=== PATIENT | female | born 2000 | race Caucasian/White ===

== ENCOUNTER 2023-01-19 08:00 | Emergency (ER) | payer BC, SELFPAY ==
[2023-01-19 08:07] VITALS: BP 120/81; PULSE 82; RESP 18; TEMP 36.6; O2SAT 100; BMI 20.4
--- NOTE | 2023-01-19 08:18 | XR_ITS ---
The [address] [address] Patient Name: LEYDI SHAH MRN: [id number] date: 2000 Sex: F Assigned Patient Location: ER Current Patient Location: Accession/Order Number: [id number] Exam Date: 01/19/2023 08:25 Report Date: 01/19/2023 08:52 At the request of: YAW VELÁSQUEZ Procedure: XR ankle LT min 3V PROCEDURE: XR ankle LT min 3V COMPARISON: None. HISTORY: fall FINDINGS: BONES:No fracture, acute abnormality, or significant arthropathy. SOFT TISSUES:Negative. No visible soft tissue swelling. EFFUSION:None visible. OTHER: Negative. XR/XR ankle LT min 3V IMPRESSION: No acute radiographic abnormality Electronically authenticated by: REENA RANDLE Date: 01/19/2023 08:52
--- NOTE | 2023-01-19 08:19 | ED.LOWEXI1 ---
HPI - Extremity Injury (Lower) General Chief Complaint: Extremity Injury, Lower Stated Complaint: LOWER EXTREMITY INJURY-L ANKLE Time Seen by Provider: 01/19/23 08:14 Source: patient Mode of arrival: walk-in History of Present Illness HPI Narrative: patient here with an injury to her left ankle. It is an isolated injury. She states that she was stepping out of her pickup truck and rolled her ankle while stepping down. She's had previous fractures to that area but thinks is probably a sprain today. Has no other collateral damage to the other orthopedic structures are joints. She was on her way to work. Most her pain is on the lateral aspect of her left ankle. Is not having pain in her knee or hip. Related Data Allergies Allergy/AdvReac Type Severity Reaction Status Date / Time penicillin G Allergy Mild Rash [facility] Social History Smoking status: Current every day smoker Exam Narrative Exam Narrative: awake alert pleasant good historian is not in severe distress. Problem focused examination shows no soft tissue swelling noted over the medial or lateral ankle. Achilles is in intact and normal with no discomfort. The gastrocnemius area is unremarkable. The knee is normal. She has mild tenderness over the anterior talofibular ligament. No tenderness over the medial deltoid. X-rays will be done by believe she has a grade 1-2 ankle sprain. Constitutional Vital Signs, click to edit/add: Last Vital Signs Temp 97.8 F 01/19/23 08:07 Pulse 82 01/19/23 08:07 Resp 18 01/19/23 08:07 BP 120/81 01/19/23 08:07 Pulse Ox 100 01/19/23 08:07 O2 Del Method Room Air 01/19/23 08:07 Course Vital Signs Vital signs: Vital Signs Temperature 97.8 F 01/19/23 08:07 Pulse Rate 82 01/19/23 08:07 Respiratory Rate 18 01/19/23 08:07 Blood Pressure 120/81 01/19/23 08:07 Pulse Oximetry 100 01/19/23 08:07 Oxygen Delivery Method Room Air 01/19/23 08:07 Temperature 97.8 F 01/19/23 08:07 Pulse Rate 82 01/19/23 08:07 Respiratory Rate 18 01/19/23 08:07 Blood Pressure 120/81 10/10/23 08:07 Pulse Oximetry 100 01/19/23 08:07 Oxygen Delivery Method Room Air 01/19/23 08:07 Discharge Plan Discharge Chief Complaint: Extremity Injury, Lower Clinical Impression: Ankle sprain and strain Patient Disposition: Home, Self-Care Time of Disposition Decision: 08:28 Additional Instructions: ice, elevate/splint for 7-10 days/follow-up with primary care doctor/Tylenol or [id number] NSAID Stand Alone Forms: Portal Instructions Referrals: EUNICE GALE [Primary Care Provider] - 1 week
== END 2023-01-19 08:40 | disposition home or self-care (01) ==
PROVIDERS: Emergency Provider Emergency Medicine Emergency Medical Services; PCP Student in an Organized Health Care Education/Training Program
DX: S93.402A Sprain of unspecified ligament of left ankle, initial encounter (principal); S96.912A Strain of unspecified muscle and tendon at ankle and foot level, left foot, initial encounter; X50.1XXA Overexertion from prolonged static or awkward postures, initial encounter; F17.210 Nicotine dependence, cigarettes, uncomplicated
CPT/HCPCS: 73610; 99283

== ENCOUNTER 2023-03-31 08:37 | Emergency (ER) | payer BC, SELFPAY ==
[2023-03-31 08:41] VITALS: BP 127/75; PULSE 74; RESP 16; TEMP 36.6; O2SAT 100; BMI 21.3
[2023-03-31 09:16] LABS: SARS-CoV-2 Ag NEGATIVE (NEGATIVE)
[2023-03-31 09:17] LABS: Influenza Virus A Antigen Negative; Influenza Virus B Antigen Negative; Internal Control Within Normal Limits; Strep A Antigen Screen Negative
--- NOTE | 2023-03-31 09:53 | ED.GENADUL1 ---
HPI - General Adult General Chief complaint: Upper Respiratory Infection Stated complaint: DIZZINESS/ COUGH Time Seen by Provider: 03/31/23 09:47 History of Present Illness HPI narrative: Patient is a 22-year-old female who is presenting to the Emergency Room today with chief complaint of flulike symptoms for the past 2 days. 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 Patient tested twice for COVID yesterday was negative, COVID a test was negative today as well. Patient says that she understands the test could be delayed if it is positive. Patient's taking nothing for her symptoms. Patient had no nausea, vomiting, diarrhea. Patient has no rash. Patient has been exposed to 2 COVID patient's yesterday. . All systems are negative except as noted/marked. All systems reviewed and otherwise negative. . Nurses note and vital signs reviewed and patient is not hypoxic. General: The patient appears well and in no apparent distress. Patient is resting comfortably on cart. Patient is not toxic, lethargic, or listless Skin: Warm, dry, no pallor noted. There is no rash noted. No petechiae, purpura. Head: Normocephalic, atraumatic Eye: Normal conjunctiva, no drainage, EOMI. PERRL Ears, Nose, Mouth, and Throat: oral mucosa is moist. Nares patent. Mouth without vesicles. Patient's left tympanic membrane shows air fluid levels 3-4 behind left tympanic membrane, no bulging, no erythema, no perforation. Right tympanic membrane shows no erythema, perforation or bulging. No air-fluid levels and right tympanic membrane. Patient has clear drainage noted to the posterior pharynx. Cobblestoning noted. No unilateral swelling. No acute findings. Cardiovascular: Regular Rate and Rhythm, no murmur, gallop, rub Respiratory: Patient is in no distress, no accessory muscle use, lungs are clear to auscultation, no wheezing, rales or rhonchi Musculoskeletal: Patient has full range of motion of all of the extremities, no motor, sensory, or focal neurological deficits Neurological: A&O x3, normal speech Psychiatric: Cooperative Related Data Allergies Allergy/AdvReac Type Severity Reaction Status Date / Time penicillin G Allergy Mild Rash Verified 03/31/23 08:45 cefdinir AdvReac Severe Anaphylaxis Verified 03/31/23 08:45 PFSH PFSH Social History Smoking status: Current every day smoker Exam Constitutional Vital Signs, click to edit/add: Last Vital Signs Temp 97.9 F 03/31/23 08:41 Pulse 74 03/31/23 08:41 Resp 16 03/31/23 08:41 BP 127/75 03/31/23 08:41 Pulse Ox 100 03/31/23 08:41 O2 Del Method Room Air 03/31/23 08:41 Course Vital Signs Vital signs: Vital Signs Temperature 97.9 F 03/31/23 08:41 Pulse Rate 74 03/31/23 08:41 Respiratory Rate 16 03/31/23 08:41 Blood Pressure 127/75 03/31/23 08:41 Pulse Oximetry 100 03/31/23 08:41 Oxygen Delivery Method Room Air 03/31/23 08:41 Temperature 97.9 F 03/31/23 08:41 Pulse Rate 74 03/31/23 08:41 Respiratory Rate 16 03/31/23 08:41 Blood Pressure 127/75 03/31/23 08:41 Pulse Oximetry 100 03/31/23 08:41 Oxygen Delivery Method Room Air 03/31/23 08:41 Medical Decision Making MDM Narrative Medical decision making narrative: Patient was educated on using multiple [id number] products to help treat her symptoms which she is doing nothing for right now. Patient rapid strep, influenza in color negative. Education done at bedside. Work note given. Patient is a follow-up with PCP for further evaluation. No questions at discharge Lab Data Labs: Lab Results 03/31/23 Range/Units 08:50 SARS-CoV-2 (PCR) Negative (NEGATIVE) Influenza Type A Ag Negative Influenza Type B Ag Negative Streptococcus Screen Negative Discharge Plan Discharge Chief Complaint: Upper Respiratory Infection Clinical Impression: Sinus congestion, URI (upper respiratory infection) Patient Disposition: Home, Self-Care Condition: Fair Instructions: Sinusitis (ED), Upper Respiratory Infection (ED), Acute Cough (ED) Additional Instructions: Use DayQuil, NyQuil, Flonase. Use Mucinex as needed. Use Tylenol Motrin as needed for aches and pains. Increase fluids. Stand Alone Forms: Work/School Release, Portal Instructions Referrals: EUNICE CAMARA [Primary Care Provider] - 1 week
[2023-04-01 16:03] LABS: SARS-CoV-2 NAA NOT DETECTED (NOT DETECTE)
== END 2023-03-31 09:58 | disposition home or self-care (01) ==
PROVIDERS: Emergency Provider Emergency Medicine; PCP Student in an Organized Health Care Education/Training Program
DX: J06.9 Acute upper respiratory infection, unspecified (principal); R09.81 Nasal congestion; F17.210 Nicotine dependence, cigarettes, uncomplicated; Z20.822 Contact with and (suspected) exposure to COVID-19
CPT/HCPCS: 87070; 87635; 87804; 87811; 87880; 99283

== ENCOUNTER 2023-10-07 19:48 | Emergency (ER) | payer BC, SELFPAY ==
[2023-10-07 19:53] VITALS: BP 118/75; PULSE 68; TEMP 36.8; O2SAT 98; BMI 21.5
--- OUTSIDE RECORDS SUMMARY | 2023-10-07 20:10 | XMS_ITS | CCD ---
Author Organization [facility] Care Team Providers Care Soft Water Mechanic Name Role Phone MISC, DOCTOR Primary Care Unavailable SABA SOLO Admitting Unavailable SABA SOLO Attending Unavailable SABA SOLO Consulting Unavailable DO Phillip Tripp Primary Care Provider DO Taran Rea Emergency Provider DO Phillip Shaw Emergency Provider UnaokBella Sky Primary Care Physician Taran Rea Attending Unavailable Phillip Tripp Primary Care Unavailable Taran Rea Admitting Unavailable Phillip Shaw Admitting Unavailable Phillip Shaw Attending Unavailable Phillip Tripp Primary Care Unavailable Grabiel Castellanos Admitting Unavailable Grabiel Castellanos Attending Unavailable Bella Camara MD Primary Care Provider Morenita Page Unavailable [phone] Michael Hannah Attending Unavailable Michael Hannah Attending Unavailable ELISABET GIRON Attending Unavailab BELLA Dong Attending Unavailable MIRACLE PADILLA Attending Unavailable MIRACLE PADILLA Attending Unavailable SHALA CONN Referring Unavailable HSALA CONN Referring Unavailable GRAZYNA GONZALEZ Attending Unavailable SHALA CONN Attending Unavailable SHALA CONN Referring Unavailable ELISABET GIRON Attending Unavailab SHELLY Zuniga Attending Unavailable SHALA CONN Referring Unavailable BELLA CAMARA Attending Unavailable SHALA CONN Attending Unavailable SHALA CONN Referring Unavailable ELISABET GIRON Attending Unavailab ELISABET Mata Attending Unavailab MIRACLE Richardson Attending Unavailable HILLS, SHALA D Referring Unavailable HILLS, SHALA D Attending Unavailable HILLS, SHALA D Referring Unavailable RODRIGUEZ, KHOA Jorgensen Attending Unavailable HOA, BELLA Shaw Attending Unavailable ALLSOPBACILIO Attending Unavailable RODRIGUEZ, KHOA Jorgensen Attending Unavailable HOA, BELLA Shaw Attending Unavailable GONZALEZ, GRAZYNA Shaw Attending Unavailable GONZALEZ, GRAZYNA Shaw Attending Unavailable GONZALEZ, GRAZYNA Shaw Attending Unavailable RODRIGUEZ, KHOA Jorgensen Attending Unavailable MEDVES, TREY Shaw Attending Unavailable RODRIGUEZ, KHOA T Referring Unavailable FREEMAN, ASHLIE Attending Unavailable RODRIGUEZ, KHOA Jorgensen Referring Unavailable FREEMAN, ASHLIE Attending Unavailable RODRIGUEZ, KHOA T Referring Unavailable HOA, BELLA Shaw Attending Unavailable HOA, BELLA Shaw Attending Unavailable RODRIGUEZ, KHOA Jrogensen Attending Unavailable FREEMAN, ASHLIE Attending Unavailable RODRIGUEZ, KHOA T Referring Unavailable MEDVES, TREY Shaw Attending Unavailable RODRIGUEZ, KHOA T Referring Unavailable HILLS, SHALA D Referring Unavailable HILLS, SHALA D Referring Unavailable HILLS, SHALA D Attending Unavailable HILLS, SHALA D Referring Unavailable GONZALEZ, GRAZYNA Shaw Attending Unavailable FREEMAN, ASHLIE Attending Unavailable RODRIGUEZ, KHOA T Referring Unavailable HOA, BELLA Shaw Attending Unavailable MEDVES, TREY Shaw Attending Unavailable RODRIGUEZ, KHOA T Referring Unavailable NEILABIGAIL Attending Unavailable HOA, BELLA Shaw Referring Unavailable Unavailable Unavailable Unavailable Allergies Allergy Classification Reported Allergen(s) Allergy Type Date of Onset Reaction(s) Facility (4 sources) Penicillins Drug allergy (disorder) 4 [facility] Repository (3 sources) Penicillin; Translations: [penicillin] Drug Allergy [facility] (1 source) Penicillins Drug allergy (disorder) 3 [facility] Repository (12 sources) cefdinir Drug Allergy 2 [facility] (12 sources) Penicillins Drug Allergy 1 Rash [facility] (1 source) No Known Medication Allergies; Translations: [No Known Medication Allergies] Propensity to adverse reactions (disorder) [facility] Repository Medications Current Medications Medication Drug Class(es) Dates Sig (Normalized) Sig (Original) acetaminophen 325 mg oral tablet (8 sources) acetaminophen (Tylenol) 325 MG tablet albuterol 0.83 mg/ml inhalation solution (20 sources) beta2-Adrenergic Agonist Start: 01-18-2023 End: 01-18-2024 albuterol (2.5 MG/3ML) 0.083% nebulizer solution Indications: Shortness of breath Take 3 mL (2.5 mg) by nebulization every 6 (six) hours if needed for wheezing. 75 mL 11 01/18/2023 01/18/2024 Active Start: 01-01-2023 take 2 puff(s) by in halation every four hours albuterol HFA 90 mcg/act inhaler Indications: Acute cough Inhale 2 puffs every 4 (four) hours if needed (cough). 18 g 3 01/01/2023 Active Start: 01-31-2020 End: 02-29-2020 take 1 puff(s) by inhalation four times daily Albuterol Sulfate Discontinued 2 PUFF INHALATION Four times daily January 31, 2020 5:10pm February 29, 2020 9:26am Start: 12-13-2018 Albuterol Sulf ate Active 2 INH Inhalation EVERY 4-6 HOURS December 13, 2018 4:27pm Start: 12-13-2018 End: 09-18-2019 Albuterol Sulfate Discontinu ed 2 INH INHALATION EVERY 4-6 HOURS December 12, 2018 11:00pm September 18, 2019 8:43pm benzonatate 200 mg oral capsule (4 sources) Non-narcotic Antitussive Start: 04-08-2022 take 200 mg by mouth three times daily Benzonatate Active 200 MG PO Three times daily April 08, 2022 12:00am Start: 05-10-2017 End: 07-19-2017 take 1 capsule by mouth three times daily Benzonatate (Tessalon Perles) 100 mg capsule Discontinued 100 MG PO Three times daily May 10, 2017 12:00am July 19, 2017 11:58am busPIRone hydrochloride 10 mg oral tablet (14 sources) Start: 05-26-2023 take 1 tablet by mouth in the morning, then take 1 tablet by mouth in the evening, then take 1 tablet by mouth at bedtime busPIRone (Buspar) 10 MG tablet Indications: Anxiety Take 1 tablet (10 mg) by mouth in the morning and 1 tablet (10 mg) in the evening and 1 tablet (10 mg) before bedtime. 90 tablet 1 05/26/2023 Active Start: 03-02-2023 End: 05-26-2023 take 1 tablet by mouth in the morning busPIRone (Buspar) 5 MG tablet Indications: Anxiety Take 1 tablet (5 mg) by mouth in the morning and 1 tablet (5 mg) before bedtime. 60 tablet 2 03/02/2023 05/26/2023 Discontinued (Reorder) DULoxetine 60 mg delayed release oral capsule (20 sources) Serotonin and Norepinephrine Reuptake Inhibitor Start: 09-08-2022 End: 05-25-2024 take 1 capsule by mouth in the morning DULoxetine (Cymbalta) [address] capsule Indications: Anxiety Take 1 capsule (60 mg) by mouth in the morning. Do not crush or chew. . 100 capsule 3 05/26/2023 05/25/2024 Active Start: 03-03-2019 End: 10-26-2021 take 1 capsule by mouth once daily Duloxetine (Cymbalta) 20 mg capsule,delayed release(DR/EC) Active 20 MG PO Daily October 26, 2021 11:02am Start: 06-09-2018 End: 08-09-2018 take 60 mg by mouth once daily Duloxetine Discontinued 60 MG PO Daily June 09, 2018 12:00am August 09, 2018 1:38pm Start: 07-19-2017 End: 07-25-2017 take 10 mg by mouth once daily Duloxetine Discontinued 10 MG PO Daily July 18, 2017 11:00pm July 25, 2017 8:23pm Etonogestrel (Nexplanon) 68 mg Implant (2 sources) Start: 02-29-2020 Etonogestrel (Nexplanon) 68 mg Implant Active 1 IMPLANT SUBDERMAL Once February 29, 2020 12:00am loratadine 10 mg oral tablet (12 sources) Start: 09-24-2022 take 1 tablet by mouth in the morning loratadine (Claritin) 10 MG tablet Indications: Ear itching , Seasonal allergies Take 1 tablet (10 mg) by mouth in the morning. 30 tablet 2 09/24/2022 Active 1 ml medroxyPROGESTERone acetate 150 mg/ml prefilled syringe (12 sources) Progestin Start: 08-26-2022 inject 1 mL by intramuscular injection every three months medroxyPROGESTERone (Depo-Provera) 150 MG/ML suspension prefilled syringe injection syringe 1 mL Intramuscular every 3 months for 30 days 0 08/26/2022 Active meloxicam 15 mg oral tablet (12 sources) Nonsteroidal Anti-inflammato ry Drug Start: 05-12-2023 End: 08-10-2023 take 1 tablet by mouth in the morning meloxicam (Mobic) 15 MG tablet Indications: Levoscoliosis , Trochanteric bursitis of right hip Take 1 tablet (15 mg) by mouth in the morning. 90 tablet 0 05/12/2023 08/10/2023 Active Nebulizer misc (12 sources) Start: 02-10-2023 End: 02-10-2024 Nebulizer misc Indications: Shortness of breath 1 each every 4 (four) hours. 1 each 0 02/10/2023 02/10/2024 Active ondansetron 4 mg oral tablet (3 sources) Serotonin-3 Receptor Antagonist Start: 04-12-2022 take 4 mg by mouth every eight hours Ondansetron Hcl Active 4 MG PO Q8H 15 April 12, 2022 12:00am Start: 04-08-2022 take 4 mg by mouth e very six hours Ondansetron Active 4 MG PO Q6H April 08, 2022 12:00am oseltamivir 75 mg oral capsule (3 sources) Neuraminidase Inhibitor Start: 04-12-2022 take 1 capsule by mouth every twelve hours Oseltamivir (Tamiflu) 75 mg capsule Active 75 MG PO Q12H 10 April 12, 2022 12:00am Start: 05-10-2017 End: 05-15-2017 take 1 capsule by mouth twice daily Oseltamivir (Tamiflu) 75 mg capsule Discontinued 75 MG PO Twice daily 10 May 10, 2017 12:00am May 15, 2017 12:04am Pnv Cmb#95-Ferrous Fumarate-Fa (1 source) Start: 09-03-2018 take 1 tablet by mouth once daily Pnv Cmb#95-Ferrous Fumarate-Fa Active 1 TAB Oral Daily September 03, 2018 1:03pm predniSONE 10 mg oral tablet (6 sources) Start: 05-20-2023 take 5 tablets by mouth once daily, then take 4 tablets by mouth once daily, then take 3 tablets by mouth once daily, then take 2 tablets by mouth once daily, then take 1 tablet by mouth once daily predniSONE (Deltasone) 10 MG tablet Indications: It band syndrome, right , Trochanteric bursitis of right hip Take 5 tabs p.o. daily x3 days Take 4 tabs p.o. daily x3 days Take 3 tabs p.o. daily x3 days Take 2 tabs p.o. daily x3 days Take 1 tab p.o. daily x3 days 45 tablet 0 05/20/2023 Active sucralfate 1000 mg oral tablet (2 sources) Aluminum Complex Start: 11-10-2022 End: 11-17-2022 take 1 tablet by mouth four times daily sucralfate 1 g Tab 1 gm = 1 tab(s), Oral, QID, X 7 day(s), # 28 tab(s), Refills(s) 0 Start Date: 11/10/22 Stop Date: 11/17/22 Status: Ordered Start: 04-12-2022 take 1 tablet by shirlene th twice daily Sucralfate (Carafate) 1 gram tablet Active 1 GM PO Twice daily 10 April 12, 2022 11:39pm traZODone hydrochloride 50 mg oral tablet (12 sources) Serotonin Reuptake Inhibitor Start: 01-25-2023 take 0.5 tablet by mouth at bedtime traZODone (Desyrel) 50 MG tablet Indications: Difficulty sleeping take 1/2 tablet by mouth at bedtime 15 tablet 1 01/25/2023 Active varenicline 1 mg oral tablet (12 sources) Partial Cholinergic Nicotinic Agonist Start: 04-20-2023 take 1 tablet by mouth in the morning Varenicline Tartrate, Starter, (Chantix Starting Month ) 0.5 MG X 11 & 1 MG X 42 tablet therapy pack Indications: Tobacco abuse Take 1 Dose by mouth in the morning and 1 Dose before bedtime. 42 each 0 04/20/2023 Active Completed/Discontinued Medications Medication Drug Class(es) Dates Sig (Normalized) Sig (Original) azithromycin 250 mg oral tablet (2 sources) Macrolide Antimicrobial Start: 03-17-2023 End: 05-12-2023 azithromycin (Zithromax) 250 MG tablet Indications: Strep throat Take 2 tabs PO x 1 day then 1 tab PO daily x 4 days 6 tablet 0 03/17/2023 05/12/2023 Discontinued cefdinir 300 mg oral capsule (2 sources) Cephalosporin Antibacterial Start: 09-17-2021 End: 10-26-2021 take 300 mg by mouth twice daily Cefdinir Discontinued 300 MG PO Twice daily 20 September 16, 2021 11:00pm October 26, 2021 11:03am cephalexin 500 mg oral capsule (4 sources) Cephalosporin Antibacterial Start: 09-03-2018 End: 09-09-2018 take 1 capsule by mouth twice daily Cephalexin (Keflex) 500 mg capsule Discontinued 500 MG PO Twice daily 10 September 02, 2018 11:00pm September 09, 2018 10:03pm Start: 04-14-2018 End: 06-04-2018 take 1 capsule by mouth twice daily Cephalexin (Keflex) 500 mg capsule Discontinued 500 MG PO Twice daily 14 April 14, 2018 12:00am June 04, 2018 8:24pm docusate sodium 100 mg oral capsule (3 sources) Start: 03-04-2019 End: 09-18-2019 take 100 mg by mouth once daily at bedtime Docusate Sodium Discontinued 100 MG PO Daily at bedtime March 04, 2019 12:00am September 18, 2019 8:43pm Norethindrone-Ethi n Estradiol (2 sources) Estrogen Start: 05-10-2017 End: 07-25-2017 take 1 tablet by mouth once daily Norethindrone-Ethi n Estradiol (Balziva (28)) 0.4-35 mg-mcg tablet Discontinued 1 TAB PO Daily May 10, 2017 12:00am July 25, 2017 8:23pm Etonogestrel-Ethin yl Estradiol (Nuvaring) 0.12-0.015 mg/24 hr Ring (2 sources) Start: 03-18-2021 End: 04-07-2022 Etonogestrel-Ethin yl Estradiol (Nuvaring) 0.12-0.015 mg/24 hr Ring Discontinued 1 VAG RING VAGINAL EVERY 4 WEEKS March 18, 2021 12:00am April 07, 2022 11:24pm ferrous sulfate 325 mg oral tablet (2 sources) Start: 10-18-2017 End: 04-12-2018 take 325 mg by mouth twice daily Ferrous Sulfate Discontinued 325 MG PO Twice daily October 17, 2017 11:00pm April 12, 2018 2:35am hydrOXYzine pamoate 50 mg oral capsule (2 sources) Antihistamine Start: 10-11-2018 End: 10-29-2018 take 1 capsule by mouth every eight hours Hydroxyzine Pamoate (Vistaril) 50 mg capsule Discontinued 50 MG PO Q8H October 10, 2018 11:00pm October 29, 2018 11:32am ibuprofen 600 mg oral tablet (20 sources) Nonsteroidal Anti-inflammatory Drug Start: 09-17-2021 End: 10-26-2021 take 600 mg by mouth every eight hours Ibuprofen Discontinued 600 MG PO Q8H September 16, 2021 11:00pm October 26, 2021 11:03am Start: 02-29-2020 End: 03-18-2021 take 600 mg by mouth three times daily Ibuprofen Discontinued 600 MG PO Three times daily February 29, 2020 12:00am March 18, 2021 9:50am Start: 09-18-2019 End: 02-29-2020 take 800 mg by mouth three times daily Ibuprofen Discontinued 800 MG PO Three times daily September 17, 2019 11:00pm February 29, 2020 9:26am Start: 03-03-2019 End: 09-18-2019 Ibuprofen Discontinued 800 M G PO every 6 to 8 hours March 03, 2019 12:00am September 18, 2019 8:43pm Start: 04-14-2018 End: 06-04-2018 take 800 mg by mouth three times daily Ibuprofen Discontinued 800 MG PO Three times daily April 14, 2018 12:00am June 04, 2018 8:24pm Start: 02-22-2018 End: 03-13-2018 take 600 mg by mouth three times daily Ibuprofen Discontinued 600 MG PO Three times daily February 22, 2018 11:44pm March 13, 2018 7:19pm Start: 07-25-2017 End: 10-18-2017 take 600 mg by mouth every eight hours Ibuprofen Discontinued 600 MG PO Q8H July 24, 2017 11:00pm October 18, 2017 12:25pm Start: 05-10-2017 End: 07-19-2017 Ibuprofen Discontinued 600 M G PO every 6 to 8 hours May 10, 2017 12:00am July 19, 2017 11:58am End: 05-19-2023 ibuprofen 200 MG tablet Take 600 mg by mouth if needed for mild pain OTC 0 05/19/2023 Discontinued methocarbamol 500 mg oral tablet (2 sources) Muscle Relaxant Start: 12-23-2019 End: 02-29-2020 take 500 mg by mouth three times daily Methocarbamol Discontinued 500 MG PO Three times daily December 23, 2019 9:28am February 29, 2020 9:26am metoclopramide 10 mg oral tablet (2 sources) Dopamine-2 Receptor Antagonist Start: 03-28-2018 End: 04-12-2018 take 10 mg by mouth every six hours Metoclopramide Hcl Discontinued 10 MG PO Q6H March 28, 2018 8:37pm April 12, 2018 2:35am minocycline 100 mg oral capsule (2 sources) Tetracycline-class Drug Start: 02-01-2023 End: 05-12-2023 take 1 capsule by mouth in the morning minocycline 100 MG capsule Indications: Acne vulgaris Take 1 capsule (100 mg) by mouth in the morning. 30 capsule 2 02/01/2023 05/12/2023 Discontinued naproxen 500 mg oral tablet (2 sources) Nonsteroidal Anti-inflammatory Drug Start: 07-19-2017 End: 07-25-2017 take 500 mg by mouth twice daily at mealtime Naproxen Discontinued 500 MG PO Twice daily July 18, 2017 11:00pm July 25, 2017 8:23pm administer with food or milk nicotine 2 mg chewing gum (2 sources) Cholinergic Nicotinic Agonist Start: 06-09-2018 End: 06-21-2018 Nicotine (Polacrilex) (Nicorelief) 2 mg Gum Discontinued 2 MG BUCCAL Every 2 hours June 09, 2018 12:00am June 21, 2018 7:44pm nitrofurantoin, macrocrystals 25 mg / nitrofurantoin, monohydrate 75 mg oral capsule (4 sources) Nitrofuran Antibacterial Start: 11-11-2018 End: 11-21-2018 take 1 capsule by mouth every twelve hours at mealtime Nitrofurantoin Monohyd/M-Cryst (Macrobid) 100 mg capsule Discontinued 100 MG PO Q12H 6 3 November 10, 2018 11:00pm November 21, 2018 3:12pm must administer with a meal/food Start: 07-20-2017 End: 07-25-2017 take 1 capsule by mouth every twelve hours at mealtime Nitrofurantoin Monohyd/M-Cryst (Macrobid) 100 mg capsule Discontinued 1 CAP PO Q12H 10 July 19, 2017 11:00pm July 25, 2017 8:23pm administer with a meal/food; swallow whole; do not open, crush, dissolve , or chew Pn Cmb#95-Ferrous Fumarate-Fa () 28 mg iron- 800 mcg Tablet (2 sources) Start: 09-03-2018 End: 09-18-2019 take 1 tablet by mouth once daily Pnv Cmb#95-Ferrous Fumarate-Fa () 28 mg iron- 800 mcg Tablet Discontinued 1 TAB PO Daily September 02, 2018 11:00pm September 18, 2019 8:43pm (2 sources) Start: 10-18-2017 End: 04-12-2018 take 2 tablets by mouth once daily Discontinued 2 TAB PO Daily October 17, 2017 11:00pm April 12, 2018 2:35am 1 ml promethazine hydrochloride 25 mg/ml injection (20 sources) Phenothiazine Start: 05-05-2023 End: 05-25-2023 promethazine (Phenergan) injection 25 mg Start: 11-10-2022 take 1 tablet by shirlene th every six hours as needed for nausea promethazine 25 mg Tab 25 mg = 1 tab(s), Oral, q6hr, PRN as needed for nausea/vomiting, # 12 tab(s), Refills(s) 0 Start Date: 11/10/22 Status: Ordered Start: 03-18-2021 End: 10-26-2021 take 25 mg by mouth four times daily Promethazine Discontinued 25 MG PO Four times daily March 18, 2021 10:51am October 26, 2021 11:03am Start: 08-16-2018 End: 09-03-2018 take 25 mg by mouth every six hours Promethazine Discontinued 25 MG PO Q6H August 15, 2018 11:00pm September 03, 2018 11:07am Start: 08-16-2018 End: 09-03-2018 Promethazine (Phenergan) 25 mg suppository Discontinued 25 MG [place] Q4H August 15, 2018 11:00pm September 03, 2018 11:07am Start: 08-09-2018 End: 09-03-2018 take 25 mg by mouth three times daily Promethazine Discontinued 25 MG PO Three times daily August 08, 2018 11:00pm September 03, 2018 11:07am Start: 03-13-2018 End: 04-12-2018 take 25 mg by mouth every six hours Promethazine Discontinued 25 MG PO Q6H March 13, 2018 12:00am April 12, 2018 2:35am traMADol hydrochloride 50 mg oral tablet (2 sources) Opioid Agonist Start: 11-11-2018 End: 11-21-2018 take 1 tablet by mouth every eight hours Tramadol (Ultram) 50 mg tablet Discontinued 50 MG PO Q8H 6 2 November 10, 2018 11:00pm November 21, 2018 3:11pm Vitamin D3 (2 sources) Start: 10-18-2017 End: 04-12-2018 take 48555 [IU] by mouth once daily Vitamin D3 Discontinued [id number] UNIT PO Daily October 17, 2017 11:00pm April 12, 2018 2:35am Problems Active Problems Problem Classification Problem Date Documented Da te Episodic/Chronic Abdominal pain (1 source) Abdominal pain; Translations: [Unspecified abdominal pain] Onset: 11-10-2022 Episodic Anxiety disorders (20 sources) Mixed anxiety and depressive disorder; Translations: [Anxiety] Onset: 12-17-2016 10-11-2018 Chronic Fever of unknown origin (1 source) Fever; Translations: [Fever, unspecified] 04-12-2022 Episodic Headache; including migraine (7 sources) Headache; Translations: [Headache] 07-19-2017 Episodic Influenza (6 sources) Influenza; Translations: [Influenza due to Influenza A virus] 04-08-2022 Episodic Miscellaneous mental health disorders (18 sources) Dissociative convulsions; Translations: [Conversion disorder with seizures or convulsions] Onset: 11-14-2018 07-20-2017 Chronic Mood disorders (15 sources) Severe major depression; Translations: [Major depressive disorder, single episode, severe without psychotic features] Onset: 11-25-2022 06-05-2018 Chronic Nonspecific chest pain (1 source) Chest pain; Translations: [Chest pain, unspecified] 04-12-2022 Episodic Other acquired deformities (2 sources) Levoscoliosis; Translations: [Other forms of scoliosis, site unspecified] 05-12-2023 Chronic Other bone disease and musculoskeletal deformities (12 sources) Scoliosis of lumbar spine; Translations: [Other idiopathic scoliosis, lumbar region] Onset: 09-09-2022 09-09-2022 Chronic Other complications of (4 sources) Vomiting of , unspecified; Translations: [VOMITING OF UNSPECIFIED] Onset: 09-10-2018 Episodic Other complications of (3 sources) Complication of , childbirth and/or the puerperium; Translations: [Other specified related conditions, unspecified trimester] 09-03-2018 Episodic Other complications of (3 sources) Asymptomatic bacteriuria in ; Translations: [Asymptomatic bacteriuria during ] 09-03-2018 Episodic Other complications of (3 sources) Vomiting of ; Translations: [Vomiting of , unspecified] 08-16-2018 Episodic Other connective tissue disease (3 sources) Pain in lower limb; Translations: [Pain in right leg] 10-11-2018 Episodic Other connective tissue disease (2 sources) Iliotibial band friction syndrome of right knee; Translations: [Iliotibial band syndrome, right leg] 05-19-2023 Episodic Other connective tissue disease (6 sources) Trochanteric bursitis of right hip; Translations: [Trochanteric bursitis, right hip] 05-19-2023 Episodic Other injuries and conditions due to external causes (2 sources) Injury of rotator cuff; Translations: [Unspecified injury of muscle(s) and tendon(s) of the rotator cuff of unspecified shoulder, initial encounter] 09-18-2019 Episodic Other injuries and conditions due to external causes (2 sources) Injury of nose; Translations: [Unspecified injury of nose, initial encounter] 05-25-2023 Episodic Other lower respiratory disease (1 source) Dyspnea; Translations: [Shortness of breath] Onset: 11-10-2022 Episodic Other non-traumatic joint disorders (2 sources) Pain in right hip joint; Translations: [Pain in right hip] 05-19-2023 Episodic Other upper respiratory infections (7 sources) Upper respiratory infection; Translations: [Acute upper respiratory infection, unspecified] 01-31-2020 Episodic Otitis media and related conditions (2 sources) Acute left otitis media; Translations: [Otitis media, unspecified, left ear] 09-17-2021 Episodic Poisoning by other medications and drugs (3 sources) Acetaminophen overdose; Translations: [Poisoning by 4-Aminophenol derivatives, accidental (unintentional), initial encounter] 06-05-2018 Episodic Residual codes; unclassified (1 source) Tobacco user; Translations: [Chews tobacco] Chronic Residual codes; unclassified (2 sources) Tobacco user; Translations: [Tobacco use] 06-05-2018 Episodic Residual codes; unclassified (2 sources) Body mass index 20-24 - normal; Translations: [Body mass index (BMI) 21.0-21.9, adult] 05-25-2023 Episodic Residual codes; unclassified (1 source) 12 weeks gestation of ; Translations: [12 WEEKS GESTATION OF ] Onset: 09-13-2018 Screening and history of mental health and substance abuse codes (1 source) Personal history of nicotine dependence; Translations: [PERSONAL HISTORY OF NICOTINE DEPEND] Onset: 09-13-2018 Episodic Sprains and strains (8 sources) Sprain of knee; Translations: [Sprain of unspecified site of unspecified knee, initial encounter] Onset: 05-27-2023 07-25-2017 Episodic Substance-related disorders (20 sources) Cannabis abuse; Translations: [Cannabis abuse, uncomplicated] Onset: 09-24-2022 01-17-2019 Chronic Comment on above: Added secondary to d ocumentation in Social History. Suicide and intentional self-inflicted injury (1 source) Suicidal intent; Translations: [Feeling like committing suicide] Chronic Suicide and intentional self-inflicted injury (2 sources) Suicidal intent; Translations: [Suicidal ideations] 06-05-2018 Episodic Superficial injury; contusion (2 sources) Contusion of hand; Translations: [Contusion of right hand, initial encounter] 10-26-2021 Episodic Unclassified (1 source) Fever, unspecified; Translations: [Fever, unspecified] Onset: 04-13-2022 Unclassified (1 source) Cough, unspecified; Translations: [Cough, unspecified] Onset: 04-08-2022 Urinary tract infections (3 sources) Urinary tract infectious disease; Translations: [Urinary tract infection, site not specified] 07-20-2017 Episodic Past or Other Problems Problem Classification Problem Date Documented Da te Episodic/Chronic Genitourinary symptoms and ill-defined conditions (12 sources) Dysuria; Translations: [Dysuria] Onset: 02-01-2023 Resolved: 05-26-2023 02-01-2023 Episodic Inflammatory diseases of female pelvic organs (12 sources) Acute vaginitis; Translations: [Acute vaginitis] Onset: 01-01-2023 Resolved: 05-26-2023 01-01-2023 Episodic Other connective tissue disease (12 sources) Bursitis of olecranon of left elbow; Translations: [Olecranon bursitis, left elbow] Onset: 09-09-2022 Resolved: 11-25-2022 11-25-2022 Episodic Other lower respiratory disease (12 sources) Cough; Translations: [Acute cough] Onset: 01-01-2023 Resolved: 05-26-2023 01-01-2023 Episodic Other skin disorders (12 sources) Acne vulgaris; Translations: [Acne vulgaris] Onset: 02-01-2023 02-01-2023 Episodic Spondylosis; intervertebral disc disorders; other back problems (20 sources) Sciatica; Translations: [Other specified dorsopathies, lumbosacral region] Onset: 09-09-2022 09-09-2022 Episodic Results Test Name Value Interpretation Reference Range Facility MR KNEE RIGHT WO IV CONTRAST on 06-17-2023 MR KNEE RIGHT WO IV CONTRAST Exam: MR KNEE RIGHT WO IV CONTRAST History: Medial meniscus tear Technique: Multiplanar multisequence MRI of the knee was performed without contrast. Comparison: Radiographs May 31, 2019 Findings: Quadriceps and patellar tendons are intact. No joint effusion. Anterior and posterior cruciate ligaments are intact. The medial collateral ligament, lateral collateral ligament, and popliteus are intact. Subtle horizontally oriented linear hyperintense signal of the body through posterior horn appears to reach the articular surface on one image. The lateral meniscus is intact. No well-defined or measurable cartilage defect identified. Popliteal fossa structures are intact. No Young cyst. IMPRESSION: Possible horizontal tear of the body through posterior horn of the medial meniscus. ELECTRONICALLY SIGNED BY: Sami Yanez, DO Normal Not Available Comment on above: Order Comment: Left ear surgery Consent for Treatmenton 05-13 Consent for Treatment [id number] .00TIFF [facility] Discharge Instructionson Discharge Instructions [id number]# 1.00TIFF [facility] ED Clinical Summaryon 2023 ED Clinical Summary [address] [address] ED Clinical Summary Person Information Name: PABLO MAURYNACHO Gonzalez/[facility] Age: 22 Years : 2000 Sex: Female Language: Israeli PCP: Hoa JASSO, Bella Shaw Marital Status: Single Visit Id: Visit Reason: Knee pain-swelling; TWISTED RIGHT KNEE- PAINFUL Speciality: Acuity: 4 Enc Type: Emergency Med Service: Emergency Arrival: 05/27/2023 11:15:44 Discharge: 05/27/2023 13:04:38 LOS: 000 01:49 Checkin: 05/27/2023 11:15:44 Checkout: 05/27/2023 13:04:38 Dispo Type: Home (Routine DC) EVENTS: Event Name Event Status Request Date/Time Start Date/Time Complete Date/Time Arrive Complete 05/27/2023 11:15:44 05/27/2023 11:15:44 05/27/2023 11:15:44 Document Home Meds Request 05/27/2023 11:15:44 Triage Complete 05/27/2023 11:15:44 05/27/2023 11:24:59 05/27/2023 11:24:59 Bed Assign Complete 05/27/2023 11:19:16 05/27/2023 11:19:16 05/27/2023 11:19:16 Dr Exam Complete 05/27/2023 11:19:16 05/27/2023 11:22:21 05/27/2023 11:22:21 RN Exam Complete 05/27/2023 11:19:16 05/27/2023 11:54:39 05/27/2023 11:54:39 Registration Complete 05/27/2023 11:22:21 05/27/2023 11:52:04 05/27/2023 11:52:04 X-Ray Complete 05/27/2023 11:22:39 05/27/2023 11:27:13 05/27/2023 11:41:53 Dr Exam Complete 05/27/2023 11:32:23 05/27/2023 11:32:23 05/27/2023 11:32:23 Wet Read Request 05/27/2023 11:41:53 Reg Complete Request 05/27/2023 11:52:04 Reg Bed Request Complete 05/27/2023 11:52:04 05/27/2023 11:52:04 05/27/2023 11:52:04 Discharge Complete 05/27/2023 12:39:12 05/27/2023 13:04:43 05/27/2023 13:04:43 Patient Care Request 05/27/2023 12:39:35 Transfer Complete 05/27/2023 13:04:43 05/27/2023 13:04:43 05/27/2023 13:04:43 ADDRESS: [address] [place] [id number] PHYS DOC NOTES: MEDICAL INFORMATION: Prescriptions Given: Medications to Continue with No Changes Other Medications promethazine (promethazine 25 mg Tab) 1 Tablets By Mouth every 6 hours as needed as needed for nausea/vomiting. Refills: 0. PATIENT EDUCATION INFORMATION: Instructions: Knee Sprain, Adult Follow up: With: Address: When: Russell Chavez [address] [place], [place] [id number] [employer] (1) In 3 days 05/30/2023 DIAGNOSIS: Knee sprain [facility] ED Noteon 05-27-2023 ED Note [id number]# 1.00TIFF [facility] ED Note-Physicianon 05-27-19 ED Note-Physician Basic Information Time Seen: Pola Purcell PA-C 05/27/2023 11:22 Chief Complaint pt reports R knee pain following twisting motion. pt reports hearing their knee pop . History of Present Illness 22-year-old female comes to the ED for evaluation of knee pain. The patient states she twisted today, feeling a pop in her knee. She points to the medial aspect as the area of tenderness. She has difficulty with weightbearing. No acute weakness. No other area of injury or concern. No prior treatments. No previous surgeries to this knee. Review of Systems A 10 point review of systems is negative except as noted above. Medical and Surgical History: Reviewed and noted Social history: Lives at home Tobacco: Denies Physical Exam Vitals & Measurements T: 36.4 ?C(Oral) HR: 61(Peripheral) RR: 20 BP: 124/84 SpO2: 99% HT: 175.26 cm WT: 66.2 kg BMI: 21.55 Nurses notes and vital signs reviewed and patient is not hypoxic. General: The patient appears well, resting comfortably. Skin: Warm, dry. Head: Atraumatic. Neck: No JVD. Eye: Normal conjunctiva. Ears, Nose, Mouth, and Throat: Moist mucous membranes. Cardiovascular: Strong distal pulses. Chest wall: Respiratory: Respirations are nonlabored. Back: Normal range of motion. Musculoskeletal: Tenderness on the medial aspect of the right knee made worse with medial stresses. There is no laxity Good range of motion of flexion and extension. No appreciable soft tissue swelling.. Gastrointestinal: Urological: Neurological: Awake and alert. No focal deficits. Follows commands. Psychiatric: Cooperative. Medical Decision Making Patient has medial tenderness on examination. There is no joint laxity and she has good range of motion. Imaging with no acute findings. She feels like the knee is unstable and difficulty weightbearing, therefore she is fitted with a knee immobilizer and is discharged to follow-up with orthopedics. Patient was encouraged to return to the ED if symptoms worsen or change. Assessment/Plan Knee sprain (S83.90XA: Sprain of unspecified site of unspecified knee, initial encounter) Orders: Knee Brace XR Knee Complete 4+ Views Right Disposition Plan Patient Discharge Condition Disposition: Discharged home Condition: Improved and stable Counseled: Patient and/or family were counseled to workup, results, treatment plan and follow-up recommendations Discharge Prescription List Prescriptions No active prescription medications Follow-up With When Contact Information Russell Scott In 3 days 05/30/[address] [place] [id number] [facility] (1) Additional Instructions: Patient Education Knee Sprain, Adult Attestation I performed a substantive part of the MDM during the patient?s E/M visit. I personally made or approved the documented management plan and acknowledge its risk of complications. (Independent Interpretation) My (EKG/X-Ray/US/CT) interpretation as above. (Discussion) Management/test interpretation discussed with APC. This report was transcribed using voice recognition software. Every effort was made to ensure accuracy, however, inadvertently computerized sports information director mistakes may be present. Appropriate healthcare PPE was used in evaluating this patient. Problem List/Past Medical History Ongoing Smoker Historical No qualifying data Medications Inpatient No active inpatient medications Home promethazine 25 mg Tab, 25 mg= 1 tab(s), Oral, q6hr, PRN Allergies penicillin (Hives) Social History Alcohol - Low Risk, 11/10/2022 Substance Abuse - Denies Substance Abuse, 11/10/2022 Tobacco - High Risk, 11/10/2022 10 or more cigarettes (1/2 pack or more)/day in last 30 days Tobacco Use:., 11/10/2022 Lab Results No qualifying data available. Diagnostic Results XR Knee Complete 4+ Views Right 05/27/23 11:55:34 IMPRESSION: NEGATIVE RIGHT KNEE. CLINICAL HISTORY: Pain, Traumatic COMPARISON: NONE. FINDINGS: 4 views of the right knee demonstrate no evidence of a fracture, dislocation, bone or joint abnormality. Ordering Provider: Pola Purcell Signed By: Kalin Goldberg MD 05/27/23 11:41:53 Radiation Dose: Ka,r in mGy = na DAP = na Signed By: Kalin Goldberg MD [facility] Comment on above: Result Comment: Elec tronically Signed By: Pola Purcell PA-C\.br\Date and Time Signed: 05/27/23 17:53 EST\.br\Electronically Co-Signed By: Michael Hannah M.D.\.br\Date and Time Co-Signed: 05/27/23 20:19 EST ED Patient Education Noteon 05-27-2023 ED Patient Education Note Orthopedics Knee Sprain, Adult A knee sprain is a stretch or tear in a knee ligament. Knee ligaments are tissues that connect bones in the knee to each other. What are the causes? This condition often results from: ? A fall. ? An injury to the knee. What are the signs or symptoms? Symptoms of this condition include: ? Trouble straightening or bending the leg. ? Swelling in the knee. ? Bruising around the knee. ? Tenderness or pain in the knee. ? Muscle spasms around the knee. How is this diagnosed? This condition may be diagnosed based on: ? A physical exam. ? A history of what happened just before you started to have symptoms. ? Tests, including: ? An X-ray. This may be done to make sure no bones are broken. ? An MRI. This may be done to check if the ligament is torn. ? Stress testing of the knee. This may be done to check ligament damage. How is this treated? Treatment for this condition may involve: ? Keeping the knee still (immobilized) with a cast, brace, or splint. ? Applying ice to the knee. This helps with pain and swelling. ? Raising (elevating) the knee above the level of your heart when you are resting. This helps with pain and swelling. ? Taking medicine for pain. ? Doing exercises to prevent or limit permanent weakness or stiffness in your knee. ? Having surgery to reconnect the ligament to the bone or to reconstruct it. This may be needed if the ligament is completely torn. Follow these instructions at home: If you have a splint or brace: ? Wear it as told by your health care provider. Remove it only as told by your health care provider. ? Check the skin around it every day. Tell your health care provider about any concerns. ? Loosen it if your toes tingle, become numb, or turn cold and blue. ? Keep it clean and dry. If you have a cast: ? Do not stick anything inside it to scratch your skin. Doing that increases your risk of infection. ? Check the skin around it every day. Tell your health care provider about any concerns. ? You may put lotion on dry skin around the edges of the cast. Do not put lotion on the skin underneath the cast. ? Keep it clean and dry. Bathing If you have a splint, brace, or cast that is not waterproof: ? Do not let it get wet. ? Cover it with a watertight covering when you take a bath or a shower. Managing pain, stiffness, and swelling ? If directed, put ice on the injured area. To do this: ? If you have a removable splint or brace, remove it as told by your health care provider. ? Put ice in a plastic bag. ? Place a towel between your skin and the bag or between your cast and the bag. ? Leave the ice on for 20 minutes, 2?3 times a day. ? Move your toes often to reduce stiffness and swelling. ? Elevate the injured area above the level of your heart while you are sitting or lying down. General instructions ? Take eglp-opv-kffmqrt and prescription medicines only as told by your health care provider. ? Do not use any products that contain nicotine or tobacco, such as cigarettes, e-cigarettes, and chewing tobacco. These can delay healing. If you need help quitting, ask your health care provider. ? Do exercises as told by your health care provider. ? Keep all follow-up visits as told by your health care provider. This is important. Contact a health care provider if: ? You have pain that gets worse. ? The cast, brace, or splint does not fit right. ? The cast, brace, or splint gets damaged. Get help right away if: ? You cannot use your injured knee to support any of your body weight (cannot bear weight). ? You cannot move the injured joint. ? You cannot walk more than a few steps without pain or without your knee buckling. ? You have significant pain, swelling, or numbness in the leg below the cast, brace, or splint. ? Your foot or toes are numb, cold, or blue after loosening your splint or brace. Summary ? A knee sprain is a stretch or tear in a knee ligament that usually occurs as the result of a fall or injury. ? Treatment may involve immobilizing the knee with a cast, splint, or brace and then doing exercises. ? If the ligament is completely torn, it may require surgery to repair or replace the injured ligament. This information is not intended to replace advice given to you by your health care provider. Make sure you discuss any questions you have with your health care provider. Document Revised: 07/06/2022 Document Reviewed: 02/16/2020 [employer] Patient Education ? 2022 [employer] [facility] ED Patient Summaryon 024 ED Patient Summary [place] [id number] Patient Discharge Instructions Person Information Name: MAURY COLLAZO Age: 22 Years Arrival Date: 05/27/2023 11:15:44 Discharge Diagnosis: Knee sprain Primary Care Physician: Bella Camara MD Provider Information Primary Provider: Brielle Varma, Michael Panchal [employer] Processor:Pola Purcell PA-C The exam and treatment you received in the Emergency Department were for an urgent problem and are not intended as complete care. It is important that you follow up with a doctor, nurse practitioner, or physician?s financial sales assistant for ongoing care. If your symptoms become worse or you do not improve as expected and you are unable to reach your usual health care provider, you should return to the Emergency Department. We are available 24 hours a day. MAURY COLLAZO has been given the following list of patient education materials, prescriptions and follow-up instructions: Follow-up Instructions: With: Address: When: [place] [address] [employer] (1) In 3 days 05/30/2023 In the event that this physician does not participate in your insurance network, please consult with your insurance company to find a nearby participating provider. Patient Education Materials: Knee Sprain, Adult A MESSAGE TO ALL PATIENTS REGARDING OPIOIDS PRESCRIPTION OPIOIDS: WHAT YOU NEED TO KNOW Prescription opioids can be used to help relieve nrbnulek-sp-rlrkyh pain and are often prescribed following a surgery or injury, or for certain health conditions. These medications can be an important part of the treatment but also come with serious risks. It is important to work with your healthcare provider to make sure you are getting the safest, most effective care. WHAT ARE THE RISKS AND SIDE EFFECTS OF OPIOID USE? Prescription opioids carry serious risks of addiction and overdose, especially with prolonged use. An opioid overdose, often marked by slowed breathing, can cause sudden . The use of prescription opioids can have a number of side effects as well, even when taken as directed: ? Tolerance?meaning you might need to take more of the medication for the same pain relief ? Physical dependence?meaning you have symptoms of withdrawal when a medication is stopped ? Increased sensitivity to pain ? Constipation ? Nausea, vomiting, and dry mouth ? Sleepiness and dizziness ? Confusion ? Depression ? Low levels of testosterone that can result in lower sex drive, energy, and strength ? Itching and sweating RISKS ARE GREATER WITH: ? History of drug misuse, substance use disorder, or overdose ? Mental health conditions (such as depression or anxiety) ? Sleep apnea ? Older age (65 years and older) ? Avoid alcohol while taking prescription opioids. Also, unless specifically advised by your health care provider, medications to avoid include: ? Benzodiazepines (such as Xanax or Valium) ? Muscle relaxants (such as Soma or Flexeril) ? Hypnotics (such as Ambien or Lunesta) ? Other prescription opioids KNOW YOUR OPTIONS Talk to your health care provider about ways to manage your pain that don?t involve prescription opioids. Some of these options may actually work better and have fewer risks and side effects. Options may include: ? Pain relievers such as acetaminophen, ibuprofen, and naproxen ? Some medication that are also used for depression or seizures ? Physical therapy and exercise ? Cognitive behavioral therapy, a psychological, goal-directed approach, in which patients learn how to modify physical, behavioral, and emotional triggers of pain and stress. IF YOU ARE PRESCRIBED OPIOIDS FOR PAIN: ? Never take opioids in greater amounts or more often than prescribed. ? Follow up with your primary health care provider. o Work together to create a plan on how to manage your pain. o Talk about ways to help manage your pain that don?t involve prescription opioids. o Talk about any and all concerns and side effects. ? Help prevent misuse and abuse o Never sell or share prescription opioids. o Never use another person?s prescription opioids. ? Store prescription opioids in a secure place and out of reach of others (this may include visitors, children, friends, and family). ? Safely dispose of unused prescription opioids: Find your community drug take-back program or your pharmacy mail-back program, or flush them down the toilet, following guidance from the Food and Drug Administration (www.fda.gov/Drugs/Re sourcesForYou). ? Visit www.cdc.gov/drugoverd ose to learn about the risks of opioids abuse and overdose. ? If you believe you may be struggling with addiction, tell your health student career development specialist and ask for guidance or call SAMHSA?S National Helpline at 9-790-904-HELP. v Source: US Department of Health (more content not included)... [facility] XR Knee Complete 4+ Views Alissa freedman 05-27-2023 XR Knee Complete 4+ Views Right Exam Date/Time: 05/27/2023 11:41 EST Reason for Exam: Pain, Traumatic Report IMPRESSION: NEGATIVE RIGHT KNEE. CLINICAL HISTORY: Pain, Traumatic COMPARISON: NONE. FINDINGS: 4 views of the right knee demonstrate no evidence of a fracture, dislocation, bone or joint abnormality. Ordering Provider: Pola Purcell FINAL REPORT Dictated: 05/27/2023 11:52 am SignKalin rivers MD Signed (Electronic Signature): 05/27/2023 11:52 am Signed by: SignKalin rivers MD Transcribed by: RYAN Technologist: [place] Technical Comments Radiation Dose: Ka,r in mGy = na DAP = na [facility] XR Hip - right 3 [facility] Result: AP pelvis bilateral hip and frog view of the right hip taken in the office today which do not demonstrate any congenital abnormalities with a femoral head or acetabulum no evidence of acute fracture or bony tumor seen. [facility] Study observation (narrative) [facility] XR Lumbar spine 4 [facility] Result: AP lateral and oblique of the lumbar spine taken in the office which he end demonstrates no change in her thoracolumbar scoliosis she does have noted Schmorl nodes multiple discs and developing some early facet hypertrophy in the lumbar spine [facility] Study observation (narrative) [facility] XR Chest Single Viewon 11-11 XR Chest Single View Exam Date/Time: 11/10/2022 17:10 EDT Reason for Exam: Shortness of breath (SOB) Report IMPRESSION: NO EVIDENCE OF ACTIVE CHEST DISEASE. CLINICAL HISTORY: Shortness of breath (SOB). COMMENT: AP portable. The heart is normal in size. The mediastinum is unremarkable. The lungs appear clear. No infiltration nor pleural effusion is evident. There is a nodular density projecting on each lung base, consistent with the patient's nipples. There is thoracic dextroscoliosis. Ordering Provider: Michael Hannah FINAL REPORT Dictated: 11/11/2022 7:45 am Cali Rabago M.D. Signed (Electronic Signature): 11/11/2022 7:45 am Signed by: Cali Rabago M.D. Transcribed by: RYAN Technologist: [place] Technical Comments Radiation Dose: Ka,r in mGy = na DAP = na [facility] Auto Diffon 11-10-2022 Basophils/100 WBC (Bld) 0.5 % Normal 0.0-2.0 [facility] Comment on above: Order Comment: Order Added by Discern Expert. Performed By: #### 2 [id number], [id number], [id number], 8803677, 8830021, 56504664, 0747853, 0312939 ####[place] [address] [place] [address] Basophils/Leukocytes Auto (Bld) [Pure # fraction] 0.0 E9/L Normal 0.0-0.2 [facility] Comment on above: Order Comment: Order Added by Discern Expert. Performed By: #### 2 694869, 7664247, 73253206, 8845094, 1600410, 74300772, 6824993, 1830196 ####[place] [address] [place] [address] Eosinophils/100 WBC (Bld) 1.0 % Normal 0.0-8.0 [facility] Comment on above: Order Comment: Order Added by Discern Expert. Performed By: #### 2 281177, 4965161, 85529313, 0048326, 0787410, 59798246, 3167073, 2991385 ####[place] [address] [place] [address] Eosinophils/Leukocytes Auto (Bld) [Pure # fraction] 0.1 E9/L Normal 0.0-0.5 [facility] Comment on above: Order Comment: Order Added by Discern Expert. Performed By: #### 2 234177, 1932997, 14353489, 4918744, 4109022, 02907520, 5312840, 2117076 ####[facility] [address] [place] [address] Lymphocytes/100 WBC (Bld) 26.5 % Normal 14.0-50.0 [facility] Comment on above: Order Comment: Order Added by Discern Expert. Performed By: #### 2 792860, 0900518, 25074169, 2398931, 9821978, 61576847, 7623840, 6845818 ####[facility] [address] [place] [address] Lymphocytes/Leukocytes Auto (Bld) [Pure # fraction] 2.3 E9/L Normal 1.0-4.0 [facility] Comment on above: Order Comment: Order Added by Discern Expert. Performed By: #### 2 129511, 0521670, 50990777, 5737559, 8049820, 24971200, 6003258, 8968220 ####[facility] [address] [place] [address] Monocytes/100 WBC (Bld) 5.2 % Normal 4.0-14.0 [facility] Comment on above: Order Comment: Order Added by Discern Expert. Performed By: #### 2 554930, 0913116, 57074804, 1251527, 4707270, 55276957, 5261487, 1458953 ####[facility] [address] [place] [address] Monocytes/Leukocytes Auto (Bld) [Pure # fraction] 0.4 E9/L Normal 0.2-1.0 [facility] Comment on above: Order Comment: Order Added by Bertin Expert. Performed By: #### 2 217112, 8306278, 12096283, 4449544, 2042594, 54597557, 4829318, 7743330 ####[place] [address] [place] [address] Neutrophils/100 WBC (Bld) 66.8 % Normal 36.0-75.0 [facility] Comment on above: Order Comment: Order Added by Bertin Expert. Performed By: #### 2 296539, 2943505, 94802065, 9202963, 0013726, 80941858, 5168340, 7516674 ####[facility] [address] [place] [address] Neutrophils/Leukocytes Auto (Bld) [Pure # fraction] 5.7 E9/L Normal 2.0-7.5 [facility] Comment on above: Order Comment: Order Added by Bertin Expert. Performed By: #### 2 608703, 5444599, 52469306, 9630493, 4416658, 51203138, 3878103, 5323796 ####[facility] [address] [place] [address] BMPon 11-10-2022 Creatinine [Mass/Vol] 0.8 mg/dL Normal 0.5-1.3 [facility] Comment on above: Performed By: #### 2 466471, 6332068, 27982825, 6523047, 4693697, 86352570, 3021740, 2566441 ####[facility] [address] [place] [address] Urea nitrogen [Mass/Vol] 13 mg/dL Normal 5-21 [facility] Comment on above: Performed By: #### 2 192462, 3784224, 77706190, 9344285, 6288377, 77682509, 4889026, 4455796 ####[facility] [address] [place] [address] Urea nitrogen/Creatinine [Mass ratio] 16 No Units Normal 10-20 [facility] Comment on above: Performed By: #### 2 138892, 9685160, 55960077, 1433288, 4820797, 80082409, 3745562, 4932718 ####[facility] [address] [place] [address] Anion gap [Moles/Vol] 13 mmol/L Normal 6-16 [facility] Comment on above: Performed By: #### 2 282122, 3448534, 07095929, 2559035, 8452062, 28251002, 2024591, 9898999 ####[facility] [address] [place] [address] Calcium [Mass/Vol] 9.7 mg/dL Normal 8.9-11.1 [facility] Comment on above: Performed By: #### 2 862971, 2469502, 25792490, 2301936, 0970380, 86196704, 3406796, 3237312 ####[facility] [address] [place] [address] Chloride [Moles/Vol] 105 mmol/L Normal 101-111 [facility] Comment on above: Performed By: #### 2 210209, 5362405, 50871462, 7412695, 6267955, 33398320, 2827040, 0166261 ####[facility] [address] [place] [address] CO2 [Moles/Vol] 24 mmol/L Normal 21-31 [facility] Comment on above: Performed By: #### 2 627507, 2631509, 72672718, 7043364, 8834458, 45306296, 3672804, 1313703 ####[facility] [address] [place] [address] Glucose [Mass/Vol] 96 mg/dL Normal 55-199 [facility] Comment on above: Result Comment: If t his glucose result represents a fasting glucose, interpretation should refer to the following reference range: 55-99 mg/dL Performed By: #### 2 787304, 5926670, 99605643, 1167721, 6471515, 07594700, 0539112, 0356376 ####[facility] [address] [place] [address] Potassium [Moles/Vol] 3.8 mmol/L Normal 3.5-5.3 [facility] Comment on above: Performed By: #### 2 174466, 0311802, 96429085, 0694459, 9541412, 05922954, 3504111, 2087096 ####[facility] [address] [place] [address] Sodium [Moles/Vol] 138 mmol/L Normal 135-145 [facility] Comment on above: Performed By: #### 2 548614, 7788754, 45977932, 3019158, 7312572, 43595282, 7616566, 7146262 ####[facility] [address] [place] [address] CBC w/ Auto Diffon 3 Erythrocyte distribution width (RBC) [Ratio] 13.5 % Normal 10.9-14.2 [facility] Comment on above: Performed By: #### 2 633536, 1378141, 95069147, 6674837, 6907566, 58215502, 4120351, 8918330 ####[address] [place] [address] Hematocrit (Bld) [Volume fraction] 40.4 % Normal 34.0-46.0 [facility] Comment on above: Performed By: #### 2 333626, 0476153, 27179886, 5049878, 9688286, 99692039, 4099799, 8124824 ####[address] [address] Hemoglobin (Bld) [Mass/Vol] 13.7 g/dL Normal 12.0-16.0 [facility] Comment on above: Performed By: #### 2 560379, 7707100, 86461095, 0873148, 5941993, 00622934, 9873471, 3104039 ####[address] [address] MCH (RBC) [Entitic mass] 30.0 pg Normal 27.0-34.0 [facility] Comment on above: Performed By: #### 2 021409, 2949346, 40220900, 6334763, 1303301, 76964482, 8553960, 1944505 ####[address] [address] MCHC (RBC) [Mass/Vol] 33.9 g/dL Normal 31.4-36.0 [facility] Comment on above: Performed By: #### 2 865303, 3131251, 15916581, 6938355, 9774846, 79248346, 2368197, 4680649 ####[address] [address] MCV (RBC) [Entitic vol] 88.6 fL Normal 80.0-100.0 [facility] Comment on above: Performed By: #### 2 278519, 2501951, 75960870, 0530120, 5404336, 71016397, 0013774, 0110340 ####[facility] [address] [place] [address] Platelet mean volume (Bld) [Entitic vol] 10.8 fL Normal 6.4-10.8 [facility] Comment on above: Performed By: #### 2 245616, 8692162, 30425131, 3020289, 5306566, 42111310, 8064479, 4789962 ####[facility] [address] [place] [address] Platelets (Bld) [#/Vol] 192.0 E9/L Normal 150.0-500.0 [facility] Comment on above: Performed By: #### 2 828232, 1731663, 27837888, 1760780, 1142569, 56120976, 6723244, 4679216 ####[address] [place] [address] RBC (Bld) [#/Vol] 4.6 E12/L Normal 4.3-5.9 [facility] Comment on above: Performed By: #### 2 598319, 6172012, 98771561, 2902617, 6066141, 29883930, 8805418, 8618315 ####[address] [place] [address] WBC corrected for nucl RBC Auto (Bld) [#/Vol] 8.5 E9/L Normal 4.0-11.0 [facility] Comment on above: Result Comment: Slid e reviewed by FREDRICK. Performed By: #### 2 854298, 2168067, 48496392, 7250118, 9080956, 22879151, 6152954, 1918081 ####[address] [address] CHEMISTRYOrdered By: SYSTEM SYSTEM on 11-10-2022 Albumin [Mass/Vol] 4.6 g/dL Normal 3.3 - 5.0 gm/dL [facility] Remisol Albumin/Globulin [Mass ratio] 1.5 {ratio} Normal 1.1 - 2.2 [facility] Remisol ALP [Catalytic activity/Vol] 41 [iU]/d Normal 21 - 98 Int._Unit/L [facility] Remisol ALT No additional P-5'-P [Catalytic activity/Vol] 17 [iU]/d Normal 6 - 46 Int._Unit/L [facility]isol Anion gap [Moles/Vol] 13 mmol/L Normal 6 - 16 mEq/L [facility] Remisol AST [Catalytic activity/Vol] 17 [iU]/d Normal 5 - 43 Int._Unit/L [facility] Bilirubin [Mass/Vol] 0.5 mg/dL Normal 0.0 - 1 .1 mg/dL [facility]isol Bilirubin.direct [Mass/Vol] mg/dL Normal 0.1 - 0.4 mg/dL [facility]isol Bilirubin.indirect [Mass or moles/Vol] Unable to Calculate mg/dL Invalid Interpretation Code 0.1 - 0.9 mg/dL [facility] Calcium [Mass/Vol] 9.7 mg/dL Normal 8.9 - 11. 1 mg/dL [facility] Chloride [Moles/Vol] 105 mmol/L Normal 101 - 1 11 mmol/L [facility] CO2 [Moles/Vol] 24 mmol/L Normal 21 - 31 mmol/L [facility] Creatinine [Mass/Vol] 0.8 mg/dL Normal 0.5 - 1.3 mg/dL [facility] GFR/1.73 sq M.predicted among non-blacks MDRD (S/P/Bld) [Vol rate/Area] 105 mL/min/1.73 m2 Normal >=59mL/min/1 .73 m2 [facility] Chem S Globulin (S) [Mass/Vol] 3.1 g/dL Normal 1.4 - 4.0 gm/dL [facility] Glucose [Mass/Vol] 96 mg/dL Normal 55 - 199 mg/dL [facility] Lipase [Catalytic activity/Vol] 28 U/L Normal 13 - 58 unit/L [facility] Potassium [Moles/Vol] 3.8 mmol/L Normal 3.5 - 5.3 mmol/L [facility] Protein [Mass/Vol] 7.7 g/dL Normal 6.0 - 7.8 gm/dL [facility] Sodium [Moles/Vol] 138 mmol/L Normal 135 - 145 mmol/L [facility] Remisol Troponin I.cardiac [Mass/Vol] pg/mL Low 10.10 - 27.10 pg/mL [facility] Remisol Urea nitrogen [Mass/Vol] 13 mg/dL Normal 5 - 21 mg/dL [facility] Remisol Urea nitrogen/Creatinine [Mass ratio] 16 mg/mg Normal 10 - 20 [facility] Remisol COAGULATIONOrdered By: Aaron Wren on 11-10-2022 Fibrin D-dimer FEU (PPP) [Mass/Vol] ng/mL FEU Low 215 - 500 ng/mL FEU [facility] Auto Coag Consent for Treatmenton Consent for Treatment [id number] .00CD:127 Normal [facility] D-Dimeron 11-10-2022 Fibrin D-dimer FEU (PPP) [Mass/Vol] <215 Low 215-500 [facility] Comment on above: Result Comment: This assay is intended for use as an aid in the diagnosis of DVT or PE. These conditions cannot be excluded with certainty solely on the basis of a D-dimer concentration being within the reference range This D-Dimer assay may be used in conjunction with a non-high clinical pretest probability assessment to exclude deep-vein thrombosis(DVT). For exclusion of venous thrombosis or pulmonary embolism the analyte D-Dimer should not be used as an aid in patients with: Therapeutic dose anticoagulant therapy for >24 hours Fibrinolytic therapy within previous 7 days Trauma or surgery within previous 4 weeks Disseminated malignacies Aortic aneurysm Sepsis, severe infections, pneumonia, severe skin infections Liver cirrhosis Performed By: #### 2 624451, 9572256, 29212073, 0869215, 3640642, 24284156, 7119700, 1430246 ####[facility] [address] [place] [address] Discharge Instructionson Discharge Instructions [id number] 1.00CD:127 Normal [facility] ED Clinical Summaryon 2022 ED Clinical Summary [address] [address] ED Clinical Summary Person Information Name: MAURY COLLAZO[place] Age: 22 Years : 2000 Sex: Female Language: Israeli PCP: Bella Camara MD Marital Status: Single Visit Id: Visit Reason: Abdominal pain; Shortness of breath; LOWER LEFT ABDOMINAL PAIN AND MILD SOB Speciality: Acuity: 3 Enc Type: Emergency Med Service: Emergency Arrival: 11/10/2022 15:56:06 Discharge: 11/10/2022 19:05:19 LOS: 000 03:09 Checkin: 11/10/2022 15:56:06 Checkout: 11/10/2022 19:05:19 Dispo Type: Home (Routine DC) EVENTS: Event Name Event Status Request Date/Time Start Date/Time Complete Date/Time Arrive Complete 11/10/2022 15:56:06 11/10/2022 15:56:06 11/10/2022 15:56:06 Document Home Meds Request 11/10/2022 15:56:06 Triage Complete 11/10/2022 15:56:06 11/10/2022 16:10:45 11/10/2022 16:10:45 Registration Complete 11/10/2022 16:07:56 11/10/2022 16:07:56 11/10/2022 16:07:56 Reg Complete Request 11/10/2022 16:07:56 Reg Bed Request Complete 11/10/2022 16:07:56 11/10/2022 16:07:56 11/10/2022 16:07:56 EKG Complete 11/10/2022 16:09:34 11/10/2022 16:13:37 Pending Labs Complete 11/10/2022 16:15:38 11/10/2022 18:08:22 Lab Complete 11/10/2022 16:15:39 11/10/2022 18:08:22 Urine Collect Complete 11/10/2022 16:15:39 11/10/2022 18:08:22 X-Ray Complete 11/10/2022 16:16:09 11/10/2022 16:46:23 11/10/2022 17:10:19 Bed Assign Complete 11/10/2022 16:39:58 11/10/2022 16:39:58 11/10/2022 16:39:58 Dr Exam Complete 11/10/2022 16:39:58 11/10/2022 17:36:11 11/10/2022 17:36:11 RN Exam Complete 11/10/2022 16:39:58 11/10/2022 17:10:14 11/10/2022 17:10:14 Pending Labs Complete 11/10/2022 16:53:42 11/10/2022 16:53:42 11/10/2022 17:18:49 Lab Complete 11/10/2022 16:53:42 11/10/2022 16:53:42 11/10/2022 17:18:49 Pending Labs Complete 11/10/2022 16:56:28 11/10/2022 16:56:28 11/10/2022 16:56:28 Wet Read Request 11/10/2022 17:10:19 Pending Labs Complete 11/10/2022 17:20:24 11/10/2022 17:20:24 11/10/2022 17:20:31 Lab Complete 11/10/2022 17:20:24 11/10/2022 17:20:24 11/10/2022 17:20:31 Registration Request 11/10/2022 17:36:11 Pending Labs Complete 11/10/2022 17:44:07 11/10/2022 17:58:54 Lab Complete 11/10/2022 17:44:07 11/10/2022 17:58:54 Meds Admin Complete 11/10/2022 17:44:07 11/10/2022 17:54:46 Urine Collect Complete 11/10/2022 17:44:07 11/10/2022 17:58:54 Meds Admin Complete 11/10/2022 17:47:58 11/10/2022 17:54:46 Pending Labs Complete 11/10/2022 17:52:16 11/10/2022 17:52:16 11/10/2022 17:58:01 Lab Complete 11/10/2022 17:52:16 11/10/2022 17:52:16 11/10/2022 17:58:01 Meds Admin Complete 11/10/2022 18:33:56 11/10/2022 18:39:42 Discharge Complete 11/10/2022 18:55:18 11/10/2022 19:05:26 11/10/2022 19:05:26 Transfer Complete 11/10/2022 19:05:26 11/10/2022 19:05:26 11/10/2022 19:05:26 ADDRESS: [address] [id number] [facility] DOC NOTES: MEDICAL INFORMATION: Prescriptions Given: New Medications Printed Prescriptions promethazine (promethazine 25 mg Tab) 1 Tablets By Mouth every 6 hours as needed as needed for nausea/vomiting. Refills: 0. sucralfate (sucralfate 1 g Tab) 1 Tablets By Mouth 4 times a day for 7 Days. Refills: 0. PATIENT EDUCATION INFORMATION: Instructions: Shortness of Breath, Adult; Abdominal Pain, Adult Follow up: With: Address: When: Bella Ho[place] [address] [facility] () In 3 days 11/13/2022 Comments: Retrurn to the emergency room if your shortness of breath recurs, abdominal pain recurs or any new symptoms. DIAGNOSIS: 1:Abdominal pain; 2:Shortness of breath Normal [facility] ED Note-Physicianon 11-11-19 ED Note-Physician Basic Information Time Seen: Michael Hannah M.D. 11/10/2022 17:36 Chief Complaint patient c/o SOB and LUQ abdominal pain with nausea that started this aM History of Present Illness The patient is a 22-year-old female who presented to the emergency room with abdominal pain and shortness of breath. The patient states after lunch she just took a bite and she felt like she could not catch her breath. She started having pain and points on the left upper quadrant. The patient describes the pain as sharp/stabbing. She rates a 7 out of 10. She reports nausea but no vomiting. The patient states she feels like she has to take deep breaths. She denies any chest pain. She denies diarrhea. Her last bowel movement was this morning. Denies any black or bloody stool. The patient any cough. She denies any sore throat. Denies any fever denies any chills. The patient denies any chest pain. The patient is on control pills. She denies any burning with urination. She denies blood in urine. The patient denies any other associated symptoms. Review of Systems Additional ROS info: Except as noted in the above Review of Systems and in the History of Present Illness all other systems have been reviewed and are negative or noncontributory. Physical Exam Vitals & Measurements T: 36.6 ?C(Oral) HR: 57(Monitored) RR: 16 BP: 119/80 SpO2: 100% HT: 175.26 cm WT: 64.5 kg BMI: 21 General: alert, no acute distress Skin: warm, dry Head: no trauma, normocephalic Neck: Trachea midline Eye: normal conjunctiva, sclera clear Cardiovascular: regular rate and rhythm Respiratory: Lungs CTA, respirations non labored, breath sounds equal Gastrointestinal: soft, non distended, mild tenderness end of the abdomen, no guarding Extremities: no deformity, no trauma Neurological: Alert and oriented, speech normal, no focal neuro deficits Psychiatric: cooperative, affect anxious, Medical Decision Making MEDICAL DECISION MAKING Number and Complexity of Problems Differential Diagnosis: [] [facility] Data External documents reviewed: [] My EKG interpretation: [] My CT interpretation: [] My X-ray interpretation: [] My Ultrasound interpretation: [] Decision rules/scores evaluated: [] Discussed with: [] Treatment and Disposition ED Course: Patient presented with abdominal pain nausea and shortness of breath. Unclear etiology of her abdominal pain. Possible gastritis/peptic ulcer disease. Her pain improved after the GI cocktail. Possible her shortness of breath is due to anxiety. EKG shows no acute ischemic changes. Blood work reviewed unremarkable. Troponin is negative. Less likely PE. D-dimer is negative. The patient was given IV fluid pain medication Pepcid and antiemetic and her pain and nausea improved. The patient feels comfortable going home. We will discharge patient home with prescription for Phenergan and sucralfate. She is instructed to return to the emergency room if her abdominal pain recurs, shortness of breath recurs or any new symptoms. Shared decision making: [] Code status: [] Assessment/Plan 1. Abdominal pain (R10.9: Unspecified abdominal pain) 2. Shortness of breath (R06.02: Shortness of breath) Orders: Al hydroxide/Mg hydroxide/simethicone , 30 mL, Susp-Oral, Oral, Once, Stop date 11/10/22 18:33:00 EDT, STAT, Start date 11/10/22 18:33:00 EDT atropine/hyoscyamine/ PB/scopolamine, 10 mL, Elixir, Oral, Once, Stop date 11/10/22 18:33:00 EDT, STAT, Start date 11/10/22 18:33:00 EDT famotidine, 20 mg = 2 mL, Soln-IV, IV Push, Once, Stop date 11/10/22 17:47:00 EDT, STAT, Start date 11/10/22 17:47:00 EDT, 11/10/22 17:47:00 EDT ketorolac, 30 mg = 1 mL, Injection, IV Push, Once, Stop date 11/10/22 17:42:00 EDT, STAT, Start date 11/10/22 17:42:00 EDT, 11/10/22 17:42:00 EDT promethazine, 25 mg = 1 tab(s), Oral, q6hr, PRN as needed for nausea/vomiting, # 12 tab(s), Refills(s) 0 promethazine, 12.5 mg = 0.5 mL, Injection, IV Push, Once, Stop date 11/10/22 17:42:00 EDT, STAT, Start date 11/10/22 17:42:00 EDT, 11/10/22 17:42:00 EDT sucralfate, 1 gm = 1 tab(s), Oral, QID, X 7 day(s), # 28 tab(s), Refills(s) 0 Automated Diff Basic Metabolic Panel CBC w/ Auto Diff D-Dimer eGFR Extra Blue Tube Extra SST Tube Hepatic Function Panel Lipase Level Troponin 0 Hr. U Beta Hcg Qual UA With Cult Reflex XR Chest Single View Medications Administered Given Al hydroxide/Mg hydroxide/simethicone 200 mg-200 mg-20 mg/5 mL oral suspension, 30 mL, Oral Elixir, 10 mL, Oral famotidine 10 mg/mL IV Yulisa, 20 mg, IV Push ketorolac 30 mg/mL Inj 1 mL, 30 mg, IV Push Phenergan 25 mg/mL Injection, 12.5 mg, IV Push Disposition Plan Patient Discharge Condition Stable, improved Discharge Disposition Discharged home Discharge Prescription List Prescriptions promethazine 25 mg Tab, 25 mg= 1 tab(s), Oral, q6hr, PRN sucralfate 1 g Tab, 1 gm= 1 tab(s), Oral, QID Follow-up With When Contact I (more content not included)... Normal [facility] Comment on above: Result Comment: Elec tronically Signed By: Brielle Varma, Michael Panchal\.br\Date and Time Signed: 11/10/22 18:57 EDT ED Patient Education Noteon 11-10-2022 ED Patient Education Note Gastroenterology Abdominal Pain, Adult Pain in the abdomen (abdominal pain) can be caused by many things. Often, abdominal pain is not serious and it gets better with no treatment or by being treated at home. However, sometimes abdominal pain is serious. Your health care provider will ask questions about your medical history and do a physical exam to try to determine the cause of your abdominal pain. Follow these instructions at home: Medicines ? Take mprk-dku-wifgghc and prescription medicines only as told by your health care provider. ? Do not take a laxative unless told by your health care provider. General instructions ? Watch your condition for any changes. ? Drink enough fluid to keep your urine pale yellow. ? Keep all follow-up visits as told by your health care provider. This is important. Contact a health care provider if: ? Your abdominal pain changes or gets worse. ? You are not hungry or you lose weight without trying. ? You are constipated or have diarrhea for more than 2?3 days. ? You have pain when you urinate or have a bowel movement. ? Your abdominal pain wakes you up at night. ? Your pain gets worse with meals, after eating, or with certain foods. ? You are vomiting and cannot keep anything down. ? You have a fever. ? You have blood in your urine. Get help right away if: ? Your pain does not go away as soon as your health care provider told you to expect. ? You cannot stop vomiting. ? Your pain is only in areas of the abdomen, such as the right side or the left lower portion of the abdomen. Pain on the right side could be caused by appendicitis. ? You have bloody or black stools, or stools that look like tar. ? You have severe pain, cramping, or bloating in your abdomen. ? You have signs of dehydration, such as: ? Dark urine, very little urine, or no urine. ? Cracked lips. ? Dry mouth. ? Sunken eyes. ? Sleepiness. ? Weakness. ? You have trouble breathing or chest pain. Summary ? Often, abdominal pain is not serious and it gets better with no treatment or by being treated at home. However, sometimes abdominal pain is serious. ? Watch your condition for any changes. ? Take brxj-uep-avhraay and prescription medicines only as told by your health care provider. ? Contact a health care provider if your abdominal pain changes or gets worse. ? Get help right away if you have severe pain, cramping, or bloating in your abdomen. This information is not intended to replace advice given to you by your health care provider. Make sure you discuss any questions you have with your health care provider. Document Revised: 05/17/2020 Document Reviewed: 08/07/2019 [employer] Patient Education ? 2022 [employer] Pulmonary Medicine Shortness of Breath, Adult Shortness of breath is when a person has trouble breathing or when a person feels like she or he is having trouble breathing in enough air. Shortness of breath could be a sign of a medical problem. Follow these instructions at home: Pollutants ? Do not use any products that contain nicotine or tobacco. These products include cigarettes, chewing tobacco, and vaping devices, such as e-cigarettes. This also includes cigars and pipes. If you need help quitting, ask your health care provider. ? Avoid things that can irritate your airways, including: ? Smoke. This includes campfire smoke, forest fire smoke, and secondhand smoke from tobacco products. Do not smoke or allow others to smoke in your home. ? Mold. ? Dust. ? Air pollution. ? Chemical fumes. ? Things that can give you an allergic reaction (allergens) if you have allergies. Common allergens include pollen from grasses or trees and animal dander. ? Keep your living space clean and free of mold and dust. General instructions ? Pay attention to any changes in your symptoms. ? Take sdpd-rhn-rqtpbqt and prescription medicines only as told by your health care provider. This includes oxygen therapy and inhaled medicines. ? Rest as needed. ? Return to your normal activities as told by your health care provider. Ask your health care provider what activities are safe for you. ? Keep all follow-up visits. This is important. Contact a health care provider if: ? Your condition does not improve as soon as expected. ? You have a hard time doing your normal activities, even after you rest. ? You have new symptoms. ? You cannot walk up stairs or exercise the way that you normally do. Get help right away if: ? Your shortness of breath gets worse. ? You have shortness of breath when you are resting. ? You feel light-headed or you faint. ? You have a cough that is not controlled with medicines. ? You cough up blood. ? You have pain with breathing. ? You have pain in your chest, arms, shoulders, or abdomen. ? You have a fever. These symptoms may be an emergency. Get help right away. Call 911. ? D (more content not included)... Normal [facility] ED Patient Summaryon 023 ED Patient Summary [place] [address] Patient Discharge Instructions Person Information Name: MAURY COLLAZO Age: 22 Years Arrival Date: 11/10/2022 15:56:06 Discharge Diagnosis: 1:Abdominal pain; 2:Shortness of breath Primary Care Physician: Hoa JASSO, Bella Shaw Provider Information Primary Provider: Michael Hannah M.D. [employer]:None The exam and treatment you received in the Emergency Department were for an urgent problem and are not intended as complete care. It is important that you follow up with a doctor, nurse practitioner, or physician?s financial sales assistant for ongoing care. If your symptoms become worse or you do not improve as expected and you are unable to reach your usual health care provider, you should return to the Emergency Department. We are available 24 hours a day. MAURY COLLAZO has been given the following list of patient education materials, prescriptions and follow-up instructions: Follow-up Instructions: With: Address: When: [place] [place] [address] [employer] (1) In 3 days 11/13/2022 Comments: Retrurn to the emergency room if your shortness of breath recurs, abdominal pain recurs or any new symptoms. In the event that this physician does not participate in your insurance network, please consult with your insurance company to find a nearby participating provider. Patient Education Materials: Shortness of Breath, Adult; Abdominal Pain, Adult A MESSAGE TO ALL PATIENTS REGARDING OPIOIDS PRESCRIPTION OPIOIDS: WHAT YOU NEED TO KNOW Prescription opioids can be used to help relieve vkinyrkc-wf-quruqt pain and are often prescribed following a surgery or injury, or for certain health conditions. These medications can be an important part of the treatment but also come with serious risks. It is important to work with your healthcare provider to make sure you are getting the safest, most effective care. WHAT ARE THE RISKS AND SIDE EFFECTS OF OPIOID USE? Prescription opioids carry serious risks of addiction and overdose, especially with prolonged use. An opioid overdose, often marked by slowed breathing, can cause sudden . The use of prescription opioids can have a number of side effects as well, even when taken as directed: ? Tolerance?meaning you might need to take more of the medication for the same pain relief ? Physical dependence?meaning you have symptoms of withdrawal when a medication is stopped ? Increased sensitivity to pain ? Constipation ? Nausea, vomiting, and dry mouth ? Sleepiness and dizziness ? Confusion ? Depression ? Low levels of testosterone that can result in lower sex drive, energy, and strength ? Itching and sweating RISKS ARE GREATER WITH: ? History of drug misuse, substance use disorder, or overdose ? Mental health conditions (such as depression or anxiety) ? Sleep apnea ? Older age (65 years and older) ? Avoid alcohol while taking prescription opioids. Also, unless specifically advised by your health care provider, medications to avoid include: ? Benzodiazepines (such as Xanax or Valium) ? Muscle relaxants (such as Soma or Flexeril) ? Hypnotics (such as Ambien or Lunesta) ? Other prescription opioids KNOW YOUR OPTIONS Talk to your health care provider about ways to manage your pain that don?t involve prescription opioids. Some of these options may actually work better and have fewer risks and side effects. Options may include: ? Pain relievers such as acetaminophen, ibuprofen, and naproxen ? Some medication that are also used for depression or seizures ? Physical therapy and exercise ? Cognitive behavioral therapy, a psychological, goal-directed approach, in which patients learn how to modify physical, behavioral, and emotional triggers of pain and stress. IF YOU ARE PRESCRIBED OPIOIDS FOR PAIN: ? Never take opioids in greater amounts or more often than prescribed. ? Follow up with your primary health care provider. o Work together to create a plan on how to manage your pain. o Talk about ways to help manage your pain that don?t involve prescription opioids. o Talk about any and all concerns and side effects. ? Help prevent misuse and abuse o Never sell or share prescription opioids. o Never use another person?s prescription opioids. ? Store prescription opioids in a secure place and out of reach of others (this may include visitors, children, friends, and family). ? Safely dispose of unused prescription opioids: Find your community drug take-back program or your pharmacy mail-back program, or flush them down the toilet, following guidance from the Food and Drug Administration (www.fda.gov/Drugs/Re sourcesForYou). ? Visit www.cdc.gov/drugoverd ose to learn about the risks of opioids abuse and overdose. ? If you believe you may be struggling wi (more content not included)... Normal [facility] HEMATOLOGYOrdered By: SYSTEM SYSTEM on 11-10-2022 Basophils/100 WBC (Bld) 0.5 % Normal 0.0 - 2.0 % [facility] HemeAutoSS Basophils/Leukocytes Auto (Bld) [Pure # fraction] 0.0 E9/L Normal 0.0 - 0.2 E9/L [facility] HemeAutoSS Eosinophils/100 WBC (Bld) 1.0 % Normal 0.0 - 8.0 % [facility] HemeAutoSS Eosinophils/Leukocytes Auto (Bld) [Pure # fraction] 0.1 E9/L Normal 0.0 - 0.5 E9/L [facility] HemeAutoSS Lymphocytes/100 WBC (Bld) 26.5 % Normal 14.0 - 50.0 % [facility] HemeAutoSS Lymphocytes/Leukocytes Auto (Bld) [Pure # fraction] 2.3 E9/L Normal 1.0 - 4.0 E9/L [facility] HemeAutoSS Monocytes/100 WBC (Bld) 5.2 % Normal 4.0 - 14.0 % [facility] HemeAutoSS Monocytes/Leukocytes Auto (Bld) [Pure # fraction] 0.4 E9/L Normal 0.2 - 1.0 E9/L [facility] HemeAutoSS Neutrophils/100 WBC (Bld) 66.8 % Normal 36.0 - 75.0 % [facility] HemeAutoSS Neutrophils/Leukocytes Auto (Bld) [Pure # fraction] 5.7 E9/L Normal 2.0 - 7.5 E9/L [facility] HemeAutoSS HEMATOLOGYOrdered By: John Omer on 11-10-2022 Erythrocyte distribution width (RBC) [Ratio] 13.5 % Normal 10.9 - 14.2 % [facility] HemeAutoSS Hematocrit (Bld) [Volume fraction] 40.4 % Normal 34.0 - 46.0 % [facility] HemeAutoSS Hemoglobin (Bld) [Mass/Vol] 13.7 g/dL Normal 12.0 - 16.0 gm/dL [facility] HemeAutoSS MCH (RBC) [Entitic mass] 30.0 pg Normal 27.0 - 34.0 pg [facility] HemeAutoSS MCHC (RBC) [Mass/Vol] 33.9 g/dL Normal 31.4 - 36.0 gm/dL [facility] HemeAutoSS MCV (RBC) [Entitic vol] 88.6 fL Normal 80.0 - 100.0 fL [facility] HemeAutoSS Platelet mean volume (Bld) [Entitic vol] 10.8 fL Normal 6.4 - 10.8 fL [facility] HemeAutoSS Platelets (Bld) [#/Vol] 192.0 E9/L Normal 150. 0 - 500.0 E9/L [facility] HemeAutoSS RBC (Bld) [#/Vol] 4.6 E12/L Normal 4.3 - 5.9 E12/L [facility] HemeAutoSS WBC corrected for nucl RBC Auto (Bld) [#/Vol] 8.5 E9/L Normal 4.0 - 11.0 E9/L [facility]eAuto[facility] Comment on above: Result Comment: Slid e reviewed by MA. [facility] Panelon 11-10-2022 Bilirubin.indirect [Mass or moles/Vol] UTC Abnormal 0.1-0.9 [facility] Comment on above: Result Comment: Resu lt verified by Discern Rule. Performed result [facility] (Unable to Calculate) was sent as an Alpha code due the inability to calculate a valid numeric value. Performed By: #### 2 715031, 4131899, 88192357, 9791756, 0490463, 31498342, 5141116, 9049116 ####[facility] [address] [place] [address] Albumin [Mass/Vol] 4.6 g/dL Normal 3.3-5.0 [facility] Comment on above: Performed By: #### 2 209932, 3354449, 49721368, 8899901, 0597151, 09819709, 3204317, 9701400 ####[place] [place] [address] Albumin/Globulin (S) [Mass conc ratio] 1.5 Normal 1.1-2.2 [facility] Comment on above: Performed By: #### 2 692846, 8443100, 43902443, 4844728, 4418780, 77310419, 5071831, 1779431 ####[address] [place] [address] ALP [Catalytic activity/Vol] 41 Int._Unit/L Normal 21-98 [facility] Comment on above: Performed By: #### 2 410221, 7905847, 07535890, 6069109, 5501954, 34484477, 0702979, 5843522 ####[facility] [address] [place] [address] ALT No additional P-5'-P [Catalytic activity/Vol] 17 Int._Unit/L Normal 6-46 [facility] Comment on above: Performed By: #### 2 672363, 6117597, 19530315, 9496903, 1452814, 04308541, 4723878, 9617599 ####[address] [place] [address] AST [Catalytic activity/Vol] 17 Int._Unit/L Normal 5-43 [facility] Comment on above: Performed By: #### 2 444180, 7381710, 51083289, 2180894, 6178360, 98881880, 2809497, 3861575 ####[facility] [address] [place] [address] Bilirubin [Mass/Vol] 0.5 mg/dL Normal 0.0-1.1 [facility] Comment on above: Performed By: #### 2 820657, 0201701, 47191790, 7964780, 6871353, 67415358, 8659661, 9513898 ####[facility] [address] [place] [address] Globulin (S) [Mass/Vol] 3.1 g/dL Normal 1.4-4.0 [facility] Comment on above: Performed By: #### 2 093778, 6025040, 84090034, 0737131, 2602572, 40431532, 1928363, 0877883 ####[facility] [address] [place] [address] Protein [Mass/Vol] 7.7 g/dL Normal 6.0-7.8 [facility] Comment on above: Performed By: #### 2 281203, 1201661, 66358999, 2641176, 0553710, 14932792, 7639935, 5855197 ####[facility] [address] [place] [address] Bilirubin.direct [Mass/Vol] mg/dL Normal 0.1-0.4 [facility] Comment on above: Performed By: #### 2 915793, 0567950, 47779153, 3844907, 1396939, 63853923, 0369793, 2315288 ####[facility] [address] [place] [address] Lipase Levelon 11-10-2022 Lipase [Catalytic activity/Vol] 28 U/L Normal 13-58 [facility] Comment on above: Performed By: #### 2 296459, 4943801, 43893738, 1399275, 5905863, 02550573, 1442460, 1173462 ####[facility] [address] [place] [address] Progress Note-Nurseon 2022 Progress Note-Nurse Patient brought back to ED 11 at this time from the waiting room Normal [facility] SEROLOGYOrdered By: Brittni choudhury on 11-10-2022 HCG.beta subunit (U) [Moles/Vol] Negative Normal [facility] Man Sero Troponin 0 Hr.on 11-10-2022 Troponin I.cardiac [Mass/Vol] ng/mL Low 10.10-27.10 [facility] Comment on above: Result Comment: The 95% CI (Confidence Interval) PPV (Positive Predictive Value) for myocardial infarction in females is 38 pg/mL, in males 51 pg/mL. The results should be used in conjunction with clinical conditions of myocardial infarction. (Access High Sensitivity Troponin I Instructions For Use, Richelle TaxJar, November 2017) Performed By: #### 2 076857, 2816317, 01828949, 4755309, 5843805, 75667936, 3458962, 9023272 ####[facility] [address] [place] [address] U BetaHcg Qualon 11-10-2022 HCG.beta subunit (U) [Moles/Vol] Negative Normal [facility] Comment on above: Performed By: #### 2 9652047 ####[facility] [address] [place] [address] UA With Cult Reflexon 2022 Bilirubin Ql (U) Negative Normal Negative [facility] Comment on above: Performed By: #### 1 2714719 ####[address] [place] [address] Clarity (U) CLEAR Normal Clear [facility] Comment on above: Performed By: #### 1 9983982 ####[address] [place] [address] Color (U) YELLOW Normal Yellow [facility] Comment on above: Performed By: #### 1 5668229 ####[facility] [address] [place] [address] Epithelial cells.squamous LM.HPF (Urine sed) [#/Area] 0-2 Normal 0-2 [facility] Comment on above: Performed By: #### 1 1923915 ####[facility] [address] [place] [address] Glucose Test strip (U) [Mass/Vol] Negative Normal Negative [facility] Comment on above: Performed By: #### 1 1862742 ####[facility] [address] [place] [address] Hemoglobin Ql (U) Negative Normal Negative [facility] Comment on above: Performed By: #### 1 8169482 ####[address] [address] Ketones (U) [Mass/Vol] Negative Normal Negative [facility] Comment on above: Performed By: #### 1 4407280 ####[facility] [address] [place] [address] [place].plasma/[place]. RBC (Bld) [Mass ratio] 0-3 Normal 0-3 [facility] Comment on above: Performed By: #### 1 8571576 ####[facility] [address] [place] [address] Nitrite Ql (U) Negative Normal Negative [facility] Comment on above: Performed By: #### 1 9682872 ####[facility] [address] [place] [address] pH (U) 6.0 [pH] Invalid Interpretation Code 5.0-9.0 [facility] Comment on above: Performed By: #### 1 7112972 ####[facility] [address] [place] [address] Protein (U) [Mass/Vol] Negative Normal Negative [facility] Comment on above: Performed By: #### 1 3074039 ####[place] [address] Specific gravity (U) [Rel density] 1.010 Invalid Interpretation Code 1.005-1.030 [facility] Comment on above: Performed By: #### 1 8624580 ####[place] [address] Type of Urine collection method Clean Catch Normal [facility] Comment on above: Performed By: #### 1 7781794 ####[place] [address] Urobilinogen Qn (U) 0.2 {Elizabeth'U}/dL Normal 0.0-1.0 [facility] Comment on above: Performed By: #### 1 5037818 ####[place] [address] WBC Auto Ql (U) Negative Normal Negative [facility] Comment on above: Performed By: #### 1 4609951 ####[place] [address] WBC LM.HPF (Urine sed) [#/Area] 0-5 Normal 0-5 [facility] Comment on above: Performed By: #### 1 3379074 ####[place] [address] URINALYSISOrdered By: Brittni Wren on 11-10-2022 Bilirubin Ql (U) Negative (11/10/22 5:44 PM) Normal Negative [facility] Auto SS Clarity (U) Clear (11/10/22 5:44 PM) Normal Clear [facility]A Auto SS Color (U) Yellow (11/10/22 5:44 PM) Normal Yellow [facility]A Auto SS Epithelial cells.squamous LM.HPF (Urine sed) [#/Area] 0-2 /HPF Normal 0-2/HPF [facility] UA Aut o SS Glucose Test strip (U) [Mass/Vol] Negative (11/10/22 5:44 PM) Normal Negative [facility] UA Auto SS Hemoglobin Ql (U) Negative (11/10/22 5:44 PM) Normal Negative [facility] UA Auto SS Ketones (U) [Mass/Vol] Negative (11/10/22 5:44 PM) Normal Negative [facility] UA Auto SS [place].plasma/[place]. RBC (Bld) [Mass ratio] 0-3 /HPF Normal 0-3/HPF [facility] A uto SS Nitrite Ql (U) Negative (11/10/22 5:44 PM) Normal Negative [facility] UA Auto SS pH (U) 6.0 *NA* (11/10/22 5:44 PM) Invalid Interpretation Code 5.0 - 9.0 [facility] UA Auto SS Protein (U) [Mass/Vol] Negative (11/10/22 5:44 PM) Normal Negative [facility] UA Auto SS Specific gravity (U) [Rel density] 1.010 *NA* (11/10/22 5:44 PM) Invalid Interpretation Code 1.005 - 1.030 [facility] UA Auto SS UA Spec Desc Clean Catch (11/10/22 5:44 PM) Normal [facility]A Auto SS Urobilinogen Qn (U) 0.4267854 {Elizabeth'U}/dL Normal 0.0 - 1.0 EU/dL [facility] UA Auto SS WBC Auto Ql (U) Negative (11/10/22 5:44 PM) Normal Negative [facility] UA Auto SS WBC LM.HPF (Urine sed) [#/Area] 0-5 /HPF Normal 0-5/HPF [facility] UA Auto SS eGFRon 11-10-2022 GFR/1.73 sq M.predicted among non-blacks MDRD (S/P/Bld) [Vol rate/Area] 105 mL/min/1.73 m2 Normal >=59 [facility] Comment on above: Order Comment: Order added by Discern Expert. Result Comment: Belt [employer]le [employer] crystal kidney disease could be indicated at eGFR's of less than 60 mL/min/1.73m2. Kidney failure is indicated at less than 15 mL/min/1.73m2. Performed By: #### 2 573419, 3658372, 12638076, 3419210, 6271566, 42257570, 9384210, 2544984 ####[facility] [place] [address] ECG 12 lead ECGon 04-13-2022 ECG 12 lead ECG [facility] Main [place] [id number] Electrocardiograph Report Signed Patient: Maury Collazo MR#: [id number] : 2000 Acct:[id number] Age/Sex: 21 / F ADM Date: 04/12/22 Loc: ER Room: Type: [facility] ER Attending Dr: Ordering Provider: Phillip Shaw DO Date of Service: 04/12/2205/04/2249 ECG/ECG 12 lead ECG: Chest Pain Copies to: Test Reason : Blood Pressure : / mmHG Vent. Rate : 093 BPM Atrial Rate : 093 BPM P-R Int : 176 ms QRS Dur : 072 ms QT Int : 334 ms P-R-T Axes : 079 082 033 degrees QTc Int : 415 ms Normal sinus rhythm Right atrial enlargement Nonspecific ST and T wave abnormality Inferior leads Abnormal ECG When compared with ECG of 16-JAN-2019 22:40, [place] interval has decreased Nonspecific ST and T wave abnormality now present Confirmed by SAMI SPRAGUE DO ([id number]) on 04/14/2022 6:37:26 PM Referred By: Electronically Signed By:SAMI SPRAGUE DO Transcribed By: MUS Signed By Sami Sprague DO 04/14 1837 [facility] XR chest 1V portableon 04-13 XR chest 1V portable [facility] Main [place] [address] [place], [place] [id number] XRay Report Signed Patient: Maury Collazo MR#: [id number] : 2000 Acct:[id number] Age/Sex: 21 / F ADM Date: 04/12/22 Loc: ER Room: Type: [facility] ER Attending Dr: Copies to: Phillip Shaw DO Ordering Provider: Phillip Shaw DO Date of Service: 04/12/22 XR/XR chest 1V portable: Chest Pain SINGLE VIEW CHEST CLINICAL HISTORY: Lower rib pain bilaterally when taking deep breath since this morning. History of influenza A. COMPARISON: Chest 05/10/2017 FINDINGS: Heart normal size. Lungs are clear. No free air. Scoliosis. XR/XR chest 1V portable IMPRESSION: NO ACUTE FINDINGS Impression dictated by: Javad Solomon Jr., DEricaOErica04/13/2022 10:35 AM Dictation Location: [place] [address] Transcribed By: [facility] 04/13/22 1035 Dictated By: Javad Solomon Jr, DO 04/13/22 1034 Signed By: 04/13/22 1035 Normal [facility] B-Type Natriuretic Peptideon 04-12-2022 Natriuretic peptide B (Bld) [Mass/Vol] 34.0 pg/mL Normal 5-100 [facility] Comment on above: Result Comment: PERF ORMED BY: [facility] [address] [place] [address] PATHOLOGIST SURFACE SHIP USW SUPERVISOR CATHERINE SEYMOUR M.D. Performed By: #### D DIMER, BNP, CBC, BMP, HS TROP #### [facility] [address] Basic Metabolic Panelon Anion gap [Moles/Vol] 13.1 mmol/L Normal 6.0-15.0 [facility] Comment on above: Performed By: #### D DIMER, BNP, CBC, BMP, HS TROP #### [facility] [address] [place] [address] [place] Calcium [Mass/Vol] 8.9 mg/dL Normal 8.2-10.2 [facility] Comment on above: Performed By: #### D DIMER, BNP, CBC, BMP, HS TROP #### [facility] [address] [place] [address] [place] Chloride [Moles/Vol] 101 mmol/L Normal 95-114 [facility] Comment on above: Performed By: #### D DIMER, BNP, CBC, BMP, HS TROP #### [facility] [address] [place] [address] [place] CO2 [Moles/Vol] 22.7 mmol/L Normal 22.0-30.0 [facility] Comment on above: Performed By: #### D DIMER, BNP, CBC, BMP, HS TROP #### [facility] [address] [place] [address] [place] Creatinine [Mass/Vol] 0.72 mg/dL Normal 0.44-1.[address] [facility] Comment on above: Performed By: #### D DIMER, BNP, CBC, BMP, HS TROP #### [address] Creatinine Clr Calc Pharmacy 117.02 [facility] Comment on above: Result Comment: PERF ORMED BY: [place] [address] PATHOLOGIST SURFACE SHIP USW SUPERVISOR CATHERINE SEYMOUR M.D. Performed By: #### D DIMER, BNP, CBC, BMP, HS TROP #### [address] Estimated GFR ( Lisa > 60 [facility] Comment on above: Result Comment: GFR estimated reference range: According to KDOQI guidelines, <60 ml/min/1.73m2 is sufficient to diagnose a patient with chronic kidney disease. Performed By: #### D DIMER, BNP, CBC, BMP, HS TROP #### [address] Estimated GFR (Non- Am > 60 [facility] Comment on above: Performed By: #### D DIMER, BNP, CBC, BMP, HS TROP #### [address] Glucose [Mass/Vol] 108 mg/dL High 70-100 [facility] Comment on above: Result Comment: [place] Glucose Reference Range is dependent on time and content of last meal. Glucose of more than 200 mg/dL in a nonstressed, ambulatory subject supports the diagnosis of Diabetes Mellitus. ADA recommended reference range Performed By: #### D DIMER, BNP, CBC, BMP, HS TROP #### [address] Potassium [Moles/Vol] 3.8 mmol/L Normal 3.5-5.[address] [facility] Comment on above: Performed By: #### D DIMER, BNP, CBC, BMP, HS TROP #### [address] Sodium [Moles/Vol] 133 mmol/L Low 136-146 [facility] Comment on above: Performed By: #### D DIMER, BNP, CBC, BMP, HS TROP #### [facility] [address] [place] [address] [place] Urea nitrogen [Mass/Vol] 7 mg/dL Low 9-23 [facility] Comment on above: Performed By: #### D DIMER, BNP, CBC, BMP, HS TROP #### [facility] [address] [place] [address] [place] Basophils Auto (Bld) [#/Vol] Ordered By: Phillip Shaw on 04-12-2022 Basophils (Bld) [#/Vol] 0.0 10*3/uL 0.0-0.2 [facility] Basophils/100 WBC Auto (Bld) Ordered By: Phillip Shaw on 04-12-2022 Basophils/100 WBC (Bld) 0.4 % . F [facility] Complete Blood Count Auto Di ffon 04-12-2022 Basophils (Bld) [#/Vol] 0.0 10*3/uL Normal 0.0-0.2 [facility] Comment on above: Result Comment: PERF ORMED BY: [place] [address] PATHOLOGIST SURFACE SHIP USW SUPERVISOR CATHERINE SEYMOUR M.D. Performed By: #### D DIMER, BNP, CBC, BMP, HS TROP #### [facility] [address] [place] [address] [place] Basophils/100 WBC (Bld) 0.4 % Normal . F [facility] Comment on above: Performed By: #### D DIMER, BNP, CBC, BMP, HS TROP #### [facility] [address] [place] [address] [place] Eosinophils (Bld) [#/Vol] 0.0 10*3/uL Normal 0.0-0.45 [facility] Comment on above: Performed By: #### D DIMER, BNP, CBC, BMP, HS TROP #### [facility] [address] [place] [address] [place] Eosinophils/100 WBC (Bld) 0.1 % Normal . [facility] Comment on above: Performed By: #### D DIMER, BNP, CBC, BMP, HS TROP #### [address] Erythrocyte distribution width (RBC) [Ratio] 15.1 % Normal 11.9-15.3 [facility] Comment on above: Performed By: #### D DIMER, BNP, CBC, BMP, HS TROP #### [address] Hematocrit (Bld) [Volume fraction] 37.6 % Normal 34.0-46.4 [facility] Comment on above: Performed By: #### D DIMER, BNP, CBC, BMP, HS TROP #### [address] Hemoglobin (Bld) [Mass/Vol] 12.4 g/dL Normal 11.8-15.4 [facility] Comment on above: Performed By: #### D DIMER, BNP, CBC, BMP, HS TROP #### [address] Lymphocytes (Bld) [#/Vol] 1.0 10*3/uL Normal 1.00-4.8 [facility] Comment on above: Performed By: #### D DIMER, BNP, CBC, BMP, HS TROP #### [address] Lymphocytes/100 WBC (Bld) 9.1 % Normal . [facility] Comment on above: Performed By: #### D DIMER, BNP, CBC, BMP, HS TROP #### [address] MCH (RBC) [Entitic mass] 28.8 pg Normal 24.7-34.3 [facility] Comment on above: Performed By: #### D DIMER, BNP, CBC, BMP, HS TROP #### [address] MCV (RBC) [Entitic vol] 87.5 fL Normal 80-[address] [facility] Comment on above: Performed By: #### D DIMER, BNP, CBC, BMP, HS TROP #### [facility] [address] Mean Corpuscular HGB Conc 32.9 g/dL Normal 32.0-35.0 [facility] Comment on above: Performed By: #### D DIMER, BNP, CBC, BMP, HS TROP #### [facility] [address] [place] [address] [place] Monocytes (Bld) [#/Vol] 1.1 10*3/uL High 0.0-0.8 [facility] Comment on above: Performed By: #### D DIMER, BNP, CBC, BMP, HS TROP #### [facility] [address] [place] [address] [place] Monocytes/100 WBC (Bld) 22.31 % High 0.00-20.00 [facility] Comment on above: Result Comment: For adults in ED, MDW > 20.0 may be associated with a higher risk of sepsis during the first 12 hrs of hospital admission Performed By: #### D DIMER, BNP, CBC, BMP, HS TROP #### [facility] [address] [place] [address] [place] Monocytes/100 WBC (Bld) 10.3 % Normal . [facility] Comment on above: Performed By: #### D DIMER, BNP, CBC, BMP, HS TROP #### [facility] [address] [place] [address] [place] Neutrophils (Bld) [#/Vol] 8.9 10*3/uL High 1.8-7.7 [facility] Comment on above: Performed By: #### D DIMER, BNP, CBC, BMP, HS TROP #### [facility] [address] [place] [address] [place] Neutrophils/100 WBC (Bld) 80.1 % Normal . [facility] Comment on above: Performed By: #### D DIMER, BNP, CBC, BMP, HS TROP #### [facility] [address] [place] [address] [place] NRBC% 0.1 /100{WBC} Normal 0-0.5 [facility] Comment on above: Performed By: #### D DIMER, BNP, CBC, BMP, HS TROP #### [facility] [address] Platelet mean volume (Bld) [Entitic vol] 11.4 fL High 6.3-10.7 [facility] Comment on above: Performed By: #### D DIMER, BNP, CBC, BMP, HS TROP #### [facility] [address] Platelets (Bld) [#/Vol] 181 10*3/uL Normal 150-450 [facility] Comment on above: Performed By: #### D DIMER, BNP, CBC, BMP, HS TROP #### [facility] [address] RBC (Bld) [#/Vol] 4.30 10*6/uL Normal 3.60-5.00 [facility] Comment on above: Performed By: #### D DIMER, BNP, CBC, BMP, HS TROP #### [facility] [address] WBC (Bld) [#/Vol] 11.1 10*3/uL Normal 3.8-11.6 [facility] Comment on above: Performed By: #### D DIMER, BNP, CBC, BMP, HS TROP #### [address] Creatinine and Glomerular fi ltration rate.predicted panel (S/P/Bld)Ordered By: Phillip Shaw on 04-12-2022 Creatinine [Mass/Vol] 0.72 mg/dL 0.44-1.[address] [facility] D-Dimer High Sensitivityon 0 04-12-2022 D-Dimer High Sensitivity < 200 Normal 0-243 [facility] Comment on above: Result Comment: The reference range for D-dimer is <243 ng/mL D-dimer units. D-dimer results must be used in conjunction with a clinical pretest probability (PTP) assessment model for deep vein thrombosis (DVT) and pulmonary embolism (PE). Results <230 ng/mL d-dimer units can be used as a negative predictor in patients with low or moderate probability for DVT/PE. Results above the exclusion threshold of 230 ng/ml D-dimer units for DVT/PE may indicate the need for further diagnostic testing. D-Dimer can be increased in hospitalized patients due to co-morbid conditions. PERFORMED BY: [place] [address] PATHOLOGIST SURFACE SHIP USW SUPERVISOR CATHERINE SEYMOUR M.D. Performed By: #### D DIMER, BNP, CBC, BMP, HS TROP #### [address] Eosinophils Auto (Bld) [#/Vo l]Ordered By: Phillip Shaw on 04-12-2022 Eosinophils (Bld) [#/Vol] 0.0 10*3/uL 0.0-0.45 [facility] Eosinophils/100 WBC Auto (Bl d)Ordered By: Phillip Shaw on 04-12-2022 Eosinophils/100 WBC (Bld) 0.1 % . [facility] Erythrocyte distribution wid th Auto (RBC) [Ratio]Ordered By: Phillip Shaw on 04-12-2022 Erythrocyte distribution width (RBC) [Ratio] 15.1 % 11.9-15.3 [facility] Estimated glomerular filtrat ion rate (GFR) non- AmericanOrdered By: Phillip Shaw on 04-12-2022 GFR/1.73 sq M.predicted among non-blacks MDRD (S/P/Bld) [Vol rate/Area] > 60 mL/Min [facility] Hematocrit Auto (Bld) [Volum e fraction]Ordered By: Phillip Shaw on 04-12-2022 Hematocrit (Bld) [Volume fraction] 37.6 % 34.0-46.4 [facility] Hemoglobin [Mass/volume] in BloodOrdered By: Phillip Shaw on 04-12-2022 Hemoglobin (Bld) [Mass/Vol] 12.4 g/dL 11.8-15.4 [facility] Laboratory - Chemistry and C hemistry - challengeOrdered By: Phillip Shaw on 04-12-2022 Natriuretic peptide B (Bld) [Mass/Vol] 34.0 pg/mL 5-100 [facility] Leukocytes [#/volume] correc charli for nucleated erythrocytes in Blood by Automated counOrdered By: Phillip Shaw on 04-12-2022 WBC corrected for nucl RBC Auto (Bld) [#/Vol] 11.1 10*3/uL 3.8-11.6 [facility] Lymphocytes Auto (Bld) [#/Vo l]Ordered By: Phillip Shaw on 04-12-2022 Lymphocytes (Bld) [#/Vol] 1.0 10*3/uL 1.00-4.8 [facility] Lymphocytes/100 WBC Auto (Bl d)Ordered By: Phillip Shaw on 04-12-2022 Lymphocytes/100 WBC (Bld) 9.1 % . [facility] MCH Auto (RBC) [Entitic mass ]Ordered By: Phillip Shaw on 04-12-2022 MCH (RBC) [Entitic mass] 28.8 pg 24.7-34.3 [facility] MCHC Auto (RBC) [Mass/Vol]Or dered By: Phillip Shaw on 04-12-2022 MCHC (RBC) [Mass/Vol] 32.9 g/dL 32.0-35.0 [facility] MCV Auto (RBC) [Entitic vol] Ordered By: Phillip Shaw on 04-12-2022 MCV (RBC) [Entitic vol] 87.5 fL 80-[address] [facility] Monocyte distribution width [Entitic volume] in Blood by AutomatedOrdered By: Phillip Shaw on 04-12-2022 Monocyte distribution width Auto (Bld) [Entitic vol] 22.31 % 0.00-20.00 [facility] Comment on above: For adults in ED, MD W > 20.0 may be associated with a higher risk of sepsis during the first 12 hrs of hospital admission Monocytes Auto (Bld) [#/Vol] Ordered By: Phillip Shaw on 04-12-2022 Monocytes (Bld) [#/Vol] 1.1 10*3/uL 0.0-0.8 [facility] Monocytes/100 WBC Auto (Bld) Ordered By: Phillip Shaw on 04-12-2022 Monocytes/100 WBC (Bld) 10.3 % . F [facility] Neutrophils Auto (Bld) [#/Vo l]Ordered By: Phillip Shaw on 04-12-2022 Neutrophils (Bld) [#/Vol] 8.9 10*3/uL 1.8-7.7 [facility] Neutrophils/100 WBC Auto (Bl d)Ordered By: Phillip Shaw on 04-12-2022 Neutrophils/100 WBC (Bld) 80.1 % . [facility] No Panel InformationOrdered By: Phillip Shaw on 04-12-2022 D-Dimer Quantitative (PE/DVT) < 200 ng/mL 0-243 [facility] Comment on above: The reference range for D-dimer is <243 ng/mL D-dimer units.D-dimer results must be used in conjunction with a clinicalpretest probability (PTP) assessment model for deep veinthrombosis (DVT) and pulmonary embolism (PE). Results <230ng/mL d-dimer units can be used as a negative predictor inpatients with low or moderate probability for DVT/PE.Results above the exclusion threshold of 230 ng/ml D-dimerunits for DVT/PE may indicate the need for furtherdiagnostic testing.D-Dimer can be increased in hospitalized patients due toco-morbid conditions. Estimated GFR () > 60 mL/Min [facility] Comment on above: GFR estimated refere nce range: According to KDOQI guidelines, <60 ml/min/1.73m2 is sufficient to diagnose a patient with chronic kidney disease. Pharmacy Creatinine Clearance (Chem 117.02 [facility] Nucleated erythrocytes [Pres ence] in Blood by Automated countOrdered By: Phillip Shaw on 04-12-2022 Nucleated RBC Auto Ql (Bld) 0.1 /100{WBC} 0-0.5 [facility] Platelet mean volume Auto (B ld) [Entitic vol]Ordered By: Phillip Shaw on 04-12-2022 Platelet mean volume (Bld) [Entitic vol] 11.4 fL 6.3-10.7 [facility] Platelets Auto (Bld) [#/Vol] Ordered By: Phillip Shaw on 04-12-2022 Platelets (Bld) [#/Vol] 181 10*3/uL 150-450 [facility] RBC Auto (Bld) [#/Vol]Ordere d By: Phillip Shaw on 04-12-2022 RBC (Bld) [#/Vol] 4.30 10*6/uL 3.60-5.00 [facility] Serum or plasma anion gap de terminationOrdered By: Phillip Shaw on 04-12-2022 Anion gap [Moles/Vol] 13.1 mmol/L 6.0-15.0 [facility] Serum or plasma calcium oliver urement (mass/volume)Ordered By: Phillip Shaw on 04-12-2022 Calcium [Mass/Vol] 8.9 mg/dL 8.2-10.2 [facility] Serum or plasma chloride jeanne surement (moles/volume)Ordered By: Phillip Shaw on 04-12-2022 Chloride [Moles/Vol] 101 mmol/L 95-114 [facility] Serum or plasma glucose oliver urement (mass/volume)Ordered By: Phillip Shaw on 04-12-2022 Glucose [Mass/Vol] 108 mg/dL 70-100 [facility] Comment on above: ADA recommended refe rence rangeRandom Glucose Reference Range is dependent on time and content of last meal. Glucose of more than 200 mg/dL in a nonstressed, ambulatory subject supports the diagnosis of Diabetes Mellitus. Serum or plasma potassium me asurement (moles/volume)Ordered By: Phillip Shaw on 04-12-2022 Potassium [Moles/Vol] 3.8 mmol/L 3.5-5.[address] [facility] Serum or plasma sodium measu rement (moles/volume)Ordered By: Phillip Shaw on 04-12-2022 Sodium [Moles/Vol] 133 mmol/L 136-146 [facility] Serum or plasma total carbon dioxide measurement (moles/volume)Ordered By: Phillip Shaw on 04-12-2022 CO2 [Moles/Vol] 22.7 mmol/L 22.0-30.0 [facility] Serum or plasma urea nitroge n measurement (mass/volume)Ordered By: Phillip Shaw on 01-01-2023 Urea nitrogen [Mass/Vol] 7 mg/dL 9- [facility] Troponin I High Sensitivityo n 04-12-2022 Troponin I High Sensitivity 5 pg/mL Normal 0-15 [facility] Comment on above: Result Comment: PERF ORMED BY: [facility] [address] [place] [place] [address] PATHOLOGIST SURFACE SHIP USW SUPERVISOR CATHERINE SEYMOUR M.D. Performed By: #### D DIMER, BNP, CBC, BMP, HS TROP #### [facility] [address] Troponin I.cardiac [Mass/vol ume] in Serum or Plasma by High sensitivity methodOrdered By: Phillip Shaw on 04-12-2022 Troponin I.cardiac High sensitivity method [Mass/Vol] 5 pg/mL 0-15 [facility] WBC Auto (Bld) [#/Vol]Ordere d By: Phillip Shaw on 04-12-2022 WBC (Bld) [#/Vol] 11.1 10*3/uL 3.8-11.6 [facility] COVID CepheidOrdered By: Twyla Rea on 04-07-2022 SARS-CoV-2 (COVID-19) Ab IA Ql Negative Negative [facility] Comment on above: This is a duplicate Cepheid Xpert Xpress CoV-2/Flu/RSV Plus RNA by RT-PCR result to be used for statistical tracking purpose only. SARS-CoV-2 (COVID-19) RNA BARBI+probe Ql (Unsp spec) [facility] COVID-19 / Flu A/B / RSV PCR on 04-07-2022 SARS-CoV-2 (COVID-19) RNA BARBI+probe Ql (Unsp spec) Results called at 0039 on 04/08/22 to [id number] COVID-19 Cepheid Result Negative for SARS-CoV-2 RNA by RT-PCR Flu A Cepheid Result Positive for Flu A RNA by RT-PCR Flu B Cepheid Result Negative for Flu B RNA by RT-PCR RSV Cepheid Result Negative for RSV RNA by RT-PCR COVID19 Blank Space Reference: Negative COVID19 Blank Space Cepheid Disclaimer The Cepheid Xpert Xpress CoV-2/Flu/RSV Plus has Cepheid Disclaimer not been FDA cleared or approved; this test has Cepheid Disclaimer been authorized by FDA under an EUA for use by Cepheid Disclaimer authorized laboratories; this test has been Cepheid Disclaimer authorized only for the simultaneous qualitative Cepheid Disclaimer detection and differentiation of nucleic acids from Cepheid Disclaimer SARS-CoV-2, influenza A, influenza B, and Cepheid Disclaimer respiratory syncytial virus (RSV), and not for any Cepheid Disclaimer other viruses or pathogens; and this test is only Cepheid Disclaimer authorized for the duration of the declaration that Cepheid Disclaimer circumstances exist justifying the authorization of Cepheid Disclaimer emergency use of in vitro diagnostic tests for Cepheid Disclaimer detection and/or diagnosis of COVID-19 under Cepheid Disclaimer Section 564(b)(1) of the Act, 21 U.S.C. 360bbb- Cepheid Disclaimer 3(b)(1), unless the authorization is terminated or Cepheid Disclaimer revoked sooner. PERFORMED BY: [place] [address] PATHOLOGIST SURFACE SHIP USW SUPERVISOR CATHERINE SEYMOUR M.D. Normal [facility] Comment on above: Performed By: #### C OVID19 FLU RSV, CEPHEID NEG #### [address] Cepheid COVID PCR Negativeon 04-07-2022 SARS-CoV-2 (COVID-19) RNA BARBI+probe Ql (Unsp spec) Negative Normal Negative [facility] Comment on above: Result Comment: This is a duplicate Cepheid Xpert Xpress CoV-2/Flu/RSV Plus RNA by RT-PCR result to be used for statistical tracking purpose only. PERFORMED BY: [place] [address] PATHOLOGIST SURFACE SHIP USW SUPERVISOR CATHERINE SEYMOUR M.D. Performed By: #### C OVID19 FLU RSV, CEPHEID NEG #### [address] XR Spine Lumbar 4+ Views*on 08-21-2021 XR Spine Lumbar 4+ Views* CLINICAL HISTORY: Pain and stiffness COMPARISON: NONE FINDINGS: There is no acute fracture or subluxation. There is no loss of vertebral body height. There is preservation of the lordotic curvature of the lumbar spine with levoscoliosis with a Fowler angle measurement of 18 degrees between L1 and L4.. There is mild intervertebral disc space narrowing at each level. The SI joints are symmetric. Soft tissues are unremarkable. IMPRESSION: There is spondylosis of the lumbar spine including levoscoliosis with a Fowler angle measurement of 18 degrees between L1 and L4. Report reported and signed by JOVITA MA on 08/21/2021 1223 Normal [facility] Historian Research Assistant ALLIED HEALTHon 10-04-2020 [facility]ALTH HNO ID: [id number] Author: RT Kristin(R) Service: Radiology Author Type: Publications Production Supervisor Type: Allied Health Filed: 10/04/2020 10:48 AM Note Text: Radiology Service Progress Note PATIENT NAME: Maury Collazo DATE OF SERVICE: October 04, 2020 TIME: 10:26 AM PATIENT IDENTITY VERIFICATION COMPLETED USING TWO (2) IDENTIFIERS: Name and Date of confirmed by patient verbally and Name and Date of confirmed by identification band. FALL SCREENING: Has the patient had 2 falls in the last year or 1 fall with injury or currently using an Ambulatory Assistive Device (Walker, Cane, Wheelchair, Crutches, etc.)? No PATIENT GENDER DATA: Female. status: : No status: N/A PATIENT RELEVANT IMPLANT DATA REVIEWED: Not Applicable RADIOLOGY DEPARTMENT: General X-ray: Exam(s) Completed: Spine X-Ray(s): Lumbar AP / LAT / L5-S1 Pelvis X-Ray: Pelvis General AP Lower Extremity X-Ray(s): Femur, Right PERIPHERAL IV DATA: Not applicable SIGNED BY: RT Kristin(R) October 04, 2020 10:26 AM [facility] ALLIED HEALTH HNO ID: [id number] Author: JAYCE Foster) Service: Radiology Author Type: Publications Production Supervisor Type: Allied Health Filed: 10/04/2020 9:27 AM Note Text: Waiting for HCG results to come back before performing exam Bing Fernandez) [facility] ED NOTEon 10-04-2020 ED NOTE HNO ID: [id number] Author: Samara Orozco RN Service: ? Author Type: Registered Nurse Type: ED Notes Filed: 10/04/2020 11:55 AM Note Text: Pt received written and verbal discharge instructions. Pt verbalizes understanding. All questions answered. Pt educated on medications and dosages.Instructed pt to follow up with PCP or follow-up DR. No acute distress noted. Instructed to come back to Emergency Room if symptoms worsen. All belongings with patient. Pt ambulated with steady gait out of ED. [facility] ED NOTE HNO ID: [id number] Author: Samara Orozco RN Service: ? Author Type: Registered Nurse Type: ED Notes Filed: 10/04/2020 11:38 AM Note Text: Pt resting comfortably in bed. Comfort measures offered. Call light within reach. No distress noted at this time. Safety maintained and will continue to monitor patient. [facility] ED NOTE HNO ID: [id number] Author: Samara Orozco RN Service: ? Author Type: Registered Nurse Type: ED Notes Filed: 10/04/2020 11:38 AM Note Text: Pt resting comfortably in bed. Comfort measures offered. Call light within reach. No distress noted at this time. Safety maintained and will continue to monitor patient. [facility] ED NOTE HNO ID: [id number] Author: Akin Mcclain RN Service: ? Author Type: Registered Nurse Type: ED Notes Filed: 10/04/2020 9:21 AM Note Text: PO fluids provided [facility] ED NOTE HNO ID: [id number] Author: Akin Mcclain RN Service: ? Author Type: Registered Nurse Type: ED Notes Filed: 10/04/2020 8:25 AM Note Text: Pt presented to the ED c/o bilat hip pain persisting for approx 2 weeks. Indicated that she tumbles; yesterday pt stated that led gave out and she fell. Pain has been increasing in intensity since then. Pt denies hitting her head or LOC. +MSP; gate is steady. [facility] ED PROV NOTEon 10-04-2020 ED PROV NOTE HNO ID: [id number] Author: Al Castellanos MD Service: Emergency Medicine Author Type: Physician Type: ED Provider Notes Filed: 10/04/2020 11:35 AM Note Text: ED Provider Note Patient Name: Maury Collazo SERVICE DATE: 10/04/20 History Patient presents with: Hip Pain 20-year-old female presents to the emergency room complaining of bilateral hip pain. She states that it began several weeks ago. She states that she recently began tumbling and doing flips. She has a history of low back pain. She states that she has felt generally weak and had a fall where she landed on her right hip. She describes the pain in her right hip is 8 out of 10 in intensity. The pain in her left hip is 7 out of 10 in intensity. She states that the pain is worse when she walks. She has not taken any medication for this. She denies any alleviating factors. She denies any incontinence of urine or stool. She denies any fevers or chills. She denies any IV drug use. History provided by: Patient tag stringer used: No History reviewed. No pertinent past medical history. History reviewed. No pertinent surgical history. No family history on file. Social History Tobacco Use - Smoking status: Heavy Tobacco Smoker - Smokeless tobacco: Never Used Substance and Sexual Activity - Alcohol use: Not on file - Drug use: Not on file - Sexual activity: Not on file ALLERGIES Allergen Reactions - Penicillins Rash Review of Systems Constitutional: Negative. HENT: Negative. Eyes: Negative. Respiratory: Negative. Cardiovascular: Negative. Gastrointestinal: Negative. Genitourinary: Negative. Musculoskeletal: Positive for back pain and gait problem. Negative for neck pain and neck stiffness. Skin: Negative. Psychiatric/Behaviora l: Negative. All other systems reviewed and are negative. Physical Exam BP 117/79 Pulse 77 Temp (Src) 98.1 (Oral) Resp 18 Wt 133 lb (60.3kg) SpO2 100% LMP 09/23/2020 O2 Therapy: Room Air Physical Exam Vitals and nursing note reviewed. Constitutional: General: She is awake. She is not in acute distress. Appearance: Normal appearance. She is well-developed and normal weight. She is not ill-appearing, toxic-appearing or diaphoretic. HENT: Head: Normocephalic and atraumatic. Jaw: There is normal jaw occlusion. Nose: Nose normal. Eyes: General: Lids are normal. Vision grossly intact. Gaze aligned appropriately. Extraocular Movements: Extraocular movements intact. Conjunctiva/sclera: Conjunctivae normal. Pupils: Pupils are equal, round, and reactive to light. Neck: Trachea: Trachea and phonation normal. Cardiovascular: Rate and Rhythm: Normal rate and regular rhythm. Pulses: Normal pulses. Heart sounds: Normal heart sounds. Pulmonary: Effort: Pulmonary effort is normal. Breath sounds: Normal breath sounds. Abdominal: General: Bowel sounds are normal. Palpations: Abdomen is soft. Musculoskeletal: General: Normal range of motion. Cervical back: Full passive range of motion without pain, normal range of motion and neck supple. Lumbar back: Tenderness and bony tenderness present. No swelling. Normal range of motion. Negative right straight leg raise test and negative left straight leg raise test. Back: Right hip: No deformity or tenderness. Normal range of motion. Left hip: No deformity or tenderness. Normal range of motion. Legs: Skin: General: Skin is warm and dry. Neurological: General: No focal deficit present. Mental Status: She is alert and oriented to person, place, and time. GCS: GCS eye subscore is 4. GCS verbal subscore is 5. GCS motor subscore is 6. Sensory: Sensation is intact. Motor: Motor function is intact. Psychiatric: Attention and Perception: Attention and perception normal. Mood and Affect: Mood and affect normal. Speech: Speech normal. Behavior: Behavior normal. Behavior is cooperative. Thought Content: Thought content normal. Cognition and Memory: Cognition and memory normal. Judgment: Judgment normal. Spine Care Path Location of Pain: Low Back (AL CASTELLANOS at 10/04/2020 8:41 AM) Phase: Chronic (> 12 Weeks) (AL CASTELLANOS at 10/04/2020 8:41 AM) History of Malignancy: No (AL CASTELLANOS at 10/04/2020 8:41 AM) Prolonged Steroid Use: No (AL CASTELLANOS at 10/04/2020 8:41 AM) Recent Use of IV Drugs: No (AL CASTELLANOS at 10/04/2020 8:41 AM) Unexplained Fever: No (AL CASTELLANOS at 10/04/2020 8:41 AM) Significant Injury to Spine: No (AL CASTELLANOS at 10/04/2020 8:41 AM) Recent Urinary Retention; Fecal Incontinence or Saddle Numbness: No (AL CASTELLANOS at 10/04/2020 8:41 AM) Gait or Balance Disturbance: Yes (AL CASTELLANOS at 10/04/2020 8:41 AM) Progressive Weakness in Arms/Legs: No (AL CASTELLANOS at 10/04/2020 8:41 AM) History of Osteoporosis: No (AL CASTELLANOS at 10/04/2020 8:41 AM) Imaging Needed? Imaging Needed (AL CASTELLANOS at 10/05/19 (more content not included)... Normal [facility] HCG Qual, Urineon 10-04-2020 Beta HCG ( test) Ql (U) Negative Normal Negative [facility] Comment on above: Performed By: #### U HCG #### [facility] [address] [address] XR FEMUR 2V AP/LAT RTon 09-11 XR FEMUR 2V AP/LAT RT * * *Final Report* * * DATE OF EXAM: Oct 04 2020 10:47AM LUX 5333 - XR FEMUR 2V AP/LAT RT / PROCEDURE REASON: Hip pain, acute, fx suspected, initial exam * * * * Physician Interpretation * * * * EXAM: XR FEMUR 2V AP/LAT RT, XR PELVIS 1V AP HISTORY: Hip pain, acute, fx suspected, initial exam. Bilateral hip pain x2 weeks. VIEWS: AP and lateral right femur. AP pelvis. COMPARISON: No relevant comparison. FINDINGS: No malalignment, acute pelvic or right femur fracture. Hip joint spaces are maintained bilaterally. Incidental left iliac bone island. Pelvic phlebolith. IMPRESSION: No acute bone or joint space abnormality. Automatic Buffing Wheel Former: ROSA Transcribe Date/Time: Oct 04 2020 10:50A Dictated by : Anca MACKENZIE MD This examination was interpreted and the report reviewed and electronically signed by: Anca MACKENZIE MD on Oct 04 2020 10:55AM EST [id number] [facility] XR LUMBAR 3V AP/LAT/L5-S1on 10-04-2020 XR LUMBAR 3V AP/LAT/L5-S1 * * *Final Report* * * DATE OF EXAM: Oct 04 2020 10:47AM LUX 5228 - XR LUMBAR 3V AP/LAT/L5-S1 / PROCEDURE REASON: Back pain, < 6wks, no red flags, no prior management * * * * Physician Interpretation * * * * EXAM: XR LUMBAR 3V AP/LAT/L5-S1 HISTORY: Back pain, < 6wks, no red flags, no prior management. VIEWS: Standing AP, lateral, coned lateral L5-S1. COMPARISON: 12/01/2012. FINDINGS: L5 is considered a transitional sacralized vertebral body. Chronic left convex curvature apex at L2. Satisfactory anteroposterior alignment. No acute fracture. Maintained interspaces with small endplate Schmorl's nodes at L1-2 and L2-3. Posterior elements are unremarkable. IMPRESSION: Spinal curvature. Small endplate Schmorl's nodes at L1-2 and L2-3. Counting reference: Lumbosacral junction. For the purposes of this report, L4-5 is considered the level of the iliac crest and there are 5 lumbar-type vertebrae. Anatomic Variant: Transitional L5 vertebral body. Automatic Buffing Wheel Former: [facility] Transcribe Date/Time: Oct 04 2020 10:56A Dictated by : Anca MACKENZIE MD This examination was interpreted and the report reviewed and electronically signed by: Anca MACKENZIE MD on Oct 04 2020 10:58AM EST [id number] [facility] XR PELVIS 1V APon 10-04-2020 XR PELVIS 1V AP * * *Final Report* * * DATE OF EXAM: Oct 04 2020 10:47AM LUX 5239 - XR PELVIS 1V AP / PROCEDURE REASON: Hip pain, acute, fx suspected, initial exam * * * * Physician Interpretation * * * * EXAM: XR FEMUR 2V AP/LAT RT, XR PELVIS 1V AP HISTORY: Hip pain, acute, fx suspected, initial exam. Bilateral hip pain x2 weeks. VIEWS: AP and lateral right femur. AP pelvis. COMPARISON: No relevant comparison. FINDINGS: No malalignment, acute pelvic or right femur fracture. Hip joint spaces are maintained bilaterally. Incidental left iliac bone island. Pelvic phlebolith. IMPRESSION: No acute bone or joint space abnormality. Automatic Buffing Wheel Former: ROSA Transcribe Date/Time: Oct 04 2020 10:50A Dictated by : Anca MACKENZIE MD This examination was interpreted and the report reviewed and electronically signed by: Anca MACKENZIE MD on Oct 04 2020 10:55AM EST [id number] Normal [facility] CHEST 1 VIEWon 10-01-2020 CHEST 1 VIEW Patient Name: MAURY COLLAZO STUDY: CHEST 1 VIEW; 10/01/2020 7:54 am INDICATION: cough. COMPARISON: None. ACCESSION NUMBER(S): [id number] ORDERING CLINICIAN: ERON JONES TECHNIQUE: A portable radiograph of the chest is performed. FINDINGS: There is dextroscoliosis of the mid to lower thoracic spine and levoscoliosis of the upper lumbar spine. The heart is of normal size and contour. The pulmonary vessels are within normal limits. The lungs and the pleural spaces are clear. There is no pneumothorax. The osseous structures are intact. IMPRESSION: No sign of acute cardiopulmonary disease. Electronically signed by: LARS DAMICO MD Normal [facility] CORONAVIRUS 2019 BY PCRon SARS-CoV-2 (COVID-19) RNA BARBI+probe Ql (Unsp spec) Not detected Normal Not Detected [facility] Comment on above: Result Comment: . This assay is designed to detect the RdRp gene of SARS-CoV-2 via nucleic acid amplification. A Not Detected result does not preclude COVID-19 infection since the adequacy of sample collection and/or low viral burden may result in presence of viral nucleic acids below the clinical sensitivity of this test method. Fact sheet for providers: www.fda.gov/media/631065/download Fact sheet for patients: www.fda.gov/media/862881/download This test has received FDA Emergency Use Authorization (EUA) and has been verified by [facility] ([facility]). This test is only authorized for the duration of time that circumstances exist to justify the authorization of the emergency use of in vitro diagnostic tests for the detection of SARS-CoV-2 virus and/or diagnosis of COVID-19 infection under section 564(b)(1) of the Act, 21 U.S.C. 360bbb-3(b)(1), unless the authorization is terminated or revoked sooner. [facility] is certified under CLIA-88 as qualified to perform high complexity testing. Testing is performed in the [facility] laboratory located at [address] [place] [address]. Performed By: #### C OV19 #### [address] [id number] DATE OF SYMPTOM ONSET [YYYYMMDD]? [id number] Normal [facility] Comment on above: Performed By: #### C OV19 #### [address] [id number] Lab Specimen Source Nasal, Nasopharyngeal Normal [facility] Comment on above: Performed By: #### C OV19 #### [address] [id number] Covid 19 Resultson 1 SARS-CoV-2 (COVID-19) RNA BARBI+probe Ql (Unsp spec) NEGATIVE COVID-19 Test Coronaviruses are common world-wide and are the cause of many common colds. SARS-COV2 is a new coronavirus that began circulating worldwide in 2019 so we are calling it COVID-19. It has been estimated that four out of five patients with COVID-19 will recover at home without the need for medical attention. Symptoms of COVID-19 may include cough, fever, shortness of breath, loss of taste or smell and other flu-like symptoms including chills, sore muscles, sore throat, and headache. Severe illness is more common in older people and people with other health problems such as high blood pressure, obesity, and immune system problems. If the test is positive, you have COVID-19. You will be contacted by the ordering physicians office and instructed to remain on home isolation, in accordance with CDC guidelines. You may also be contacted by the [place] Department [facility] to see if any of your close contacts may have been exposed to the virus and need to quarantine. If the test is negative, you likely do not have COVID-19 at this time, but you still may have a different illness that can spread to other people (like Influenza, or the Flu) and could still be at risk for getting COVID-19. We recommend that you stay away from other people to limit the spread of illness until your symptoms are improving and you are fever-free for 24 hours without the use of fever lowering medications such as acetaminophen or ibuprofen. No test is 100% accurate so if you are still concerned you may have COVID-19, talk to your doctor about the need to continue to stay away from others. Medicines Unless your provider told you not to use the following: Acetaminophen (Tylenol and others) is generally safe. Anti-inflammatory medications, such as Ibuprofen (Advil or Motrin) or Naproxen (Aleve) can also be used. Xxcs-gtt-iiiaupi cough and cold medicines can be used according to the instructions on the package. Some lfuk-mqw-kwgilmf medicines also contain acetaminophen. Make sure you are not taking more than your recommended dose. For those not hospitalized, there is no specific treatment available for this illness. Antibiotics do not treat Coronaviruses. Follow-Up Follow up with your doctor by scheduling a virtual visit or consider follow-up at one of our urgent care fever clinics. If you are having difficulty breathing, or are very weak and having difficulty standing, this is a medical emergency. Call 911 or have someone take you to the nearest emergency room immediately. If possible, wear a facemask. Additional guidance from the CDC for patients who tested POSITIVE for COVID-19 How to isolate: Isolate yourself in a specific room at home and limit your contact with others. Use a separate bathroom from other members of the household, when possible. Leave home only to get essential medical care. Do not go to work, school or public areas. Avoid using public transportation, ride-sharing, or taxis. Restrict contact with pets and other animals. If you must care for your pet or be around animals while you are sick, wash your hands before and after your interaction and wear a facemask. Make sure that shared spaces in the home have good airflow, such as by an air conditioner or an opened window, weather permitting. Personal Hygiene Procedures: Wear a face mask when in the same room as other people or pets. If a face mask interferes with your breathing, others should wear a mask when sharing space with you. Frequent hand-washing: wash your hands with soap and water for at least 20 seconds. If soap and water are not available, use alcohol-based hand sand slinger. Avoid touching your eyes, nose, and mouth with unwashed hands. Household Hygiene Procedures: Avoid sharing personal household items such as dishes, glassware, cups, eating utensils, towels or bedding with other people or pets in your home. After use, these items should be washed with soap and hot water. Disinfect all high-touch surfaces every day with antibacterial cleaning solutions such as Lysol wipes, bleach, cleansers, etc. High-touch surfaces include tabletops, doorknobs, bathroom fixtures, toilets, phones, keyboards, tablets and bedside tables. Immediately clean any surfaces that may have blood, poop or body fluids on them, using antibacterial cleaning solutions such as Lysol wipes, bleach, cleansers, etc. If clothing or bedding come into contact with blood, poop or body fluids, they should be washed immediately. Follow the directions on the laundry detergent and clothing labels but hot water is recommended when possible. Stopping home isolation precautions: If possible, consult your doctor before stopping home isolation precautions. According to the CDC, you can discontinue home isolation precautions when you have met both of these criteria: Your fever and respiratory symptoms have been gone for 24 reginald (more content not included)... Normal [facility] Provider Note - ED v2on 09-11 Provider Note - ED v2 Provider Note - ED v2: Chart Review: ED NOTES ED NOTES: 20-year-old female presenting to the ED today with sinus congestion, runny nose and a productive cough x4 days. Patient has no known sick contacts or recent travel, no exposures to Covid that she is aware of and she has not been vaccinated for Covid. Her symptoms started 4 days ago and seem to be progressing. She states initially was a dry cough, now productive of phlegm. She reports sinus congestion, runny nose but denies any associated fever, headache, neck pain or sore throat. She states that her chest feels tight when she coughs but denies chest pain or pressure at rest or with exertion and denies any associated shortness of breath or wheezing or hemoptysis. She denies nausea, vomiting, diarrhea, rashes or any other complaints at this time. No concern for . No personal or family history of DVT/PE and no calf tenderness or swelling, recent travel or surgery immobilization. She is a current everyday smoker. HISTORY OF PRESENTING ILLNESS MAURY is a 20 year old Female and was seen by me at 01-Oct-2020 07:26 for a chief complaint of cough . The historian is the patient. Triage Information: Most recent Vital Sign Value Date Temp (F): 96.8 10-01-2020 07:27 Temp (C): 36 10-01-2020 07:27 Heart Rate (beats/min): 72 10-01-2020 07:27 Respirations (breaths/min): 16 10-01-2020 07:27 SpO2 (%): 98 10-01-2020 07:27 BP Systolic (mm Hg): 115 10-01-2020 07:27 BP Diastolic (mm Hg): 70 10-01-2020 07:27 PAST MEDICAL HISTORY ATTESTATION: I have reviewed and confirmed nurse's/medic's notes for patient's medications, allergies, and medical, surgical, family and social history ALLERGIES/INTOLERANCE S: Allergy Allergen: penicillin Type: Drug Reaction: Rash HEALTH HISTORY: No documented data. OUTPATIENT MEDICATIONS: Home Medications Review Status for Reconciliation: Complete Med Status: Patient Currently Takes Medications Drug Name: Kyalimelecio Instructions: null Drug Name: benzonatate 100 mg oral capsule Instructions: 1 cap(s) orally every 8 hours, As Needed SIGNIFICANT EVENTS: No documented data. COOK ICE CREAM: Is : no(1) Is : no(1) REVIEW OF SYSTEMS CONSTITUTIONAL: Negative for: chills and fever EYES: Negative for: pain ENMT Ears: Negative for: pain Nose: POSITIVE for: congestion, discharge and sneezing Negative for: nose bleeds and obstruction Throat/Neck: Negative for: throat pain, neck pain and neck stiffness CARDIOVASCULAR: Negative for: chest pain, edema and palpitations RESPIRATORY: POSITIVE for: cough and pleuritic chest pain Negative for: dyspnea, hemoptysis and wheezing GASTROINTESTINAL: Negative for: diarrhea, nausea and vomiting; NEUROLOGICAL: Negative for: dizziness and headache; All other systems reviewed and are negative RESULTS/VITAL SIGNS RESULTS: Recent Lab Results: I have reviewed these laboratory results: Coronavirus 2019 by PCR 01-Oct-2020 07:35:00 ResultValue Fluid Source Nasal, Nasopharyngeal Coronavirus 2019,PCR NOT DETECTED Reference Range: Not Detected . This assay is designed to detect the RdRp gene of SARS-CoV-2 via nucleic acid amplification. A Not Detected result does not preclude COVID-19 infection since the adequacy of sample collection and/or Date of Symptom Onset [id number] Radiology Results: Impression: No sign of acute cardiopulmonary disease. Xray Chest 1 View [Oct 01 2020 8:04AM] VITAL SIGNS: T PRBP SpO2O2(LPM) %FiO2 Method 01-Oct-2020 07:27:[id number] 98 room air, no respiratory support PHYSICAL EXAM CONSTITUTIONAL: Well appearing, well nourished, awake, alert, oriented to person, place, time/situation and in no apparent distress. HENMT: Airway patent, ears with clear tympanic membranes bilaterally. Nasal mucosa clear. Mouth with normal mucosa. Throat has no vesicles, no oropharyngeal exudates and uvula is midline. FROM neck, nontender without lymphadenopathy. EYES: Clear bilaterally, pupils equal, round and reactive to light. EOMI CARDIOVASCULAR: Normal rate, regular rhythm. Heart sounds S1, S2. No murmurs, rubs or gallops. No peripheral edema RESPIRATORY: Breath sounds clear and equal bilaterally. MUSCULOSKELETAL: Normal gait and strength tone, no calf tenderness or swelling bilaterally NEUROLOGICAL: Alert and oriented, speech normal SKIN: Skin normal color for race, warm, dry and intact. No evidence of trauma. 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 No recent travel or sick contacts known with Covid however she is not vaccinated for Covid. No associated fever, headache or sore throat, vomiting or diarrhea. She does report chest tightness only with cough, not at (more content not included)... Normal [facility] Risk Screen - Adult Emergenc yon 10-01-2020 Risk Screen - Adult Emergency Preferred Language: Preferred Language: Preferred Language for Discussing Health Care (patient/designee)Filemon calle Advanced Directives: Advance Directive/DNRno Family Violence Adult: Abuse Screen: Are you or have you been threatened or abused physically, emotionally, or sexually by anyoneno Learning Assessment (Patient): Learning Assessment (Patient): Patient is Able to be Assessed for Learningyes Factors Influencing Readiness to Learninterest in learning Factors that Impact Ability to Learnnone Devices/Methods Used to Communicatenone Learning Preferencesskill demonstration; verbal instruction Cultural Considerationsnone Developmental Considerationsnone Gnosticist Considerationsnone Learning Assessment (Other Learner): Learning Assessment (Other Learner): Other learner availableno Pressure Injury/TB/Substance: Pressure Injury: Pressure Injury Present on Admissionno Do you have a coughyes... Has your cough lasted longer than 2 weeksno Substance Use Current or Former Historynever: e-Cigarette/Vaping, Alcohol, Street Drugs YES: Cigarette/Tobacco Smoking Statuscurrent every day smoker Admission Risk Screen: Significant IndicatorsComplete CAGE: CAGE: Is this an injured patient at a Trauma Center ([facility]/[place]): no Electronic Signatures: Hailey Shepard (STAFF N) (Signed 01-Oct-2020 07:27) Authored: Preferred Language, Advanced Directives, Family Violence Adult, Learning Assessment (Patient), Learning Assessment (Other Learner), Pressure Injury/TB/Substance, Pressure Injury, CAGE Last Updated: 01-Oct-2020 07:27 by Hailey Shepard (STAFF N) Normal [facility] Triage - EDon 10-01-2020 Triage - ED Quick Triage: Are You no Have You Given In The Last 6 Weeksno Are You Currently Breastfeedingno The patient and/or guardian verbally acknowledges placement for services into the following (when Urgent Care Service hours are operating):emergency department Chart Review: PRIMARY ASSESSMENT ABCD Normal Findings: airway open and patent, circulation normal and alert and oriented ARRIVAL INFORMATION Means of Arrival: Ambulatory Mode of Arrival: private vehicle Arrival From: home Accompanied By: self Language: Spoken Language Preferred: Israeli Reading Language Preferred: Israeli Electro Mechanical Designer Requested: no branch lending manager was requested MDRO: History of MDRO: no Present on Arrival: Device Present on Arrival to ED: no Pressure Ulcer Present on Arrival to ED: no CHIEF COMPLAINT MAURY COLLAZO is a Female patient with a chief complaint of cough. Triage Date/Time: 01-Oct-2020 07:28 IONA: 4 Pain Rating (0-10): 5 = Moderate Pain location: when cough Vital Signs: Temperature: 96.8F ( 36.0C) taken temporal Blood Pressure: 115/70 Mean: Heart Rate: 72 Respiratory Rate: 16 Pulse Oximetry: 98% on room air, no respiratory support. Height: 5 feet 9 inches. 175.2 CM Weight: 130.0 pounds. Calculated 59.0 kg. (stated) Calculated BMI (kg/m2): 19.221 Calculated BSA (m2) 1.69 Cough lasting greater than 3 weeks: no Patient immunocompromised related to: N/A Allergies: yes Patient has homicidal thoughts: no Symptoms Are POSITIVE For: congestion and cough. Symptoms Are Negative For: body aches, chest pain, chills, diaphoresis, dyspnea, fever, headache and malaise. Risk Screens Suicide Risk Screen In the Past Month: Have you wished you were or wished you could go to sleep and not wake up no In the Past Month: Have you had any actual thoughts of killing yourself no In Your Lifetime: Have you ever done anything, started to do anything, or prepared to do anything to end your life no Melton Fall Scale Screening Has the patient fallen before (or is the patient in the ED as a result of a fall) has not had a fall Does the patient have an impaired gait does not have impaired gait Is the patient cognitively impaired not cognitively impaired Interventions: Melton Fall Interventions: LOW INTERVENTIONS: *patient oriented to surroundings and call system, * patient/family falls education completed and documented, *patients fall status communicated during bedside handoff, *whiteboard updated, *mode of toileting discussed with patient, *bed in low position with brakes locked, *call light in reach, * non-skid footwear PAST MEDICAL HISTORY Immunization History: Last Known Tetanus Immunization: Greater than 5 years but less than 10 years TRAVEL HISTORY Travel History Coronavirus Screening: positive for symptoms Travel Exposure History: NO travel to International locations in the past 30 days PAIN Pain Scale Used: LUCIA Pain Rating (0-10): 5 = Moderate Pain Management Interventions: relaxation, quiet environment facilitated and positioning Past Medical History: Past Medical History Reviewedyes Electronic Signatures: Hailey Shepard (STAFF N) (Signed 01-Oct-2020 07:32) Entered: Risk Screens, Pain, Arrival, ABCD, Immunizations, Travel History, Chart Review, Scores, Past Medical History Authored: Quick Triage, Risk Screens, Pain, Arrival, ABCD, Immunizations, Travel History, Chart Review, Scores, Past Medical History Last Updated: 01-Oct-2020 07:32 by Hailey Shepard (STAFF N) Normal [facility] CBC AUTO DIFFon 09-10-2018 Basophils #/vol (Bld) 0.0 103/ul Normal 0.0-0.1 [facility] Comment on above: Performed By: #### C BC #### [facility] [address] [place] [address] Dianne Mame Basophils/100 WBC (Bld) 0.4 % Normal 0.2-2.0 [facility] Comment on above: Performed By: #### C BC #### [facility] [address] [place] [address] Dianne Mame Eosinophils #/vol (Bld) 0.0 103/ul Normal 0.0-0.7 [facility] Comment on above: Performed By: #### C BC #### [facility] [address] [place] [address] Dianne Mame Eosinophils/100 WBC (Bld) 0.4 % Critically low 0.9-7.0 [facility] Comment on above: Performed By: #### C BC #### [facility] [address] [place] [address] Dianne Vilchis Erythrocyte distribution width Ratio (RBC) 12.9 % Normal 11.0-15.0 [facility] Comment on above: Performed By: #### C BC #### [facility] [address] [place] [address] Dianne Vilchis Hematocrit Volume Fraction (Bld) 38.9 % Normal 36.0-48.0 [facility] Comment on above: Performed By: #### C BC #### [facility] [address] [place] [address] Dianne Vilchis Hemoglobin mass conc (Bld) 13.4 g/dL Normal 12.0-16.0 [facility] Comment on above: Performed By: #### C BC #### [facility] [address] [place] [address] Dianne Vilchis IG # 0.03 10e3/ul Normal 0.00-0.03 [facility] Comment on above: Performed By: #### C BC #### [facility] [address] [place] [address] Dianne Vilchis IG % 0.3 % Normal 0.0-0.5 [facility] Comment on above: Performed By: #### C BC #### [facility] [address] [place] [address] Dianne Vilchis Lymphocytes #/vol (Bld) 2.1 103/ul Normal 1.2-3.8 [facility] Comment on above: Performed By: #### C BC #### [facility] [address] [place] [address] Dianne Vilchis Lymphocytes/100 WBC (Bld) 20.3 % Critically low 20.5-60.0 [facility] Comment on above: Performed By: #### C BC #### [facility] [address] [place] [address] Dianne Vilchis MANUAL DIFF REQ NO Normal [facility] Comment on above: Performed By: #### C BC #### [facility] [address] [place] [address] Dianne Vilchis MCH Entitic mass (RBC) 30.4 pg Normal 26.7-34.0 [facility] Comment on above: Performed By: #### C BC #### [facility] [address] [place] [address] Dianne Vilchis MCHC mass conc (RBC) 34.4 g/dL Normal 29.9-35.2 [facility] Comment on above: Performed By: #### C BC #### [facility] [address] [place] [address] Dianne Vilchis MCV Entitic volume (RBC) 88.2 fL Normal 81.0-99.0 [facility] Comment on above: Performed By: #### C BC #### [facility] [address] [place], [place] [address] Dianne Mame Monocytes #/vol (Bld) 0.6 103/ul Normal 0.3-0.8 [facility] Comment on above: Performed By: #### C BC #### [facility] [address] [place], [place] [address] Dianne Mame Monocytes/100 WBC (Bld) 5.7 % Normal 1.7-12.0 [facility] Comment on above: Performed By: #### C BC #### [facility] [address] [place] [id number] Dianne Mame Neutrophils #/vol (Bld) 7.4 103/ul Critically high 1.4-6.5 [facility] Comment on above: Performed By: #### C BC #### [facility] [address] [place], [place] [id number] Dianne Mame Neutrophils/100 WBC (Bld) 72.9 % Normal 43.0-75.0 [facility] Comment on above: Performed By: #### C BC #### [facility] [address] [place] [address] Dianne Mame Platelet mean volume Entitic volume (Bld) 12.5 fL Normal 9.5-13.5 [facility] Comment on above: Performed By: #### C BC #### [facility] [address] [place], [place] [id number] Dianne Mame Platelets #/vol (Bld) 192 103/ul Normal 150-450 [facility] Comment on above: Performed By: #### C BC #### [facility] [address] [place], [place] [address] Dianne Mame RBC #/vol (Bld) 4.41 106/ul Normal 4.20-5.40 [facility] Comment on above: Performed By: #### C BC #### [facility] [address] [place] [id number] Dianne Mame WBC #/vol (Bld) 10.1 103/ul Normal 4.0-11.0 [facility] Comment on above: Performed By: #### C BC #### [facility] [address] [place] [id number] Dianne Mame ER URINE PROFILEon 9 Bilirubin mass conc SMALL Normal NEGATIVE [facility] Comment on above: Performed By: #### E RUR #### [facility] [address] [place], [place] [id number] Dianne Mame BLOOD Negative Normal NEGATIVE [facility] Comment on above: Performed By: #### E RUR #### [facility] [address] [place] [address] Dianne Mame Clarity Nom (U) CLEAR Normal [facility] Comment on above: Performed By: #### E RUR #### [facility] [address] [place] [address] Dianne Mame Color Nom (U) YELLOW Normal YELLOW [facility] Comment on above: Performed By: #### E RUR #### [facility] [address] [place] [address] Dianne Mame ERUAHD A micrscopic examination will be performed if indicated. Normal [facility] Comment on above: Performed By: #### E RUR #### [facility] [address] [place] [address] Dianne Mame Glucose mass conc Negative Normal NEGATIVE [facility] Comment on above: Performed By: #### E RUR #### [facility] [address] [place] [address] Dianne Mame Ketones Ql (U) >=80 Normal NEGATIVE [facility] Comment on above: Performed By: #### E RUR #### [facility] [address] [place], [place] [id number] Dianne Mame Nitrite Ql (U) Negative Normal NEGATIVE [facility] Comment on above: Performed By: #### E RUR #### [facility] [address] [place] [address] Dianne Mame pH (Bld) 6.0 Normal 5-9 [facility] Comment on above: Performed By: #### E RUR #### [facility] [address] [place], [place] [id number] Dianne Vilchis Protein mass conc (U) TRACE Normal [facility] Comment on above: Performed By: #### E RUR #### [facility] [address] [place], [place] [id number] Dianne Vilchis SPEC GRAVITY 1.025 Normal 1.005-<=1.02 5 [facility] Comment on above: Performed By: #### E RUR #### [facility] [address] [place], [place] [id number] Dianne Vilchis UR MICRO IND NOT INDICATED Normal [facility] Comment on above: Performed By: #### E RUR #### [facility] [address] [place], [place] [id number] Dianne Vilchis Urobilinogen Qn (U) 0.2 EU/dl Normal [facility] Comment on above: Performed By: #### E RUR #### [facility] [address] [place], [place] [id number] Dianne Mame WBC #/vol (Bld) Negative Normal NEGATIVE [facility] Comment on above: Performed By: #### E RUR #### [facility] [address] [place], [place] [id number] Dianne Vilchis PROF 14(COMP METB)on 019 Albumin mass conc 3.8 g/dL Normal 3.5-5.0 [facility] Comment on above: Performed By: #### C MP #### [facility] [address] [place], [place] [id number] Dianne Mame Albumin/Globulin mass ratio 1.0 {ratio} Normal [facility] Comment on above: Performed By: #### C MP #### [facility] [address] [place], [place] [id number] Dianne Vilchis ALP enzyme act/vol 53 U/L Normal 38-[address] [facility] Comment on above: Performed By: #### C MP #### [facility] [address] [place] [address] Dianneisidro Vilchis ALT enzyme act/vol 25 U/L Normal 9-[address] [facility] Comment on above: Performed By: #### C MP #### [facility] [address] [place] [address] Dianne Mame Anion gap molar conc 13.4 mmol/L Normal [facility] Comment on above: Performed By: #### C MP #### [facility] [address] [place] [address] Dianne Mame AST enzyme act/vol 17 U/L Normal 14-[address] [facility] Comment on above: Performed By: #### C MP #### [facility] [address] [place] [address] Dianne Mame Bilirubin Ql (U) 0.5 mg/dL Normal 0.2-1.3 [facility] Comment on above: Performed By: #### C MP #### [facility] [address] [place] [address] Dianne Mame Calcium mass conc 9.6 mg/dL Normal 8.4-10.2 [facility] Comment on above: Performed By: #### C MP #### [facility] [address] [place] [id number] Dianne Mame Chloride molar conc 101 mmol/L Normal 98-107 [facility] Comment on above: Performed By: #### C MP #### [facility] [address] [place] [address] Dianne Mame CO2 molar conc 24.1 mmol/L Normal 22.0-30.0 [facility] Comment on above: Performed By: #### C MP #### [facility] [address] [place] [address] Dianne Mame Creatinine mass conc 0.64 mg/dL Normal 0.52-1.04 [facility] Comment on above: Performed By: #### C MP #### [facility] [address] [place] [id number] Dianne Mame EGFR-AF SWAZI >60 Normal >=60 [facility] Comment on above: Performed By: #### C MP #### [facility] [address] [id number] Dianne Mame EGFR-NON AF SWAZI >60 Normal >=60 [facility] Comment on above: Performed By: #### C MP #### [facility] [address] [id number] Dianne Mame Globulin mass conc (S) 3.9 g/dL Normal [facility] Comment on above: Performed By: #### C MP #### [facility] [address] [id number] Dianne Mame Glucose mass conc 76 mg/dL Normal 74-106 [facility] Comment on above: Performed By: #### C MP #### [facility] [address] [address] Dianne Mame Potassium molar conc 3.5 mmol/L Normal 3.4-5.0 [facility] Comment on above: Performed By: #### C MP #### [facility] [address] [place] [address] Dianne Mame Protein mass conc 7.7 g/dL Normal 6.1-8.2 [facility] Comment on above: Performed By: #### C MP #### [facility] [address] [address] Dianne Mame Sodium molar conc 135 mmol/L Critically low 137-145 [facility] Comment on above: Performed By: #### C MP #### [facility] [address] [id number] Dainne Mame Urea nitrogen mass conc 9.0 mg/dL Normal 6.4-19.3 [facility] Comment on above: Performed By: #### C MP #### [facility] [address] [place], [place] [id number] Dianne Mame Urea nitrogen/Creatinine mass ratio 14.1 mg/mg Normal [facility] Comment on above: Performed By: #### C MP #### [facility] [address] [place], [place] [id number] Dianne Mame Vital Signs Date Time Vital Sign Value Performing Clinician Carmen salazar 05-27-2023 11:20-0500 Body temperature 97.52 [degF] Michael Hannah [facility] 05-27-2023 11:20-0500 Diastolic blood pressure 84 mm[Hg] [facility] 05-27-2023 11:20-0500 Heart rate 61 /min [facility] 05-27-2023 11:20-0500 Respiratory rate 20 /min [facility] 05-27-2023 11:20-0500 SaO2% (BldA) [Mass fraction] 99 % [facility] 05-27-2023 11:20-0500 Systolic blood pressure 124 mm[Hg] [facility] 05-26-2023 16:14-0500 Body mass index (BMI) [Ratio] 21.86 kg/m2 Bella Camara MD Work Phone: [facility] 05-26-2023 16:14-0500 Body temperature 98.6 [degF] Bella Camara MD Work Phone: [facility] 05-26-2023 16:14-0500 Body weight 67.13 kg Bella Camara MD Work Phone: [facility] 05-26-2023 16:14-0500 Diastolic blood pressure 78 mm[Hg] Bella Camara MD Work Phone: [facility] 05-26-2023 16:14-0500 Heart rate 71 /min Bella Camara MD Work Phone: [facility] 05-26-2023 16:14-0500 SaO2% (BldA) [Mass fraction] 100 % Bella Camara MD Work Phone: [facility] 05-26-2023 16:14-0500 Systolic blood pressure 118 mm[Hg] Bella Camara MD Work Phone: [facility] 05-24-2023 15:36-0500 Body height 175.3 cm Elisabet Giron NP [facility] 05-24-2023 15:36-0500 Body mass index (BMI) [Ratio] 21.86 kg/m2 Elisabet Giron NP [facility] 05-24-2023 15:36-0500 Body temperature 98.4 [degF] Elisabet Giron [employer] T[employer] MA[employer] [facility] 05-24-2023 15:36-0500 Body weight 67.13 kg Elisabet Giron [employer]ATIONAL TAX MANAGER [facility] 05-24-2023 15:36-0500 Diastolic blood pressure 72 mm[Hg] Elisabet Giron [employer]ATIONAL TAX MANAGER [facility] 05-24-2023 15:36-0500 Heart rate 109 /min Elisabet Giron [employer]ATIONAL TAX MANAGER [facility] 05-24-2023 15:36-0500 SaO2% (BldA) [Mass fraction] 99 % Elisabet Giron [employer]ATIONAL TAX MANAGER [facility] 05-24-2023 15:36-0500 Systolic blood pressure 112 mm[Hg] Elisabet Giron INTERNATIONAL TAX MANAGER [facility] 05-19-2023 14:22-0500 Body height 175.3 cm [facility] Work Phone: [facility] 05-19-2023 14:22-0500 Body mass index (BMI) [Ratio] 21.71 kg/m2 [facility] Work Phone: [facility] 05-19-2023 14:22-0500 Body temperature 97.59 [degF] [facility] Work Phone: [facility] 05-19-2023 14:22-0500 Body weight 66.68 kg [facility] Work Phone: [facility] 05-17-2023 15:37-0500 Body height 175.3 cm Miracle Padilla MD Work Phone: [facility] 05-17-2023 15:37-0500 Body mass index (BMI) [Ratio] 21.56 kg/m2 Miracle Padilla MD Work Phone: [facility] 05-17-2023 15:37-0500 Body weight 66.22 kg Miracle Padilla MD Work Phone: [facility] 05-17-2023 15:37-0500 Diastolic blood pressure 70 mm[Hg] Miracle Padilla MD Work Phone: [facility] 05-17-2023 15:37-0500 Heart rate 71 /min Miracle Padilla MD Work Phone: [facility] 05-17-2023 15:37-0500 SaO2% (BldA) [Mass fraction] 98 % Miracle Padilla MD Work Phone: [facility] 05-17-2023 15:37-0500 Systolic blood pressure 112 mm[Hg] Miracle Padilla MD Work Phone: [facility] 05-12-2023 11:26-0500 Body height 175.3 cm Miracle Padilla MD Work Phone: [facility] 05-12-2023 11:26-0500 Body mass index (BMI) [Ratio] 21.71 kg/m2 Miracle Padilla MD Work Phone: [facility] 05-12-2023 11:26-0500 Body temperature 98.01 [degF] Miracle Padilla MD Work Phone: [facility] 05-12-2023 11:26-0500 Body weight 66.68 kg Miracle Padilla MD Work Phone: [facility] 05-12-2023 11:26-0500 Diastolic blood pressure 68 mm[Hg] Miracle Padilla MD Work Phone: [facility] 05-12-2023 11:26-0500 Heart rate 65 /min Miracle Padilla MD Work Phone: [facility] 05-12-2023 11:26-0500 SaO2% (BldA) [Mass fraction] 99 % Miracle Padilla MD Work Phone: [facility] 05-12-2023 11:26-0500 Systolic blood pressure 106 mm[Hg] Miracle Padilla MD Work Phone: [facility] 11-10-2022 19:03-0400 Diastolic blood pressure 89 mm[Hg] [facility] 11-10-2022 19:03-0400 Heart rate 53 /min [facility] 11-10-2022 19:03-0400 Mean blood pressure 99 mm[Hg] [facility] 11-10-2022 19:03-0400 Respiratory rate 16 /min [facility] 11-10-2022 19:03-0400 SaO2% (BldA) [Mass fraction] 99 % [facility] 11-10-2022 19:03-0400 Systolic blood pressure 120 mm[Hg] [facility] 11-10-2022 18:15-0400 Diastolic blood pressure 83 mm[Hg] [facility] 11-10-2022 18:15-0400 Heart rate 52 /min [facility] 11-10-2022 18:15-0400 Mean blood pressure 96 mm[Hg] [facility] 11-10-2022 18:15-0400 Respiratory rate 16 /min [facility] 11-10-2022 18:15-0400 SaO2% (BldA) [Mass fraction] 100 % [facility] 11-10-2022 18:15-0400 Systolic blood pressure 122 mm[Hg] [facility] 11-10-2022 17:16-0400 Diastolic blood pressure 80 mm[Hg] [facility] 11-10-2022 17:16-0400 Heart rate 57 /min [facility] 11-10-2022 17:16-0400 Mean blood pressure 93 mm[Hg] [facility] 11-10-2022 17:16-0400 Respiratory rate 16 /min [facility] 11-10-2022 17:16-0400 SaO2% (BldA) [Mass fraction] 100 % [facility] 11-10-2022 17:16-0400 Systolic blood pressure 119 mm[Hg] [facility] 11-10-2022 17:10-0400 Hourly Rounding [facility] 11-10-2022 [id number] Promise to Return [facility] 11-10-2022 16:06-0400 Body temperature 97.88 [degF] [facility] 11-10-2022 16:06-0400 Heart rate 66 /min [facility] 11-10-2022 16:06-0400 Respiratory rate 16 /min [facility] 04-13-2022 00:12-0500 Diastolic blood pressure 61 mm[Hg] DO Phillip Petznick Work Phone: [phone] [place] [address] 04-13-2022 00:12-0500 Heart rate 75 /min DO Phillip Petznick Work Phone: 2(693)[phone] [place] [address] 04-13-2022 00:12-0500 Respiratory rate 18 /min DO Phillip Petznick Work Phone: [facility] 04-13-2022 00:12-0500 SaO2% (BldA) [Mass fraction] 98 % DO Phillip Petznick Work Phone: [facility] 04-13-2022 00:12-0500 Systolic blood pressure 120 mm[Hg] DO Phillip Petznick Work Phone: [facility] 04-12-2022 22:49-0500 Body height 175.26 cm DO Phillip Petznick Work Phone: [facility] 04-12-2022 22:49-0500 Body temperature 101.4 [degF] DO Phillip Petznick Work Phone: [facility] 04-12-2022 22:49-0500 Body weight 61 kg DO Phillip Petznick Work Phone: [facility] 04-07-2022 23:14-0500 Body height 175.26 cm DO Phillip Petznick Work Phone: [facility] 04-07-2022 23:14-0500 Body temperature 98.7 [degF] DO Phillip Petznick Work Phone: [facility] 04-07-2022 23:14-0500 Body weight 69 kg DO Phillip Petznick Work Phone: [facility] 04-07-2022 23:14-0500 Diastolic blood pressure 67 mm[Hg] DO Phillip Petznick Work Phone: [facility] 04-07-2022 23:14-0500 Heart rate 110 /min DO Phillip Petznick Work Phone: [facility] 04-07-2022 23:14-0500 Respiratory rate 16 /min DO Phillip Petznick Work Phone: [facility] 04-07-2022 23:14-0500 SaO2% (BldA) [Mass fraction] 99 % DO Phillip Petznick Work Phone: [facility] 04-07-2022 23:14-0500 Systolic blood pressure 112 mm[Hg] DO Phillip Petznick Work Phone: [facility] Encounters Encounter Date Encounter Type Care Provider Facility Start: 09-30-2023 End: 09-30-2023 ambulatory ABIGAIL TREJO Not Available Start: 09-23-2023 End: 09-24-2023 ambulatory TREY ALVARADO Not Available Start: 09-22-2023 End: 09-22-2023 ambulatory BELLA CAMARA Not Available Start: 09-17-2023 End: 09-17-2023 ambulatory ASHLIE FREEMAN Not Available Start: 09-15-2023 End: 09-15-2023 ambulatory GRAZYNA GONZALEZ Not Available Start: 09-13-2023 End: 09-13-2023 ambulatory SHALA CONN Not Available Start: 09-07-2023 End: 09-07-2023 ambulatory TREY ALVARADO Not Available Start: 09-03-2023 End: 09-03-2023 ambulatory ASHLIE FREEMAN Not Available Start: 08-27-2023 End: 08-27-2023 ambulatory KHOA RODRIGUEZ Not Available Start: 08-25-2023 End: 08-25-2023 ambulatory ASHLIE FREEMAN Not Available Start: 08-24-2023 End: 08-24-2023 ambulatory ASHLIE FREEMAN Not Available Start: 08-20-2023 End: 08-20-2023 ambulatory TREY ALVARADO Not Available Start: 08-19-2023 End: 08-19-2023 ambulatory KHOA RODRIGUEZ Not Available Start: 08-10-2023 End: 08-10-2023 ambulatory GRAZYNA Shaw GONZALEZ Not Available Start: 08-05-2023 End: 08-05-2023 ambulatory GRAZYNA Shaw GONZALEZ Not Available Start: 08-03-2023 End: 08-03-2023 ambulatory GRAZYNA Shaw GONZALEZ Not Available Start: 08-02-2023 End: 08-02-2023 ambulatory BELLA CAMARA Not Available Start: 07-27-2023 End: 07-27-2023 ambulatory KHOA RODRIGUEZ Not Available Start: 07-08-2023 End: 07-08-2023 ambulatory BACILIO Al ALLSOP Not Available Start: 07-05-2023 End: 07-05-2023 ambulatory BELLA CAMARA Not Available Start: 06-24-2023 End: 06-24-2023 ambulatory KHOA RODRIGUEZ Not Available Start: 06-21-2023 End: 06-21-2023 ambulatory SHALA D HILLS Not Available Start: 06-17-2023 End: 06-17-2023 ambulatory SHALA D HILLS Not Available Start: 06-10-2023 End: 06-10-2023 ambulatory MIRACLE PADILLA Not Available Start: 05-31-2023 End: 05-31-2023 ambulatory ELISABET GIRON Not Available Start: 05-27-2023 End: 05-27-2023 Emergency department patient visit Michael Hannah Facility:[facility] Start: 05-27-2023 End: 05-27-2023 [facility] Start: 05-26-2023 End: 05-26-2023 Patient encounter procedure Bella Camara MD Work Phone: [facility] Comment on above: Anxiety Start: 05-26-2023 End: 05-26-2023 ambulatory BELLA CAMARA Not Available Start: 05-25-2023 End: 05-26-2023 ambulatory SHELLY SCOTT Not Available Start: 05-25-2023 Bamboo flowsheet Shelly Wisdoman s PT Work Phone: [facility] Start: 05-25-2023 Bamboo flowsheet Shelly March Chase s PT Work Phone: [facility] Start: 05-24-2023 End: 05-24-2023 Patient encounter procedure Elisabet Peterr [employer] MA[employer]GER [facility] Comment on above: Nasal injury, initia l encounter (Primary Dx); Generalized headache; BMI 21.0-21.9, adult Start: 05-24-2023 End: 05-24-2023 ambulatory ELISABET SOUSAILLEBatsheva Not Available Start: 05-24-2023 Bamboo flowsheet Elisabetmirza grajedar INTERNATIONAL TAX MANAGER [facility] Start: 05-24-2023 Bamboo flowsheet Elisabet A Don namiller INTER[employer]ATIONAL TAX MANAGER [facility] Start: 05-19-2023 End: 05-19-2023 Patient encounter procedure Shala Conn PA Work Phone: [facility] Comment on above: It band syndrome, ri ght (Primary Dx); Right hip pain; Trochanteric bursitis of right hip Start: 05-19-2023 End: 05-19-2023 ambulatory SHALA CONN Not Available Start: 05-17-2023 End: 05-17-2023 Office outpatient visit 15 minutes Miracle Padilla MD Work Phone: [facility] Comment on above: Trochanteric bursiti s of right hip (Primary Dx) Start: 05-17-2023 End: 05-17-2023 ambulatory MIRACLE PADILLA Not Available Start: 05-12-2023 End: 05-12-2023 Office outpatient visit 15 minutes Miracle Padilla MD Work Phone: [facility] Comment on above: Trochanteric bursiti s of right hip (Primary Dx); Levoscoliosis Start: 05-12-2023 End: 05-12-2023 ambulatory MIRACLE PADILLA Not Available Start: 05-05-2023 End: 05-05-2023 ambulatory BELLA M HOA Not Available Start: 04-15-2023 End: 04-15-2023 ambulatory ELISABET A DONNAMILLER Not Available Start: 04-01-2023 End: 04-01-2023 ambulatory BELLA Colin HOA Not Available Start: 03-26-2023 End: 03-26-2023 ambulatory Grabiel Castellanos Facility:[facility] Start: 03-17-2023 End: 03-17-2023 ambulatory BELLA Colin HOA Not Available Start: 03-02-2023 End: 03-02-2023 ambulatory ELISABET A DONNAMILLER Not Available Start: 02-26-2023 End: 02-26-2023 ambulatory GRAZYNA GONZALEZ Not Available Start: 11-10-2022 End: 11-10-2022 Emergency department patient visit Michael Hannah Facility:[facility] Start: 11-10-2022 End: 11-10-2022 [facility] Start: 04-13-2022 End: 04-13-2022 Emergency department patient visit Phillip Shaw Facility:[facility] Start: 04-12-2022 End: 04-13-2022 Emergency department patient visit DO Phillip Englandhafsarodrigo Work Phone: [facility] Work Phone: Start: 04-08-2022 End: 04-08-2022 Emergency department patient visit Taran Rea Facility:[facility] Start: 04-07-2022 End: 04-08-2022 Emergency department patient visit DO Phillip Petdutch Work Phone: [facility] Work Phone: Start: 09-10-2018 End: 09-10-2018 Patient encounter procedure DOCTOR MISC Facility: Procedures Date Procedure Procedure Detail Performing Clinician Start: 05-19-2023 End: 05-19-2023 Radex spine lumbosacral minimum 4 views Shala TOPETE Work Phone: Start: 04-07-2022 SARS-CoV-2, Influenz a & RSV (PCR) DO Phillip Tripp Work Phone: Plan of Treatment Date Care Activity Detail Author Start: 06-11-2023 End: 06-11-2023 ambulatory 06/11/2023 3:30 PM EST Treatment [facility] [address] [facility] [place] [id number] Shelly Scott, PT [address] [facility] [place], [place] [id number] [facility] Start: 06-04-2023 End: 06-04-2023 ambulatory 06/04/2023 4:15 PM EST Treatment [facility] [address] [place] [address] Shelly Scott, PT [address] [facility] [place], [place] [id number] [facility] Start: 05-25-2023 End: 05-25-2023 ambulatory [facility] Comment on above: It band syndrome, ri ght; Trochanteric bursitis of right hip Start: 05-24-2023 End: 05-24-2023 Patient encounter procedure 05/24/2023 3:30 PM EST Office Visit [facility] [address] [place] [id number] Elisabet Giron, INTERNATIONAL TAX MANAGER Arrived [facility] Comment on above: Arrived Start: 04-12-2022 Plain chest X-ray XR chest 1V portab [facility] Start: 04-12-2022 XR Chest Single view [facility] Patient Education [facility] Work Phone: Patient referral [facility] Work Phone: Immunizations Immunization Date Immunization Notes Care Provider Fa [facility] 02-19-2023 influenza, injectabl e, quadrivalent, contains preservative Shala TOPETE Work Phone: [facility] 01-15-2020 influenza, injectabl e, quadrivalent, preservative free [facility] Work Phone: [facility] 01-26-2019 influenza, injectabl e, quadrivalent, preservative free [facility] Work Phone: [facility] 01-26-2019 tetanus toxoid, redu baltazar diphtheria toxoid, and acellular pertussis vaccine, adsorbed [facility] Work Phone: [facility] 06-21-2018 tetanus toxoid, redu baltazar diphtheria toxoid, and acellular pertussis vaccine, adsorbed [facility] 06-06-2018 influenza, injectabl e, quadrivalent, preservative free [facility] 01-22-2011 influenza, seasonal, injectable, preservative free [facility] Work Phone: [facility] 01-22-2011 meningococcal polysaccharide (groups A, C, Y and W-135) diphtheria toxoid conjugate vaccine (MCV4P) [facility] Work Phone: [facility] 01-22-2011 tetanus toxoid, redu baltazar diphtheria toxoid, and acellular pertussis vaccine, adsorbed [facility] Work Phone: [facility] 02-16-2009 novel [id number], preservative-free, injectable [facility] Work Phone: [facility] 01-30-2009 influenza virus vaccine, live, attenuated, for intranasal use [facility] Work Phone: [facility] 02-03-2008 influenza, seasonal, injectable [facility] Work Phone: [facility] 03-01-2007 influenza virus vaccine, whole virus [facility] Work Phone: [facility] 07-24-2003 diphtheria, tetanus toxoids and acellular pertussis vaccine [facility] Work Phone: [facility] 07-24-2003 measles, mumps and rubella virus vaccine [facility] Work Phone: [facility] 07-24-2003 poliovirus vaccine, inactivated [facility] Work Phone: [facility] 03-22-2003 influenza, seasonal, injectable Shala Dilworth PA Work Phone: [facility] 09-30-2000 pneumococcal conjuga te vaccine, [address] [facility] Work Phone: [facility] 04-08-2000 influenza, seasonal, injectable [facility] Work Phone: [facility] 02-12-2000 influenza virus vaccine, whole virus [facility] Work Phone: [facility] 10-17-1999 diphtheria, tetanus toxoids and acellular pertussis vaccine, unspecified formulation [facility] Work Phone: [facility] 10-17-1999 haemophilus influenz ae type b vaccine, conjugate unspecified formulation [facility] Work Phone: [facility] 10-17-1999 measles, mumps and rubella virus vaccine [facility] Work Phone: [facility] 05-14-1999 poliovirus vaccine, inactivated [facility] Work Phone: [facility] 04-10-1999 diphtheria, tetanus toxoids and acellular pertussis vaccine, unspecified formulation [facility] Work Phone: [facility] 04-10-1999 haemophilus influenz ae type b vaccine, conjugate unspecified formulation [facility] Work Phone: [facility] 04-10-1999 hepatitis B vaccine, pediatric or pediatric/adolescent dosage [facility] Work Phone: [facility] 04-10-1999 trivalent poliovirus vaccine, live, oral [facility] Work Phone: [facility] 01-29-1999 diphtheria, tetanus toxoids and acellular pertussis vaccine, unspecified formulation [facility] Work Phone: [facility] 01-29-1999 haemophilus influenz ae type b vaccine, conjugate unspecified formulation [facility] Work Phone: [facility] 01-29-1999 poliovirus vaccine, inactivated [facility] Work Phone: [facility] 1998 diphtheria, tetanus toxoids and acellular pertussis vaccine, unspecified formulation [facility] Work Phone: [facility] 1998 haemophilus influenz ae type b vaccine, conjugate unspecified formulation [facility] Work Phone: [facility] 1998 hepatitis B vaccine, pediatric or pediatric/adolescent dosage [facility] Work Phone: [facility] 1998 poliovirus vaccine, inactivated [facility] Work Phone: [facility] 1998 hepatitis B vaccine, pediatric or pediatric/adolescent dosage [facility] Work Phone: [facility] NEGATED: Highlighted row has not occurred!03-03-2019 tetanus toxoid, reduced diphtheria toxoid, and acellular pertussis vaccine, adsorbed DO Phillip Manirodrigo Work Phone: [facility] Payers Date Payer Category Payer Unknown [employer] [address] [employer] [id number] 2022-Present [address] [place] [address] [id number] 2022 Unknown [id number] 2022 Private Health Insurance [id number] 2022 Self-pay [id number] 1998 Unknown [id number] 2.16.840.1.644957.3.579.2 .593 1998 Unknown [id number] 2.16.840.1.623821.3.579.2 .727 1998 Unknown [id number] 2.16.840.1.309258.3.579.2 .727 1998 Unknown [id number] 2.16.840.1.728712.3.579.2 .1259 1998 Unknown [id number] 2.16.840.1.405797.3.579.2 .1258 1998 Unknown [id number] 2.16.840.1.991793.3.579.2 .1258 1998 Unknown [id number] 2.16.840.1.465439.3.579.2 .1258 1998 Unknown [id number] 2.16.840.1.971602.3.579.2 .1258 1998 Unknown [id number] 2.16.840.1.357851.3.579.2 .1258 1998 Unknown [id number] 2.16.840.1.272866.3.579.2 .1258 1998 Unknown [id number] 2.16.840.1.330628.3.579.2 .1258 1998 Unknown [id number] 2.16.840.1.453952.3.579.2 .1258 1998 Unknown [id number] 2.16.840.1.531944.3.579.2 .1258 1998 Unknown [id number] 2.16.840.1.896075.3.579.2 .1258 1998 Unknown [id number] 2.16.840.1.801644.3.579.2 .1258 1998 Unknown [id number] 2.16.840.1.109221.3.579.2 .1258 1998 Unknown [id number] 2.16.840.1.675418.3.579.2 .1258 1998 Unknown [id number] 2.16.840.1.982243.3.579.2 .1258 1998 Unknown [id number] 2.16.840.1.531436.3.579.2 .1258 1998 Unknown [id number] 2.16.840.1.522261.3.579.2 .1258 1998 Unknown [id number] 2.16.840.1.829412.3.579.2 .1258 1998 Unknown [id number] 2.16.840.1.179637.3.579.2 .1258 1998 Unknown [id number] 2.16.840.1.933485.3.579.2 .1258 1998 Unknown [id number] 2.16.840.1.960999.3.579.2 .1258 1998 Unknown [id number] 2.16.840.1.981548.3.579.2 .1258 1998 Unknown [id number] 2.16.840.1.952603.3.579.2 .1258 1998 Unknown [id number] 2.16.840.1.750118.3.579.2 .1258 1998 Unknown [id number] 2.16.840.1.891859.3.579.2 .1258 1998 Unknown [id number] 2.16.840.1.299740.3.579.2 .1258 1998 Unknown [id number] 2.16.840.1.083949.3.579.2 .1258 1998 Unknown [id number] 2.16.840.1.915520.3.579.2 .1258 1998 Unknown [id number] 2.16.840.1.066635.3.579.2 .1258 1998 Unknown [id number] 2.16.840.1.677151.3.579.2 .1258 1998 Unknown [id number] 2.16.840.1.638667.3.579.2 .1258 1998 Unknown [id number] 2.16.840.1.414904.3.579.2 .1258 1998 Unknown [id number] 2.16.840.1.397897.3.579.2 .1258 1998 Unknown [id number] 2.16.840.1.553010.3.579.2 .1258 1998 Unknown [id number] 2.16.840.1.457145.3.579.2 .9 1998 Unknown [id number] 2.16.840.1.384120.3.579.2 .9 1998 Unknown [id number] 2.16.840.1.064252.3.579.2 .9 1998 Unknown [id number] 2.16.840.1.933087.3.579.2 .9 1998 Unknown [id number] 2.16.840.1.624860.3.579.2 .9 1998 Unknown [id number] 2.16.840.1.278053.3.579.2 .9 1998 Unknown [id number] 2.16.840.1.971561.3.579.2 .9 1998 Unknown [id number] 2.16.840.1.592862.3.579.2 .9 1998 Unknown [id number] 2.16.840.1.344162.3.579.2 .1259 1959 Unknown [id number] Unknown [id number] Unknown [id number] Unknown [id number] Worker's Compensation [employer] Misc [id number] Social History Date Type Detail Facility Tobacco smoking stat [facility] Unknown if ever smoked [facility] Start: 2000 Sex Assigned At Female F [facility] Start: 04-08-2022 End: 04-12-2022 Tobacco smoking status NHIS Smoker (finding) [facility] Start: 11-10-2022 Tobacco smoking status Heavy t obacco smoker (finding) [facility] Start: 10-14-2022 End: 03-02-2023 Sex Assigned At Female Dustin Wisdom [facility] Start: 04-12-2014 End: 05-19-2023 Tobacco smoking status NHIS Smokes tobacco daily [facility] Start: 04-12-2014 History of tobacco use Cigarette Smo ker [facility] Start: 10-14-2022 End: 05-19-2023 Cigarettes smoked current (pack per day) - Reported 0.3 [facility] Start: 12-19-2022 End: 05-19-2023 Tobacco use and exposure Smokeless tobacco non-user [facility] Start: 05-19-2023 End: 05-26-2023 Alcohol intake Ex-drinker (finding) [facility] Within the last year , have you been afraid of your partner or ex-partner? No [facility] How often do you att end latter day or scientology services? Patient refused [facility] Are you now , , , , never or living with a partner? Living with partner [facility] How often to you hav e a drink containing alcohol? 2-4 times a month [facility] How many standard drinks containing alcohol do you have on a typical day? 5 or 6 [facility] How often do you hav e 6 or more drinks on 1 occasion? Monthly [facility] Do you feel stress - tense, restless, nervous, or anxious, or unable to sleep at night because your mind is troubled all the time - these days [OSQ] To some extent [facility] (I/We) worried wheth er (my/our) food would run out before (I/we) got money to buy more. Never true [facility] Start: 11-30-2022 Alcohol Comment 1-2 drinks les s than monthly in the past year, Caffeine intake: 3-4 cups per day occasional, soda/pop [facility] Start: 2000 Sex Assigned At Not on file [facility] Goals Date Patient Goal Desired Activity /State Functional Status Date Assessment Result Facility 05-27-2023 Functional Status N/A [facility] 11-10-2022 Functional Status N/A [facility] Clinical Notes 09-05-2021 to 05-27-2023 Note Date & Type Note Facility 05-27-2023 Hospital Discharg e instructions Patient Education 05/27/2023 13:04:44 Knee Sprain, Adult Knee Sprain, Adult A knee sprain is a stretch or tear in a knee ligament. Knee ligaments are tissues that connect bones in the knee to each other. What are the causes? This condition often results from: A fall. An injury to the knee. What are the signs or symptoms? Symptoms of this condition include: Trouble straightening or bending the leg. Swelling in the knee. Bruising around the knee. Tenderness or pain in the knee. Muscle spasms around the knee. How is this diagnosed? This condition may be diagnosed based on: A physical exam. A history of what happened just before you started to have symptoms. Tests, including: ?An X-ray. This may be done to make sure no bones are broken. ?An MRI. This may be done to check if the ligament is torn. ?Stress testing of the knee. This may be done to check ligament damage. How is this treated? Treatment for this condition may involve: Keeping the knee still (immobilized) with a cast, brace, or splint. Applying ice to the knee. This helps with pain and swelling. Raising (elevating) the knee above the level of your heart when you are resting. This helps with pain and swelling. Taking medicine for pain. Doing exercises to prevent or limit permanent weakness or stiffness in your knee. Having surgery to reconnect the ligament to the bone or to reconstruct it. This may be needed if the ligament is completely torn. Follow these instructions at home: If you have a splint or brace: Wear it as told by your health care provider. Remove it only as told by your health care provider. Check the skin around it every day. Tell your health care provider about any concerns. Loosen it if your toes tingle, become numb, or turn cold and blue. Keep it clean and dry. If you have a cast: Do not stick anything inside it to scratch your skin. Doing that increases your risk of infection. Check the skin around it every day. Tell your health care provider about any concerns. You may put lotion on dry skin around the edges of the cast. Do not put lotion on the skin underneath the cast. Keep it clean and dry. Bathing If you have a splint, brace, or cast that is not waterproof: Do not let it get wet. Cover it with a watertight covering when you take a bath or a shower. Managing pain, stiffness, and swelling If directed, put ice on the injured area. To do this: ?If you have a removable splint or brace, remove it as told by your health care provider. ?Put ice in a plastic bag. ?Place a towel between your skin and the bag or between your cast and the bag. ?Leave the ice on for 20 minutes, 2 3 times a day. Move your toes often to reduce stiffness and swelling. Elevate the injured area above the level of your heart while you are sitting or lying down. General instructions Take [id number] and prescription medicines only as told by your health care provider. Do not use any products that contain nicotine or tobacco, such as cigarettes, e-cigarettes, and chewing tobacco. These can delay healing. If you need help quitting, ask your health care provider. Do exercises as told by your health care provider. Keep all follow-up visits as told by your health care provider. This is important. Contact a health care provider if: You have pain that gets worse. The cast, brace, or splint does not fit right. The cast, brace, or splint gets damaged. Get help right away if: You cannot use your injured knee to support any of your body weight (cannot bear weight). You cannot move the injured joint. You cannot walk more than a few steps without pain or without your knee buckling. You have significant pain, swelling, or numbness in the leg below the cast, brace, or splint. Your foot or toes are numb, cold, or blue after loosening your splint or brace. Summary A knee sprain is a stretch or tear in a knee ligament that usually occurs as the result of a fall or injury. Treatment may involve immobilizing the knee with a cast, splint, or brace and then doing exercises. If the ligament is completely torn, it may require surgery to repair or replace the injured ligament. This information is not intended to replace advice given to you by your health care provider. Make sure you discuss any questions you have with your health care provider. Document Revised: 07/06/2022 Document Reviewed: 02/16/2020 [employer] Patient Education 2022 [employer]. Follow Up Care 05/27/2023 11:17:41 With:Russell Chavez Address: [address] [place] [address] [place] [address]- Business (1) When:05/30/2023 12:39:45 [facility] 05-27-2023 Evaluation + Plan note Extrac chalri from: Title:ED Note Author:Pola Purcell PA-C te:05/27/23 Knee sprain (S83.90XA: Sprai n of unspecified site of unspecified knee, initial encounter) Orders: Knee Brace XR Knee Complete 4+ Views Right [facility]02-14-2024 History of Present illness Narrative* Bella Camara MD - 05/26/2023 4:00 PM EST Subjective Patient ID: Maury Collazo is a 22 y.o. female who presents for No chief complaint on file.. HPI Pt here for medication refills. Does have a h/o anx/dep. Is currently on cymbalta and buspar. Is tolerating w/o side effects. Does continue to have residual sx due to increased stress. Review of Systems General: Denies fever, chills fatigue, [place] or weight loss/gain CV: Denies CP, palpitations or swelling in legs Resp: denies cough, SOB or wheezing GI: Denies abd pain/n/v/c/d Skin: Denies rash Neuro: Denies LH or dizziness Objective Blood pressure 118/78, pulse 71, temperature 98.6 F, weight 148 lb, SpO2 100%. Body mass index is 21.86 kg/m . Physical Exam General: alert & oriented, NAD Head: NC/AT Oral Cavity: MMM Skin: warm, dry Heart: RRR, No m/r/g, S1S2 nml Lungs: CTA b/l Abdomen: soft, ND/NT, BS wnl Musculoskeletal: normal gait Extremities: no clubbing, cyanosis or edema Neurological: nonfocal Psych: mood/affect full range Assessment/Plan Diagnoses and all orders for this visit: Anxiety - DULoxetine (Cymbalta) [address] capsule; Take 1 capsule (60 mg) by mouth in the morning. Do not crush or chew. . - busPIRone (Buspar) 10 MG tablet; Take 1 tablet (10 mg) by mouth in the morning and 1 tablet (10 mg) in the evening and 1 tablet (10 mg) before bedtime. - will do a trial of increased dose. Discussed possible side effects and possible further adjustments if necessary. documented in this encounterBoone Hospital [id number] History of Present illness Narrative* Elisabet Giron NP - 05/24/2023 3:30 PM EST Maury Collazo is a 22 y.o. female presents with chief complaint of Facial Injury HPI: Here today for complaints of nasal injury which occurred early this morning. Patient notes 4-year-old son was lying in bed with her, when he sat up and accidentally struck her nose with his head. Notes bloody nose at time of incident, easily controlled with pressure. Does experience blurry vision with staring at computer screen, concerned she may have a concussion. Notes pain when she presses on nose. Does have a generalized headache. Denies loss of consciousness. Denies nausea or vomiting. 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 SUBJECTIVE: ALLERGIES: Allergies Allergen Reactions Cefdinir Other Reaction(s): lip swelling Penicillins Rash MEDICATIONS: Current Outpatient Medications Medication Instructions acetaminophen (Tylenol) 325 MG tablet albuterol HFA 90 mcg/act inhaler 2 puffs, Inhalation, Every 4 hours PRN albuterol 2.5 mg, Nebulization, Every 6 hours PRN busPIRone (BUSPAR) 5 mg, Oral, 2 times daily DULoxetine (CYMBALTA) 60 mg, Oral, Daily, Do not crush or chew. loratadine (CLARITIN) 10 mg, Oral, Daily medroxyPROGESTERone (Depo-Provera) 150 MG/ML suspension prefilled syringe injection syringe 1 mL Intramuscular every 3 months for 30 days meloxicam (MOBIC) 15 mg, Oral, Daily Nebulizer misc 1 each, Does not apply, Every 4 hours predniSONE (Deltasone) 10 MG tablet Take 5 tabs p.o. daily x3 days Take 4 tabs p.o. daily x3 days Take 3 tabs p.o. daily x3 days Take 2 tabs p.o. daily x3 days Take 1 tab p.o. daily x3 days traZODone (DESYREL) 25 mg, Oral, Nightly Varenicline Tartrate, Starter, (Chantix Starting Month ) 0.5 MG X 11 & 1 MG X 42 tablet therapy pack 1 Dose, Oral, 2 times daily REVIEW OF SYMPTOMS: Constitutional: Denies fever or chills, anorexia. EENT: See HPI. Respiratory: Denies cough, wheezing or difficulty breathing. Cardiovascular: Denies chest pain or pressure, shortness of breath. Neurologic: Denies weakness, numbness or tingling. See HPI. OBJECTIVE: Pulse 109, temperature 98.4 F, height 5' 9 , weight 148 lb, SpO2 99%. General: Well developed, well nourished, adult female in no acute distress sitting upright in chair. Head: Normocephalic/atraumatic. Mild discomfort with palpation of bilateral upper orbits, no laxityor deformity noted. Eyes: No conjunctival irritation, pupils symmetric, EOMI without nystagmus. Ears: Grossly normal hearing. Bilateral Tms clear and intact. Surgery to left TM in the past. Nose: No discharge or active bleeding. No obvious deformity along nasal bridge, no laxity felt. Mouth: MMM, talkative. No broken or loose teeth. Neck: Supple. Full range of motion noted, no step-offs. Chest: No distress. Musculoskeletal: Steady gait. Neurologic: Grossly normal. Skin: Skin is warm and dry. Mental Status: Alert and cooperative. ASSESSMENT AND PLAN: Assessment/Plan Diagnoses and all orders for this visit: Nasal injury, initial encounter Discussed the use of acetaminophen / ice therapy for relief of discomfort / inflammation. No activenosebleeds at this time. Did offer x-rays of nasal bones, yet patient declines at this time. If no improvement in discomfort over the next several days, please follow-up provider, would then considerimaging. Generalized headache May utilize acetaminophen for relief of discomfort. Discussed signs/ symptoms of concern and when to seek re-evaluation. BMI 21.0-21.9, adult Maintain a healthy weight. Please Note: Portions of this chart may have been created using voice recognition software. Occasional wrong-word or sound-like substitutions may have occurred due to inherent limitations of the voice recognition software. Please read the chart carefully and recognize, using context, where the sub stitutions have occurred. documented in this encounterBoone Hospital [id number] History of Present illness Narrative* EFREM Mccabe - 05/19/2023 2:30 PM EST GENERAL HISTORY AND PHYSICAL: NAME: Maury Collazo : 2000 HISTORY OF PRESENT ILLNESS: Maury Collazo is an 22 y.o. female is here for orthopedic evaluation right trochanteric hip pain which started abruptly with no specific trauma she has very difficult time tolerating laying on that side or even touching the area. She had been taking anti-inflammatories and was given an injection of cortisone by Dr. Padilla with absolutely no improvement come here for ortho checkup. She is taking meloxicam for the last week with really no improvement. She denies being diabetic. She denies any radicular symptoms or low back pain associated with this, PAST MEDICAL HISTORY: Past Medical History: Diagnosis Date Allergic rhinitis Ankle sprain Anxiety Arthritis Depression (CMS/HCC) Dislocation of finger Fracture of ankle Fracture of hand Fracture of wrist Fracture, foot Headache History of pineal cyst 2014 Knee sprain Migraine (CMS/HCC) Ovarian cyst Personal history of medical treatment Type A positive Psychogenic nonepileptic seizure (CMS/HCC) Ruptured eardrum 2006 Scoliosis Stress fracture Tear of meniscus of knee Wrist sprain PAST SURGICAL HISTORY: Past Surgical History: Procedure Laterality Date ADENOIDECTOMY EAR RECONSTRUCTION Left IUD INSERTION 04/20/2019 Nexplanon insertion OTHER SURGICAL HISTORY Excision of vaginal wall cyst TONSILLECTOMY 2009 TYMPANOSTOMY 2007 VAGINAL DELIVERY 2019 SOCIAL HISTORY: Social History Occupational History Not on file Tobacco Use Smoking status: Every Day Packs/day: 0.25 Years: 10.00 Additional pack years: 0.00 Total pack years: 2.50 Types: Cigarettes Start date: 04/12/2014 Smokeless tobacco: Never Vaping Use Vaping Use: Never used Substance and Sexual Activity Alcohol use: Not Currently Comment: 1-2 drinks less than monthly in the past year, Caffeine intake: 3-4 cups per day occasional, soda/pop Drug use: Never Sexual activity: Yes Partners: Male control/protection: Injection ALLERGIES: Allergies Allergen Reactions Cefdinir Other Reaction(s): lip swelling Penicillins Rash MEDICATIONS: Current Outpatient Medications Medication Instructions acetaminophen (Tylenol) 325 MG tablet albuterol HFA 90 mcg/act inhaler 2 puffs, Inhalation, Every 4 hours PRN albuterol 2.5 mg, Nebulization, Every 6 hours PRN busPIRone (BUSPAR) 5 mg, Oral, 2 times daily DULoxetine (CYMBALTA) 60 mg, Oral, Daily, Do not crush or chew. loratadine (CLARITIN) 10 mg, Oral, Daily medroxyPROGESTERone (Depo-Provera) 150 MG/ML suspension prefilled syringe injection syringe 1 mL Intramuscular every 3 months for 30 days meloxicam (MOBIC) 15 mg, Oral, Daily Nebulizer misc 1 each, Does not apply, Every 4 hours traZODone (DESYREL) 25 mg, Oral, Nightly Varenicline Tartrate, Starter, (Chantix Starting Month ) 0.5 MG X 11 & 1 MG X 42 tablet therapy pack 1 Dose, Oral, 2 times daily REVIEW OF SYSTEMS: Review of Systems General: Denies appetite or significant weight change. Denies fever, chills or night sweats. Denies lightheadedness. ENT: Denies dry mouth, sore throat or swollen glands. Denies difficulty swallowing. Denies ear pain. Respiratory: Denies chest pain, SOB, cough or wheezing. Denies asthma or pneumonia symptoms. Cardiovascular: Denies CP or palpitations. No syncope or dyspnea on exertion. Gastrointestinal: Denies nausea or vomiting. Denies heartburn or abdominal pain. Denies diarrhea. Genitourinary: Denies frequent or painful urination. Musculoskeletal: See HPI for comments. Integumentary: Denies rash, lesion or skin infection. Neurologic: Denies dizziness, headache or seizure history. Vitals: Body mass index is 21.71 kg/m . PHYSICAL EXAM: Physical Exam Patient has point tender over the greater trochanter extends slightly down the IT band but no radicular pain negative straight leg raise no pain associated with internal external rotation the right hip. No evidence of rash or erythema. XR hip right 2 or 3 views Imaging Result: AP pelvis bilateral hip and frog view of the right hip taken in the office today which do not demonstrate any congenital abnormalities with a femoral head or acetabulum no evidence of acute fracture or bony tumor seen. XR lumbar spine complete 4+ views Imaging Result: AP lateral and oblique of the lumbar spine taken in the office which he end demonstrates no change in her thoracolumbar scoliosis she does have noted Schmorl nodes multiple discs and developing some early facet hypertrophy in the lumbar spine Orders Placed This Encounter Procedures XR hip right 2 or 3 views Order Specific Question: Is the patient ? Answer: No Order Specific Question: Reason for exam: Answer: pain XR lumbar spine complete 4+ views Order Specific Question: Is the patient ? Answer: No Order Specific Question: Reason for exam: Answer: pain Ambulatory referral to Physical Therapy Standing Status: Future Standing Expiration Date: 11/17/2023 Referral Priority: Routine Referral Type: Rehabilitation - Outpatient Referral Reason: Specialty Services Required Referred to Provider: Daja Carter PT Requested Specialty: Physical Therapy Number of Visits Requested: 1 XR lumbar spine complete 4+ views Imaging Result: AP lateral and oblique of the lumbar spine taken in the office which he end demonstrates no change in her thoracolumbar scoliosis she does have noted Schmorl nodes multiple discs and developing some early facet hypertrophy in the lumbar spine XR hip right 2 or 3 views Imaging Result: AP pelvis bilateral hip and frog view of the right hip taken in the office today which do not demonstrate any congenital abnormalities with a femoral head or acetabulum no evidence of acute fracture or bony tumor seen. ASSESSMENT: It band syndrome, right Right hip pain Trochanteric bursitis of right hip PLAN: We will try prednisone over the next 15 days starting with 50 mg every 3 days dropping 10 mg until your finished with the taper. Ice to the right trochanteric hip region 20 minutes several times a day and we will start up organized therapy where they can work on ITB band and trochanteric bursal symptoms with ultrasound and stretching. Follow up in 4 weeks if not improved and will consider reinjection of cortisone under ultrasound guidance. EFREM Mccabe documented in this encounterBoone Hospital [id number] Instructions* Patient Instructions* EFREM Mccabe - 05/19/2023 2:30 PM EST We will try prednisone over the next 15 days starting with 50 mg every 3 days dropping 10 mg until your finished with the taper. Ice to the right trochanteric hip region 20 minutes several times a day and we will start up organized therapy where they can work on ITB band and trochanteric bursal symptoms with ultrasound and stretching. Follow up in 4 weeks if not improved and will consider reinjection of cortisone under ultrasound guidance. documented in this encounterBoone Hospital [id number] History of Present illness Narrative* Maame Whitten - 05/17/2023 6:30 PM EST Maury Collazo is a 22 y.o. female presents with chief complaint of hip pain HPI: Pt presents today for right hip pain. She was previously seen for it, has been using ice and meloxicam with some relief. She feels like her left hip is starting to hurt now since she has been favoring the right side. She is requesting a cortisone injection. She states she is going to call [facility], She saw Shala Conn previously. SUBJECTIVE: MEDICATIONS: Current Outpatient Medications Medication Instructions albuterol HFA 90 mcg/act inhaler 2 puffs, Inhalation, Every 4 hours PRN albuterol 2.5 mg, Nebulization, Every 6 hours PRN busPIRone (BUSPAR) 5 mg, Oral, 2 times daily DULoxetine (CYMBALTA) 60 mg, Oral, Daily, Do not crush or chew. ibuprofen 600 mg, Oral, As needed, OTC loratadine (CLARITIN) 10 mg, Oral, Daily medroxyPROGESTERone (Depo-Provera) 150 MG/ML suspension prefilled syringe injection syringe 1 mL Intramuscular every 3 months for 30 days meloxicam (MOBIC) 15 mg, Oral, Daily Nebulizer misc 1 each, Does not apply, Every 4 hours traZODone (DESYREL) 25 mg, Oral, Nightly Varenicline Tartrate, Starter, (Chantix Starting Month ) 0.5 MG X 11 & 1 MG X 42 tablet therapy pack 1 Dose, Oral, 2 times daily ALLERGIES: Allergies Allergen Reactions Cefdinir Other Reaction(s): lip swelling Penicillins Rash REVIEW OF SYMPTOMS: Review of Systems Constitutional: Negative for chills, fatigue and fever. HENT: Negative for congestion, ear pain, sinus pressure, sinus pain, sore throat and trouble swallowing. Eyes: Negative for pain and visual disturbance. Respiratory: Negative for cough, choking, chest tightness, shortness of breath and wheezing. Cardiovascular: Negative. Gastrointestinal: Negative. Genitourinary: Negative. Musculoskeletal: Negative for arthralgias, joint swelling and myalgias. Right hip pain Skin: Negative. Neurological: Negative. Psychiatric/Behavioral: Negative. Endocrine: Negative. OBJECTIVE: Visit Vitals BP 112/70 Pulse 71 Ht 5' 9 Wt 146 lb SpO2 98% BMI 21.56 kg/m OB Status Unknown Smoking Status Every Day BSA 1.8 m Physical Exam Constitutional: Appearance: Normal appearance. HENT: Head: Normocephalic and atraumatic. Eyes: Extraocular Movements: Extraocular movements intact. Cardiovascular: Rate and Rhythm: Normal rate and regular rhythm. Pulmonary: Effort: Pulmonary effort is normal. Breath sounds: Normal breath sounds. Musculoskeletal: General: Normal range of motion. Cervical back: Normal range of motion. Comments: Normal ROM, point tenderness over right greater trochanter. Skin: General: Skin is warm and dry. Neurological: General: No focal deficit present. Mental Status: She is alert. Psychiatric: Mood and Affect: Mood normal. Behavior: Behavior normal. ASSESSMENT AND PLAN: Assessment/Plan Diagnoses and all orders for this visit: Trochanteric bursitis of right hip Will continue current tx plan. Discussed cortisone injection and possible risks including infectionand increased BS. Pt is agreeable. Area cleaned using aseptic technique. Injection of Depo Medrol 40mg and Bupivacaine 1cc given. Pt tolerated this well. Pt will call ortho for an appointment since she is established there. Entered by _Marcela_, acting as scribe for Dr. Oleary_. Signature _Marielos JASSO_ Date _05/17/2023_. The documentation recorded by the scribe accurately reflects the service(s) I personally performed and the decisions I made. documented in this encounterBoone Hospital [id number] History of Present illness Narrative* Maame Fish - 05/12/2023 11:30 AM EST Maury Collazo is a 22 y.o. female presents with chief complaint of right hip pain. HPI: Patient here today for right hip pain that has been ongoing since yesterday morning. She is using Tylenol and Ibuprofen 600 mg without relief. She has been stretching. Pt denies injury. She has also had issues with left hip and back. She saw Dr Rodriguez, he referred her to pain management. She has not seen pain management yet due to costs. Reviewed previous XR/MRI results. Discussed treatment options. SUBJECTIVE: MEDICATIONS: Current Outpatient Medications Medication Instructions albuterol HFA 90 mcg/act inhaler 2 puffs, Inhalation, Every 4 hours PRN albuterol 2.5 mg, Nebulization, Every 6 hours PRN azithromycin (Zithromax) 250 MG tablet Take 2 tabs PO x 1 day then 1 tab PO daily x 4 days busPIRone (BUSPAR) 5 mg, Oral, 2 times daily DULoxetine (CYMBALTA) 60 mg, Oral, Daily, Do not crush or chew. ibuprofen 600 mg, Oral, As needed, OTC loratadine (CLARITIN) 10 mg, Oral, Daily medroxyPROGESTERone (Depo-Provera) 150 MG/ML suspension prefilled syringe injection syringe 1 mL Intramuscular every 3 months for 30 days minocycline 100 mg, Oral, Daily Nebulizer misc 1 each, Does not apply, Every 4 hours traZODone (DESYREL) 25 mg, Oral, Nightly Varenicline Tartrate, Starter, (Chantix Starting Month Alvino) 0.5 MG X 11 & 1 MG X 42 tablet therapy pack 1 Dose, Oral, 2 times daily ALLERGIES: Allergies Allergen Reactions Cefdinir Other Reaction(s): lip swelling Penicillins Rash REVIEW OF SYMPTOMS: Review of Systems Constitutional: Negative for chills, fatigue and fever. HENT: Negative for congestion, ear pain, sinus pressure, sinus pain, sore throat and trouble swallowing. Eyes: Negative for pain and visual disturbance. Respiratory: Negative. Cardiovascular: Negative for chest pain and palpitations. Gastrointestinal: Negative. Genitourinary: Negative. Musculoskeletal: Positive for arthralgias. Negative for joint swelling and myalgias. Skin: Negative. Neurological: Negative for dizziness, weakness, light-headedness and headaches. Psychiatric/Behavioral: Negative. Endocrine: Negative. OBJECTIVE: Visit Vitals BP 106/68 Pulse 65 Temp 98 F Ht 5' 9 Wt 147 lb SpO2 99% BMI 21.71 kg/m OB Status Unknown Smoking Status Every Day BSA 1.8 m Physical Exam Constitutional: Appearance: Normal appearance. HENT: Head: Normocephalic and atraumatic. Eyes: Extraocular Movements: Extraocular movements intact. Cardiovascular: Rate and Rhythm: Normal rate and regular rhythm. Pulmonary: Effort: Pulmonary effort is normal. Breath sounds: Normal breath sounds. Musculoskeletal: General: Normal range of motion. Cervical back: Normal range of motion. Comments: Normal ROM, point tenderness over right greater trochanter. Skin: General: Skin is warm and dry. Neurological: General: No focal deficit present. Mental Status: She is alert. Psychiatric: Mood and Affect: Mood normal. Behavior: Behavior normal. ASSESSMENT AND PLAN: Assessment/Plan Diagnoses and all orders for this visit: Trochanteric bursitis of right hip Assessed. Will avoid cortisone injection for now since pain just started. Meloxicam prescribed, continue to use Tylenol. Advised pt to also use ice. - meloxicam (Mobic) 15 MG tablet; Take 1 tablet (15 mg) by mouth in the morning. Levoscoliosis Reviewed testing. - meloxicam (Mobic) 15 MG tablet; Take 1 tablet (15 mg) by mouth in the morning. Entered by _Marcela_, acting as scribe for Dr. Oleary_. Signature _Marielos JASSO_ Date _05/12/2023_. The documentation recorded by the scribe accurately reflects the service(s) I personally performed and the decisions I made. documented in this encounterBoone [facility] [id number] Hospital Discharge instructions Patient Education 11/10/2022 19:05:26 Shortness of Breath, Adult Shortness of Breath, Adult Shortness of breath is when a person has trouble breathing or when a person feels like she or he ishaving trouble breathing in enough air. Shortness of breath could be a sign of a medical problem. Follow these instructions at home: Pollutants Do not use any products that contain nicotine or tobacco. These products include cigarettes, chewing tobacco, and vaping devices, such as e-cigarettes. This also includes cigars and pipes. If you need help quitting, ask your health care provider. Avoid things that can irritate your airways, including: ?Smoke. This includes campfire smoke, forest fire smoke, and secondhand smoke from tobacco products. Do not smoke or allow others to smoke in your home. ?Mold. ?Dust. ?Air pollution. ?Chemical fumes. ?Things that can give you an allergic reaction (allergens) if you have allergies. Common allergens include pollen from grasses or trees and animal dander. Keep your living space clean and free of mold and dust. General instructions Pay attention to any changes in your symptoms. Take adhl-xnc-eiuqtbv and prescription medicines only as told by your health care provider. This includes oxygen therapy and inhaled medicines. Rest as needed. Return to your normal activities as told by your health care provider. Ask your health care provider what activities are safe for you. Keep all follow-up visits. This is important. Contact a health care provider if: Your condition does not improve as soon as expected. You have a hard time doing your normal activities, even after you rest. You have new symptoms. You cannot walk up stairs or exercise the way that you normally do. Get help right away if: Your shortness of breath gets worse. You have shortness of breath when you are resting. You feel light-headed or you faint. You have a cough that is not controlled with medicines. You cough up blood. You have pain with breathing. You have pain in your chest, arms, shoulders, or abdomen. You have a fever. These symptoms may be an emergency. Get help right away. Call 911. Do not wait to see if the symptoms will go away. Do not drive yourself to the hospital. Summary Shortness of breath is when a person has trouble breathing enough air. It can be a sign of a medical problem. Avoid things that irritate your lungs, such as smoking, pollution, mold, and dust. Pay attention to changes in your symptoms and contact your health care provider if you have a hard time completing daily activities because of shortness of breath. This information is not intended to replace advice given to you by your health care provider. Make sure you discuss any questions you have with your health care provider. Document Revised: 11/15/2021 Document Reviewed: 11/15/2021 Smart Patients Patient Education 2022 [employer]. 11/10/2022 19:05:26 Abdominal Pain, Adult Abdominal Pain, Adult Pain in the abdomen (abdominal pain) can be caused by many things. Often, abdominal pain is not serious and it gets better with no treatment or by being treated at home. However, sometimes abdominal pain is serious. Your health care provider will ask questions about your medical history and do a physical exam to try to determine the cause of your abdominal pain. Follow these instructions at home: Medicines Take yyaa-ihh-leifcvz and prescription medicines only as told by your health care provider. Do not take a laxative unless told by your health care provider. General instructions Watch your condition for any changes. Drink enough fluid to keep your urine pale yellow. Keep all follow-up visits as told by your health care provider. This is important. Contact a health care provider if: Your abdominal pain changes or gets worse. You are not hungry or you lose weight without trying. You are constipated or have diarrhea for more than 2 3 days. You have pain when you urinate or have a bowel movement. Your abdominal pain wakes you up at night. Your pain gets worse with meals, after eating, or with certain foods. You are vomiting and cannot keep anything down. You have a fever. You have blood in your urine. Get help right away if: Your pain does not go away as soon as your health care provider told you to expect. You cannot stop vomiting. Your pain is only in areas of the abdomen, such as the right side or the left lower portion of the abdomen. Pain on the right side could be caused by appendicitis. You have bloody or black stools, or stools that look like tar. You have severe pain, cramping, or bloating in your abdomen. You have signs of dehydration, such as: ?Dark urine, very little urine, or no urine. ?Cracked lips. ?Dry mouth. ?Sunken eyes. ?Sleepiness. ?Weakness. You have trouble breathing or chest pain. Summary Often, abdominal pain is not serious and it gets better with no treatment or by being treated at home. However, sometimes abdominal pain is serious. Watch your condition for any changes. Take rvbj-eqw-tdupgoh and prescription medicines only as told by your health care provider. Contact a health care provider if your abdominal pain changes or gets worse. Get help right away if you have severe pain, cramping, or bloating in your abdomen. This information is not intended to replace advice given to you by your health care provider. Make sure you discuss any questions you have with your health care provider. Document Revised: 05/17/2020 Document Reviewed: 08/07/2019 Smart Patients Patient Education 2022 [employer]. Follow Up Care 11/10/2022 15:59:56 With:Bella Camara Address: [address] [place] [address]- Business (1) When:11/13/2022 18:55:01 Comments:Retrurn to the emergency room if your shortness of breath recurs, abdominal pain recurs or any new symptoms. [facility]08-01-2023 Evaluation + Plan noteExtracted from: Title:ED Note Author:Brielle Varma, Michael Emerson te:11/10/22 1. Abdominal pain (R10.9: Un specified abdominal pain) 2. Shortness of breath (R06.02: Shortness of breath) Orders: Al hydroxide/Mg hydroxide/simethicone, 30 mL, Susp-Oral, Oral, Once, Stop date 11/10/22 18:33:00 EDT, STAT, Start date 11/10/22 18:33:00 EDT atropine/hyoscyamine/PB/scopolamine, 10 mL, Elixir, Oral, Once, Stop date 11/10/22 18:33:00 EDT, STAT, Start date 11/10/22 18:33:00 EDT famotidine, 20 mg = 2 mL, Soln-IV, IV Push, Once, Stop date 11/10/22 17:47:00 EDT, STAT, Start date 11/10/22 17:47:00 EDT, 11/10/22 17:47:00 EDT ketorolac, 30 mg = 1 mL, Injection, IV Push, Once, Stop date 11/10/22 17:42:00 EDT, STAT, Start date 11/10/22 17:42:00 EDT, 11/10/22 17:42:00 EDT promethazine, 25 mg = 1 tab(s), Oral, q6hr, PRN as needed for nausea/vomiting, # 12 tab(s), Refills(s) 0 promethazine, 12.5 mg = 0.5 mL, Injection, IV Push, Once, Stop date 11/10/22 17:42:00 EDT, STAT, Start date 11/10/22 17:42:00 EDT, 11/10/22 17:42:00 EDT sucralfate, 1 gm = 1 tab(s), Oral, QID, X 7 day(s), # 28 tab(s), Refills(s) 0 Automated Diff Basic Metabolic Panel CBC w/ Auto Diff D-Dimer eGFR Extra Blue Tube Extra SST Tube Hepatic Function Panel Lipase Level Troponin 0 Hr. U Beta Hcg Qual UA With Cult Reflex XR Chest Single View [facility]05-27-2022 NoteHISTORY: Mid to lower back pain intermittently. Progressively worsening. And radiating to the right leg. TECHNIQUE: Routine lumbosacral spine MR protocol WITHOUT gadolinium. COMPARISON: Lumbar radiographs 08/21/2021. RESULT: Counting reference: Lumbosacral junction. For the purposes of this report L5-S1 is concerned the level of the iliac crest with partial lumbarization of the S1 vertebral body and small disc space at the S1-S2 level. (see shine image). Alignment: Levoscoliosis, similar to the radiographs. Bone marrow signal/fracture: No evidence of pathologic marrow infiltration. No evidence of prior fracture. Transitional lumbosacral anatomy as above. Multiple small Schmorl's nodes. Conus: The conus is within normal limits of signal intensity and morphology. Paraspinal soft tissues: Paraspinal soft tissues are within normal limits. T12-L1: No significant canal or foraminal narrowing. L1-L2: No significant canal or foraminal narrowing. L2-L3: No significant canal or foraminal narrowing. L3-L4: No significant canal or foraminal narrowing. L4-L5: Broad-based disc bulge. Facet degenerative changes. No significant canal or foraminal narrowing. L5-S1: Disc desiccation. Tiny disc bulge. Facet degenerative changes. No significant canal or foraminal narrowing. Sacrum and iliac wings: The visualized sacrum and iliac wings are within normal limits. The presacral soft tissues are normal in appearance. IMPRESSION: Levoscoliosis. Transitional lumbosacral anatomy as discussed with partial lumbarization of S1. No high-grade canal or foraminal narrowing. No disc herniation. Mild degenerative changes. Report reported and signed by Jonnie Jacob on 09/09/2021 1057[facility]istEvaluation noteNo assessment information availableFirEast Liverpool City Hospital Ctr Work Phone: Evaluation note* Diagnosis It band syndrome, right- Primary Right hip pain Pain in joint, pelvic region and thigh Trochanteric bursitis of right hip documented in this encounter [facility] HealthcareEvaluation note* Diagnosis Trochanteric bursitis of right hip- Primary documented in this encounter [facility] HealthcareEvaluation note* Diagnosis Nasal injury, initial encounter- Primary Generalized headache BMI 21.0-21.9, adult documented in this encounter [facility] HealthcareEvaluation note* Diagnosis Trochanteric bursitis of right hip- Primary Levoscoliosis documented in this encounter [facility] HealthcareEvaluation note* Diagnosis Anxiety Anxiety state, unspecified documented in this encounter [facility] HealthcareHospital course Narrative No data available for this section [facility] Additional Instructions If your symptoms return/worsen or you develop any further concerns or symptoms please see your doctor or return to the emergency department immediately.[facility] Work Phone: Hospital Discharge instructions Additional Instructions Increase your intake of fluids. Take Zofran as prescribed for any nausea. Take Tamiflu to help decrease the duration of symptoms. Take Motrin Tylenol as needed for fever and chest pain. Follow-up with PCP for any persistent symptoms in 5 to 7 days.[facility] Work Phone: Progress note No data available for this section [facility] Summary Purpose Family History No Family History Records FoundNo Family History Records FoundNo Family History Records FoundNo Family History Records FoundNo Family History Records Found No data available for this section No Family History Records FoundNo Family History Records Found Advance Directives No Advanced Directives Records Found Advance Directive Response Recorded Date/ Time Advance Directives No February 08, 2017 12:49pm Assessments No Assessments Information Available Chief Complaint and Reason for Visit Chief Complaint cough, body aches, d ifficulty breathing Chief Complaint cough, body aches, d ifficulty breathing chest pain Reason for Referral Specialty Diagnoses / Procedures Referred By Contac t Referred To Contact Physical Therapy Diagnoses It band syndrome, right Trochanteric bursitis of right hip Procedures [place] OFFICE/OUTPATIENT [facility] 60 MINUTES Shala Conn PA [address] [place] [address] Daja Carter, PT [address] [place] [address] Referral ID Status Reason Start Date Expiration Date Visits Requested Visits Authorized [id number] Pending Review Specialty Services Required 05/19/2023 11/15/2023 1 1 Additional Source Comments INFORMATION SOURCE (unrecogn ized section and content) DATE CREATED AUTHOR 09/14/2018 [facility] DATE CREATED AUTHOR AUTHOR'S ORGANIZ ATION 10/01/2020 [facility] DATE CREATED AUTHOR AUTHOR'S ORGANIZ ATION 10/05/2020 [facility] DATE CREATED AUTHOR AUTHOR'S ORGANIZ ATION 09/09/2021 [facility] dical Specialist DATE CREATED AUTHOR AUTHOR'S ORGANIZ ATION 03/28/2023 [facility] DATE CREATED AUTHOR AUTHOR'S ORGANIZ ATION 05/29/2023 [facility] DATE CREATED AUTHOR AUTHOR'S ORGANIZ ATION 10/02/2023 [facility] dical Specialists EPIC Care Teams (unrecognized sec tion and content) Team Status: Inactive Member Role Status Dates Phillip Tripp , DO Primary Care Provider Active Taran Rea , DO Emergency Provider Active Team Status: Active Member Role Status Dates Phillip Tripp , DO Primary Care Provider Active Team Status: Inactive Member Role Status Dates Phillip Tripp , DO Primary Care Provider Active Phillip Shaw , DO Emergency Provider Active [employer]ic Relationship Specialty Start Date End Date Bella Camara MD [address] [place] [address] PCP - General Family Medicine 09/04/22 Morenita Corona PA [address] [facility] [address] [place] [address] PCP - Medical [employer] 09/10/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 Start Date End Date Bella Camara MD [address] [place] [address] PCP - General Family Medicine 09/04/22 Morenita Corona PA [address] [place] [address] PCP - Medical [employer] 09/10/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 Start Date End Date Bella Camara MD [address] [place] [address] PCP - General Family Medicine 09/04/22 Morenita Corona, PA [address] [place] [address] PCP - Medical [employer] 09/10/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 Start Date End Date Bella Camara MD [address] [place] [address] PCP - General Family Medicine 09/04/22 Morenita Corona PA [address] [place] [address] PCP - Medical [employer] 09/10/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 Start Date End Date Bella Camara MD [address] [place] [address] PCP - General Family Medicine 09/04/22 Morenita Corona PA [address] [place] [address] PCP - Medical [employer] 09/10/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 Start Date End Date Bella Camara MD [address] [place] [address] PCP - General Family Medicine 09/04/22 Morenita Corona PA [address] [place] [address] PCP - [facility] [employer] 09/10/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 Start Date End Date Bella Camara MD [address] [place] [address] PCP - General Family Medicine 09/04/22 Morenita Corona PA [address] [place] [address] PCP - [facility] [employer] 09/10/22 Goals (unrecognized section and content) Goals may be documented in a n alternate sectionGoals may be documented in an alternate section No data available for this section No data available for this section Reason for Visit (unrecogniz ed section and content) Reason Comments Pain Reason Comments Facial Injury Reason Comments Hip Pain FOR RECORDS PERTAINING TO PATIENTS WHO ARE OR HAVE BEEN ENROLLED IN A CHEMICAL DEPENDENCY/SUBSTANCEABUSE PROGRAM, SOME INFORMATION MAY BE OMITTED. This clinical summary was aggregated from multiple sources. Caution should be exercised in using it in the provision of clinical care. This summary normalizes information from multiple sources, and as a consequence, information in this document may materially change the coding, format and clinical context of patient data. In addition, data may be omitted in some cases. CLINICAL DECISIONS SHOULD BE BASED ON THE PRIMARY CLINICAL RECORDS. [facility]. provides no warranty or guarantee of the accuracy or completeness of information in this document.
--- NOTE | 2023-10-07 20:18 | XR_ITS ---
[address] [address] Patient Name: LEYDI SHAH MRN: [id number] date: 2000 Sex: F Assigned Patient Location: ER Current Patient Location: ER Accession/Order Number: [id number] Exam Date: 10/07/2023 20:27 Report Date: 10/07/2023 20:57 At the request of: NICOL WILLS Procedure: XR chest 1V EXAMINATION: XR chest 1V, , 10/07/2023 8:27 PM EDT INDICATION: SOB, cough HISTORY: Ordering Provider Reason for Exam: SOB, cough Technologist Note: Additional: COMPARISON: None. TECHNIQUE: Chest x-ray: One view. FINDINGS: No pneumothorax, pleural effusion or focal airspace consolidation. Heart is normal in size. Bony thorax is unremarkable. XR/XR chest 1V IMPRESSION: No acute cardiopulmonary process. Electronically authenticated by: SIERRA SMALL Date: 10/07/2023 20:57
--- NOTE | 2023-10-07 20:19 | ED.URI1 ---
HPI - URI/Sore Throat General Chief Complaint: Upper Respiratory Infection Stated Complaint: sob, painful inspiration, fatigue, cough Time Seen by Provider: 10/07/23 20:05 Source: patient Limitations: no limitations History of Present Illness HPI Narrative: 23-year-old female presents for 2 to 3-day history of a cough. She is coughing up some phlegm but has not looked at it. She has not had a fever. Her anterior lower ribs are hurting bilaterally. She quit smoking about 2 months ago. Related Data Previous Rx's ?Medication ?Instructions ?Recorded benzonatate 100 mg capsule 100 mg PO TID PRN cough #20 caps 10/07/23 ibuprofen 800 mg tablet 800 mg PO Q8H PRN pain #20 tabs 10/07/23 ondansetron 4 mg disintegrating 4 mg PO Q6H PRN nausea and 10/07/23 tablet vomiting #20 tabs Allergies Allergy/AdvReac Type Severity Reaction Status Date / Time penicillin G Allergy Mild Rash Verified 10/07/23 19:52 cefdinir AdvReac Severe Anaphylaxis Verified 10/07/23 19:52 Review of Systems ROS Narrative A ten point review of systems is negative except as noted above. PFSH PFSH Social History Smoking status: Current every day smoker Exam Narrative Exam Narrative: Nurses note and vital signs reviewed and patient is not hypoxic. General: The patient appears well and in no apparent distress. Patient is resting comfortably on cart. Skin: Warm, dry, no pallor noted. There is no rash noted. Head: Normocephalic, atraumatic Eye: Normal conjunctiva, no drainage Ears, Nose, Mouth, and Throat: oral mucosa is moist. Nares patent. Cardiovascular: Regular Rate and Rhythm Respiratory: Patient is in no distress, no accessory muscle use, lungs are clear to auscultation, no wheezing, rales or rhonchi Back: non-tender GI: Soft and nontender Musculoskeletal: No joint swelling Neurological: Awake and alert Psychiatric: Cooperative Constitutional Vital Signs, click to edit/add: Last Vital Signs Temp 98.2 F 10/07/23 19:53 Pulse 68 10/07/23 19:53 Resp 20 10/07/23 19:53 BP 118/75 10/07/23 19:53 Pulse Ox 98 10/07/23 19:53 O2 Del Method Room Air 10/07/23 19:53 Course Vital Signs Vital signs: Vital Signs Temperature 98.2 F 10/07/23 19:53 Pulse Rate 68 10/07/23 19:53 Respiratory Rate 20 10/07/23 19:53 Blood Pressure 118/75 10/07/23 19:53 Pulse Oximetry 98 10/07/23 19:53 Oxygen Delivery Method Room Air 10/07/23 19:53 Temperature 98.2 F 10/07/23 19:53 Pulse Rate 68 10/07/23 19:53 Respiratory Rate 20 10/07/23 19:53 Blood Pressure 118/75 10/07/23 19:53 Pulse Oximetry 98 10/07/23 19:53 Oxygen Delivery Method Room Air 10/07/23 19:53 MDM - URI/Sore Throat MDM Narrative Medical decision making narrative: Chest x-ray is negative. My clinical impression is that the patient has viral URI. Antibiotic not indicated. Treatment diagnosis and follow-up were discussed with the patient. Differential Diagnosis Differential diagnosis: Likely upper respiratory infection and other (Pneumonia) Imaging Data Chest x-ray: Radiologist's impression: ITS Impressions Chest X-Ray 10/07/23 20:18 IMPRESSION: No acute cardiopulmonary process. Electronically authenticated by: SIERRA SMALL Date: 10/07/2023 20:57 Discharge Plan Discharge Stand Alone Forms: Portal Instructions Chief Complaint: Upper Respiratory Infection Clinical Impression: URI (upper respiratory infection) Patient Disposition: Home, Self-Care Time of Disposition Decision: 21:05 Condition: Good Mode of Transportation: Private Vehicle Prescriptions / Home Meds: New ibuprofen 800 mg tablet 800 mg PO Q8H PRN (Reason: pain) Qty: 20 0RF benzonatate 100 mg capsule 100 mg PO TID PRN (Reason: cough) Qty: 20 0RF ondansetron 4 mg tablet,disintegrating 4 mg PO Q6H PRN (Reason: nausea and vomiting) Qty: 20 0RF Print Language: Icelandic Instructions: Upper Respiratory Infection (ED), Viral Syndrome (ED) Referrals: EUNICE GALE [Primary Care Provider] - 1 week
[2023-10-07] MEDS: ONDANSETRON 4 MG RAPDIS TABLET SL (21:00)
[2023-10-07] MEDS: KETOROLAC TROMETHAMINE 60 MG/2 ML VIAL IM (21:00)
[2023-10-07 21:15] VITALS: BP 119/79; PULSE 80; O2SAT 99
== END 2023-10-07 21:15 | disposition home or self-care (01) ==
PROVIDERS: Emergency Provider Emergency Medicine; PCP Student in an Organized Health Care Education/Training Program
DX: J06.9 Acute upper respiratory infection, unspecified (principal); Z87.891 Personal history of nicotine dependence
CPT/HCPCS: 71045; 99285; J1885; Q0162

== ENCOUNTER 2023-11-27 09:06 | Emergency (ER) | payer SELFPAY ==
[2023-11-27 09:10] VITALS: BP 108/68; PULSE 616; TEMP 36.9; O2SAT 99; BMI 21.5
[2023-11-27 09:20] VITALS: PULSE 61
--- NOTE | 2023-11-27 09:27 | XR_ITS ---
The [address] [address] Patient Name: LEYDI SHAH MRN: [id number] date: 2000 Sex: F Assigned Patient Location: ER Current Patient Location: ED.MAIN Accession/Order Number: [id number] Exam Date: 11/27/2023 10:15 Report Date: 11/27/2023 10:53 At the request of: JAYNE SZYMANSKI Procedure: XR ankle LT min 3V PROCEDURE: XR ankle LT min 3V DATE: 11/27/2023 9:15 AM CDT COMPARISONS: 01/19/2023 CLINICAL INDICATION: ankle injury FINDINGS: There is no evidence of fractures or other osseous abnormalities. The ankle mortise is intact. XR/XR ankle LT min 3V IMPRESSION: Left ankle radiographs show no evidence of abnormalities. Electronically authenticated by: TRI MAGUIRE Date: 11/27/2023 10:53
--- NOTE | 2023-11-27 09:28 | ED_ITS ---
HPI HPI - Extremity Injury (Lower) General Chief Complaint: Extremity Injury, Lower Stated Complaint: LOWER EXTREMITY INJURY Time Seen by Provider: 11/27/23 09:11 Source: patient Mode of arrival: walk-in Limitations: no limitations History of Present Illness HPI Narrative: Pt was tumbling 2 days ago and landed wrong an her left ankle. She developed pain to the medial and lateral left ankle that has persisted since the injury. No meds taken at home. No prior surgery or fracture to the left ankle. She woke with some left knee soreness this morning, attributed to altering her gait since the left ankle injury. No other injuries. Related Data Previous Rx's ?Medication ?Instructions ?Recorded benzonatate 100 mg capsule 100 mg PO TID PRN cough #20 caps 10/07/23 ibuprofen 800 mg tablet 800 mg PO Q8H PRN pain #20 tabs 10/07/23 ondansetron 4 mg disintegrating 4 mg PO Q6H PRN nausea and 10/07/23 tablet vomiting #20 tabs Allergies Allergy/AdvReac Type Severity Reaction Status Date / Time penicillin G Allergy Mild Rash Verified 11/27/23 09:17 cefdinir AdvReac Severe Anaphylaxis Verified 11/27/23 09:17 Opioid HPI Opioid Management Most Recent Pain and Opioid Data: Last Pain Scale 6 11/27/23 09:33 Last MAR Pain Assessment 11/27/23 09:33 [facility] Social History Smoking status: Current every day smoker Exam Narrative Exam Narrative: Nurses notes and vital signs reviewed and patient is not hypoxic. afebrile General: Well-appearing and in no apparent distress. Skin: Warm, dry, no pallor noted. Cardiovascular: Normal peripheral perfusion. Respiratory: No accessory muscle use or respiratory distress. Musculoskeletal: Left foot and ankle with normal ROM, no calf or popliteal tenderness, no lower extremity edema/swelling. Left Achilles is intact. No deformity or swelling of the left foot or ankle noted. No left foot tenderness. She has tenderness to the medial and lateral aspect of the left ankle joint. Neurological: A&O x4. No cranial nerve dysfunction observed. No truncal ataxia. Moves all extremities. Sensation intact. Psychiatric: Cooperative and interactive. Normal mood and affect. Constitutional Vital Signs, click to edit/add: Last Vital Signs Temp 98.4 F 11/27/23 09:10 Pulse 61 11/27/23 09:20 Resp 17 11/27/23 09:10 BP 108/68 11/27/23 09:10 Pulse Ox 99 11/27/23 09:10 O2 Del Method Room Air 11/27/23 09:10 Course Vital Signs Vital signs: Vital Signs Temperature 98.4 F 11/27/23 09:10 Pulse Rate 616 H 11/27/23 09:10 Respiratory Rate 17 11/27/23 09:10 Blood Pressure 108/68 11/27/23 09:10 Pulse Oximetry 99 11/27/23 09:10 Oxygen Delivery Method Room Air 11/27/23 09:10 Temperature 98.4 F 11/27/23 09:10 Pulse Rate 61 11/27/23 09:20 Respiratory Rate 17 11/27/23 09:10 Blood Pressure 108/68 11/27/23 09:10 Pulse Oximetry 99 11/27/23 09:10 Oxygen Delivery Method Room Air 11/27/23 09:10 MDM - Extremity Injury (Lower) MDM Narrative Medical decision making narrative: The patient was given ibuprofen and sent for x-rays of the left ankle. No acute fractures identified. Pt informed of my xray interpretation. ED nurse applied deejay wrap and air stirrup to left ankle. Patient neurovascularly intacct distally afterward. Pt discharged home. Recommend OTC meds for pain, rest, ice, elevation, compression and stirrup support. ED return if not improved after one week. Imaging Data left ankle xrays: Attestation: I personally reviewed and interpreted this imaging study as follows: My impression: NAD Discharge Plan Discharge Stand Alone Forms: Portal Instructions Chief Complaint: Extremity Injury, Lower Clinical Impression: Left ankle sprain Patient Disposition: Home, Self-Care Time of Disposition Decision: 10:55 Prescriptions / Home Meds: No Action ibuprofen 800 mg tablet 800 mg PO Q8H PRN (Reason: pain) Qty: 20 0RF benzonatate 100 mg capsule 100 mg PO TID PRN (Reason: cough) Qty: 20 0RF ondansetron 4 mg tablet,disintegrating 4 mg PO Q6H PRN (Reason: nausea and vomiting) Qty: 20 0RF Print Language: Citizen Of [place] Instructions: Ankle Sprain (ED), Ankle Stirrup Splint (ED) Referrals: EUNICE GALE [Primary Care Provider] - 1 week
[2023-11-27] MEDS: IBUPROFEN 600 MG TABLET PO (09:33)
--- OUTSIDE RECORDS SUMMARY | 2023-11-27 09:36 | XMS_ITS | CCD ---
Author Organization [facility] Care Team Providers Care Turntable Worker Name Role Phone MISC, DOCTOR Primary Care Unavailable SABA SOLO Admitting Unavailable SABA SOLO Attending Unavailable SABA SOLO Consulting Unavailable DO Phillip Tripp Primary Care Provider DO Taran Rea Emergency Provider DO Phillip Shaw Emergency Provider UnaidBella Sky Primary Care Physician [phone] Taran Rea Attending Unavailable Phillip Tripp Primary Care Unavailable Taran Rea Admitting Unavailable Phillip Shaw Admitting Unavailable Phillip Shaw Attending Unavailable Phillip Tripp Primary Care Unavailable Grabiel Castellanos Admitting Unavailable Grabiel Castellanos Attending Unavailable Bella Camara MD Primary Care Provider Morenita Page Unavailable ASHLIE CRANE Attending Unavailable ASHLIE CRANE Admitting Unavailable Michael Hannah Attending Unavailable Michael Hannah Attending Unavailable ELISABET GIRON Attending Unavailab BELLA Dong Attending Unavailable MIRACLE PADILLA Attending Unavailable MIRACLE PADILLA Attending Unavailable SHALA CONN Referring Unavailable SHALA CONN Referring Unavailable SHALA CONN Attending Unavailable SHALA CONN Referring Unavailable GRAZYNA GONZALEZ Attending Unavailable ELISABET GIRON Attending Unavailab SHELLY Zuniga Attending Unavailable SHALA CONN Referring Unavailable BELLA CAMARA Attending Unavailable SHALA CONN Attending Unavailable SHALA CONN Referring Unavailable ELISABET GIORN Attending Unavailab MIRACLE Richardson Attending Unavailable HILLS, SHALA D Referring Unavailable HILLS, SHALA D Attending Unavailable HILLS, SHALA D Referring Unavailable RODRIGUEZ, KHOA T Attending Unavailable DONNAMILLERELISABET Attending Unavailab le HOA, BELLA Shaw Attending Unavailable ALLSOPBACILIO Attending Unavailable RODRIGUEZ, KHOA Gupta Attending Unavailable HOA, BELLA Shaw Attending Unavailable GONZALEZ, GRAZYNA Shaw Attending Unavailable GONZALEZ, GRAZYNA Shaw Attending Unavailable GONZALEZ, GRAZYNA Shaw Attending Unavailable RODRIGUEZ, KHOA Gupta Attending Unavailable MEDVES, TREY Shaw Attending Unavailable RODRIGUEZ, KHOA Gupta Referring Unavailable FREEMAN, ASHLIE Attending Unavailable RODRIGUEZ, KHOA T Referring Unavailable FREEMAN, ASHLIE Attending Unavailable RODRIGUEZ, KHOA Gupta Referring Unavailable RODRIGUEZ, KHOA Gupta Attending Unavailable FREEMAN, ASHLIE Attending Unavailable RODRIGUEZ, [...] MEDVES, TREY Shaw Attending Unavailable RODRIGUEZ, KHOA Gupta Referring Unavailable NEIL, ABIGAIL Prescott Attending Unavailable HOA, BELLA Shaw Referring Unavailable CRANE, ASHLIE March Attending Unavailable PADILLA, MIRACLE Al Attending Unavailable MEDVES, TREY Shaw Attending Unavailable RODRIGUEZ, KHOA Gupta Referring Unavailable PADILLA, MIRACLE Al Attending Unavailable HOA, BELLA Shaw Attending Unavailable PADILLA, MIRACLE Al Attending Unavailable PADILLA, MIRACLE Al Attending Unavailable RODRIGUEZ, KHOA Gupta Attending Unavailable HOA, BELLA Shaw Attending Unavailable Unavailable Unavailable Unavailable Allergies Allergy Classification Reported Allergen(s) Allergy Type Date of Onset Reaction(s) Facility (4 sources) Penicillins Drug allergy (disorder) 4 [facility] Repository (4 sources) Penicillin; Translations: [penicillin] Drug Allergy [facility] (1 source) Penicillins Drug allergy (disorder) 3 [facility] Repository (12 sources) cefdinir Drug Allergy 2 [facility] (12 sources) Penicillins Drug Allergy 1 Rash [facility] (1 source) No Known Medication Allergies; Translations: [No Known Medication Allergies] Propensity to adverse reactions (disorder) [facility] Repository Medications Current Medications Medication Drug [...] hours Ondansetron Active 4 MG PO Q6H 14 April 08, 2022 12:00am oseltamivir 75 mg [...] Active 1 GM PO Twice daily 10 5 April 12, 2022 11:39pm traZODone hydrochloride 50 [...] Discontinued 2 MG BUCCAL Every 2 hours 60 June 09, 2018 12:00am June 21, 2018 [...] mg capsule Discontinued 1 CAP PO Q12H July 19, 2017 11:00pm July 25, 2017 8:23pm administer with a meal/food; swallow whole; do not open, crush, dissolve , or chew Pnv Cmb#[id number]-Ferrous Fumarate-Fa () 28 mg iron- [...] (Phenergan) 25 mg suppository Discontinued 25 MG VA Q4H August 15, 2018 11:00pm September 03, [...] (2 sources) Start: 10-18-2017 End: 04-12-2018 take 46558 [IU] by mouth once daily Vitamin D3 Discontinued 15402 UNIT PO Daily October 17, 2017 11:00pm [...] Dysuria; Translations: [Dysuria] Onset: 02-01-2023 Resolved: 05-26-2023 3 Episodic Inflammatory diseases of female pelvic organs [...] Test Name Value Interpretation Reference Range Facility XR Chest 2 Viewson XR Chest 2 Views Exam Date/Time: 10/07/2023 12:11 EDT Reason for Exam: R05.1, Z87.09, R07.1 Report IMPRESSION: NO ACUTE ACTIVE CARDIOPULMONARY PROCESS CLINICAL INFORMATION: R05.1, Z87.09, R07.1 chest pain with inspiration COMPARISON: None available. FINDINGS: Two views of the chest were obtained. The cardiac silhouette is of normal size configuration. Pulmonary vasculature unremarkable Right-sided trachea. No focal infiltrate No effusion No pneumothoraces. There is a dextroscoliosis of the thoracic spine Ordering Provider: , FINAL REPORT Dictated: 10/07/2023 7:43 pm Pj Medina Signed (Electronic Signature): 10/07/2023 7:43 pm Signed by: Pj Medina Transcribed by: RYAN Technologist: CALEB Technical Comments Radiation Dose: Ka,r in mGy = . DAP = . Normal [facility] MR KNEE RIGHT WO IV CONTRAST on [...] the medial meniscus. ELECTRONICALLY SIGNED BY: Sami Yanez DO Normal Not Available Comment on above: Order Comment: Left ear surgery Consent for Treatmenton 05-13 Consent for Treatment [id number] .00TIFF Normal [facility] Discharge Instructionson Discharge Instructions [id number]# 1.00TIFF Normal [facility] ED Clinical Summaryon 2023 ED Clinical Summary [place] [id number] ED Clinical Summary Person Information Name: MAURY COLLAZO Lisa/[facility] Age: 22 Years : 2000 Sex: Female Language: American PCP: Bella Camara MD Marital Status: Single [...] 05/27/2023 13:04:43 05/27/2023 13:04:43 05/27/2023 13:04:43 ADDRESS: [address] [place] [id number] PHYS DOC NOTES: MEDICAL INFORMATION: Prescriptions Given: Medications to Continue with No Changes Other Medications promethazine (promethazine 25 mg Tab) 1 Tablets By Mouth every 6 hours as needed as needed for nausea/vomiting. Refills: 0. PATIENT EDUCATION INFORMATION: Instructions: Knee Sprain, Adult Follow up: With: Address: When: Russell Mcc[place] [id number] Business (1) In 3 days 05/30/2023 DIAGNOSIS: Knee sprain Normal [facility] ED Noteon 05-27-2023 ED Note [id number]# 1.00TIFF Normal [facility] ED Note-Physicianon 05-27-19 ED Note-Physician Basic [...] medications Follow-up With When Contact Information Russell Chavez In 3 days 05/30/2023 EST [address] [place], [place] [address] (1) Additional Instructions: Patient Education Knee Sprain, [...] made to ensure accuracy, however, inadvertently computerized spice room worker mistakes may be present. Appropriate healthcare PPE [...] = na Signed By: Kalin Goldberg MD [facility] Comment on above: Result Comment: Elec [...] or lying down. General instructions ? Take apzu-hym-dcdpoyy and prescription medicines only as told by [...] provider. Document Revised: 07/06/2022 Document Reviewed: 02/16/2020 Elsevier Patient Education ? 2022 [email or web address]. Normal [facility] ED Patient Summaryon 024 ED Patient Summary [address] [address] Patient Discharge Instructions Person Information Name: MAURY COLLAZO Age: 22 Years Arrival Date: 05/27/2023 11:15:44 Discharge Diagnosis: Knee sprain Primary Care Physician: Hoa JASSO, Bella Shaw Provider Information Primary Provider: Brielle Varma, Michael Panchal Advanced Solid Waste Manager:Pola Purcell PA-C The exam and treatment you received in the Emergency Department were for an urgent problem and are not intended as complete care. It is important that you follow up with a doctor, nurse practitioner, or physician?s assistant signal maintainer for ongoing care. If your symptoms become worse or you do not improve as expected and you are unable to reach your usual health care provider, you should return to the Emergency Department. We are available 24 hours a day. MAURY COLLAZO has been given the following list of patient education materials, prescriptions and follow-up instructions: Follow-up Instructions: With: Address: When: Russell Chavez [address] [place], [place] [address] [employer] (1) In 3 days 05/30/2023 In the event that this physician does not participate in your insurance network, please consult with your insurance company to find a nearby participating provider. Patient Education Materials: Knee Sprain, Adult A MESSAGE TO ALL PATIENTS REGARDING OPIOIDS PRESCRIPTION OPIOIDS: WHAT YOU NEED TO KNOW Prescription opioids can be used to help relieve lgllmxwe-mx-tjuzxs pain and are often prescribed following a [...] be struggling with addiction, tell your health family day care worker and ask for guidance or call [facility] Helpline at [phone]. t Source: [place] Department of Health (more content not included)... Normal [facility] XR Knee Complete 4+ Views Dc tano 05-27-2023 XR Knee Complete 4+ Views Right Exam Date/Time: 05/27/2023 11:41 EST Reason for Exam: Pain, Traumatic Report IMPRESSION: NEGATIVE RIGHT KNEE. CLINICAL HISTORY: Pain, Traumatic COMPARISON: NONE. FINDINGS: 4 views of the right knee demonstrate no evidence of a fracture, dislocation, bone or joint abnormality. Ordering Provider: Pola Purcell FINAL REPORT Dictated: 05/27/2023 11:52 am Kalin Goldberg MD Signed (Electronic Signature): 05/27/2023 11:52 am Signed by: Kalin Goldberg MD Transcribed by: DP Technologist: [place] Technical Comments Radiation Dose: Ka,r in mGy = na DAP = na Normal [facility] XR Hip - right 3 [facility] Result: AP pelvis bilateral hip and frog view of the right hip taken in the office today which do not demonstrate any congenital abnormalities with a femoral head or acetabulum no evidence of acute fracture or bony tumor seen. [facility] Study observation (narrative) [facility] XR Lumbar spine 4 [facility] Result: AP lateral and oblique of the lumbar spine taken in the office which he end demonstrates no change in her thoracolumbar scoliosis she does have noted Schmorl nodes multiple discs and developing some early facet hypertrophy in the lumbar spine [facility] Study observation (narrative) [facility] XR Chest Single Viewon 11-11 XR Chest [...] mGy = na DAP = na Normal [facility] Auto Diffon 11-10-2022 Basophils/100 WBC (Bld) 0.5 % Normal 0.0-2.0 [facility] Comment on above: Order Comment: Order Added by Discern Expert. Performed By: #### 2 467233, 4299713, 94672071, 8188650, 1132671, 95244643, 2775659, 5501228 ####[facility] [address] [place] [address] Basophils/Leukocytes Auto (Bld) [Pure # fraction] 0.0 E9/L Normal 0.0-0.2 [facility] Comment on above: Order Comment: Order Added by Discern Expert. Performed By: #### 2 041902, 8019991, 62527548, 6959735, 9483136, 62420480, 7153707, 0642852 ####[facility] [address] [place] [address] Eosinophils/100 WBC (Bld) 1.0 % Normal 0.0-8.0 [facility] Comment on above: Order Comment: Order Added by Discern Expert. Performed By: #### 2 365289, 7848402, 15365730, 8225001, 7147618, 05596974, 3748514, 0076771 ####[place] [address] [place] [address] Eosinophils/Leukocytes Auto (Bld) [Pure # fraction] 0.1 E9/L Normal 0.0-0.5 [facility] Comment on above: Order Comment: Order Added by Discern Expert. Performed By: #### 2 141682, 1107582, 16033821, 4720765, 8266918, 55194071, 9159949, 3625079 ####[place] [address] [place] [address] Lymphocytes/100 WBC (Bld) 26.5 % Normal 14.0-50.0 [facility] Comment on above: Order Comment: Order Added by Discern Expert. Performed By: #### 2 307574, 0151095, 59934994, 8165454, 7537249, 29066744, 8434927, 3794752 ####[address] [address] Lymphocytes/Leukocytes Auto (Bld) [Pure # fraction] 2.3 E9/L Normal 1.0-4.0 [facility] Comment on above: Order Comment: Order Added by Discern Expert. Performed By: #### 2 876446, 9761572, 14797672, 4318748, 0030872, 54524876, 6273580, 3872825 ####[place] [address] [place] [address] Monocytes/100 WBC (Bld) 5.2 % Normal 4.0-14.0 [facility] Comment on above: Order Comment: Order Added by Discern Expert. Performed By: #### 2 103852, 4481370, 16940505, 5609085, 6392363, 31344817, 8725438, 8849232 ####[place] [place] [address] Monocytes/Leukocytes Auto (Bld) [Pure # fraction] 0.4 E9/L Normal 0.2-1.0 [facility] Comment on above: Order Comment: Order Added by Discern Expert. Performed By: #### 2 095036, 5579285, 70959200, 4680468, 4211137, 05110225, 5576856, 4070263 ####[facility] [address] [place] [address] Neutrophils/100 WBC (Bld) 66.8 % Normal 36.0-75.0 [facility] Comment on above: Order Comment: Order Added by Discern Expert. Performed By: #### 2 138178, 1827037, 49442809, 4706580, 1502383, 64434028, 6426692, 5571703 ####[facility] [address] [place] [address] Neutrophils/Leukocytes Auto (Bld) [Pure # fraction] 5.7 E9/L Normal 2.0-7.5 [facility] Comment on above: Order Comment: Order Added by Discern Expert. Performed By: #### 2 626875, 8091839, 00792538, 0901684, 3823544, 85834686, 7901768, 2530230 ####[facility] [address] [place] [address] BMPon 11-10-2022 Creatinine [Mass/Vol] 0.8 mg/dL Normal 0.5-1.3 [facility] Comment on above: Performed By: #### 2 214890, 7514521, 17334463, 5199827, 3188503, 20575675, 5980433, 5865566 ####[facility] [address] [place] [address] Urea nitrogen [Mass/Vol] 13 mg/dL Normal 5-21 [facility] Comment on above: Performed By: #### 2 891135, 8554188, 94632785, 5662801, 3942259, 87765351, 0284335, 4266305 ####[facility] [address] [place] [address] Urea nitrogen/Creatinine [Mass ratio] 16 No Units Normal 10-20 [facility] Comment on above: Performed By: #### 2 738184, 6364945, 11402149, 4224552, 8788048, 72019983, 0565907, 8400281 ####[facility] [address] [place] [address] Anion gap [Moles/Vol] 13 mmol/L Normal 6-16 [facility] Comment on above: Performed By: #### 2 912968, 5483531, 98058618, 1181079, 4909235, 63423850, 2018081, 4245380 ####[facility] [address] [place] [address] Calcium [Mass/Vol] 9.7 mg/dL Normal 8.9-11.1 [facility] Comment on above: Performed By: #### 2 801833, 0817830, 61507789, 1631145, 7752664, 00118604, 0099718, 3727538 ####[facility] [address] [place] [address] Chloride [Moles/Vol] 105 mmol/L Normal 101-111 [facility] Comment on above: Performed By: #### 2 843841, 0278364, 40772407, 4391034, 8972658, 47248966, 3233801, 6801157 ####[facility] [address] [place] [address] CO2 [Moles/Vol] 24 mmol/L Normal 21-31 [facility] Comment on above: Performed By: #### 2 153164, 7241162, 13174818, 5452083, 8713251, 72608124, 5258161, 7622903 ####[facility] [address] [place] [address] Glucose [Mass/Vol] 96 mg/dL Normal 55-199 [facility] Comment on above: Result Comment: If t his glucose result represents a fasting glucose, interpretation should refer to the following reference range: 55-99 mg/dL Performed By: #### 2 915030, 1864210, 71780042, 0130299, 9220504, 60097491, 2836128, 1260142 ####[facility] [address] [place] [address] Potassium [Moles/Vol] 3.8 mmol/L Normal 3.5-5.3 [facility] Comment on above: Performed By: #### 2 820302, 9435939, 90439584, 2456744, 4562295, 60614080, 3750859, 0834335 ####[facility] [address] [place] [address] Sodium [Moles/Vol] 138 mmol/L Normal 135-145 [facility] Comment on above: Performed By: #### 2 701151, 7917056, 99815221, 5746898, 5558553, 80240296, 0421794, 5492602 ####[address] [place] [address] CBC w/ Auto Diffon 3 Erythrocyte distribution width (RBC) [Ratio] 13.5 % Normal 10.9-14.2 [facility] Comment on above: Performed By: #### 2 105599, 3403158, 79341628, 9776235, 2862534, 41790363, 5261406, 9070275 ####[address] [place] [address] Hematocrit (Bld) [Volume fraction] 40.4 % Normal 34.0-46.0 [facility] Comment on above: Performed By: #### 2 310950, 5594002, 47203786, 3698025, 6241096, 16217986, 8718613, 1298077 ####[facility] [address] [place] [address] Hemoglobin (Bld) [Mass/Vol] 13.7 g/dL Normal 12.0-16.0 [facility] Comment on above: Performed By: #### 2 809281, 3180186, 42343665, 3581717, 7443584, 64862804, 2023744, 9791580 ####[place] [address] [place] [address] MCH (RBC) [Entitic mass] 30.0 pg Normal 27.0-34.0 [facility] Comment on above: Performed By: #### 2 536500, 1110466, 45889915, 8735251, 4805926, 85968495, 7956662, 3710965 ####[address] [address] MCHC (RBC) [Mass/Vol] 33.9 g/dL Normal 31.4-36.0 [facility] Comment on above: Performed By: #### 2 715273, 9790445, 79647107, 5085937, 0682730, 00229314, 9420455, 4974278 ####[address] [address] MCV (RBC) [Entitic vol] 88.6 fL Normal 80.0-100.0 [facility] Comment on above: Performed By: #### 2 111035, 3506068, 52115417, 8403663, 8617983, 17959412, 4930486, 2218324 ####[address] [address] Platelet mean volume (Bld) [Entitic vol] 10.8 fL Normal 6.4-10.8 [facility] Comment on above: Performed By: #### 2 361471, 3539040, 97682009, 9507155, 7528419, 89708814, 5659777, 2860476 ####[address] [address] Platelets (Bld) [#/Vol] 192.0 E9/L Normal 150.0-500.0 [facility] Comment on above: Performed By: #### 2 621671, 4297515, 54144579, 1758378, 9055934, 99627132, 1303866, 1505715 ####[facility] [address] [place] [address] RBC (Bld) [#/Vol] 4.6 E12/L Normal 4.3-5.9 [facility] Comment on above: Performed By: #### 2 797807, 1314227, 21925292, 1787887, 8490491, 68423777, 0507125, 2212358 ####[facility] [address] [place] [address] WBC corrected for nucl RBC Auto (Bld) [#/Vol] 8.5 E9/L Normal 4.0-11.0 [facility] Comment on above: Result Comment: Slid e reviewed by FREDRICK. Performed By: #### 2 200322, 5113772, 50219704, 0931151, 3573990, 94486195, 8458903, 8826000 ####[facility] [address] [place] [address] CHEMISTRYOrdered By: SYSTEM SYSTEM on 11-10-2022 Albumin [Mass/Vol] 4.6 g/dL Normal 3.3 - 5.0 gm/dL [facility]isol Albumin/Globulin [Mass ratio] 1.5 {ratio} Normal [...] 105 mL/min/1.73 m2 Normal >=59mL/min/1 .73 m2 FT Chem S Globulin (S) [Mass/Vol] 3.1 g/dL [...] 138 mmol/L Normal 135 - 145 mmol/L [facility] Remisol Troponin I.cardiac [Mass/Vol] pg/mL Low 10.10 - 27.10 pg/mL [facility] Urea nitrogen [Mass/Vol] 13 mg/dL Normal 5 - 21 mg/dL [facility] Urea nitrogen/Creatinine [Mass ratio] 16 mg/mg Normal 10 - 20 [facility] COAGULATIONOrdered By: Aaron Wren on 11-10-2022 Fibrin D-dimer FEU (PPP) [Mass/Vol] ng/mL FEU Low 215 - 500 ng/mL FEU [facility] Auto Coag Consent for Treatmenton Consent for Treatment [id number]#1 .00CD:127 Normal [facility] D-Dimeron 11-10-2022 Fibrin D-dimer FEU (PPP) [Mass/Vol] <215 Low 215-500 [facility] Comment on above: Result Comment: This [...] infections Liver cirrhosis Performed By: #### 2 540603, 3408292, 21313426, 8197364, 4772919, 47894011, 3327139, 6517554 ####[facility] [address] [place] [address] Discharge Instructionson Discharge Instructions [id number]# 1.00CD:127 Normal [facility] ED Clinical Summaryon 2022 ED Clinical Summary [address] [address] ED Clinical Summary Person Information Name: MAURY COLLAZO Lisa/[facility] Age: 22 Years : 2000 Sex: Female Language: American PCP: Bella Camara MD Marital Status: Single [...] 19:05:26 11/10/2022 19:05:26 ADDRESS: [address] [place] [address] A [id number] PHYS DOC NOTES: MEDICAL INFORMATION: Prescriptions Given: New [...] Adult Follow up: With: Address: When: Bella Camara [address] [place] [address] [employer] ([email or web address] In 3 days 11/13/2022 Comments: Retrurn to the emergency room if your shortness of breath recurs, abdominal pain recurs or any new symptoms. DIAGNOSIS: 1:Abdominal pain; 2:Shortness of breath Normal [facility] ED Note-Physicianon 11-11-19 ED Note-Physician Basic [...] and Complexity of Problems Differential Diagnosis: [] [facility] Data External documents reviewed: [] My [...] Contact I (more content not included)... Normal [facility] Comment on above: Result Comment: Elec [...] these instructions at home: Medicines ? Take cued-jqs-uqsrdak and prescription medicines only as told by [...] your condition for any changes. ? Take wzts-rzo-qyaanyg and prescription medicines only as told by [...] provider. Document Revised: 05/17/2020 Document Reviewed: 08/07/2019 ElseColingo Patient Education ? 2022 [email or web address]. Pulmonary Medicine Shortness of Breath, Adult Shortness [...] any changes in your symptoms. ? Take gsva-lgn-pclpzaf and prescription medicines only as told by [...] ? D (more content not included)... Normal [facility] ED Patient Summaryon 023 ED Patient Summary [address] [address] Patient Discharge Instructions Person Information Name: MAURY COLLAZO Age: 22 Years Arrival Date: 11/10/2022 15:56:06 Discharge Diagnosis: 1:Abdominal pain; 2:Shortness of breath Primary Care Physician: Bella Camara MD Provider Information Primary Provider: Michael Hannah M.D. Advanced Solid Waste Manager:None The exam and treatment you received in the Emergency Department were for an urgent problem and are not intended as complete care. It is important that you follow up with a doctor, nurse practitioner, or physician?s assistant signal maintainer for ongoing care. If your symptoms become [...] Instructions: With: Address: When: Bella [place] [address] [facility] (1) In 3 days 11/13/2022 Comments: Retrurn [...] opioids can be used to help relieve dqmwmggu-px-hwnqyd pain and are often prescribed following a [...] struggling wi (more content not included)... Normal [facility] HEMATOLOGYOrdered By: SYSTEM SYSTEM on 11-10-2022 [...] above: Result Comment: Slid e reviewed by [facility] Panelon 11-10-2022 Bilirubin.indirect [Mass or moles/Vol] UTC Abnormal 0.1-0.9 [facility] Comment on above: Result Comment: Resu lt verified by Discern Rule. Performed result UTC (Unable to Calculate) was sent as an Alpha code due the inability to calculate a valid numeric value. Performed By: #### 2 193773, 9015102, 96633645, 4140869, 5363874, 34166843, 4425382, 3685225 ####[facility] [address] [place] [address] Albumin [Mass/Vol] 4.6 g/dL Normal 3.3-5.0 [facility] Comment on above: Performed By: #### 2 614922, 0410685, 67150108, 0200428, 3631535, 77667697, 7214683, 3461824 ####[facility] [address] [place] [address] Albumin/Globulin (S) [Mass conc ratio] 1.5 Normal 1.1-2.2 [facility] Comment on above: Performed By: #### 2 181312, 7918039, 45397569, 8453373, 1730971, 10319900, 5251724, 8262652 ####[facility] [address] [place] [address] ALP [Catalytic activity/Vol] 41 Int._Unit/L Normal 21-98 [facility] Comment on above: Performed By: #### 2 657946, 3821614, 04339531, 4416291, 8613604, 79216122, 2000137, 4961296 ####[address] [address] ALT No additional P-5'-P [Catalytic activity/Vol] 17 Int._Unit/L Normal 6-46 [facility] Comment on above: Performed By: #### 2 576390, 6863823, 75610848, 1119084, 6004257, 69497754, 4255664, 0850761 ####[facility] [address] [place] [address] AST [Catalytic activity/Vol] 17 Int._Unit/L Normal 5-43 [facility] Comment on above: Performed By: #### 2 199586, 4412655, 08258520, 5792887, 0116022, 51766510, 2831644, 8595770 ####[facility] [address] [place] [address] Bilirubin [Mass/Vol] 0.5 mg/dL Normal 0.0-1.1 [facility] Comment on above: Performed By: #### 2 852487, 5792035, 01610867, 8591049, 9774784, 58321712, 4013199, 9215674 ####[facility] [address] [place] [address] Globulin (S) [Mass/Vol] 3.1 g/dL Normal 1.4-4.0 [facility] Comment on above: Performed By: #### 2 506758, 6409541, 84287737, 2117615, 4489618, 75148314, 9770027, 3840769 ####[facility] [address] [place] [address] Protein [Mass/Vol] 7.7 g/dL Normal 6.0-7.8 [facility] Comment on above: Performed By: #### 2 618091, 6028470, 04352621, 6877693, 7763189, 33369774, 7629498, 3812738 ####[facility] [address] [place] [address] Bilirubin.direct [Mass/Vol] mg/dL Normal 0.1-0.4 [facility] Comment on above: Performed By: #### 2 928507, 2726215, 42859149, 3689149, 8517604, 74877590, 4680721, 7170680 ####[facility] [address] [place] [address] Lipase Levelon 11-10-2022 Lipase [Catalytic activity/Vol] 28 U/L Normal 13-58 [facility] Comment on above: Performed By: #### 2 473649, 4032446, 21173158, 1422020, 5419266, 80846710, 8695671, 3492048 ####[facility] [address] [place] [address] Progress Note-Nurseon 2022 Progress Note-Nurse Patient brought back to ED 11 at this time from the waiting room Normal [facility] SEROLOGYOrdered By: Brittni choudhury on 11-10-2022 HCG.beta subunit (U) [Moles/Vol] Negative Normal [facility] Man Sero Troponin 0 Hr.on 11-10-2022 Troponin I.cardiac [Mass/Vol] ng/mL Low 10.10-27.10 [facility] Comment on above: Result Comment: The 95% CI (Confidence Interval) PPV (Positive Predictive Value) for myocardial infarction in females is 38 pg/mL, in males 51 pg/mL. The results should be used in conjunction with clinical conditions of myocardial infarction. (Access High Sensitivity Troponin I Instructions For Use, Richelle Yvan, November 2017) Performed By: #### 2 529470, 8417679, 07303211, 5974141, 2473107, 40223051, 8781296, 5257629 ####[facility] [address] [place] [address] U BetaHcg Qualon 11-10-2022 HCG.beta subunit (U) [Moles/Vol] Negative Normal [facility] Comment on above: Performed By: #### 2 7014149 ####[place] [place] [address] UA With Cult Reflexon 2022 Bilirubin Ql (U) Negative Normal Negative [facility] Comment on above: Performed By: #### 1 5887329 ####[address] [address] Clarity (U) CLEAR Normal Clear [facility] Comment on above: Performed By: #### 1 8654854 ####[address] [address] Color (U) YELLOW Normal Yellow [facility] Comment on above: Performed By: #### 1 5688214 ####[address] [address] Epithelial cells.squamous LM.HPF (Urine sed) [#/Area] 0-2 Normal 0-2 [facility] Comment on above: Performed By: #### 1 3277107 ####[facility] [address] [place] [address] Glucose Test strip (U) [Mass/Vol] Negative Normal Negative [facility] Comment on above: Performed By: #### 1 4076408 ####[facility] [address] [place] [address] Hemoglobin Ql (U) Negative Normal Negative [facility] Comment on above: Performed By: #### 1 1971987 ####Chan [address] [address] Ketones (U) [Mass/Vol] Negative Normal Negative [facility] Comment on above: Performed By: #### 1 0877073 ####[address] [address] [place].plasma/[place]. RBC (Bld) [Mass ratio] 0-3 Normal 0-3 [facility] Comment on above: Performed By: #### 1 2571107 ####[address] [address] Nitrite Ql (U) Negative Normal Negative [facility] Comment on above: Performed By: #### 1 3273674 ####[address] [address] pH (U) 6.0 [pH] Invalid Interpretation Code 5.0-9.0 [facility] Comment on above: Performed By: #### 1 1612445 ####[address] [address] Protein (U) [Mass/Vol] Negative Normal Negative [facility] Comment on above: Performed By: #### 1 6081481 ####[address] [address] Specific gravity (U) [Rel density] 1.010 Invalid Interpretation Code 1.005-1.030 [facility] Comment on above: Performed By: #### 1 9058372 ####[address] [address] Type of Urine collection method Clean Catch Normal [facility] Comment on above: Performed By: #### 1 5507996 ####[address] [address] Urobilinogen Qn (U) 0.2 {Elizabeth'U}/dL Normal 0.0-1.0 [facility] Comment on above: Performed By: #### 1 8737162 ####[address] [address] WBC Auto Ql (U) Negative Normal Negative [facility] Comment on above: Performed By: #### 1 2097382 ####[facility] [address] [place] [address] WBC LM.HPF (Urine sed) [#/Area] 0-5 Normal 0-5 [facility] Comment on above: Performed By: #### 1 3313000 ####[facility] [address] [place] [address] URINALYSISOrdered By: Brittni Wren on 11-10-2022 Bilirubin Ql (U) Negative (11/10/22 5:44 PM) Normal Negative [facility] UA Auto SS Clarity (U) Clear (11/10/22 5:44 PM) Normal Clear [facility] UA Auto SS Color (U) Yellow (11/10/22 5:44 PM) Normal Yellow [facility] UA Auto SS Epithelial cells.squamous LM.HPF (Urine sed) [#/Area] 0-2 /HPF Normal 0-2/HPF [facility] UA Aut o SS Glucose Test strip (U) [Mass/Vol] Negative (11/10/22 5:44 PM) Normal Negative [facility] UA Auto SS Hemoglobin Ql (U) Negative (11/10/22 5:44 PM) Normal Negative [facility] UA Auto SS Ketones (U) [Mass/Vol] Negative (11/10/22 5:44 PM) Normal Negative [facility] UA Auto SS [place].plasma/[place]. RBC (Bld) [Mass ratio] 0-3 /HPF Normal 0-3/HPF [facility] UA A uto SS Nitrite Ql (U) Negative (11/10/22 5:44 PM) Normal Negative [facility] UA Auto SS pH (U) 6.0 *NA* (11/10/22 5:44 PM) Invalid Interpretation Code 5.0 - 9.0 [facility] UA Auto SS Protein (U) [Mass/Vol] Negative (11/10/22 5:44 PM) Normal Negative [facility] UA Auto SS Specific gravity (U) [Rel density] 1.010 *NA* (11/10/22 5:44 PM) Invalid Interpretation Code 1.005 - 1.030 [facility] UA Auto SS UA Spec Desc Clean Catch (11/10/22 5:44 PM) Normal [facility] UA Auto SS Urobilinogen Qn (U) 0.0378666 {Elizabeth'U}/dL Normal 0.0 - 1.0 EU/dL [facility] UA Auto SS WBC Auto Ql (U) Negative (11/10/22 5:44 PM) Normal Negative [facility] UA Auto SS WBC LM.HPF (Urine sed) [#/Area] 0-5 /HPF Normal 0-5/HPF [facility] UA Auto SS eGFRon 11-10-2022 GFR/1.73 sq M.predicted among non-blacks MDRD (S/P/Bld) [Vol rate/Area] 105 mL/min/1.73 m2 Normal >=59 [facility] Comment on above: Order Comment: Order added by Discern Expert. Result Comment: Cover Making Machine Operator crystal kidney disease could be indicated at eGFR's of less than 60 mL/min/1.73m2. Kidney failure is indicated at less than 15 mL/min/1.73m2. Performed By: #### 2 905352, 2172699, 42440634, 7688681, 4691942, 78958222, 3311258, 8270211 ####[facility] [address] [place] [id number] ECG 12 lead ECGon 04-13-2022 ECG 12 lead ECG [facility] [place] [address] Electrocardiograph Report Signed Patient: Maury Collazo MR#: [id number] : 2000 Acct:[id number] Age/Sex: 21 / F ADM Date: 04/12/22 Loc: ER Room: Type: [facility] ER Attending Dr: Ordering Provider: Phillip [...] When compared with ECG of 16-JAN-2019 22:40, VA interval has decreased Nonspecific ST and T wave abnormality now present Confirmed by SAMI SPRAGUE DO ([id number]) on 04/14/2022 6:37:26 PM Referred By: Electronically Signed By:SAMI SPRAGUE DO Transcribed By: MUS Signed By Sami Sprague DO 04/14 1837 [facility] XR chest 1V portableon 04-13 XR chest 1V portable [facility] [place] [address] [place] [address] XRay Report Signed Patient: Maury Collazo MR#: [id number] : 2000 Acct:[id number] Age/Sex: 21 / F ADM Date: 04/12/22 Loc: ER Room: Type: [facility] ER Attending Dr: Copies to: Phillip [...] FINDINGS Impression dictated by: Javad Solomon Jr., D.O.04/13/2022 10:35 AM Dictation Location: [place] [address] Transcribed By: [facility] 04/13/22 1035 Dictated By: Javad Solomon Jr, DO 04/13/22 1034 Signed By: 04/13/22 1035 [facility] B-Type Natriuretic Peptideon 04-12-2022 Natriuretic peptide B (Bld) [Mass/Vol] 34.0 pg/mL Normal 5-100 [facility] Comment on above: Result Comment: PERF ORMED BY: [place] [address] PATHOLOGIST BLOOD DONOR RECRUITER SUPERVISOR CATHERINE SEYMOUR M.D. Performed By: #### D DIMER, BNP, CBC, BMP, HS TROP #### [address] Basic Metabolic Panelon Anion gap [Moles/Vol] 13.1 mmol/L Normal 6.0-15.0 [facility] Comment on above: Performed By: #### D DIMER, BNP, CBC, BMP, HS TROP #### [facility] [address] Calcium [Mass/Vol] 8.9 mg/dL Normal 8.2-10.2 [facility] Comment on above: Performed By: #### D DIMER, BNP, CBC, BMP, HS TROP #### [facility] [address] Chloride [Moles/Vol] 101 mmol/L Normal 95-114 [facility] Comment on above: Performed By: #### D DIMER, BNP, CBC, BMP, HS TROP #### [facility] [address] CO2 [Moles/Vol] 22.7 mmol/L Normal 22.0-30.0 [facility] Comment on above: Performed By: #### D DIMER, BNP, CBC, BMP, HS TROP #### [facility] [address] Creatinine [Mass/Vol] 0.72 mg/dL Normal 0.44-1.03 [facility] Comment on above: Performed By: #### D DIMER, BNP, CBC, BMP, HS TROP #### [facility] [address] [place] [address] [place] Creatinine Clr Calc Pharmacy 117.02 [facility] Comment on above: Result Comment: PERF ORMED BY: [facility] [address] [place] [address] PATHOLOGIST BLOOD DONOR RECRUITER SUPERVISOR CATHERINE SEYMOUR M.D. Performed By: #### D DIMER, BNP, CBC, BMP, HS TROP #### [facility] [address] Estimated GFR ( Lisa > 60 [facility] Comment on above: Result Comment: GFR estimated reference range: According to KDOQI guidelines, <60 ml/min/1.73m2 is sufficient to diagnose a patient with chronic kidney disease. Performed By: #### D DIMER, BNP, CBC, BMP, HS TROP #### [facility] [address] [place] [address] [place] Estimated GFR (Non- Am > 60 Normal [facility] Comment on above: Performed By: #### D DIMER, BNP, CBC, BMP, HS TROP #### [facility] [address] [place] [address] [place] Glucose [Mass/Vol] 108 mg/dL High 70-100 [facility] Comment on above: Result Comment: [facility] Glucose Reference Range is dependent on time and content of last meal. Glucose of more than 200 mg/dL in a nonstressed, ambulatory subject supports the diagnosis of Diabetes Mellitus. ADA recommended reference range Performed By: #### D DIMER, BNP, CBC, BMP, HS TROP #### [facility] [address] Potassium [Moles/Vol] 3.8 mmol/L Normal 3.5-5.1 [facility] Comment on above: Performed By: #### D DIMER, BNP, CBC, BMP, HS TROP #### [facility] [address] [place] [address] [place] Sodium [Moles/Vol] 133 mmol/L Low 136-146 [facility] Comment on above: Performed By: #### D DIMER, BNP, CBC, BMP, HS TROP #### [facility] [address] [place] [address] [place] Urea nitrogen [Mass/Vol] 7 mg/dL Low 9-23 [facility] Comment on above: Performed By: #### D DIMER, BNP, CBC, BMP, HS TROP #### [facility] [address] [place] [address] [place] Basophils Auto (Bld) [#/Vol] Ordered By: Phillip Shaw on 04-12-2022 Basophils (Bld) [#/Vol] 0.0 10*3/uL 0.0-0.2 [facility] Basophils/100 WBC Auto (Bld) Ordered By: Phillip Shaw on 04-12-2022 Basophils/100 WBC (Bld) 0.4 % . [facility] Complete Blood Count Auto Di ffon 04-12-2022 Basophils (Bld) [#/Vol] 0.0 10*3/uL Normal 0.0-0.2 [facility] Comment on above: Result Comment: PERF ORMED BY: [place] [address] PATHOLOGIST BLOOD DONOR RECRUITER SUPERVISOR CATHERINE SEYMOUR M.D. Performed By: #### D DIMER, BNP, CBC, BMP, HS TROP #### [address] Basophils/100 WBC (Bld) 0.4 % Normal . [facility] Comment on above: Performed By: #### D DIMER, BNP, CBC, BMP, HS TROP #### [address] Eosinophils (Bld) [#/Vol] 0.0 10*3/uL Normal 0.0-0.45 [facility] Comment on above: Performed By: #### D DIMER, BNP, CBC, BMP, HS TROP #### [address] Eosinophils/100 WBC (Bld) 0.1 % Normal . [facility] Comment on above: Performed By: #### D DIMER, BNP, CBC, BMP, HS TROP #### [address] Erythrocyte distribution width (RBC) [Ratio] 15.1 % Normal 11.9-15.3 [facility] Comment on above: Performed By: #### D DIMER, BNP, CBC, BMP, HS TROP #### [address] Hematocrit (Bld) [Volume fraction] 37.6 % Normal 34.0-46.4 [facility] Comment on above: Performed By: #### D DIMER, BNP, CBC, BMP, HS TROP #### [address] Hemoglobin (Bld) [Mass/Vol] 12.4 g/dL Normal 11.8-15.4 [facility] Comment on above: Performed By: #### D DIMER, BNP, CBC, BMP, HS TROP #### [address] Lymphocytes (Bld) [#/Vol] 1.0 10*3/uL Normal 1.00-4.8 [facility] Comment on above: Performed By: #### D DIMER, BNP, CBC, BMP, HS TROP #### [address] Lymphocytes/100 WBC (Bld) 9.1 % Normal . [facility] Comment on above: Performed By: #### D DIMER, BNP, CBC, BMP, HS TROP #### [address] MCH (RBC) [Entitic mass] 28.8 pg Normal 24.7-34.3 [facility] Comment on above: Performed By: #### D DIMER, BNP, CBC, BMP, HS TROP #### [address] MCV (RBC) [Entitic vol] 87.5 fL Normal 80-100 [facility] Comment on above: Performed By: #### D DIMER, BNP, CBC, BMP, HS TROP #### [address] Mean Corpuscular HGB Conc 32.9 g/dL Normal 32.0-35.0 [facility] Comment on above: Performed By: #### D DIMER, BNP, CBC, BMP, HS TROP #### [address] Monocytes (Bld) [#/Vol] 1.1 10*3/uL High 0.0-0.8 [facility] Comment on above: Performed By: #### D DIMER, BNP, CBC, BMP, HS TROP #### [address] Monocytes/100 WBC (Bld) 22.31 % High 0.00-20.00 [facility] Comment on above: Result Comment: For adults in ED, MDW > 20.0 may be associated with a higher risk of sepsis during the first 12 hrs of hospital admission Performed By: #### D DIMER, BNP, CBC, BMP, HS TROP #### [facility] [address] [place] [address] Monocytes/100 WBC (Bld) 10.3 % Normal . [facility] Comment on above: Performed By: #### D DIMER, BNP, CBC, BMP, HS TROP #### [address] Neutrophils (Bld) [#/Vol] 8.9 10*3/uL High 1.8-7.7 [facility] Comment on above: Performed By: #### D DIMER, BNP, CBC, BMP, HS TROP #### [address] Neutrophils/100 WBC (Bld) 80.1 % Normal . [facility] Comment on above: Performed By: #### D DIMER, BNP, CBC, BMP, HS TROP #### [address] NRBC% 0.1 /100{WBC} Normal 0-0.5 [facility] Comment on above: Performed By: #### D DIMER, BNP, CBC, BMP, HS TROP #### [address] Platelet mean volume (Bld) [Entitic vol] 11.4 fL High 6.3-10.7 [facility] Comment on above: Performed By: #### D DIMER, BNP, CBC, BMP, HS TROP #### [address] Platelets (Bld) [#/Vol] 181 10*3/uL Normal 150-450 [facility] Comment on above: Performed By: #### D DIMER, BNP, CBC, BMP, HS TROP #### [address] RBC (Bld) [#/Vol] 4.30 10*6/uL Normal 3.60-5.00 [facility] Comment on above: Performed By: #### D DIMER, BNP, CBC, BMP, HS TROP #### [facility] [address] [place] [address] [place] WBC (Bld) [#/Vol] 11.1 10*3/uL Normal 3.8-11.6 [facility] Comment on above: Performed By: #### D DIMER, BNP, CBC, BMP, HS TROP #### [facility] [address] Creatinine and Glomerular fi ltration rate.predicted panel (S/P/Bld)Ordered By: Phillip Shaw on 04-12-2022 Creatinine [Mass/Vol] 0.72 mg/dL 0.44-1.03 [facility] D-Dimer High Sensitivityon 0 04-12-2022 D-Dimer High Sensitivity < 200 Normal 0-243 [facility] Comment on above: Result Comment: The reference [...] patients due to co-morbid conditions. PERFORMED BY: [place] [address] PATHOLOGIST BLOOD DONOR RECRUITER SUPERVISOR CATHERINE SEYMOUR M.D. Performed By: #### D DIMER, BNP, CBC, BMP, HS TROP #### [facility] [address] [place] [address] [place] Eosinophils Auto (Bld) [#/Vo l]Ordered By: Phillip Shaw on 04-12-2022 Eosinophils (Bld) [#/Vol] 0.0 10*3/uL 0.0-0.45 [facility] Eosinophils/100 WBC Auto (Bl d)Ordered By: Phillip Shaw on 04-12-2022 Eosinophils/100 WBC (Bld) 0.1 % . [facility] Erythrocyte distribution wid th Auto (RBC) [Ratio]Ordered By: Phillip Shaw on 04-12-2022 Erythrocyte distribution width (RBC) [Ratio] 15.1 % 11.9-15.3 [facility] Estimated glomerular filtrat ion rate (GFR) non- AmericanOrdered By: Phillip Shaw on 04-12-2022 GFR/1.73 sq M.predicted among non-blacks MDRD (S/P/Bld) [Vol rate/Area] > 60 mL/Min [facility] Hematocrit Auto (Bld) [Volum e fraction]Ordered By: Phillip Shaw on 04-12-2022 Hematocrit (Bld) [Volume fraction] 37.6 % 34.0-46.4 [facility] Hemoglobin [Mass/volume] in BloodOrdered By: Phillip Shaw on 04-12-2022 Hemoglobin (Bld) [Mass/Vol] 12.4 g/dL 11.8-15.4 [facility] Laboratory - Chemistry and C hemistry - challengeOrdered By: Phillip Shaw on 04-12-2022 Natriuretic peptide B (Bld) [Mass/Vol] 34.0 pg/mL 5-100 [facility] Leukocytes [#/volume] correc charli for nucleated erythrocytes in Blood by Automated counOrdered By: Phillip Shaw on 04-12-2022 WBC corrected for nucl RBC Auto (Bld) [#/Vol] 11.1 10*3/uL 3.8-11.6 [facility] Lymphocytes Auto (Bld) [#/Vo l]Ordered By: Phillip Shaw on 04-12-2022 Lymphocytes (Bld) [#/Vol] 1.0 10*3/uL 1.00-4.8 [facility] Lymphocytes/100 WBC Auto (Bl d)Ordered By: Phillip Shaw on 04-12-2022 Lymphocytes/100 WBC (Bld) 9.1 % . [facility] MCH Auto (RBC) [Entitic mass ]Ordered By: Phillip Shaw on 04-12-2022 MCH (RBC) [Entitic mass] 28.8 pg 24.7-34.3 [facility] MCHC Auto (RBC) [Mass/Vol]Or dered By: Phillip Shaw on 04-12-2022 MCHC (RBC) [Mass/Vol] 32.9 g/dL 32.0-35.0 [facility] MCV Auto (RBC) [Entitic vol] Ordered By: Phillip Shaw on 04-12-2022 MCV (RBC) [Entitic vol] 87.5 fL 80-100 [facility] Monocyte distribution width [Entitic volume] in Blood by AutomatedOrdered By: Phillip Shaw on 04-12-2022 Monocyte distribution width Auto (Bld) [Entitic vol] 22.31 % 0.00-20.00 [facility] Comment on above: For adults in ED, MD W > 20.0 may be associated with a higher risk of sepsis during the first 12 hrs of hospital admission Monocytes Auto (Bld) [#/Vol] Ordered By: Phillip Shaw on 04-12-2022 Monocytes (Bld) [#/Vol] 1.1 10*3/uL 0.0-0.8 [facility] Monocytes/100 WBC Auto (Bld) Ordered By: Phillip hSaw on 04-12-2022 Monocytes/100 WBC (Bld) 10.3 % . [facility] Neutrophils Auto (Bld) [#/Vo l]Ordered By: Phillip Shaw on 04-12-2022 Neutrophils (Bld) [#/Vol] 8.9 10*3/uL 1.8-7.7 [facility] Neutrophils/100 WBC Auto (Bl d)Ordered By: Phillip Shaw on 04-12-2022 Neutrophils/100 WBC (Bld) 80.1 % . [facility] No Panel InformationOrdered By: Phillip Shaw on 04-12-2022 D-Dimer Quantitative (PE/DVT) < 200 ng/mL 0-243 [facility] Comment on above: The reference range for [...] conditions. Estimated GFR () > 60 mL/Min [facility] Comment on above: GFR estimated refere nce range: According to KDOQI guidelines, <60 ml/min/1.73m2 is sufficient to diagnose a patient with chronic kidney disease. Pharmacy Creatinine Clearance (Chem 117.02 [facility] Nucleated erythrocytes [Pres ence] in Blood by Automated countOrdered By: Phillip Shaw on 04-12-2022 Nucleated RBC Auto Ql (Bld) 0.1 /100{WBC} 0-0.5 [facility] Platelet mean volume Auto (B ld) [Entitic vol]Ordered By: Phillip Shaw on 04-12-2022 Platelet mean volume (Bld) [Entitic vol] 11.4 fL 6.3-10.7 [facility] Platelets Auto (Bld) [#/Vol] Ordered By: Phillip Shaw on 04-12-2022 Platelets (Bld) [#/Vol] 181 10*3/uL 150-450 [facility] RBC Auto (Bld) [#/Vol]Ordere d By: Phillip Shaw on 04-12-2022 RBC (Bld) [#/Vol] 4.30 10*6/uL 3.60-5.00 [facility] Serum or plasma anion gap de terminationOrdered By: Phillip Shaw on 04-12-2022 Anion gap [Moles/Vol] 13.1 mmol/L 6.0-15.0 [facility] Serum or plasma calcium oliver urement (mass/volume)Ordered By: Phillip Shaw on 04-12-2022 Calcium [Mass/Vol] 8.9 mg/dL 8.2-10.2 [facility] Serum or plasma chloride jeanne surement (moles/volume)Ordered By: Phillip Shaw on 04-12-2022 Chloride [Moles/Vol] 101 mmol/L 95-114 [facility] Serum or plasma glucose oliver urement (mass/volume)Ordered By: Phillip Shaw on 04-12-2022 Glucose [Mass/Vol] 108 mg/dL 70-100 [facility] Comment on above: ADA recommended refe rence rangeRandom Glucose Reference Range is dependent on time and content of last meal. Glucose of more than 200 mg/dL in a nonstressed, ambulatory subject supports the diagnosis of Diabetes Mellitus. Serum or plasma potassium me asurement (moles/volume)Ordered By: Phillip Shaw on 04-12-2022 Potassium [Moles/Vol] 3.8 mmol/L 3.5-5.1 [facility] Serum or plasma sodium measu rement (moles/volume)Ordered By: Phillip Shaw on 04-12-2022 Sodium [Moles/Vol] 133 mmol/L 136-146 [facility] Serum or plasma total carbon dioxide measurement (moles/volume)Ordered By: Phillip Shaw on 04-12-2022 CO2 [Moles/Vol] 22.7 mmol/L 22.0-30.0 [facility] Serum or plasma urea nitroge n measurement (mass/volume)Ordered By: Phillip Shaw on 04-12-2022 Urea nitrogen [Mass/Vol] 7 mg/dL 9-23 [facility] Troponin I High Sensitivityo n 04-12-2022 Troponin I High Sensitivity 5 pg/mL Normal 0-15 [facility] Comment on above: Result Comment: PERF ORMED BY: [place] [address] PATHOLOGIST BLOOD DONOR RECRUITER SUPERVISOR CATHERINE SEYMOUR M.D. Performed By: #### D DIMER, BNP, CBC, BMP, HS TROP #### [address] Troponin I.cardiac [Mass/vol ume] in Serum or Plasma by High sensitivity methodOrdered By: Phillip Shaw on 04-12-2022 Troponin I.cardiac High sensitivity method [Mass/Vol] 5 pg/mL 0-15 [facility] WBC Auto (Bld) [#/Vol]Ordere d By: Phillip Shaw on 04-12-2022 WBC (Bld) [#/Vol] 11.1 10*3/uL 3.8-11.6 [facility] COVID CepheidOrdered By: Twyla Rea on 04-07-2022 SARS-CoV-2 (COVID-19) Ab IA Ql Negative Negative [facility] Comment on above: This is a duplicate Cepheid Xpert Xpress CoV-2/Flu/RSV Plus RNA by RT-PCR result to be used for statistical tracking purpose only. SARS-CoV-2 (COVID-19) RNA BARBI+probe Ql (Unsp spec) [facility] COVID-19 / Flu A/B / RSV PCR on 04-07-2022 SARS-CoV-2 (COVID-19) RNA BARBI+probe Ql (Unsp spec) Results called at 0039 on 04/08/22 to [id number] COVID-19 Cepheid Result Negative for SARS-CoV-2 RNA [...] or Cepheid Disclaimer revoked sooner. PERFORMED BY: [place] [address] PATHOLOGIST BLOOD DONOR RECRUITER SUPERVISOR CATHERINE SEYMOUR M.D. Normal [facility] Comment on above: Performed By: #### C OVID19 FLU RSV, CEPHEID NEG #### [address] Cepheid COVID PCR Negativeon 04-07-2022 SARS-CoV-2 (COVID-19) RNA BARBI+probe Ql (Unsp spec) Negative Normal Negative [facility] Comment on above: Result Comment: This is a duplicate Cepheid Xpert Xpress CoV-2/Flu/RSV Plus RNA by RT-PCR result to be used for statistical tracking purpose only. PERFORMED BY: [place] [address] PATHOLOGIST BLOOD DONOR RECRUITER SUPERVISOR CATHERINE SEYMOUR M.D. Performed By: #### C OVID19 FLU RSV, CEPHEID NEG #### [address] XR Spine Lumbar 4+ Views*on 08-21-2021 [...] signed by JOVITA MA on 08/21/2021 1223 [facility] HEALTHon 10-04-2020 [facility] HNO ID: [id number] Author: RT Kristin(R) Service: Radiology Author Type: Computer Graphics Illustrator Type: Allied Health Filed: 10/04/2020 10:48 AM [...] RT Kristin(R) October 04, 2020 10:26 AM [facility] HNO ID: [id number] Author: RT Kristin(R) Service: Radiology Author Type: Computer Graphics Illustrator Type: Allied Health Filed: 10/04/2020 9:27 AM Note Text: Waiting for HCG results to come back before performing exam Bing Killian(Batsheva) [facility] ED NOTEon 10-04-2020 ED NOTE HNO ID: [id number] Author: Samara Orozco RN Service: ? Author [...] ambulated with steady gait out of ED. [facility] ED NOTE HNO ID: [id number] Author: Samara Orozco RN Service: ? Author Type: Registered Nurse Type: ED Notes Filed: 10/04/2020 11:38 AM Note Text: Pt resting comfortably in bed. Comfort measures offered. Call light within reach. No distress noted at this time. Safety maintained and will continue to monitor patient. [facility] ED NOTE HNO ID: [id number] Author: Samara Orozco RN Service: ? Author Type: Registered Nurse Type: ED Notes Filed: 10/04/2020 11:38 AM Note Text: Pt resting comfortably in bed. Comfort measures offered. Call light within reach. No distress noted at this time. Safety maintained and will continue to monitor patient. [facility] ED NOTE HNO ID: [id number] Author: Akin Mcclain RN Service: ? Author Type: Registered Nurse Type: ED Notes Filed: 10/04/2020 9:21 AM Note Text: PO fluids provided [facility] ED NOTE HNO ID: [id number] Author: Akin Mcclain RN Service: ? Author [...] head or LOC. +MSP; gate is steady. [facility] ED PROV NOTEon 10-04-2020 ED PROV NOTE HNO ID: [id number] Author: Al Castellanos MD Service: Emergency Medicine [...] IV drug use. History provided by: Patient box builder used: No History reviewed. No pertinent past [...] 8:41 AM) History of Malignancy: No (AL CASTLELANOS at 10/04/2020 8:41 AM) Prolonged Steroid Use: [...] 10/04/2020 8:41 AM) History of Osteoporosis: No (CRESCENCIOELIUDOZAL at 10/04/2020 8:41 AM) Imaging Needed? Imaging Needed (AL CASTELLANOS at 10/05/19 (more content not included)... [facility] HCG Qual, Urineon 10-04-2020 Beta HCG ( test) Ql (U) Negative Normal Negative [facility] Comment on above: Performed By: #### U HCG #### [facility] [address] [id number] XR FEMUR 2V AP/LAT RTon 09-11 XR [...] No acute bone or joint space abnormality. Regulatory Submissions Specialist: ROSA Transcribe Date/Time: Oct 04 2020 10:50A Dictated by : Anca MACKENZIE MD This examination was interpreted and the report reviewed and electronically signed by: Anca MACKENZIE MD on Oct 04 2020 10:55AM EST [id number] N [facility] XR LUMBAR 3V AP/LAT/L5-S1on 10-04-2020 XR LUMBAR [...] vertebrae. Anatomic Variant: Transitional L5 vertebral body. Regulatory Submissions Specialist: ROSA Transcribe Date/Time: Oct 04 2020 10:56A Dictated by : Anca MACKENZIE MD This examination was interpreted and the report reviewed and electronically signed by: Anca MACKENZIE MD on Oct 04 2020 10:58AM EST [id number] N [facility] XR PELVIS 1V APon 10-04-2020 XR PELVIS [...] No acute bone or joint space abnormality. Regulatory Submissions Specialist: [facility] Transcribe Date/Time: Oct 04 2020 10:50A Dictated by : Anca MACKENZIE MD This examination was interpreted and the report reviewed and electronically signed by: Anca MACKENZIE MD on Oct 04 2020 10:55AM EST [id number] N [facility] CHEST 1 VIEWon 10-01-2020 CHEST 1 VIEW Patient Name: MAURY COLLAZO STUDY: CHEST 1 VIEW; 10/01/2020 7:54 am INDICATION: cough. COMPARISON: None. ACCESSION NUMBER(S): [id number] ORDERING CLINICIAN: ERON JONES TECHNIQUE: A portable [...] by: LARS DAMICO MD Normal [facility] CORONAVIRUS 2019 BY PCRon SARS-CoV-2 (COVID-19) RNA BARBI+probe Ql (Unsp spec) Not detected Normal Not Detected [facility] Comment on above: Result Comment: . This assay is designed to detect the RdRp gene of SARS-CoV-2 via nucleic acid amplification. A Not Detected result does not preclude COVID-19 infection since the adequacy of sample collection and/or low viral burden may result in presence of viral nucleic acids below the clinical sensitivity of this test method. Fact sheet for providers: www.fda.gov/media/492776/download Fact sheet for patients: www.fda.gov/media/768899/download This test has received FDA Emergency Use Authorization (EUA) and has been verified by [facility] ([facility]). This test is only authorized for the duration of time that circumstances exist to justify the authorization of the emergency use of in vitro diagnostic tests for the detection of SARS-CoV-2 virus and/or diagnosis of COVID-19 infection under section 564(b)(1) of the Act, 21 U.S.C. 360bbb-3(b)(1), unless the authorization is terminated or revoked sooner. [facility] is certified under CLIA-88 as qualified to perform high complexity testing. Testing is performed in the [facility] laboratory located at [address] [place] [address]. Performed By: #### C OV19 #### [address] [id number] DATE OF SYMPTOM ONSET [YYYYMMDD]? [id number] Normal [facility] Comment on above: Performed By: #### C OV19 #### [address] [id number] Lab Specimen Source Nasal, Nasopharyngeal Normal [facility] Comment on above: Performed By: #### C OV19 #### [address] [id number] Covid 19 Resultson 1 SARS-CoV-2 (COVID-19) RNA [...] You may also be contacted by the [facility] to see if any of your close [...] or Naproxen (Aleve) can also be used. Nwmx-sla-dlxbngc cough and cold medicines can be used according to the instructions on the package. Some iayi-zrp-ocsejwr medicines also contain acetaminophen. Make sure you [...] water are not available, use alcohol-based hand clinical appeals auditor. Avoid touching your eyes, nose, and mouth [...] (more content not included)... Normal [facility] Provider Note - ED v2on 09-11 Provider [...] As Needed SIGNIFICANT EVENTS: No documented data. 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 Normal [facility] Risk Screen - Adult Emergenc yon 10-01-2020 [...] demonstration; verbal instruction Cultural Considerationsnone Developmental Considerationsnone Anabaptist Considerationsnone Learning Assessment (Other Learner): Learning Assessment [...] an injured patient at a Trauma Center ([facility]/[place]/[facility]/[place]): no Electronic Signatures: Hailey Shepard (STAFF N) (Signed 01-Oct-2020 07:27) Authored: Preferred Language, Advanced Directives, Family Violence Adult, Learning Assessment (Patient), Learning Assessment (Other Learner), Pressure Injury/TB/Substance, Pressure Injury, CAGE Last Updated: 01-Oct-2020 07:27 by Hailey Shepard (STAFF N) Normal 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 CBC AUTO DIFFon 09-10-2018 Basophils #/vol (Bld) 0.0 103/ul Normal 0.0-0.1 [facility] [place] [facility] Comment on above: Performed By: #### C BC #### [facility] [address] [place], [place] [address] Dianne Vilchis Basophils/100 WBC (Bld) 0.4 % Normal 0.2-2.0 [facility] Comment on above: Performed By: #### C BC #### [facility] [address] [address] Dianne Vilchis Eosinophils #/vol (Bld) 0.0 103/ul Normal 0.0-0.7 [facility] Comment on above: Performed By: #### C BC #### [facility] [address] [place], [place] [id number] Dianne Vilchis Eosinophils/100 WBC (Bld) 0.4 % Critically low 0.9-7.0 [facility] [place] [facility] Comment on above: Performed By: #### C BC #### [facility] [address] [place] [address] Dianne Vilchis Erythrocyte distribution width Ratio (RBC) 12.9 % Normal 11.0-15.0 [facility] [place] [facility] Comment on above: Performed By: #### C BC #### [facility] [address] [place] [address] Dianne Vilchis Hematocrit Volume Fraction (Bld) 38.9 % Normal 36.0-48.0 [facility] [place] [facility] Comment on above: Performed By: #### C BC #### [facility] [address] [place] [address] Dianne Vilchis Hemoglobin mass conc (Bld) 13.4 g/dL Normal 12.0-16.0 [facility] [place] [facility] Comment on above: Performed By: #### C BC #### [facility] [address] [place] [address] Dianne Vilchis IG # 0.03 10e3/ul Normal 0.00-0.03 [facility] [place] [facility] Comment on above: Performed By: #### C BC #### [facility] [address] [place] [address] Dianne Vilchis IG % 0.3 % Normal 0.0-0.5 [facility] [place] [facility] Comment on above: Performed By: #### C BC #### [facility] [address] [place] [address] Dianne Vilchis Lymphocytes #/vol (Bld) 2.1 103/ul Normal 1.2-3.8 [facility] Comment on above: Performed By: #### C BC #### [facility] [address] [id number] Dianne Mame Lymphocytes/100 WBC (Bld) 20.3 % Critically low 20.5-60.0 [facility] [place] [facility] Comment on above: Performed By: #### C BC #### [facility] [address] [place], [place] [id number] Dianne Mame MANUAL DIFF REQ NO Normal [facility] Comment on above: Performed By: #### C BC #### [facility] [address] [place], [place] [id number] Dianne Mame MCH Entitic mass (RBC) 30.4 pg Normal 26.7-34.0 [facility] Comment on above: Performed By: #### C BC #### [facility] [address] [place] [address] Dianneisidro Vilchis MCHC mass conc (RBC) 34.4 g/dL Normal 29.9-35.2 [facility] [place] [facility] Comment on above: Performed By: #### C BC #### [facility] [address] [place], [place] [address] Dianne Mame MCV Entitic volume (RBC) 88.2 fL Normal 81.0-99.0 [facility] [place] [facility] Comment on above: Performed By: #### C BC #### [facility] [address] [place], [place] [id number] Dianne Mame Monocytes #/vol (Bld) 0.6 103/ul Normal 0.3-0.8 [facility] [place] [facility] Comment on above: Performed By: #### C BC #### [facility] [address] [place], [place] [address] Dianne Mame Monocytes/100 WBC (Bld) 5.7 % Normal 1.7-12.0 [facility] Comment on above: Performed By: #### C BC #### [facility] [address] [place], [place] [address] Dianne Mame Neutrophils #/vol (Bld) 7.4 103/ul Critically high 1.4-6.5 [facility] [place] [facility] Comment on above: Performed By: #### C BC #### [facility] [address] [place], [place] [address] Dianneisidro Vilchis Neutrophils/100 WBC (Bld) 72.9 % Normal 43.0-75.0 [facility] [place] [facility] Comment on above: Performed By: #### C BC #### [facility] [address] [place], [place] [address] Dianne Mame Platelet mean volume Entitic volume (Bld) 12.5 fL Normal 9.5-13.[address] [facility] Comment on above: Performed By: #### C BC #### [facility] [address] [place], [place] [address] Dianne Mame Platelets #/vol (Bld) 192 103/ul Normal 150-450 [facility] [place] [facility] Comment on above: Performed By: #### C BC #### [facility] [address] [place] [address] Dianne Mame RBC #/vol (Bld) 4.41 106/ul Normal 4.20-5.40 [facility] [place] Comment on above: Performed By: #### C BC #### [facility] [address] [place], [place] [address] Dianne Mame WBC #/vol (Bld) 10.1 103/ul Normal 4.0-11.0 [facility] [place] Comment on above: Performed By: #### C BC #### [facility] [address] [place], [place] [address] Dianne Mame ER URINE PROFILEon 9 Bilirubin mass conc SMALL Normal NEGATIVE [facility] Comment on above: Performed By: #### E RUR #### [facility] [address] [place], [place] [address] Dianne Mame BLOOD Negative Normal NEGATIVE [facility] Comment on above: Performed By: #### E RUR #### [facility] [address] [place], [place] [address] Dianne Mame Clarity Nom (U) CLEAR Normal [facility] Comment on above: Performed By: #### E RUR #### [facility] [address] [place], [place] [address] Dianne Mame Color Nom (U) YELLOW Normal YELLOW [facility] Comment on above: Performed By: #### E RUR #### [facility] [address] [place], [place] [address] Dianne Vilchis ERUAHD A micrscopic examination will be performed if indicated. Normal [facility] [place] [facility] Comment on above: Performed By: #### E RUR #### [facility] [address] [place], [place] [address] Dianneisidro Vilchis Glucose mass conc Negative Normal NEGATIVE [facility] Comment on above: Performed By: #### E RUR #### [facility] [address] [place] [address] Dianne Vilchis Ketones Ql (U) >=80 Normal NEGATIVE [facility] Comment on above: Performed By: #### E RUR #### [facility] [address] [place] [address] Dianneisidro Vilchis Nitrite Ql (U) Negative Normal NEGATIVE [facility] Comment on above: Performed By: #### E RUR #### [facility] [address] [place] [address] Dianne Vilchis pH (Bld) 6.0 Normal 5-9 [facility] [place] [facility] Comment on above: Performed By: #### E RUR #### [facility] [address] [place] [address] Dianne Vilchis Protein mass conc (U) TRACE Normal [facility] [place] [facility] Comment on above: Performed By: #### E RUR #### [facility] [address] [place] [address] Dianne Vilchis SPEC GRAVITY 1.025 Normal 1.005-<=1.02 5 [facility] [place] [facility] Comment on above: Performed By: #### E RUR #### [facility] [address] [place] [address] Dianne Vilchis UR MICRO IND NOT INDICATED Normal [facility] Comment on above: Performed By: #### E RUR #### [facility] [address] [place] [address] Dianne Vilchis Urobilinogen Qn (U) 0.2 EU/dl Normal [facility] Comment on above: Performed By: #### E RUR #### [facility] [address] [id number] Dianne Mame WBC #/vol (Bld) Negative Normal NEGATIVE [facility] Comment on above: Performed By: #### E RUR #### [facility] [address] [id number] Dianne Vilchis PROF 14(COMP METB)on 019 Albumin mass conc 3.8 g/dL Normal 3.5-5.0 [facility] Comment on above: Performed By: #### C MP #### [facility] [address] [id number] Dianne Mame Albumin/Globulin mass ratio 1.0 {ratio} Normal [facility] [place] [facility] Comment on above: Performed By: #### C MP #### [facility] [address] [address] Dianne Mame ALP enzyme act/vol 53 U/L Normal 38-126 [facility] Comment on above: Performed By: #### C MP #### [facility] [address] [id number] Dianne Mame ALT enzyme act/vol 25 U/L Normal 9-52 [facility] Comment on above: Performed By: #### C MP #### [facility] [address] [id number] Dianne Mame Anion gap molar conc 13.4 mmol/L Normal [facility] [place] [facility] Comment on above: Performed By: #### C MP #### [facility] [address] [id number] Dianne Mame AST enzyme act/vol 17 U/L Normal 14-36 [facility] Comment on above: Performed By: #### C MP #### [facility] [address] [id number] Dianne Mame Bilirubin Ql (U) 0.5 mg/dL Normal 0.2-1.3 [facility] Comment on above: Performed By: #### C MP #### [facility] [address] [id number] Dianne Mame Calcium mass conc 9.6 mg/dL Normal 8.4-10.2 [facility] Comment on above: Performed By: #### C MP #### [facility] [address] [address] Dianne Mame Chloride molar conc 101 mmol/L Normal 98-107 [facility] Comment on above: Performed By: #### C MP #### [facility] [address] [address] Dianne Mame CO2 molar conc 24.1 mmol/L Normal 22.0-30.[address] [facility] Comment on above: Performed By: #### C MP #### [facility] [address] [address] Dianne Mame Creatinine mass conc 0.64 mg/dL Normal 0.52-1.04 [facility] [place] [facility] Comment on above: Performed By: #### C MP #### [facility] [address] [address] Dianne Mame EGFR-AF LAO >60 Normal >=60 [facility] Comment on above: Performed By: #### C MP #### [facility] [address] [address] Dianne Mame EGFR-NON AF LAO >60 Normal >=60 [facility] [place] [facility] Comment on above: Performed By: #### C MP #### [facility] [address] [place] [address] Dianne Mame Globulin mass conc (S) 3.9 g/dL Normal [facility] Comment on above: Performed By: #### C MP #### [facility] [address] [address] Dianne Mame Glucose mass conc 76 mg/dL Normal 74-106 [facility] Comment on above: Performed By: #### C MP #### [facility] [address] [place] [address] Dianne Mame Potassium molar conc 3.5 mmol/L Normal 3.4-5.0 [facility] [place] [facility] Comment on above: Performed By: #### C MP #### [facility] [address] [place] [address] Dianne Vilchis Protein mass conc 7.7 g/dL Normal 6.1-8.2 [facility] Comment on above: Performed By: #### C MP #### [facility] [address] [id number] Dianne Vilchis Sodium molar conc 135 mmol/L Critically low 137-145 [facility] [place] [facility] Comment on above: Performed By: #### C MP #### [facility] [address] [id number] Dianne Vilchis Urea nitrogen mass conc 9.0 mg/dL Normal 6.4-19.3 [facility] Comment on above: Performed By: #### C MP #### [facility] [address] [id number] Dianne Vilchis Urea nitrogen/Creatinine mass ratio 14.1 mg/mg Normal [facility] [place] [facility] Comment on above: Performed By: #### C MP #### [facility] [address] [id number] Dianne Vilchis Vital Signs Date Time Vital Sign Value Performing Clinician Faci lity 05-27-2023 11:20-0500 Body temperature 97.52 [degF] [facility] [place] 05-27-2023 11:20-0500 Diastolic blood pressure 84 mm[Hg] [facility] [place] 05-27-2023 11:20-0500 Heart rate 61 /min [facility] [place] 05-27-2023 11:20-0500 Respiratory rate 20 /min [facility] [place] 05-27-2023 11:20-0500 SaO2% (BldA) [Mass fraction] 99 % [facility] [place] 05-27-2023 11:20-0500 Systolic blood pressure 124 mm[Hg] [facility] [place] 05-26-2023 16:14-0500 Body mass index (BMI) [Ratio] 21.86 kg/m2 Bella Camara MD Work Phone: [facility] 05-26-2023 16:14-0500 Body temperature 98.6 [degF] Bella Camara MD Work Phone: [facility] 05-26-2023 16:14-0500 Body weight 67.13 kg Bella Camara MD Work Phone: [facility] 05-26-2023 16:14-0500 Diastolic blood pressure 78 mm[Hg] Bella Camara MD Work Phone: [facility] 05-26-2023 16:14-0500 Heart rate 71 /min Bella Camara MD Work Phone: [facility] 05-26-2023 16:14-0500 SaO2% (BldA) [Mass fraction] 100 % Bella Camara MD Work Phone: [facility] 05-26-2023 16:14-0500 Systolic blood pressure 118 mm[Hg] Bella Camara MD Work Phone: [facility] 05-24-2023 15:36-0500 Body height 175.3 cm Elisabet Giron FACTORY MANAGER [facility] 05-24-2023 15:36-0500 Body mass index (BMI) [Ratio] 21.86 kg/m2 Elisabet Giron FACTORY MANAGER [facility] 05-24-2023 15:36-0500 Body temperature 98.4 [degF] Elisabetal Peterr FACTORY MANAGER [facility] 05-24-2023 15:36-0500 Body weight 67.13 kg Elisabetal Peterr FACTORY MANAGER [facility] 05-24-2023 15:36-0500 Diastolic blood pressure 72 mm[Hg] Elisabet Hernandeziller FACTORY MANAGER [facility] 05-24-2023 15:36-0500 Heart rate 109 /min Elisabet Peterr FACTORY MANAGER [facility] 05-24-2023 15:36-0500 SaO2% (BldA) [Mass fraction] 99 % Elisabet Peterr FACTORY MANAGER [facility] 05-24-2023 15:36-0500 Systolic blood pressure 112 mm[Hg] Elisabet Peterr FACTORY MANAGER [facility] 05-19-2023 14:22-0500 Body height 175.3 cm [facility] Work Phone: [facility] 05-19-2023 14:22-0500 Body mass index (BMI) [Ratio] 21.71 kg/m2 [facility] Work Phone: [facility] 05-19-2023 14:22-0500 Body temperature 97.59 [degF] [facility] Work Phone: [facility] 05-19-2023 14:22-0500 Body weight 66.68 kg [facility] Work Phone: [facility] 05-17-2023 15:37-0500 Body height 175.3 cm Miracle Padilla MD Work Phone: [facility] 05-17-2023 15:37-0500 Body mass index (BMI) [Ratio] 21.56 kg/m2 Miracle Padilla MD Work Phone: [facility] 05-17-2023 15:37-0500 Body weight 66.22 kg Miracle Padilla MD Work Phone: [facility] 05-17-2023 15:37-0500 Diastolic blood pressure 70 mm[Hg] Miracle Padilla MD Work Phone: [facility] 05-17-2023 15:37-0500 Heart rate 71 /min Miracle Padilla MD Work Phone: [facility] 05-17-2023 15:37-0500 SaO2% (BldA) [Mass fraction] 98 % Miracle Padilla MD Work Phone: [facility] 05-17-2023 15:37-0500 Systolic blood pressure 112 mm[Hg] Miracle Padilla MD Work Phone: [facility] 05-12-2023 11:26-0500 Body height 175.3 cm Miracle Padilla MD Work Phone: [facility] 05-12-2023 11:26-0500 Body mass index (BMI) [Ratio] 21.71 kg/m2 Miracle Padilla MD Work Phone: [facility] 05-12-2023 11:26-0500 Body temperature 98.01 [degF] Miracle Padilla MD Work Phone: [facility] 05-12-2023 11:26-0500 Body weight 66.68 kg Miracle Padilla MD Work Phone: [facility] 05-12-2023 11:26-0500 Diastolic blood pressure 68 mm[Hg] Miracle Padilla MD Work Phone: [facility] 05-12-2023 11:26-0500 Heart rate 65 /min Miracle Padilla MD Work Phone: [facility] 05-12-2023 11:26-0500 SaO2% (BldA) [Mass fraction] 99 % Miracle Padilla MD Work Phone: [facility] 05-12-2023 11:26-0500 Systolic blood pressure 106 mm[Hg] Miracle Padilla MD Work Phone: [facility] 11-10-2022 19:03-0400 Diastolic blood pressure 89 mm[Hg] [facility] 11-10-2022 19:03-0400 Heart rate 53 /min [facility] 11-10-2022 19:03-0400 Mean blood pressure 99 mm[Hg] [facility] 11-10-2022 19:03-0400 Respiratory rate 16 /min [facility] 11-10-2022 19:03-0400 SaO2% (BldA) [Mass fraction] 99 % [facility] 11-10-2022 19:03-0400 Systolic blood pressure 120 mm[Hg] [facility] 11-10-2022 18:15-0400 Diastolic blood pressure 83 mm[Hg] [facility] 11-10-2022 18:15-0400 Heart rate 52 /min [facility] 11-10-2022 18:15-0400 Mean blood pressure 96 mm[Hg] [facility] 11-10-2022 18:15-0400 Respiratory rate 16 /min [facility] 11-10-2022 18:15-0400 SaO2% (BldA) [Mass fraction] 100 % [facility] 11-10-2022 18:15-0400 Systolic blood pressure 122 mm[Hg] [facility] 11-10-2022 17:16-0400 Diastolic blood pressure 80 mm[Hg] [facility] 11-10-2022 17:16-0400 Heart rate 57 /min [facility] 11-10-2022 17:16-0400 Mean blood pressure 93 mm[Hg] [facility] 11-10-2022 17:16-0400 Respiratory rate 16 /min [facility] 11-10-2022 17:16-0400 SaO2% (BldA) [Mass fraction] 100 % [facility] 11-10-2022 17:16-0400 Systolic blood pressure 119 mm[Hg] [facility] 11-10-2022 17:10-0400 Hourly Rounding [facility] 11-10-2022 17:10-0400 Promise to Return [facility] 11-10-2022 16:06-0400 Body temperature 97.88 [degF] [facility] 11-10-2022 16:06-0400 Heart rate 66 /min [facility] 11-10-2022 16:06-0400 Respiratory rate 16 /min [facility] 04-13-2022 00:12-0500 Diastolic blood pressure 61 mm[Hg] DO Phillip Tripp Work Phone: [facility] 04-13-2022 00:12-0500 Heart rate 75 /min DO Phillip Tripp Work Phone: 3(612)105-195576 [place] [address] 04-13-2022 00:12-0500 Respiratory rate 18 /min DO Phillip Petznick Work Phone: 9(732)742-091152 [place] [address] 04-13-2022 00:12-0500 SaO2% (BldA) [Mass fraction] 98 % DO Phillip Petznick Work Phone: 1(035)325-004877 [address] 04-13-2022 00:12-0500 Systolic blood pressure 120 mm[Hg] DO Phillip Petznick Work Phone: 7(889)532-106377 [address] 04-12-2022 22:49-0500 Body height 175.26 cm DO Phillip Petznick Work Phone: 3(562)008-661952 [place] [address] 04-12-2022 22:49-0500 Body temperature 101.4 [degF] DO Phillip Petznick Work Phone: 0(548)144-667852 [place] [address] 04-12-2022 22:49-0500 Body weight 61 kg DO Phillip Petznick Work Phone: 5(996)496-763552 [place] [address] 04-07-2022 23:14-0500 Body height 175.26 cm DO Phillip Petznick Work Phone: 8(276)046-503152 [place] [address] 04-07-2022 23:14-0500 Body temperature 98.7 [degF] DO Phillip Petznick Work Phone: 3(863)186-170752 [place] [address] 04-07-2022 23:14-0500 Body weight 69 kg DO Phillip Petznick Work Phone: 6(070)403-239477 [address] 04-07-2022 23:14-0500 Diastolic blood pressure 67 mm[Hg] DO Phillip Petznick Work Phone: 2(400)087-243952 [place] [address] 04-07-2022 23:14-0500 Heart rate 110 /min DO Phillip Petznick Work Phone: 0(623)761-949976 [place] [address] 04-07-2022 23:14-0500 Respiratory rate 16 /min DO Phillip Petznick Work Phone: 0(826)230-874276 [place] [address] 04-07-2022 23:14-0500 SaO2% (BldA) [Mass fraction] 99 % DO Phillip Tripp Work Phone: [facility] 04-07-2022 23:14-0500 Systolic blood pressure 112 mm[Hg] DO Phillip Tripp Work Phone: [facility] Encounters Encounter Date Encounter Type Care Provider Facility Start: 11-16-2023 End: 11-16-2023 ambulatory KHOA RODRIGUEZ Not Available Start: 11-10-2023 End: 11-10-2023 ambulatory MIRACLE PADILLA Not Available Start: 11-03-2023 End: 11-03-2023 ambulatory ELISABET GIRON Not Available Start: 11-01-2023 End: 11-01-2023 ambulatory MIRACLE PADILLA Not Available Start: 10-27-2023 End: 10-27-2023 ambulatory MIRACLE PADILLA Not Available Start: 10-21-2023 End: 10-21-2023 ambulatory TREY ALVARADO Not Available Start: 10-20-2023 End: 10-20-2023 ambulatory MIRACLE PADILLA Not Available Start: 10-07-2023 End: 10-07-2023 ambulatory ASHLIE CRANE Not Available Start: 10-07-2023 End: 10-07-2023 ambulatory ASHLIE CRANE Facility:[facility] Start: 10-07-2023 End: 10-07-2023 Patient encounter procedure ASHLIE CRANE [facility] Start: 09-30-2023 End: 09-30-2023 ambulatory ABIGAIL TREJO [...] Available Start: 08-27-2023 End: 08-27-2023 ambulatory KHOA Jameel RODRIGUEZ Not Available Start: 08-25-2023 End: 08-25-2023 ambulatory ASHLIE FREEMAN Not Available Start: 08-24-2023 End: 08-24-2023 ambulatory ASHLIE FREEMAN Not Available Start: 08-20-2023 End: 08-20-2023 ambulatory TREY ALVARADO Not Available Start: 08-19-2023 End: 08-19-2023 ambulatory KHOA Jameel RODRIGUEZ Not Available Start: 08-10-2023 End: 08-10-2023 ambulatory GRAZYNA M LISA Not Available Start: 08-05-2023 End: 08-05-2023 ambulatory GRAZYNA GONZALEZ Not Available Start: 08-03-2023 End: 08-03-2023 ambulatory GRAZYNA GONZALEZ Not Available Start: 08-02-2023 End: 08-02-2023 [...] 05-27-2023 Emergency department patient visit Michael Hannah [facility] Start: 05-26-2023 End: 05-26-2023 Patient encounter procedure Bella Camara MD Work Phone: [facility] Comment on above: Anxiety Start: 05-26-2023 End: 05-26-2023 ambulatory BELLA Colin CAMARA Not Available Start: 05-25-2023 End: 05-26-2023 ambulatory SHELLY SCOTT Not Available Start: 05-25-2023 Bamboo flowsheet Shelly J Chase s PT Work Phone: [facility] Start: 05-25-2023 Bamboo flowsheet Shelly March Chase s PT Work Phone: [facility] Start: 05-24-2023 End: 05-24-2023 Patient encounter procedure Elisabet Giron NP [facility] Comment on above: Nasal injury, initia l encounter (Primary Dx); Generalized headache; BMI 21.0-21.9, adult Start: 05-24-2023 End: 05-24-2023 ambulatory ELISABET GIRON Not Available Start: 05-24-2023 Bamboo flowsheet Elisabet coburn FACTORY MANAGER [facility] Start: 05-24-2023 Bamboo flowsheet Elisabet coburn FACTORY MANAGER [facility] Start: 05-19-2023 End: 05-19-2023 Patient encounter procedure Shala TOPETE Work Phone: [facility] Comment on [...] Start: 03-26-2023 End: 03-26-2023 ambulatory Grabiel Castellanos Facility:[facility] Start: 03-17-2023 End: 03-17-2023 ambulatory BELLA Colin HOA Not Available Start: 03-02-2023 End: 03-02-2023 ambulatory ELISABET A DONNAMILLER Not Available Start: 02-26-2023 End: 02-26-2023 ambulatory GRAZYNA GONZALEZ Not Available Start: 11-10-2022 End: 11-10-2022 Emergency department patient visit Michael Hannah [facility] Start: 04-13-2022 End: 04-13-2022 Emergency department patient visit Phillip Shaw Facility:[facility] Start: 04-12-2022 End: 04-13-2022 Emergency department patient visit DO Phillip Englanddutch Work Phone: [facility] Work Phone: Start: 04-08-2022 End: 04-08-2022 Emergency department patient visit Taran Rea Facility:[facility] Start: 04-07-2022 End: 04-08-2022 Emergency department patient visit DO Phillip Petdutch Work Phone: [facility] Work Phone: Start: 09-10-2018 [...] PM EST Treatment [facility] [address] [facility] [place] [address] Shelly Scott, PT [address] [place], [place] [id number] [facility] Start: 06-04-2023 End: 06-04-2023 ambulatory 06/04/2023 4:15 PM EST Treatment [facility] [address] [facility] [place] [address] Shelly Scott, PT [address] [facility] [place] [place] [id number] [facility] Start: 05-25-2023 End: 05-25-2023 ambulatory [facility] Comment on above: It band syndrome, ri ght; Trochanteric bursitis of right hip Start: 05-24-2023 End: 05-24-2023 Patient encounter procedure 05/24/2023 3:30 PM EST Office Visit [facility] [address] [place] [id number] Elisabet Giron, FACTORY MANAGER Arrived [facility] Comment on above: Arrived Start: 04-12-2022 Plain chest X-ray XR chest 1V portab le [facility] Start: 04-12-2022 XR Chest Single view [facility] Patient Education [facility] Work Phone: Patient referral [facility] Work Phone: Immunizations Immunization Date Immunization Notes Care Provider Fa [facility] 02-19-2023 influenza, injectabl e, quadrivalent, contains preservative Shala [place] Work Phone: [facility] 01-15-2020 influenza, injectabl e, quadrivalent, preservative free Shala [place] Work Phone: [facility] 01-26-2019 influenza, injectabl e, quadrivalent, preservative free [facility] Work Phone: [facility] 01-26-2019 tetanus toxoid, redu baltazar diphtheria toxoid, and acellular pertussis vaccine, adsorbed [facility] Work Phone: [facility] 06-21-2018 tetanus toxoid, redu baltazar diphtheria toxoid, and acellular pertussis vaccine, adsorbed [facility] 06-06-2018 influenza, injectabl e, quadrivalent, preservative free [facility] 01-22-2011 influenza, seasonal, injectable, preservative free [facility] Work Phone: [facility] 01-22-2011 meningococcal polysaccharide (groups A, C, Y and W-135) diphtheria toxoid conjugate vaccine (MCV4P) [facility] Work Phone: [facility] 01-22-2011 tetanus toxoid, redu baltazar diphtheria toxoid, and acellular pertussis vaccine, adsorbed [facility] Work Phone: [facility] 02-16-2009 novel [id number], preservative-free, injectable [facility] Work Phone: [facility] 01-30-2009 influenza virus vaccine, live, attenuated, for intranasal use [facility] Work Phone: [facility] 02-03-2008 influenza, seasonal, injectable [facility] Work Phone: [facility] 03-01-2007 influenza virus vaccine, whole virus [facility] Work Phone: [facility] 07-24-2003 diphtheria, tetanus toxoids and acellular pertussis vaccine [facility] Work Phone: [facility] 07-24-2003 measles, mumps and rubella virus vaccine [facility] Work Phone: [facility] 07-24-2003 poliovirus vaccine, inactivated [facility] Work Phone: [facility] 03-22-2003 influenza, seasonal, injectable Shala [place] Work Phone: [facility] 09-30-2000 pneumococcal conjuga te vaccine, 7 valent [facility] Work Phone: [facility] 04-08-2000 influenza, seasonal, injectable [facility] Work Phone: [facility] 02-12-2000 influenza virus vaccine, whole virus [facility] Work Phone: [facility] 10-17-1999 diphtheria, tetanus toxoids and acellular pertussis vaccine, unspecified formulation [facility] Work Phone: [facility] 10-17-1999 haemophilus influenz ae type b vaccine, conjugate unspecified formulation [facility] Work Phone: [facility] 10-17-1999 measles, mumps and rubella virus vaccine [facility] Work Phone: [facility] 05-14-1999 poliovirus vaccine, inactivated [facility] Work Phone: [facility] 04-10-1999 diphtheria, tetanus toxoids and acellular pertussis vaccine, unspecified formulation [facility] Work Phone: [facility] 04-10-1999 haemophilus influenz ae type b vaccine, conjugate unspecified formulation [facility] Work Phone: [facility] 04-10-1999 hepatitis B vaccine, pediatric or pediatric/adolescent dosage [facility] Work Phone: [facility] 04-10-1999 trivalent poliovirus vaccine, live, oral [facility] Work Phone: [facility] 01-29-1999 diphtheria, tetanus toxoids and acellular pertussis vaccine, unspecified formulation [facility] Work Phone: [facility] 01-29-1999 haemophilus influenz ae type b vaccine, conjugate unspecified formulation [facility] Work Phone: [facility] 01-29-1999 poliovirus vaccine, inactivated [facility] Work Phone: [facility] 1998 diphtheria, tetanus toxoids and acellular pertussis vaccine, unspecified formulation [facility] Work Phone: [facility] 1998 haemophilus influenz ae type b vaccine, conjugate unspecified formulation [facility] Work Phone: [facility] 1998 hepatitis B vaccine, pediatric or pediatric/adolescent dosage [facility] Work Phone: [facility] 1998 poliovirus vaccine, inactivated [facility] Work Phone: [facility] 1998 hepatitis B vaccine, pediatric or pediatric/adolescent dosage [facility] Work Phone: [facility] NEGATED: Highlighted row has not occurred!03-03-2019 tetanus toxoid, reduced diphtheria toxoid, and acellular pertussis vaccine, adsorbed DO Phillip Manirodrigo Work Phone: [facility] Payers Date Payer Category Payer Unknown [employer] [address] [employer] [id number] 2022-Present [address] [place] [address] [id number] 2022 Unknown [id number] 2022 Private Health Insurance [id number] 2022 Self-pay [id number] 1998 Unknown [id number] 2.16.840.1.140265.3.579.2 .593 1998 Unknown [id number] 2.16.840.1.181719.3.579.2 .727 1998 Unknown [id number] 2.16.840.1.188349.3.579.2 .727 1998 Unknown [id number] 2.16.840.1.835174.3.579.2 .727 1998 Unknown [id number] 2.16.840.1.660879.3.579.2 .1258 1998 Unknown [id number] 2.16.840.1.459906.3.579.2 .1258 1998 Unknown [id number] 2.16.840.1.089791.3.579.2 .1258 1998 Unknown [id number] 2.16.840.1.648744.3.579.2 .1258 1998 Unknown [id number] 2.16.840.1.856077.3.579.2 .1258 1998 Unknown [id number] 2.16.840.1.660897.3.579.2 .1258 1998 Unknown [id number] 2.16.840.1.336726.3.579.2 .1258 1998 Unknown [id number] 2.16.840.1.158944.3.579.2 .1258 1998 Unknown [id number] 2.16.840.1.185359.3.579.2 .1258 1998 Unknown [id number] 2.16.840.1.050774.3.579.2 .1258 1998 Unknown [id number] 2.16.840.1.722185.3.579.2 .1258 1998 Unknown [id number] 2.16.840.1.423866.3.579.2 .1258 1998 Unknown [id number] 2.16.840.1.046169.3.579.2 .1258 1998 Unknown [id number] 2.16.840.1.941229.3.579.2 .1258 1998 Unknown [id number] 2.16.840.1.600025.3.579.2 .1258 1998 Unknown [id number] 2.16.840.1.977757.3.579.2 .1258 1998 Unknown [id number] 2.16.840.1.182501.3.579.2 .1258 1998 Unknown [id number] 2.16.840.1.354447.3.579.2 .1258 1998 Unknown [id number] 2.16.840.1.770288.3.579.2 .1258 1998 Unknown [id number] 2.16.840.1.954131.3.579.2 .1258 1998 Unknown [id number] 2.16.840.1.195651.3.579.2 .1258 1998 Unknown [id number] 2.16.840.1.802312.3.579.2 .1258 1998 Unknown [id number] 2.16.840.1.366553.3.579.2 .1258 1998 Unknown [id number] 2.16.840.1.253561.3.579.2 .1258 1998 Unknown [id number] 2.16.840.1.761778.3.579.2 .1258 1998 Unknown [id number] 2.16.840.1.698102.3.579.2 .1258 1998 Unknown [id number] 2.16.840.1.407499.3.579.2 .1258 1998 Unknown [id number] 2.16.840.1.316210.3.579.2 .1258 1998 Unknown [id number] 2.16.840.1.732342.3.579.2 .1258 1998 Unknown [id number] 2.16.840.1.874188.3.579.2 .1258 1998 Unknown [id number] 2.16.840.1.009510.3.579.2 .1258 1998 Unknown [id number] 2.16.840.1.628259.3.579.2 .1258 1998 Unknown [id number] 2.16.840.1.647626.3.579.2 .1258 1998 Unknown [id number] 2.16.840.1.465327.3.579.2 .1258 1998 Unknown [id number] 2.16.840.1.786886.3.579.2 .1258 1998 Unknown [id number] 2.16.840.1.706643.3.579.2 .1258 1998 Unknown [id number] 2.16.840.1.668560.3.579.2 .1258 1998 Unknown [id number] 2.16.840.1.231634.3.579.2 .1258 1998 Unknown [id number] 2.16.840.1.350611.3.579.2 .1258 1998 Unknown [id number] 2.16.840.1.919524.3.579.2 .1258 1998 Unknown [id number] 2.16.840.1.849924.3.579.2 .1258 1998 Unknown [id number] 2.16.840.1.561944.3.579.2 .1258 1998 Unknown [id number] 2.16.840.1.315197.3.579.2 .1258 1998 Unknown [id number] 2.16.840.1.682355.3.579.2 .1258 1998 Unknown [id number] 2.16.840.1.551030.3.579.2 .1258 1998 Unknown [id number] 2.16.840.1.528675.3.579.2 .1258 1998 Unknown [id number] 2.16.840.1.713553.3.579.2 .1258 1998 Unknown [id number] 2.16.840.1.441408.3.579.2 .1258 1998 Unknown [id number] 2.16.840.1.221937.3.579.2 .1258 1998 Unknown [id number] 2.16.840.1.478476.3.579.2 .1259 1998 Unknown [id number] 2.16.840.1.944059.3.579.2 .1259 1959 Unknown [id number] Unknown [id number] 2.16.840.1.967592.3.579.2 .531 Unknown [id number] 2.16.840.1.871555.3.579.2 .531 Unknown [id number] 2.16.840.1.759734.3.579.2 .531 Worker's Compensation [employer] Misc [id number] Social History Date Type Detail Facility Tobacco smoking stat [facility] Unknown if ever smoked [facility] Start: 1998 Sex Assigned At Female F [facility] Start: 04-08-2022 End: 04-12-2022 Tobacco smoking status NHIS Smoker (finding) [facility] Start: 11-10-2022 Tobacco smoking status Heavy t obacco smoker (finding) [facility] Start: 10-14-2022 End: 03-02-2023 Sex Assigned At Female [facility] Start: 04-12-2014 End: 05-19-2023 Tobacco smoking status ILIS Smokes tobacco daily [facility] Start: 04-12-2014 [...] Healthcare How often do you att end luther[facility] or oriental orthodox services? Patient refused [facility] Are you [...] Sex Assigned At Not on file [facility] Goals Date Patient Goal Desired Activity /State Functional Status Date Assessment Result Facility 05-27-2023 Functional Status N/A [facility] 11-10-2022 Functional Status N/A [facility] Clinical Notes 09-05-2021 to 05-27-2023 Note [...] sitting or lying down. General instructions Take tirz-xtz-ixwmnxm and prescription medicines only as told by [...] provider. Document Revised: 07/06/2022 Document Reviewed: 02/16/2020 [employer] Patient Education 2022 [email or web address]. Follow Up Care 05/27/2023 11:17:41 With:Russell Chavez Address: [address] [place] [address] [employer] (1) When:05/30/2023 12:39:45 [facility] 05-27-2023 Evaluation + Plan note Extrac charli from: Title:ED Note Author:Pola Purcell PA-C te:05/27/23 Knee sprain (S83.90XA: Sprai n of unspecified site of unspecified knee, initial encounter) Orders: Knee Brace XR Knee Complete 4+ Views Right [facility]02-14-2024 History of Present illness Narrative* Bella [...] further adjustments if necessary. documented in this encounterSSM [id number] History of Present illness Narrative* Elisabet Giron NP - 05/24/2023 3:30 PM EST Maury Collaoz is a 22 y.o. female presents with [...] sub stitutions have occurred. documented in this encounterSSM [id number] History of Present illness Narrative* EFREM Mccabe [...] Allergic rhinitis Ankle sprain Anxiety Arthritis Depression ([facility]) Dislocation of finger Fracture of ankle Fracture of hand Fracture of wrist Fracture, foot Headache History of pineal cyst 2013 Knee sprain Migraine (CMS/HCC) Ovarian cyst Personal history of medical treatment Type A positive Psychogenic nonepileptic seizure (CMS/[facility]) Ruptured eardrum 2006 Scoliosis Stress fracture Tear [...] ultrasound guidance. EFREM Mccabe documented in this [facility]02-07-2024 Instructions* Patient Instructions* EFREM Mccabe - 05/19/2023 [...] cortisone under ultrasound guidance. documented in this [facility]02-05-2024 History of Present illness Narrative* Maame Whitten [...] She states she is going to call [facility] appointment, She saw Shala Conn previously. [...] Entered by _Marcela_, acting as scribe for _Randy_. Signature _Marielos JASSO_ Date _05/17/2023_. The documentation recorded by the scribe accurately reflects the service(s) I personally performed and the decisions I made. documented in this encounterSSM [id number] History of Present illness Narrative* Maame Fish [...] the decisions I made. documented in this encounterSSM [id number] Hospital Discharge instructions Patient Education 11/10/2022 19:05:26 [...] to any changes in your symptoms. Take czmm-pkv-qyhvlmo and prescription medicines only as told by [...] provider. Document Revised: 11/15/2021 Document Reviewed: 11/15/2021 [employer] Patient Education 2022 [email or web address]. 11/10/2022 19:05:26 Abdominal Pain, Adult Abdominal Pain, [...] Follow these instructions at home: Medicines Take pxau-wmt-aiclcbh and prescription medicines only as told by [...] Watch your condition for any changes. Take oukl-sft-swywqxk and prescription medicines only as told by [...] provider. Document Revised: 05/17/2020 Document Reviewed: 08/07/2019 [employer] Patient Education 2022 [email or web address]. Follow Up Care 11/10/2022 15:59:56 With:Bella Camara Address: [place] [place] [address]- Business (1) When:11/13/2022 18:55:01 Comments:Retrurn to the emergency room if your shortness of breath recurs, abdominal pain recurs or any new symptoms. [facility]08-01-2023 Evaluation + Plan noteExtracted from: Title:ED [...] With Cult Reflex XR Chest Single View [facility]05-27-2022 NoteHISTORY: Mid to lower back pain [...] and signed by Jonnie Jacob on 09/09/2021 1057[facility] SpecialistEvaluation noteNo assessment information availableZanesville City Hospital Work Phone: Evaluation note* Diagnosis It band syndrome, right- Primary Right hip pain Pain in joint, pelvic region and thigh Trochanteric bursitis of right hip [facility]* Diagnosis Trochanteric bursitis of right hip- Primary documented in this encounter [facility]* Diagnosis Nasal injury, initial encounter- Primary Generalized headache BMI 21.0-21.9, adult documented in this encounter [facility]* Diagnosis Trochanteric bursitis of right hip- Primary Levoscoliosis documented in this encounter [facility]* Diagnosis Anxiety Anxiety state, unspecified [facility] N[facility]ative No data available for this section [facility] Additional Instructions If your symptoms return/worsen or you develop any further concerns or symptoms please see your doctor or return to the emergency department immediately.[facility] Work Phone: Hospital Discharge instructions Additional Instructions Increase your intake of fluids. Take Zofran as prescribed for any nausea. Take Tamiflu to help decrease the duration of symptoms. Take Motrin Tylenol as needed for fever and chest pain. Follow-up with PCP for any persistent symptoms in 5 to 7 days.[facility] Work Phone: Hospital Discharge instructions No data available for this section [facility] No data available for this section [facility] Summary Purpose Family History No Family [...] Referral Specialty Diagnoses / Procedures Referred By Angel gupta Referred To Contact Physical Therapy Diagnoses It band syndrome, right Trochanteric bursitis of right hip Procedures [facility] OFFICE[facility]OUTPATIENT [facility] 60 MINUTES Shala Conn, PA [address] [place] [address] Daja Carter, PT [address] [place] [address] Referral ID Status Reason Start Date Expiration Date Visits Requested Visits Authorized [id number] Pending Review Specialty Services Required 05/19/2023 11/15/2023 1 1 Additional Source Comments INFORMATION SOURCE (unrecogn ized section and content) DATE CREATED AUTHOR 09/14/2018 [facility] DATE CREATED AUTHOR AUTHOR'S ORGANIZ ATION 10/01/2020 [facility] DATE CREATED AUTHOR AUTHOR'S ORGANIZ ATION 10/05/2020 [facility] DATE CREATED AUTHOR AUTHOR'S ORGANIZ ATION 09/09/2021 [facility] dical Specialist DATE CREATED AUTHOR AUTHOR'S ORGANIZ ATION 03/28/2023 [facility] DATE CREATED AUTHOR AUTHOR'S ORGANIZ ATION 10/16/2023 [facility] DATE CREATED AUTHOR AUTHOR'S ORGANIZ ATION 11/18/2023 [facility] dical Specialists EPIC Care Teams (unrecognized sec [...] Phillip Shaw , DO Emergency Provider Active Turntable Worker Relationship Specialty Start Date End Date Bella Camara MD [address] [place] [address] PCP - General Family Medicine 09/04/22 Morenita Corona, PA [address] [place] [address] PCP - Medical [employer] 09/10/22 Turntable Worker Relationship Specialty Start Date End Date Bella Camara MD [address] [place] [address] PCP - General Family Medicine 09/04/22 Morenita Corona, PA [address] [place] [address] PCP - Medical [employer] 09/10/22 Turntable Worker Relationship Specialty Start Date End Date Bella Camara MD [address] [place] [address] PCP - General Family Medicine 09/04/22 Morenita Corona, PA [address] [place] [address] PCP - Medical [employer] 09/10/22 Turntable Worker Relationship Specialty Start Date End Date Bella Camara MD [address] [place] [address] PCP - General Family Medicine 09/04/22 Morenita Corona, PA [address] [place] [address] PCP - Medical [employer] 09/10/22 Turntable Worker Relationship Specialty Start Date End Date Bella Camara MD [address] [place] [address] PCP - General Family Medicine 09/04/22 Morenita Corona, PA [address] [place] [address] PCP - Medical [employer] 09/10/22 Turntable Worker Relationship Specialty Start Date End Date Bella Camara MD [address] [place] [address] PCP - General Family Medicine 09/04/22 Morenita Corona, PA [address] [place] [address] PCP - Medical [employer] 09/10/22 Turntable Worker Relationship Specialty Start Date End Date Bella Camara MD [address] [place] [address] PCP - General Family Medicine 09/04/22 Morenita Corona PA [address] [place] [address] PCP - Medical [employer] 09/10/22 Goals (unrecognized section and content) Goals [...] BE BASED ON THE PRIMARY CLINICAL RECORDS. [employer] [facility]. provides no warranty or guarantee of the accuracy or completeness of information in this document.
--- NOTE | 2023-11-27 11:20 | PC.NURSE ---
deejay wrap and air cast applied to left foot pt tolerates well
[2023-11-27 11:21] VITALS: BP 115/62; PULSE 62; O2SAT 100
== END 2023-11-27 11:24 | disposition home or self-care (01) ==
PROVIDERS: Emergency Provider Emergency Medicine; PCP Student in an Organized Health Care Education/Training Program
DX: S93.402A Sprain of unspecified ligament of left ankle, initial encounter (principal); X50.1XXA Overexertion from prolonged static or awkward postures, initial encounter; Y93.43 Activity, gymnastics; F17.200 Nicotine dependence, unspecified, uncomplicated
CPT/HCPCS: 73610; 99283

== ENCOUNTER 2024-06-02 20:35 | Emergency (ER) | payer SELFPAY ==
[2024-06-02 20:38] VITALS: BP 121/70; PULSE 63; TEMP 36.8; O2SAT 100; BMI 21.6
--- OUTSIDE RECORDS SUMMARY | 2024-06-02 20:53 | XMS_ITS | CCD ---
Author Organization [facility] Care Team Providers Care Exhibit Carpenter Name Role Phone MISC, DOCTOR Primary Care Unavailable SABA SOLO Admitting Unavailable SABA SOLO Attending Unavailable SABA SOLO Consulting Unavailable DO Phillip Tripp Primary Care Provider DO Taran Rea Emergency Provider DO Phillip Shaw Emergency Provider UnaBella Logan Primary Care Physician [phone] Bella Camara MD Primary Care Provider Morenita Page Unavailable [phone] ASHLIE CRANE Attending Unavailable ASHLIE CRANE Admitting Unavailable Michael Hannah Attending Unavailable Michael Hannah H Attending Unavailable ELISABET GIRON Attending Unavailab BELLA Dong Attending Unavailable MIRACLE PADILLA Attending Unavailable MIRACLE PADILLA Attending Unavailable HILLS, SHALA D Referring Unavailable HILLS, SHALA D Referring Unavailable HILLS, SHALA D Attending Unavailable HILLS, SHALA D Referring Unavailable GRAZYNA GONZALEZ Attending Unavailable ELISABET GIRON Attending Unavailab SHELLY Zuniga Attending Unavailable HILLS, SHALA D Referring Unavailable HOABELLA WEBB Attending Unavailable HILLS, SHALA D Attending Unavailable HILLS, SHALA D Referring Unavailable DONELISABET COBURN Attending Unavailab MIRACLE Richardson Attending Unavailable HILLS, SHALA D Referring Unavailable HILLS, SHALA D Attending Unavailable HILLS, SHALA D Referring Unavailable KHOA RODRIGUEZ Attending Unavailable ELISABET GIRON Attending Unavailab BELLA Dong Attending Unavailable BACILIO DENIS Attending Unavailable KHOA RODRIGUEZ Attending Unavailable BELLA CAMARA Attending Unavailable GRAZYNA GONZALEZ Attending Unavailable GRAZYNA GONZALEZ Attending Unavailable GONZALEZ, GRAZYNA Shaw Attending Unavailable RODRIGUEZ, KHOA Gupta Attending Unavailable MEDVES, TREY Shaw Attending Unavailable RODRIGUEZ, KHOA T Referring Unavailable FREEMAN, ASHLIE Attending Unavailable RODRIGUEZ, KHOA T Referring Unavailable FREEMAN, ASHLIE Attending Unavailable RODRIGUEZ, KHOA T Referring Unavailable RODRIGUEZ, KHOA T Attending Unavailable FREEMAN, ASHLIE Attending Unavailable RODRIGUEZ, [...] Attending Unavailable RODRIGUEZ, KHOA Gupta Attending Unavailable PADILLA, MIRACLE Al Attending Unavailable HOA, BELLA Shaw Attending Unavailable MD Miracle Padilla Primary Care Provider TREVON Hall Emergency Provider Bella Camara MD Primary Care Provider Cuco Hall Admitting Unavailable Cuco Hall Attending Unavailable Miracle Padilla Primary Care Unavailable Grabiel Luna Admitting Unavailable Grabiel Luna Attending Unavailable Miracle Padilla MD Primary Care Provider [phone] Unavailable Unavailable Unavailable Allergies Allergy Classification Reported Allergen(s) Allergy Type Date of Onset Reaction(s) Facility (4 sources) Penicillins Drug allergy (disorder) 4 [facility] Repository (4 sources) Penicillin; Translations: [penicillin] Drug Allergy [facility] (18 sources) cefdinir Drug Allergy 2 [facility] (18 sources) Penicillins Drug Allergy 1 Rash [facility] (1 source) No Known Medication Allergies; Translations: [No Known Medication Allergies] Propensity to adverse reactions (disorder) [facility] Repository (1 source) Penicillins Drug allergy (disorder) 4 [facility] Repository Medications Current Medications Medication Drug Class(es) Dates Sig (Normalized) Sig (Original) acetaminophen 325 mg oral tablet (14 sources) acetaminophen (Tylenol) 325 MG tablet Active albuterol 0.83 mg/ml inhalation solution (20 sources) [...] INHALATION Four times daily January 31, 2020 6:10pm February 29, 2020 10:26am Start: 12-13-2018 Albuterol Sulf ate Active 2 INH Inhalation EVERY 4-6 HOURS December 13, 2018 4:27pm Start: 12-13-2018 End: 09-18-2019 Albuterol Sulfate Discontinu ed 2 INH INHALATION EVERY 4-6 HOURS December 13, 2018 12:00am September 18, 2019 9:43pm benzonatate 200 mg oral capsule (6 sources) Non-narcotic Antitussive Start: 04-08-2022 take 200 mg by mouth three times daily Benzonatate Active 200 MG PO Three times daily April 08, 2022 1:00am Start: 05-10-2017 End: 07-19-2017 take 1 capsule by mouth three times daily Benzonatate (Tessalon Perles) 100 mg capsule Discontinued 100 MG PO Three times daily May 10, 2017 1:00am July 19, 2017 12:58pm 24 hr buPROPion hydrochloride 150 mg extended release oral tablet (8 sources) Aminoketone Start: 11-10-2023 End: 12-31-2023 buPROPion XL (Wellbutrin XL) 150 MG 24 hr tablet Indications: Anxiety 2 tabs in am, 1 tab in pm 270 tablet 1 12/31/2023 Active busPIRone hydrochloride 10 mg oral tablet (20 sources) Start: 11-10-2023 take 1 tablet by mouth in the morning, then take 1 tablet by mouth in the evening, then take 1 tablet by mouth at bedtime busPIRone (Buspar) 10 MG tablet Indications: Anxiety Take 1 tablet (10 mg) by mouth in the morning and 1 tablet (10 mg) in the evening and 1 tablet (10 mg) before bedtime. 90 tablet 3 11/10/2023 Active Start: 05-26-2023 take 1 tablet by shirlene th in the morning, then take 1 tablet [...] 20 MG PO Daily October 26, 2021 12:02pm Start: 06-09-2018 End: 08-09-2018 take 60 mg by mouth once daily Duloxetine Discontinued 60 MG PO Daily June 09, 2018 1:00am August 09, 2018 2:38pm Start: 07-19-2017 End: 07-25-2017 take 10 mg by mouth once daily Duloxetine Discontinued 10 MG PO Daily July 19, 2017 12:00am July 25, 2017 9:23pm 24 hr etodolac 500 mg extended release oral tablet (6 sources) Nonsteroidal Anti-inflammatory Drug Start: 09-15-2023 End: 09-14-2024 take 1 tablet by mouth once daily etodolac XL (Lodine XL) 500 MG 24 hr tablet Indications: Trochanteric bursitis of right hip , S/P lateral meniscus repair of right knee Take 1 tablet (500 mg) by mouth Daily 30 tablet 11 09/15/2023 09/14/2024 Active Etonogestrel (Nexplanon) 68 mg Implant (3 sources) Start: 02-29-2020 Etonogestrel (Nexplanon) 68 mg Implant Active 1 IMPLANT SUBDERMAL Once February 29, 2020 1:00am Start: 02-29-2020 Etonogestrel ( Nexplanon) 68 mg Implant Active 1 IMPLANT SUBDERMAL Once February 29, 2020 12:00am loratadine 10 mg oral tablet (17 sources) Start: 09-24-2022 take 1 tablet by mouth in the morning loratadine (Claritin) 10 MG tablet Indications: Ear itching , Seasonal allergies Take 1 tablet (10 mg) by mouth in the morning. 30 tablet 2 09/24/2022 Active 1 ml medroxyPROGESTERone acetate 150 mg/ml prefilled syringe (17 sources) Progestin Start: 11-10-2023 medroxyPROGESTERone (Depo-Provera) 150 MG/ML suspension prefilled syringe injection syringe Indications: Encounter for surveillance of injectable contraceptive Inject 1 mL (150 mg) into the shoulder, thigh, or buttocks 1 (one) time for 1 dose 1 mL 3 11/10/2023 Active Start: 08-26-2022 inject 1 mL by intra muscular injection every three months medroxyPROGESTERone (Depo-Provera) 150 MG/ML suspension prefilled syringe injection syringe 1 mL Intramuscular every 3 months for 30 days 0 08/26/2022 Active meloxicam 15 mg oral tablet (12 sources) Nonsteroidal Anti-inflammatory Drug Start: 05-12-2023 End: 08-10-2023 take 1 tablet by mouth in the morning meloxicam (Mobic) 15 MG tablet Indications: Levoscoliosis , Trochanteric bursitis of right hip Take 1 tablet (15 mg) by mouth in the morning. 90 tablet 0 05/12/2023 08/10/2023 Active Nebulizer misc (17 sources) Start: 02-10-2023 End: 02-10-2024 Nebulizer misc Indications: Shortness of breath 1 each every 4 (four) hours. 1 each 02/10/2023 02/10/2024 Active Start: 02-10-2023 End: 02-10-2024 Nebulizer misc Indications: Shortness of breath 1 each every 4 (four) hours. 1 each 0 02/10/2023 02/10/2024 Active ondansetron 4 mg oral tablet (10 sources) Serotonin-3 Receptor Antagonist Start: 04-12-2022 End: 02-01-2024 take 1 tablet by mouth every eight hours as needed for vomiting and nausea and nausea and nausea ondansetron (Zofran) 4 MG tablet Indications: Nausea Take 1 tablet (4 mg) by mouth every 8 (eight) hours if needed for vomiting or nausea 40 tablet 1 11/03/2023 02/01/2024 Active Start: 04-08-2022 take 4 mg by mouth e very six hours Ondansetron Active 4 MG PO Q6H April 08, 2022 1:00am oseltamivir 75 mg oral capsule (5 sources) Neuraminidase Inhibitor Start: 04-12-2022 take 1 capsule by mouth every twelve hours Oseltamivir (Tamiflu) 75 mg capsule Active 75 MG PO Q12H 10 April 12, 2022 1:00am Start: 05-10-2017 End: 05-15-2017 take 1 capsule by mouth twice daily Oseltamivir (Tamiflu) 75 mg capsule Discontinued 75 MG PO Twice daily 01 14May 10, 2017 1:00am May 15, 2017 1:04am Pnv Cmb#95-Ferrous Fumarate-Fa (1 source) Start: 09-03-2018 take 1 tablet by mouth once daily Pnv Cmb#95-Ferrous Fumarate-Fa Active 1 TAB Oral Daily September 03, 2018 1:03pm predniSONE 20 mg oral tablet (7 sources) Start: 01-06-2024 take 40 mg by mouth once daily at mealtime Prednisone Active 40 MG PO Daily January 06, 2024 12:00am administer with food or milk Start: 05-20-2023 take 5 tablets by mo [facility] once daily, then take 4 tablets by [...] x3 days 45 tablet 0 05/20/2023 Active rimegepant 75 mg disintegrating oral tablet (6 sources) Start: 10-04-2023 take 1 tablet by mouth every other day Rimegepant Sulfate (Nurtec) 75 MG tablet dispersible Indications: Acute migraine (CMS/HCC) Take 1 tablet by mouth every other day 30 tablet 11 10/04/2023 Active sucralfate 1000 mg oral tablet (3 sources) Aluminum Complex Start: 11-10-2022 End: 11-17-2022 take 1 tablet by mouth four times daily sucralfate 1 g Tab 1 gm = 1 tab(s), Oral, QID, X 7 day(s), # 28 tab(s), Refills(s) 0 Start Date: 11/10/22 Stop Date: 11/17/22 Status: Ordered Start: 04-12-2022 take 1 tablet by [facility] twice daily Sucralfate (Carafate) 1 gram tablet Active 1 GM PO Twice daily 10 April 13, 2022 12:39am tiZANidine 4 mg oral tablet (5 sources) Central alpha-2 Adrenergic Agonist Start: 09-14-2023 take 1 tablet by mouth every eight hours as needed for muscle spasms and muscle spasms tiZANidine (Zanaflex) 4 MG tablet Indications: Muscle spasm Take 1 tablet (4 mg) by mouth every 8 (eight) hours if needed for muscle spasms for up to 10 days 30 tablet 09/14/2023 Active topiramate 25 mg oral tablet (6 sources) Start: 10-04-2023 End: 10-03-2024 take 1 tablet by mouth at bedtime topiramate (Topamax) 25 MG tablet Indications: Atypical migraine (CMS/HCC) Take 1 tablet (25 mg) by mouth at bedtime 30 tablet 11 10/04/2023 10/03/2024 Active traZODone hydrochloride 50 mg oral tablet (20 sources) Serotonin Reuptake Inhibitor Start: 08-06-2023 End: 12-30-2024 take 1 tablet by mouth at bedtime traZODone (Desyrel) 50 MG tablet Indications: Difficulty sleeping Take 1 tablet (50 mg) by mouth at bedtime 90 tablet 3 12/31/2023 12/30/2024 Active Start: 01-25-2023 take 0.5 tablet by m outh at bedtime traZODone (Desyrel) 50 MG tablet [...] 05/12/2023 Discontinued cefdinir 300 mg oral capsule (3 sources) Cephalosporin Antibacterial Start: 09-17-2021 End: 10-26-2021 take 300 mg by mouth twice daily Cefdinir Discontinued 300 MG PO Twice daily 20 September 17, 2021 12:00am October 26, 2021 12:03pm cephalexin 500 mg oral capsule (6 sources) Cephalosporin Antibacterial Start: 09-03-2018 End: 09-09-2018 take 1 capsule by mouth twice daily Cephalexin (Keflex) 500 mg capsule Discontinued 500 MG PO Twice daily 10 September 03, 2018 12:00am September 09, 2018 11:03pm Start: 04-14-2018 End: 06-04-2018 take 1 capsule by mouth twice daily Cephalexin (Keflex) 500 mg capsule Discontinued 500 MG PO Twice daily 14 April 14, 2018 1:00am June 04, 2018 9:24pm docusate sodium 100 mg oral capsule (4 sources) Start: 03-04-2019 End: 09-18-2019 take 100 mg by mouth once daily at bedtime Docusate Sodium Discontinued 100 MG PO Daily at bedtime March 04, 2019 1:00am September 18, 2019 9:43pm Norethindrone-Ethin Estradiol (3 sources) Estrogen Start: 05-10-2017 End: 07-25-2017 take 1 tablet by mouth once daily Norethindrone-Ethin Estradiol (Balziva (28)) 0.4-35 mg-mcg tablet Discontinued 1 TAB PO Daily May 10, 2017 1:00am July 25, 2017 9:23pm Start: 05-10-2017 End: 07-25-2017 take 1 tablet by mouth once daily Norethindrone-Ethin Estradiol (Balziva (28)) 0.4-35 mg-mcg tablet Discontinued 1 TAB PO Daily May 10, 2017 12:00am July 25, 2017 8:23pm Etonogestrel-Ethinyl Estradi ol (Nuvaring) 0.12-0.015 mg/24 hr Ring (3 sources) Start: 03-18-2021 End: 04-07-2022 Etonogestrel-Ethinyl Estradi ol (Nuvaring) 0.12-0.015 mg/24 hr Ring Discontinued 1 VAG RING VAGINAL EVERY 4 WEEKS March 18, 2021 1:00am April 08, 2022 12:24am Start: 03-18-2021 End: 04-07-2022 Etonogestrel-Ethinyl Estradi ol (Nuvaring) 0.12-0.015 mg/24 hr Ring Discontinued 1 VAG RING VAGINAL EVERY 4 WEEKS March 18, 2021 12:00am April 07, 2022 11:24pm ferrous sulfate 325 mg oral tablet (3 sources) Start: 10-18-2017 End: 04-12-2018 take 325 mg by mouth twice daily Ferrous Sulfate Discontinued 325 MG PO Twice daily October 18, 2017 12:00am April 12, 2018 3:35am hydrOXYzine pamoate 50 mg oral capsule (3 sources) Antihistamine Start: 10-11-2018 End: 10-29-2018 take 1 capsule by mouth every eight hours Hydroxyzine Pamoate (Vistaril) 50 mg capsule Discontinued 50 MG PO Q8H October 11, 2018 12:00am October 29, 2018 12:32pm ibuprofen 600 mg oral tablet (20 sources) Nonsteroidal Anti-inflammatory Drug Start: 09-17-2021 End: 10-26-2021 take 600 mg by mouth every eight hours Ibuprofen Discontinued 600 MG PO Q8H September 17, 2021 12:00am October 26, 2021 12:03pm Start: 02-29-2020 End: 03-18-2021 take 600 mg by mouth three times daily Ibuprofen Discontinued 600 MG PO Three times daily February 29, 2020 1:00am March 18, 2021 10:50am Start: 09-18-2019 End: 02-29-2020 take 800 mg by mouth three times daily Ibuprofen Discontinued 800 MG PO Three times daily September 18, 2019 12:00am February 29, 2020 10:26am Start: 03-03-2019 End: 09-18-2019 Ibuprofen Discontinued 800 M G PO every 6 to 8 hours March 03, 2019 1:00am September 18, 2019 9:43pm Start: 04-14-2018 End: 06-04-2018 take 800 mg by mouth three times daily Ibuprofen Discontinued 800 MG PO Three times daily April 14, 2018 1:00am June 04, 2018 9:24pm Start: 02-22-2018 End: 03-13-2018 take 600 mg by mouth three times daily Ibuprofen Discontinued 600 MG PO Three times daily February 23, 2018 12:44am March 13, 2018 8:19pm Start: 07-25-2017 End: 10-18-2017 take 600 mg by mouth every eight hours Ibuprofen Discontinued 600 MG PO Q8H July 25, 2017 12:00am October 18, 2017 1:25pm Start: 05-10-2017 End: 07-19-2017 Ibuprofen Discontinued 600 M G PO every 6 to 8 hours May 10, 2017 1:00am July 19, 2017 12:58pm End: 05-19-2023 ibuprofen 200 MG tablet Take 600 mg by mouth if needed for mild pain OTC 0 05/19/2023 Discontinued methocarbamol 500 mg oral tablet (3 sources) Muscle Relaxant Start: 12-23-2019 End: 02-29-2020 take 500 mg by mouth three times daily Methocarbamol Discontinued 500 MG PO Three times daily December 23, 2019 10:28am February 29, 2020 10:26am metoclopramide 10 mg oral tablet (3 sources) Dopamine-2 Receptor Antagonist Start: 03-28-2018 End: 04-12-2018 take 10 mg by mouth every six hours Metoclopramide Hcl Discontinued 10 MG PO Q6H March 28, 2018 9:37pm April 12, 2018 3:35am minocycline 100 mg oral capsule (2 sources) Tetracycline-class Drug Start: 02-01-2023 End: 05-12-2023 take 1 capsule by mouth in the morning minocycline 100 MG capsule Indications: Acne vulgaris Take 1 capsule (100 mg) by mouth in the morning. 30 capsule 2 02/01/2023 05/12/2023 Discontinued naproxen 500 mg oral tablet (3 sources) Nonsteroidal Anti-inflammatory Drug Start: 07-19-2017 End: 07-25-2017 take 500 mg by mouth twice daily at mealtime Naproxen Discontinued 500 MG PO Twice daily 14 July 19, 2017 12:00am July 25, 2017 9:23pm administer with food or milk nicotine 2 mg chewing gum (3 sources) Cholinergic Nicotinic Agonist Start: 06-09-2018 End: 06-21-2018 Nicotine (Polacrilex) (Nicorelief) 2 mg Gum Discontinued 2 MG BUCCAL Every 2 hours 60 June 09, 2018 1:00am June 21, 2018 8:44pm nitrofurantoin, macrocrystals 25 mg / nitrofurantoin, monohydrate 75 mg oral capsule (6 sources) Nitrofuran Antibacterial Start: 11-11-2018 End: 11-21-2018 take 1 capsule by mouth every twelve hours at mealtime Nitrofurantoin Monohyd/M-Cryst (Macrobid) 100 mg capsule Discontinued 100 MG PO Q12H 6 3 November 11, 2018 12:00am November 21, 2018 4:12pm must administer with a meal/food Start: 07-20-2017 End: 07-25-2017 take 1 capsule by mouth every twelve hours at mealtime Nitrofurantoin Monohyd/M-Cryst (Macrobid) 100 mg capsule Discontinued 1 CAP PO Q12H July 20, 2017 12:00am July 25, 2017 9:23pm administer with a meal/food; swallow whole; do not open, crush, dissolve , or chew Pnv Cmb#95-Ferrous Fumarate-Fa () 28 mg iron- 800 mcg Tablet (3 sources) Start: 09-03-2018 End: 09-18-2019 take 1 tablet by mouth once daily Pnv Cmb#95-Ferrous Fumarate-Fa () 28 mg iron- 800 mcg Tablet Discontinued 1 TAB PO Daily September 03, 2018 12:00am September 18, 2019 9:43pm Start: 09-03-2018 End: 09-18-2019 take 1 tablet by mouth once daily Pnv Cmb#95-Ferrous Fumarate-Fa () 28 mg iron- 800 mcg Tablet Discontinued 1 TAB PO Daily September 02, 2018 11:00pm September 18, 2019 8:43pm (3 sources) Start: 10-18-2017 End: 04-12-2018 take 2 tablets by mouth once daily Discontinued 2 TAB PO Daily October 18, 2017 12:00am April 12, 2018 3:35am Start: 10-18-2017 End: 04-12-2018 take 2 tablets [...] PO Four times daily March 18, 2021 11:51am Sarah 17th, 2022 12:03pm Start: 08-16-2018 End: 09-03-2018 take 25 mg by mouth every six hours Promethazine Discontinued 25 MG PO Q6H August 16, 2018 12:00am September 03, 2018 12:07pm Start: 08-16-2018 End: 09-03-2018 Promethazine (Phenergan) 25 mg suppository Discontinued 25 MG MN Q4H 6 August 16, 2018 12:00am September 03, 2018 12:07pm Start: 08-09-2018 End: 09-03-2018 take 25 mg by mouth three times daily Promethazine Discontinued 25 MG PO Three times daily August 09, 2018 12:00am September 03, 2018 12:07pm Start: 03-13-2018 End: 04-12-2018 take 25 mg by mouth every six hours Promethazine Discontinued 25 MG PO Q6H March 13, 2018 1:00am April 12, 2018 3:35am traMADol hydrochloride 50 mg oral tablet (3 sources) Opioid Agonist Start: 11-11-2018 End: 11-21-2018 take 1 tablet by mouth every eight hours Tramadol (Ultram) 50 mg tablet Discontinued 50 MG PO Q8H 6 2 November 11, 2018 12:00am November 21, 2018 4:11pm Vitamin D3 (3 sources) Start: 10-18-2017 End: 04-12-2018 take 68748 [IU] by mouth once daily Vitamin D3 Discontinued [id number] UNIT PO Daily October 18, 2017 12:00am April 12, 2018 3:35am Start: 10-18-2017 End: 04-12-2018 take 38478 [IU] by mouth once daily Vitamin D3 Discontinued [id number] UNIT PO Daily October 17, 2017 11:00pm April 12, 2018 2:35am Problems Active Problems Problem Classification Problem Date Documented Da te Episodic/Chronic Abdominal pain (1 source) Abdominal pain; Translations: [Unspecified abdominal pain] Onset: 11-10-2022 Episodic Anxiety disorders (20 sources) Mixed anxiety and depressive disorder; Translations: [Anxiety] Onset: 12-17-2016 10-11-2018 Chronic Fever of unknown origin (2 sources) Fever; Translations: [Fever, unspecified] 04-12-2022 Episodic Headache; including migraine (9 sources) Headache; Translations: [Headache] 07-19-2017 Episodic Influenza (9 sources) Influenza; Translations: [Influenza due to Influenza A virus] 04-08-2022 Episodic Miscellaneous mental health disorders (20 sources) Dissociative convulsions; Translations: [Conversion disorder with seizures or convulsions] Onset: 11-14-2018 07-20-2017 Chronic Mood disorders (20 sources) Severe major depression; Translations: [Major depressive disorder, single episode, severe without psychotic features] Onset: 11-25-2022 06-05-2018 Chronic Nonspecific chest pain (2 sources) Chest pain; Translations: [Chest pain, unspecified] 04-12-2022 Episodic Other acquired deformities (2 sources) Levoscoliosis; Translations: [Other forms of scoliosis, site unspecified] 05-12-2023 Chronic Other bone disease and musculoskeletal deformities (18 sources) Scoliosis of lumbar spine; Translations: [Other idiopathic scoliosis, lumbar region] Onset: 09-09-2022 09-09-2022 Chronic Other complications of (4 sources) Vomiting of , unspecified; Translations: [VOMITING OF UNSPECIFIED] Onset: 09-10-2018 Episodic Other complications of (4 sources) Complication of , childbirth and/or the puerperium; Translations: [Other specified related conditions, unspecified trimester] 09-03-2018 Episodic Other complications of (4 sources) Asymptomatic bacteriuria in ; Translations: [Asymptomatic bacteriuria during ] 09-03-2018 Episodic Other complications of (4 sources) Vomiting of ; Translations: [Vomiting of , unspecified] 08-16-2018 Episodic Other connective tissue disease (4 sources) Pain in lower limb; Translations: [Pain in right leg] 10-11-2018 Episodic Other connective tissue disease (2 sources) Iliotibial band friction syndrome of right knee; Translations: [Iliotibial band syndrome, right leg] 05-19-2023 Episodic Other injuries and conditions due to external causes (3 sources) Injury of rotator cuff; Translations: [Unspecified [...] hip] 05-19-2023 Episodic Other upper respiratory infections (10 sources) Upper respiratory infection; Translations: [Acute upper respiratory infection, unspecified] 01-31-2020 Episodic Otitis media and related conditions (3 sources) Acute left otitis media; Translations: [Otitis media, unspecified, left ear] 09-17-2021 Episodic Poisoning by other medications and drugs (4 sources) Acetaminophen overdose; Translations: [Poisoning by 4-Aminophenol derivatives, accidental (unintentional), initial encounter] 06-05-2018 Episodic Residual codes; unclassified (1 source) Tobacco user; Translations: [Chews tobacco] Chronic Residual codes; unclassified (3 sources) Tobacco user; Translations: [Tobacco use] 06-05-2018 Episodic Residual codes; unclassified (2 sources) Body mass index 20-24 - normal; Translations: [Body mass index (BMI) 21.0-21.9, adult] 05-25-2023 Episodic Residual codes; unclassified (2 sources) Difficulty sleeping ; Translations: [Sleep disorder, unspecified] 12-31-2023 Episodic Residual codes; unclassified (1 source) 12 weeks gestation of ; Translations: [12 WEEKS GESTATION OF ] Onset: 09-13-2018 Screening and history of mental health and substance abuse codes (1 source) Personal history of nicotine dependence; Translations: [PERSONAL HISTORY OF NICOTINE DEPEND] Onset: 09-13-2018 Episodic Sprains and strains (11 sources) Sprain of knee; Translations: [Sprain of unspecified site of unspecified knee, initial encounter] Onset: 05-27-2023 07-25-2017 Episodic Substance-related disorders (20 sources) Cannabis abuse; Translations: [Cannabis abuse, uncomplicated] Onset: 09-24-2022 01-17-2019 Chronic Comment on above: Added secondary to d ocumentation in Social History. Suicide and intentional self-inflicted injury (1 source) Suicidal intent; Translations: [Feeling like committing suicide] Chronic Suicide and intentional self-inflicted injury (3 sources) Suicidal intent; Translations: [Suicidal ideations] 06-05-2018 Episodic Superficial injury; contusion (3 sources) Contusion of hand; Translations: [Contusion of right hand, initial encounter] 10-26-2021 Episodic Unclassified (1 source) Other low back pain; Translations: [Other low back pain] Onset: 01-06-2024 Urinary tract infections (4 sources) Urinary tract infectious disease; Translations: [Urinary tract infection, site not specified] 07-20-2017 Episodic Past or Other Problems Problem Classification Problem Date Documented Date Episodic/Chronic Genitourinary symptoms and ill-defined conditions (18 sources) Dysuria; Translations: [Dysuria] Onset: 02-01-2023 Resolved: 05-26-2023 02-01-2023 Episodic Inflammatory diseases of female pelvic organs (18 sources) Acute vaginitis; Translations: [Acute vaginitis] Onset: 01-01-2023 Resolved: 05-26-2023 01-01-2023 Episodic Other connective tissue disease (12 sources) Trochanteric bursitis of right hip; Translations: [Trochanteric bursitis, right hip] Onset: 05-31-2023 05-19-2023 Episodic Other connective tissue disease (18 sources) Bursitis of olecranon of left elbow; Translations: [Olecranon bursitis, left elbow] Onset: 09-09-2022 Resolved: 11-25-2022 11-25-2022 Episodic Other female genital disorders (1 source) Other specified noninflammatory disorders of vagina; Translations: [Other specified noninflammatory disorders of vagina] Onset: 03-26-2023 Episodic Other lower respiratory disease (12 sources) Cough; Translations: [Acute cough] Onset: 01-01-2023 Resolved: 05-26-2023 01-01-2023 Episodic Other lower respiratory disease (6 sources) Cough; Translations: [Acute cough] Onset: 01-01-2023 Resolved: 05-26-2023 05-26-2023 Episodic Other non-traumatic joint disorders (6 sources) Pain in right knee; Translations: [Pain in joint, lower leg] Onset: 05-31-2023 08-20-2023 Episodic Other skin disorders (18 sources) Acne vulgaris; Translations: [Acne vulgaris] Onset: 02-01-2023 02-01-2023 Episodic Residual codes; unclassified (6 sources) History of arthroscopy of knee joint; Translations: [Other specified postprocedural states] Onset: 08-20-2023 08-20-2023 Episodic Spondylosis; intervertebral disc disorders; other back problems (20 sources) Sciatica; Translations: [Other specified dorsopathies, lumbosacral region] Onset: 09-09-2022 09-09-2022 Episodic Results Test Name Value Interpretation Reference Range Facility HEPATITIS B SURF AB QUANTon 05-25-2024 HEPATITIS B SURF AB QUANT 9.1 Abnormal Immunity>10 mIU/mL [facility] Comment on above: Status of Immunity A nti-HBs Level Inconsistent with Immunity 0.0 - 10.0 Consistent with Immunity >10.0 Interpretation and review of laboratory results Abnormal [facility] MEASLES/MUMPS/RUBELLA IMMUNI TYon 05-25-2024 MEASLES ANTIBODIES, IGG >300.0 Immu ne >16.4 AU/mL [facility] Comment on above: Negative <13.5 Equivocal 13.5 - 16.4 Positive >16.4 Presence of antibodies to Rubeola is presumptive evidence of immunity except when acute infection is suspected. MUMPS ABS, IGG 69.4 AU/mL Immune >10.9 [facility] Comment on above: Negative <9.0 Equivocal 9.0 - 10.9 Positive >10.9 A positive result generally indicates past exposure to Mumps virus or previous vaccination. Performed at: [address] [id number] Sole Blacker: Nikita Humphries PhD, Phone: [phone] RUBELLA ANTIBODIES, IGG 2.80 Immu ne >0.99 index [facility] Comment on above: Non-immune <0.90 Equivocal 0.90 - 0.99 Immune >0.99 No Panel Informationon 05-25 [facility] VARICELLA-ZOSTER V AB, IGGon 05-25-2024 VARICELLA-ZOSTER V AB, IGG Non-Reactive Non Reactive [facility] Comment on above: Please note refere nce interval change A Reactive result is considered evidence of immunity to VZV. Reactive indicates that VZV IgG was detected consistent with previous infection and/or vaccination. A Non Reactive result indicates that VZV IgG was not detected suggesting that immunity has not been acquired. Performed at: - [address] [id number] Sole Blacker: Nikita Humphries PhD, Phone: [phone] XR Chest 2 Viewson XR Chest 2 [...] mGy = . DAP = . Normal [facility] MR KNEE RIGHT WO IV CONTRAST on [...] of the medial meniscus. ELECTRONICALLY SIGNED BY: DO J Carlos Chou Not Available Comment on above: Order Comment: Left ear surgery Consent for Treatmenton 05-13 Consent for Treatment [id number] [facility] [id number]#1 .00TIFF Normal [facility] Discharge Instructionson Discharge Instructions [id number]# 1.00TIFF Normal [facility] ED Clinical Summaryon 2023 ED Clinical Summary [place] [id number] ED Clinical Summary Person Information Name: MAURY COLLAZO Lisa/[place] Age: 22 Years : 2000 Sex: Female Language: Lebanese PCP: Hoa JASSO, Bella Shaw Marital Status: [...] 05/27/2023 13:04:43 05/27/2023 13:04:43 05/27/2023 13:04:43 ADDRESS: [facility] [address] [facility] [id number] [facility] DOC NOTES: MEDICAL INFORMATION: Prescriptions Given: Medications to Continue with No Changes Other Medications promethazine (promethazine 25 mg Tab) 1 Tablets By Mouth every 6 hours as needed as needed for nausea/vomiting. Refills: 0. PATIENT EDUCATION INFORMATION: Instructions: Knee Sprain, Adult Follow up: With: Address: When: Russell Chavez [address] [place], [place] [id number] Business (7) In 3 days 05/30/2023 DIAGNOSIS: Knee sprain Normal [facility] ED Noteon 05-27-2023 ED Note [id number]# 1.00TIFF Normal [facility] ED Note-Physicianon 05-27-19 ED Note-Physician Basic Information [...] Russell Scott In 3 days 05/30/2023 EST [address] [place] [address]- Business (1) Additional Instructions: Patient Education Knee [...] made to ensure accuracy, however, inadvertently computerized bulb packer mistakes may be present. Appropriate healthcare PPE [...] = na Signed By: Kalin Goldberg MD [facility] Comment on above: Result Comment: Elec [...] or lying down. General instructions ? Take cnia-xvs-ksxnctl and prescription medicines only as told by [...] Reviewed: 02/16/2020 Elsevier Patient Education ? 2022 [employer] Normal [facility] ED Patient Summaryon 024 ED Patient Summary [address] [place] [address] Patient Discharge Instructions Person Information Name: MAURY COLLAZO Age: 22 Years Arrival Date: 05/27/2023 11:15:44 Discharge Diagnosis: Knee sprain Primary Care Physician: Bella Camara MD Provider Information Primary Provider: Michael Hannah M.D. Advanced Fingernail Former:Pola Purcell PA-C The exam and treatment you received in the Emergency Department were for an urgent problem and are not intended as complete care. It is important that you follow up with a doctor, nurse practitioner, or physician?s billing and accounting staff assistant for ongoing care. If your symptoms [...] Follow-up Instructions: With: Address: When: Russell Chavez [address] [place], [place] [id number] Business (1) In 3 days 05/30/2023 In the event that this physician does not participate in your insurance network, please consult with your insurance company to find a nearby participating provider. Patient Education Materials: Knee Sprain, Adult A MESSAGE TO ALL PATIENTS REGARDING OPIOIDS PRESCRIPTION OPIOIDS: WHAT YOU NEED TO KNOW Prescription opioids can be used to help relieve naxoecna-vm-fpispo pain and are often prescribed following a [...] be struggling with addiction, tell your health pet care technician and ask for guidance or call [facility] National Helpline at 3-934-508-EBUE. v Source: US Department of Health (more content not included)... Normal [facility] XR Knee Complete 4+ Views Alissa freedman [...] Signed by: Kalin Goldberg MD Transcribed by: RYAN Technologist: [place] Technical Comments Radiation Dose: Ka,r in mGy = na DAP = na Normal [facility] XR Hip - right 3 [facility] Result: AP pelvis bilateral hip and frog view of the right hip taken in the office today which do not demonstrate any congenital abnormalities with a femoral head or acetabulum no evidence of acute fracture or bony tumor seen. [facility] Rad[facility] Study observation (narrative) [facility] XR Lumbar spine 4 [facility] Result: AP lateral and oblique of the lumbar spine taken in the office which he end demonstrates no change in her thoracolumbar scoliosis she does have noted Schmorl nodes multiple discs and developing some early facet hypertrophy in the lumbar spine [facility] Radiology Study observation (narrative) [facility] 03-26-2023 L - -------- Specimen: [id number] Received: 03/29/23 Status: MARYA Trish Num: [id number] Spec Type: Surgical Subm Dr: GRABIEL LUNA MD Tissues: A Skin Cyst (VAGINAL CYST WALL) Procedures: HE, Gross/Micro L3 -------- Age/ Patient Sex Location Account Attending Physician -------- Maury Collazo 22/F [place] [id number] GRABIEL LUNA MD -------- SPEC NUM: [id number] RECD: 03/29/23 STATUS: MARYA CERNA NUM: [id number] BASIL: 03/26/23- [facility] DR: GRABIEL LUNA MD ENTERED: 03/29/23-4 [facility] DR: Jamie [facility] SPEC TYPE: Surgical DEPT: S ORDERED: HE, Gross/Micro L3 ORDERED: HE, Gross/Micro L3 Pathological Diagnosis Cyst, vagina, excision: Benign vaginal wall cyst. Clinical Information Vaginal cyst Gross Description Received in formalin labeled with the patient's name, date of and vaginal cyst wall is a 2.7 x 1.5 x 0.7 cm aggregate of ralph brown membranous tissue. Entirely submitted in one cassette labeled A1. Microscopic Description One H E slide reviewed. The microscopic examination confirms the diagnosis. CPT Codes 71932 -------- -------- Specimen: [id number] Received: 03/29/23 Status: MARYA Walshblake Num: [id number] Spec Type: Surgical Subm Dr: GRABIEL LUNA MD Tissues: A Skin Cyst (VAGINAL CYST WALL) Procedures: Basil PRATHER/Harmony L3 -------- Patient: Maury Collazo [id number] (Continued) -------- Signed (signature on file) Jessica Osorio MD 03/30/235 Normal [facility] XR Chest Single Viewon 11-11 XR Chest [...] mGy = na DAP = na Normal [facility] Auto Diffon 11-10-2022 Basophils/100 WBC (Bld) 0.5 % Normal 0.0-2.0 [facility] Comment on above: Order Comment: Order Added by Discern Expert. Performed By: #### 2 674004, 7618948, 91618776, 6701014, 8851634, 52927868, 9141893, 1373978 ####[facility] [address] [place] [address] Basophils/Leukocytes Auto (Bld) [Pure # fraction] 0.0 E9/L Normal 0.0-0.2 [facility] Comment on above: Order Comment: Order Added by Discern Expert. Performed By: #### 2 368402, 4568526, 19606568, 1439244, 1962299, 28745364, 5169203, 7598145 ####[facility] [address] [place] [address] Eosinophils/100 WBC (Bld) 1.0 % Normal 0.0-8.0 [facility] Comment on above: Order Comment: Order Added by Discern Expert. Performed By: #### 2 400397, 7722790, 14758678, 0078135, 7813572, 31083223, 1974091, 5545617 ####[facility] [address] [place] [address] Eosinophils/Leukocytes Auto (Bld) [Pure # fraction] 0.1 E9/L Normal 0.0-0.5 [facility] Comment on above: Order Comment: Order Added by Discern Expert. Performed By: #### 2 120671, 2914753, 64938139, 9062381, 2867045, 39763338, 3937632, 5769887 ####[place] [address] [place] [address] Lymphocytes/100 WBC (Bld) 26.5 % Normal 14.0-50.0 [facility] Comment on above: Order Comment: Order Added by Discern Expert. Performed By: #### 2 266982, 0783814, 07103772, 4672499, 7264858, 91614076, 8911776, 0275760 ####[place] [place] [address] Lymphocytes/Leukocytes Auto (Bld) [Pure # fraction] 2.3 E9/L Normal 1.0-4.0 [facility] Comment on above: Order Comment: Order Added by Discern Expert. Performed By: #### 2 421885, 3556724, 40282035, 1667684, 9291158, 67423686, 7888725, 6189329 ####[place] [address] [place] [address] Monocytes/100 WBC (Bld) 5.2 % Normal 4.0-14.0 [facility] Comment on above: Order Comment: Order Added by Discern Expert. Performed By: #### 2 959647, 2776855, 84479759, 6119858, 0690433, 89022603, 5304754, 0357740 ####[place] [address] [place] [address] Monocytes/Leukocytes Auto (Bld) [Pure # fraction] 0.4 E9/L Normal 0.2-1.0 [facility] Comment on above: Order Comment: Order Added by Discern Expert. Performed By: #### 2 943599, 8006610, 65840224, 9643229, 0473445, 88590474, 8007962, 4927478 ####[facility] [address] [place] [address] Neutrophils/100 WBC (Bld) 66.8 % Normal 36.0-75.0 [facility] Comment on above: Order Comment: Order Added by Discern Expert. Performed By: #### 2 660844, 5047275, 39931035, 2745757, 1892649, 64812212, 8493694, 1145296 ####[facility] [address] [place] [address] Neutrophils/Leukocytes Auto (Bld) [Pure # fraction] 5.7 E9/L Normal 2.0-7.5 [facility] Comment on above: Order Comment: Order Added by Discern Expert. Performed By: #### 2 912107, 2096314, 53061140, 7930513, 1432792, 17363854, 8316411, 6670288 ####[facility] [address] [place] [address] BMPon 11-10-2022 Creatinine [Mass/Vol] 0.8 mg/dL Normal 0.5-1.3 [facility] Comment on above: Performed By: #### 2 050963, 3842102, 85509527, 7330192, 1875393, 64666938, 9467086, 7648608 ####[facility] [address] [place] [address] Urea nitrogen [Mass/Vol] 13 mg/dL Normal 5-21 [facility] Comment on above: Performed By: #### 2 789265, 8585126, 31942573, 8198341, 0979995, 50408388, 0168566, 1914631 ####[facility] [address] [place] [address] Urea nitrogen/Creatinine [Mass ratio] 16 No Units Normal 10-20 [facility] Comment on above: Performed By: #### 2 740847, 0626315, 14714349, 0006855, 6112358, 59214121, 4437811, 2470803 ####[facility] [address] [place] [address] Anion gap [Moles/Vol] 13 mmol/L Normal 6-16 [facility] Comment on above: Performed By: #### 2 563373, 6309781, 87740588, 1144473, 7793883, 85080268, 5885874, 4101127 ####[facility] [address] [place] [address] Calcium [Mass/Vol] 9.7 mg/dL Normal 8.9-11.1 [facility] Comment on above: Performed By: #### 2 612588, 2778291, 86476052, 5169670, 8971100, 78750475, 2331809, 3451052 ####[facility] [address] [place] [address] Chloride [Moles/Vol] 105 mmol/L Normal 101-111 [facility] Comment on above: Performed By: #### 2 161916, 0785017, 80933154, 2310390, 0187791, 60991220, 0014584, 7783219 ####[facility] [address] [place] [address] CO2 [Moles/Vol] 24 mmol/L Normal 21-31 [facility] Comment on above: Performed By: #### 2 994840, 2557420, 43690823, 4197050, 3109500, 61549369, 9636509, 5594508 ####[facility] [address] [place] [address] Glucose [Mass/Vol] 96 mg/dL Normal 55-199 [facility] Comment on above: Result Comment: If t his glucose result represents a fasting glucose, interpretation should refer to the following reference range: 55-99 mg/dL Performed By: #### 2 925781, 9299754, 48872500, 0042659, 6379128, 11224850, 1512803, 3141782 ####[facility] [address] [place] [address] Potassium [Moles/Vol] 3.8 mmol/L Normal 3.5-5.3 [facility] Comment on above: Performed By: #### 2 981581, 5616671, 36624015, 6951217, 1286176, 28898088, 8309489, 0945023 ####[facility] [address] [place] [address] Sodium [Moles/Vol] 138 mmol/L Normal 135-145 [facility] Comment on above: Performed By: #### 2 801329, 1552289, 91339095, 9124789, 8784249, 27643030, 0103512, 6684942 ####[place] [address] [place] [address] CBC w/ Auto Diffon 3 Erythrocyte distribution width (RBC) [Ratio] 13.5 % Normal 10.9-14.2 [facility] Comment on above: Performed By: #### 2 320922, 2037329, 61164378, 4903403, 4760905, 43095958, 6391681, 5912224 ####[place] [address] [place] [address] Hematocrit (Bld) [Volume fraction] 40.4 % Normal 34.0-46.0 [facility] Comment on above: Performed By: #### 2 675941, 2754042, 23499441, 3068648, 7669855, 92774970, 6698144, 6206976 ####[facility] [address] [place] [address] Hemoglobin (Bld) [Mass/Vol] 13.7 g/dL Normal 12.0-16.0 [facility] Comment on above: Performed By: #### 2 087864, 4656888, 14308472, 5323864, 5516976, 96422838, 2824179, 5199493 ####[facility] [address] [place] [address] MCH (RBC) [Entitic mass] 30.0 pg Normal 27.0-34.0 [facility] Comment on above: Performed By: #### 2 219089, 4889930, 26346654, 6948630, 1441378, 15178203, 6173703, 5036340 ####[facility] [address] [place] [address] MCHC (RBC) [Mass/Vol] 33.9 g/dL Normal 31.4-36.0 [facility] Comment on above: Performed By: #### 2 206738, 3562257, 43670223, 3134289, 2590248, 89413717, 6495926, 6274131 ####[address] [address] MCV (RBC) [Entitic vol] 88.6 fL Normal 80.0-100.0 [facility] Comment on above: Performed By: #### 2 463052, 1374970, 87560712, 9914498, 6186265, 79652096, 6150965, 2979686 ####[address] [address] Platelet mean volume (Bld) [Entitic vol] 10.8 fL Normal 6.4-10.8 [facility] Comment on above: Performed By: #### 2 759114, 5720963, 25482541, 6412920, 4317808, 75926209, 7477351, 5728898 ####[facility] [address] [place] [address] Platelets (Bld) [#/Vol] 192.0 E9/L Normal 150.0-500.0 [facility] Comment on above: Performed By: #### 2 880556, 2216764, 70986560, 5629605, 5707282, 23700691, 8398894, 7495158 ####[address] [address] RBC (Bld) [#/Vol] 4.6 E12/L Normal 4.3-5.9 [facility] Comment on above: Performed By: #### 2 266829, 4275172, 32016067, 8626939, 2761671, 29291682, 8957279, 5190122 ####[facility] [address] [place] [address] WBC corrected for nucl RBC Auto (Bld) [#/Vol] 8.5 E9/L Normal 4.0-11.0 [facility] Comment on above: Result Comment: Slid e reviewed by MA. Performed By: #### 2 698747, 8399181, 01302087, 1012208, 8862795, 53892401, 1282283, 6885334 ####[facility] [address] [place] [address] CHEMISTRYOrdered By: SYSTEM SYSTEM on 11-10-2022 Albumin [...] 0.8 mg/dL Normal 0.5 - 1.3 mg/dL [facility] GFR/1.73 sq M.predicted among non-blacks MDRD (S/P/Bld) [Vol rate/Area] 105 mL/min/1.73 m2 Normal >=59mL/min/1 .73 m2 [facility] Chem S Globulin (S) [Mass/Vol] 3.1 g/dL Normal 1.4 - 4.0 gm/dL [facility] Glucose [Mass/Vol] 96 mg/dL Normal 55 - 199 mg/dL [facility] Lipase [Catalytic activity/Vol] 28 U/L Normal 13 - 58 unit/L [facility] Potassium [Moles/Vol] 3.8 mmol/L Normal 3.5 - 5.3 mmol/L [facility] Protein [Mass/Vol] 7.7 g/dL Normal 6.0 - 7.8 gm/dL [facility] Remisol Sodium [Moles/Vol] 138 mmol/L Normal 135 - 145 mmol/L [facility] Remisol Troponin I.cardiac [Mass/Vol] pg/mL Low 10.10 - 27.10 pg/mL [facility] Urea nitrogen [Mass/Vol] 13 mg/dL Normal 5 - 21 mg/dL [facility] Urea nitrogen/Creatinine [Mass ratio] 16 mg/mg Normal 10 - 20 [facility] COAGULATIONOrdered By: Aaron Wren on 11-10-2022 Fibrin D-dimer FEU (PPP) [Mass/Vol] ng/mL FEU Low 215 - 500 ng/mL FEU [facility] Auto Coag Consent for Treatmenton Consent for Treatment [id number]#1 .00CD:127 Normal [facility] D-Dimeron 11-10-2022 Fibrin D-dimer FEU (PPP) [Mass/Vol] <215 Low 215-500 [facility] Comment on above: Result Comment: This assay [...] infections Liver cirrhosis Performed By: #### 2 734327, 5576399, 53553118, 4010244, 7247825, 31384643, 1514347, 2816490 ####[facility] [address] [place] [address] Discharge Instructionson Discharge Instructions [id number]# 1.00CD:127 Normal [facility] ED Clinical Summaryon 2022 ED Clinical Summary [address] [address] ED Clinical Summary Person Information Name: MAURY COLLAZO Lisa/[facility] Age: 22 Years : 2000 Sex: Female Language: Lebanese PCP: Bella Camara MD Marital Status: Single [...] 19:05:26 11/10/2022 19:05:26 ADDRESS: [id number] [facility] [address] [id number] [facility] NOTES: MEDICAL INFORMATION: Prescriptions Given: New Medications [...] Follow up: With: Address: When: [place] [address] [place] [address] Business (1) In 3 days 11/13/2022 Comments: Retrurn to the emergency room if your shortness of breath recurs, abdominal pain recurs or any new symptoms. DIAGNOSIS: 1:Abdominal pain; 2:Shortness of breath Normal [facility] ED Note-Physicianon 11-11-19 ED Note-Physician Basic Information [...] and Complexity of Problems Differential Diagnosis: [] [facility] Data External documents reviewed: [] My [...] Contact I (more content not included)... Normal [facility] Comment on above: Result Comment: Elec tronically Signed By: Michael Hannah M.D.\.aldo\Date and Time Signed: 11/10/22 18:57 EDT ED [...] these instructions at home: Medicines ? Take mqui-ptq-lpljngy and prescription medicines only as told by [...] your condition for any changes. ? Take uswy-rgv-colbulq and prescription medicines only as told by [...] provider. Document Revised: 05/17/2020 Document Reviewed: 08/07/2019 [employer] Patient Education ? 2022 [employer]. Pulmonary Medicine Shortness of Breath, Adult Shortness [...] any changes in your symptoms. ? Take ybjg-ymo-cemodtj and prescription medicines only as told by [...] ? D (more content not included)... Normal [facility] ED Patient Summaryon 023 ED Patient Summary [address] [address] Patient Discharge Instructions Person Information Name: MAURY COLLAZO Age: 22 Years Arrival Date: 11/10/2022 15:56:06 Discharge Diagnosis: 1:Abdominal pain; 2:Shortness of breath Primary Care Physician: Bella Camara MD Provider Information Primary Provider: Michael Hannah M.D. Advanced Fingernail Former:None The exam and treatment you received in the Emergency Department were for an urgent problem and are not intended as complete care. It is important that you follow up with a doctor, nurse practitioner, or physician?s billing and accounting staff assistant for ongoing care. If your symptoms [...] Instructions: With: Address: When: Bella Camara [address] [facility] [place] [address] Business (1) In 3 days 11/13/2022 Comments: Retrurn [...] opioids can be used to help relieve zyvbbwrv-ry-nhwqwb pain and are often prescribed following a [...] struggling wi (more content not included)... Normal [facility] HEMATOLOGYOrdered By: SYSTEM SYSTEM on 11-10-2022 Basophils/100 [...] above: Result Comment: Slid e reviewed by [facility] Panelon 11-10-2022 Bilirubin.indirect [Mass or moles/Vol] UTC Abnormal 0.1-0.9 [facility] Comment on above: Result Comment: Resu lt verified by Discern Rule. Performed result UTC (Unable to Calculate) was sent as an Alpha code due the inability to calculate a valid numeric value. Performed By: #### 2 215948, 1783019, 32926464, 8670004, 8611705, 00581134, 5998516, 9856457 ####[facility] [address] [place] [address] Albumin [Mass/Vol] 4.6 g/dL Normal 3.3-5.0 [facility] Comment on above: Performed By: #### 2 884066, 2561809, 13270793, 9872090, 2717413, 51421306, 4848792, 4257911 ####[facility] [address] [place] [address] Albumin/Globulin (S) [Mass conc ratio] 1.5 Normal 1.1-2.2 [facility] Comment on above: Performed By: #### 2 324085, 3334613, 15698023, 9014765, 8339625, 32019958, 9613332, 1234579 ####[facility] [address] [place] [address] ALP [Catalytic activity/Vol] 41 Int._Unit/L Normal 21-98 [facility] Comment on above: Performed By: #### 2 957158, 6401267, 50778135, 8326055, 8200222, 66903538, 2413425, 1114432 ####[facility] [address] [place] [address] ALT No additional P-5'-P [Catalytic activity/Vol] 17 Int._Unit/L Normal 6-46 [facility] Comment on above: Performed By: #### 2 [id number], 4130630, 94920988, 3477844, 5686794, 61752174, 0170496, 0407781 ####[address] [place] [address] AST [Catalytic activity/Vol] 17 Int._Unit/L Normal 5-43 [facility] Comment on above: Performed By: #### 2 905872, 0249204, 05919084, 5723707, 2940244, 27609620, 7816319, 3864818 ####[address] [place] [address] Bilirubin [Mass/Vol] 0.5 mg/dL Normal 0.0-1.1 [facility] Comment on above: Performed By: #### 2 944655, 5003398, 71199971, 2133505, 7489713, 64883427, 6514946, 2272958 ####[address] [place] [address] Globulin (S) [Mass/Vol] 3.1 g/dL Normal 1.4-4.0 [facility] Comment on above: Performed By: #### 2 254078, 7541205, 21043348, 0972742, 4705936, 44569210, 1380512, 5892095 ####[facility] [address] [place] [address] Protein [Mass/Vol] 7.7 g/dL Normal 6.0-7.8 [facility] Comment on above: Performed By: #### 2 041907, 1387909, 62260112, 0340958, 7671177, 88249017, 0750953, 1719039 ####[facility] [address] [place] [address] Bilirubin.direct [Mass/Vol] mg/dL Normal 0.1-0.4 [facility] Comment on above: Performed By: #### 2 796082, 5247541, 69632748, 5649333, 1215794, 70595691, 9465773, 6346251 ####[facility] [address] [place] [address] Lipase Levelon 11-10-2022 Lipase [Catalytic activity/Vol] 28 U/L Normal 13-58 [facility] Comment on above: Performed By: #### 2 284689, 5173144, 88471166, 9691941, 7285609, 06212400, 0332733, 1013317 ####[facility] [address] [place] [address] Progress Note-Nurseon 2022 Progress Note-Nurse Patient brought back to ED 11 at this time from the waiting room Normal [facility] SEROLOGYOrdered By: Brittni choudhury on 11-10-2022 HCG.beta subunit (U) [Moles/Vol] Negative Normal [facility] Man Sero Troponin 0 Hr.on 11-10-2022 Troponin I.cardiac [Mass/Vol] ng/mL Low 10.10-27.10 [facility] Comment on above: Result Comment: The 95% CI (Confidence Interval) PPV (Positive Predictive Value) for myocardial infarction in females is 38 pg/mL, in males 51 pg/mL. The results should be used in conjunction with clinical conditions of myocardial infarction. (Access High Sensitivity Troponin I Instructions For Use, Richelle [place], November 2017) Performed By: #### 2 770381, 8332076, 10784578, 8460812, 1997311, 22782282, 0351051, 7124183 ####[facility] [address] [place] [address] U BetaHcg Qualon 11-10-2022 HCG.beta subunit (U) [Moles/Vol] Negative Normal [facility] Comment on above: Performed By: #### 2 8832850 ####[address] [address] UA With Cult Reflexon 2022 Bilirubin Ql (U) Negative Normal Negative [facility] Comment on above: Performed By: #### 1 9822588 ####[address] [address] Clarity (U) CLEAR Normal Clear [facility] Comment on above: Performed By: #### 1 4095317 ####[address] [address] Color (U) YELLOW Normal Yellow [facility] Comment on above: Performed By: #### 1 [id number] ####[address] [address] Epithelial cells.squamous LM.HPF (Urine sed) [#/Area] 0-2 Normal 0-2 [facility] Comment on above: Performed By: #### 1 5046499 ####[address] [address] Glucose Test strip (U) [Mass/Vol] Negative Normal Negative [facility] Comment on above: Performed By: #### 1 [id number] ####[address] [address] Hemoglobin Ql (U) Negative Normal Negative [facility] Comment on above: Performed By: #### 1 0442534 ####[address] [address] Ketones (U) [Mass/Vol] Negative Normal Negative [facility] Comment on above: Performed By: #### 1 0702480 ####[address] [place] [address] Lorton.plasma/Lorton. RBC (Bld) [Mass ratio] 0-3 Normal 0-3 [facility] Comment on above: Performed By: #### 1 1819166 ####[address] [address] Nitrite Ql (U) Negative Normal Negative [facility] Comment on above: Performed By: #### 1 6507040 ####[address] [address] pH (U) 6.0 [pH] Invalid Interpretation Code 5.0-9.0 [facility] Comment on above: Performed By: #### 1 4205317 ####[address] [address] Protein (U) [Mass/Vol] Negative Normal Negative [facility] Comment on above: Performed By: #### 1 8399976 ####[address] [address] Specific gravity (U) [Rel density] 1.010 Invalid Interpretation Code 1.005-1.030 [facility] Comment on above: Performed By: #### 1 0042348 ####[address] [address] Type of Urine collection method Clean Catch Normal [facility] Comment on above: Performed By: #### 1 5516672 ####[address] [address] Urobilinogen Qn (U) 0.2 {Elizabeth'U}/dL Normal 0.0-1.0 [facility] Comment on above: Performed By: #### 1 6210412 ####[address] [address] WBC Auto Ql (U) Negative Normal Negative [facility] Comment on above: Performed By: #### 1 4678075 ####[address] [place] [address] WBC LM.HPF (Urine sed) [#/Area] 0-5 Normal 0-5 [facility] Comment on above: Performed By: #### 1 8692871 ####[facility] [address] [place] [address] URINALYSISOrdered By: Brittni Wren on 11-10-2022 Bilirubin [...] PM) Normal Negative [facility] UA Auto SS Lorton.plasma/Lorton. RBC (Bld) [Mass ratio] 0-3 /HPF Normal [...] [facility] UA Auto SS Urobilinogen Qn (U) 0.1857660 {Elizabeth'U}/dL Normal 0.0 - 1.0 EU/dL [facility] UA Auto SS WBC Auto Ql (U) Negative (11/10/22 5:44 PM) Normal Negative [facility] UA Auto SS WBC LM.HPF (Urine sed) [#/Area] 0-5 /HPF Normal 0-5/HPF [facility] UA Auto SS eGFRon 11-10-2022 GFR/1.73 sq M.predicted among non-blacks MDRD (S/P/Bld) [Vol rate/Area] 105 mL/min/1.73 m2 Normal >=59 [facility] Comment on above: Order Comment: Order added by Discern Expert. Result Comment: Family Service Counselor crystal kidney disease could be indicated at eGFR's of less than 60 mL/min/1.73m2. Kidney failure is indicated at less than 15 mL/min/1.73m2. Performed By: #### 2 797545, 0158505, 17846324, 2769466, 9631645, 91032677, 0201839, 6719108 ####[facility] [address] [place] [address] Basophils Auto (Bld) [#/Vol] Ordered By: Phillip Shaw on 04-12-2022 Basophils (Bld) [#/Vol] 0.0 10*3/uL 0.0-0.2 [facility] Basophils/100 WBC Auto (Bld) Ordered By: Phillip Shaw on 04-12-2022 Basophils/100 WBC (Bld) 0.4 % . [facility] Creatinine and Glomerular fi ltration rate.predicted panel (S/P/Bld)Ordered By: Phillip Shaw on 04-12-2022 Creatinine [Mass/Vol] 0.72 mg/dL 0.44-1.03 [facility] Eosinophils Auto (Bld) [#/Vo l]Ordered By: Phillip Shaw on 04-12-2022 Eosinophils (Bld) [#/Vol] 0.0 10*3/uL 0.0-0.45 [facility] Eosinophils/100 WBC Auto (Bl d)Ordered By: Phillip Shaw on 04-12-2022 Eosinophils/100 WBC (Bld) 0.1 % . [facility] Erythrocyte distribution wid th Auto (RBC) [Ratio]Ordered By: Phillip Shaw on 04-12-2022 Erythrocyte distribution width (RBC) [Ratio] 15.1 % 11.9-15.3 [facility] Estimated glomerular filtrat ion rate (GFR) non- AmericanOrdered By: Phillip Shaw on 04-12-2022 GFR/1.73 sq M.predicted among non-blacks MDRD (S/P/Bld) [Vol rate/Area] > 60 mL/Min [facility] Hematocrit Auto (Bld) [Volum e fraction]Ordered By: Phillip Shaw on 04-12-2022 Hematocrit (Bld) [Volume fraction] 37.6 % 34.0-46.4 [facility] Hemoglobin [Mass/volume] in BloodOrdered By: Phillip Shaw on 04-12-2022 Hemoglobin (Bld) [Mass/Vol] 12.4 g/dL 11.8-15.4 [facility] Laboratory - Chemistry and C hemistry - challengeOrdered By: Phillip Shaw on 04-12-2022 Natriuretic peptide B (Bld) [Mass/Vol] 34.0 pg/mL 5-100 [facility] Leukocytes [#/volume] correc charli for nucleated erythrocytes in Blood by Automated counOrdered By: Phillip Shaw on 04-12-2022 WBC corrected for nucl RBC Auto (Bld) [#/Vol] 11.1 10*3/uL 3.8-11.6 [facility] Lymphocytes Auto (Bld) [#/Vo l]Ordered By: Phillip Shaw on 04-12-2022 Lymphocytes (Bld) [#/Vol] 1.0 10*3/uL 1.00-4.8 [facility] Lymphocytes/100 WBC Auto (Bl d)Ordered By: Phillip Shaw on 04-12-2022 Lymphocytes/100 WBC (Bld) 9.1 % . [facility] MCH Auto (RBC) [Entitic mass ]Ordered By: Phillip Shaw on 04-12-2022 MCH (RBC) [Entitic mass] 28.8 pg 24.7-34.3 [facility] MCHC Auto (RBC) [Mass/Vol]Or dered By: Phillip Shaw on 04-12-2022 MCHC (RBC) [Mass/Vol] 32.9 g/dL 32.0-35.0 [facility] MCV Auto (RBC) [Entitic vol] Ordered By: Phillip Shaw on 04-12-2022 MCV (RBC) [Entitic vol] 87.5 fL 80-100 [facility] Monocyte distribution width [Entitic volume] in Blood by AutomatedOrdered By: Phillip Shaw on 04-12-2022 Monocyte distribution width Auto (Bld) [Entitic vol] 22.31 % 0.00-20.00 [facility] Comment on above: For adults in ED, MD W > 20.0 may be associated with a higher risk of sepsis during the first 12 hrs of hospital admission Monocytes Auto (Bld) [#/Vol] Ordered By: Phillip Shaw on 04-12-2022 Monocytes (Bld) [#/Vol] 1.1 10*3/uL 0.0-0.8 [facility] Monocytes/100 WBC Auto (Bld) Ordered By: Phillip Shaw on 04-12-2022 Monocytes/100 WBC (Bld) 10.3 % . [facility] Neutrophils Auto (Bld) [#/Vo l]Ordered By: Phillip Shaw on 04-12-2022 Neutrophils (Bld) [#/Vol] 8.9 10*3/uL 1.8-7.7 [facility] Neutrophils/100 WBC Auto (Bl d)Ordered By: Phillip Shaw on 04-12-2022 Neutrophils/100 WBC (Bld) 80.1 % . [facility] No Panel InformationOrdered By: Phillip Shaw on 04-12-2022 D-Dimer Quantitative (PE/DVT) < 200 ng/mL 0-243 [facility] Comment on above: The reference range for [...] conditions. Estimated GFR () > 60 mL/Min [facility] Comment on above: GFR estimated refere nce range: According to KDOQI guidelines, <60 ml/min/1.73m2 is sufficient to diagnose a patient with chronic kidney disease. Pharmacy Creatinine Clearance (Chem 117.02 [facility] Nucleated erythrocytes [Pres ence] in Blood by Automated countOrdered By: Phillip Shaw on 04-12-2022 Nucleated RBC Auto Ql (Bld) 0.1 /100{WBC} 0-0.5 [facility] Platelet mean volume Auto (B ld) [Entitic vol]Ordered By: Phillip Shaw on 04-12-2022 Platelet mean volume (Bld) [Entitic vol] 11.4 fL 6.3-10.7 [facility] Platelets Auto (Bld) [#/Vol] Ordered By: Phillip Shaw on 04-12-2022 Platelets (Bld) [#/Vol] 181 10*3/uL 150-450 [facility] RBC Auto (Bld) [#/Vol]Ordere d By: Phillip Shaw on 04-12-2022 RBC (Bld) [#/Vol] 4.30 10*6/uL 3.60-5.00 [facility] Serum or plasma anion gap de terminationOrdered By: Phillip Shaw on 04-12-2022 Anion gap [Moles/Vol] 13.1 mmol/L 6.0-15.0 [facility] Serum or plasma calcium oliver urement (mass/volume)Ordered By: Phillip Shaw on 04-12-2022 Calcium [Mass/Vol] 8.9 mg/dL 8.2-10.2 [facility] Serum or plasma chloride jeanne surement (moles/volume)Ordered By: Phillip Shaw on 04-12-2022 Chloride [Moles/Vol] 101 mmol/L 95-114 [facility] Serum or plasma glucose oliver urement (mass/volume)Ordered By: Phillip Shaw on 04-12-2022 Glucose [Mass/Vol] 108 mg/dL 70-100 [facility] Comment on above: ADA recommended refe rence rangeRandom Glucose Reference Range is dependent on time and content of last meal. Glucose of more than 200 mg/dL in a nonstressed, ambulatory subject supports the diagnosis of Diabetes Mellitus. Serum or plasma potassium me asurement (moles/volume)Ordered By: Phillip Shaw on 04-12-2022 Potassium [Moles/Vol] 3.8 mmol/L 3.5-5.1 [facility] Serum or plasma sodium measu rement (moles/volume)Ordered By: Phillip Shaw on 04-12-2022 Sodium [Moles/Vol] 133 mmol/L 136-146 [facility] Serum or plasma total carbon dioxide measurement (moles/volume)Ordered By: Phillip Shaw on 04-12-2022 CO2 [Moles/Vol] 22.7 mmol/L 22.0-30.0 [facility] Serum or plasma urea nitroge n measurement (mass/volume)Ordered By: Phillip Shaw on 04-12-2022 Urea nitrogen [Mass/Vol] 7 mg/dL 9-23 [facility] Troponin I.cardiac [Mass/vol ume] in Serum or Plasma by High sensitivity methodOrdered By: Phillip Shaw on 04-12-2022 Troponin I.cardiac High sensitivity method [Mass/Vol] 5 pg/mL 0-15 [facility] WBC Auto (Bld) [#/Vol]Ordere d By: Phillip Shaw on 04-12-2022 WBC (Bld) [#/Vol] 11.1 10*3/uL 3.8-11.6 [facility] COVID CepheidOrdered By: Twyla Rea on 04-07-2022 SARS-CoV-2 (COVID-19) Ab IA Ql Negative Negative [facility] Comment on above: This is a duplicate Cepheid Xpert Xpress CoV-2/Flu/RSV Plus RNA by RT-PCR result to be used for statistical tracking purpose only. SARS-CoV-2 (COVID-19) RNA BARBI+probe Ql (Unsp spec) [facility] XR Spine Lumbar 4+ Views*on 08-21-2021 XR [...] signed by JOVITA MA on 08/21/2021 1223 [facility] HNO ID: [id number] Author: RT Kristin(R) Service: Radiology Author Type: Sheet Metal Mechanic Type: Allied Health Filed: 10/04/2020 10:48 AM [...] RT Kristin(R) October 04, 2020 10:26 AM [facility] HNO ID: [id number] Author: RT Kristin(R) Service: Radiology Author Type: Sheet Metal Mechanic Type: Allied Health Filed: 10/04/2020 9:27 AM Note Text: Waiting for HCG results to come back before performing exam Bing Killian(R) [facility] ED NOTEon 10-04-2020 ED NOTE HNO ID: [id number] Author: Samara Orozco RN Service: ? Author [...] ambulated with steady gait out of ED. [facility] ED NOTE HNO ID: [id number] Author: Samara Orozco RN Service: ? Author Type: Registered Nurse Type: ED Notes Filed: 10/04/2020 11:38 AM Note Text: Pt resting comfortably in bed. Comfort measures offered. Call light within reach. No distress noted at this time. Safety maintained and will continue to monitor patient. [facility] ED NOTE HNO ID: [id number] Author: Samara Orozco RN Service: ? Author Type: Registered Nurse Type: ED Notes Filed: 10/04/2020 11:38 AM Note Text: Pt resting comfortably in bed. Comfort measures offered. Call light within reach. No distress noted at this time. Safety maintained and will continue to monitor patient. [facility] ED NOTE HNO ID: [id number] Author: Akin Mcclain RN Service: ? Author Type: Registered Nurse Type: ED Notes Filed: 10/04/2020 9:21 AM Note Text: PO fluids provided [facility] ED NOTE HNO ID: [id number] Author: Akin Mcclain RN Service: ? Author [...] head or LOC. +MSP; gate is steady. [facility] ED PROV NOTEon 10-04-2020 ED PROV NOTE HNO ID: [id number] Author: Al Castellanos MD Service: Emergency Medicine [...] IV drug use. 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 No pertinent past [...] 8:41 AM) Phase: Chronic (> 12 Weeks) (LA CASTELLANOS at 10/04/2020 8:41 AM) History of Malignancy: No (AL CASTELLANOS at 10/04/2020 8:41 AM) Prolonged Steroid Use: No (AL CASTELLANOS at 10/04/2020 8:41 AM) Recent Use of IV Drugs: No (AL CASTELLANOS at 10/04/2020 8:41 AM) Unexplained Fever: No (AL CASTELLANOS at 10/04/2020 8:41 AM) Significant Injury to Spine: No (CRESCENCIOAL HICKS at 10/04/2020 8:41 AM) Recent Urinary Retention; [...] at 10/05/19 (more content not included)... Normal [facility] HCG Qual, Urineon 10-04-2020 Beta HCG ( test) Ql (U) Negative Normal Negative [facility] Comment on above: Performed By: #### U HCG #### [facility] [address] [place] [address] XR FEMUR 2V AP/LAT RTon 09-11 XR [...] No acute bone or joint space abnormality. Manager Trade: PSCB Transcribe Date/Time: Oct 04 2020 10:50A Dictated by : Anca MACKENZIE MD This examination was interpreted and the report reviewed and electronically signed by: Anca MACKENZIE MD on Oct 04 2020 10:55AM EST [id number] N [facility] XR LUMBAR 3V AP/LAT/L5-S1on 10-04-2020 XR [...] vertebrae. Anatomic Variant: Transitional L5 vertebral body. Manager Trade: PSCB Transcribe Date/Time: Oct 04 2020 10:56A Dictated by : Anca MACKENZIE MD This examination was interpreted and the report reviewed and electronically signed by: Anca MACKENZIE MD on Oct 04 2020 10:58AM EST [id number] [facility] XR PELVIS 1V APon 10-04-2020 XR [...] No acute bone or joint space abnormality. Manager Trade: ROSA Transcribe Date/Time: Oct 04 2020 10:50A Dictated by : Anca MACKENZIE MD This examination was interpreted and the report reviewed and electronically signed by: Anca MACKENZIE MD on Oct 04 2020 10:55AM EST [id number] Normal [facility] CHEST 1 VIEWon 10-01-2020 CHEST 1 VIEW Patient Name: MAURY COLLAZO STUDY: CHEST 1 VIEW; 10/01/2020 7:54 am INDICATION: cough. COMPARISON: None. ACCESSION NUMBER(S): [id number] ORDERING CLINICIAN: ERON JONES TECHNIQUE: A portable [...] Electronically signed by: LARS DAMICO MD Normal [facility] CORONAVIRUS 2019 BY PCRon SARS-CoV-2 (COVID-19) RNA BARBI+probe Ql (Unsp spec) Not detected Normal Not Detected [facility] Comment on above: Result Comment: . This assay is designed to detect the RdRp gene of SARS-CoV-2 via nucleic acid amplification. A Not Detected result does not preclude COVID-19 infection since the adequacy of sample collection and/or low viral burden may result in presence of viral nucleic acids below the clinical sensitivity of this test method. Fact sheet for providers: www.fda.gov/media/224226/download Fact sheet for patients: www.fda.gov/media/269847/download This test has received FDA Emergency Use Authorization (EUA) and has been verified by [facility] ([facility]). This test is only authorized for the duration of time that circumstances exist to justify the authorization of the emergency use of in vitro diagnostic tests for the detection of SARS-CoV-2 virus and/or diagnosis of COVID-19 infection under section 564(b)(1) of the Act, 21 U.S.C. 360bbb-3(b)(1), unless the authorization is terminated or revoked sooner. [facility] is certified under CLIA-88 as qualified to perform high complexity testing. Testing is performed in the [facility] laboratory located at [address] [place] [id number]. Performed By: #### C OV19 #### [address] [id number] DATE OF SYMPTOM ONSET [YYYYMMDD]? [id number] Normal [facility] Comment on above: Performed By: #### C OV19 #### [address] [id number] Lab Specimen Source Nasal, Nasopharyngeal Normal [facility] Comment on above: Performed By: #### C OV19 #### [address] [id number] Covid 19 Resultson 1 SARS-CoV-2 (COVID-19) RNA [...] You may also be contacted by the [facility] to see if any of [...] or Naproxen (Aleve) can also be used. Pomw-sss-kgwxekr cough and cold medicines can be used according to the instructions on the package. Some pcne-aef-lxxyfwa medicines also contain acetaminophen. Make sure you [...] water are not available, use alcohol-based hand special projects manager. Avoid touching your eyes, nose, and mouth [...] 24 reginald (more content not included)... Normal [facility] Provider Note - ED v2on 09-11 Provider [...] Status: Patient Currently Takes Medications Drug Name: Carolyn Instructions: null Drug Name: benzonatate 100 mg oral capsule Instructions: 1 cap(s) orally every 8 hours, As Needed SIGNIFICANT EVENTS: No documented data. STATOR CONNECTOR: Is : no(1) Is : no(1) REVIEW [...] SIGNS: T PRBP SpO2O2(LPM) %FiO2 Method 01-Oct-2020 07:27:[id number] 98 room air, no respiratory support PHYSICAL [...] not at (more content not included)... Normal [facility] Risk Screen - Adult Emergenc yon 10-01-2020 [...] demonstration; verbal instruction Cultural Considerationsnone Developmental Considerationsnone Oriental Orthodox Considerationsnone Learning Assessment (Other Learner): Learning Assessment [...] an injured patient at a Trauma Center ([facility]/[place]/[facility]/[place]/[facility]): no Electronic Signatures: Hailey Shepard (STAFF N) (Signed 01-Oct-2020 07:27) Authored: Preferred Language, Advanced Directives, Family Violence Adult, Learning Assessment (Patient), Learning Assessment (Other Learner), Pressure Injury/TB/Substance, Pressure Injury, CAGE Last Updated: 01-Oct-2020 07:27 by Hailey Shepard (STAFF N) Normal [facility] Triage - EDon 10-01-2020 Triage - ED [...] Accompanied By: self Language: Spoken Language Preferred: Lebanese Reading Language Preferred: Lebanese Clinical Resource Director Requested: no drop forger helper was requested MDRO: History of MDRO: no [...] 07:32 by Hailey Shepard (STAFF N) Normal [facility] CBC AUTO DIFFon 09-10-2018 Basophils #/vol (Bld) 0.0 103/ul Normal 0.0-0.1 [facility] Comment on above: Performed By: #### C BC #### [facility] [address] [address] Dianne Mame Basophils/100 WBC (Bld) 0.4 % Normal 0.2-2.0 [facility] Comment on above: Performed By: #### C BC #### [facility] [address] [place] [address] Dianne Mame Eosinophils #/vol (Bld) 0.0 103/ul Normal 0.0-0.7 [facility] Comment on above: Performed By: #### C BC #### [facility] [address] [place] [address] Dianne Timmonsen Eosinophils/100 WBC (Bld) 0.4 % Critically low 0.9-7.0 [facility] Comment on above: Performed By: #### C BC #### [facility] [address] [place] [address] Dianne Vilchis Erythrocyte distribution width Ratio (RBC) 12.9 % Normal 11.0-15.0 [facility] Comment on above: Performed By: #### C BC #### [facility] [address] [place] [address] Dianne Vilchis Hematocrit Volume Fraction (Bld) 38.9 % Normal 36.0-48.0 [facility] Comment on above: Performed By: #### C BC #### [facility] [address] [place] [address] Dianne Vilchis Hemoglobin mass conc (Bld) 13.4 g/dL Normal 12.0-16.0 [facility] Comment on above: Performed By: #### C BC #### [facility] [address] [place] [address] Dianne Vilchis IG # 0.03 10e3/ul Normal 0.00-0.03 [facility] Comment on above: Performed By: #### C BC #### [facility] [address] [id number] Dianne Mame IG % 0.3 % Normal 0.0-0.5 [facility] Comment on above: Performed By: #### C BC #### [facility] [address] [place] [address] Dianne Mame Lymphocytes #/vol (Bld) 2.1 103/ul Normal 1.2-3.8 [facility] Comment on above: Performed By: #### C BC #### [facility] [address] [place] [address] Dianne Mame Lymphocytes/100 WBC (Bld) 20.3 % Critically low 20.5-60.0 [facility] Comment on above: Performed By: #### C BC #### [facility] [facility] [address] [place] [address] Dianne Vilchis MANUAL DIFF REQ NO Normal [facility] Comment on above: Performed By: #### C BC #### [facility] [address] [place], [place] [id number] Dianneisidro Vilchis MCH Entitic mass (RBC) 30.4 pg Normal 26.7-34.0 [facility] Comment on above: Performed By: #### C BC #### [facility] [address] [place] [address] Dianne Vilchis MCHC mass conc (RBC) 34.4 g/dL Normal 29.9-35.2 [facility] Comment on above: Performed By: #### C BC #### [facility] [address] [place], [place] [id number] Dianneisidro Vilchis MCV Entitic volume (RBC) 88.2 fL Normal 81.0-99.0 [facility] Comment on above: Performed By: #### C BC #### [facility] [address] [place] [address] Dianne Mame Monocytes #/vol (Bld) 0.6 103/ul Normal 0.3-0.8 [facility] Comment on above: Performed By: #### C BC #### [facility] [address] [place], [place] [address] Dianne Mame Monocytes/100 WBC (Bld) 5.7 % Normal 1.7-12.0 [facility] Comment on above: Performed By: #### C BC #### [facility] [address] [place], [place] [address] Dianne Mame Neutrophils #/vol (Bld) 7.4 103/ul Critically high 1.4-6.5 [facility] Comment on above: Performed By: #### C BC #### [facility] [address] [place], [place] [address] Dianne Mame Neutrophils/100 WBC (Bld) 72.9 % Normal 43.0-75.0 [facility] Comment on above: Performed By: #### C BC #### [facility] [address] [place], [place] [address] Dianne Mame Platelet mean volume Entitic volume (Bld) 12.5 fL Normal 9.5-13.5 [facility] Comment on above: Performed By: #### C BC #### [facility] [address] [place], [place] [address] Dianne Mame Platelets #/vol (Bld) 192 103/ul Normal 150-450 [facility] Comment on above: Performed By: #### C BC #### [facility] [address] [place], [place] [address] Dianne Mame RBC #/vol (Bld) 4.41 106/ul Normal 4.20-5.40 [facility] Comment on above: Performed By: #### C BC #### [facility] [address] [place], [place] [address] Dianne Mame WBC #/vol (Bld) 10.1 103/ul Normal 4.0-11.0 [facility] Comment on above: Performed By: #### C BC #### [facility] [address] [place], [place] [address] Dianne Mame ER URINE PROFILEon 9 Bilirubin mass conc SMALL Normal NEGATIVE [facility] Comment on above: Performed By: #### E RUR #### [facility] [address] [place] [address] Dianne Mame BLOOD Negative Normal NEGATIVE [facility] Comment on above: Performed By: #### E RUR #### [facility] [address] [place], [place] [id number] Dianneisidro Vilchis Clarity Nom (U) CLEAR Normal The [facility] Comment on above: Performed By: #### E RUR #### [facility] [address] [place] [address] Dianne Mame Color Nom (U) YELLOW Normal YELLOW The [facility] Comment on above: Performed By: #### E RUR #### [facility] [address] [place], [place] [id number] Dianneisidro Vilchis ERUAHD A micrscopic examination will be performed if indicated. Normal The [facility] Comment on above: Performed By: #### E RUR #### [facility] [address] [place] [address] Dianne Mame Glucose mass conc Negative Normal NEGATIVE [facility] Comment on above: Performed By: #### E RUR #### [facility] [address] [place] [address] Dianne Mame Ketones Ql (U) >=80 Normal NEGATIVE [facility] Comment on above: Performed By: #### E RUR #### [facility] [address] [place] [address] Dianne Mmae Nitrite Ql (U) Negative Normal NEGATIVE [facility] Comment on above: Performed By: #### E RUR #### [facility] [address] [place] [address] Dianne Mame pH (Bld) 6.0 Normal 5-9 [facility] Comment on above: Performed By: #### E RUR #### [facility] [address] [place] [address] Dianne Mame Protein mass conc (U) TRACE Normal [facility] Comment on above: Performed By: #### E RUR #### [facility] [address] [place] [address] Dianne Mame SPEC GRAVITY 1.025 Normal 1.005-<=1.02 5 [facility] Comment on above: Performed By: #### E RUR #### [facility] [address] [place], [place] [id number] Dianne Vilchis UR MICRO IND NOT INDICATED Normal [facility] Comment on above: Performed By: #### E RUR #### [facility] [address] [place], [place] [phone] Dianne Vilchis Urobilinogen Qn (U) 0.2 EU/dl Normal [facility] Comment on above: Performed By: #### E RUR #### [facility] [address] [place] [address] Dianne Vilchis WBC #/vol (Bld) Negative Normal NEGATIVE [facility] Comment on above: Performed By: #### E RUR #### [facility] [address] [place] [address] iDanne Vilchis PROF 14(COMP METB)on 019 Albumin mass conc 3.8 g/dL Normal 3.5-5.0 [facility] Comment on above: Performed By: #### C MP #### [facility] [address] [place], [place] [id number] Dianne Vilchis Albumin/Globulin mass ratio 1.0 {ratio} Normal [facility] Comment on above: Performed By: #### C MP #### [facility] [address] [place] [address] Dianneisidro Vilchis ALP enzyme act/vol 53 U/L Normal 38-126 [facility] Comment on above: Performed By: #### C MP #### [facility] [address] [place], [place] [id number] Dianne Vilchis ALT enzyme act/vol 25 U/L Normal 9-52 [facility] Comment on above: Performed By: #### C MP #### [facility] [address] [place] [address] Dianne Vilchis Anion gap molar conc 13.4 mmol/L Normal [facility] Comment on above: Performed By: #### C MP #### [facility] [address] [place], [place] [phone] Dianne Vilchis AST enzyme act/vol 17 U/L Normal 14-36 [facility] Comment on above: Performed By: #### C MP #### [facility] [address] [place] [address] Dianne Vilchis Bilirubin Ql (U) 0.5 mg/dL Normal 0.2-1.3 [facility] Comment on above: Performed By: #### C MP #### [facility] [address] [place] [address] Dianne Mame Calcium mass conc 9.6 mg/dL Normal 8.4-10.2 [facility] Comment on above: Performed By: #### C MP #### [facility] [address] [place] [address] Dianne Timmonsen Chloride molar conc 101 mmol/L Normal 98-107 [facility] Comment on above: Performed By: #### C MP #### [facility] [address] [place] [address] Dianneisidro Vilchis CO2 molar conc 24.1 mmol/L Normal 22.0-30.0 [facility] Comment on above: Performed By: #### C MP #### [facility] [address] [place] [address] Dianne Mame Creatinine mass conc 0.64 mg/dL Normal 0.52-1.04 [facility] Comment on above: Performed By: #### C MP #### [facility] [address] [place] [address] Dianne Mame EGFR-AF KAZAKH >60 Normal >=60 [facility] Comment on above: Performed By: #### C MP #### [facility] [address] [place] [address] Dianne Mame EGFR-NON AF KAZAKH >60 Normal >=60 [facility] Comment on above: Performed By: #### C MP #### [facility] [address] [place] [address] Dianne Mame Globulin mass conc (S) 3.9 g/dL Normal [facility] Comment on above: Performed By: #### C MP #### [facility] [address] [place], [place] [address] Dianne Timmonsen Glucose mass conc 76 mg/dL Normal 74-106 [facility] Comment on above: Performed By: #### C MP #### [facility] [address] [place], [place] [address] Dianne Vilchis Potassium molar conc 3.5 mmol/L Normal 3.4-5.0 [facility] Comment on above: Performed By: #### C MP #### [facility] [address] [place] [id number] Dianne Mame Protein mass conc 7.7 g/dL Normal 6.1-8.2 [facility] Comment on above: Performed By: #### C MP #### [facility] [address] [place] [id number] Dianne Timmonsen Sodium molar conc 135 mmol/L Critically low 137-145 [facility] Comment on above: Performed By: #### C MP #### [facility] [address] [id number] Dianneisidro Timmonsen Urea nitrogen mass conc 9.0 mg/dL Normal 6.4-19.3 [facility] Comment on above: Performed By: #### C MP #### [facility] [address] [id number] Dianne Mame Urea nitrogen/Creatinine mass ratio 14.1 mg/mg Normal [facility] Comment on above: Performed By: #### C MP #### [facility] [address] [place], [place] [address] Dianne Timmonsen Vital Signs Date Time Vital Sign Value Performing Clinician Jasoni lity 01-06-2024 19:53-0400 Body height 157.48 cm MD Miracle Padilla Work Phone: [facility] 01-06-2024 19:53-0400 Body temperature 98 [degF] MD Miracle Padilla Work Phone: [facility] 01-06-2024 19:53-0400 Body weight 69.1 kg MD Miracle Padilla Work Phone: [facility] 01-06-2024 19:53-0400 Diastolic blood pressure 71 mm[Hg] MD Miracle Padilla Work Phone: [facility] 01-06-2024 19:53-0400 Heart rate 90 /min MD Miracle Padilla Work Phone: [facility] 01-06-2024 19:53-0400 Respiratory rate 16 /min MD Miracle Padilla Work Phone: [facility] 01-06-2024 19:53-0400 SaO2% (BldA) [Mass fraction] 98 % MD Miracle Padilla Work Phone: [facility] 01-06-2024 19:53-0400 Systolic blood pressure 125 mm[Hg] MD Miracle Padilla Work Phone: [facility] 05-27-2023 11:20-0500 Body temperature 97.52 [degF] [facility] 05-27-2023 11:20-0500 Diastolic blood pressure 84 mm[Hg] [facility] 05-27-2023 11:20-0500 Heart rate 61 /min [facility] 05-27-2023 11:20-0500 Respiratory rate 20 /min [facility] 05-27-2023 11:20-0500 SaO2% (BldA) [Mass fraction] 99 % [facility] 05-27-2023 11:20-0500 Systolic blood pressure 124 mm[Hg] [facility] 05-26-2023 16:14-0500 Body mass index (BMI) [Ratio] 21.86 kg/m2 Bella Camara MD Work Phone: [facility] 05-26-2023 16:14-0500 Body temperature 98.6 [degF] Bella Camara MD Work Phone: [facility] 05-26-2023 16:14-0500 Body weight 67.13 kg Bella Camara MD Work Phone: [facility] 05-26-2023 16:14-0500 Diastolic blood pressure 78 mm[Hg] Bella Camara MD Work Phone: [facility] 05-26-2023 16:14-0500 Heart rate 71 /min Bella Camara MD Work Phone: [facility] 05-26-2023 16:14-0500 SaO2% (BldA) [Mass fraction] 100 % Bella Camara MD Work Phone: [facility] 05-26-2023 16:14-0500 Systolic blood pressure 118 mm[Hg] Bella Camara MD Work Phone: [facility] 05-24-2023 15:36-0500 Body height 175.3 cm Elisabet Giron [employer] [employer] [facility] 05-24-2023 15:36-0500 Body mass index (BMI) [Ratio] 21.86 kg/m2 Elisabet Peterr [employer] [employer] [facility] 05-24-2023 15:36-0500 Body temperature 98.4 [degF] Elisabetal Peterr [employer] [employer] [facility] 05-24-2023 15:36-0500 Body weight 67.13 kg Elisabet Peterr [employer] [employer] [facility] 05-24-2023 15:36-0500 Diastolic blood pressure 72 mm[Hg] Elisabet Hernandeziller [employer] [employer] [facility] 05-24-2023 15:36-0500 Heart rate 109 /min Elisabet Peterr [employer] [employer] [facility] 05-24-2023 15:36-0500 SaO2% (BldA) [Mass fraction] 99 % Elisabet Peterr [employer] [employer] [facility] 05-24-2023 15:36-0500 Systolic blood pressure 112 mm[Hg] Elisabet Hernandeziller [employer] [employer] [facility] 05-19-2023 14:22-0500 Body height 175.3 cm [facility] Work Phone: [facility] 05-19-2023 14:22-0500 Body mass index (BMI) [Ratio] 21.71 kg/m2 [facility] Work Phone: [facility] 05-19-2023 14:22-0500 Body temperature 97.59 [degF] Shala Conn PA Work Phone: [facility] 05-19-2023 14:22-0500 Body weight 66.68 kg Shala Gail PA Work Phone: [facility] 05-17-2023 15:37-0500 Body height 175.3 cm Miracle Padilla MD Work Phone: [facility] 05-17-2023 15:37-0500 Body mass index (BMI) [Ratio] 21.56 kg/m2 Miracle Padilla MD Work Phone: [facility] 05-17-2023 15:37-0500 Body weight 66.22 kg Miracle Padilla MD Work Phone: [facility] 05-17-2023 15:37-0500 Diastolic blood pressure 70 mm[Hg] Miracle Padilla MD Work Phone: [facility] 05-17-2023 15:37-0500 Heart rate 71 /min Miracle Padilla MD Work Phone: [facility] 05-17-2023 15:37-0500 SaO2% (BldA) [Mass fraction] 98 % Miracle Padilla MD Work Phone: [facility] 05-17-2023 15:37-0500 Systolic blood pressure 112 mm[Hg] Miracle Padilla MD Work Phone: [facility] 05-12-2023 11:26-0500 Body height 175.3 cm Miracle Padilla MD Work Phone: [facility] 05-12-2023 11:26-0500 Body mass index (BMI) [Ratio] 21.71 kg/m2 Miracle Padilla MD Work Phone: [facility] 05-12-2023 11:26-0500 Body temperature 98.01 [degF] Miracle Padilla MD Work Phone: [facility] 05-12-2023 11:26-0500 Body weight 66.68 kg Miracle Padilla MD Work Phone: [facility] 05-12-2023 11:26-0500 Diastolic blood pressure 68 mm[Hg] Miracle Padilla MD Work Phone: [facility] 05-12-2023 11:26-0500 Heart rate 65 /min Miracle Padilla MD Work Phone: [facility] 05-12-2023 11:26-0500 SaO2% (BldA) [Mass fraction] 99 % Miracle Padilla MD Work Phone: [facility] 05-12-2023 11:26-0500 Systolic blood pressure 106 mm[Hg] Miracle Padilla MD Work Phone: [facility] 11-10-2022 19:03-0400 Diastolic blood pressure 89 mm[Hg] [facility] 11-10-2022 19:03-0400 Heart rate 53 /min [facility] 11-10-2022 19:03-0400 Mean blood pressure 99 mm[Hg] [facility] 11-10-2022 19:03-0400 Respiratory rate 16 /min [facility] 11-10-2022 19:03-0400 SaO2% (BldA) [Mass fraction] 99 % [facility] 11-10-2022 19:03-0400 Systolic blood pressure 120 mm[Hg] [facility] 11-10-2022 18:15-0400 Diastolic blood pressure 83 mm[Hg] [facility] 11-10-2022 18:15-0400 Heart rate 52 /min [facility] 11-10-2022 18:15-0400 Mean blood pressure 96 mm[Hg] [facility] 11-10-2022 18:15-0400 Respiratory rate 16 /min [facility] 11-10-2022 18:15-0400 SaO2% (BldA) [Mass fraction] 100 % [facility] 11-10-2022 18:15-0400 Systolic blood pressure 122 mm[Hg] [facility] 11-10-2022 17:16-0400 Diastolic blood pressure 80 mm[Hg] [facility] 11-10-2022 17:16-0400 Heart rate 57 /min [facility] 11-10-2022 17:16-0400 Mean blood pressure 93 mm[Hg] [facility] 11-10-2022 17:16-0400 Respiratory rate 16 /min [facility] 11-10-2022 17:16-0400 SaO2% (BldA) [Mass fraction] 100 % [facility] 11-10-2022 17:16-0400 Systolic blood pressure 119 mm[Hg] [facility] 11-10-2022 17:10-0400 Hourly Rounding [facility] 11-10-2022 17:10-0400 Promise to Return [facility] 11-10-2022 16:06-0400 Body temperature 97.88 [degF] [facility] 11-10-2022 16:06-0400 Heart rate 66 /min [facility] 11-10-2022 16:06-0400 Respiratory rate 16 /min [facility] 04-13-2022 00:12-0500 Diastolic blood pressure 61 mm[Hg] DO Phillip Petznick Work Phone: [facility] 04-13-2022 00:12-0500 Heart rate 75 /min DO Phillip Petznick Work Phone: [facility] 04-13-2022 00:12-0500 Respiratory rate 18 /min DO Phillip Petznick Work Phone: [facility] 04-13-2022 00:12-0500 SaO2% (BldA) [Mass fraction] 98 % DO Phillip Petznick Work Phone: 1(611)232-343076 [place] [address] 04-13-2022 00:12-0500 Systolic blood pressure 120 mm[Hg] DO Phillip Petznick Work Phone: 5(157)969-353470 [address] 04-12-2022 22:49-0500 Body height 175.26 cm DO Phillip Petznick Work Phone: 0(936)331-647470 [address] 04-12-2022 22:49-0500 Body temperature 101.4 [degF] DO Phillip Petznick Work Phone: 9(137)144-108270 [address] 04-12-2022 22:49-0500 Body weight 61 kg DO Phillip Petznick Work Phone: 9(698)325-796155 [place] [address] 04-07-2022 23:14-0500 Body height 175.26 cm DO Phillip Petznick Work Phone: 4(278)489-640155 [place] [address] 04-07-2022 23:14-0500 Body temperature 98.7 [degF] DO Phillip Petznick Work Phone: 8(489)173-653970 [address] 04-07-2022 23:14-0500 Body weight 69 kg DO Phillip Petznick Work Phone: 8(964)962-870255 [place] [address] 04-07-2022 23:14-0500 Diastolic blood pressure 67 mm[Hg] DO Phillip Petznick Work Phone: 6(900)864-125176 [place] [address] 04-07-2022 23:14-0500 Heart rate 110 /min DO Phillip Petznick Work Phone: 9(004)791-606376 [place] [address] 04-07-2022 23:14-0500 Respiratory rate 16 /min DO Phillip Petznick Work Phone: 4(789)348-174255 [place] [address] 04-07-2022 23:14-0500 SaO2% (BldA) [Mass fraction] 99 % DO Phillip Petznick Work Phone: 6(010)425-774170 [address] 04-07-2022 23:14-0500 Systolic blood pressure 112 mm[Hg] DO Phillip Petznick Work Phone: [facility] Encounters Encounter Date Encounter Type Care Provider Facility Start: 05-24-2024 End: 05-25-2024 Clinisync Result Encounter Marilyn Foleyerly [facility] [employer] Work Phone: [facility] Unsolicited Start: 05-24-2024 End: 05-25-2024 Clinisync Result Encounter Marilyn Smith [facility] [employer] Work Phone: [facility] Unsolicited Start: 01-07-2024 End: 01-07-2024 Telephone encounter Bella Camara MD Work Phone: [facility] Comment on above: ER Follow-up Start: 01-06-2024 End: 01-06-2024 Emergency department patient visit MD Miracle Padilla Work Phone: [facility] Work Phone: Start: 01-05-2024 End: 01-05-2024 Telephone encounter Miracle Padilla MD Work Phone: [facility] Comment on above: Referral Start: 12-31-2023 End: 12-31-2023 Bamboo flowsheet Miracle Padilla MD Work Phone: [facility] Start: 12-31-2023 End: 12-31-2023 Bamboo flowsheet Miracle Padilla MD Work Phone: [facility] Start: 12-31-2023 End: 12-31-2023 ambulatory MIRACLE PADILLA Not Available Start: 12-31-2023 End: 12-31-2023 Phys/qhp telephone evaluation 11-20 min Miracle Padilla MD Work Phone: [facility] Comment on above: Difficulty sleeping; Anxiety Start: 11-16-2023 End: 11-16-2023 ambulatory KHOA RODRIGUEZ Not Available Start: 11-10-2023 End: 11-10-2023 ambulatory MIRACLE PADILLA Not Available Start: 11-03-2023 End: 11-03-2023 ambulatory ELISABET GIRON Not Available Start: 11-01-2023 End: 11-01-2023 ambulatory MIRACLE PADILLA Not Available Start: 10-27-2023 End: 10-27-2023 ambulatory MIRACLE PADILLA Not Available Start: 10-21-2023 End: 10-21-2023 ambulatory TREY Shaw MEDJAMIE Not Available Start: 10-20-2023 End: 10-20-2023 ambulatory MIRACLE PADILLA Not Available Start: 10-07-2023 End: 10-07-2023 ambulatory ASHLIE CRANE Not Available Start: 10-07-2023 End: 10-07-2023 ambulatory ASHLIE CRANE Facility:[facility] Start: 10-07-2023 End: 10-07-2023 Patient encounter procedure ASHLIE CRANE [facility] Start: 09-30-2023 End: 09-30-2023 ambulatory ABIGAIL TREJO Not Available Start: 09-23-2023 End: 09-24-2023 ambulatory TREY ALVARADO Not Available Start: 09-22-2023 End: 09-22-2023 ambulatory BELLA CAMARA Not Available Start: 09-17-2023 End: 09-17-2023 ambulatory ASHLIE FREEMAN Not Available Start: 09-15-2023 End: 09-15-2023 ambulatory GRAZYNA GONZALEZ Not Available Start: 09-13-2023 End: 09-13-2023 ambulatory SHALA CONN Not Available Start: 09-07-2023 End: 09-07-2023 ambulatory TREY M MEDJAMIE Not Available Start: 09-03-2023 End: 09-03-2023 ambulatory ASHLIE FREEMAN Not Available Start: 08-27-2023 End: 08-27-2023 ambulatory KHOA RODRIGUEZ Not Available Start: 08-25-2023 End: 08-25-2023 ambulatory ASHLIE FREEMAN Not Available Start: 08-24-2023 End: 08-24-2023 ambulatory ASHLIE FREEMAN Not Available Start: 08-20-2023 End: 08-20-2023 ambulatory TREY Shaw MEDJAMIE Not Available Start: 08-19-2023 End: 08-19-2023 ambulatory KHOA RODRIGUEZ Not Available Start: 08-10-2023 End: 08-10-2023 ambulatory GRAZYNA GONZALEZ Not Available Start: 08-05-2023 End: 08-05-2023 ambulatory GRAZYNA GONZALEZ Not Available Start: 08-03-2023 End: 08-03-2023 ambulatory GRAZYNA GONZALEZ Not Available Start: 08-02-2023 End: 08-02-2023 ambulatory BELLA FLOYDGLES Not Available Start: 07-27-2023 End: 07-27-2023 ambulatory KHOA RODRIGUEZ Not Available Start: 07-08-2023 End: 07-08-2023 ambulatory BACILIO Al ALLSOP Not Available Start: 07-05-2023 End: 07-05-2023 ambulatory BELLA Shaw HOA Not Available Start: 06-24-2023 End: 06-24-2023 ambulatory KHOA RODRIGUEZ Not Available Start: 06-21-2023 End: 06-21-2023 ambulatory SHALA Al HILLS Not Available Start: 06-17-2023 End: 06-17-2023 ambulatory SHALA D HILLS Not Available Start: 06-10-2023 End: 06-10-2023 ambulatory MIRACLE WHITTAKERBY Not Available Start: 05-31-2023 End: 05-31-2023 ambulatory ELISABET GIRON Not Available Start: 05-27-2023 End: 05-27-2023 Emergency department patient visit [facility] Start: 05-26-2023 End: 05-26-2023 Patient encounter procedure Bella Camara MD Work Phone: [facility] Comment on above: Anxiety Start: 05-26-2023 End: 05-26-2023 ambulatory BELLA Shaw HOA Not Available Start: 05-25-2023 End: 05-26-2023 ambulatory SHELLY SCOTT Not Available Start: 05-25-2023 Bamboo flowsheet Shelly Stone s PT Work Phone: [facility] Start: 05-25-2023 Bamboo flowsheet Shelly Stone s PT Work Phone: [facility] Start: 05-24-2023 End: 05-24-2023 Patient encounter procedure Elisabet A Donnamiller [facility] Comment on above: Nasal injury, initia l encounter (Primary Dx); Generalized headache; BMI 21.0-21.9, adult Start: 05-24-2023 End: 05-24-2023 ambulatory ELISABET A DONNAMILLER Not Available Start: 05-24-2023 Bamboo flowsheet Elisabet grajedar [facility] Start: 05-24-2023 Bamboo flowsheet Elisabet coburn [facility] Start: 05-19-2023 End: 05-19-2023 [...] Available Start: 04-01-2023 End: 04-01-2023 ambulatory BELLA M HOA Not Available Start: 03-26-2023 End: 03-26-2023 ambulatory Grabiel Luna Facility:[facility] Start: 03-17-2023 End: 03-17-2023 ambulatory BELLA M HOA Not Available Start: 03-02-2023 End: 03-02-2023 ambulatory ELISABET GIRON Not Available Start: 02-26-2023 End: 02-26-2023 ambulatory GRAZYNA GONZALEZ Not Available Start: 11-10-2022 End: 11-10-2022 Emergency department patient visit Michael Hannah [facility] Start: 04-12-2022 End: 04-13-2022 Emergency department patient visit DO Phillip Tripp Work Phone: [facility] Work Phone: Start: 04-07-2022 End: 04-08-2022 Emergency department patient visit DO Phillip Tripp Work Phone: [facility]Emergency [facility] Work Phone: Start: 09-10-2018 End: 09-10-2018 Patient encounter procedure DOCTOR [facility] Facility: Procedures Date Procedure Procedure Detail Performing Clinician Start: 05-24-2024 HEPATITIS B SURF AB QUANT Marilyn Simth [employer] Work Phone: Start: 05-24-2024 MEASLES/MUMPS/RUBELL A IMMUNITY Marilyn Smith [employer] Work Phone: Start: 05-24-2024 VARICELLA-ZOSTER V AB, IGG Marilyn Smith [employer] Work Phone: Start: 05-19-2023 End: 05-19-2023 Radex spine lumbosacral minimum 4 views Shala TOPETE Work Phone: Start: 04-07-2022 SARS-CoV-2, Influenz a & RSV (PCR) DO Phillip Englanddutch Work Phone: Plan of Treatment Date Care Activity Detail Author Start: 02-15-2024 End: 02-15-2024 Patient encounter procedure 02/15/2024 8:00 AM EST Office Visit [facility] [address] [place] [address] Miracle Padilla MD [address] [place] [address] [facility] Start: 01-18-2024 End: 01-18-2024 Patient encounter procedure 01/18/2024 1:30 PM EDT Office Visit [facility] [address] [place] [phone] Miracle Padilla MD [address] [place] [address] [facility] Start: 12-12-2023 Influenza vaccination Influenz a Vaccine (#1) [facility] Start: 06-11-2023 End: 06-11-2023 ambulatory 06/11/2023 3:30 PM EST Treatment [facility] [address] [place] [phone] Shelly Scott, PT [address] [facility] [place] [address] [facility] Start: 06-04-2023 End: 06-04-2023 ambulatory 06/04/2023 4:15 PM EST Treatment [facility] [address] [place] [phone] Shelly Scott, PT [address] [place] [address] [facility] Start: 05-25-2023 End: 05-25-2023 ambulatory [facility] Comment on above: It band syndrome, ri ght; Trochanteric bursitis of right hip Start: 05-24-2023 End: 05-24-2023 Patient encounter procedure 05/24/2023 3:30 PM EST Office Visit [facility] [address] [place] [address] Elisabet Giron NP Arrived [facility] Comment on above: Arrived Start: 04-12-2022 Plain chest X-ray XR chest 1V portab le [facility] Start: 04-12-2022 XR Chest Single view [facility] Patient Education [facility] Work Phone: Patient referral [facility] Work Phone: Immunizations Immunization Date Immunization Notes Care Provider Paz castanon 02-19-2023 influenza, injectabl e, quadrivalent, contains preservative [facility] Work Phone: [facility] 02-19-2023 influenza virus vaccine, unspecified formulation Miracle Padilla MD Work Phone: [facility] 01-15-2020 influenza, injectabl e, quadrivalent, preservative free [facility] Work Phone: [facility] 01-26-2019 influenza, injectabl e, quadrivalent, preservative free [facility] Work Phone: [facility] 01-26-2019 tetanus toxoid, redu baltazar diphtheria toxoid, and acellular pertussis vaccine, adsorbed [facility] Work Phone: [facility] 06-21-2018 tetanus toxoid, redu baltazar diphtheria toxoid, and acellular pertussis vaccine, adsorbed [facility] 06-06-2018 influenza, injectabl e, quadrivalent, preservative free [facility] 01-22-2011 influenza, seasonal, injectable, preservative free [facility] Work Phone: [facility] 01-22-2011 meningococcal polysaccharide (groups A, C, Y and W-135) diphtheria toxoid conjugate vaccine (MCV4P) [facility] Work Phone: [facility] 01-22-2011 tetanus toxoid, redu baltazar diphtheria toxoid, and acellular pertussis vaccine, adsorbed [facility] Work Phone: [facility] 02-16-2009 novel [id number], preservative-free, injectable [facility] Work Phone: [facility] 01-30-2009 influenza virus vaccine, live, attenuated, for intranasal use [facility] Work Phone: [facility] 02-03-2008 influenza, seasonal, injectable [facility] Work Phone: [facility] 03-01-2007 influenza virus vaccine, whole virus [facility] Work Phone: [facility] 07-24-2003 diphtheria, tetanus toxoids and acellular pertussis vaccine [facility] Work Phone: [facility] 07-24-2003 measles, mumps and rubella virus vaccine [facility] Work Phone: [facility] 07-24-2003 poliovirus vaccine, inactivated [facility] Work Phone: [facility] 03-22-2003 influenza, seasonal, injectable [facility] Work Phone: [facility] 09-30-2000 pneumococcal conjuga te vaccine, 7 valent [facility] Work Phone: [facility] 04-08-2000 influenza, seasonal, injectable [facility] Work Phone: [facility] 02-12-2000 influenza virus vaccine, whole virus [facility] Work Phone: [facility] 10-17-1999 diphtheria, tetanus toxoids and acellular pertussis vaccine, unspecified formulation [facility] Work Phone: [facility] 10-17-1999 haemophilus influenz ae type b vaccine, conjugate unspecified formulation [facility] Work Phone: [facility] 10-17-1999 measles, mumps and rubella virus vaccine [facility] Work Phone: [facility] 05-14-1999 poliovirus vaccine, inactivated [facility] Work Phone: [facility] 04-10-1999 diphtheria, tetanus toxoids and acellular pertussis vaccine, unspecified formulation [facility] Work Phone: [facility] 04-10-1999 haemophilus influenz ae type b vaccine, conjugate unspecified formulation [facility] Work Phone: [facility] 04-10-1999 hepatitis B vaccine, pediatric or pediatric/adolescent dosage [facility] Work Phone: [facility] 04-10-1999 trivalent poliovirus vaccine, live, oral [facility] Work Phone: [facility] 01-29-1999 diphtheria, tetanus toxoids and acellular pertussis vaccine, unspecified formulation [facility] Work Phone: [facility] 01-29-1999 haemophilus influenz ae type b vaccine, conjugate unspecified formulation [facility] Work Phone: [facility] 01-29-1999 poliovirus vaccine, inactivated [facility] Work Phone: [facility] 1998 diphtheria, tetanus toxoids and acellular pertussis vaccine, unspecified formulation [facility] Work Phone: [facility] 1998 haemophilus influenz ae type b vaccine, conjugate unspecified formulation [facility] Work Phone: [facility] 1998 hepatitis B vaccine, pediatric or pediatric/adolescent dosage [facility] Work Phone: [facility] 1998 poliovirus vaccine, inactivated [facility] Work Phone: [facility] 1998 hepatitis B vaccine, pediatric or pediatric/adolescent dosage [facility] Work Phone: [facility] NEGATED: Highlighted row has not occurred!03-03-2019 tetanus toxoid, reduced diphtheria toxoid, and acellular pertussis vaccine, adsorbed DO Phillip Tripp Work Phone: [facility] Payers Date Payer Category Payer Self-pay [id number] [address] [employer] [id number] 2022-Present [address] [place] [address] [id number] 1998 Unknown [id number] 2.16.840.1.724011.3.579.2 .593 1998 Unknown [id number] 2.16.840.1.408668.3.579.2 .727 1998 Unknown [id number] 2.16.840.1.973553.3.579.2 .727 1998 Unknown [id number] 2.16.840.1.156368.3.579.2 .727 1998 Unknown [id number] 2.16.840.1.251921.3.579.2 .1258 1998 Unknown [id number] 2.16.840.1.463191.3.579.2 .1258 1998 Unknown [id number] 2.16.840.1.540216.3.579.2 .1258 1998 Unknown [id number] 2.16.840.1.436613.3.579.2 .1258 1998 Unknown [id number] 2.16.840.1.999106.3.579.2 .1258 1998 Unknown [id number] 2.16.840.1.713441.3.579.2 .1258 1998 Unknown [id number] 2.16.840.1.463338.3.579.2 .1258 1998 Unknown [id number] 2.16.840.1.078784.3.579.2 .1258 1998 Unknown [id number] 2.16.840.1.362280.3.579.2 .1258 1998 Unknown [id number] 2.16.840.1.142473.3.579.2 .1258 1998 Unknown [id number] 2.16.840.1.749848.3.579.2 .1258 1998 Unknown [id number] 2.16.840.1.054926.3.579.2 .1258 1998 Unknown [id number] 2.16.840.1.392583.3.579.2 .1258 1998 Unknown [id number] 2.16.840.1.039693.3.579.2 .1258 1998 Unknown [id number] 2.16.840.1.979440.3.579.2 .9 1998 Unknown [id number] 2.16.840.1.189040.3.579.2 .1258 1998 Unknown [id number] 2.16.840.1.089070.3.579.2 .1258 1998 Unknown [id number] 2.16.840.1.386708.3.579.2 .1258 1998 Unknown [id number] 2.16.840.1.153568.3.579.2 .1258 1998 Unknown [id number] 2.16.840.1.562354.3.579.2 .1258 1998 Unknown [id number] 2.16.840.1.895859.3.579.2 .1258 1998 Unknown [id number] 2.16.840.1.424574.3.579.2 .1258 1998 Unknown [id number] 2.16.840.1.563228.3.579.2 .1258 1998 Unknown [id number] 2.16.840.1.024699.3.579.2 .1258 1998 Unknown [id number] 2.16.840.1.974054.3.579.2 .1258 1998 Unknown [id number] 2.16.840.1.342357.3.579.2 .1258 1998 Unknown [id number] 2.16.840.1.900602.3.579.2 .1258 1998 Unknown [id number] 2.16.840.1.694498.3.579.2 .1258 1998 Unknown [id number] 2.16.840.1.200737.3.579.2 .1258 1998 Unknown [id number] 2.16.840.1.322547.3.579.2 .1258 1998 Unknown [id number] 2.16.840.1.580976.3.579.2 .1258 1998 Unknown [id number] 2.16.840.1.860754.3.579.2 .1258 1998 Unknown [id number] 2.16.840.1.732281.3.579.2 .1258 1998 Unknown [id number] 2.16.840.1.190331.3.579.2 .1258 1998 Unknown [id number] 2.16.840.1.671943.3.579.2 .1258 1998 Unknown [id number] 2.16.840.1.371423.3.579.2 .1258 1998 Unknown [id number] 2.16.840.1.632298.3.579.2 .1258 1998 Unknown [id number] 2.16.840.1.977912.3.579.2 .1258 1998 Unknown [id number] 2.16.840.1.691045.3.579.2 .1258 1998 Unknown [id number] 2.16.840.1.953867.3.579.2 .1258 1998 Unknown [id number] 2.16.840.1.399308.3.579.2 .1258 1998 Unknown [id number] 2.16.840.1.335275.3.579.2 .1258 1998 Unknown [id number] 2.16.840.1.675948.3.579.2 .1258 1998 Unknown [id number] 2.16.840.1.435265.3.579.2 .1258 1998 Unknown [id number] 2.16.840.1.519786.3.579.2 .1258 1998 Unknown [id number] 2.16.840.1.186361.3.579.2 .1258 1998 Unknown [id number] 2.16.840.1.643617.3.579.2 .1259 1998 Unknown [id number] 2.16.840.1.920366.3.579.2 .1259 1998 Unknown [id number] 2.16.840.1.582039.3.579.2 .9 1998 Unknown [id number] 2.16.840.1.466199.3.579.2 .9 1998 Unknown [id number] 2.16.840.1.386215.3.579.2 .9 1998 Unknown [id number] 2.16.840.1.589901.3.579.2 .1259 1959 Unknown [id number] Unknown [id number] Private Health Insurance [id number] Unknown [id number] 2.16.840.1.655323.3.579.2 .531 Unknown [id number] 2.16.840.1.801172.3.579.2 .531 Worker's Compensation [employer] Ins Misc [id number] Social History Date Type Detail Facility Tobacco smoking stat [facility] Unknown if ever smoked [facility] Start: 1998 Sex Assigned At Female [facility] Start: 04-12-2014 End: 04-12-2022 Tobacco smoking status NHIS Smoker (finding) [facility] Start: 11-10-2022 Tobacco smoking status Heavy t obacco smoker (finding) [facility] Start: 10-14-2022 End: 03-02-2023 Sex Assigned At Female [facility] Start: 04-12-2014 End: 05-19-2023 Tobacco smoking status NHIS Smokes tobacco daily [facility] Start: 04-12-2014 History of tobacco use Cigarette Smo ker [facility] Start: 10-14-2022 End: 05-19-2023 Cigarettes smoked current (pack per day) - Reported 0.3 [facility] Start: 05-19-2023 End: 11-16-2023 Tobacco use and exposure Smokeless tobacco non-user [facility] Start: 05-19-2023 End: 11-16-2023 Alcohol intake Ex-drinker (finding) [facility] Within the last year , have you been afraid of your partner or ex-partner? No [facility] How often do you att end bahai or latter day services? Patient refused [facility] Are you [...] To some extent [facility] (I/We) worried [facility] (my[facility]our) food would run out before (I/we) got money to buy more. Never true [facility] Start: 11-30-2022 Alcohol Comment 1-2 drinks les s than monthly in the past year, Caffeine intake: 3-4 cups per day occasional, soda/pop [facility] Start: 1998 Sex Assigned At Not on file [facility] Start: 11-16-2023 End: 01-06-2024 Tobacco smoking status NHIS Ex-smoker (finding) [facility] Goals Date Patient Goal Desired Activity /State Functional Status Date Assessment Result Facility 05-27-2023 Functional Status N/A [facility] 11-10-2022 Functional Status N/A [facility] Clinical Notes 09-05-2021 to 01-07-2024 Telephone Encounter - Gege Eden - 01/07/2024 11:37 AM EDTTelephone Encounter - Gege Eden - 01/07/2024 11:37 AM EDTTelephone Encounter - Gianna Holman - 01/07/2024 10:19 AM EDT Note Date & Type Note Facility 01-07-2024 Telephone encount er Note Lvmtcb please complete ayah [facility] 01-07-2024 Miscellaneous Notes Formattin g of this note might be different from the original. Lvmtcb please complete ayah Per fax inbox pt was seen [facility] [place] 01/05 low back pain documented in this encounter [facility] 01-07-2024 Telephone encount er Note Per fax inbox pt was seen [facility] [place] 01/05 low back pain [facility] 01-05-2024 Telephone encount er Note [place] [facility] [place] [facility] 01-05-2024 Miscellaneous Notes Formattin g of this note might be different from the original. [place] [facility] [place] For what symptoms or pain? Pt calls and asks for a referral to pain management, please advise thank you documented in this encounter [facility] 01-05-2024 Telephone encount er Note For what symptoms or pain? [facility] 01-05-2024 Telephone encount er Note Pt calls and asks for a referral to pain management, please advise thank you [facility] 12-31-2023 History of Presen t illness Narrative Images from the original note were not included. Maury Collazo is a 23 y.o. female presents with chief complaint of No chief complaint on file. HPI: History of Present Illness Telephone encounter > Patient consents 11:00 MIN The patient is here for a telephone follow-up regarding her anxiety and depression. She reports an improvement in her mood since her Wellbutrin dosage was increased to 300 mg daily six weeks ago. However, she still experiences emotional sensitivity and is prone to crying. She has recently started a new part-time job and continues her education. Her anxiety has also improved, with no recent panic attacks, but she continues to experience significant anxiety when leaving the house. To manage this, she takes buspirone at least three times daily. She reports no thoughts of self-harm or harm to others. She has misplaced her trazodone medication and requires a new prescription. MEDICATIONS: Current Outpatient Medications Medication Instructions acetaminophen (Tylenol) 325 MG tablet albuterol HFA 90 mcg/act inhaler 2 puffs, Inhalation, Every 4 hours PRN albuterol 2.5 mg, Nebulization, Every 6 hours PRN buPROPion XL (WELLBUTRIN XL) 150 mg, Oral, 2 times daily, Do not crush, chew, or split. busPIRone (BUSPAR) 10 mg, Oral, 3 times daily etodolac XL (LODINE XL) 500 mg, Oral, Daily loratadine (CLARITIN) 10 mg, Oral, Daily medroxyPROGESTERone (DEPO-PROVERA) 150 mg, Intramuscular, Once Nebulizer misc 1 each, Does not apply, Every 4 hours ondansetron (ZOFRAN) 4 mg, Oral, Every 8 hours PRN Rimegepant Sulfate (Nurtec) 75 MG tablet dispersible 1 tablet, Oral, Every other day tiZANidine (ZANAFLEX) 4 mg, Oral, Every 8 hours PRN topiramate (TOPAMAX) 25 mg, Oral, Nightly traZODone (DESYREL) 50 mg, Oral, Nightly ALLERGIES: Allergies Allergen Reactions Cefdinir Other Reaction(s): lip swelling Penicillins Rash Review of Systems Medical, Surgical, Family, and Social History reviewed. OBJECTIVE: Visit Vitals OB Status Unknown Smoking Status Former BP Readings from Last 3 Encounters: 11/10/23 104/66 11/01/23 115/80 10/20/23 116/70 Wt Readings from Last 3 Encounters: 11/16/23 150 lb 11/10/23 150 lb 9.6 oz 11/01/23 148 lb Physical Exam Physical Exam Patient appears oriented and alert, is pleasant and cooperative. Patient is asking and answering questions appropriately. Results ASSESSMENT AND PLAN: Assessment & Plan 1. Major depressive disorder, anxiety, and panic attacks. Her conditions have shown improvement. Given the ongoing symptoms of anxiety and depression, the dosage of bupropion XL (Wellbutrin) will be increased to 450 mg daily. A follow-up conversation is planned in approximately 6 weeks. Assessment/Plan Health Maintenance Due Topic Date Due Influenza Vaccine (1) 12/12/2023 documented in this encounter [facility] 05-27-2023 Hospital Discharg e instructions Patient Education [...] sitting or lying down. General instructions Take jyws-hbg-jkmvgto and prescription medicines only as told by [...] provider. Document Revised: 07/06/2022 Document Reviewed: 02/16/2020 [employer] Patient Education 2022 [employer]. Follow Up Care 05/27/2023 11:17:41 With:Russell Chavez Address: [address] [place], [place] [id number] [facility] (1) When:05/30/2023 12:39:45 [facility] 05-27-2023 Evaluation + Plan note Extrac charli from: Title:ED Note Author:Pola Purcell PA-C te:05/27/23 Knee sprain (S83.90XA: Sprai n of unspecified site of unspecified knee, initial encounter) Orders: Knee Brace XR Knee Complete 4+ Views Right [facility]02-14-2024 History of Present illness Narrative* Bella [...] further adjustments if necessary. documented in this encounterUniversity [facility] [id number] History of Present illness Narrative* Elisabet Giron [...] sub stitutions have occurred. documented in this encounterUniversity of [facility] Children's [id number] History of Present illness Narrative* EFREM Mccabe [...] ultrasound guidance. EFREM Mccabe documented in this [facility]02-07-2024 Instructions* Patient Instructions* EFREM Mccabe - [...] cortisone under ultrasound guidance. documented in this [facility]02-05-2024 History of Present illness Narrative* Maame [...] She states she is going to call [facility], She saw Shala Conn previously. [...] the decisions I made. documented in this encounterUniversity of Missouri Children's [id number] History of Present illness Narrative* Maame Fish [...] the decisions I made. documented in this encounterUniversity of Missouri Children's [id number] Hospital Discharge instructions Patient Education 11/10/2022 19:05:26 [...] to any changes in your symptoms. Take tsxc-vyy-wcoowjg and prescription medicines only as told by [...] provider. Document Revised: 11/15/2021 Document Reviewed: 11/15/2021 [employer] Patient Education 2022 [employer]. 11/10/2022 19:05:26 Abdominal Pain, Adult Abdominal Pain, [...] Follow these instructions at home: Medicines Take rvsy-jmt-bbatzdb and prescription medicines only as told by [...] Watch your condition for any changes. Take dshi-vsk-pobbzpv and prescription medicines only as told by [...] provider. Document Revised: 05/17/2020 Document Reviewed: 08/07/2019 [employer] Patient Education 2022 [employer]. Follow Up Care 11/10/2022 15:59:56 With:Bella Camara Address: [place] [address] Business (1) When:11/13/2022 18:55:01 Comments:Retrurn to the emergency room if your shortness of breath recurs, abdominal pain recurs or any new symptoms. [facility]08-01-2023 Evaluation + Plan noteExtracted from: Title:ED Note Author:Michael Hannah M.D. te:11/10/22 1. Abdominal pain (R10.9: Un specified [...] With Cult Reflex XR Chest Single View [facility]05-27-2022 NoteHISTORY: Mid to lower back pain [...] signed by Jonnie Jacob on 09/09/2021 [id number]istEvaluation noteNo assessment information availableRegency Hospital Company Work Phone: Evaluation note* Diagnosis It band syndrome, right- Primary Right hip pain Pain in joint, pelvic region and thigh Trochanteric bursitis of right hip documented in this encounter [facility] HealthcareEvaluation note* Diagnosis Trochanteric bursitis of right hip- Primary documented in this encounter [facility] HealthcareEvaluation note* Diagnosis Nasal injury, initial encounter- Primary Generalized headache BMI 21.0-21.9, adult documented in this encounter [facility] HealthcareEvaluation note* Diagnosis Trochanteric bursitis of right hip- Primary Levoscoliosis documented in this encounter [facility] HealthcareEvaluation note* Diagnosis Anxiety Anxiety state, unspecified documented in this encounter [facility] HealthcareEvaluation note* Diagnosis Difficulty sleeping Unspecified sleep disturbance Anxiety Anxiety state, unspecified documented [facility] this encounter [facility] Narrative No data available for this section [facility] Additional Instructions If your symptoms return/worsen or you develop any further concerns or symptoms please see your doctor or return to the emergency department immediately.[facility] Work Phone: Hospital Discharge instructions Additional Instructions Increase your intake of fluids. Take Zofran as prescribed for any nausea. Take Tamiflu to help decrease the duration of symptoms. Take Motrin Tylenol as needed for fever and chest pain. Follow-up with PCP for any persistent symptoms in 5 to 7 days.[facility] Work Phone: Hospital Discharge instructions No data available for this section [facility] No data available for this section [facility] Summary Purpose Family History Relationship Condition Age at Onset Recorded Date/T fadi grandparent Unknown grandparent Diabetes mellitus Unknown Advance Directives Advance Directive Response Recorded Date/ Time Advance Directives No February 08, 2017 12:49pm Advance Directive Response Recorded Date/ Time Advance Directives No February 08, 2017 1:49pm Assessments No Assessments Information Available Chief Complaint and Reason for Visit Chief Complaint cough, body aches, d ifficulty breathing Chief Complaint cough, body aches, d ifficulty breathing chest pain Chief Complaint left hip and back pa in, left leg tingling Reason for Referral Specialty Diagnoses / Procedures Referred By Angel gupta Referred To Contact Physical Therapy Diagnoses It band syndrome, right Trochanteric bursitis of right hip Procedures [place] OFFICE/OUTPATIENT [facility] 60 MINUTES Shala Conn, PA [address] [place] [address] Daja Carter, PT [address] [place] [address] Referral ID Status Reason Start Date Expiration Date Visits Requested Visits Authorized [id number] Pending Review Specialty Services Required 05/19/2023 11/15/2023 1 1 Additional Source Comments INFORMATION SOURCE (unrecogn ized section and content) DATE CREATED AUTHOR 09/14/2018 [facility] DATE CREATED AUTHOR AUTHOR'S ORGANIZ ATION [facility] DATE CREATED AUTHOR AUTHOR'S ORGANIZ ATION 10/05/2020 [facility] DATE CREATED AUTHOR AUTHOR'S ORGANIZ ATION 09/09/2021 [facility] dical Specialist DATE CREATED AUTHOR AUTHOR'S ORGANIZ ATION 10/16/2023 Chan Carter [facility] DATE CREATED AUTHOR AUTHOR'S ORGANIZ ATION 01/03/2024 [facility] dical Specialists EPIC DATE CREATED AUTHOR AUTHOR'S ORGANIZ ATION 01/21/2024 [facility] Care Teams (unrecognized sec tion and content) Team Status: Inactive Member Role Status Dates Phillip Tripp , DO Primary Care Provider Active Taran Rea , DO Emergency Provider Active Team Status: Active Member Role Status Dates Phillip Trpip , DO Primary Care Provider Active Team Status: Inactive Member Role Status Dates Phillip Tripp , DO Primary Care Provider Active Phillip Shaw , DO Emergency Provider Active Exhibit Carpenter Relationship Specialty Start Date End Date Bella Camara MD [address] [place] [address] PCP - General Family Medicine 09/04/22 Morenita Corona, PA [address] [place] [address] PCP - Medical [place] [employer] 09/10/22 Exhibit Carpenter Relationship Specialty Start Date End Date Bella Camara MD [address] [place] [address] PCP - General Family Medicine 09/04/22 Morenita Corona, PA [address] [place] [address] PCP - Medical [place] [employer] 09/10/22 Exhibit Carpenter Relationship Specialty Start Date End Date Bella Camara MD [address] [place] [address] PCP - General Family Medicine 09/04/22 Morenita Corona PA [address] [place] [address] PCP - Medical [place] [employer] 09/10/22 Exhibit Carpenter Relationship Specialty Start Date End Date Bella Camara MD [address] [place] [address] PCP - General Family Medicine 09/04/22 Morenita Corona, PA [address] [facility] [address] [place] [address] PCP - Medical [place] [employer] 09/10/22 Exhibit Carpenter Relationship Specialty Start Date End Date Bella Camara MD [address] [place] [address] PCP - General Family Medicine 09/04/22 Morenita Corona, PA [address] [place] [address] PCP - Medical [place] [employer] 09/10/22 Exhibit Carpenter Relationship Specialty Start Date End Date Bella Camaar MD [address] [place] [address] PCP - General Family Medicine 09/04/22 Morenita Corona, PA [address] [facility] [address] [place] [address] PCP - Medical [place] [employer] 09/10/22 Exhibit Carpenter Relationship Specialty Start Date End Date Bella Camara MD [address] [place] [address] PCP - General Family Medicine 09/04/22 Morenita Corona, PA [address] [place] [address] [place] [address] PCP - Medical [place] [employer] 09/10/22 Team Status: Active Member Role Status Dates Miracle Padilla MD Primary Care Provider Active Team Status: Inactive Member Role Status Dates Miracle Padilla MD Primary Care Provider Active S tart: January 06, 2024 End: January 06, 2024 [facility] Emergency Provider Active Start: January 06, 2024 End: January 06, 2024 Exhibit Carpenter Relationship Specialty Start Date End Date Bella Camara MD [address] [place] [address] PCP - General Family Medicine 09/04/22 01/06/24 Exhibit Carpenter Relationship Specialty Start Date End Date Bella Camara MD [address] [place] [address] PCP - General Family Medicine 09/04/22 Exhibit Carpenter Relationship Specialty Start Date End Date Bella Camara MD [address] [place] [address] PCP - General Family Medicine 09/04/22 Exhibit Carpenter Relationship Specialty Start Date End Date Miracle Padilla MD [address] [place] [address] PCP - General Family Medicine 01/07/24 Exhibit Carpenter Relationship Specialty Start Date End Date Miracle Padilla MD [address] [place] [address] PCP - General Family Medicine 01/07/24 Goals (unrecognized section and content) Goals may be documented in a n alternate sectionGoals may be documented in an alternate section No data available for this section No data available for this section No data available for this sectionGoals may be documented in an alternate section Reason for Visit (unrecogniz ed section and content) Reason Comments Pain Reason Comments Facial Injury Reason Comments Hip Pain Reason Onset Date Comments Referral 01/05/2024 Reason Onset Date Comments ER Follow-up 01/07/2024 FOR RECORDS PERTAINING TO PATIENTS WHO ARE [...] BE BASED ON THE PRIMARY CLINICAL RECORDS. [facility] [employer] [facility]. provides no warranty or guarantee of the accuracy or completeness of information in this document.
[2024-06-02] MEDS: IBUPROFEN 600 MG TABLET PO (21:14)
--- NOTE | 2024-06-02 21:30 | ED.GENADUL1 ---
HPI HPI - General Adult General Chief complaint: Extremity Injury, Upper Stated complaint: r thumb injury Time Seen by Provider: 06/02/24 20:41 Source: patient Mode of arrival: walk-in Limitations: no limitations History of Present Illness HPI narrative: 23-year-old female to the emergency department chief complaint of injury to her right thumb. 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 She has pain at the base of the right thumb. No other injuries. Otherwise at her baseline health. Denies . Related Data Home Medications ?Medication ?Instructions ?Recorded ?Confirmed bupropion HCl 150 mg 24 hr tablet, 150 mg PO QDAY 06/02/24 06/02/24 extended release duloxetine 60 mg capsule,delayed 60 mg PO QDAY 06/02/24 06/02/24 release Allergies Allergy/AdvReac Type Severity Reaction Status Date / Time penicillin G Allergy Mild Rash Verified 11/27/23 09:17 cefdinir AdvReac Severe Anaphylaxis Verified 11/27/23 09:17 Opioid HPI Opioid Management Most Recent Opioid Data: Last Pain Scale 6 11/27/23 09:33 11/27/23 Review of Systems ROS Status of ROS 10 or more systems reviewed and unremarkable except as noted in history and below PFSH PFSH Social History Smoking status: Current every day smoker Little interest or pleasure in doing things: not at all Feeling down, depressed, or hopeless: not at all Exam Narrative Exam Narrative: VITALS: I have reviewed the triage vital signs. GENERAL: Well developed, well appearing adult in no acute distress. Right hand: No deformity. Radial pulse intact. Cap refill intact all digits. Sensation intact over the hand. Tenderness at the base of the thumb. No laceration. SKIN: Warm and dry. Normal turgor. No rash or lesions appreciated. PSYCH: Mood, affect, and interaction is appropriate to the setting. Constitutional Vital Signs, click to edit/add: Last Vital Signs Temp 98.2 F 06/02/24 20:38 Pulse 63 06/02/24 20:38 Resp 18 06/02/24 20:38 BP 121/70 06/02/24 20:38 Pulse Ox 100 06/02/24 20:38 O2 Del Method Room Air 06/02/24 20:38 Course Vital Signs Vital signs: Vital Signs Temperature 98.2 F 06/02/24 20:38 Pulse Rate 63 06/02/24 20:38 Respiratory Rate 18 06/02/24 20:38 Blood Pressure 121/70 06/02/24 20:38 Pulse Oximetry 100 06/02/24 20:38 Oxygen Delivery Method Room Air 06/02/24 20:38 Temperature 98.2 F 06/02/24 20:38 Pulse Rate 63 06/02/24 20:38 Respiratory Rate 18 06/02/24 20:38 Blood Pressure 121/70 06/02/24 20:38 Pulse Oximetry 100 06/02/24 20:38 Oxygen Delivery Method Room Air 06/02/24 20:38 Medical Decision Making MDM Narrative Medical decision making narrative: 23-year-old female to the emergency department chief complaint of traumatic injury to her right thumb. Vital stable, the patient is afebrile. X-ray is ordered. Ibuprofen for discomfort. X-ray without acute fracture or dislocation. She has significant pain and apprehension with movement of the thumb. Will place in a thumb spica and refer to orthopedics. Ibuprofen, RICE therapy. Return precautions were discussed. All questions were answered. Patient was discharged home. Imaging Data Hand x-ray: Attestation: I have reviewed the pertinent imaging results. Radiologist's impression: See PACS document Discharge Plan Discharge Chief Complaint: Extremity Injury, Upper Clinical Impression: Sprain of right thumb Patient Disposition: Home, Self-Care Time of Disposition Decision: 22:26 Condition: Good Mode of Transportation: Private Vehicle Prescriptions / Home Meds: No Action duloxetine 60 mg capsule,delayed release(DR/EC) 60 mg PO QDAY bupropion HCl 150 mg tablet extended release 24 hr 150 mg PO QDAY Print Language: [place] Instructions: Finger Sprain (ED), P.R.I.C.E. Treatment (ED) Referrals: Sang Porter MD [Physician] - 1 week
[2024-06-02 22:37] VITALS: BP 145/77; PULSE 61; O2SAT 99
== END 2024-06-02 22:37 | disposition home or self-care (01) ==
PROVIDERS: Emergency Provider Student in an Organized Health Care Education/Training Program; PCP Student in an Organized Health Care Education/Training Program
DX: S63.601A Unspecified sprain of right thumb, initial encounter (principal); X50.1XXA Overexertion from prolonged static or awkward postures, initial encounter; F17.200 Nicotine dependence, unspecified, uncomplicated
CPT/HCPCS: 73140; 99283

== ENCOUNTER 2024-06-08 17:37 | Emergency (ER) | payer SELFPAY ==
--- OUTSIDE RECORDS SUMMARY | 2024-06-08 17:45 | XMS_ITS | CCD ---
Author Organization [facility] CliniSyin Care Team Providers Care 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 Name Role Phone MISC, DOCTOR Primary Care Unavailable SABA SOLO Admitting Unavailable SABA SOLO Attending Unavailable SABA SOLO Consulting Unavailable DO Phillip Tripp Primary Care Provider DO Taran Rea Emergency Provider DO Phillip Shaw Emergency Provider UnaBella Logan Primary Care Physician [phone] Bella Camara MD Primary Care Provider Morenita [...] Unavailable Miracle Padilla MD Primary Care Provider Unavailable Unavailable Unavailable Allergies Allergy Classification Reported Allergen(s) Allergy Type Date of Onset Reaction(s) Facility (4 sources) Penicillins Drug allergy (disorder) 4 [facility] Repository (4 sources) Penicillin; Translations: [penicillin] Drug Allergy [facility] (18 sources) cefdinir Drug Allergy 2 [facility] (18 sources) Penicillins Drug Allergy 1 Rash [facility] (1 source) No Known Medication Allergies; Translations: [No Known Medication Allergies] Propensity to adverse reactions (disorder) [facility] Repository (1 source) Penicillins Drug allergy (disorder) 4 [facility] Repository Medications Current Medications Medication Drug [...] Start: 05-20-2023 take 5 tablets by [facility] once daily, then take 4 tablets by [...] Ordered Start: 04-12-2022 take 1 tablet by [facility] twice daily Sucralfate (Carafate) 1 gram tablet [...] (Phenergan) 25 mg suppository Discontinued [address] Q4H 6 August 16, 2018 12:00am September [...] (3 sources) Start: 10-18-2017 End: 04-12-2018 take 64914 [IU] by mouth once daily Vitamin D3 Discontinued 59072 UNIT PO Daily October 18, 2017 12:00am April 12, 2018 3:35am Start: 10-18-2017 End: 04-12-2018 take 86710 [IU] by mouth once daily Vitamin D3 Discontinued 04838 UNIT PO Daily October 17, 2017 11:00pm [...] SURF AB QUANT 9.1 Abnormal Immunity>10 mIU/mL [facility] Comment on above: Status of Immunity A nti-HBs Level Inconsistent with Immunity 0.0 - 10.0 Consistent with Immunity >10.0 Interpretation and review of laboratory results Abnormal [facility] MEASLES/MUMPS/RUBELLA IMMUNI TYon 05-25-2024 MEASLES ANTIBODIES, IGG >300.0 Immu ne >16.4 AU/mL [facility] Comment on above: Negative <13.5 Equivocal 13.5 - 16.4 Positive >16.4 Presence of antibodies to Rubeola is presumptive evidence of immunity except when acute infection is suspected. MUMPS ABS, IGG 69.4 AU/mL Immune >10.9 [facility] Comment on above: Negative <9.0 Equivocal 9.0 - 10.9 Positive >10.9 A positive result generally indicates past exposure to Mumps virus or previous vaccination. Performed at: [address] [id number] Linux Server Administrator: Nikita Humphries PhD, Phone: [phone] RUBELLA ANTIBODIES, IGG 2.80 Immu ne >0.99 index [facility] Comment on above: Non-immune <0.90 Equivocal 0.90 - 0.99 Immune >0.99 No Panel Informationon 05-25 [facility] VARICELLA-ZOSTER V AB, IGGon 05-25-2024 VARICELLA-ZOSTER V AB, IGG Non-Reactive Non Reactive [facility] Comment on above: Please note refere nce interval change A Reactive result is considered evidence of immunity to VZV. Reactive indicates that VZV IgG was detected consistent with previous infection and/or vaccination. A Non Reactive result indicates that VZV IgG was not detected suggesting that immunity has not been acquired. Performed at: - [address] [id number] Linux Server Administrator: Nikita Humphries PhD, Phone: [phone] XR Chest 2 [facility]son XR Chest 2 [...] mGy = . DAP = . Normal [facility] MR KNEE RIGHT WO IV CONTRAST on [...] for Treatmenton 05-13 Consent for Treatment [id number] [facility] [id number]#1 .00TIFF Normal [facility] Discharge Instructionson Discharge Instructions [id number]# 1.00TIFF Normal [facility] ED Clinical Summaryon 2023 ED Clinical Summary [place] [id number] ED Clinical Summary Person Information Name: MAURY COLLAZO [place] Age: 22 Years : 2000 Sex: Female Language: Bangladeshi PCP: oHa JASSO, Bella Shaw Marital Status: Single Visit [...] 05/27/2023 13:04:43 05/27/2023 13:04:43 05/27/2023 13:04:43 ADDRESS: [facility] [address] [facility] [id number] [facility] DOC NOTES: MEDICAL INFORMATION: Prescriptions Given: Medications to Continue with No Changes Other Medications promethazine (promethazine 25 mg Tab) 1 Tablets By Mouth every 6 hours as needed as needed for nausea/vomiting. Refills: 0. PATIENT EDUCATION INFORMATION: Instructions: Knee Sprain, Adult Follow up: With: Address: When: Russell Chavez [address] [place], [place] [id number] Business (5) In 3 days 05/30/2023 DIAGNOSIS: Knee sprain Normal [facility] ED Noteon 05-27-2023 ED Note [id number] 0 [id number]# 1.00TIFF Normal [facility] ED Note-Physicianon 05-27-19 ED Note-Physician Basic [...] Scott In 3 days 05/30/2023 EST [address] [place] [address]- Business (1) Additional Instructions: Patient Education Knee [...] made to ensure accuracy, however, inadvertently computerized mica paster mistakes may be present. Appropriate healthcare PPE [...] = na Signed By: Kalin Goldberg MD [facility] Comment on above: Result Comment: Elec [...] or lying down. General instructions ? Take yrra-nym-llxkvto and prescription medicines only as told by [...] Reviewed: 02/16/2020 Elsevier Patient Education ? 2022 [employer] Normal [facility] ED Patient Summaryon 024 ED Patient Summary [address] [place] [address] Patient Discharge Instructions Person Information Name: MAURY COLLAZO Age: 22 Years Arrival Date: 05/27/2023 11:15:44 Discharge Diagnosis: Knee sprain Primary Care Physician: Bella Camara MD Provider Information Primary Provider: Michael Hannah M.D. Advanced Iuss Master Analyst:Pola Purcell PA-C The exam and treatment you received in the Emergency Department were for an urgent problem and are not intended as complete care. It is important that you follow up with a doctor, nurse practitioner, or physician?s rehabilitation assistant for ongoing care. If your symptoms [...] Follow-up Instructions: With: Address: When: Russell Chavez [address] [place], [place] [address] Business (1) In 3 days 05/30/2023 In the event that this physician does not participate in your insurance network, please consult with your insurance company to find a nearby participating provider. Patient Education Materials: Knee Sprain, Adult A MESSAGE TO ALL PATIENTS REGARDING OPIOIDS PRESCRIPTION OPIOIDS: WHAT YOU NEED TO KNOW Prescription opioids can be used to help relieve cyalytci-em-ztmzxn pain and are often prescribed following a [...] be struggling with addiction, tell your health rn transitional care and ask for guidance or call [facility] National Helpline at 5-116-232-EQMF. v Source: [place] Department of Health (more [...] mGy = na DAP = na Normal [facility] XR Hip - right 3 [facility] Result: AP pelvis bilateral hip and frog view of the right hip taken in the office today which do not demonstrate any congenital abnormalities with a femoral head or acetabulum no evidence of acute fracture or bony tumor seen. [facility] Study observation (narrative) [facility] XR Lumbar spine 4 [facility] Result: AP lateral and oblique of the lumbar spine taken in the office which he end demonstrates no change in her thoracolumbar scoliosis she does have noted Schmorl nodes multiple discs and developing some early facet hypertrophy in the lumbar spine [facility] Radiology Study observation (narrative) [facility] 03-26-2023 L - -------- Specimen: [id number] Received: 03/29/23 Status: MARYA Trish Num: [id number] Spec Type: Surgical Subm Dr: GRABIEL LUNA MD Tissues: A Skin Cyst (VAGINAL CYST WALL) Procedures: HE, Gross/Micro L3 -------- Age/ Patient Sex Location Account Attending Physician -------- Maury Collazo 22/F [place] [id number] GRABIEL LUNA MD -------- SPEC NUM: [id number] RECD: 03/29/23 STATUS: MARYA CERNA NUM: [id number] BASIL: 03/26/23- [facility] DR: GRABIEL LUNA MD ENTERED: 03/29/23-4 [facility] DR: Jamie [facility] SPEC TYPE: Surgical DEPT: S ORDERED: HE, [...] microscopic examination confirms the diagnosis. CPT Codes 36216 -------- -------- Specimen: [id number] Received: 03/29/23 Status: MARYA Walshblake Num: [id number] Spec Type: Surgical Subm Dr: GRABIEL LUNA MD Tissues: A Skin Cyst (VAGINAL CYST WALL) Procedures: Basil PRATHER/Harmony L3 -------- Patient: Maury Collazo [id number] (Continued) -------- Signed (signature on file) Jessica Osorio MD 03/30/234 Normal [facility] XR Chest Single Viewon [...] mGy = na DAP = na Normal [facility] Auto Diffon 11-10-2022 Basophils/100 WBC (Bld) 0.5 % Normal 0.0-2.0 [facility] Comment on above: Order Comment: Order Added by Discern Expert. Performed By: #### 2 681661, 6270443, 96260201, 7780412, 8709485, 64481750, 4044110, 8630014 ####[facility] [address] [place] [address] Basophils/Leukocytes Auto (Bld) [Pure # fraction] 0.0 E9/L Normal 0.0-0.2 [facility] Comment on above: Order Comment: Order Added by Discern Expert. Performed By: #### 2 924457, 6601692, 38850202, 6243598, 0038308, 17071558, 0465239, 6238383 ####[facility] [address] [place] [address] Eosinophils/100 WBC (Bld) 1.0 % Normal 0.0-8.0 [facility] Comment on above: Order Comment: Order Added by Discern Expert. Performed By: #### 2 775716, 7231695, 25567141, 3170373, 2545072, 59350967, 4819398, 4288800 ####[facility] [address] [place] [address] Eosinophils/Leukocytes Auto (Bld) [Pure # fraction] 0.1 E9/L Normal 0.0-0.5 [facility] Comment on above: Order Comment: Order Added by Discern Expert. Performed By: #### 2 504868, 3434971, 74188909, 6515245, 8264241, 61685541, 8106611, 8103310 ####[place] [address] [place] [address] Lymphocytes/100 WBC (Bld) 26.5 % Normal 14.0-50.0 [facility] Comment on above: Order Comment: Order Added by Discern Expert. Performed By: #### 2 775626, 8122173, 72351527, 6241620, 0157040, 95681083, 1275070, 4911498 ####[place] [address] [place] [address] Lymphocytes/Leukocytes Auto (Bld) [Pure # fraction] 2.3 E9/L Normal 1.0-4.0 [facility] Comment on above: Order Comment: Order Added by Discern Expert. Performed By: #### 2 838917, 6680699, 01689937, 1953923, 8846449, 27752717, 6601417, 4337165 ####[place] [address] [place] [address] Monocytes/100 WBC (Bld) 5.2 % Normal 4.0-14.0 [facility] Comment on above: Order Comment: Order Added by Discern Expert. Performed By: #### 2 057982, 0213779, 11073040, 8260932, 0287459, 78152594, 5712067, 9193331 ####[place] [address] [place] [address] Monocytes/Leukocytes Auto (Bld) [Pure # fraction] 0.4 E9/L Normal 0.2-1.0 [facility] Comment on above: Order Comment: Order Added by Discern Expert. Performed By: #### 2 635704, 8717980, 38906270, 4951239, 1744504, 29275078, 8710106, 6385347 ####[facility] [address] [place] [address] Neutrophils/100 WBC (Bld) 66.8 % Normal 36.0-75.0 [facility] Comment on above: Order Comment: Order Added by Discern Expert. Performed By: #### 2 711228, 7309027, 98037655, 1226760, 7059159, 62006232, 0091630, 5124008 ####[facility] [address] [place] [address] Neutrophils/Leukocytes Auto (Bld) [Pure # fraction] 5.7 E9/L Normal 2.0-7.5 [facility] Comment on above: Order Comment: Order Added by Discern Expert. Performed By: #### 2 107675, 3691545, 33562112, 3819934, 7347277, 34612979, 8076086, 2205221 ####[facility] [address] [place] [address] BMPon 11-10-2022 Creatinine [Mass/Vol] 0.8 mg/dL Normal 0.5-1.3 [facility] Comment on above: Performed By: #### 2 796420, 5230897, 62463168, 4689081, 7423202, 06431365, 1024474, 4767297 ####[facility] [address] [place] [address] Urea nitrogen [Mass/Vol] 13 mg/dL Normal 5-21 [facility] Comment on above: Performed By: #### 2 726931, 1472947, 83284178, 0284302, 0645790, 05571329, 0198833, 8555641 ####[facility] [address] [place] [address] Urea nitrogen/Creatinine [Mass ratio] 16 No Units Normal 10-20 [facility] Comment on above: Performed By: #### 2 269031, 4121483, 33863598, 1762639, 5483545, 07039110, 2780610, 6271561 ####[facility] [address] [place] [address] Anion gap [Moles/Vol] 13 mmol/L Normal 6-16 [facility] Comment on above: Performed By: #### 2 266063, 9277003, 42783853, 7680510, 2374882, 78153557, 7897377, 1765771 ####[facility] [address] [place] [address] Calcium [Mass/Vol] 9.7 mg/dL Normal 8.9-11.1 [facility] Comment on above: Performed By: #### 2 691537, 0347272, 33037822, 5459926, 2058207, 11452423, 2838932, 5560009 ####[facility] [address] [place] [address] Chloride [Moles/Vol] 105 mmol/L Normal 101-111 [facility] Comment on above: Performed By: #### 2 689587, 8073908, 23277034, 8988302, 1740213, 23462406, 5137229, 8784640 ####[facility] [address] [place] [address] CO2 [Moles/Vol] 24 mmol/L Normal 21-31 [facility] Comment on above: Performed By: #### 2 575597, 1591149, 80168080, 5931955, 9432676, 75684988, 1608023, 8602873 ####[facility] [address] [place] [address] Glucose [Mass/Vol] 96 mg/dL Normal 55-199 [facility] Comment on above: Result Comment: If t his glucose result represents a fasting glucose, interpretation should refer to the following reference range: 55-99 mg/dL Performed By: #### 2 300929, 5351252, 04773964, 2074781, 3882729, 95648755, 2299188, 8583828 ####[facility] [address] [place] [address] Potassium [Moles/Vol] 3.8 mmol/L Normal 3.5-5.3 [facility] Comment on above: Performed By: #### 2 471610, 1495346, 47133900, 2435823, 4838516, 86546966, 8126042, 4006447 ####[facility] [address] [place] [address] Sodium [Moles/Vol] 138 mmol/L Normal 135-145 [facility] Comment on above: Performed By: #### 2 543710, 6626739, 21209334, 8389166, 1572814, 22915009, 2369357, 5807567 ####[place] [place] [address] CBC w/ Auto Diffon 3 Erythrocyte distribution width (RBC) [Ratio] 13.5 % Normal 10.9-14.2 [facility] Comment on above: Performed By: #### 2 123229, 7965316, 08893358, 4685377, 1291837, 35798657, 9034813, 9161023 ####[place] [address] [address] [place] [address] Hematocrit (Bld) [Volume fraction] 40.4 % Normal 34.0-46.0 [facility] Comment on above: Performed By: #### 2 370591, 2813454, 88228794, 2445446, 8818192, 49539835, 9825955, 8394714 ####[facility] [address] [place] [address] Hemoglobin (Bld) [Mass/Vol] 13.7 g/dL Normal 12.0-16.0 [facility] Comment on above: Performed By: #### 2 755308, 8635938, 59378692, 2457068, 1674918, 67540531, 5270440, 3475067 ####[facility] [address] [place] [address] MCH (RBC) [Entitic mass] 30.0 pg Normal 27.0-34.0 [facility] Comment on above: Performed By: #### 2 102623, 0300261, 26049566, 9355240, 1641346, 18867657, 6626021, 5294102 ####[facility] [address] [place] [address] MCHC (RBC) [Mass/Vol] 33.9 g/dL Normal 31.4-36.0 [facility] Comment on above: Performed By: #### 2 579111, 3751724, 78777928, 7939013, 4100305, 81342491, 2329657, 4068163 ####[address] [address] MCV (RBC) [Entitic vol] 88.6 fL Normal 80.0-100.[address] [facility] Comment on above: Performed By: #### 2 381471, 9650332, 63605485, 8307297, 5965168, 98074542, 1374753, 3552733 ####[address] [address] Platelet mean volume (Bld) [Entitic vol] 10.8 fL Normal 6.4-10.8 [facility] Comment on above: Performed By: #### 2 833876, 4904682, 97570967, 2319477, 1828985, 36232541, 3107686, 1254191 ####[facility] [address] [place] [address] Platelets (Bld) [#/Vol] 192.0 E9/L Normal 150.0-500.0 [facility] Comment on above: Performed By: #### 2 623875, 3541425, 25748192, 2310456, 3555575, 25722268, 8102000, 9634175 ####[address] [address] RBC (Bld) [#/Vol] 4.6 E12/L Normal 4.3-5.9 [facility] Comment on above: Performed By: #### 2 926622, 2870656, 17271627, 4124680, 9513113, 03208598, 5712798, 2491245 ####[facility] [address] [place] [address] WBC corrected for nucl RBC Auto (Bld) [#/Vol] 8.5 E9/L Normal 4.0-11.0 [facility] Comment on above: Result Comment: Slid e reviewed by MA. Performed By: #### 2 336546, 3042548, 50825336, 8847405, 4595260, 46412898, 9761925, 8261183 ####[facility] [address] [place] [address] CHEMISTRYOrdered By: SYSTEM SYSTEM on 11-10-2022 Albumin [...] 105 mL/min/1.73 m2 Normal >=59mL/min/1 .73 m2 [facility] [place] S Globulin (S) [Mass/Vol] 3.1 g/dL [...] FEU Low 215 - 500 ng/mL FEU [facility] [place] Auto Coag Consent for Treatmenton Consent for Treatment [id number]#1 .00CD:127 Normal [facility] D-Dimeron 11-10-2022 Fibrin D-dimer FEU (PPP) [Mass/Vol] <215 Low 215-500 [facility] Comment on above: Result Comment: This [...] infections Liver cirrhosis Performed By: #### 2 508731, 5088608, 34512045, 1872527, 1657829, 43629446, 7709790, 0094570 ####[facility] [address] [place] [address] Discharge Instructionson Discharge Instructions [id number]# 1.00CD:127 Normal [facility] ED Clinical Summaryon 2022 ED Clinical Summary [address] [address] ED Clinical Summary Person Information Name: MAURY COLLAZO Lisa/[facility] Age: 22 Years : 2000 Sex: Female Language: Bangladeshi PCP: Bella Camara MD Marital Status: Single [...] 19:05:26 11/10/2022 19:05:26 ADDRESS: [address] [facility] [address] [id number] [facility] NOTES: MEDICAL INFORMATION: Prescriptions Given: New Medications [...] Address: When: [place] [address] [place] [address] Business (1) In 3 days 11/13/2022 Comments: Retrurn to the emergency room if your shortness of breath recurs, abdominal pain recurs or any new symptoms. DIAGNOSIS: 1:Abdominal pain; 2:Shortness of breath Normal [facility] ED Note-Physicianon 11-11-19 ED Note-Physician Basic [...] and Complexity of Problems Differential Diagnosis: [] [facility] Data External documents reviewed: [] My EKG [...] Contact I (more content not included)... Normal [facility] Comment on above: Result Comment: Elec [...] these instructions at home: Medicines ? Take zlnb-bsu-adxwtde and prescription medicines only as told by [...] your condition for any changes. ? Take ngso-gvb-ojxkqpn and prescription medicines only as told by [...] provider. Document Revised: 05/17/2020 Document Reviewed: 08/07/2019 [employer] Patient Education ? 2022 [employer]. Pulmonary Medicine Shortness of Breath, Adult Shortness [...] any changes in your symptoms. ? Take mima-fgd-fedaetg and prescription medicines only as told by [...] ? D (more content not included)... Normal [facility] ED Patient Summaryon 023 ED Patient Summary [address] [address] Patient Discharge Instructions Person Information Name: MAURY COLLAZO Age: 22 Years Arrival Date: 11/10/2022 15:56:06 Discharge Diagnosis: 1:Abdominal pain; 2:Shortness of breath Primary Care Physician: Bella Camara MD Provider Information Primary Provider: Michael Hannah M.D. Advanced Iuss Master Analyst:None The exam and treatment you received in the Emergency Department were for an urgent problem and are not intended as complete care. It is important that you follow up with a doctor, nurse practitioner, or physician?s rehabilitation assistant for ongoing care. If your symptoms [...] Instructions: With: Address: When: Bella Camara [address] [facility] [place] [address] Business (1) In 3 days 11/13/2022 Comments: [...] opioids can be used to help relieve gcovhqzh-ec-rfvkmq pain and are often prescribed following a [...] struggling wi (more content not included)... Normal [facility] HEMATOLOGYOrdered By: SYSTEM SYSTEM on 11-10-2022 [...] above: Result Comment: Slid e reviewed by [facility] Panelon 11-10-2022 Bilirubin.indirect [Mass or moles/Vol] UTC Abnormal 0.1-0.9 [facility] Comment on above: Result Comment: Resu lt verified by Discern Rule. Performed result UTC (Unable to Calculate) was sent as an Alpha code due the inability to calculate a valid numeric value. Performed By: #### 2 717572, 5997445, 72157558, 1906834, 1693221, 64226318, 9279793, 8081811 ####[facility] [address] [place] [address] Albumin [Mass/Vol] 4.6 g/dL Normal 3.3-5.0 [facility] Comment on above: Performed By: #### 2 037249, 0653630, 73389649, 9531542, 1414711, 34130192, 0953464, 4793058 ####[facility] [address] [place] [address] Albumin/Globulin (S) [Mass conc ratio] 1.5 Normal 1.1-2.2 [facility] Comment on above: Performed By: #### 2 886163, 8414735, 04137973, 8257214, 5485427, 61779868, 7657625, 3446707 ####[facility] [address] [place] [address] ALP [Catalytic activity/Vol] 41 Int._Unit/L Normal 21-98 [facility] Comment on above: Performed By: #### 2 691559, 8268883, 64109187, 8025125, 5885471, 40431684, 5252056, 6048269 ####[facility] [address] [place] [address] ALT No additional P-5'-P [Catalytic activity/Vol] 17 Int._Unit/L Normal 6-46 [facility] Comment on above: Performed By: #### 2 005596, 4801189, 36883170, 9712826, 5316140, 44239715, 6328740, 7104466 ####[address] [place] [address] AST [Catalytic activity/Vol] 17 Int._Unit/L Normal 5-43 [facility] Comment on above: Performed By: #### 2 805009, 1616292, 79672636, 5525347, 3874485, 45260082, 0976137, 8816071 ####[address] [place] [address] Bilirubin [Mass/Vol] 0.5 mg/dL Normal 0.0-1.1 [facility] Comment on above: Performed By: #### 2 478146, 5125443, 59919093, 0435727, 0978144, 13561958, 2489488, 9423014 ####[address] [place] [address] Globulin (S) [Mass/Vol] 3.1 g/dL Normal 1.4-4.[address] [facility] Comment on above: Performed By: #### 2 684856, 0633751, 66005896, 0146619, 8332458, 08400472, 3725157, 9651939 ####[facility] [address] [place] [address] Protein [Mass/Vol] 7.7 g/dL Normal 6.0-7.8 [facility] Comment on above: Performed By: #### 2 891707, 7466036, 10024120, 6714291, 8628391, 69748503, 2948563, 6187966 ####[facility] [address] [place] [address] Bilirubin.direct [Mass/Vol] mg/dL Normal 0.1-0.4 [facility] Comment on above: Performed By: #### 2 057263, [id number], [id number], [id number], [id number], [id number], 5638104, [id number] ####[facility] [address] [place] [address] Lipase Levelon 11-10-2022 Lipase [Catalytic activity/Vol] 28 U/L Normal 13-58 [facility] Comment on above: Performed By: #### 2 [id number], [id number], [id number], [id number], 5169045, [id number], [id number], [id number] ####[facility] [address] [place] [address] Progress Note-Nurseon 2022 Progress Note-Nurse Patient brought back to ED 11 at this time from the waiting room Normal [facility] SEROLOGYOrdered By: Brittni choudhury on 11-10-2022 HCG.beta subunit (U) [Moles/Vol] Negative Normal [facility] [place] Sero Troponin 0 Hr.on 11-10-2022 Troponin I.cardiac [Mass/Vol] ng/mL Low 10.10-27.10 [facility] Comment on above: Result Comment: The 95% CI (Confidence Interval) PPV (Positive Predictive Value) for myocardial infarction in females is 38 pg/mL, in males 51 pg/mL. The results should be used in conjunction with clinical conditions of myocardial infarction. (Access High Sensitivity Troponin I Instructions For Use, Richelle Omak, November 2017) Performed By: #### 2 [id number], [id number], [id number], 2738437, 8581936, [id number], 7821885, 5436242 ####[facility] [address] [place] [address] U BetaHcg Qualon 11-10-2022 HCG.beta subunit (U) [Moles/Vol] Negative Normal [facility] Comment on above: Performed By: #### 2 [id number] ####[address] [address] UA With Cult Reflexon 2022 Bilirubin Ql (U) Negative Normal Negative [facility] Comment on above: Performed By: #### 1 [id number] ####[address] [address] Clarity (U) CLEAR Normal Clear [facility] Comment on above: Performed By: #### 1 [id number] ####[address] [address] Color (U) YELLOW Normal Yellow [facility] Comment on above: Performed By: #### 1 [id number] ####[address] [address] Epithelial cells.squamous LM.HPF (Urine sed) [#/Area] 0-2 Normal 0-2 [facility] Comment on above: Performed By: #### 1 [id number] ####[address] [address] Glucose Test strip (U) [Mass/Vol] Negative Normal Negative [facility] Comment on above: Performed By: #### 1 [id number] ####[address] [address] Hemoglobin Ql (U) Negative Normal Negative [facility] Comment on above: Performed By: #### 1 [id number] ####[address] [address] Ketones (U) [Mass/Vol] Negative Normal Negative [facility] Comment on above: Performed By: #### 1 [id number] ####[address] [place] [address] [place].plasma/[place]. RBC (Bld) [Mass ratio] 0-3 Normal 0-3 [facility] Comment on above: Performed By: #### 1 [id number] ####[address] [address] Nitrite Ql (U) Negative Normal Negative [facility] Comment on above: Performed By: #### 1 [id number] ####[address] [address] pH (U) 6.0 [pH] Invalid Interpretation Code 5.0-9.0 [facility] Comment on above: Performed By: #### 1 0553858 ####[address] [address] Protein (U) [Mass/Vol] Negative Normal Negative [facility] Comment on above: Performed By: #### 1 [id number] ####[address] [address] Specific gravity (U) [Rel density] 1.010 Invalid Interpretation Code 1.005-1.030 [facility] Comment on above: Performed By: #### 1 [id number] ####[address] [address] Type of Urine collection method Clean Catch Normal [facility] Comment on above: Performed By: #### 1 [id number] ####[address] [address] Urobilinogen Qn (U) 0.2 {Elizabeth'U}/dL Normal 0.0-1.0 [facility] Comment on above: Performed By: #### 1 [id number] ####[address] [address] WBC Auto Ql (U) Negative Normal Negative [facility] Comment on above: Performed By: #### 1 [id number] ####[address] [place] [address] WBC LM.HPF (Urine sed) [#/Area] 0-5 Normal 0-5 [facility] Comment on above: Performed By: #### 1 [id number] ####[facility] [address] [place] [address] URINALYSISOrdered By: Brittni Wren on 11-10-2022 Bilirubin [...] PM) Normal Negative [facility] UA Auto SS [place].plasma/[place]. RBC (Bld) [Mass ratio] 0-3 /HPF Normal [...] [facility] UA Auto SS Urobilinogen Qn (U) 0.6567598 {Elizabeth'U}/dL Normal 0.0 - 1.0 EU/dL [facility] UA Auto SS WBC Auto Ql (U) Negative (11/10/22 5:44 PM) Normal Negative [facility] [place] UA Auto SS WBC LM.HPF (Urine sed) [#/Area] 0-5 /HPF Normal 0-5/HPF [facility] [place] UA Auto SS eGFRon 11-10-2022 GFR/1.73 sq M.predicted among non-blacks MDRD (S/P/Bld) [Vol rate/Area] 105 mL/min/1.73 m2 Normal >=59 [facility] Comment on above: Order Comment: Order added by Discern Expert. Result Comment: Roster Clerk crystal kidney disease could be indicated at eGFR's of less than 60 mL/min/1.73m2. Kidney failure is indicated at less than 15 mL/min/1.73m2. Performed By: #### 2 [id number], [id number], 60309057, 9840633, 4023561, 04238338, 7990650, 2750373 ####[facility] [address] [place] [address] Basophils Auto (Bld) [#/Vol] Ordered By: Phillip Shaw on 04-12-2022 Basophils (Bld) [#/Vol] 0.0 10*3/uL 0.0-0.2 [facility] Basophils/100 WBC Auto (Bld) Ordered By: Phillip Shaw on 04-12-2022 Basophils/100 WBC (Bld) 0.4 % . [facility] Creatinine and Glomerular fi ltration rate.predicted panel (S/P/Bld)Ordered By: Phillip Shaw on 04-12-2022 Creatinine [Mass/Vol] 0.72 mg/dL 0.44-1.03 [facility] Eosinophils Auto (Bld) [#/Vo l]Ordered By: Phillip Shaw on 04-12-2022 Eosinophils (Bld) [#/Vol] 0.0 10*3/uL 0.0-0.45 [facility] Eosinophils/100 WBC Auto (Bl d)Ordered By: Phillip Shaw on 04-12-2022 Eosinophils/100 WBC (Bld) 0.1 % . [facility] Erythrocyte distribution wid th Auto (RBC) [Ratio]Ordered By: Phillip Shaw on 04-12-2022 Erythrocyte distribution width (RBC) [Ratio] 15.1 % 11.9-15.3 [facility] Estimated glomerular filtrat ion rate (GFR) non- AmericanOrdered By: Phillip Shaw on 04-12-2022 GFR/1.73 sq M.predicted among non-blacks MDRD (S/P/Bld) [Vol rate/Area] > 60 mL/Min [facility] Hematocrit Auto (Bld) [Volum e fraction]Ordered By: Phillip Shaw on 04-12-2022 Hematocrit (Bld) [Volume fraction] 37.6 % 34.0-46.4 [facility] Hemoglobin [Mass/volume] in BloodOrdered By: Phillip Shaw on 04-12-2022 Hemoglobin (Bld) [Mass/Vol] 12.4 g/dL 11.8-15.4 [facility] Laboratory - Chemistry and C hemistry - challengeOrdered By: Phillip Shaw on 04-12-2022 Natriuretic peptide B (Bld) [Mass/Vol] 34.0 pg/mL 5-100 [facility] Leukocytes [#/volume] correc charli for nucleated erythrocytes in Blood by Automated counOrdered By: Phillip Shaw on 04-12-2022 WBC corrected for nucl RBC Auto (Bld) [#/Vol] 11.1 10*3/uL 3.8-11.6 [facility] Lymphocytes Auto (Bld) [#/Vo l]Ordered By: Phillip Shaw on 04-12-2022 Lymphocytes (Bld) [#/Vol] 1.0 10*3/uL 1.00-4.8 [facility] Lymphocytes/100 WBC Auto (Bl d)Ordered By: Phillip Shaw on 04-12-2022 Lymphocytes/100 WBC (Bld) 9.1 % . [facility] MCH Auto (RBC) [Entitic mass ]Ordered By: Phillip Shaw on 04-12-2022 MCH (RBC) [Entitic mass] 28.8 pg 24.7-34.3 [facility] MCHC Auto (RBC) [Mass/Vol]Or dered By: Phillip Shaw on 04-12-2022 MCHC (RBC) [Mass/Vol] 32.9 g/dL 32.0-35.[address] [facility] MCV Auto (RBC) [Entitic vol] Ordered By: Phillip Shaw on 04-12-2022 MCV (RBC) [Entitic vol] 87.5 fL 80-100 [facility] Monocyte distribution width [Entitic volume] in Blood by AutomatedOrdered By: Phillip Shaw on 04-12-2022 Monocyte distribution width Auto (Bld) [Entitic vol] 22.31 % 0.00-20.00 [facility] Comment on above: For adults in ED, MD W > 20.0 may be associated with a higher risk of sepsis during the first 12 hrs of hospital admission Monocytes Auto (Bld) [#/Vol] Ordered By: Phillip hSaw on 04-12-2022 Monocytes (Bld) [#/Vol] 1.1 10*3/uL 0.0-0.8 [facility] Monocytes/100 WBC Auto (Bld) Ordered By: Phillip Shaw on 04-12-2022 Monocytes/100 WBC (Bld) 10.3 % . [facility] Neutrophils Auto (Bld) [#/Vo l]Ordered By: Phillip Shaw on 04-12-2022 Neutrophils (Bld) [#/Vol] 8.9 10*3/uL 1.8-7.7 [facility] Neutrophils/100 WBC Auto (Bl d)Ordered By: Phillip Shaw on 04-12-2022 Neutrophils/100 WBC (Bld) 80.1 % . [facility] No Panel InformationOrdered By: Phillip Shaw on 04-12-2022 D-Dimer Quantitative (PE/DVT) < 200 ng/mL 0-243 [facility] Comment on above: The reference range [...] conditions. Estimated GFR () > 60 mL/Min [facility] Comment on above: GFR estimated refere nce range: According to KDOQI guidelines, <60 ml/min/1.73m2 is sufficient to diagnose a patient with chronic kidney disease. Pharmacy Creatinine Clearance (Chem 117.02 [facility] Nucleated erythrocytes [Pres ence] in Blood by Automated countOrdered By: Phillip Shaw on 04-12-2022 Nucleated RBC Auto Ql (Bld) 0.1 /100{WBC} 0-0.5 [facility] Platelet mean volume Auto (B ld) [Entitic vol]Ordered By: Phillip Shaw on 04-12-2022 Platelet mean volume (Bld) [Entitic vol] 11.4 fL 6.3-10.7 [facility] Platelets Auto (Bld) [#/Vol] Ordered By: Phillip Shaw on 04-12-2022 Platelets (Bld) [#/Vol] 181 10*3/uL 150-450 [facility] RBC Auto (Bld) [#/Vol]Ordere d By: Phillip Shaw on 04-12-2022 RBC (Bld) [#/Vol] 4.30 10*6/uL 3.60-5.00 [facility] Serum or plasma anion gap de terminationOrdered By: Phillip Shaw on 04-12-2022 Anion gap [Moles/Vol] 13.1 mmol/L 6.0-15.0 [facility] Serum or plasma calcium oliver urement (mass/volume)Ordered By: Phillip Shaw on 04-12-2022 Calcium [Mass/Vol] 8.9 mg/dL 8.2-10.2 [facility] Serum or plasma chloride jeanne surement (moles/volume)Ordered By: Phillip Shaw on 04-12-2022 Chloride [Moles/Vol] 101 mmol/L 95-114 [facility] Serum or plasma glucose oliver urement (mass/volume)Ordered By: Phillip Shaw on 04-12-2022 Glucose [Mass/Vol] 108 mg/dL 70-100 [facility] Comment on above: ADA recommended refe rence rangeRandom Glucose Reference Range is dependent on time and content of last meal. Glucose of more than 200 mg/dL in a nonstressed, ambulatory subject supports the diagnosis of Diabetes Mellitus. Serum or plasma potassium me asurement (moles/volume)Ordered By: Phillip Shaw on 04-12-2022 Potassium [Moles/Vol] 3.8 mmol/L 3.5-5.1 [facility] Serum or plasma sodium measu rement (moles/volume)Ordered By: Pihllip Shaw on 04-12-2022 Sodium [Moles/Vol] 133 mmol/L 136-146 [facility] Serum or plasma total carbon dioxide measurement (moles/volume)Ordered By: Phillip Shaw on 04-12-2022 CO2 [Moles/Vol] 22.7 mmol/L 22.0-30.[address] [facility] Serum or plasma urea nitroge n measurement (mass/volume)Ordered By: Phillip Shaw on 04-12-2022 Urea nitrogen [Mass/Vol] 7 mg/dL 9-23 [facility] Troponin I.cardiac [Mass/vol ume] in Serum or Plasma by High sensitivity methodOrdered By: Phillip Shaw on 04-12-2022 Troponin I.cardiac High sensitivity method [Mass/Vol] 5 pg/mL 0-15 [facility] WBC Auto (Bld) [#/Vol]Ordere d By: Phillip Shaw on 04-12-2022 WBC (Bld) [#/Vol] 11.1 10*3/uL 3.8-11.6 [facility] COVID CepheidOrdered By: Twyla Rea on 04-07-2022 SARS-CoV-2 (COVID-19) Ab IA Ql Negative Negative [facility] Comment on above: This is a duplicate Cepheid Xpert Xpress CoV-2/Flu/RSV Plus RNA by RT-PCR result to be used for statistical tracking purpose only. SARS-CoV-2 (COVID-19) RNA BARBI+probe Ql (Unsp spec) [facility] XR Spine Lumbar 4+ Views*on 08-21-2021 XR [...] signed by JOVITA MA on 08/21/2021 1223 [facility] HNO ID: [id number] Author: RT Kristin(R) Service: Radiology Author Type: Facilities Coordinator Type: Allied Health Filed: 10/04/2020 10:48 AM [...] RT Kristin(R) October 04, 2020 10:26 AM [facility] ALLIED HEALTH HNO ID: [id number] Author: RT Kristin(R) Service: Radiology Author Type: Facilities Coordinator Type: Allied Health Filed: 10/04/2020 9:27 AM Note Text: Waiting for HCG results to come back before performing exam Bing Killian(R) [facility] ED NOTEon 10-04-2020 ED NOTE HNO ID: [id number] Author: Samara Orozco RN Service: ? Author [...] ambulated with steady gait out of ED. [facility] ED NOTE HNO ID: [id number] Author: Samara Orozco RN Service: ? Author Type: Registered Nurse Type: ED Notes Filed: 10/04/2020 11:38 AM Note Text: Pt resting comfortably in bed. Comfort measures offered. Call light within reach. No distress noted at this time. Safety maintained and will continue to monitor patient. [facility] ED NOTE HNO ID: [id number] Author: Samara Orozco RN Service: ? Author Type: Registered Nurse Type: ED Notes Filed: 10/04/2020 11:38 AM Note Text: Pt resting comfortably in bed. Comfort measures offered. Call light within reach. No distress noted at this time. Safety maintained and will continue to monitor patient. [facility] ED NOTE HNO ID: [id number] Author: Akin Mcclain RN Service: ? Author Type: Registered Nurse Type: ED Notes Filed: 10/04/2020 9:21 AM Note Text: PO fluids provided [facility] ED NOTE HNO ID: [id number] Author: Akin Mcclain RN Service: ? Author [...] head or LOC. +MSP; gate is steady. [facility] ED PROV NOTEon 10-04-2020 ED PROV NOTE HNO ID: [id number] Author: Al Castellanos MD Service: Emergency Medicine [...] IV drug use. History provided by: Patient drafter directional survey used: No History reviewed. No pertinent past [...] at 10/05/19 (more content not included)... Normal [facility] HCG Qual, Urineon 10-04-2020 Beta HCG ( test) Ql (U) Negative Normal Negative [facility] Comment on above: Performed By: #### U HCG #### [facility] [address] [place] [address] XR FEMUR 2V AP/LAT RTon 09-11 XR [...] No acute bone or joint space abnormality. Spanish Instructor: PSCB Transcribe Date/Time: Oct 04 2020 10:50A Dictated by : Anca MACKENZIE MD This examination was interpreted and the report reviewed and electronically signed by: Anca MACKENZIE MD on Oct 04 2020 10:55AM EST [id number] [facility] XR LUMBAR 3V AP/LAT/L5-S1on 10-04-2020 XR LUMBAR [...] vertebrae. Anatomic Variant: Transitional L5 vertebral body. Spanish Instructor: PSCB Transcribe Date/Time: Oct 04 2020 10:56A Dictated by : Anca MACKENZIE MD This examination was interpreted and the report reviewed and electronically signed by: Anca MACKENZIE MD on Oct 04 2020 10:58AM EST [id number] [facility] XR PELVIS 1V APon 10-04-2020 XR PELVIS [...] No acute bone or joint space abnormality. Spanish Instructor: ROSA Transcribe Date/Time: Oct 04 2020 10:50A Dictated by : Anca MACKENZIE MD This examination was interpreted and the report reviewed and electronically signed by: Anca MACKENZIE MD on Oct 04 2020 10:55AM EST [id number] N Normal [facility] CHEST 1 VIEWon 10-01-2020 CHEST 1 VIEW Patient Name: MAURY COLLAZO STUDY: CHEST 1 VIEW; 10/01/2020 7:54 am INDICATION: cough. COMPARISON: None. ACCESSION NUMBER(S): [id number] ORDERING CLINICIAN: ERON JONES TECHNIQUE: A portable [...] Electronically signed by: LARS DAMICO MD Normal [facility] CORONAVIRUS 2019 BY PCRon SARS-CoV-2 (COVID-19) RNA BARBI+probe Ql (Unsp spec) Not detected Normal Not Detected [facility] Comment on above: Result Comment: . This assay is designed to detect the RdRp gene of SARS-CoV-2 via nucleic acid amplification. A Not Detected result does not preclude COVID-19 infection since the adequacy of sample collection and/or low viral burden may result in presence of viral nucleic acids below the clinical sensitivity of this test method. Fact sheet for providers: www.fda.gov/media/628032/download Fact sheet for patients: www.fda.gov/media/830696/download This test has received FDA Emergency Use Authorization (EUA) and has been verified by [facility] ([facility]). This test is only authorized for the duration of time that circumstances exist to justify the authorization of the emergency use of in vitro diagnostic tests for the detection of SARS-CoV-2 virus and/or diagnosis of COVID-19 infection under section 564(b)(1) of the Act, 21 U.S.C. 360bbb-3(b)(1), unless the authorization is terminated or revoked sooner. [facility] is certified under CLIA-88 as qualified to perform high complexity testing. Testing is performed in the [facility] laboratory located at [address] [place] [id number]. Performed By: #### C OV19 #### [address] [id number] DATE OF SYMPTOM ONSET [YYYYMMDD]? [id number] Normal [facility] Comment on above: Performed By: #### C OV19 #### [address] [id number] Lab Specimen Source Nasal, Nasopharyngeal Normal [facility] Comment on above: Performed By: #### C OV19 #### [address] [id number] Covid 19 Resultson 1 SARS-CoV-2 (COVID-19) RNA [...] You may also be contacted by the [facility] to see if any of [...] or Naproxen (Aleve) can also be used. Putn-gwm-chrgqex cough and cold medicines can be used according to the instructions on the package. Some egah-gxe-gwqayiu medicines also contain acetaminophen. Make sure you [...] water are not available, use alcohol-based hand group home paraprofessional. Avoid touching your eyes, nose, and mouth [...] 24 reginald (more content not included)... Normal [facility] Provider Note - ED v2on 09-11 [...] As Needed SIGNIFICANT EVENTS: No documented data. SERVER SOFTWARE ENGINEER: Is : no(1) Is : no(1) REVIEW [...] SIGNS: T PRBP SpO2O2(LPM) %FiO2 Method 01-Oct-2020 07:27:[id number] 98 room air, no respiratory support PHYSICAL [...] not at (more content not included)... Normal [facility] Risk Screen - Adult Emergenc yon [...] demonstration; verbal instruction Cultural Considerationsnone Developmental Considerationsnone Moravian Considerationsnone Learning Assessment (Other Learner): Learning Assessment [...] an injured patient at a Trauma Center ([facility]/[place]/[facility]/[place]): no Electronic Signatures: Hailey Shepard (STAFF N) (Signed 01-Oct-2020 07:27) Authored: Preferred Language, Advanced Directives, Family Violence Adult, Learning Assessment (Patient), Learning Assessment (Other Learner), Pressure Injury/TB/Substance, Pressure Injury, CAGE Last Updated: 01-Oct-2020 07:27 by Hailey Shepard (STAFF N) Normal [facility] Triage - EDon 10-01-2020 Triage - [...] Accompanied By: self Language: Spoken Language Preferred: Bangladeshi Reading Language Preferred: Bangladeshi Casino Gaming Inspector Requested: no hazardous material specialist was requested MDRO: History of MDRO: no [...] 07:32 by Hailey Shepard (STAFF N) Normal [facility] CBC AUTO DIFFon 09-10-2018 Basophils #/vol (Bld) 0.0 103/ul Normal 0.0-0.1 [facility] Comment on above: Performed By: #### C BC #### [facility] [address] [address] Dianne Mame Basophils/100 WBC (Bld) 0.4 % Normal 0.2-2.0 [facility] Comment on above: Performed By: #### C BC #### [facility] [address] [place] [address] Dianne Mame Eosinophils #/vol (Bld) 0.0 103/ul Normal 0.0-0.7 [facility] Comment on above: Performed By: #### C BC #### [facility] [address] [place] [address] Dianne Timmonsen Eosinophils/100 WBC (Bld) 0.4 % Critically low 0.9-7.0 [facility] Comment on above: Performed By: #### C BC #### [facility] [address] [place] [address] Dianne Vilchis Erythrocyte distribution width Ratio (RBC) 12.9 % Normal 11.0-15.0 [facility] Comment on above: Performed By: #### C BC #### [facility] [address] [place] [address] Dianne Vilchis Hematocrit Volume Fraction (Bld) 38.9 % Normal 36.0-48.0 [facility] Comment on above: Performed By: #### C BC #### [facility] [address] [place] [address] Dianne Vilchis Hemoglobin mass conc (Bld) 13.4 g/dL Normal 12.0-16.0 [facility] Comment on above: Performed By: #### C BC #### [facility] [address] [place] [address] Dianne Vilchis IG # 0.03 10e3/ul Normal 0.00-0.03 [facility] Comment on above: Performed By: #### C BC #### [facility] [address] [id number] Dianne Mame IG % 0.3 % Normal 0.0-0.5 [facility] Comment on above: Performed By: #### C BC #### [facility] [address] [place] [address] Dianne Mame Lymphocytes #/vol (Bld) 2.1 103/ul Normal 1.2-3.8 [facility] Comment on above: Performed By: #### C BC #### [facility] [address] [place] [address] Dianne Mame Lymphocytes/100 WBC (Bld) 20.3 % Critically low 20.5-60.0 [facility] Comment on above: Performed By: #### C BC #### [facility] [address] [place] [address] Dianne Vilchis MANUAL DIFF REQ NO Normal [facility] Comment on above: Performed By: #### C BC #### [facility] [address] [place], [place] [id number] Dianneisidro Vilchis MCH Entitic mass (RBC) 30.4 pg Normal 26.7-34.0 [facility] Comment on above: Performed By: #### C BC #### [facility] [address] [place] [address] Dianne Vilchis MCHC mass conc (RBC) 34.4 g/dL Normal 29.9-35.2 [facility] Comment on above: Performed By: #### C BC #### [facility] [address] [place], [place] [id number] Dianneisidro Vilchis MCV Entitic volume (RBC) 88.2 fL Normal 81.0-99.0 [facility] Comment on above: Performed By: #### C BC #### [facility] [address] [place] [address] Dianne Mame Monocytes #/vol (Bld) 0.6 103/ul Normal 0.3-0.8 [facility] Comment on above: Performed By: #### C BC #### [facility] [address] [place], [place] [address] Dianne Mame Monocytes/100 WBC (Bld) 5.7 % Normal 1.7-12.0 [facility] Comment on above: Performed By: #### C BC #### [facility] [address] [place], [place] [address] Dianne Mame Neutrophils #/vol (Bld) 7.4 103/ul Critically high 1.4-6.5 [facility] Comment on above: Performed By: #### C BC #### [facility] [address] [place], [place] [address] Dianne Mame Neutrophils/100 WBC (Bld) 72.9 % Normal 43.0-75.0 [facility] Comment on above: Performed By: #### C BC #### [facility] [address] [place], [place] [address] Dianne Mame Platelet mean volume Entitic volume (Bld) 12.5 fL Normal 9.5-13.5 [facility] Comment on above: Performed By: #### C BC #### [facility] [address] [place], [place] [address] Dianne Mame Platelets #/vol (Bld) 192 103/ul Normal 150-450 [facility] Comment on above: Performed By: #### C BC #### [facility] [address] [place], [place] [address] Dianne Mame RBC #/vol (Bld) 4.41 106/ul Normal 4.20-5.40 [facility] [facility] Comment on above: Performed By: #### C BC #### [facility] [address] [place], [place] [address] Dianne Mame WBC #/vol (Bld) 10.1 103/ul Normal 4.0-11.0 [facility] Comment on above: Performed By: #### C BC #### [facility] [address], [place] [address] Dianne Mame ER URINE PROFILEon 9 Bilirubin mass conc SMALL Normal NEGATIVE [facility] Comment on above: Performed By: #### E RUR #### [facility] [address] [place] [address] Dianne Mame BLOOD Negative Normal NEGATIVE [facility] Comment on above: Performed By: #### E RUR #### [facility] [address] [place], [place] [id number] Dianneisidro Vilchis Clarity Nom (U) CLEAR Normal [facility] [place] Comment on above: Performed By: #### E RUR #### [facility] [address] [place] [address] Dianne Mame Color Nom (U) YELLOW Normal YELLOW The [facility] Comment on above: Performed By: #### E RUR #### [facility] [address] [place], [place] [id number] Dianneisidro Vilchis ERUAHD A micrscopic examination will be performed if indicated. Normal [facility] Comment on above: Performed By: #### E RUR #### [facility] [address] [place] [address] Dianne Mame Glucose mass conc Negative Normal NEGATIVE [facility] Comment on above: Performed By: #### E RUR #### [facility] [address] [place] [address] Dianne Mame Ketones Ql (U) >=80 Normal NEGATIVE The [facility] Comment on above: Performed By: #### E RUR #### [facility] [address] [place] [address] Dianne Mame Nitrite Ql (U) Negative Normal NEGATIVE The [facility] Comment on above: Performed By: #### E RUR #### [facility] [address] [place] [address] Dianne Mame pH (Bld) 6.0 Normal 5-9 [facility] Comment on above: Performed By: #### E RUR #### [facility] [address] [place] [address] Dianne Mame Protein mass conc (U) TRACE Normal [facility] Comment on above: Performed By: #### E RUR #### [facility] [address] [place] [address] Dianne Mame SPEC GRAVITY 1.025 Normal 1.005-<=1.02 5 [facility] Comment on above: Performed By: #### E RUR #### [facility] [address] [place], [place] [id number] Dianne Vilchis UR MICRO IND NOT INDICATED Normal [facility] Comment on above: Performed By: #### E RUR #### [facility] [address] [place], [place] [id number] Dianne Vilchis Urobilinogen Qn (U) 0.2 EU/dl Normal [facility] Comment on above: Performed By: #### E RUR #### [facility] [address] [place] [address] Dianne Vilchis WBC #/vol (Bld) Negative Normal NEGATIVE [facility] Comment on above: Performed By: #### E RUR #### [facility] [address] [place] [address] Dianne Vilchis PROF 14(COMP METB)on 019 Albumin mass conc 3.8 g/dL Normal 3.5-5.0 [facility] Comment on above: Performed By: #### C MP #### [facility] [address] [place], [place] [id number] Dianne Vilchis Albumin/Globulin mass ratio 1.0 {ratio} Normal [facility] Comment on above: Performed By: #### C MP #### [facility] [address] [place] [address] Dianneisidro Vilchis ALP enzyme act/vol 53 U/L Normal 38-126 [facility] Comment on above: Performed By: #### C MP #### [facility] [address] [place], [place] [id number] Dianne Vilchis ALT enzyme act/vol 25 U/L Normal 9-52 [facility] Comment on above: Performed By: #### C MP #### [facility] [address] [place] [address] Dianne Vilchis Anion gap molar conc 13.4 mmol/L Normal [facility] Comment on above: Performed By: #### C MP #### [facility] [address] [place], [place] [id number] Dianne Vilchis AST enzyme act/vol 17 U/L Normal 14-36 [facility] Comment on above: Performed By: #### C MP #### [facility] [address] [place] [address] Dianne Vilchis Bilirubin Ql (U) 0.5 mg/dL Normal 0.2-1.3 [facility] Comment on above: Performed By: #### C MP #### [facility] [address] [address] Dianne Mame Calcium mass conc 9.6 mg/dL Normal 8.4-10.2 [facility] Comment on above: Performed By: #### C MP #### [facility] [address] [place] [address] Dianne Timmonsen Chloride molar conc 101 mmol/L Normal 98-107 [facility] Comment on above: Performed By: #### C MP #### [facility] [address] [place] [address] Dianneisidro Vilchis CO2 molar conc 24.1 mmol/L Normal 22.0-30.0 [facility] Comment on above: Performed By: #### C MP #### [facility] [address] [place] [address] Dianne Mame Creatinine mass conc 0.64 mg/dL Normal 0.52-1.04 [facility] Comment on above: Performed By: #### C MP #### [facility] [address] [place] [address] Dianne Mame EGFR-AF PORTUGUESE >60 Normal >=60 [facility] Comment on above: Performed By: #### C MP #### [facility] [address] [place] [address] Dianne Mame EGFR-NON AF PORTUGUESE >60 Normal >=60 [facility] Comment on above: Performed By: #### C MP #### [facility] [address] [place] [address] Dianne Mame Globulin mass conc (S) 3.9 g/dL Normal [facility] Comment on above: Performed By: #### C MP #### [facility] [address] [place], [place] [address] Dianne Timmonsen Glucose mass conc 76 mg/dL Normal 74-106 [facility] Comment on above: Performed By: #### C MP #### [facility] [address] [place], [place] [address] Dianne Vilchis Potassium molar conc 3.5 mmol/L Normal 3.4-5.0 [facility] Comment on above: Performed By: #### C MP #### [facility] [address] [place] [id number] Dianne Mame Protein mass conc 7.7 g/dL Normal 6.1-8.2 [facility] Comment on above: Performed By: #### C MP #### [facility] [address] [place] [id number] Dianne Timmonsen Sodium molar conc 135 mmol/L Critically low 137-145 [facility] Comment on above: Performed By: #### C MP #### [facility] [address] [id number] Dianneisidro Timmonsen Urea nitrogen mass conc 9.0 mg/dL Normal 6.4-19.3 [facility] Comment on above: Performed By: #### C MP #### [facility] [address] [id number] Dianne Mame Urea nitrogen/Creatinine mass ratio 14.1 mg/mg Normal [facility] Comment on above: Performed By: #### C MP #### [facility] [address] [place], [place] [address] Dianne Timmonsen Vital Signs Date Time Vital Sign Value Performing Clinician Jasoni lity 01-06-2024 19:53-0400 Body height 157.48 cm MD Miracle Padilla Work Phone: [facility] 01-06-2024 19:53-0400 Body temperature 98 [degF] MD Miracle Padilla Work Phone: [facility] 01-06-2024 19:53-0400 Body weight 69.1 kg MD Miracle Padilal Work Phone: [facility] 01-06-2024 19:53-0400 Diastolic blood pressure 71 mm[Hg] MD Miracle Padilla Work Phone: [facility] 01-06-2024 19:53-0400 Heart rate 90 /min MD Miracle Padilla Work Phone: [facility] 01-06-2024 19:53-0400 Respiratory rate 16 /min MD Miracle Padilla Work Phone: [facility] 01-06-2024 19:53-0400 SaO2% (BldA) [Mass fraction] 98 % MD Miracle Padilla Work Phone: [facility] 01-06-2024 19:53-0400 Systolic blood pressure 125 mm[Hg] MD Miracle Padilla Work Phone: [facility] 05-27-2023 11:20-0500 Body temperature 97.52 [degF] [facility] 05-27-2023 11:20-0500 Diastolic blood pressure 84 mm[Hg] [facility] 05-27-2023 11:20-0500 Heart rate 61 /min [facility] 05-27-2023 11:20-0500 Respiratory rate 20 /min [facility] 05-27-2023 11:20-0500 SaO2% (BldA) [Mass fraction] 99 % [facility] 05-27-2023 11:20-0500 Systolic blood pressure 124 mm[Hg] [facility] 05-26-2023 16:14-0500 Body mass index (BMI) [Ratio] 21.86 kg/m2 Bella Camara MD Work Phone: [facility] 05-26-2023 16:14-0500 Body temperature 98.6 [degF] Bella Camara MD Work Phone: [facility] 05-26-2023 16:14-0500 Body weight 67.13 kg Bella Camara MD Work Phone: [facility] 05-26-2023 16:14-0500 Diastolic blood pressure 78 mm[Hg] Bella Camara MD Work Phone: [facility] 05-26-2023 16:14-0500 Heart rate 71 /min Bella Camara MD Work Phone: [facility] 05-26-2023 16:14-0500 SaO2% (BldA) [Mass fraction] 100 % Bella Camara MD Work Phone: [facility] 05-26-2023 16:14-0500 Systolic blood pressure 118 mm[Hg] Bella Camara MD Work Phone: [facility] 05-24-2023 15:36-0500 Body height 175.3 cm Elisabet Giron BED OPERATOR [facility] 05-24-2023 15:36-0500 Body mass index (BMI) [Ratio] 21.86 kg/m2 Elisabet Peterr BED OPERATOR [facility] 05-24-2023 15:36-0500 Body temperature 98.4 [degF] Elisabetal Peterr BED OPERATOR [facility] 05-24-2023 15:36-0500 Body weight 67.13 kg Elisabet Peterr BED OPERATOR [facility] 05-24-2023 15:36-0500 Diastolic blood pressure 72 mm[Hg] Elisabet Hernandeziller BED OPERATOR [facility] 05-24-2023 15:36-0500 Heart rate 109 /min Elisabet Peterr BED OPERATOR [facility] 05-24-2023 15:36-0500 SaO2% (BldA) [Mass fraction] 99 % Elisabet Peterr BED OPERATOR [facility] 05-24-2023 15:36-0500 Systolic blood pressure 112 mm[Hg] Elisabet Hernandeziller BED OPERATOR [facility] 05-19-2023 14:22-0500 Body height 175.3 cm [facility] Work Phone: [facility] 05-19-2023 14:22-0500 Body mass index (BMI) [Ratio] 21.71 kg/m2 [facility] Work Phone: [facility] 05-19-2023 14:22-0500 Body temperature 97.59 [degF] Shala Conn PA Work Phone: [facility] 05-19-2023 14:22-0500 Body weight 66.68 kg Shala Crab [place]chard PA Work Phone: [facility] 05-17-2023 15:37-0500 Body height 175.3 cm Miracle Padilla MD Work Phone: [facility] 05-17-2023 15:37-0500 Body mass index (BMI) [Ratio] 21.56 kg/m2 Miracle Padilla MD Work Phone: [facility] 05-17-2023 15:37-0500 Body weight 66.22 kg Miracle Padilla MD Work Phone: [facility] 05-17-2023 15:37-0500 Diastolic blood pressure 70 mm[Hg] Miracle Padilla MD Work Phone: [facility] 05-17-2023 15:37-0500 Heart rate 71 /min Miracle Padilla MD Work Phone: [facility] 05-17-2023 15:37-0500 SaO2% (BldA) [Mass fraction] 98 % Miracle Padilla MD Work Phone: [facility] 05-17-2023 15:37-0500 Systolic blood pressure 112 mm[Hg] Miracle Padilla MD Work Phone: [facility] 05-12-2023 11:26-0500 Body height 175.3 cm Miracle Padilla MD Work Phone: [facility] 05-12-2023 11:26-0500 Body mass index (BMI) [Ratio] 21.71 kg/m2 Miracle Padilla MD Work Phone: [facility] 05-12-2023 11:26-0500 Body temperature 98.01 [degF] Miracle Padilla MD Work Phone: [facility] 05-12-2023 11:26-0500 Body weight 66.68 kg Miracle Padilla MD Work Phone: [facility] 05-12-2023 11:26-0500 Diastolic blood pressure 68 mm[Hg] Miracle Padilla MD Work Phone: [facility] 05-12-2023 11:26-0500 Heart rate 65 /min Miracle Padilla MD Work Phone: [facility] 05-12-2023 11:26-0500 SaO2% (BldA) [Mass fraction] 99 % Miracle Padilla MD Work Phone: [facility] 05-12-2023 11:26-0500 Systolic blood pressure 106 mm[Hg] Miracle Padilla MD Work Phone: [facility] 11-10-2022 19:03-0400 Diastolic blood pressure 89 mm[Hg] [facility] 11-10-2022 19:03-0400 Heart rate 53 /min [facility] 11-10-2022 19:03-0400 Mean blood pressure 99 mm[Hg] [facility] 11-10-2022 19:03-0400 Respiratory rate 16 /min [facility] 11-10-2022 19:03-0400 SaO2% (BldA) [Mass fraction] 99 % [facility] 11-10-2022 19:03-0400 Systolic blood pressure 120 mm[Hg] [facility] 11-10-2022 18:15-0400 Diastolic blood pressure 83 mm[Hg] [facility] 11-10-2022 18:15-0400 Heart rate 52 /min [facility] 11-10-2022 18:15-0400 Mean blood pressure 96 mm[Hg] [facility] 11-10-2022 18:15-0400 Respiratory rate 16 /min [facility] 11-10-2022 18:15-0400 SaO2% (BldA) [Mass fraction] 100 % [facility] 11-10-2022 18:15-0400 Systolic blood pressure 122 mm[Hg] [facility] 11-10-2022 17:16-0400 Diastolic blood pressure 80 mm[Hg] [facility] 11-10-2022 17:16-0400 Heart rate 57 /min [facility] 11-10-2022 17:16-0400 Mean blood pressure 93 mm[Hg] [facility] 11-10-2022 17:16-0400 Respiratory rate 16 /min [facility] 11-10-2022 17:16-0400 SaO2% (BldA) [Mass fraction] 100 % [facility] 11-10-2022 17:16-0400 Systolic blood pressure 119 mm[Hg] [facility] 11-10-2022 17:10-0400 Hourly Rounding [facility] 11-10-2022 17:10-0400 Promise to Return [facility] 11-10-2022 16:06-0400 Body temperature 97.88 [degF] [facility] 11-10-2022 16:06-0400 Heart rate 66 /min [facility] 11-10-2022 16:06-0400 Respiratory rate 16 /min [facility] 04-13-2022 00:12-0500 Diastolic blood pressure 61 mm[Hg] DO Phillip Petznick Work Phone: [facility] 04-13-2022 00:12-0500 Heart rate 75 /min DO Phillip Petznick Work Phone: [facility] 04-13-2022 00:12-0500 Respiratory rate 18 /min DO Phillip Petznick Work Phone: [facility] 04-13-2022 00:12-0500 SaO2% (BldA) [Mass fraction] 98 % DO Phillip Petznick Work Phone: 7(953)791-652944 [place] [address] 04-13-2022 00:12-0500 Systolic blood pressure 120 mm[Hg] DO Phillip Petznick Work Phone: 1(606)215-040572 [address] 04-12-2022 22:49-0500 Body height 175.26 cm DO Phillip Petznick Work Phone: 9(088)279-962972 [address] 04-12-2022 22:49-0500 Body temperature 101.4 [degF] DO Phillip Petznick Work Phone: 6(249)414-491972 [address] 04-12-2022 22:49-0500 Body weight 61 kg DO Phillip Petznick Work Phone: 2(965)989-513576 [place] [address] 04-07-2022 23:14-0500 Body height 175.26 cm DO Phillip Petznick Work Phone: 2(605)156-414776 [place] [address] 04-07-2022 23:14-0500 Body temperature 98.7 [degF] DO Phillip Petznick Work Phone: 8(608)553-794172 [address] 04-07-2022 23:14-0500 Body weight 69 kg DO Phillip Petznick Work Phone: 1(233)187-209476 [place] [address] 04-07-2022 23:14-0500 Diastolic blood pressure 67 mm[Hg] DO Phillip Petznick Work Phone: 9(577)938-805944 [place] [address] 04-07-2022 23:14-0500 Heart rate 110 /min DO Phillip Petznick Work Phone: 8(915)581-326544 [place] [address] 04-07-2022 23:14-0500 Respiratory rate 16 /min DO Phillip Petznick Work Phone: 5(450)922-339976 [place] [address] 04-07-2022 23:14-0500 SaO2% (BldA) [Mass fraction] 99 % DO Phillip Petznick Work Phone: 4(697)960-030472 [address] 04-07-2022 23:14-0500 Systolic blood pressure 112 mm[Hg] DO Phillip Petznick Work Phone: [facility] Encounters Encounter Date Encounter Type Care Provider Facility Start: 05-24-2024 End: 05-25-2024 Clinisync Result Encounter Marilyn Foleyerly BED OPERATOR Work Phone: [facility] Unsolicited Start: 05-24-2024 End: 05-25-2024 Clinisync Result Encounter Marilyn Smith BED OPERATOR Work Phone: [facility] Unsolicited Start: 01-07-2024 End: 01-07-2024 Telephone encounter Bella Camara MD Work Phone: [facility] Comment on above: ER Follow-up Start: 01-06-2024 End: 01-06-2024 Emergency department patient visit MD Miracle Padilla Work Phone: [facility] Work Phone: Start: 01-05-2024 End: 01-05-2024 [...] Start: 10-07-2023 End: 10-07-2023 ambulatory ASHLIE CRANE [place] [place] Start: 10-07-2023 End: 10-07-2023 Patient encounter procedure ASHLIE CRANE [facility] Start: 09-30-2023 End: 09-30-2023 ambulatory ABIGAIL TREJO [...] 05-27-2023 End: 05-27-2023 Emergency department patient visit [facility] Start: 05-26-2023 End: 05-26-2023 Patient encounter procedure [...] 05-24-2023 Patient encounter procedure Elisabet A Donnamiller BED OPERATOR [facility] Comment on above: Nasal injury, initia l encounter (Primary Dx); Generalized headache; BMI 21.0-21.9, adult Start: 05-24-2023 End: 05-24-2023 ambulatory ELIASBET A DONNAMILLER Not Available Start: 05-24-2023 Bamboo flowsheet Elisabet grajedar BED OPERATOR [facility] Start: 05-24-2023 Bamboo flowsheet Elisabet coburn BED OPERATOR [facility] Start: 05-19-2023 End: 05-19-2023 [...] Start: 03-26-2023 End: 03-26-2023 ambulatory Grabiel Luna Facility:[facility] Start: 03-17-2023 End: 03-17-2023 ambulatory BELLA M HOA Not Available Start: 03-02-2023 End: 03-02-2023 ambulatory ELISABET GIRON Not Available Start: 02-26-2023 End: 02-26-2023 ambulatory GRAZYNA GONZALEZ Not Available Start: 11-10-2022 End: 11-10-2022 Emergency department patient visit Michael Hannah [facility] Start: 04-12-2022 End: 04-13-2022 Emergency department patient visit DO Phillip Tripp Work Phone: [facility] Work Phone: Start: 04-07-2022 End: 04-08-2022 Emergency department patient visit DO Phillip Tripp Work Phone: [facility] Work Phone: Start: 09-10-2018 End: 09-10-2018 Patient encounter procedure [facility] Facility: Procedures Date Procedure Procedure Detail Performing Clinician Start: 05-24-2024 HEPATITIS B SURF AB QUANT Marilyn Smith BED OPERATOR Work Phone: Start: 05-24-2024 MEASLES/MUMPS/RUBELL A IMMUNITY Marilyn Smith BED OPERATOR Work Phone: Start: 05-24-2024 VARICELLA-ZOSTER V AB, IGG Marilyn Smith BED OPERATOR Work Phone: Start: 05-19-2023 End: 05-19-2023 Radex spine lumbosacral minimum 4 views Shala TOPETE Work Phone: Start: 04-07-2022 SARS-CoV-2, Influenz a & RSV (PCR) DO Phillip Englanddutch Work Phone: Plan of Treatment Date Care Activity Detail Author Start: 02-15-2024 End: 02-15-2024 Patient encounter procedure 02/15/2024 8:00 AM EST Office Visit [facility] [address] [place] [phone] Miracle Padilla MD [address] [place] [address] [facility] Start: 01-18-2024 End: 01-18-2024 Patient encounter procedure 01/18/2024 1:30 PM EDT Office Visit [facility] [address] [place] [phone] Miracle Padilla MD [address] [place] [address] [facility] Start: 12-12-2023 Influenza vaccination Influenz a Vaccine (#1) [facility] Start: 06-11-2023 End: 06-11-2023 ambulatory 06/11/2023 3:30 PM EST Treatment [facility] [address] [place] [phone] Shelly Scott, PT [address] [facility] [address] [facility] Start: 06-04-2023 End: 06-04-2023 ambulatory 06/04/2023 4:15 PM EST Treatment [facility] [address] [place] [phone] Shelly Scott, PT [address] [address] [facility] Start: 05-25-2023 End: 05-25-2023 ambulatory [facility] Comment on above: It band syndrome, ri ght; Trochanteric bursitis of right hip Start: 05-24-2023 End: 05-24-2023 Patient encounter procedure 05/24/2023 3:30 PM EST Office Visit [facility] [place] [address] [place] [address] Elisabet Giron NP Arrived [facility] Comment on above: Arrived Start: 04-12-2022 Plain chest X-ray XR chest 1V portab le [facility] Start: 04-12-2022 XR Chest Single view [facility] Patient Education [facility] Work Phone: Patient referral [facility] Work Phone: Immunizations Immunization Date Immunization Notes Care Provider Paz castanon 02-19-2023 influenza, injectabl e, quadrivalent, contains preservative [facility] Work Phone: [facility] 02-19-2023 influenza virus vaccine, unspecified formulation Miracle Padilla MD Work Phone: [facility] 01-15-2020 influenza, injectabl e, quadrivalent, preservative free [facility] Work Phone: [facility] 01-26-2019 influenza, injectabl e, quadrivalent, preservative free [facility] Work Phone: [facility] 01-26-2019 tetanus toxoid, redu baltazar diphtheria toxoid, and acellular pertussis vaccine, adsorbed [facility] Work Phone: [facility] 06-21-2018 tetanus toxoid, redu baltazar diphtheria toxoid, and acellular pertussis vaccine, adsorbed [facility] 06-06-2018 influenza, injectabl e, quadrivalent, preservative free [facility] 01-22-2011 influenza, seasonal, injectable, preservative free [facility] Work Phone: [facility] 01-22-2011 meningococcal polysaccharide (groups A, C, Y and W-135) diphtheria toxoid conjugate vaccine (MCV4P) [facility] Work Phone: [facility] 01-22-2011 tetanus toxoid, redu baltazar diphtheria toxoid, and acellular pertussis vaccine, adsorbed [facility] Work Phone: [facility] 02-16-2009 novel [id number], preservative-free, injectable [facility] Work Phone: [facility] 01-30-2009 influenza virus vaccine, live, attenuated, for intranasal use [facility] Work Phone: [facility] 02-03-2008 influenza, seasonal, injectable [facility] Work Phone: [facility] 03-01-2007 influenza virus vaccine, whole virus [facility] Work Phone: [facility] 07-24-2003 diphtheria, tetanus toxoids and acellular pertussis vaccine [facility] Work Phone: [facility] 07-24-2003 measles, mumps and rubella virus vaccine [facility] Work Phone: [facility] 07-24-2003 poliovirus vaccine, inactivated [facility] Work Phone: [facility] 03-22-2003 influenza, seasonal, injectable [facility] Work Phone: [facility] 09-30-2000 pneumococcal conjuga te vaccine, 7 valent [facility] Work Phone: [facility] 04-08-2000 influenza, seasonal, injectable [facility] Work Phone: [facility] 02-12-2000 influenza virus vaccine, whole virus [facility] Work Phone: [facility] 10-17-1999 diphtheria, tetanus toxoids and acellular pertussis vaccine, unspecified formulation [facility] Work Phone: [facility] 10-17-1999 haemophilus influenz ae type b vaccine, conjugate unspecified formulation [facility] Work Phone: [facility] 10-17-1999 measles, mumps and rubella virus vaccine [facility] Work Phone: [facility] 05-14-1999 poliovirus vaccine, inactivated [facility] Work Phone: [facility] 04-10-1999 diphtheria, tetanus toxoids and acellular pertussis vaccine, unspecified formulation [facility] Work Phone: [facility] 04-10-1999 haemophilus influenz ae type b vaccine, conjugate unspecified formulation [facility] Work Phone: [facility] 04-10-1999 hepatitis B vaccine, pediatric or pediatric/adolescent dosage [facility] Work Phone: [facility] 04-10-1999 trivalent poliovirus vaccine, live, oral [facility] Work Phone: [facility] 01-29-1999 diphtheria, tetanus toxoids and acellular pertussis vaccine, unspecified formulation [facility] Work Phone: [facility] 01-29-1999 haemophilus influenz ae type b vaccine, conjugate unspecified formulation [facility] Work Phone: [facility] 01-29-1999 poliovirus vaccine, inactivated [facility] Work Phone: [facility] 1998 diphtheria, tetanus toxoids and acellular pertussis vaccine, unspecified formulation [facility] Work Phone: [facility] 1998 haemophilus influenz ae type b vaccine, conjugate unspecified formulation [facility] Work Phone: [facility] 1998 hepatitis B vaccine, pediatric or pediatric/adolescent dosage [facility] Work Phone: [facility] 1998 poliovirus vaccine, inactivated [facility] Work Phone: [facility] 1998 hepatitis B vaccine, pediatric or pediatric/adolescent dosage [facility] Work Phone: [facility] NEGATED: Highlighted row has not occurred!03-03-2019 tetanus toxoid, reduced diphtheria toxoid, and acellular pertussis vaccine, adsorbed DO Phillip Tripp Work Phone: [facility] Payers Date Payer Category Payer Self-pay [id number] [address] [employer] [id number] 2022-Present [address] [place] [address] [id number] .[id number] 1998 Unknown [id number] 2.16.840.1.236987.3.579.2 .593 1998 Unknown [id number] 2.16.840.1.568415.3.579.2 .727 1998 Unknown [id number] 2.16.840.1.354426.3.579.2 .727 1998 Unknown [id number] 2.16.840.1.028758.3.579.2 .727 1998 Unknown [id number] 2.16.840.1.826083.3.579.2 .1258 1998 Unknown [id number] 2.16.840.1.054649.3.579.2 .1258 1998 Unknown [id number] 2.16.840.1.352589.3.579.2 .1258 1998 Unknown [id number] 2.16.840.1.586544.3.579.2 .1258 1998 Unknown [id number] 2.16.840.1.846813.3.579.2 .1258 1998 Unknown [id number] 2.16.840.1.232616.3.579.2 .1258 1998 Unknown [id number] 2.16.840.1.606651.3.579.2 .1258 1998 Unknown [id number] 2.16.840.1.729327.3.579.2 .1258 1998 Unknown [id number] 2.16.840.1.514171.3.579.2 .1258 1998 Unknown [id number] 2.16.840.1.951702.3.579.2 .1258 1998 Unknown [id number] 2.16.840.1.223741.3.579.2 .1258 1998 Unknown [id number] 2.16.840.1.026309.3.579.2 .1258 1998 Unknown [id number] 2.16.840.1.976974.3.579.2 .1258 1998 Unknown [id number] 2.16.840.1.877291.3.579.2 .1258 1998 Unknown [id number] 2.16.840.1.801620.3.579.2 .9 1998 Unknown [id number] 2.16.840.1.014672.3.579.2 .1258 1998 Unknown [id number] 2.16.840.1.987821.3.579.2 .1258 1998 Unknown [id number] 2.16.840.1.722820.3.579.2 .1258 1998 Unknown [id number] 2.16.840.1.800316.3.579.2 .1258 1998 Unknown [id number] 2.16.840.1.415992.3.579.2 .1258 1998 Unknown [id number] 2.16.840.1.648531.3.579.2 .1258 1998 Unknown [id number] 2.16.840.1.204322.3.579.2 .1258 1998 Unknown [id number] 2.16.840.1.304307.3.579.2 .1258 1998 Unknown [id number] 2.16.840.1.989130.3.579.2 .1258 1998 Unknown [id number] 2.16.840.1.957824.3.579.2 .1258 1998 Unknown [id number] 2.16.840.1.115218.3.579.2 .1258 1998 Unknown [id number] 2.16.840.1.577533.3.579.2 .1258 1998 Unknown [id number] 2.16.840.1.091759.3.579.2 .1258 1998 Unknown [id number] 2.16.840.1.699819.3.579.2 .1258 1998 Unknown [id number] 2.16.840.1.371162.3.579.2 .1258 1998 Unknown [id number] 2.16.840.1.968449.3.579.2 .1258 1998 Unknown [id number] 2.16.840.1.447072.3.579.2 .1258 1998 Unknown [id number] 2.16.840.1.990988.3.579.2 .1258 1998 Unknown [id number] 2.16.840.1.213189.3.579.2 .1258 1998 Unknown [id number] 2.16.840.1.298838.3.579.2 .1258 1998 Unknown [id number] 2.16.840.1.171763.3.579.2 .1258 1998 Unknown [id number] 2.16.840.1.778571.3.579.2 .1258 1998 Unknown [id number] 2.16.840.1.014370.3.579.2 .1258 1998 Unknown [id number] 2.16.840.1.280457.3.579.2 .1258 1998 Unknown [id number] 2.16.840.1.666967.3.579.2 .1258 1998 Unknown [id number] 2.16.840.1.662364.3.579.2 .1258 1998 Unknown [id number] 2.16.840.1.216307.3.579.2 .1258 1998 Unknown [id number] 2.16.840.1.863091.3.579.2 .1258 1998 Unknown [id number] 2.16.840.1.949228.3.579.2 .1258 1998 Unknown [id number] 2.16.840.1.476515.3.579.2 .1258 1998 Unknown [id number] 2.16.840.1.985027.3.579.2 .1258 1998 Unknown [id number] 2.16.840.1.677289.3.579.2 .1259 1998 Unknown [id number] 2.16.840.1.379396.3.579.2 .1259 1998 Unknown [id number] 2.16.840.1.264847.3.579.2 .9 1998 Unknown [id number] 2.16.840.1.048177.3.579.2 .9 1998 Unknown [id number] 2.16.840.1.478566.3.579.2 .9 1998 Unknown [id number] 2.16.840.1.854094.3.579.2 .1259 1959 Unknown [id number] Unknown [id number] Private Health Insurance [id number] Unknown [id number] 2.16.840.1.786875.3.579.2 .531 Unknown [id number] 2.16.840.1.509928.3.579.2 .531 Worker's Compensation [employer] Misc [id number] Social History Date Type Detail Facility Tobacco smoking stat [facility] Unknown if ever smoked [facility] Start: 1998 Sex Assigned At Female F [facility] Start: 04-12-2014 End: 04-12-2022 Tobacco smoking status NHIS Smoker (finding) [facility] Start: 11-10-2022 Tobacco smoking status Heavy t obacco smoker (finding) [facility] Start: 10-14-2022 End: 03-02-2023 Sex Assigned At Female [facility] Start: 04-12-2014 End: 05-19-2023 Tobacco smoking status [...] Healthcare How often do you att end zoroastrianism or orthodox services? Patient refused [facility] Are [...] To some extent [facility] (I/We) worried [facility] (my/our) food would run out before (I/we) got money to buy more. Never true [facility] Start: 11-30-2022 Alcohol Comment 1-2 drinks les s than monthly in the past year, Caffeine intake: 3-4 cups per day occasional, soda/pop [facility] Start: 1998 Sex Assigned At Not on file [facility] Start: 11-16-2023 End: 01-06-2024 Tobacco smoking status NHIS Ex-smoker (finding) [facility] Goals Date Patient Goal Desired Activity /State Functional Status Date Assessment Result Facility 05-27-2023 Functional Status N/A [facility] 11-10-2022 Functional Status N/A [facility] Clinical Notes 09-05-2021 to 01-07-2024 Telephone Encounter - Gege Eden - 01/07/2024 11:37 AM EDTTelephone Encounter - Gege Eden - 01/07/2024 11:37 AM EDTTelephone Encounter - Gianna Holman - 01/07/2024 10:19 AM EDT Note Date & Type Note Facility 01-07-2024 Telephone encount er Note Lvmtcb please complete ayah [facility] 01-07-2024 Miscellaneous Notes Formattin g of this note might be different from the original. Lvmtcb please complete ayah Per fax inbox pt was seen [facility] 01/05 low back pain documented in this encounter [facility] 01-07-2024 Telephone encount er Note Per fax inbox pt was seen [facility] 01/05 low back pain [facility] 01-05-2024 Telephone encount er Note [facility] 01-05-2024 Miscellaneous Notes Formattin g of this note might be different from the original. [facility] For what symptoms or pain? Pt calls and asks for a referral to pain management, please advise thank you documented in this encounter [facility] 01-05-2024 Telephone encount er Note For what symptoms or pain? [facility] 01-05-2024 Telephone encount er Note Pt calls and asks for a referral to pain management, please advise thank you [facility] 12-31-2023 History of Presen t illness Narrative [...] Vaccine (1) 12/12/2023 documented in this encounter [facility] 05-27-2023 Hospital Discharg e instructions Patient Education [...] sitting or lying down. General instructions Take fxiy-rbc-ccbqpeh and prescription medicines only as told by [...] provider. Document Revised: 07/06/2022 Document Reviewed: 02/16/2020 [employer] Patient Education 2022 [employer]. Follow Up Care 05/27/2023 11:17:41 With:Russell Chavez Address: [address] [place], [place] [id number] [facility] (1) When:05/30/2023 12:39:45 [facility] 05-27-2023 Evaluation + Plan note Extrac charli from: Title:ED Note Author:Pola Purcell PA-C te:05/27/23 Knee sprain (S83.90XA: Sprai n of unspecified site of unspecified knee, initial encounter) Orders: Knee Brace XR Knee Complete 4+ Views Right [facility]02-14-2024 History of Present illness Narrative* Bella Camara [...] further adjustments if necessary. documented in this encounterCitizens Memorial [id number] History of Present illness Narrative* Elisabet Giron [...] sub stitutions have occurred. documented in this encounterCitizens Memorial [id number] History of Present illness Narrative* EFREM Mccabe [...] ultrasound guidance. EFREM Mccabe documented in this [facility]02-07-2024 Instructions* Patient Instructions* EFREM Mccabe - 05/19/2023 [...] cortisone under ultrasound guidance. documented in this [facility]02-05-2024 History of Present illness Narrative* Maame Whitten [...] She states she is going to call [facility] geovanny [facility], She saw Shala Conn previously. [...] the decisions I made. documented in this encounterCitizens Memorial [id number] History of Present illness Narrative* Maame Fish [...] by _Marcela_, acting as scribe for Dr. lOeary_. Signature _Marielos JASSO_ Date _05/12/2023_. The documentation recorded by the scribe accurately reflects the service(s) I personally performed and the decisions I made. documented in this encounterCitizens Memorial [id number] Hospital Discharge instructions Patient Education 11/10/2022 19:05:26 [...] to any changes in your symptoms. Take rygb-flv-ctljwuh and prescription medicines only as told by [...] provider. Document Revised: 11/15/2021 Document Reviewed: 11/15/2021 [employer] Patient Education 2022 [employer]. 11/10/2022 19:05:26 Abdominal Pain, Adult Abdominal Pain, [...] Follow these instructions at home: Medicines Take iwvs-khx-sdjwwku and prescription medicines only as told by [...] Watch your condition for any changes. Take fbgg-dkv-kiefpgf and prescription medicines only as told by [...] provider. Document Revised: 05/17/2020 Document Reviewed: 08/07/2019 [employer] Patient Education 2022 [employer]. Follow Up Care 11/10/2022 15:59:56 With:Bella Camara Address: [place] [address] Business (1) When:11/13/2022 18:55:01 Comments:Retrurn to the emergency room if your shortness of breath recurs, abdominal pain recurs or any new symptoms. [facility]08-01-2023 Evaluation + Plan noteExtracted from: Title:ED Note [...] With Cult Reflex XR Chest Single View [facility]05-27-2022 NoteHISTORY: Mid to lower back pain intermittently. [...] signed by Jonnie Jacob on 09/09/2021 [id number]istEvaluation noteNo assessment information available[facility] Work Phone: Evaluation note* Diagnosis It band syndrome, right- Primary Right hip pain Pain in joint, pelvic region and thigh Trochanteric bursitis of right hip documented in this encounter [facility] HealthcareEvaluation note* Diagnosis Trochanteric bursitis of right hip- Primary documented in this encounter [facility] HealthcareEvaluation note* Diagnosis Nasal injury, initial encounter- Primary Generalized headache BMI 21.0-21.9, adult documented in this encounter [facility] HealthcareEvaluation note* Diagnosis Trochanteric bursitis of right hip- Primary Levoscoliosis documented in this encounter [facility] HealthcareEvaluation note* Diagnosis Anxiety Anxiety state, unspecified documented in this encounter [facility] HealthcareEvaluation note* Diagnosis Difficulty sleeping Unspecified sleep disturbance Anxiety Anxiety state, unspecified documented in this encounter [facility] Narrative No data available for this section [facility] Additional Instructions If your symptoms return/worsen or you develop any further concerns or symptoms please see your doctor or return to the emergency department immediately.[facility] Work Phone: Hospital Discharge instructions Additional Instructions Increase your intake of fluids. Take Zofran as prescribed for any nausea. Take Tamiflu to help decrease the duration of symptoms. Take Motrin Tylenol as needed for fever and chest pain. Follow-up with PCP for any persistent symptoms in 5 to 7 days.[facility] Work Phone: Hospital Discharge instructions No data available for this section [facility] No data available for this section [facility] Summary Purpose Family History Relationship Condition Age [...] right Trochanteric bursitis of right hip Procedures CT OFFICE/OUTPATIENT [facility] 60 MINUTES Shala Conn, PA [address] [place] [address] Daja Carter, PT [address] [place] [address] Referral ID Status Reason Start Date Expiration Date Visits Requested Visits Authorized [id number] Pending Review Specialty Services Required 05/19/2023 11/15/2023 1 1 Additional Source Comments INFORMATION SOURCE (unrecogn ized section and content) DATE CREATED AUTHOR 09/14/2018 [facility] DATE CREATED AUTHOR AUTHOR'S ORGANIZ ATION 10/01/2020 [facility] DATE CREATED AUTHOR AUTHOR'S ORGANIZ ATION 10/05/2020 [facility] DATE CREATED AUTHOR AUTHOR'S ORGANIZ ATION 09/09/2021 [facility] dical Specialist DATE CREATED AUTHOR AUTHOR'S ORGANIZ ATION 10/16/2023 [facility] DATE CREATED AUTHOR AUTHOR'S ORGANIZ ATION 01/03/2024 [facility] dical Specialists EPIC DATE CREATED AUTHOR AUTHOR'S ORGANIZ ATION 01/21/2024 [facility] Care Teams (unrecognized sec [...] Phillip Shaw , DO Emergency Provider Active 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 Relationship 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 Start Date End Date Bella Camara MD [address] [place] [address] PCP - General Family Medicine 09/04/22 Morenita Corona, PA [address] [place] [address] PCP - Medical [employer] 09/10/22 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 Relationship Specialty Start Date End Date Bella Camara MD [address] [place] [address] PCP - General Family Medicine 09/04/22 Morenita Corona, PA [address] [place] [address] PCP - Medical [employer] 09/10/22 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 Relationship Specialty Start Date End Date Bella Camara MD [address] [place] [address] PCP - General Family Medicine 09/04/22 Morenita Corona PA [address] [place] [address] PCP - Medical [employer] 09/10/22 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 Relationship Specialty Start Date End Date Bella Camara MD [address] [place] [address] PCP - General Family Medicine 09/04/22 Morenita Corona, PA [address] [facility] [address] [place] [address] PCP - Medical [employer] 09/10/22 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 Relationship Specialty Start Date End Date Bella Camara MD [address] [place] [address] PCP - General Family Medicine 09/04/22 Morenita Corona, PA [address] [place] [address] PCP - Medical [employer] 09/10/22 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 Relationship Specialty Start Date End Date Bella Camara MD [address] [place] [address] PCP - General Family Medicine 09/04/22 Morenita Corona, PA [address] [facility] [address] [place] [address] PCP - Medical [employer] 09/10/22 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 Relationship Specialty Start Date End Date Bella Camara MD [address] [place] [address] PCP - General Family Medicine 09/04/22 Morenita Corona, PA [address] [place] [address] [place] [address] PCP - Medical [employer] 09/10/22 Team Status: Active Member Role Status Dates Miracle Padilla MD Primary Care Provider Active Team Status: Inactive Member Role Status Dates Miracle Padilla MD Primary Care Provider Active S tart: January 06, 2024 End: January 06, 2024 Cuco TREVON Hall Emergency Provider Active Start: January 06, 2024 End: January 06, 2024 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 Relationship Specialty Start Date End Date Bella Camara MD [address] [place] [address] PCP - General Family Medicine 09/04/22 01/06/24 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 Relationship Specialty Start Date End Date Bella Camara MD [address] [place] [address] PCP - General Family Medicine 09/04/22 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 Relationship Specialty Start Date End Date Bella Camara MD [address] [place] [address] PCP - General Family Medicine 09/04/22 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 Relationship Specialty Start Date End Date Miracle Padilla MD [address] [place] [address] PCP - General Family Medicine 01/07/24 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 Relationship Specialty Start Date End Date Miracle Padilla MD [address] [place] [address] PCP - General Family Medicine 01/07/24 Goals [...] BE BASED ON THE PRIMARY CLINICAL RECORDS. [facility] [employer] [facility]. provides no warranty or guarantee of the accuracy or completeness of information in this document.
[2024-06-08 17:48] VITALS: BP 118/77; PULSE 66; TEMP 36.6; O2SAT 100; BMI 21.4
[2024-06-08] MEDS: ONDANSETRON 4 MG RAPDIS TABLET SL (18:12)
--- NOTE | 2024-06-08 18:24 | ED_ITS ---
HPI HPI - General Adult General Chief complaint: Headache Stated complaint: VOMITTING, MIGRAINE Time Seen by Provider: 06/08/24 17:59 Source: patient Mode of arrival: walk-in Limitations: no limitations History of Present Illness HPI narrative: The patient have a history of migraine and she came to the ER because she was initially having some headache with nausea and vomiting, but she mentioned that apparently she took her medication for her headache and by the time she got to the ER she does not have any headache, she still have some nausea Patient have a history of migraine she takes Nyrtek Related Data Home Medications ?Medication ?Instructions ?Recorded ?Confirmed bupropion HCl 150 mg 24 hr tablet, 150 mg PO QDAY 06/02/24 06/02/24 extended release duloxetine 60 mg capsule,delayed 60 mg PO QDAY 06/02/24 06/02/24 release Previous Rx's ?Medication ?Instructions ?Recorded ondansetron 4 mg disintegrating 4 mg PO Q8H PRN nausea and 06/08/24 tablet vomiting 48 hours #10 tabs Allergies Allergy/AdvReac Type Severity Reaction Status Date / Time penicillin G Allergy Mild Rash Verified 06/08/24 17:47 cefdinir AdvReac Severe Anaphylaxis Verified 06/08/24 17:47 Opioid HPI Opioid Management Most Recent Opioid Data: Last Pain Scale 6 11/27/23 09:33 11/27/23 Review of Systems ROS Status of ROS 10 or more systems reviewed and unremark able except as noted in history and below PFSH PFSH Social History Smoking status: Current every day smoker Little interest or pleasure in doing things: not at all Feeling down, depressed, or hopeless: not at all Exam Narrative Exam Narrative: Nurses notes and vital signs reviewed and patient is not hypoxic. General: Well-appearing and in no apparent distress. Skin: Warm, dry, no pallor noted. No rash. Head: Normocephalic, atraumatic. Neck: Supple, non-tender. Eye: Pupils are equal, round and EOMI. No scleral icterus. Ears, Nose, Mouth, and Throat: TM are clear, no nasal mucosal hypertrophy. Oral mucosa is moist, no posterior oropharynx erythema, uvula is mid-line Cardiovascular: Regular Rate and Rhythm without murmur, gallop or rub. Respiratory: No accessory muscle use or respiratory distress. Lungs are clear to auscultation, no wheezing, rales or rhonchi Chest Wall: no tenderness Back: No midline thoracic or lumbar vertebral tenderness. No CVA tenderness Musculoskeletal: normal ROM, no calf or popliteal tenderness, no lower extremity edema/swelling GI: Abdomen is soft, non-distended. Normal bowel sounds. No masses appreciated. No tenderness to palpation. No rebound, guarding, or rigidity noted. Neurological: A&O x4. No cranial nerve dysfunction observed. No truncal ataxia. Moves all extremities. Sensation intact. Psychiatric: Cooperative and interactive. Normal mood and affect. Constitutional Vital Signs, click to edit/add: Last Vital Signs Temp 97.8 F 06/08/24 17:48 Pulse 66 06/08/24 17:48 Resp 20 06/08/24 17:48 BP 118/77 06/08/24 17:48 Pulse Ox 100 06/08/24 17:48 O2 Del Method Room Air 06/08/24 17:48 Course Vital Signs Vital signs: Vital Signs Temperature 97.8 F 06/08/24 17:48 Pulse Rate 66 06/08/24 17:48 Respiratory Rate 20 06/08/24 17:48 Blood Pressure 118/77 06/08/24 17:48 Pulse Oximetry 100 06/08/24 17:48 Oxygen Delivery Method Room Air 06/08/24 17:48 Temperature 97.8 F 06/08/24 17:48 Pulse Rate 66 06/08/24 17:48 Respiratory Rate 20 06/08/24 17:48 Blood Pressure 118/77 06/08/24 17:48 Pulse Oximetry 100 06/08/24 17:48 Oxygen Delivery Method Room Air 06/08/24 17:48 Medical Decision Making [facility] Narrative Medical decision making narrative: The patient test is negative Her headache resolved by the time she arrived to the ER she still had some nausea that resolved after the Zofran Right now the patient was discharged home with supportive care with Zofran for possible viral infection or nausea secondary to migraine The patient is to follow up with primary care physician in next 2-3 days or to return to the emergency department should any of the signs or symptoms worsen or new symptoms develop. The patient agrees with the following Diagnosis and Treatment plan and the patient will be discharged home. Lab Data Labs: Lab Results 06/08/24 Range/Units 18:27 Urine HCG, Qual Negative (NEGATIVE) Discharge Plan Discharge Chief Complaint: Headache Clinical Impression: Migraine, Nausea & vomiting Patient Disposition: Home, Self-Care Time of Disposition Decision: 18:40 Condition: Good Prescriptions / Home Meds: New ondansetron 4 mg tablet,disintegrating 4 mg PO Q8H PRN (Reason: nausea and vomiting) 2 Days Qty: 10 0RF No Action duloxetine 60 mg capsule,delayed release(DR/EC) 60 mg PO QDAY bupropion HCl 150 mg tablet extended release 24 hr 150 mg PO QDAY Print Language: Danish Instructions: Acute Nausea and Vomiting (DC) Referrals: EUNICE GALE [Primary Care Provider] - 1 week
[2024-06-08 18:38] LABS: HCG Qualitative Urine* NEGATIVE (NEGATIVE); Internal Control Within Normal Limits
== END 2024-06-08 18:47 | disposition home or self-care (01) ==
PROVIDERS: Emergency Provider Emergency Medicine; PCP Student in an Organized Health Care Education/Training Program
DX: R11.2 Nausea with vomiting, unspecified (principal); G43.909 Migraine, unspecified, not intractable, without status migrainosus
CPT/HCPCS: 84703; 99283; Q0162

== ENCOUNTER 2024-07-03 03:43 | Emergency (ER) | payer SELFPAY ==
[2024-07-03 03:51] VITALS: BP 107/79; PULSE 55; TEMP 36.7; O2SAT 100; BMI 21.5
--- OUTSIDE RECORDS SUMMARY | 2024-07-03 03:52 | XMS_ITS | CCD ---
Author Organization [facility] CliniSysc Care Team Providers Care Farm Operations Manager Name Role Phone MISC, DOCTOR Primary Care Unavailable SABA SOLO Admitting Unavailable SABA SOLO Attending Unavailable SABA SOLO Consulting Unavailable DO Phillip Tripp Primary Care Provider [phone] DO Taran Rea Emergency Provider [phone] DO Phillip Shaw Emergency Provider UnaBella Logan Primary Care Physician [phone] Bella Camara MD Primary Care Provider Morenita [...] Primary Care Provider TREVON Hall Emergency Provider [phone] Bella Camara MD Primary Care Provider Cuco Hall Admitting Unavailable Cuco Hall Attending Unavailable Miracle Padilla Primary Care Unavailable Grabiel Luna Admitting Unavailable Grabiel Luna Attending Unavailable Miracle Padilla MD Primary Care Provider Unavailable Unavailable Unavailable Allergies Allergy Classification Reported Allergen(s) Allergy Type Date of Onset Reaction(s) Facility (4 sources) Penicillins Drug allergy (disorder) 4 [facility] Repository (4 sources) Penicillin; Translations: [penicillin] Drug Allergy [facility] (18 sources) cefdinir Drug Allergy 2 [facility] (18 sources) Penicillins Drug Allergy 1 Rash [facility] (1 source) No Known Medication Allergies; Translations: [No Known Medication Allergies] Propensity to adverse reactions (disorder) [facility] Repository (1 source) Penicillins Drug allergy (disorder) 4 [facility] Repository Medications Current Medications Medication Drug Class(es) [...] Start: 05-20-2023 take 5 tablets by mo [facility] once daily, then take 4 tablets [...] Ordered Start: 04-12-2022 take 1 tablet by [facility] twice daily Sucralfate (Carafate) 1 gram [...] (Phenergan) 25 mg suppository Discontinued 25 MG SC Q4H 6 August 16, 2018 12:00am September [...] (3 sources) Start: 10-18-2017 End: 04-12-2018 take 16510 [IU] by mouth once daily Vitamin D3 Discontinued 11830 UNIT PO Daily October 18, 2017 12:00am April 12, 2018 3:35am Start: 10-18-2017 End: 04-12-2018 take 20147 [IU] by mouth once daily Vitamin D3 Discontinued 09588 UNIT PO Daily October 17, 2017 11:00pm [...] SURF AB QUANT 9.1 Abnormal Immunity>10 mIU/mL [facility] Comment on above: Status of Immunity A nti-HBs Level Inconsistent with Immunity 0.0 - 10.0 Consistent with Immunity >10.0 Interpretation and review of laboratory results Abnormal [facility] MEASLES/MUMPS/RUBELLA IMMUNI TYon 05-25-2024 MEASLES ANTIBODIES, IGG >300.0 Immu ne >16.4 AU/mL [facility] Comment on above: Negative <13.5 Equivocal 13.5 - 16.4 Positive >16.4 Presence of antibodies to Rubeola is presumptive evidence of immunity except when acute infection is suspected. MUMPS ABS, IGG 69.4 AU/mL Immune >10.9 [facility] Comment on above: Negative <9.0 Equivocal 9.0 - 10.9 Positive >10.9 A positive result generally indicates past exposure to Mumps virus or previous vaccination. Performed at: [address] [id number] Transplanter: Nikita Humphries PhD, Phone: [phone] RUBELLA ANTIBODIES, IGG 2.80 Immu ne >0.99 index [facility] Comment on above: Non-immune <0.90 Equivocal 0.90 - 0.99 Immune >0.99 No Panel Informationon 05-25 CLINISYNC [facility] VARICELLA-ZOSTER V AB, IGGon 05-25-2024 VARICELLA-ZOSTER V AB, IGG Non-Reactive Non Reactive [facility] Comment on above: Please note refere nce interval change A Reactive result is considered evidence of immunity to VZV. Reactive indicates that VZV IgG was detected consistent with previous infection and/or vaccination. A Non Reactive result indicates that VZV IgG was not detected suggesting that immunity has not been acquired. Performed at: - [address] [id number] Transplanter: Nikita Humphries PhD, Phone: [phone] XR Chest 2 [facility]son XR Chest 2 [...] (Electronic Signature): 10/07/2023 7:43 pm Signed by: jP Medina Transcribed by: RYAN Technologist: CALEB Technical Comments Radiation Dose: Ka,r in mGy = . DAP = . Normal [facility] MR KNEE RIGHT WO IV CONTRAST [...] for Treatmenton 05-13 Consent for Treatment [id number] [facility] [id number]#1 .00TIFF Normal [facility] Discharge Instructionson Discharge Instructions [id number]# 1.00TIFF Normal [facility] ED Clinical Summaryon 2023 ED Clinical Summary [place] [id number] ED Clinical Summary Person Information Name: MAURY COLLAZO [place] Age: 22 Years : 2000 Sex: Female Language: Telugu PCP: Hoa JASSO, Bella Shaw Marital Status: [...] 05/27/2023 13:04:43 05/27/2023 13:04:43 ADDRESS: [facility] [address] [facility] [id number] [facility] DOC NOTES: MEDICAL INFORMATION: Prescriptions Given: Medications to Continue with No Changes Other Medications promethazine (promethazine 25 mg Tab) 1 Tablets By Mouth every 6 hours as needed as needed for nausea/vomiting. Refills: 0. PATIENT EDUCATION INFORMATION: Instructions: Knee Sprain, Adult Follow up: With: Address: When: Russell Chavez [address] [place], [place] [id number] Business (0) In 3 days 05/30/2023 DIAGNOSIS: Knee sprain Normal [facility] ED Noteon 05-27-2023 ED Note [id number]# 1.00TIFF Normal [facility] ED Note-Physicianon 05-27-19 ED Note-Physician Basic [...] Scott In 3 days 05/30/2023 EST [address] [place] [address]- Business (1) Additional Instructions: Patient Education Knee [...] made to ensure accuracy, however, inadvertently computerized grade setter mistakes may be present. Appropriate healthcare PPE [...] = na Signed By: Kalin Goldberg MD [facility] Comment on above: Result Comment: Elec tronically [...] or lying down. General instructions ? Take ayno-lxd-vezgogv and prescription medicines only as told by [...] Reviewed: 02/16/2020 Elsevier Patient Education ? 2022 [employer] Normal [facility] ED Patient Summaryon 024 ED Patient Summary [address] [place] [address] Patient Discharge Instructions Person Information Name: MAURY COLLAZO Age: 22 Years Arrival Date: 05/27/2023 11:15:44 Discharge Diagnosis: Knee sprain Primary Care Physician: Bella Camara MD Provider Information Primary Provider: Michael Hannah M.D. Advanced Supervisor [employer]:Pola Purcell PA-C The exam and treatment you received in the Emergency Department were for an urgent problem and are not intended as complete care. It is important that you follow up with a doctor, nurse practitioner, or physician?s orthodontic technician assistant for ongoing care. If your symptoms [...] Follow-up Instructions: With: Address: When: Russell Chavez [address] [place], [place] [id number] Business (1) In 3 days 05/30/2023 In the event that this physician does not participate in your insurance network, please consult with your insurance company to find a nearby participating provider. Patient Education Materials: Knee Sprain, Adult A MESSAGE TO ALL PATIENTS REGARDING OPIOIDS PRESCRIPTION OPIOIDS: WHAT YOU NEED TO KNOW Prescription opioids can be used to help relieve dynsgqit-ny-dkivaw pain and are often prescribed following a [...] be struggling with addiction, tell your health landcare facilitator and ask for guidance or call [facility] National Helpline at 5-566-165-OBJW. v Source: US Department of Health (more [...] mGy = na DAP = na Normal [facility] XR Hip - right 3 [facility] Result: AP pelvis bilateral hip and frog view of the right hip taken in the office today which do not demonstrate any congenital abnormalities with a femoral head or acetabulum no evidence of acute fracture or bony tumor seen. [facility] Radiology Study observation (narrative) [facility] XR Lumbar spine 4 [facility] Result: AP lateral and oblique of the lumbar spine taken in the office which he end demonstrates no change in her thoracolumbar scoliosis she does have noted Schmorl nodes multiple discs and developing some early facet hypertrophy in the lumbar spine [facility] Radiology Study observation (narrative) [facility] 03-26-2023 L - -------- Specimen: [id number] Received: 03/29/23 Status: MARYA Trish Num: [id number] Spec Type: Surgical Subm Dr: GRABIEL LUNA MD Tissues: A Skin Cyst (VAGINAL CYST WALL) Procedures: HE, Gross/Micro L3 -------- Age/ Patient Sex Location Account Attending Physician -------- Maury Collazo 22/F [place] [id number] GRABIEL LUNA MD -------- SPEC NUM: [id number] RECD: 03/29/23 STATUS: MARYA CERNA NUM: [id number] BASIL: 03/26/23- [facility] DR: GRABIEL LUNA MD ENTERED: 03/29/23-4 [facility] DR: Jamie [facility] SPEC TYPE: Surgical DEPT: S [...] microscopic examination confirms the diagnosis. CPT Codes 86310 -------- -------- Specimen: [id number] Received: 03/29/23 Status: MARYA Walshblake Num: [id number] Spec Type: Surgical Subm Dr: GRABIEL LUNA MD Tissues: A Skin Cyst (VAGINAL CYST WALL) Procedures: Basil PRATHER/Harmony L3 -------- Patient: Maury Collazo [id number] (Continued) -------- Signed (signature on file) Jessica Osorio MD 03/30/235 Normal [facility] XR Chest Single Viewon 11-11 [...] mGy = na DAP = na Normal [facility] Auto Diffon 11-10-2022 Basophils/100 WBC (Bld) 0.5 % Normal 0.0-2.0 [facility] Comment on above: Order Comment: Order Added by Discern Expert. Performed By: #### 2 134449, 7289680, 39004859, 1717803, 9951161, 75323589, 6824583, 5138527 ####[facility] [address] [place] [address] Basophils/Leukocytes Auto (Bld) [Pure # fraction] 0.0 E9/L Normal 0.0-0.2 [facility] Comment on above: Order Comment: Order Added by Discern Expert. Performed By: #### 2 648655, 1457890, 45262494, 9079089, 0297752, 15995173, 0734375, 2043771 ####[facility] [address] [place] [address] Eosinophils/100 WBC (Bld) 1.0 % Normal 0.0-8.0 [facility] Comment on above: Order Comment: Order Added by Discern Expert. Performed By: #### 2 097812, 6217193, 68246914, 8985755, 0268266, 52806196, 5342821, 9964594 ####[facility] [address] [place] [address] Eosinophils/Leukocytes Auto (Bld) [Pure # fraction] 0.1 E9/L Normal 0.0-0.5 [facility] Comment on above: Order Comment: Order Added by Discern Expert. Performed By: #### 2 650311, 3617836, 05633583, 3429071, 7003327, 90011818, 4246050, 9982732 ####[place] [address] [place] [address] Lymphocytes/100 WBC (Bld) 26.5 % Normal 14.0-50.0 [facility] Comment on above: Order Comment: Order Added by Discern Expert. Performed By: #### 2 508634, 7426255, 89500714, 3003111, 1839469, 82219581, 2066106, 7623404 ####[place] [address] [place] [address] Lymphocytes/Leukocytes Auto (Bld) [Pure # fraction] 2.3 E9/L Normal 1.0-4.0 [facility] Comment on above: Order Comment: Order Added by Discern Expert. Performed By: #### 2 777967, 3096258, 92677416, 4944749, 2845001, 58545060, 2316301, 3140221 ####[place] [address] [place] [address] Monocytes/100 WBC (Bld) 5.2 % Normal 4.0-14.0 [facility] Comment on above: Order Comment: Order Added by Discern Expert. Performed By: #### 2 298240, 8463821, 83384116, 2356909, 4426516, 30542602, 8579941, 2451647 ####[place] [address] [place] [address] Monocytes/Leukocytes Auto (Bld) [Pure # fraction] 0.4 E9/L Normal 0.2-1.0 [facility] Comment on above: Order Comment: Order Added by Discern Expert. Performed By: #### 2 983973, 1795804, 44953168, 1256467, 6767906, 85231111, 8386486, 6128735 ####[facility] [address] [place] [address] Neutrophils/100 WBC (Bld) 66.8 % Normal 36.0-75.0 [facility] Comment on above: Order Comment: Order Added by Discern Expert. Performed By: #### 2 695650, 5421648, 65346199, 2915670, 3037012, 91708639, 7185756, 8898606 ####[facility] [address] [place] [address] Neutrophils/Leukocytes Auto (Bld) [Pure # fraction] 5.7 E9/L Normal 2.0-7.5 [facility] Comment on above: Order Comment: Order Added by Discern Expert. Performed By: #### 2 913056, 8282769, 39368470, 8042367, 9590758, 19589481, 3402949, 7780576 ####[facility] [address] [place] [address] BMPon 11-10-2022 Creatinine [Mass/Vol] 0.8 mg/dL Normal 0.5-1.3 [facility] Comment on above: Performed By: #### 2 942775, 2939440, 72312548, 4427498, 1602803, 05277359, 3425836, 5424953 ####[facility] [address] [place] [address] Urea nitrogen [Mass/Vol] 13 mg/dL Normal 5-21 [facility] Comment on above: Performed By: #### 2 648872, 4327917, 86818850, 2743874, 1089567, 64250758, 4530867, 0818052 ####[facility] [address] [place] [address] Urea nitrogen/Creatinine [Mass ratio] 16 No Units Normal 10-20 [facility] Comment on above: Performed By: #### 2 104905, 6021771, 50261314, 9604305, 6747720, 76655519, 4173738, 5084221 ####[facility] [address] [place] [address] Anion gap [Moles/Vol] 13 mmol/L Normal 6-16 [facility] Comment on above: Performed By: #### 2 547671, 3801220, 51489810, 5950429, 4968220, 65977063, 3737772, 3493147 ####[facility] [address] [place] [address] Calcium [Mass/Vol] 9.7 mg/dL Normal 8.9-11.1 [facility] Comment on above: Performed By: #### 2 915237, 3890974, 94649341, 3496281, 3392504, 67322771, 5039999, 4131394 ####[facility] [address] [place] [address] Chloride [Moles/Vol] 105 mmol/L Normal 101-111 [facility] Comment on above: Performed By: #### 2 053861, 5666949, 99187397, 3514622, 0257139, 88438318, 7855117, 7734593 ####[facility] [address] [place] [address] CO2 [Moles/Vol] 24 mmol/L Normal 21-31 [facility] Comment on above: Performed By: #### 2 401061, 7919827, 48390220, 6018338, 5746499, 36635318, 2353532, 8878252 ####[facility] [address] [place] [address] Glucose [Mass/Vol] 96 mg/dL Normal 55-199 [facility] Comment on above: Result Comment: If t his glucose result represents a fasting glucose, interpretation should refer to the following reference range: 55-99 mg/dL Performed By: #### 2 395554, 4498152, 52312851, 3847797, 4134096, 69030986, 2688373, 2470810 ####[facility] [address] [place] [address] Potassium [Moles/Vol] 3.8 mmol/L Normal 3.5-5.3 [facility] Comment on above: Performed By: #### 2 466611, 1677697, 04690415, 0849806, 3277261, 26846428, 3668654, 8129529 ####[facility] [address] [place] [address] Sodium [Moles/Vol] 138 mmol/L Normal 135-145 [facility] Comment on above: Performed By: #### 2 779331, 6302767, 57762819, 3023428, 7554846, 27196725, 3983946, 3910773 ####[place] [address] [place] [address] CBC w/ Auto Diffon 3 Erythrocyte distribution width (RBC) [Ratio] 13.5 % Normal 10.9-14.2 [facility] Comment on above: Performed By: #### 2 339598, 1397695, 52279025, 7878747, 7552883, 34407884, 0138214, 1887039 ####[place] [address] [place] [address] Hematocrit (Bld) [Volume fraction] 40.4 % Normal 34.0-46.0 [facility] Comment on above: Performed By: #### 2 723161, 5298011, 74003883, 4577994, 0031521, 81631888, 0684553, 4293076 ####[facility] [address] [place] [address] Hemoglobin (Bld) [Mass/Vol] 13.7 g/dL Normal 12.0-16.0 [facility] Comment on above: Performed By: #### 2 771816, 0760490, 02159071, 6695585, 8062035, 85016943, 5654018, 0566118 ####[facility] [address] [place] [address] MCH (RBC) [Entitic mass] 30.0 pg Normal 27.0-34.0 [facility] Comment on above: Performed By: #### 2 982449, 0355325, 23020178, 5389260, 5081914, 52241725, 9642102, 6403398 ####[facility] [address] [place] [address] MCHC (RBC) [Mass/Vol] 33.9 g/dL Normal 31.4-36.0 [facility] Comment on above: Performed By: #### 2 698038, 2368664, 00209907, 7767515, 0542268, 74876903, 6630056, 1697510 ####[address] [address] MCV (RBC) [Entitic vol] 88.6 fL Normal 80.0-100.0 [facility] Comment on above: Performed By: #### 2 130976, 4027087, 80780666, 4186845, 8118845, 75131298, 7469802, 8517125 ####[address] [address] Platelet mean volume (Bld) [Entitic vol] 10.8 fL Normal 6.4-10.8 [facility] Comment on above: Performed By: #### 2 230763, 9477723, 48452654, 8764059, 1502277, 87411767, 9044673, 5056143 ####[facility] [address] [place] [address] Platelets (Bld) [#/Vol] 192.0 E9/L Normal 150.0-500.0 [facility] Comment on above: Performed By: #### 2 563266, 2862733, 54133277, 5699574, 0192370, 24649043, 3155110, 8588716 ####[address] [address] RBC (Bld) [#/Vol] 4.6 E12/L Normal 4.3-5.9 [facility] Comment on above: Performed By: #### 2 626299, 1079550, 57540976, 3807323, 7562971, 10619067, 5995394, 3809671 ####[facility] [address] [place] [address] WBC corrected for nucl RBC Auto (Bld) [#/Vol] 8.5 E9/L Normal 4.0-11.0 [facility] Comment on above: Result Comment: Slid e reviewed by MA. Performed By: #### 2 053569, 5169043, 80593385, 7485834, 8179563, 77514924, 8176473, 7540165 ####[facility] [address] [place] [address] CHEMISTRYOrdered By: SYSTEM SYSTEM on 11-10-2022 Albumin [...] 105 mL/min/1.73 m2 Normal >=59mL/min/1 .73 m2 [facility] Chem S Globulin (S) [Mass/Vol] 3.1 g/dL [...] FEU Low 215 - 500 ng/mL FEU [facility] Auto Coag Consent for Treatmenton Consent for Treatment [id number]#1 .00CD:127 Normal [facility] D-Dimeron 11-10-2022 Fibrin D-dimer FEU (PPP) [Mass/Vol] <215 Low 215-500 [facility] Comment on above: Result Comment: This [...] infections Liver cirrhosis Performed By: #### 2 098209, 8910613, 50495452, 8249834, 3148608, 30945454, 2376046, 9873444 ####[facility] [address] [place] [address] Discharge Instructionson Discharge Instructions [id number]# 1.00CD:127 Normal [facility] ED Clinical Summaryon 2022 ED Clinical Summary [address] [address] ED Clinical Summary Person Information Name: MAURY COLLAZO Lisa/[facility] Age: 22 Years : 2000 Sex: Female Language: Telugu PCP: Bella Camara MD Marital Status: Single [...] 19:05:26 11/10/2022 19:05:26 ADDRESS: [address] [facility] [address] [id number] [facility] NOTES: MEDICAL INFORMATION: Prescriptions Given: New Medications [...] Address: When: [place] [address] [place] [address] Business (1) In 3 days 11/13/2022 Comments: Retrurn to the emergency room if your shortness of breath recurs, abdominal pain recurs or any new symptoms. DIAGNOSIS: 1:Abdominal pain; 2:Shortness of breath Normal [facility] ED Note-Physicianon 11-11-19 ED Note-Physician Basic [...] and Complexity of Problems Differential Diagnosis: [] [facility] Data External documents reviewed: [] My EKG [...] Contact I (more content not included)... Normal [facility] Comment on above: Result Comment: Elec [...] these instructions at home: Medicines ? Take navl-vor-gitkshn and prescription medicines only as told by [...] your condition for any changes. ? Take qmfk-vgq-peqibyn and prescription medicines only as told by [...] provider. Document Revised: 05/17/2020 Document Reviewed: 08/07/2019 [employer] Patient Education ? 2022 [employer]. Pulmonary Medicine Shortness of Breath, Adult Shortness [...] any changes in your symptoms. ? Take ajes-tge-cidaibg and prescription medicines only as told by [...] ? D (more content not included)... Normal [facility] ED Patient Summaryon 023 ED Patient Summary [address] [address] Patient Discharge Instructions Person Information Name: MAURY COLLAZO Age: 22 Years Arrival Date: 11/10/2022 15:56:06 Discharge Diagnosis: 1:Abdominal pain; 2:Shortness of breath Primary Care Physician: Bella Camara MD Provider Information Primary Provider: Michael Hannah M.D. Advanced Supervisor [employer]:None The exam and treatment you received in the Emergency Department were for an urgent problem and are not intended as complete care. It is important that you follow up with a doctor, nurse practitioner, or physician?s orthodontic technician assistant for ongoing care. If your symptoms [...] Instructions: With: Address: When: Bella Camara [facility] [place] [address] Business (1) In 3 days 11/13/2022 Comments: [...] opioids can be used to help relieve psagygme-ty-aapsad pain and are often prescribed following a [...] struggling wi (more content not included)... Normal [facility] HEMATOLOGYOrdered By: SYSTEM SYSTEM on 11-10-2022 [...] above: Result Comment: Slid e reviewed by [facility] Panelon 11-10-2022 Bilirubin.indirect [Mass or moles/Vol] UTC Abnormal 0.1-0.9 [facility] Comment on above: Result Comment: Resu lt verified by Discern Rule. Performed result UTC (Unable to Calculate) was sent as an Alpha code due the inability to calculate a valid numeric value. Performed By: #### 2 240911, 7255725, 37636771, 2408129, 1216872, 62110314, 4573852, 1408629 ####[facility] [address] [place] [address] Albumin [Mass/Vol] 4.6 g/dL Normal 3.3-5.0 [facility] Comment on above: Performed By: #### 2 776351, 1707903, 69373558, 7987064, 7645388, 91640977, 8809023, 8097240 ####[facility] [address] [place] [address] Albumin/Globulin (S) [Mass conc ratio] 1.5 Normal 1.1-2.2 [facility] Comment on above: Performed By: #### 2 765537, 9049203, 36714595, 2622988, 3785089, 31543612, 0795380, 1642388 ####[facility] [address] [place] [address] ALP [Catalytic activity/Vol] 41 Int._Unit/L Normal 21-98 [facility] Comment on above: Performed By: #### 2 849683, 6741812, 12534663, 5720197, 8577403, 95848311, 4768479, 6490867 ####[facility] [address] [place] [address] ALT No additional P-5'-P [Catalytic activity/Vol] 17 Int._Unit/L Normal 6-46 [facility] Comment on above: Performed By: #### 2 090082, 7268375, 89977905, 9913938, 5474767, 29309578, 8314677, 3311803 ####[place] [address] [place] [address] AST [Catalytic activity/Vol] 17 Int._Unit/L Normal 5-43 [facility] Comment on above: Performed By: #### 2 589540, 4787567, 86547315, 0772654, 9344364, 49036229, 7325254, 2749692 ####[place] [address] [place] [address] Bilirubin [Mass/Vol] 0.5 mg/dL Normal 0.0-1.1 [facility] Comment on above: Performed By: #### 2 093723, 0378568, 31496447, 6219609, 7394273, 27492811, 6364225, 5601929 ####[place] [address] [place] [address] Globulin (S) [Mass/Vol] 3.1 g/dL Normal 1.4-4.0 [facility] Comment on above: Performed By: #### 2 493718, 4392670, 68445538, 1876643, 8438414, 90902813, 1215300, 5311546 ####[facility] [address] [place] [address] Protein [Mass/Vol] 7.7 g/dL Normal 6.0-7.8 [facility] Comment on above: Performed By: #### 2 661935, 7750259, 95443186, 5346625, 1535120, 10047231, 2586337, 3232073 ####[facility] [address] [place] [address] Bilirubin.direct [Mass/Vol] mg/dL Normal 0.1-0.4 [facility] Comment on above: Performed By: #### 2 091066, 0830504, 03551164, 3991722, 1741326, 56481894, 0608792, 7715108 ####[facility] [address] [place] [address] Lipase Levelon 11-10-2022 Lipase [Catalytic activity/Vol] 28 U/L Normal 13-58 [facility] Comment on above: Performed By: #### 2 [id number], [id number], [id number], [id number], [id number], [id number], [id number], [id number] ####[facility] [address] [place] [address] Progress Note-Nurseon 2022 Progress Note-Nurse Patient brought back to ED 11 at this time from the waiting room Normal [facility] SEROLOGYOrdered By: Brittni choudhury on 11-10-2022 HCG.beta subunit (U) [Moles/Vol] Negative Normal [facility] Man Sero Troponin 0 Hr.on 11-10-2022 Troponin I.cardiac [Mass/Vol] ng/mL Low 10.10-27.10 [facility] Comment on above: Result Comment: The 95% CI (Confidence Interval) PPV (Positive Predictive Value) for myocardial infarction in females is 38 pg/mL, in males 51 pg/mL. The results should be used in conjunction with clinical conditions of myocardial infarction. (Access High Sensitivity Troponin I Instructions For Use, Richelle Penuelas, November 2017) Performed By: #### 2 [id number], [id number], [id number], [id number], 4207517, [id number], 1548241, [id number] ####[facility] [address] [place] [address] U BetaHcg Qualon 11-10-2022 HCG.beta subunit (U) [Moles/Vol] Negative Normal [facility] Comment on above: Performed By: #### 2 [id number] ####[address] [address] UA With Cult Reflexon 2022 Bilirubin Ql (U) Negative Normal Negative [facility] Comment on above: Performed By: #### 1 [id number] ####[address] [address] Clarity (U) CLEAR Normal Clear [facility] Comment on above: Performed By: #### 1 [id number] ####[address] [address] Color (U) YELLOW Normal Yellow [facility] Comment on above: Performed By: #### 1 [id number] ####[address] [address] Epithelial cells.squamous LM.HPF (Urine sed) [#/Area] 0-2 Normal 0-2 [facility] Comment on above: Performed By: #### 1 [id number] ####[address] [address] Glucose Test strip (U) [Mass/Vol] Negative Normal Negative [facility] Comment on above: Performed By: #### 1 [id number] ####[address] [address] Hemoglobin Ql (U) Negative Normal Negative [facility] Comment on above: Performed By: #### 1 [id number] ####[address] [address] Ketones (U) [Mass/Vol] Negative Normal Negative [facility] [place] Comment on above: Performed By: #### 1 [id number] ####[address] [place] [address] [place].plasma/[place]. RBC (Bld) [Mass ratio] 0-3 Normal 0-3 [facility] Comment on above: Performed By: #### 1 [id number] ####[address] [address] Nitrite Ql (U) Negative Normal Negative [facility] [place] [facility] Comment on above: Performed By: #### 1 [id number] ####[address] [address] pH (U) 6.0 [pH] Invalid Interpretation Code 5.0-9.0 [facility] Comment on above: Performed By: #### 1 [id number] ####[address] [address] Protein (U) [Mass/Vol] Negative Normal Negative [facility] [place] Comment on above: Performed By: #### 1 [id number] ####[address] [address] Specific gravity (U) [Rel density] 1.010 Invalid Interpretation Code 1.005-1.030 [facility] Comment on above: Performed By: #### 1 [id number] ####[address] [address] Type of Urine collection method Clean Catch Normal [facility] Comment on above: Performed By: #### 1 [id number] ####[address] [address] Urobilinogen Qn (U) 0.2 {Elizabeth'U}/dL Normal 0.0-1.0 [facility] Comment on above: Performed By: #### 1 [id number] ####[address] [address] WBC Auto Ql (U) Negative Normal Negative [facility] Comment on above: Performed By: #### 1 [id number] ####[address] [place] [address] WBC LM.HPF (Urine sed) [#/Area] 0-5 Normal 0-5 [facility] Comment on above: Performed By: #### 1 [id number] ####[facility] [address] [place] [address] URINALYSISOrdered By: Brittni Wren on 11-10-2022 Bilirubin [...] PM) Normal Negative [facility] UA Auto SS [place].plasma/[place]. RBC (Bld) [Mass ratio] 0-3 /HPF Normal [...] [facility] UA Auto SS Urobilinogen Qn (U) 0.9932400 {Elizabeth'U}/dL Normal 0.0 - 1.0 EU/dL [facility] UA Auto SS WBC Auto Ql (U) Negative (11/10/22 5:44 PM) Normal Negative [facility] UA Auto SS WBC LM.HPF (Urine sed) [#/Area] 0-5 /HPF Normal 0-5/HPF [facility] UA Auto SS eGFRon 11-10-2022 GFR/1.73 sq M.predicted among non-blacks MDRD (S/P/Bld) [Vol rate/Area] 105 mL/min/1.73 m2 Normal >=59 [facility] Comment on above: Order Comment: Order added by Discern Expert. Result Comment: Multifocal Button Inspector crystal kidney disease could be indicated at eGFR's of less than 60 mL/min/1.73m2. Kidney failure is indicated at less than 15 mL/min/1.73m2. Performed By: #### 2 [id number], [id number], [id number], 6464152, 9981745, [id number], [id number], 7505546 ####[facility] [address] [place] [address] Basophils Auto (Bld) [#/Vol] Ordered By: Phillip Shaw on 04-12-2022 Basophils (Bld) [#/Vol] 0.0 10*3/uL 0.0-0.2 [facility] Basophils/100 WBC Auto (Bld) Ordered By: Phillip Shaw on 04-12-2022 Basophils/100 WBC (Bld) 0.4 % . F [facility] Creatinine and Glomerular fi ltration rate.predicted panel (S/P/Bld)Ordered By: Phillip Shaw on 04-12-2022 Creatinine [Mass/Vol] 0.72 mg/dL 0.44-1.03 [facility] Eosinophils Auto (Bld) [#/Vo l]Ordered By: Phillip Shaw on 04-12-2022 Eosinophils (Bld) [#/Vol] 0.0 10*3/uL 0.0-0.45 [facility] Eosinophils/100 WBC Auto (Bl d)Ordered By: Phillip Shaw on 04-12-2022 Eosinophils/100 WBC (Bld) 0.1 % . [facility] Erythrocyte distribution wid th Auto (RBC) [Ratio]Ordered By: Phillip Shaw on 04-12-2022 Erythrocyte distribution width (RBC) [Ratio] 15.1 % 11.9-15.3 [facility] Estimated glomerular filtrat ion rate (GFR) non- AmericanOrdered By: Phillip Shaw on 04-12-2022 GFR/1.73 sq M.predicted among non-blacks MDRD (S/P/Bld) [Vol rate/Area] > 60 mL/Min [facility] Hematocrit Auto (Bld) [Volum e fraction]Ordered By: Phillip Shaw on 04-12-2022 Hematocrit (Bld) [Volume fraction] 37.6 % 34.0-46.4 [facility] Hemoglobin [Mass/volume] in BloodOrdered By: Phillip Shaw on 04-12-2022 Hemoglobin (Bld) [Mass/Vol] 12.4 g/dL 11.8-15.4 [facility] Laboratory - Chemistry and C hemistry - challengeOrdered By: Phillip Shaw on 04-12-2022 Natriuretic peptide B (Bld) [Mass/Vol] 34.0 pg/mL 5-100 [facility] Leukocytes [#/volume] correc charli for nucleated erythrocytes in Blood by Automated counOrdered By: Phillip Shaw on 04-12-2022 WBC corrected for nucl RBC Auto (Bld) [#/Vol] 11.1 10*3/uL 3.8-11.6 [facility] Lymphocytes Auto (Bld) [#/Vo l]Ordered By: Phillip Shaw on 04-12-2022 Lymphocytes (Bld) [#/Vol] 1.0 10*3/uL 1.00-4.8 [facility] Lymphocytes/100 WBC Auto (Bl d)Ordered By: Phillip Shaw on 04-12-2022 Lymphocytes/100 WBC (Bld) 9.1 % . [facility] MCH Auto (RBC) [Entitic mass ]Ordered By: Phillip Shaw on 04-12-2022 MCH (RBC) [Entitic mass] 28.8 pg 24.7-34.3 [facility] MCHC Auto (RBC) [Mass/Vol]Or dered By: Phillip Shaw on 04-12-2022 MCHC (RBC) [Mass/Vol] 32.9 g/dL 32.0-35.0 [facility] MCV Auto (RBC) [Entitic vol] Ordered By: Phillip Shaw on 04-12-2022 MCV (RBC) [Entitic vol] 87.5 fL 80-100 [facility] Monocyte distribution width [Entitic volume] in Blood by AutomatedOrdered By: Phillip Shaw on 04-12-2022 Monocyte distribution width Auto (Bld) [Entitic vol] 22.31 % 0.00-20.00 [facility] Comment on above: For adults in ED, MD W > 20.0 may be associated with a higher risk of sepsis during the first 12 hrs of hospital admission Monocytes Auto (Bld) [#/Vol] Ordered By: Phillip Shaw on 04-12-2022 Monocytes (Bld) [#/Vol] 1.1 10*3/uL 0.0-0.8 [facility] Monocytes/100 WBC Auto (Bld) Ordered By: Phillip Shaw on 04-12-2022 Monocytes/100 WBC (Bld) 10.3 % . [facility] Neutrophils Auto (Bld) [#/Vo l]Ordered By: Phillip Shaw on 04-12-2022 Neutrophils (Bld) [#/Vol] 8.9 10*3/uL 1.8-7.7 [facility] Neutrophils/100 WBC Auto (Bl d)Ordered By: Phillip Shaw on 04-12-2022 Neutrophils/100 WBC (Bld) 80.1 % . [facility] No Panel InformationOrdered By: Phillip Shaw on 04-12-2022 D-Dimer Quantitative (PE/DVT) < 200 ng/mL 0-243 [facility] Comment on above: The reference range for [...] conditions. Estimated GFR () > 60 mL/Min [facility] Comment on above: GFR estimated refere nce range: According to KDOQI guidelines, <60 ml/min/1.73m2 is sufficient to diagnose a patient with chronic kidney disease. Pharmacy Creatinine Clearance (Chem 117.02 [facility] Nucleated erythrocytes [Pres ence] in Blood by Automated countOrdered By: Phillip Shaw on 04-12-2022 Nucleated RBC Auto Ql (Bld) 0.1 /100{WBC} 0-0.5 [facility] Platelet mean volume Auto (B ld) [Entitic vol]Ordered By: Phillip Shaw on 04-12-2022 Platelet mean volume (Bld) [Entitic vol] 11.4 fL 6.3-10.7 [facility] Platelets Auto (Bld) [#/Vol] Ordered By: Phillip Shaw on 04-12-2022 Platelets (Bld) [#/Vol] 181 10*3/uL 150-450 [facility] RBC Auto (Bld) [#/Vol]Ordere d By: Phillip Shaw on 04-12-2022 RBC (Bld) [#/Vol] 4.30 10*6/uL 3.60-5.00 [facility] Serum or plasma anion gap de terminationOrdered By: Phillip Shaw on 04-12-2022 Anion gap [Moles/Vol] 13.1 mmol/L 6.0-15.0 [facility] Serum or plasma calcium oliver urement (mass/volume)Ordered By: Phillip Shaw on 04-12-2022 Calcium [Mass/Vol] 8.9 mg/dL 8.2-10.2 [facility] Serum or plasma chloride jeanne surement (moles/volume)Ordered By: Phillip Shaw on 04-12-2022 Chloride [Moles/Vol] 101 mmol/L 95-114 [facility] Serum or plasma glucose oliver urement (mass/volume)Ordered By: Phillip Shaw on 04-12-2022 Glucose [Mass/Vol] 108 mg/dL 70-100 [facility] Comment on above: ADA recommended refe rence rangeRandom Glucose Reference Range is dependent on time and content of last meal. Glucose of more than 200 mg/dL in a nonstressed, ambulatory subject supports the diagnosis of Diabetes Mellitus. Serum or plasma potassium me asurement (moles/volume)Ordered By: Phillip Shaw on 04-12-2022 Potassium [Moles/Vol] 3.8 mmol/L 3.5-5.1 [facility] Serum or plasma sodium measu rement (moles/volume)Ordered By: Phillip Shaw on 04-12-2022 Sodium [Moles/Vol] 133 mmol/L 136-146 [facility] Serum or plasma total carbon dioxide measurement (moles/volume)Ordered By: Phillip Shaw on 04-12-2022 CO2 [Moles/Vol] 22.7 mmol/L 22.0-30.0 [facility] Serum or plasma urea nitroge n measurement (mass/volume)Ordered By: Phillip Shaw on 04-12-2022 Urea nitrogen [Mass/Vol] 7 mg/dL 9-23 [facility] Troponin I.cardiac [Mass/vol ume] in Serum or Plasma by High sensitivity methodOrdered By: Phillip Shaw on 04-12-2022 Troponin I.cardiac High sensitivity method [Mass/Vol] 5 pg/mL 0-15 [facility] WBC Auto (Bld) [#/Vol]Ordere d By: Phillip Shaw on 04-12-2022 WBC (Bld) [#/Vol] 11.1 10*3/uL 3.8-11.6 [facility] COVID CepheidOrdered By: Twyla Rea on 04-07-2022 SARS-CoV-2 (COVID-19) Ab IA Ql Negative Negative [facility] Comment on above: This is a duplicate Cepheid Xpert Xpress CoV-2/Flu/RSV Plus RNA by RT-PCR result to be used for statistical tracking purpose only. SARS-CoV-2 (COVID-19) RNA BARBI+probe Ql (Unsp spec) [facility] XR Spine Lumbar 4+ Views*on 08-21-2021 XR [...] signed by JOVITA MA on 08/21/2021 1223 [facility] HNO ID: [id number] Author: RT Kristin(R) Service: Radiology Author Type: Financial Consultant Type: Allied Health Filed: 10/04/2020 10:48 AM [...] RT Kristin(R) October 04, 2020 10:26 AM [facility] HNO ID: [id number] Author: RT Kristin(R) Service: Radiology Author Type: Financial Consultant Type: Allied Health Filed: 10/04/2020 9:27 AM Note Text: Waiting for HCG results to come back before performing exam Bing Killian(R) [facility] ED NOTEon 10-04-2020 ED NOTE HNO ID: [id number] Author: Samara Orozco RN Service: ? Author [...] ambulated with steady gait out of ED. [facility] ED NOTE HNO ID: [id number] Author: Samara Orozco RN Service: ? Author Type: Registered Nurse Type: ED Notes Filed: 10/04/2020 11:38 AM Note Text: Pt resting comfortably in bed. Comfort measures offered. Call light within reach. No distress noted at this time. Safety maintained and will continue to monitor patient. [facility] ED NOTE HNO ID: [id number] Author: Samara Orozco RN Service: ? Author Type: Registered Nurse Type: ED Notes Filed: 10/04/2020 11:38 AM Note Text: Pt resting comfortably in bed. Comfort measures offered. Call light within reach. No distress noted at this time. Safety maintained and will continue to monitor patient. [facility] ED NOTE HNO ID: [id number] Author: Akin Mcclain RN Service: ? Author Type: Registered Nurse Type: ED Notes Filed: 10/04/2020 9:21 AM Note Text: PO fluids provided [facility] ED NOTE HNO ID: [id number] Author: Akin Mcclain RN Service: ? Author [...] head or LOC. +MSP; gate is steady. [facility] ED PROV NOTEon 10-04-2020 ED PROV NOTE HNO ID: [id number] Author: Al Castellanos MD Service: Emergency Medicine [...] IV drug use. History provided by: Patient avp used: No History reviewed. No pertinent past [...] at 10/05/19 (more content not included)... Normal [facility] HCG Qual, Urineon 10-04-2020 Beta HCG ( test) Ql (U) Negative Normal Negative [facility] Comment on above: Performed By: #### U HCG #### [facility] [address] [place] [address] XR FEMUR 2V AP/LAT RTon 09-11 XR [...] No acute bone or joint space abnormality. Line Servicer: PSCB Transcribe Date/Time: Oct 04 2020 10:50A Dictated by : Anca MACKENZIE MD This examination was interpreted and the report reviewed and electronically signed by: Anca MACKENZIE MD on Oct 04 2020 10:55AM EST [id number] N [facility] XR LUMBAR 3V AP/LAT/L5-S1on 10-04-2020 XR [...] vertebrae. Anatomic Variant: Transitional L5 vertebral body. Line Servicer: PSCB Transcribe Date/Time: Oct 04 2020 10:56A Dictated by : Anca MACKENZIE MD This examination was interpreted and the report reviewed and electronically signed by: Anca MACKEZNIE MD on Oct 04 2020 10:58AM EST [id number] N [facility] XR PELVIS 1V APon 10-04-2020 XR [...] No acute bone or joint space abnormality. Line Servicer: ROSA Transcribe Date/Time: Oct 04 2020 10:50A Dictated by : Anca MACKENZIE MD This examination was interpreted and the report reviewed and electronically signed by: Anca MACKENZIE MD on Oct 04 2020 10:55AM EST [id number] Normal [facility] CHEST 1 VIEWon 10-01-2020 CHEST 1 VIEW Patient Name: MAURY COLLAZO STUDY: CHEST 1 VIEW; 10/01/2020 7:54 am INDICATION: cough. COMPARISON: None. ACCESSION NUMBER(S): [id number] ORDERING CLINICIAN: ERON JONES TECHNIQUE: A portable [...] Electronically signed by: LARS DAMICO MD Normal [facility] CORONAVIRUS 2019 BY PCRon SARS-CoV-2 (COVID-19) RNA BARBI+probe Ql (Unsp spec) Not detected Normal Not Detected [facility] Comment on above: Result Comment: . This assay is designed to detect the RdRp gene of SARS-CoV-2 via nucleic acid amplification. A Not Detected result does not preclude COVID-19 infection since the adequacy of sample collection and/or low viral burden may result in presence of viral nucleic acids below the clinical sensitivity of this test method. Fact sheet for providers: www.fda.gov/media/894570/download Fact sheet for patients: www.fda.gov/media/297548/download This test has received FDA Emergency Use Authorization (EUA) and has been verified by [facility] ([facility] This test is only authorized for the duration of time that circumstances exist to justify the authorization of the emergency use of in vitro diagnostic tests for the detection of SARS-CoV-2 virus and/or diagnosis of COVID-19 infection under section 564(b)(1) of the Act, 21 U.S.C. 360bbb-3(b)(1), unless the authorization is terminated or revoked sooner. [facility] is certified under CLIA-88 as qualified to perform high complexity testing. Testing is performed in the [facility] laboratory located at [address] [place] [address]. Performed By: #### C OV19 #### [address] [id number] DATE OF SYMPTOM ONSET [YYYYMMDD]? [id number] Normal [facility] Comment on above: Performed By: #### C OV19 #### [address] [id number] Lab Specimen Source Nasal, Nasopharyngeal Normal [facility] Comment on above: Performed By: #### C OV19 #### [address] [id number] Covid 19 Resultson 1 SARS-CoV-2 (COVID-19) RNA [...] You may also be contacted by the [facility] to see if any of [...] or Naproxen (Aleve) can also be used. Fwxa-upg-cgwhkdn cough and cold medicines can be used according to the instructions on the package. Some oorp-tqt-vfsqchz medicines also contain acetaminophen. 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 Avoid touching your eyes, nose, and mouth [...] 24 reginald (more content not included)... Normal [facility] Provider Note - ED v2on [...] As Needed SIGNIFICANT EVENTS: No documented data. ACCOUNTS PAYABLE LEAD: Is : no(1) Is : no(1) REVIEW [...] SIGNS: T PRBP SpO2O2(LPM) %FiO2 Method 01-Oct-2020 07:27:[id number] 98 room air, no respiratory support PHYSICAL [...] not at (more content not included)... Normal [facility] Risk Screen - Adult Emergenc [...] demonstration; verbal instruction Cultural Considerationsnone Developmental Considerationsnone Yazidism Considerationsnone Learning Assessment (Other Learner): Learning Assessment [...] injured patient at a Trauma Center ([facility]/[place]/[facility]/[place]): no Electronic Signatures: Hailey Shepard (STAFF N) (Signed 01-Oct-2020 07:27) Authored: Preferred Language, Advanced Directives, Family Violence Adult, Learning Assessment (Patient), Learning Assessment (Other Learner), Pressure Injury/TB/Substance, Pressure Injury, CAGE Last Updated: 01-Oct-2020 07:27 by Hailey Shepard (STAFF N) Normal [facility] Triage - EDon 10-01-2020 Triage [...] Accompanied By: self Language: Spoken Language Preferred: Telugu Reading Language Preferred: Telugu Stiff Leg Operator Requested: no control manager was requested MDRO: History of MDRO: [...] 07:32 by Hailey Shepard (STAFF N) Normal [facility] CBC AUTO DIFFon 09-10-2018 Basophils #/vol (Bld) 0.0 103/ul Normal 0.0-0.1 [facility] Comment on above: Performed By: #### C BC #### [facility] [address] [address] Dianne Mame Basophils/100 WBC (Bld) 0.4 % Normal 0.2-2.0 [facility] Comment on above: Performed By: #### C BC #### [facility] [address] [place] [address] Dianne Mame Eosinophils #/vol (Bld) 0.0 103/ul Normal 0.0-0.7 [facility] Comment on above: Performed By: #### C BC #### [facility] [address] [place] [address] Dianne Timmonsen Eosinophils/100 WBC (Bld) 0.4 % Critically low 0.9-7.0 [facility] Comment on above: Performed By: #### C BC #### [facility] [address] [place] [address] Dianne Vilchis Erythrocyte distribution width Ratio (RBC) 12.9 % Normal 11.0-15.0 [facility] Comment on above: Performed By: #### C BC #### [facility] [address] [place] [address] Dianne Vilchis Hematocrit Volume Fraction (Bld) 38.9 % Normal 36.0-48.0 [facility] Comment on above: Performed By: #### C BC #### [facility] [address] [place] [address] Dianne Vilchis Hemoglobin mass conc (Bld) 13.4 g/dL Normal 12.0-16.0 [facility] Comment on above: Performed By: #### C BC #### [facility] [address] [place] [address] Dianne Vilchis IG # 0.03 10e3/ul Normal 0.00-0.03 [facility] Comment on above: Performed By: #### C BC #### [facility] [address] [id number] Dianne Mame IG % 0.3 % Normal 0.0-0.5 [facility] Comment on above: Performed By: #### C BC #### [facility] [address] [place] [address] Dianne Mame Lymphocytes #/vol (Bld) 2.1 103/ul Normal 1.2-3.8 [facility] Comment on above: Performed By: #### C BC #### [facility] [address] [place] [address] Dianne Mame Lymphocytes/100 WBC (Bld) 20.3 % Critically low 20.5-60.0 [facility] Comment on above: Performed By: #### C BC #### [facility] [address] [place] [address] Dianne Vilchis MANUAL DIFF REQ NO Normal [facility] Comment on above: Performed By: #### C BC #### [facility] [address] [place], [place] [id number] Dianneisidro Vilchis MCH Entitic mass (RBC) 30.4 pg Normal 26.7-34.0 [facility] Comment on above: Performed By: #### C BC #### [facility] [address] [place] [address] Dianne Vilchis MCHC mass conc (RBC) 34.4 g/dL Normal 29.9-35.2 [facility] Comment on above: Performed By: #### C BC #### [facility] [address] [place], [place] [id number] Dianneisidro Vilchis MCV Entitic volume (RBC) 88.2 fL Normal 81.0-99.0 [facility] Comment on above: Performed By: #### C BC #### [facility] [address] [place] [address] Dianne Mame Monocytes #/vol (Bld) 0.6 103/ul Normal 0.3-0.8 [facility] Comment on above: Performed By: #### C BC #### [facility] [address] [place], [place] [address] Dianne Mame Monocytes/100 WBC (Bld) 5.7 % Normal 1.7-12.0 [facility] Comment on above: Performed By: #### C BC #### [facility] [address] [place], [place] [address] Dianne Mame Neutrophils #/vol (Bld) 7.4 103/ul Critically high 1.4-6.5 [facility] Comment on above: Performed By: #### C BC #### [facility] [address] [place], [place] [address] Dianne Mame Neutrophils/100 WBC (Bld) 72.9 % Normal 43.0-75.0 [facility] Comment on above: Performed By: #### C BC #### [facility] [address] [place], [place] [address] Dianne Mame Platelet mean volume Entitic volume (Bld) 12.5 fL Normal 9.5-13.5 [facility] Comment on above: Performed By: #### C BC #### [facility] [address] [place], [place] [address] Dianne Mame Platelets #/vol (Bld) 192 103/ul Normal 150-450 [facility] Comment on above: Performed By: #### C BC #### [facility] [address] [place], [place] [address] Dianne Mame RBC #/vol (Bld) 4.41 106/ul Normal 4.20-5.40 [facility] Comment on above: Performed By: #### C BC #### [facility] [address] [place], [place] [address] Dianne Mame WBC #/vol (Bld) 10.1 103/ul Normal 4.0-11.0 [facility] Comment on above: Performed By: #### C BC #### [facility] [address] [place], [place] [address] Dianne Mame ER URINE PROFILEon 9 Bilirubin mass conc SMALL Normal NEGATIVE [facility] Comment on above: Performed By: #### E RUR #### [facility] [address] [place] [address] Dianne Mame BLOOD Negative Normal NEGATIVE [facility] Comment on above: Performed By: #### E RUR #### [facility] [address] [place], [place] [id number] Dianneisidro Vilchis Clarity Nom (U) CLEAR Normal [facility] Comment on above: Performed By: #### E RUR #### [facility] [address] [place] [address] Dianne Mame Color Nom (U) YELLOW Normal YELLOW [facility] Comment on above: Performed By: #### E RUR #### [facility] [address] [place], [place] [id number] Dianneisidro Vilchis ERUAHD A micrscopic examination will be performed if indicated. Normal [facility] Comment on above: Performed By: #### E RUR #### [facility] [address] [place] [address] Dianne Mame Glucose mass conc Negative Normal NEGATIVE [facility] Comment on above: Performed By: #### E RUR #### [facility] [address] [place] [address] Dianne Mame Ketones Ql (U) >=80 Normal NEGATIVE [facility] Comment on above: Performed By: #### E RUR #### [facility] [address] [place] [address] Dianne Mame Nitrite Ql (U) Negative Normal NEGATIVE [facility] Comment on above: Performed By: #### E RUR #### [facility] [address] [place] [address] Dianne Mame pH (Bld) 6.0 Normal 5-9 [facility] Comment on above: Performed By: #### E RUR #### [facility] [address] [place] [address] Dianne Mame Protein mass conc (U) TRACE Normal [facility] Comment on above: Performed By: #### E RUR #### [facility] [address] [place] [address] Dianne Mame SPEC GRAVITY 1.025 Normal 1.005-<=1.02 5 [facility] Comment on above: Performed By: #### E RUR #### [facility] [address] [place], [place] [id number] Dianne Vilchis UR MICRO IND NOT INDICATED Normal [facility] Comment on above: Performed By: #### E RUR #### [facility] [address] [place], [place] [id number] Dianne Vilchis Urobilinogen Qn (U) 0.2 EU/dl Normal [facility] Comment on above: Performed By: #### E RUR #### [facility] [address] [place] [address] Dianne Vilchis WBC #/vol (Bld) Negative Normal NEGATIVE [facility] Comment on above: Performed By: #### E RUR #### [facility] [address] [place] [address] Dianne Vilchis PROF 14(COMP METB)on 019 Albumin mass conc 3.8 g/dL Normal 3.5-5.0 [facility] Comment on above: Performed By: #### C MP #### [facility] [address] [place], [place] [id number] Dianne Vilchis Albumin/Globulin mass ratio 1.0 {ratio} Normal [facility] Comment on above: Performed By: #### C MP #### [facility] [address] [place] [address] Dianneisidro Vilchis ALP enzyme act/vol 53 U/L Normal 38-126 [facility] Comment on above: Performed By: #### C MP #### [facility] [address] [place], [place] [id number] Dianne Vilchis ALT enzyme act/vol 25 U/L Normal 9-52 [facility] Comment on above: Performed By: #### C MP #### [facility] [address] [place] [address] Dianne Vilchis Anion gap molar conc 13.4 mmol/L Normal [facility] Comment on above: Performed By: #### C MP #### [facility] [address] [place], [place] [id number] Dianne Vilchis AST enzyme act/vol 17 U/L Normal 14-36 [facility] Comment on above: Performed By: #### C MP #### [facility] [address] [address] Dianne Vilchis Bilirubin Ql (U) 0.5 mg/dL Normal 0.2-1.3 [facility] Comment on above: Performed By: #### C MP #### [facility] [address] [address] Dianne Mame Calcium mass conc 9.6 mg/dL Normal 8.4-10.2 [facility] Comment on above: Performed By: #### C MP #### [facility] [address] [place] [address] Dianne Timmonsen Chloride molar conc 101 mmol/L Normal 98-107 [facility] Comment on above: Performed By: #### C MP #### [facility] [address] [place] [address] Dianneisidro Vilchis CO2 molar conc 24.1 mmol/L Normal 22.0-30.0 [facility] Comment on above: Performed By: #### C MP #### [facility] [address] [place] [address] Dianne Mame Creatinine mass conc 0.64 mg/dL Normal 0.52-1.04 [facility] Comment on above: Performed By: #### C MP #### [facility] [address] [place] [address] Dianne Mame EGFR-AF GIBRALTARIAN >60 Normal >=60 [facility] Comment on above: Performed By: #### C MP #### [facility] [address] [place] [address] Dianne Mame EGFR-NON AF GIBRALTARIAN >60 Normal >=60 [facility] Comment on above: Performed By: #### C MP #### [facility] [address] [place] [address] Dianne Mame Globulin mass conc (S) 3.9 g/dL Normal [facility] Comment on above: Performed By: #### C MP #### [facility] [address] [place], [place] [address] Dianne Timmonsen Glucose mass conc 76 mg/dL Normal 74-106 [facility] Comment on above: Performed By: #### C MP #### [facility] [address] [place], [place] [address] Dianne Vilchis Potassium molar conc 3.5 mmol/L Normal 3.4-5.0 [facility] Comment on above: Performed By: #### C MP #### [facility] [address] [id number] Dianne Mame Protein mass conc 7.7 g/dL Normal 6.1-8.2 [facility] Comment on above: Performed By: #### C MP #### [facility] [address] [id number] Dianne Timmonsen Sodium molar conc 135 mmol/L Critically low 137-145 [facility] Comment on above: Performed By: #### C MP #### [facility] [address] [id number] Dianneisidro Timmonsen Urea nitrogen mass conc 9.0 mg/dL Normal 6.4-19.3 [facility] Comment on above: Performed By: #### C MP #### [facility] [address] [id number] Dianne Mame Urea nitrogen/Creatinine mass ratio 14.1 mg/mg Normal [facility] Comment on above: Performed By: #### C MP #### [facility] [address] [place], [place] [address] Dianne Timmonsen Vital Signs Date Time Vital Sign Value Performing Clinician Jasoni lity 01-06-2024 19:53-0400 Body height 157.48 cm MD Miracle Padilla Work Phone: [facility] 01-06-2024 19:53-0400 Body temperature 98 [degF] MD Miracle Padilla Work Phone: [facility] 01-06-2024 19:53-0400 Body weight 69.1 kg MD Miracle Padilla Work Phone: [facility] 01-06-2024 19:53-0400 Diastolic blood pressure 71 mm[Hg] MD Miracle Padilla Work Phone: [facility] 01-06-2024 19:53-0400 Heart rate 90 /min MD Miracle Padilla Work Phone: [facility] 01-06-2024 19:53-0400 Respiratory rate 16 /min MD Miracle Padilla Work Phone: [facility] 01-06-2024 19:53-0400 SaO2% (BldA) [Mass fraction] 98 % MD Miracle Padilla Work Phone: [facility] 01-06-2024 19:53-0400 Systolic blood pressure 125 mm[Hg] MD Miracle Padilla Work Phone: [facility] 05-27-2023 11:20-0500 Body temperature 97.52 [degF] [facility] 05-27-2023 11:20-0500 Diastolic blood pressure 84 mm[Hg] [facility] 05-27-2023 11:20-0500 Heart rate 61 /min [facility] 05-27-2023 11:20-0500 Respiratory rate 20 /min [facility] 05-27-2023 11:20-0500 SaO2% (BldA) [Mass fraction] 99 % [facility] 05-27-2023 11:20-0500 Systolic blood pressure 124 mm[Hg] [facility] 05-26-2023 16:14-0500 Body mass index (BMI) [Ratio] 21.86 kg/m2 Bella Camara MD Work Phone: [facility] 05-26-2023 16:14-0500 Body temperature 98.6 [degF] Bella Camara MD Work Phone: [facility] 05-26-2023 16:14-0500 Body weight 67.13 kg Bella Camara MD Work Phone: [facility] 05-26-2023 16:14-0500 Diastolic blood pressure 78 mm[Hg] Bella Camara MD Work Phone: [facility] 05-26-2023 16:14-0500 Heart rate 71 /min Bella Camara MD Work Phone: [facility] 05-26-2023 16:14-0500 SaO2% (BldA) [Mass fraction] 100 % Bella Camara MD Work Phone: [facility] 05-26-2023 16:14-0500 Systolic blood pressure 118 mm[Hg] Bella Camara MD Work Phone: [facility] 05-24-2023 15:36-0500 Body height 175.3 cm Elisabet Giron SPOOLER [facility] 05-24-2023 15:36-0500 Body mass index (BMI) [Ratio] 21.86 kg/m2 Elisabet Peterr SPOOLER [facility] 05-24-2023 15:36-0500 Body temperature 98.4 [degF] Elisabetal Peterr SPOOLER [facility] 05-24-2023 15:36-0500 Body weight 67.13 kg Elisabet Peterr SPOOLER [facility] 05-24-2023 15:36-0500 Diastolic blood pressure 72 mm[Hg] Elisabet Hernandeziller SPOOLER [facility] 05-24-2023 15:36-0500 Heart rate 109 /min Elisabet Peterr SPOOLER [facility] 05-24-2023 15:36-0500 SaO2% (BldA) [Mass fraction] 99 % Elisabet Peterr SPOOLER [facility] 05-24-2023 15:36-0500 Systolic blood pressure 112 mm[Hg] Elisabet Hernandeziller SPOOLER [facility] 05-19-2023 14:22-0500 Body height 175.3 cm [facility] Work Phone: [facility] 05-19-2023 14:22-0500 Body mass index (BMI) [Ratio] 21.71 kg/m2 [facility] Work Phone: [facility] 05-19-2023 14:22-0500 Body temperature 97.59 [degF] Shala Conn PA Work Phone: [facility] 05-19-2023 14:22-0500 Body weight 66.68 kg Shala Chesterfield PA Work Phone: [facility] 05-17-2023 15:37-0500 Body height 175.3 cm Miracle Padilla MD Work Phone: [facility] 05-17-2023 15:37-0500 Body mass index (BMI) [Ratio] 21.56 kg/m2 Miracle Padilla MD Work Phone: [facility] 05-17-2023 15:37-0500 Body weight 66.22 kg Miracle Padilla MD Work Phone: [facility] 05-17-2023 15:37-0500 Diastolic blood pressure 70 mm[Hg] Miracle Padilla MD Work Phone: [facility] 05-17-2023 15:37-0500 Heart rate 71 /min Miracle Padilla MD Work Phone: [facility] 05-17-2023 15:37-0500 SaO2% (BldA) [Mass fraction] 98 % Miracle Padilla MD Work Phone: [facility] 05-17-2023 15:37-0500 Systolic blood pressure 112 mm[Hg] Miracle Padilla MD Work Phone: [facility] 05-12-2023 11:26-0500 Body height 175.3 cm Miracle Padilla MD Work Phone: [facility] 05-12-2023 11:26-0500 Body mass index (BMI) [Ratio] 21.71 kg/m2 Miracle Padilla MD Work Phone: [facility] 05-12-2023 11:26-0500 Body temperature 98.01 [degF] Miracle Padilla MD Work Phone: [facility] 05-12-2023 11:26-0500 Body weight 66.68 kg Miracle Padilla MD Work Phone: [facility] 05-12-2023 11:26-0500 Diastolic blood pressure 68 mm[Hg] Miracle Padilla MD Work Phone: [facility] 05-12-2023 11:26-0500 Heart rate 65 /min Miracle Padilla MD Work Phone: [facility] 05-12-2023 11:26-0500 SaO2% (BldA) [Mass fraction] 99 % Miracle Padilla MD Work Phone: [facility] 05-12-2023 11:26-0500 Systolic blood pressure 106 mm[Hg] Miracle Padilla MD Work Phone: [facility] 11-10-2022 19:03-0400 Diastolic blood pressure 89 mm[Hg] [facility] 11-10-2022 19:03-0400 Heart rate 53 /min [facility] 11-10-2022 19:03-0400 Mean blood pressure 99 mm[Hg] [facility] 11-10-2022 19:03-0400 Respiratory rate 16 /min [facility] 11-10-2022 19:03-0400 SaO2% (BldA) [Mass fraction] 99 % [facility] 11-10-2022 19:03-0400 Systolic blood pressure 120 mm[Hg] [facility] 11-10-2022 18:15-0400 Diastolic blood pressure 83 mm[Hg] [facility] 11-10-2022 18:15-0400 Heart rate 52 /min [facility] 11-10-2022 18:15-0400 Mean blood pressure 96 mm[Hg] [facility] 11-10-2022 18:15-0400 Respiratory rate 16 /min [facility] 11-10-2022 18:15-0400 SaO2% (BldA) [Mass fraction] 100 % [facility] 11-10-2022 18:15-0400 Systolic blood pressure 122 mm[Hg] [facility] 11-10-2022 17:16-0400 Diastolic blood pressure 80 mm[Hg] [facility] 11-10-2022 17:16-0400 Heart rate 57 /min [facility] 11-10-2022 17:16-0400 Mean blood pressure 93 mm[Hg] [facility] 11-10-2022 17:16-0400 Respiratory rate 16 /min [facility] 11-10-2022 17:16-0400 SaO2% (BldA) [Mass fraction] 100 % [facility] 11-10-2022 17:16-0400 Systolic blood pressure 119 mm[Hg] [facility] 11-10-2022 17:10-0400 Hourly Rounding [facility] 11-10-2022 17:10-0400 Promise to Return [facility] 11-10-2022 16:06-0400 Body temperature 97.88 [degF] [facility] 11-10-2022 16:06-0400 Heart rate 66 /min [facility] 11-10-2022 16:06-0400 Respiratory rate 16 /min [facility] 04-13-2022 00:12-0500 Diastolic blood pressure 61 mm[Hg] DO Phillip Petznick Work Phone: [facility] 04-13-2022 00:12-0500 Heart rate 75 /min DO Phillip Petznick Work Phone: [facility] 04-13-2022 00:12-0500 Respiratory rate 18 /min DO Phillip Petznick Work Phone: [facility] 04-13-2022 00:12-0500 SaO2% (BldA) [Mass fraction] 98 % DO Phillip Petznick Work Phone: 9(507)259-704217 [place] [address] 04-13-2022 00:12-0500 Systolic blood pressure 120 mm[Hg] DO Phillip Petznick Work Phone: 1(048)075-161227 [address] 04-12-2022 22:49-0500 Body height 175.26 cm DO Phillip Petznick Work Phone: 1(563)700-238527 [address] 04-12-2022 22:49-0500 Body temperature 101.4 [degF] DO Phillip Petznick Work Phone: 3(799)644-658227 [address] 04-12-2022 22:49-0500 Body weight 61 kg DO Phillip Petznick Work Phone: 9(543)818-204673 [place] [address] 04-07-2022 23:14-0500 Body height 175.26 cm DO Phillip Petznick Work Phone: 0(050)908-130773 [place] [address] 04-07-2022 23:14-0500 Body temperature 98.7 [degF] DO Phillip Petznick Work Phone: 5(537)776-924027 [address] 04-07-2022 23:14-0500 Body weight 69 kg DO Phillip Petznick Work Phone: 5(052)758-930173 [place] [address] 04-07-2022 23:14-0500 Diastolic blood pressure 67 mm[Hg] DO Phillip Petznick Work Phone: 5(274)785-673717 [place] [address] 04-07-2022 23:14-0500 Heart rate 110 /min DO Phillip Petznick Work Phone: 7(862)160-145617 [place] [address] 04-07-2022 23:14-0500 Respiratory rate 16 /min DO Phillip Petznick Work Phone: 7(420)510-313973 [place] [address] 04-07-2022 23:14-0500 SaO2% (BldA) [Mass fraction] 99 % DO Phillip Petznick Work Phone: 1(345)007-302927 [address] 04-07-2022 23:14-0500 Systolic blood pressure 112 mm[Hg] DO Phillip Petznick Work Phone: [facility] Encounters Encounter Date Encounter Type Care Provider Facility Start: 05-24-2024 End: 05-25-2024 Clinisync Result Encounter Marilyn Foleyerly SPOOLER Work Phone: [facility] Unsolicited Start: 05-24-2024 End: 05-25-2024 Clinisync Result Encounter Marilyn Smith SPOOLER Work Phone: [facility] Unsolicited Start: 01-07-2024 End: 01-07-2024 Telephone encounter Bella Camara MD Work Phone: [facility] Comment on above: ER Follow-up Start: 01-06-2024 End: 01-06-2024 Emergency department patient visit MD Miracle Padilla Work Phone: [facility] Work Phone: Start: 01-05-2024 End: [...] Start: 10-07-2023 End: 10-07-2023 ambulatory ASHLIE CRANE Facility:[facility] Start: 10-07-2023 End: 10-07-2023 Patient encounter procedure ASHLIE CRANE [facility] Start: 09-30-2023 End: 09-30-2023 ambulatory ABIGAIL [...] 05-27-2023 End: 05-27-2023 [facility] Start: 05-26-2023 End: 05-26-2023 Patient encounter procedure [...] 05-24-2023 Patient encounter procedure Elisabet A Donnamiller SPOOLER [facility] Comment on above: Nasal injury, initia l encounter (Primary Dx); Generalized headache; BMI 21.0-21.9, adult Start: 05-24-2023 End: 05-24-2023 ambulatory ELISABET A DONNAMILLER Not Available Start: 05-24-2023 Bamboo flowsheet Elisabet grajedar [facility]POOLER [facility] Start: 05-24-2023 Bamboo flowsheet Elisabet coburn [facility]POOLER [facility] Start: 05-19-2023 End: 05-19-2023 [...] Start: 03-26-2023 End: 03-26-2023 ambulatory Grabiel Luna Facility:[facility] Start: 03-17-2023 End: 03-17-2023 ambulatory BELLA M HOA Not Available Start: 03-02-2023 End: 03-02-2023 ambulatory ELISABET GIRON Not Available Start: 02-26-2023 End: 02-26-2023 ambulatory GRAZYNA GONZALEZ Not Available Start: 11-10-2022 End: 11-10-2022 Emergency department patient visit Michael Hannah [facility] Start: 04-12-2022 End: 04-13-2022 Emergency department patient visit DO Phillip Tripp Work Phone: [facility] Work Phone: Start: 04-07-2022 End: 04-08-2022 Emergency department patient visit DO Phillip Tripp Work Phone: [facility] Work Phone: Start: 09-10-2018 End: 09-10-2018 Patient encounter procedure [facility] Facility: Procedures Date Procedure Procedure Detail Performing Clinician Start: 05-24-2024 HEPATITIS B SURF AB QUANT Marilyn Smith SPOOLER Work Phone: Start: 05-24-2024 MEASLES/MUMPS/RUBELL A IMMUNITY Marilyn Smith SPOOLER Work Phone: Start: 05-24-2024 VARICELLA-ZOSTER V AB, IGG Marilyn Smith SPOOLER Work Phone: Start: 05-19-2023 End: 05-19-2023 Radex spine lumbosacral minimum 4 views Shala TOPETE Work Phone: Start: 04-07-2022 SARS-CoV-2, Influenz a & RSV (PCR) DO Phillip Englanddutch Work Phone: Plan of Treatment Date Care Activity Detail Author Start: 02-15-2024 End: 02-15-2024 Patient encounter procedure 02/15/2024 8:00 AM EST Office Visit [facility] [address] [place] [id number] Miracle Padilla MD [address] [place] [id number] [facility] Start: 01-18-2024 End: 01-18-2024 Patient encounter procedure 01/18/2024 1:30 PM EDT Office Visit [facility] [address] [place] [phone] Miracle Padilla MD [address] [place] [id number] [facility] Start: 12-12-2023 Influenza vaccination Influenz a Vaccine (#1) [facility] Start: 06-11-2023 End: 06-11-2023 ambulatory 06/11/2023 3:30 PM EST Treatment [facility] [address] [place] [phone] Shelly Scott, PT [address] [place] [address] [facility] Start: 06-04-2023 End: 06-04-2023 ambulatory 06/04/2023 4:15 PM EST Treatment [facility] [address] [place] [phone] Shelly Scott, PT [address] [place] [address] [facility] Start: 05-25-2023 End: 05-25-2023 ambulatory [facility] Comment on above: It band syndrome, ri ght; Trochanteric bursitis of right hip Start: 05-24-2023 End: 05-24-2023 Patient encounter procedure 05/24/2023 3:30 PM EST Office Visit [facility] [place] [address] [place] [phone] Elisabet Giron NP Arrived [facility] Comment on above: Arrived Start: 04-12-2022 Plain chest X-ray XR chest 1V portab le [facility] Start: 04-12-2022 XR Chest Single view [facility] Patient Education [facility] Work Phone: Patient referral [facility] Work Phone: Immunizations Immunization Date Immunization Notes Care Provider Paz castanon 02-19-2023 influenza, injectabl e, quadrivalent, contains preservative [facility] Work Phone: [facility] 02-19-2023 influenza virus vaccine, unspecified formulation Miracle Padilla MD Work Phone: [facility] 01-15-2020 influenza, injectabl e, quadrivalent, preservative free [facility] Work Phone: [facility] 01-26-2019 influenza, injectabl e, quadrivalent, preservative free [facility] Work Phone: [facility] 01-26-2019 tetanus toxoid, redu baltazar diphtheria toxoid, and acellular pertussis vaccine, adsorbed [facility] Work Phone: [facility] 06-21-2018 tetanus toxoid, redu baltazar diphtheria toxoid, and acellular pertussis vaccine, adsorbed [facility] 06-06-2018 influenza, injectabl e, quadrivalent, preservative free [facility] 01-22-2011 influenza, seasonal, injectable, preservative free [facility] Work Phone: [facility] 01-22-2011 meningococcal polysaccharide (groups A, C, Y and W-135) diphtheria toxoid conjugate vaccine (MCV4P) [facility] Work Phone: [facility] 01-22-2011 tetanus toxoid, redu baltazar diphtheria toxoid, and acellular pertussis vaccine, adsorbed [facility] Work Phone: [facility] 02-16-2009 novel [id number], preservative-free, injectable [facility] Work Phone: [facility] 01-30-2009 influenza virus vaccine, live, attenuated, for intranasal use [facility] Work Phone: [facility] 02-03-2008 influenza, seasonal, injectable [facility] Work Phone: [facility] 03-01-2007 influenza virus vaccine, whole virus [facility] Work Phone: [facility] 07-24-2003 diphtheria, tetanus toxoids and acellular pertussis vaccine [facility] Work Phone: [facility] 07-24-2003 measles, mumps and rubella virus vaccine [facility] Work Phone: [facility] 07-24-2003 poliovirus vaccine, inactivated [facility] Work Phone: [facility] 03-22-2003 influenza, seasonal, injectable [facility] Work Phone: [facility] 09-30-2000 pneumococcal conjuga te vaccine, 7 valent [facility] Work Phone: [facility] 04-08-2000 influenza, seasonal, injectable [facility] Work Phone: [facility] 02-12-2000 influenza virus vaccine, whole virus [facility] Work Phone: [facility] [facility] 10[facility]1999 diphtheria, tetanus toxoids and acellular pertussis vaccine, unspecified formulation [facility] Work Phone: [facility] 10-17-1999 haemophilus influenz ae type b vaccine, conjugate unspecified formulation [facility] Work Phone: [facility] 10-17-1999 measles, mumps and rubella virus vaccine [facility] Work Phone: [facility] 05-14-1999 poliovirus vaccine, inactivated [facility] Work Phone: [facility] 04-10-1999 diphtheria, tetanus toxoids and acellular pertussis vaccine, unspecified formulation [facility] Work Phone: [facility] 04-10-1999 haemophilus influenz ae type b vaccine, conjugate unspecified formulation [facility] Work Phone: [facility] 04-10-1999 hepatitis B vaccine, pediatric or pediatric/adolescent dosage [facility] Work Phone: [facility] 04-10-1999 trivalent poliovirus vaccine, live, oral [facility] Work Phone: [facility] 01-29-1999 diphtheria, tetanus toxoids and acellular pertussis vaccine, unspecified formulation [facility] Work Phone: [facility] 01-29-1999 haemophilus influenz ae type b vaccine, conjugate unspecified formulation [facility] Work Phone: [facility] 01-29-1999 poliovirus vaccine, inactivated [facility] Work Phone: [facility] 1998 diphtheria, tetanus toxoids and acellular pertussis vaccine, unspecified formulation [facility] Work Phone: [facility] 1998 haemophilus influenz ae type b vaccine, conjugate unspecified formulation [facility] Work Phone: [facility] 1998 hepatitis B vaccine, pediatric or pediatric/adolescent dosage [facility] Work Phone: [facility] 1998 poliovirus vaccine, inactivated [facility] Work Phone: [facility] 1998 hepatitis B vaccine, pediatric or pediatric/adolescent dosage [facility] Work Phone: [facility] NEGATED: Highlighted row has not occurred!03-03-2019 tetanus toxoid, reduced diphtheria toxoid, and acellular pertussis vaccine, adsorbed DO Phillip Tripp Work Phone: [facility] Payers Date Payer Category Payer Self-pay [id number] [address] [employer] [id number] 2022-Present [address] [place] [address] [id number] 1998 Unknown [id number] 2.16.840.1.999488.3.579.2 .593 1998 Unknown [id number] 2.16.840.1.335537.3.579.2 .727 1998 Unknown [id number] 2.16.840.1.017753.3.579.2 .727 1998 Unknown [id number] 2.16.840.1.296932.3.579.2 .727 1998 Unknown [id number] 2.16.840.1.962970.3.579.2 .1258 1998 Unknown [id number] 2.16.840.1.935262.3.579.2 .1258 1998 Unknown [id number] 2.16.840.1.962404.3.579.2 .1258 1998 Unknown [id number] 2.16.840.1.281952.3.579.2 .1258 1998 Unknown [id number] 2.16.840.1.746009.3.579.2 .1258 1998 Unknown [id number] 2.16.840.1.772087.3.579.2 .1258 1998 Unknown [id number] 2.16.840.1.523560.3.579.2 .1258 1998 Unknown [id number] 2.16.840.1.499099.3.579.2 .1258 1998 Unknown [id number] 2.16.840.1.499431.3.579.2 .1258 1998 Unknown [id number] 2.16.840.1.333553.3.579.2 .1258 1998 Unknown [id number] 2.16.840.1.502810.3.579.2 .1258 1998 Unknown [id number] 2.16.840.1.058899.3.579.2 .1258 1998 Unknown [id number] 2.16.840.1.631701.3.579.2 .1258 1998 Unknown [id number] 2.16.840.1.370948.3.579.2 .1258 1998 Unknown [id number] 2.16.840.1.256091.3.579.2 .9 1998 Unknown [id number] 2.16.840.1.123068.3.579.2 .1258 1998 Unknown [id number] 2.16.840.1.330886.3.579.2 .1258 1998 Unknown [id number] 2.16.840.1.052487.3.579.2 .1258 1998 Unknown [id number] 2.16.840.1.326492.3.579.2 .1258 1998 Unknown [id number] 2.16.840.1.831261.3.579.2 .1258 1998 Unknown [id number] 2.16.840.1.844845.3.579.2 .1258 1998 Unknown [id number] 2.16.840.1.486280.3.579.2 .1258 1998 Unknown [id number] 2.16.840.1.772511.3.579.2 .1258 1998 Unknown [id number] 2.16.840.1.334063.3.579.2 .1258 1998 Unknown [id number] 2.16.840.1.585170.3.579.2 .1258 1998 Unknown [id number] 2.16.840.1.591389.3.579.2 .1258 1998 Unknown [id number] 2.16.840.1.998958.3.579.2 .1258 1998 Unknown [id number] 2.16.840.1.217271.3.579.2 .1258 1998 Unknown [id number] 2.16.840.1.274538.3.579.2 .1258 1998 Unknown [id number] 2.16.840.1.902191.3.579.2 .1258 1998 Unknown [id number] 2.16.840.1.647627.3.579.2 .1258 1998 Unknown [id number] 2.16.840.1.248358.3.579.2 .1258 1998 Unknown [id number] 2.16.840.1.061639.3.579.2 .1258 1998 Unknown [id number] 2.16.840.1.993015.3.579.2 .1258 1998 Unknown [id number] 2.16.840.1.312980.3.579.2 .1258 1998 Unknown [id number] 2.16.840.1.206509.3.579.2 .1258 1998 Unknown [id number] 2.16.840.1.302285.3.579.2 .1258 1998 Unknown [id number] 2.16.840.1.515606.3.579.2 .1258 1998 Unknown [id number] 2.16.840.1.067218.3.579.2 .1258 1998 Unknown [id number] 2.16.840.1.835832.3.579.2 .1258 1998 Unknown [id number] 2.16.840.1.211891.3.579.2 .1258 1998 Unknown [id number] 2.16.840.1.259661.3.579.2 .1258 1998 Unknown [id number] 2.16.840.1.482937.3.579.2 .1258 1998 Unknown [id number] 2.16.840.1.059005.3.579.2 .1258 1998 Unknown [id number] 2.16.840.1.392856.3.579.2 .1258 1998 Unknown [id number] 2.16.840.1.849336.3.579.2 .1258 1998 Unknown [id number] 2.16.840.1.061366.3.579.2 .1259 1998 Unknown [id number] 2.16.840.1.949622.3.579.2 .1259 1998 Unknown [id number] 2.16.840.1.554254.3.579.2 .9 1998 Unknown [id number] 2.16.840.1.829814.3.579.2 .9 1998 Unknown [id number] 2.16.840.1.497012.3.579.2 .9 1998 Unknown [id number] 2.16.840.1.482315.3.579.2 .1259 1959 Unknown [id number] Unknown [id number] Private Health Insurance [id number] Unknown [id number] 2.16.840.1.824904.3.579.2 .531 Unknown [id number] 2.16.840.1.098783.3.579.2 .531 Worker's Compensation Industrial [employer] Ins Misc [id number] Social History Date Type Detail Facility Tobacco smoking stat [facility] Unknown if ever smoked [facility] Start: 2000 Sex Assigned At Female F [facility] Start: 04-12-2014 End: 04-12-2022 Tobacco smoking status NHIS Smoker (finding) [facility] Start: 11-10-2022 Tobacco smoking status Heavy t obacco smoker (finding) [facility] Start: 10-14-2022 End: 03-02-2023 Sex Assigned At Female [facility] Start: 04-12-2014 End: 05-19-2023 Tobacco smoking [...] Healthcare How often do you att end ep[facility] or druze services? Patient refused [facility] Are you [...] To some extent [facility] (I/We) worried [facility] (my/our) food would run out before (I/we) got money to buy more. Never true [facility] Start: 11-30-2022 Alcohol Comment 1-2 drinks les s than monthly in the past year, Caffeine intake: 3-4 cups per day occasional, soda/pop [facility] Start: 1998 Sex Assigned At Not on file [facility] Start: 11-16-2023 End: 01-06-2024 Tobacco smoking status NHIS Ex-smoker (finding) [facility] Goals Date Patient Goal Desired Activity /State Functional Status Date Assessment Result Facility 05-27-2023 Functional Status N/A [facility] 11-10-2022 Functional Status N/A [facility] Clinical Notes 09-05-2021 to 01-07-2024 Telephone Encounter - Gege Eden - 01/07/2024 11:37 AM EDTTelephone Encounter - Gege Eden - 01/07/2024 11:37 AM EDTTelephone Encounter - Gianna Holman - 01/07/2024 10:19 AM EDT Note Date & Type Note Facility 01-07-2024 Telephone encount er Note Lvmtcb please complete ayah [facility] 01-07-2024 Miscellaneous Notes Formattin g of this note might be different from the original. Lvmtcb please complete ayah Per fax inbox pt was seen [facility] 01/05 low back pain documented in this encounter [facility] 01-07-2024 Telephone encount er Note Per fax inbox pt was seen [facility] 01/05 low back pain [facility] 01-05-2024 Telephone encount er Note [facility] 01-05-2024 Miscellaneous Notes Formattin g of this note might be different from the original. [place] [facility] For what symptoms or pain? Pt calls and asks for a referral to pain management, please advise thank you documented in this encounter [facility] 01-05-2024 Telephone encount er Note For what symptoms or pain? [facility] 01-05-2024 Telephone encount er Note Pt calls and asks for a referral to pain management, please advise thank you [facility] 12-31-2023 History of Presen t illness Narrative [...] Vaccine (1) 12/12/2023 documented in this encounter [facility] 05-27-2023 Hospital Discharg e instructions Patient Education [...] sitting or lying down. General instructions Take wxnu-you-bnkdjva and prescription medicines only as told by [...] provider. Document Revised: 07/06/2022 Document Reviewed: 02/16/2020 [employer] Patient Education 2022 [employer]. Follow Up Care 05/27/2023 11:17:41 With:Russell Chavez Address: [address] [place], [place] [id number] [facility] (1) When:05/30/2023 12:39:[address] [facility] 05-27-2023 Evaluation + Plan note Extrac charli from: Title:ED Note Author:Pola Purcell PA-C te:05/27/23 Knee sprain (S83.90XA: Sprai n of unspecified site of unspecified knee, initial encounter) Orders: Knee Brace XR Knee Complete 4+ Views Right [facility]02-14-2024 History of Present illness Narrative* Bella [...] further adjustments if necessary. documented in this encounterBothwell Regional Health [id number] History of Present illness Narrative* Elisabet Giron [...] sub stitutions have occurred. documented in this encounterBothwell Regional Health [id number] History of Present illness Narrative* EFREM Mccabe [...] ultrasound guidance. EFREM Mccabe documented in this [facility]02-07-2024 Instructions* Patient Instructions* EFREM Mccabe - [...] cortisone under ultrasound guidance. documented in this [facility]02-05-2024 History of Present illness Narrative* Maame [...] She states she is going to call [facility] appointment, She saw Shala Conn previously. [...] acting as scribe for Dr. Oleary_. Signature _Marileos JASSO_ Date _05/17/2023_. The documentation recorded by the scribe accurately reflects the service(s) I personally performed and the decisions I made. documented in this encounterBothwell Regional Health [id number] History of Present illness Narrative* Maame Fish [...] the decisions I made. documented in this encounterBothwell Regional Health [id number] Hospital Discharge instructions Patient Education 11/10/2022 19:05:26 [...] to any changes in your symptoms. Take pcqy-lse-ohxlpcu and prescription medicines only as told by [...] provider. Document Revised: 11/15/2021 Document Reviewed: 11/15/2021 [employer] Patient Education 2022 [employer]. 11/10/2022 19:05:26 Abdominal Pain, Adult Abdominal Pain, [...] Follow these instructions at home: Medicines Take fitr-kdy-adwcjqd and prescription medicines only as told by [...] Watch your condition for any changes. Take lxvc-qhr-auyrvox and prescription medicines only as told by [...] provider. Document Revised: 05/17/2020 Document Reviewed: 08/07/2019 [employer] Patient Education 2022 [employer]. Follow Up Care 11/10/2022 15:59:56 With:Bella Camara Address: [place] [address] Business (1) When:11/13/2022 18:55:01 Comments:Retrurn to the emergency room if your shortness of breath recurs, abdominal pain recurs or any new symptoms. [facility]08-01-2023 Evaluation + Plan noteExtracted from: Title:ED [...] With Cult Reflex XR Chest Single View [facility]05-27-2022 NoteHISTORY: Mid to lower back pain [...] signed by Jonnie Jacob on 09/09/2021 1057[facility]istEvaluation noteNo assessment information availableGrant [facility] Work Phone: Evaluation note* Diagnosis It [...] Anxiety state, unspecified documented in this encounter [facility] Narrative No data available for this section [facility] Additional Instructions If your symptoms return/worsen or you develop any further concerns or symptoms please see your doctor or return to the emergency department immediately.[facility] Work Phone: Hospital Discharge instructions Additional Instructions Increase your intake of fluids. Take Zofran as prescribed for any nausea. Take Tamiflu to help decrease the duration of symptoms. Take Motrin Tylenol as needed for fever and chest pain. Follow-up with PCP for any persistent symptoms in 5 to 7 days.[facility] Work Phone: Hospital Discharge instructions No data available for this section [facility] Hospital[facility] note No data available for this section [facility] Summary Purpose Family History Relationship Condition [...] right Trochanteric bursitis of right hip Procedures [facility] 60 MINUTES Shala Conn, PA [address] [place] [address] Daja Carter, PT [address] [place] [address] Referral ID Status Reason Start Date Expiration Date Visits Requested Visits Authorized [id number] Pending Review Specialty Services Required 05/19/2023 11/15/2023 1 1 Additional Source Comments INFORMATION SOURCE (unrecogn ized section and content) DATE CREATED AUTHOR 09/14/2018 [facility] DATE CREATED AUTHOR AUTHOR'S ORGANIZ ATION 10/01/2020 [facility] DATE CREATED AUTHOR AUTHOR'S ORGANIZ ATION 10/05/2020 [facility] DATE CREATED AUTHOR AUTHOR'S ORGANIZ ATION 09/09/2021 [facility] dical Specialist DATE CREATED AUTHOR AUTHOR'S ORGANIZ ATION 10/16/2023 [facility] DATE CREATED AUTHOR AUTHOR'S ORGANIZ ATION 01/03/2024 [facility] dical Specialists EPIC DATE CREATED AUTHOR AUTHOR'S ORGANIZ ATION 01/21/2024 [facility] Care Teams (unrecognized sec [...] Phillip Shaw , DO Emergency Provider Active Farm Operations Manager Relationship Specialty Start Date End Date Bella Camara MD [address] [place] [id number] PCP - General Family Medicine 09/04/22 Morenita Corona, PA [address] [place] [address] PCP - Medical [employer] 09/10/22 Farm Operations Manager Relationship Specialty Start Date End Date Bella Camara MD [address] [place] [id number] PCP - General Family Medicine 09/04/22 Morenita Corona, PA [address] [place] [address] PCP - Medical [employer] 09/10/22 Farm Operations Manager Relationship Specialty Start Date End Date Bella Camara MD [address] [place] [address] PCP - General Family Medicine 09/04/22 Morenita Corona PA [address] [place] [address] PCP - Medical [employer] 09/10/22 Farm Operations Manager Relationship Specialty Start Date End Date Bella Camara MD [address] [place] [address] PCP - General Family Medicine 09/04/22 Morenita Corona, PA [address] [facility] [address] [place] [address] PCP - Medical [employer] 09/10/22 Farm Operations Manager Relationship Specialty Start Date End Date Bella Camara MD [address] [place] [address] PCP - General Family Medicine 09/04/22 Morenita Corona, PA [address] [place] [address] PCP - Medical [employer] 09/10/22 Farm Operations Manager Relationship Specialty Start Date End Date Bella Camara MD [address] [place] [address] PCP - General Family Medicine 09/04/22 Morenita Corona, PA [address] [facility] [address] [place] [address] PCP - Medical [employer] 09/10/22 Farm Operations Manager Relationship Specialty Start Date End Date Bella Camara MD [address] [place] [address] PCP - General Family Medicine 09/04/22 Morenita Corona, PA [address] [place] [address] [place] [address] PCP - Medical [employer] 09/10/22 Team Status: Active Member Role Status Dates Miracle Padilla MD Primary Care Provider Active Team Status: Inactive Member Role Status Dates Miracle Padilla MD Primary Care Provider Active S tart: January 06, 2024 End: January 06, 2024 Cuco TREVON Hall Emergency Provider Active Start: January 06, 2024 End: January 06, 2024 Farm Operations Manager Relationship Specialty Start Date End Date Bella Camara MD [address] [place] [id number] PCP - General Family Medicine 09/04/22 01/06/24 Farm Operations Manager Relationship Specialty Start Date End Date Bella Camara MD [address] [place] [id number] PCP - General Family Medicine 09/04/22 Farm Operations Manager Relationship Specialty Start Date End Date Bella Camara MD [address] [place] [id number] PCP - General Family Medicine 09/04/22 Farm Operations Manager Relationship Specialty Start Date End Date Miracle Padilla MD [address] [place] [id number] PCP - General Family Medicine 01/07/24 Farm Operations Manager Relationship Specialty Start Date End Date Miracle Padilla MD [address] [place] [id number] PCP - General Family Medicine 01/07/24 Goals [...] BE BASED ON THE PRIMARY CLINICAL RECORDS. [facility] [facility]. provides no warranty or guarantee of the accuracy or completeness of information in this document.
[2024-07-03 04:02] LABS: Bilirubin Urine NEGATIVE (NEGATIVE); Blood Urine TRACE-I (NEGATIVE); Clarity Urine CLEAR (CLEAR); Color Urine YELLOW (YELLOW); Glucose Urine UA NEGATIVE (NEGATIVE); Ketones Urine NEGATIVE (NEGATIVE); Leukocyte Esterase Urine NEGATIVE (NEGATIVE); Nitrite Urine NEGATIVE (NEGATIVE); Protein Urine NEGATIVE (NEG/TRACE); Specific Gravity Urine >=1.030 (1.005-1.025); Urobilinogen Urine 0.2 EU/dL (0.2-1.0)
[2024-07-03 04:05] LABS: Urine Microscopic Indicated YES
--- NOTE | 2024-07-03 04:05 | ED.ABDPAIN1 ---
HPI - Abdominal Pain General Chief Complaint: Abdominal Pain Stated Complaint: NAUSEA, ABDOMINAL PAIN Time Seen by Provider: 07/03/24 04:03 Source: patient Mode of arrival: walk-in Limitations: no limitations History of Present Illness HPI narrative: abdominal cramping and nausea started about one hour ago. Believes it is related to something she ate Related Data Home Medications ?Medication ?Instructions ?Recorded ?Confirmed bupropion HCl 150 mg 24 hr tablet, 150 mg PO BID 06/02/24 07/03/24 extended release duloxetine 60 mg capsule,delayed 60 mg PO QDAY 06/02/24 07/03/24 release buspirone 10 mg tablet 10 mg PO PRN anxiety 07/03/24 Previous Rx's ?Medication ?Instructions ?Recorded ondansetron 4 mg disintegrating 4 mg PO Q8H PRN nausea and 06/08/24 tablet vomiting 48 hours #10 tabs Allergies Allergy/AdvReac Type Severity Reaction Status Date / Time penicillin G Allergy Mild Rash Verified 07/03/24 03:56 cefdinir AdvReac Severe Anaphylaxis Verified 07/03/24 03:56 PFSH PFSH Social History Smoking status: Current every day smoker Little interest or pleasure in doing things: not at all Feeling down, depressed, or hopeless: not at all Exam Constitutional Vital Signs, click to edit/add: Last Vital Signs Temp 98.1 F 07/03/24 03:51 Pulse 55 L 07/03/24 03:51 Resp 16 07/03/24 04:06 BP 107/79 07/03/24 03:51 Pulse Ox 100 07/03/24 03:51 O2 Del Method Room Air 07/03/24 03:51 Course Vital Signs Vital signs: Vital Signs Temperature 98.1 F 07/03/24 03:51 Pulse Rate 55 L 07/03/24 03:51 Respiratory Rate 18 07/03/24 03:51 Blood Pressure 107/79 07/03/24 03:51 Pulse Oximetry 100 07/03/24 03:51 Oxygen Delivery Method Room Air 07/03/24 03:51 Temperature 98.1 F 07/03/24 03:51 Pulse Rate 55 L 07/03/24 03:51 Respiratory Rate 16 07/03/24 04:06 Blood Pressure 107/79 07/03/24 03:51 Pulse Oximetry 100 07/03/24 03:51 Oxygen Delivery Method Room Air 07/03/24 03:51 MDM - Abdominal Pain MDM Narrative Medical decision making narrative: patient presents with nausea and abdominal cramping. abdomen nontender. labs demonstrate dehydration. Patient hydrated and treated with anti emetic. feeling better and discharged home Lab Data Labs: Lab Results 07/03/24 07/03/24 Range/Units 03:49 04:25 WBC 7.3 (4.0-11.0) 10^3/uL RBC 4.13 L (4.20-5.40) 10^6/uL Hgb 12.7 (12.0-16.0) g/dL Hct 37.7 (36.0-48.0) % MCV 91.3 (81.0-99.0) fL MCH 30.8 (26.7-34.0) pg MCHC 33.7 (29.9-35.2) g/dL RDW 13.0 (11.0-15.0) % Plt Count 170 (150-450) 10^3/uL MPV 12.7 (9.5-13.5) fL Neut % (Auto) 52.7 (43.0-75.0) % Lymph % (Auto) 32.1 (20.5-60.0) % [place] % (Auto) 7.5 (1.7-12.0) % Eos % (Auto) 6.6 (0.9-7.0) % Baso % (Auto) 0.8 (0.2-2.0) % Neut # (Auto) 3.9 (1.4-6.5) 10^3/uL Lymph # (Auto) 2.4 (1.2-3.8) 10^3/uL [place] # (Auto) 0.6 (0.3-0.8) 10^3/uL Eos # (Auto) 0.5 (0.0-0.7) 10^3/uL Baso # (Auto) 0.1 (0.0-0.1) 10^3/uL Abs Immat Gran (auto) 0.02 (0.00-0.03) 10^3/uL Imm/Tot Granulo (auto) 0.3 (0.0-0.5) % Sodium 141 (136-145) mmol/L Potassium 3.7 (3.5-5.1) mmol/L Chloride 106 (98-107) mmol/L Carbon Dioxide 25.8 (21.0-32.0) mmol/L Anion Gap 12.9 BUN 16.0 (7.0-18.0) mg/dL Creatinine 0.82 (0.55-1.02) mg/dL Est GFR ( Amer) >60 (>=60 mL/min/1.73m^2) Est GFR (Non-Af Amer) >60 (>=60 mL/min/1.73m^2) BUN/Creatinine Ratio 19.5 Glucose 92 (74-106) mg/dL Calcium 9.0 (8.5-10.1) mg/dL Total Bilirubin 0.2 (0.2-1.0) mg/dL AST 13 L (15-37) U/L ALT 19 (14-59) U/L Alkaline Phosphatase 60 (46-116) U/L Total Protein 6.7 (6.4-8.2) g/dL Albumin 3.6 (3.4-5.0) g/dL Globulin 3.1 g/dL Albumin/Globulin Ratio 1.2 Urine Color Yellow (YELLOW) Urine Clarity Clear (CLEAR) Urine pH 6.0 (5.0-9.0) Ur Specific Lee >=1.030 A (1.005-1.025) Urine Protein Negative (NEG/TRACE) mg/dL Urine Glucose (UA) Negative (NEGATIVE) mg/dL Urine Ketones Negative (NEGATIVE) mg/dL Urine Occult Blood Trace-i (NEGATIVE) Urine Nitrite Negative (NEGATIVE) Urine Bilirubin Negative (NEGATIVE) Urine Urobilinogen 0.2 (0.2-1.0) EU/dL Ur Leukocyte Esterase Negative (NEGATIVE) Urine RBC 0-2 (0-2) #/HPF Urine WBC 2-5 A (NONE SEEN) #/HPF Ur Squamous Epith Cells Few A (NONE/RARE) #/LPF Urine Crystals None seen (None Seen) #/HPF Urine Bacteria Moderate A (NONE SEEN) #/HPF Urine Casts None seen (NONE SEEN) #/LPF Urine Mucus Small A (NONE SEEN) Ur Culture Indicated? Yes-[facility] Discharge Plan Discharge Chief Complaint: Abdominal Pain Clinical Impression: Nausea & vomiting Patient Disposition: Home, Self-Care Prescriptions / Home Meds: No Action ondansetron 4 mg tablet,disintegrating 4 mg PO Q8H PRN (Reason: nausea and vomiting) 2 Days Qty: 10 0RF buspirone 10 mg tablet 10 mg PO PRN (Reason: anxiety) duloxetine 60 mg capsule,delayed release(DR/EC) 60 mg PO QDAY bupropion HCl 150 mg tablet extended release 24 hr 150 mg PO BID Print Language: Bahraini Instructions: Acute Nausea and Vomiting (ED) Referrals: EUNICE GALE [Primary Care Provider] - 1 week
[2024-07-03 04:08] LABS: Bacteria Urine MODERATE #/HPF (NONE SEEN); Cast Seen? NONE SEEN #/LPF (NONE SEEN); Crystals Seen? None Seen #/HPF (None Seen); Mucus Urine SMALL (NONE SEEN); RBC Urine 0-2 #/HPF (0-2); Squamous Epithelial Cell Urine FEW #/LPF (NONE/RARE); Urine Culture Indicated YES-FRMC
[2024-07-03] MEDS: 0.9 % SODIUM CHLORIDE 1,000 ML 999 ML IV (04:27)
[2024-07-03] MEDS: ONDANSETRON PF 4 MG/2 ML VIAL IV (04:28)
[2024-07-03 04:38] LABS: Basophils Absolute Auto 0.1 10^3/uL (0.0-0.1); Basophils Percent Auto 0.8 % (0.2-2.0); Eosinophils Absolute Auto 0.5 10^3/uL (0.0-0.7); Eosinophils Percent Auto 6.6 % (0.9-7.0); Hematocrit 37.7 % (36.0-48.0); Hemoglobin 12.7 g/dL (12.0-16.0); Immature Granulocytes Abs Auto 0.02 10^3/uL (0.00-0.03); Immature Granulocytes Pct Auto 0.3 % (0.0-0.5); Lymphocytes Absolute Auto 2.4 10^3/uL (1.2-3.8); Lymphocytes Percent Auto 32.1 % (20.5-60.0); Mean Corpuscular HGB Conc 33.7 g/dL (29.9-35.2); Mean Corpuscular Hemoglobin 30.8 pg (26.7-34.0); Mean Corpuscular Volume 91.3 fL (81.0-99.0); Mean Platelet Volume 12.7 fL (9.5-13.5); Monocytes Absolute Auto 0.6 10^3/uL (0.3-0.8); Monocytes Percent Auto 7.5 % (1.7-12.0); Neutrophils Absolute Auto 3.9 10^3/uL (1.4-6.5); Neutrophils Percent Auto 52.7 % (43.0-75.0); Platelet Count 170 10^3/uL (150-450); Red Blood Count 4.13 10^6/uL (4.20-5.40); White Blood Count 7.3 10^3/uL (4.0-11.0)
[2024-07-03 04:54] LABS: Alanine Aminotransferase 19 U/L (14-59); Albumin Globulin Ratio 1.2; Albumin Level 3.6 g/dL (3.4-5.0); Alkaline Phosphatase 60 U/L (46-116); Anion Gap 12.9; Aspartate Amino Transferase 13 U/L (15-37); BUN Creatinine Ratio 19.5; Bilirubin Total 0.2 mg/dL (0.2-1.0); Carbon Dioxide 25.8 mmol/L (21.0-32.0); Chloride 106 mmol/L (98-107); Estimated GFR (African America >60 (>=60 mL/min/1.73m^2); Estimated GFR (Non-African Ame >60 (>=60 mL/min/1.73m^2); Globulin 3.1 g/dL; Glucose 92 mg/dL (74-106); Potassium 3.7 mmol/L (3.5-5.1); Sodium 141 mmol/L (136-145); Total Protein 6.7 g/dL (6.4-8.2)
== END 2024-07-03 05:45 | disposition home or self-care (01) ==
PROVIDERS: Emergency Provider Internal Medicine; PCP Student in an Organized Health Care Education/Training Program
DX: R11.2 Nausea with vomiting, unspecified (principal); R10.9 Unspecified abdominal pain; F17.200 Nicotine dependence, unspecified, uncomplicated
CPT/HCPCS: 36415; 80053; 81001; 85025; 87086; 96361; 96374; 99284; J2405

== ENCOUNTER 2024-11-19 07:30 | Emergency (ER) | payer SELFPAY ==
--- OUTSIDE RECORDS SUMMARY | 2011-01-22 09:50 | XMS_ITS | Continuity of Care Document ---
Author Organization [facility] Address [address] [place] [address] Phone Care Team Providers Care Drop Tester Name Role Phone Isai Vazquez Unavailable Unavailable [...] Providers Copied on Encounter PREVENTIVE COUNSELING, INDIV [facility], [address] [place], [place], [id number], [place] tel:[phone] [facility] Influenza VaccineNeed for prophylactic vaccination with combined diphtheria-te tanus-pertuss is (DTP) (DTaP) vaccineNeed for prophylactic vaccination and inoculation against other specified single bacterial disease [address] Reyes[address] [place], [place], [id number] , [place]. tel:[phone] Family History Family Member Type Diagnosis Age At Onset No Information Immunizations Vaccine Date Status Comments Tdap administered Source: New Imm unization Record MCV4 (11-55 yrs) administered Source: New Immunization Record Flu (split) (3 yrs or older) administered Source: New Immunization Record Payers Payer name Insurance type Covered libertarian ID Authoriza tion(s) No Information Social History [...]
--- OUTSIDE RECORDS SUMMARY | 2024-07-17 05:40 | XMS_ITS ---
Author Organization [facility] Address [address] [place] [address] Care Team Providers Care Personal Lines Insurance Advisor Name Role Phone Sang Porter [facility] [phone] REASON FOR VISIT RIGHT THUMB PAIN Encounters Encounter Location Date Provider Diagnosis [facility] [address] [place] [address] [place] [address] 07/17/2024 Sang Porter Plan Of Treatment No Information Progress Notes * HEBERT SHAHIS KDOB:2000 (24 yo F)Acc No.[id number]:07/17/2024 Patient: LEYDI LOMBARDI Provider: Michael Porter MD :2000 A ge:23 Y S ex:Female Date:07/17/2024 Address:[address] [id number] Subjective: * Chief Complaints: * 1 . RIGHT THUMB PAIN. * Medical History: Objective: * Vitals: Assessment: Plan: * Treatment: Forms: * Images: * Electronic signature of Aaron Porter MD on 11/19/2024 at 07:57 AM EDT Sign off status: Pending * Provider: Michael Porter MD Date: 0 07/17/2024 Generated for Julio Cesar jacome/Zeny/Shayanitting on: 11/19/2024 07:57 AM EDT
[2024-11-19 07:33] VITALS: BP 140/75; PULSE 66; TEMP 36.6; O2SAT 100; BMI 20.7
[2024-11-19 07:39] VITALS: TEMP 36.6
[2024-11-19] MEDS: FAMOTIDINE/PF 20 MG/2 ML VIAL IV (07:53)
[2024-11-19] MEDS: 0.9 % SODIUM CHLORIDE 1,000 ML 1000 ML IV (07:54)
--- NOTE | 2024-11-19 07:55 | ED.NAVMDI1 ---
HPI - Nausea/Vomiting/Diarrhea General Chief complaint: Nausea/Vomiting/Diarrhea Stated complaint: nausea/vomiting Time Seen by Provider: 11/19/24 07:37 Source: patient Mode of arrival: walk-in History of Present Illness HPI Narrative: The patient 24-year-old female is coming to the ER after she was drinking heavily yesterday while she was playing golf with her friends, patient had at least 9 shots of alcohol and multiple drinks which is way more than her usual baseline, she mentioned that she arrived at home at 7 PM started throwing up and she has not been able to keep anything down since yesterday The patient denies any abdominal pain or chest pain No blood in vomiting Related Data Home Medications ?Medication ?Instructions ?Recorded ?Confirmed bupropion HCl 150 mg 24 hr tablet, 150 mg PO BID 06/02/24 07/03/24 extended release duloxetine 60 mg capsule,delayed 60 mg PO QDAY 06/02/24 07/03/24 release buspirone 10 mg tablet 10 mg PO PRN anxiety 07/03/24 Previous Rx's ?Medication ?Instructions ?Recorded ondansetron 4 mg disintegrating 4 mg PO Q8H PRN nausea and 06/08/24 tablet vomiting 48 hours #10 tabs famotidine 20 mg tablet (Pepcid) 20 mg PO BID #20 tabs 11/19/24 ondansetron 4 mg disintegrating 4 mg PO Q8H PRN nausea and 11/19/24 tablet vomiting 4 days #12 tabs Allergies Allergy/AdvReac Type Severity Reaction Status Date / Time penicillin G Allergy Mild Rash Verified 07/03/24 03:56 cefdinir AdvReac Severe Anaphylaxis Verified 07/03/24 03:56 Review of Systems ROS Status of ROS 10 or more systems reviewed and unremarkable except as noted in history and below PFSH PFSH Social History Smoking status: Current every day smoker Little interest or pleasure in doing things: not at all Feeling down, depressed, or hopeless: not at all Exam Narrative Exam Narrative: Nurses notes and vital signs reviewed and patient is not hypoxic. General: Well-appearing and in no apparent distress. Skin: Warm, dry, no pallor noted. No rash. Head: Normocephalic, atraumatic. Neck: Supple, non-tender. Cardiovascular: Regular Rate and Rhythm without murmur, gallop or rub. Respiratory: No accessory muscle use or respiratory distress. Lungs are clear to auscultation, no wheezing, rales or rhonchi Chest Wall: no tenderness Back: No midline thoracic or lumbar vertebral tenderness. No CVA tenderness Musculoskeletal: normal ROM, no calf or popliteal tenderness, no lower extremity edema/swelling GI: Abdomen is soft, non-distended. Normal bowel sounds. No masses appreciated. No tenderness to palpation. No rebound, guarding, or rigidity noted. Neurological: A&O x4. No cranial nerve dysfunction observed. Constitutional Vital Signs, click to edit/add: Last Vital Signs Temp 98 F 11/19/24 07:39 Pulse 66 11/19/24 07:33 Resp 18 11/19/24 07:33 BP 140/75 11/19/24 07:33 Pulse Ox 100 11/19/24 07:33 O2 Del Method Room Air 11/19/24 07:33 Course Vital Signs Vital signs: Vital Signs Temperature 98 F 11/19/24 07:33 Pulse Rate 66 11/19/24 07:33 Respiratory Rate 18 11/19/24 07:33 Blood Pressure 140/75 11/19/24 07:33 Pulse Oximetry 100 11/19/24 07:33 Oxygen Delivery Method Room Air 11/19/24 07:33 Temperature 98 F 11/19/24 07:39 Pulse Rate 66 11/19/24 07:33 Respiratory Rate 18 11/19/24 07:33 Blood Pressure 140/75 11/19/24 07:33 Pulse Oximetry 100 11/19/24 07:33 Oxygen Delivery Method Room Air 11/19/24 07:33 MDM - Nausea/Vomiting/Diarrhea MDM Narrative Medical decision making narrative: Patient presenting to us with simple gastritis secondary to alcohol over intake The patient CBC and chemistry showed no acute pathology with a negative test and lipase She was provided IV fluids and Zofran after which she was feeling much better she also was provided with Pepcid in the ER Patient was discharged home with Pepcid and Zofran and continue supportive care The patient is to follow up with primary care physician in next 2-3 days or to return to the emergency department should any of the signs or symptoms worsen or new symptoms develop. The patient agrees with the following Diagnosis and Treatment plan and the patient will be discharged home. Lab Data Labs: Lab Results 11/19/24 Range/Units 07:58 WBC 9.4 (4.0-11.0) 10^3/uL RBC 4.67 (4.20-5.40) 10^6/uL Hgb 14.6 (12.0-16.0) g/dL Hct 42.4 (36.0-48.0) % MCV 90.8 (81.0-99.0) fL MCH 31.3 (26.7-34.0) pg MCHC 34.4 (29.9-35.2) g/dL RDW 12.9 (11.0-15.0) % Plt Count 236 (150-450) 10^3/uL MPV 12.1 (9.5-13.5) fL Neut % (Auto) 86.8 H (43.0-75.0) % Lymph % (Auto) 9.3 L (20.5-60.0) % Hawkins % (Auto) 3.0 (1.7-12.0) % Eos % (Auto) 0.3 L (0.9-7.0) % Baso % (Auto) 0.4 (0.2-2.0) % Neut # (Auto) 8.2 H (1.4-6.5) 10^3/uL Lymph # (Auto) 0.9 L (1.2-3.8) 10^3/uL Hawkins # (Auto) 0.3 (0.3-0.8) 10^3/uL Eos # (Auto) 0.0 (0.0-0.7) 10^3/uL Baso # (Auto) 0.0 (0.0-0.1) 10^3/uL Abs Immat Gran (auto) 0.02 (0.00-0.03) 10^3/uL Imm/Tot Granulo (auto) 0.2 (0.0-0.5) % Sodium 142 (136-145) mmol/L Potassium 4.1 (3.5-5.1) mmol/L Chloride 105 (98-107) mmol/L Carbon Dioxide 24.8 (21.0-32.0) mmol/L Anion Gap 16.3 BUN 13.0 (7.0-18.0) mg/dL Creatinine 0.72 (0.55-1.02) mg/dL Est GFR ( Amer) >60 (>=60 mL/min/1.73m^2) Est GFR (Non-Af Amer) >60 (>=60 mL/min/1.73m^2) BUN/Creatinine Ratio 18.1 Glucose 98 (74-106) mg/dL Calcium 9.9 (8.5-10.1) mg/dL Total Bilirubin 0.6 (0.2-1.0) mg/dL AST 36 (15-37) U/L ALT 43 (14-59) U/L Alkaline Phosphatase 64 (46-116) U/L Total Protein 8.4 H (6.4-8.2) g/dL Albumin 4.9 (3.4-5.0) g/dL Globulin 3.5 g/dL Albumin/Globulin Ratio 1.4 Lipase 26.0 (16.0-77.0) U/L Serum HCG, Qual Negative (NEGATIVE) Discharge Plan Discharge Chief Complaint: Nausea/Vomiting/Diarrhea Clinical Impression: Nausea and vomiting in adult, Alcohol use Patient Disposition: Home, Self-Care Time of Disposition Decision: 08:39 Condition: Good Prescriptions / Home Meds: New famotidine [Pepcid] 20 mg tablet 20 mg PO BID Qty: 20 0RF ondansetron 4 mg tablet,disintegrating 4 mg PO Q8H PRN (Reason: nausea and vomiting) 4 Days Qty: 12 0RF No Action ondansetron 4 mg tablet,disintegrating 4 mg PO Q8H PRN (Reason: nausea and vomiting) 2 Days Qty: 10 0RF buspirone 10 mg tablet 10 mg PO PRN (Reason: anxiety) duloxetine 60 mg capsule,delayed release(DR/EC) 60 mg PO QDAY bupropion HCl 150 mg tablet extended release 24 hr 150 mg PO BID Print Language: Pashto Instructions: Gastritis (DC), Acute Nausea and Vomiting (DC) Referrals: EUNICE GALE [Primary Care Provider] - 1 week
--- OUTSIDE RECORDS SUMMARY | 2024-11-19 07:57 | XMS_ITS | Encounter Summary ---
Author Organization [facility] Address [address] [place] [address] Care Team Providers Care Parimutuel Cashier Name Role Phone Bella Camara MD Primary Care Provider Baldomero Padilla MD Primary Care Provider Encounter Details Date Type Department Care Team (Late st Contact Info) Description [facility]2023 [facility] [address] [place] [address] Jose Cason DO [address] [place] [address] Social History Tobacco Use Types Packs/Day Years Used Date Smoking Tobacco: Every Day Cigarettes 0.3 10.6 Started: 04/12/2014 Smokeless Tobacco: Never Alcohol Use Standard Drinks/Week Comments Not Currently 0 (1 standard drink = 0.6 oz pure alcohol) 1-2 drinks less than monthly in the past year, Caffeine intake: 3-4 cups per day occasional, soda/pop Humiliation, Afraid, Rape, and Kick questionnair e Answer Date Recorded Within the last year, have y ou been afraid of your partner or ex-partner? No 10/14/2022 Within the last year, have y ou been humiliated or emotionally abused in other ways by your partner or ex-partner? No Within the last year, have y ou been kicked, hit, slapped, or otherwise physically hurt by your partner or ex-partner? No 10/14/2022 Within the last year, have y ou been raped or forced to have any kind of sexual activity by your partner or ex-partner? No 10/14/2022 Social Connection and Isolation Panel [NHANES] A nswer Date Recorded In a typical week, how many times do you talk on the phone with family, friends, or neighbors? Three times a week 10/15/19 How often do you get togethe r with friends or relatives? Once a week 10/14/2022 How often do you attend chur or rastafarian services? Patient declined 10/14/2022 Do you belong to any clubs o r organizations such as episcopalian groups, unions, fraternal or athletic groups, or school groups? No 10/14/2022 How often do you attend meet ings of the clubs or organizations you belong to? Patient declined 10/14/2022 Are you , , di vorced, , never , or living with a partner? Living with partner 10/14/2022 AUDIT-C Answer Date Recorded Q1: How often do you have a drink containing alc ohol? 2-4 times a month 10/14/2022 Q2: How many drinks containi ng alcohol do you have on a typical day when you are drinking? 5 or 6 10/14/2022 Q3: How often do you have si x or more drinks on one occasion? Monthly 10/14/2022 Overall Financial Resource Strain (CARDIA) Answe r Date Recorded How hard is it for you to pa y for the very basics like food, housing, medical care, and heating? Not hard at all 10/14/2022 PHQ-2 Answer Date Recorded Patient Health Questionnaire-2 Score 2 03/02/2023 [facility] - Occupational Stress Questionnaire Answer Date Recorded Do you feel stress - tense, restless, nervous, or anxious, or unable to sleep at night because your mind is troubled all the time - these days? To some extent 10/14/2022 Exercise Vital Sign Answer Date Recorde d On average, how many days pe r week do you engage in moderate to strenuous exercise (like a brisk walk)? 3 days 10/14/2022 On average, how many minutes do you engage in exercise at this level? 30 min 10/14/2022 Hunger Vital Sign Answer Date Recorded Within the past 12 months, y ou worried that your food would run out before you got the money to buy more. Never true 10/15/19 23 Within the past 12 months, t he food you bought just didn't last and you didn't have money to get more. Never true 10/14/2022 PRAPARE - Transportation Answer Date Re corded In the past 12 months, has l ack of transportation kept you from medical appointments or from getting medications? No 08/2022 In the past 12 months, has l ack of transportation kept you from meetings, work, or from getting things needed for daily living? No 10/14/2022 Housing Stability Vital Sign Answer Allen e Recorded In the last 12 months, was t here a time when you were not able to pay the mortgage or rent on time? No 10/14/2022 In the last 12 months, how many places have you lived? 1 10/14/2022 In the last 12 months, was t here a time when you did not have a steady place to sleep or slept in a prison (including now)? No 10/14/2022 Comments Unknown Sex and Gender Information Value Date Recorded Sex Assigned at Not on file Legal Sex Female 7:17 PM EDT Gender Identity Not on file Sexual Orientation Not on file documented as of this encounter Plan of Treatment Upcoming Encounters Date Type Department Care Team (Late st Contact Info) Description 11/23/2024 8:30 AM EDT Office Visit [facility] [address] [place] [phone] Baldomero Padilla MD [address] [place] [address] documented as of this encounter Visit Diagnoses Not on filedocumented in this encounter Care Teams Parimutuel Cashier Relationship Specialty Start Date End Date Bella Camara MD [address] [place] [address] PCP - General Family Medicine 09/04/22 01/06/24 Baldomero Padilla MD [address] [place] [address] PCP - General Family Medicine 01/07/24 documented as of this encounter
--- OUTSIDE RECORDS SUMMARY | 2024-11-19 07:57 | XMS_ITS | Encounter Summary ---
Author Organization [facility] Address [address] [place] [address] Care Team Providers Care Cash Specialist Name Role Phone Bella Camara MD Primary Care Provider [phone] Baldomero Padilla MD Primary Care Provider [phone] Encounter Details Date Type Department Care Team (Late st Contact Info) Description 06/24/2023 Abstract [facility] [address] [place] [address] Jose Cason DO [address] [place] [address] Social History Tobacco Use Types Packs/Day Years [...] How often do you attend chur or yarsanism services? Patient declined 10/14/2022 Do you belong to any clubs o r organizations such as jew groups, unions, fraternal or athletic groups, or [...] Recorded Patient Health Questionnaire-2 Score 2 03/02/2023 [facility] ional [facility] - Occupational [...] place to sleep or slept in a custodial (including now)? No 10/14/2022 Comments Unknown Sex [...] [facility] [address] [place] [phone] Baldomero Padilla MD [address] [place] [address] documented as of this encounter Visit Diagnoses Not on filedocumented in this encounter Care Teams Cash Specialist Relationship Specialty Start Date End Date Bella Camara MD [address] [place] [address] PCP - General Family Medicine 09/04/22 01/06/24 Baldomero Padilla MD [address] [place] [address] PCP - General Family Medicine 01/07/24 documented as of this encounter
--- OUTSIDE RECORDS SUMMARY | 2024-11-19 07:57 | XMS_ITS | Encounter Summary ---
Author Organization [facility] Address [address] [place] [address] Care Team Providers Care Bench Assembler Operator Name Role Phone Bella Camara MD Primary Care Provider [phone] Morenita Corona Unavailable Baldomero Padilla MD Primary Care Provider [phone] Encounter Details Date Type Department Care Team (Late st Contact Info) Description 11/30/2022 Abstract [facility] [address] [place] [address] Bella Camara MD [address] [place] [address] Social History Tobacco Use Types Packs/Day Years Used Date Smoking Tobacco: Every Day Cigarettes 0.3 5 Smokeless Tobacco: Never Tobacco Cessation:Ready to Q uit: Not Asked; Counseling Given: Not Answered Alcohol Use Standard Drinks/Week Comments Yes 0 (1 standard drink = 0.6 oz [...] How often do you attend chur or tenriism services? Patient declined 10/14/2022 Do you belong to any clubs o r organizations such as shinto groups, unions, fraternal or athletic groups, or [...] and heating? Not hard at all 10/14/2022 [facility] - Occupational [...] place to sleep or slept in a skilled nursing (including now)? No 10/14/2022 Comments Unknown Sex and Gender Information Value Date Recorded Sex Assigned at Not on file Legal Sex Female 7:17 PM EDT Gender Identity Not on file Sexual Orientation Not on file COVID-19 Exposure Response Date Recorded In the last 10 days, have yo u been in contact with someone who was confirmed or suspected to have Coronavirus/COVID-19? No / Unsure 11/23/2022 11:34 AM EDT documented as of this encounter Plan of Treatment Upcoming Encounters Date Type Department Care Team (Late st Contact Info) Description 11/23/2024 8:30 AM EDT Office Visit [facility] [address] [place] [phone] Baldomero Padilla MD [address] [place] [address] documented as of this encounter Visit Diagnoses Not on filedocumented in this encounter Care Teams Bench Assembler Operator Relationship Specialty Start Date End Date Bella Camara MD [address] [place] [address] PCP - General Family Medicine 09/04/22 01/06/24 Morenita Corona PA [address] [facility] [address] [place] [address] PCP - Medical [employer] [employer] 09/10/22 06/19/23 Baldomero Padilla MD [address] [place] [address] PCP - General Family Medicine 01/07/24 documented as of this encounter
--- OUTSIDE RECORDS SUMMARY | 2024-11-19 07:57 | XMS_ITS | Encounter Summary ---
Author Organization [facility] Address [address] [place] [address] Care Team Providers Care Lockstitch Cup Setter Name Role Phone Bella Camara MD Primary Care Provider [phone] Baldomero Padilla MD Primary Care Provider [phone] Encounter Details Date Type Department Care Team (Late st Contact Info) Description 07/02/2023 Abstract [facility] Orthopa[facility] [address] [facility] [place] [address] Rajni Sharma, RN [address] [place], [place] Social History Tobacco Use Types Packs/Day Years [...] 10/14/2022 How often do you attend chur ch or gnosticist services? Patient declined 10/14/2022 Do you belong to any clubs o r organizations such as gnosticist groups, unions, fraternal or athletic groups, or [...] Recorded Patient Health Questionnaire-2 Score 2 03/02/2023 [facility] - Occupational Stress Questionnaire Answer Date Recorded [...] place to sleep or slept in a longterm (including now)? No 10/14/2022 Comments Unknown Sex [...] [facility] [address] [place] [address] Baldomero Padilla MD [address] [place] [address] documented as of this encounter Visit Diagnoses Not on filedocumented in this encounter Care Teams Lockstitch Cup Setter Relationship Specialty Start Date End Date Bella Camara MD [address] [place] [address] PCP - General Family Medicine 09/04/22 01/06/24 Baldomero Padilla MD [address] [place] [address] PCP - General Family Medicine 01/07/24 documented as of this encounter
--- OUTSIDE RECORDS SUMMARY | 2024-11-19 07:57 | XMS_ITS | Encounter Summary ---
Author Organization [facility] Address [address] [place] [address] Care Team Providers Care Bartacker Name Role Phone Bella Camara MD Primary Care Provider [phone] Morenita Corona Unavailable [phone] Baldomero Padilla MD Primary Care Provider Encounter Details Date Type Department Care Team (Late st Contact Info) Description 12/19/2022 Abstract [facility] [address] [place] [address] Tosha Underwood MD [address] [place] [address] Social History Tobacco Use Types Packs/Day Years Used Date Smoking Tobacco: Every Day Cigarettes 0.3 10.6 Started: 04/12/2014 Smokeless Tobacco: Never Tobacco Cessation:Ready to Q [...] often do you attend chur ch or church services? Patient declined 10/14/2022 Do you belong to any clubs o r organizations such as episcopal groups, unions, fraIntelliden or athletic groups, or school groups? No [...] and heating? Not hard at all 10/14/2022 [facility] - Occupational Stress [...] place to sleep or slept in a long-term (including now)? No 10/14/2022 Comments Unknown Sex [...] [facility] [address] [place] [phone] Baldomero Padilla MD [address] [place] [address] documented as of this encounter Visit Diagnoses Not on filedocumented in this encounter Care Teams Bartacker Relationship Specialty Start Date End Date Bella Camara MD [address] [place] [address] PCP - General Family Medicine 09/04/22 01/06/24 Morenita Corona PA [address] [place] [address] PCP - Medical [place] [employer] 09/10/22 06/19/23 Baldomero Padilla MD [address] [place] [address] PCP - General Family Medicine 01/07/24 documented as of this encounter
--- OUTSIDE RECORDS SUMMARY | 2024-11-19 07:57 | XMS_ITS | Encounter Summary ---
Author Organization [facility] Address [address] [place] [address] Care Team Providers Care Scientific Advisor Name Role Phone Bella Camara MD Primary Care Provider [phone] Baldomero Padilla MD Primary Care Provider [phone] Encounter Details Date Type Department Care Team (Late st Contact Info) Description 10/07/2023 Clinisync Result Encounter [facility] Department Unsolicited Amarilis Hong PRODUCTION MAINTENANCE TECHNICIAN [address] [place] [address] Social History Tobacco Use Types Packs/Day Years [...] often do you attend chur ch or mu-ism services? Patient declined 10/14/2022 Do you belong to any clubs o r organizations such as mosque groups, unions, fraternal or athletic groups, or [...] Recorded Patient Health Questionnaire-2 Score 2 03/02/2023 [facility] - Occupational Stress [...] on file documented as of this encounter Miscellaneous Notes * Result Encounter Note - Amarilis Hong NP - 10/07/2023 7:48 PM EDT Lungs are noted to be clear. Pt is noted to have dextroscoliosis is her thoracic spine. documented in this encounter Plan of Treatment Upcoming Encounters Date Type Department Care Team (Late st Contact Info) Description 11/23/2024 8:30 AM EDT Office Visit [facility] [address] [place] [phone] Baldomero Padilla MD [address] [place] [address] documented as of this encounter Procedures Procedure Name Priority Date/Time Associated Diagnosis Comments XR CHEST 2 VIEWS 10/07/2023 12:0 3 PM EDT documented in this encounter Results * XR CHEST 2 VIEWS (10/07/2023 12:03 PM EDT) Anatomical Region Laterality Modality Other 10/07/2023 12:0 3 PM EDT Narrative 10/07/2023 7:46 PM EDT Exam Date/Time: 10/07/2023 12:11 EDT Reason for [...] in mGy = . DAP = . Procedure Note Radiology, Radiologist, - 10/07/2023 Exam Date/Time: 10/07/2023 12:11 EDT Reason for [...] in mGy = . DAP = . us Amarilis Hong PRODUCTION MAINTENANCE TECHNICIAN [facility] Final Resul t documented in this encounter Visit Diagnoses Not on filedocumented in this encounter Care Teams Scientific Advisor Relationship Specialty Start Date End Date Bella Camara MD [address] [place] [address] PCP - General Family Medicine 09/04/22 01/06/24 Baldomero Padilla MD [address] [place] [address] PCP - General Family Medicine 01/07/24 documented as of this encounter
--- OUTSIDE RECORDS SUMMARY | 2024-11-19 07:57 | XMS_ITS | Clinical Summary ---
Author Organization [facility] Healthcare Address [address] [place] [address] Care Team Providers Care Export Administrator Name Role Phone Baldomero Padilal MD Primary Care Provider Allergies Active Allergy Reactions Criticality Noted Date Comments Cefdinir 09/18/2021 Other Reaction(s): lip swelling Penicillins Rash Low 01/26/2021 Medications albuterol HFA 90 mcg/act inhalerIndication s:Acute cough Inhale 2 puffs every 4 (four) hours if needed (cough). 18 g 3 01/02/20 23 Active albuterol (2.5 MG/3ML) 0.083% nebulizer solutionIndicatio ns:Shortness of breath Take 3 mL (2.5 mg) by nebulization every 6 (six) hours if needed for wheezing. 75 mL 11 01/19/20 23 Active Additional Information Patient not taking.Reported on 08/10/2024 acetaminophen (Tylenol) 325 MG tablet Active Rimegepant Sulfate (Nurtec) 75 MG tablet dispersibleIndica tions:Acute migraine Take 1 tablet by mouth every other day 30 tablet 11 10/04/19 24 Active buPROPion XL (Wellbutrin XL) 150 MG 24 hr tabletIndications :Anxiety 1 tab po bid 180 tablet 1 08/11/19 25 Active topiramate (Topamax) 25 MG tabletIndications :Atypical migraine Take 1 tablet (25 mg) by mouth at bedtime 30 tablet 11 08/11/19 25 026 Active traZODone (Desyrel) 50 MG tabletIndications :Difficulty sleeping Take 1 tablet (50 mg) by mouth at bedtime 90 tablet 3 08/11/19 25 026 Active etodolac XL (Lodine XL) 500 MG 24 hr tabletIndications :Trochanteric bursitis of right hip,S/P lateral meniscus repair of right knee Take 1 tablet (500 mg) by mouth Daily 30 tablet 11 08/11/19 25 026 Active busPIRone (Buspar) 10 MG tabletIndications :Anxiety Take 1 tablet (10 mg) by mouth in the morning and 1 tablet (10 mg) in the evening and 1 tablet (10 mg) before bedtime. 90 tablet 3 08/11/19 25 Active medroxyPROGESTERo ne (Depo-Provera) 150 MG/ML suspension prefilled syringe injection syringeIndication s:Encounter for surveillance of injectable contraceptive Inject 1 mL (150 mg) into the shoulder, thigh, or buttocks 1 (one) time for 1 dose 1 mL 3 08/17/19 25 Active fluticasone (Flonase) 50 MCG/ACT nasal sprayIndications: PND (post-nasal drip) Administer 1-2 sprays into each nostril Daily Shake gently. Before first use, prime pump. After use, clean tip and replace cap. 16 g 08/20/19 25 Active meclizine (Antivert) 25 MG tabletIndications :Vertigo Take 1 tablet (25 mg) by mouth 3 (three) times a day as needed for dizziness 30 tablet 1 08/29/19 25 026 Active Active Problems Problem Noted Date Diagnosed Date S/P right knee arthroscopy 08/20/2023 Acute pain of right knee 05/31/2023 Trochanteric bursitis of right hip 05/31/2023 Major depressive disorder, single episode, mild (F32.0) 05/31/2023 Acne vulgaris 02/01/2023 Cigarette smoker 09/24/2022 Sciatica associated with disorder of lumbosacral spine 09/09/2022 Low back pain with sciatica 09/09/2022 Idiopathic scoliosis of lumbar region 09/09/2022 Psychogenic nonepileptic seizure 11/14/2018 Anxiety 12/17/2016 Resolved Problems Problem Noted Date Diagnosed Date Resolved Date Influenza A 08/19/2024 08/19/2024 Contusion of hand, right 08/19/202401/2025 Chest pain 08/19/2024 08/19/2024 Asymptomatic bacteriuria dur ing ([facility]) 08/19/2024 08/19/2024 Abdominal cramping affecting ([facility]) 08/19/2024 08/19/2024 Rotator cuff injury 08/19/2024 08/20/19 Dysuria 02/01/2023 05/26/2023 Acute cough 01/01/2023 05/26/2023 Acute vaginitis 01/01/2023 05/26/2023 Olecranon bursitis of left elbow 09/09/2022 11/25/2022 Encounters Date Type Department Care Team Description 08/28/2024 10:45 AM EDT Office Visit [facility] [address] [place] [address] Baldomero Padilla MD Vertigo (Primary Dx) 08/28/2024 Travel 08/19/2024 12:45 PM EDT Office Visit [facility] [address] [place] [address] Mame Uribe PA Gastroenteritis (Primary Dx); Pharyngitis, unspecified etiology; PND (post-nasal drip) 08/19/2024 Travel from Last 3 Months Immunizations Immunization Administration Dates Next Due DTaP 07/24/2003 DTaP, Unspecified 10/17/1999, 9,01/29/1999,11/28 Hep B, Adolescent or Pediatric 04/10/1999,1998,1998 HiB, unspecified 10/17/1999, 9,01/29/1999,11/28 IPV 07/24/2003, 0,01/29/1999,11/28 Influenza Whole 03/01/2007,02/12/2000 Influenza, injectable, quadrivalent 02/19/2023 Influenza, injectable, quadr ivalent, preservative free 01/15/2020,01/26/2019,06/06/2018 Influenza, live, intranasal 01/30/2009 Influenza, seasonal, injectable 02/03/2008,03/22,04/08/2000 Influenza, seasonal, injecta ble, preservative free 01/22/2011 MMR 07/24/2003,10/17/1999 Meningococcal MCV4P 01/22/2011 Novel [id number], preservative-free 02/16/2009 OPV 04/10/1999 Pneumococcal Conjugate PCV 7 09/30/2000 Tdap 01/26/2019,06/21/2018,01/22/2011 Family History Medical History Relation Name Comments Arthritis Father Murtaza Arthritis Maternal Grandfather Grandfather (both) COPD Maternal Grandfather Grandfather (both) Cancer Maternal Grandfather Grandfather (both) HTN Maternal Grandfather Grandfather (both) Heart disease Maternal Grandfather Grandfather (both) Stroke Maternal Grandfather Grandfather (both) Cancer Maternal Grandmother Mame Endometriosis Mother Diabetes Paternal Grandfather Grandpa HTN Paternal Grandfather Grandpa Cancer Paternal Grandmother Mame Other cancer Paternal Grandmother Mame Bladder Stroke Sibling Relation Name Status Comments Father Murtaza Alive Maternal Grandfather Grandfather (both) Alive Maternal Grandmother Mame Mother Alive Paternal Grandfather Grandpa Alive Paternal Grandmother Mame Sibling Sister x2 Son Alive Social History Tobacco Use Types Packs/Day Years Used Date Smoking Tobacco: Former Cigarettes 0.3 11 S tarted: 04/12/2014 Smokeless Tobacco: Never Tobacco Cessation:Counseling Given: Not Answered Alcohol Use Standard Drinks/Week Comments Not Currently [...] often do you attend chur ch or latter day services? Patient declined 10/14/2022 Do you belong to any clubs o r organizations such as denominational groups, unions, fraternal or athletic groups, or [...] Recorded Patient Health Questionnaire-2 Score 2 03/02/2023 [facility] - Occupational [...] place to sleep or slept in a usp (including now)? No 10/14/2022 Comments No Sex and Gender Information Value Date Recorded Sex Assigned at Not on file Legal Sex Female 7:17 PM EDT Gender Identity Not on file Sexual Orientation Not on file Last Filed Vital Signs Vital Sign Reading Time Taken Comments Blood Pressure 116/68 08/19/2024 12:48 PM EDT Pulse 98 08/19/2024 12:48 PM EDT Temperature 36.2 C (97.1 F) 08/19/2024 12:48 PM EDT Respiratory Rate 16 12/17/2022 4:24 PM EDT Oxygen Saturation 99% 08/19/2024 12:48 PM EDT Inhaled Oxygen Concentration - - Weight 67.6 kg (149 lb) 08/10/2024 9:20 AM EDT Height 175.3 cm (5' 9 ) 08/10/2024 9:20 AM EDT Body Mass Index 22 08/10/2024 9:20 AM EDT Plan of Treatment Upcoming Encounters Date Type Department Care Team (Late st Contact Info) Description 11/23/2024 8:30 AM EDT Office Visit [facility] [address] [place] [phone] Baldomero Padilla MD [address] [place] [address] Health Maintenance Due Date Last Done Comments Influenza Vaccine (#1) 2024 3, 01/15/2020, 01/26/2019, Additional history exists Procedures Procedure Name Priority Date/Time Associated Diagnosis Comments STREP DNA PROBE Routine 08/19/2024 1:01 PM EDT Pharyngitis, unspecified etiology from Last 3 Months Results * STREP DNA PROBE (08/19/2024 1:01 PM EDT) RESULT neg Negative Throat 08/19/2024 1:01 PM EDT Agustin Hernandez DO POINT OF CARE TEST ENTER/ED IT ORDERABLES Final Result from Last 3 Months Care Teams Export Administrator Relationship Specialty Start Date End Date Baldomero Padilla MD [address] [place] [address] PCP - General Family Medicine 01/07/24
--- OUTSIDE RECORDS SUMMARY | 2024-11-19 07:57 | XMS_ITS | CCD ---
Author Organization [facility] Care Team Providers Care Materials Planner Name Role Phone MISC, DOCTOR Primary Care Unavailable SABA SOLO Admitting Unavailable SABA SOLO Attending Unavailable SABA SOLO Consulting Unavailable DO Phillip Tripp Primary Care Provider [phone] DO Taran Rea Emergency Provider DO Phillip Shaw Emergency Provider Unavai Bella Anders Primary Care Physician Bella Camara MD Primary Care Provider Morenita Page Unavailable ASHLIE CRANE Attending Unavailable ASHLIE CRANE Admitting Unavailable Michael Hannah Attending Unavailable Michael Hannah Attending Unavailable MD Miracle Padilla Primary Care Provider TREVON Hall Emergency Provider Bella Camara MD Primary Care Provider Miracle Padilla MD Primary Care Provider [phone] Usman Murillo MD Attending Provider Cuco Hall Attending Unavailable Miracle Padilla Primary Care Unavailable Cuco Hall Admitting Unavailable Usman Murillo Admitting Unavailable Usman Murillo Attending Unavailable MIRACLE PADILLA Attending Unavailable BELLA CAMARA Attending Unavailable ASHLIE WHIPPLE Attending Unavailable KHOA RODRIGUEZ Referring Unavailable TREY ALVARADO Attending Unavailable KHOA RODRIGUEZ Referring Unavailable MAME JIMÉNEZ Attending Unavailable MIRACLE PADILLA Attending Unavailable SHALA CONN Referring Unavailable SHALA CONN Referring Unavailable SHALA CONN Attending Unavailable SHALA CONN Referring Unavailable GRAZYNA GONZALEZ Attending Unavailable ASHLIE WHIPPLE Attending Unavailable KHOA RODRIGUEZ Referring Unavailable BELLA CAMARA Attending Unavailable TREY ALVARADO Attending Unavailable KHOA RODRIGUEZ Referring Unavailable ABIGAIL TREJO Attending Unavailable BELLA CAMARA Referring Unavailable ASHLIE CRANE Attending Unavailable MIRACLE PADILLA Attending Unavailable TREY ALVARADO Attending Unavailable KHOA RODRIGUEZ Referring Unavailable MIRACLE PADILLA Attending Unavailable MIRACLE PADILLA Attending Unavailable MIRACLE PADILLA Attending Unavailable KHOA RODRIGUEZ Attending Unavailable MIRACLE PADILLA Attending Unavailable Unavailable Unavailable Unavailable Allergies Allergy Classification Reported Allergen(s) Allergy Type Date of Onset Reaction(s) Facility (4 sources) Penicillins Drug allergy (disorder) 4 [facility] Repository (4 sources) Penicillin; Translations: [penicillin] Drug Allergy [facility] (20 sources) cefdinir Drug Allergy 2 [facility] (20 sources) Penicillins Drug Allergy 1 Rash [facility] (1 source) No Known Medication Allergies; Translations: [No Known Medication Allergies] Propensity to adverse reactions (disorder) [facility] Repository (1 source) Penicillins Drug allergy (disorder) 4 [facility] Repository Medications Current Medications Medication Drug Class(es) Dates Sig (Normalized) Sig (Original) acetaminophen 325 mg oral tablet (20 sources) acetaminophen (Tylenol) 325 MG tablet Active albuterol 0.83 mg/ml inhalation solution (20 sources) beta2-Adrenergic Agonist Start: 01-18-2023 End: 01-18-2024 albuterol (2.5 MG/3ML) 0.083% nebulizer solution Indications: Shortness of breath Take 3 mL (2.5 mg) by nebulization every 6 (six) hours if needed for wheezing. 75 mL 11 01/18/2023 Active Start: 01-01-2023 take 2 puff(s) by in halation every four hours albuterol HFA 90 mcg/act inhaler Indications: Acute cough Inhale 2 puffs every 4 (four) hours if needed (cough). 18 g 3 01/01/2023 Active Start: 01-31-2020 End: 02-29-2020 take 1 puff(s) by inhalation four times daily as needed for wheezing Albuterol Sulfate 90 mcg/actuation HFA aerosol inhaler Discontinued 2 PUFF INHALATION Four times daily as needed for shortness of breath or wheezing January 31, 2020 6:10pm February 29, 2020 10:26am Start: 12-13-2018 Albuterol Sulf ate Active 2 INH Inhalation EVERY 4-6 HOURS December 13, 2018 4:27pm Start: 12-13-2018 End: 09-18-2019 Albuterol Sulfate 90 mcg/act uation HFA aerosol inhaler Discontinued 2 INH INHALATION EVERY 4-6 HOURS as needed for shortness of breath or wheezing December 13, 2018 12:00am September 18, 2019 9:43pm benzonatate 200 mg oral capsule (8 sources) Non-narcotic Antitussive Start: 04-08-2022 take 1 capsule by mouth three times daily as needed for cough Benzonatate 200 mg capsule Active 200 MG PO Three times daily as needed for cough April 08, 2022 1:00am Start: 05-10-2017 End: 07-19-2017 take 1 capsule by mouth three times daily Benzonatate (Tessalon Perles) 100 mg capsule Discontinued 100 MG PO Three times daily May 10, 2017 1:00am July 19, 2017 12:58pm 24 hr buPROPion hydrochloride 150 mg extended release oral tablet (18 sources) Aminoketone Start: 08-10-2024 take 1 tablet by mouth twice daily buPROPion XL (Wellbutrin XL) 150 MG 24 hr tablet Indications: Anxiety 1 tab po bid 180 tablet 1 08/10/2024 Active Start: 11-10-2023 End: 08-10-2024 buPROPion XL (Wellbutrin XL) 150 MG 24 hr tablet Indications: Anxiety 2 tabs in am, 1 tab in pm 270 tablet 1 12/31/2023 08/10/2024 Discontinued (Reorder) busPIRone hydrochloride 10 mg oral tablet (20 sources) Start: 11-10-2023 End: 08-10-2024 take 1 tablet by mouth in the morning, then take 1 tablet by mouth in the evening, then take 1 tablet by mouth at bedtime busPIRone (Buspar) 10 MG tablet Indications: Anxiety Take 1 tablet (10 mg) by mouth in the morning and 1 tablet (10 mg) in the evening and 1 tablet (10 mg) before bedtime. 90 tablet 3 08/10/2024 Active Start: 05-26-2023 take 1 tablet by [...] 2021 12:02pm Start: 06-09-2018 End: 08-09-2018 take 1 capsule by mouth once daily Duloxetine 60 mg Capsule,Delayed Release(Dr/Ec) Discontinued 60 MG PO Daily June 09, 2018 1:00am August 09, 2018 2:38pm Start: 07-19-2017 End: 07-25-2017 take 10 mg by mouth once daily Duloxetine 20 mg Capsul e,Delayed Release(Dr/Ec) Discontinued 10 MG PO Daily July 19, 2017 12:00am July 25, 2017 9:23pm Start: 07-19-2017 End: 07-25-2017 take 10 mg by mouth once daily Duloxetine Discontinued 10 MG PO Daily July 19, 2017 12:00am July 25, 2017 9:23pm 24 hr etodolac 500 mg extended release oral tablet (16 sources) Nonsteroidal Anti-inflammatory Drug Start: 09-15-2023 End: 08-10-2025 take 1 tablet by mouth once daily etodolac XL (Lodine XL) 500 MG 24 hr tablet Indications: Trochanteric bursitis of right hip , S/P lateral meniscus repair of right knee Take 1 tablet (500 mg) by mouth Daily 30 tablet 11 08/10/2024 08/10/2025 Active Etonogestrel (Nexplanon) 68 mg Implant (4 sources) Start: 02-29-2020 Etonogestrel (Nexplanon) 68 mg Implant Active 1 IMPLANT SUBDERMAL Once February 29, 2020 1:00am Start: 02-29-2020 Etonogestrel ( Nexplanon) 68 mg Implant Active 1 IMPLANT SUBDERMAL Once February 29, 2020 12:00am fluticasone propionate 0.05 mg/actuat metered dose nasal spray (4 sources) Corticosteroid Start: 08-19-2024 take 1-2 spray(s) nasal route once daily fluticasone (Flonase) 50 MCG/ACT nasal spray Indications: PND (post-nasal drip) Administer 1-2 sprays into each nostril Daily Shake gently. Before first use, prime pump. After use, clean tip and replace cap. 16 g 08/19/2024 Active meclizine hydrochloride 25 mg oral tablet (2 sources) Antiemetic Start: 08-28-2024 End: 08-28-2025 take 1 tablet by mouth three times daily as needed for dizziness meclizine (Antivert) 25 MG tablet Indications: Vertigo Take 1 tablet (25 mg) by mouth 3 (three) times a day as needed for dizziness 30 tablet 1 08/28/2024 08/28/2025 Active 1 ml medroxyPROGESTERone acetate 150 mg/ml prefilled syringe (20 sources) Progestin Start: 11-10-2023 End: 08-16-2024 medroxyPROGESTERone (Depo-Provera) 150 MG/ML suspension prefilled syringe injection syringe Indications: Encounter for surveillance of injectable contraceptive Inject 1 mL (150 mg) into the shoulder, thigh, or buttocks 1 (one) time for 1 dose 1 mL 3 08/16/2024 Active Start: 08-26-2022 inject 1 mL by [...] 0 02/10/2023 02/10/2024 Active ondansetron 4 mg disintegrating oral tablet (14 sources) Serotonin-3 Receptor Antagonist Start: 08-19-2024 End: 08-26-2024 take 1 tablet by mouth every eight hours for nausea ondansetron ODT (Zofran-ODT) 4 MG disintegrating tablet Indications: Gastroenteritis Take 1 tablet (4 mg) by mouth every 8 (eight) hours if needed for nausea or vomiting for up to 7 days 21 tablet 08/19/2024 08/26/2024 Active Start: 04-12-2022 End: 02-01-2024 take 1 tablet by mouth every eight hours as needed for nausea and vomiting Ondansetron Hcl 4 mg tablet Active 4 MG PO Q8H as needed for nausea and vomiting 24 08April 12, 2022 1:00am Start: 04-08-2022 take 1 tablet by shirlene th every six hours as needed for nausea and vomiting Ondansetron 4 mg tablet,disintegrating Active 4 MG PO Q6H as needed for nausea and vomiting April 08, 2022 1:00am oseltamivir 75 mg oral capsule (7 sources) Neuraminidase Inhibitor Start: 04-12-2022 take 1 capsule by mouth every twelve hours Oseltamivir (Tamiflu) 75 mg capsule Active 75 MG PO Q12H 10 April 12, 2022 1:00am Start: 05-10-2017 End: 05-15-2017 take 1 capsule by mouth twice daily Oseltamivir (Tamiflu) 75 mg capsule Discontinued 75 MG PO Twice daily 10 May 10, 2017 1:00am May 14, 2017 1:00am May 15, 2017 1:04am Pnv b#95-Ferrous Fumarate-Fa (1 source) Start: 09-03-2018 take 1 tablet by mouth once daily Pn Cmb#95-Ferrous Fumarate-Fa Active 1 TAB Oral Daily September 03, 2018 1:03pm predniSONE 20 mg oral tablet (8 sources) Start: 01-06-2024 take 2 tablets by mouth once daily at mealtime Prednisone 20 mg tablet Active 40 MG PO Daily January 06, 2024 12:00am administer with food or milk Start: 01-06-2024 take 40 mg by mouth once daily at mealtime Prednisone Active 40 MG PO Daily January 06, 2024 12:00am administer with food or milk Start: 05-20-2023 take 5 tablets by mo uth once daily, then take 4 tablets by [...] Active rimegepant 75 mg disintegrating oral tablet (14 sources) Start: 10-04-2023 take 1 tablet by mouth every other day Rimegepant Sulfate (Nurtec) 75 MG tablet dispersible Indications: Acute migraine (CMS/HCC) Take 1 tablet by mouth every other day 30 tablet 11 10/04/2023 Active sucralfate 1000 mg oral tablet (4 sources) Aluminum Complex Start: 11-10-2022 End: 11-17-2022 take 1 tablet by mouth four times daily sucralfate 1 g Tab 1 gm = 1 tab(s), Oral, QID, X 7 day(s), # 28 tab(s), Refills(s) 0 Start Date: 11/10/22 Stop Date: 11/17/22 Status: Ordered Start: 04-12-2022 take 1 tablet by shirlene th twice daily as needed Sucralfate (Carafate) 1 gram tablet Active 1 GM PO Twice daily as needed for abdominal discomfort 10 5 April 13, 2022 12:39am topiramate 25 mg oral tablet (16 sources) Start: 10-04-2023 End: 08-10-2025 take 1 tablet by mouth at bedtime topiramate (Topamax) 25 MG tablet Indications: Atypical migraine (CMS/HCC) Take 1 tablet (25 mg) by mouth at bedtime 30 tablet 11 08/10/2024 08/10/2025 Active traZODone hydrochloride 50 mg oral tablet (20 sources) Serotonin Reuptake Inhibitor Start: 08-06-2023 End: 08-10-2025 take 1 tablet by mouth at bedtime traZODone (Desyrel) 50 MG tablet Indications: Difficulty sleeping Take 1 tablet (50 mg) by mouth at bedtime 90 tablet 3 08/10/2024 08/10/2025 Active Start: 01-25-2023 take 0.5 tablet by [...] 05/12/2023 Discontinued cefdinir 300 mg oral capsule (4 sources) Cephalosporin Antibacterial Start: 09-17-2021 End: 10-26-2021 take 1 capsule by mouth twice daily Cefdinir 300 mg capsule Discontinued 300 MG PO Twice daily 20 September 17, 2021 12:00am October 26, 2021 12:03pm cephalexin 500 mg oral capsule (8 sources) Cephalosporin Antibacterial Start: 09-03-2018 End: 09-09-2018 [...] 9:24pm docusate sodium 100 mg oral capsule (5 sources) Start: 03-04-2019 End: 09-18-2019 take 1 capsule by mouth once daily at bedtime Docusate Sodium 100 mg Capsule Discontinued 100 MG PO Daily at bedtime March 04, 2019 1:00am September 18, 2019 9:43pm Norethindrone-Ethin Estradiol (4 sources) Estrogen Start: 05-10-2017 End: 07-25-2017 take [...] Estradi ol (Nuvaring) 0.12-0.015 mg/24 hr Ring (4 sources) Start: 03-18-2021 End: 04-07-2022 Etonogestrel-Ethinyl Estradi ol (Nuvaring) 0.12-0.015 mg/24 hr Ring Discontinued 1 VAG RING VAGINAL EVERY 4 WEEKS March 18, 2021 1:00am April 08, 2022 12:24am Start: 03-18-2021 End: 04-07-2022 Etonogestrel-Ethinyl Estradi ol (Nuvaring) 0.12-0.015 mg/24 hr Ring Discontinued 1 VAG RING VAGINAL EVERY 4 WEEKS March 18, 2021 12:00am April 07, 2022 11:24pm ferrous sulfate 325 mg oral tablet (4 sources) Start: 10-18-2017 End: 04-12-2018 take 1 tablet by mouth twice daily Ferrous Sulfate 325 mg (65 mg iron) Tablet Discontinued 325 MG PO Twice daily October 18, 2017 12:00am April 12, 2018 3:35am hydrOXYzine pamoate 50 mg oral capsule (4 sources) Antihistamine Start: 10-11-2018 End: 10-29-2018 take 1 capsule by mouth every eight hours as needed for anxiety Hydroxyzine Pamoate (Vistaril) 50 mg capsule Discontinued 50 MG PO Q8H as needed for anxiety October 11, 2018 12:00am October 29, 2018 12:32pm ibuprofen 600 mg oral tablet (20 sources) Nonsteroidal Anti-inflammatory Drug Start: 09-17-2021 End: 10-26-2021 take 1 tablet by mouth every eight hours as needed for pain Ibuprofen 600 mg tablet Discontinued 600 MG PO Q8H as needed for pain September 17, 2021 12:00am October 26, 2021 12:03pm Start: 02-29-2020 End: 03-18-2021 take 1 tablet by mouth three times daily Ibuprofen 600 mg tablet Discontinued 600 MG PO Three times daily February 29, 2020 1:00am March 18, 2021 10:50am Start: 09-18-2019 End: 02-29-2020 take 1 tablet by mouth three times daily as needed for pain Ibuprofen 800 mg Tablet Discontinued 800 MG PO Three times daily as needed for Pain September 18, 2019 12:00am February 29, 2020 10:26am Start: 03-03-2019 End: 09-18-2019 Ibuprofen 800 mg tablet Disc ontinued 800 MG PO every 6 to 8 hours as needed for pain March 03, 2019 1:00am September 18, 2019 9:43pm Start: 04-14-2018 End: 06-04-2018 take 1 tablet by mouth three times daily as needed for pain Ibuprofen 800 mg tablet Discontinued 800 MG PO Three times daily as needed for pain April 14, 2018 1:00am June 04, 2018 9:24pm Start: 02-22-2018 End: 03-13-2018 take 1 tablet by mouth three times daily as needed for pain Ibuprofen 600 mg tablet Discontinued 600 MG PO Three times daily as needed for pain February 23, 2018 12:44am March 13, 2018 8:19pm Start: 07-25-2017 End: 10-18-2017 take 1 tablet by mouth every eight hours as needed for pain Ibuprofen 600 mg tablet Discontinued 600 MG PO Q8H as needed for pain July 25, 2017 12:00am October 18, 2017 1:25pm Start: 05-10-2017 End: 07-19-2017 Ibuprofen 600 mg tablet Disc ontinued 600 MG PO every 6 to 8 hours as needed for pain May 10, 2017 1:00am July 19, 2017 12:58pm End: 05-19-2023 ibuprofen 200 MG tablet Take 600 mg by mouth if needed for mild pain OTC 0 05/19/2023 Discontinued loratadine 10 mg oral tablet (20 sources) Start: 09-24-2022 End: 08-10-2024 take 1 tablet by mouth in the morning loratadine (Claritin) 10 MG tablet Indications: Ear itching , Seasonal allergies Take 1 tablet (10 mg) by mouth in the morning. 30 tablet 2 09/24/2022 08/10/2024 Discontinued methocarbamol 500 mg oral tablet (4 sources) Muscle Relaxant Start: 12-23-2019 End: 02-29-2020 take 1 tablet by mouth three times daily as needed for muscle spasms Methocarbamol 500 mg tablet Discontinued 500 MG PO Three times daily as needed for muscle spasm December 23, 2019 10:28am February 29, 2020 10:26am metoclopramide 10 mg oral tablet (4 sources) Dopamine-2 Receptor Antagonist Start: 03-28-2018 End: 04-12-2018 take 1 tablet by mouth every six hours as needed for nausea and vomiting Metoclopramide Hcl 10 mg tablet Discontinued 10 MG PO Q6H as needed for nausea and vomiting March 28, 2018 9:37pm April 12, 2018 3:35am minocycline 100 mg oral capsule (2 sources) Tetracycline-class Drug Start: 02-01-2023 End: 05-12-2023 take 1 capsule by mouth in the morning minocycline 100 MG capsule Indications: Acne vulgaris Take 1 capsule (100 mg) by mouth in the morning. 30 capsule 2 02/01/2023 05/12/2023 Discontinued naproxen 500 mg oral tablet (4 sources) Nonsteroidal Anti-inflammatory Drug Start: 07-19-2017 End: 07-25-2017 take 1 tablet by mouth twice daily at mealtime Naproxen 500 mg tablet Discontinued 500 MG PO Twice daily July 19, 2017 12:00am July 25, 2017 9:23pm administer with food or milk nicotine 2 mg chewing gum (4 sources) Cholinergic Nicotinic Agonist Start: 06-09-2018 End: 06-21-2018 Nicotine (Polacrilex) (Nicorelief) 2 mg Gum Discontinued 2 MG BUCCAL Every 2 hours as needed for Nicotine Cravings 60 June 09, 2018 1:00am June 21, 2018 8:44pm nitrofurantoin, macrocrystals 25 mg / nitrofurantoin, monohydrate 75 mg oral capsule (8 sources) Nitrofuran Antibacterial Start: 11-11-2018 End: 11-21-2018 [...] () 28 mg iron- 800 mcg Tablet (4 sources) Start: 09-03-2018 End: 09-18-2019 take 1 [...] 02, 2018 11:00pm September 18, 2019 8:43pm (4 sources) Start: 10-18-2017 End: 04-12-2018 take 2 [...] Status: Ordered Start: 03-18-2021 End: 10-26-2021 take 1 tablet by mouth four times daily as needed for nausea and vomiting Promethazine 25 mg tablet Discontinued 25 MG PO Four times daily as needed for nausea and vomiting March 18, 2021 11:51am October 26, 2021 12:03pm Start: 08-16-2018 End: 09-03-2018 take 1 tablet by mouth every six hours as needed for nausea and vomiting Promethazine 25 mg tablet Discontinued 25 MG PO Q6H as needed for nausea and vomiting August 16, 2018 12:00am September 03, 2018 12:07pm Start: 08-16-2018 End: 09-03-2018 Promethazine (Phenergan) 25 mg suppository Discontinued 25 MG [place] Q4H as needed for nausea and vomiting August 16, 2018 12:00am September 03, 2018 12:07pm Start: 08-09-2018 End: 09-03-2018 take 1 tablet by mouth three times daily as needed for nausea and vomiting Promethazine 25 mg tablet Discontinued 25 MG PO Three times daily as needed for nausea and vomiting August 09, 2018 12:00am September 03, 2018 12:07pm Start: 03-13-2018 End: 04-12-2018 take 1 tablet by mouth every six hours as needed for nausea and vomiting Promethazine 25 mg tablet Discontinued 25 MG PO Q6H as needed for nausea and vomiting March 13, 2018 1:00am April 12, 2018 3:35am tiZANidine 4 mg oral tablet (8 sources) Central alpha-2 Adrenergic Agonist Start: 09-14-2023 End: 08-10-2024 take 1 tablet by mouth every eight hours as needed for muscle spasms and muscle spasms tiZANidine (Zanaflex) 4 MG tablet Indications: Muscle spasm Take 1 tablet (4 mg) by mouth every 8 (eight) hours if needed for muscle spasms for up to 10 days 30 tablet 09/14/2023 08/10/2024 Discontinued traMADol hydrochloride 50 mg oral tablet (4 sources) Opioid Agonist Start: 11-11-2018 End: 11-21-2018 take 1 tablet by mouth every eight hours as needed for pain Tramadol (Ultram) 50 mg tablet Discontinued 50 MG PO Q8H as needed for pain 6 2 November 11, 2018 12:00am November 21, 2018 4:11pm Vitamin D3 (4 sources) Start: 10-18-2017 End: 04-12-2018 take 21236 [IU] by mouth once daily Vitamin D3 Discontinued [id number] UNIT PO Daily October 18, 2017 12:00am April 12, 2018 3:35am Start: 10-18-2017 End: 04-12-2018 take [id number] [IU] by mouth once daily Vitamin D3 Discontinued [id number] UNIT PO Daily October 17, 2017 11:00pm April 12, 2018 2:35am Problems Active Problems Problem Classification Problem Date Documented Date Episodic/Chronic Abdominal pain (1 source) Abdominal pain; Translations: [Unspecified abdominal pain] Onset: 11-10-2022 Episodic Anxiety disorders (20 sources) Mixed anxiety and depressive disorder; Translations: [Anxiety] Onset: 12-17-2016 10-11-2018 Chronic Conditions associated with dizziness or vertigo (2 sources) Vertigo; Translations: [Dizziness and giddiness] 08-28-2024 Episodic Contraceptive and procreative management (3 sources) Contraception ; Translations: [Encounter for surveillance of injectable contraceptive] 08-16-2024 Episodic Fever of unknown origin (3 sources) Fever; Translations: [Fever, unspecified] 04-12-2022 Episodic Headache; including migraine (2 sources) Migraine; Translations: [Migraine without aura, not intractable, without status migrainosus] 08-10-2024 Chronic Headache; including migraine (11 sources) Headache; Translations: [Headache] 07-19-2017 Episodic Miscellaneous mental health disorders (20 sources) Dissociative convulsions; Translations: [Conversion disorder with seizures or convulsions] Onset: 11-14-2018 07-20-2017 Chronic Mood disorders (20 sources) Severe major depression; Translations: [Major depressive disorder, single episode, severe without psychotic features] Onset: 11-25-2022 06-05-2018 Chronic Noninfectious gastroenteritis (2 sources) Gastroenteritis; Translations: [Noninfective gastroenteritis and colitis, unspecified] 08-19-2024 Episodic Other acquired deformities (2 sources) Levoscoliosis; Translations: [Other forms of scoliosis, site unspecified] 05-12-2023 Chronic Other bone disease and musculoskeletal deformities (20 sources) Scoliosis of lumbar spine; Translations: [Other idiopathic scoliosis, lumbar region] Onset: 09-09-2022 09-09-2022 Chronic Other complications of (4 sources) Vomiting of , unspecified; Translations: [VOMITING OF UNSPECIFIED] Onset: 09-10-2018 Episodic Other complications of (5 sources) Vomiting of ; Translations: [Vomiting of , unspecified] 08-16-2018 Episodic Other connective tissue disease (5 sources) Pain in lower limb; Translations: [Pain [...] hip] 05-19-2023 Episodic Other upper respiratory infections (17 sources) Upper respiratory infection; Translations: [Acute upper respiratory infection, unspecified] 01-31-2020 Episodic Otitis media and related conditions (4 sources) Acute left otitis media; Translations: [Otitis media, unspecified, left ear] 09-17-2021 Episodic Poisoning by other medications and drugs (5 sources) Acetaminophen overdose; Translations: [Poisoning by 4-Aminophenol derivatives, accidental (unintentional), initial encounter] 06-05-2018 Episodic Residual codes; unclassified (1 source) Tobacco user; Translations: [Chews tobacco] Chronic Residual codes; unclassified (4 sources) Tobacco user; Translations: [Tobacco use] 06-05-2018 Episodic Residual codes; unclassified (2 sources) Body mass index 20-24 - normal; Translations: [Body mass index (BMI) 21.0-21.9, adult] 05-25-2023 Episodic Residual codes; unclassified (4 sources) Difficulty sleeping ; Translations: [Sleep disorder, unspecified] 12-31-2023 Episodic Residual codes; unclassified (1 source) 12 weeks gestation of ; Translations: [12 WEEKS GESTATION OF ] Onset: 09-13-2018 Screening and history of mental health and substance abuse codes (1 source) Personal history of nicotine dependence; Translations: [PERSONAL HISTORY OF NICOTINE DEPEND] Onset: 09-13-2018 Episodic Sprains and strains (14 sources) Sprain of knee; Translations: [Sprain of unspecified site of unspecified knee, initial encounter] Onset: 05-27-2023 07-25-2017 Episodic Substance-related disorders (20 sources) Cannabis abuse; Translations: [Cannabis abuse, uncomplicated] Onset: 09-24-2022 01-17-2019 Chronic Comment on above: Added secondary to d ocumentation in Social History. Suicide and intentional self-inflicted injury (1 source) Suicidal intent; Translations: [Feeling like committing suicide] Chronic Suicide and intentional self-inflicted injury (4 sources) Suicidal intent; Translations: [Suicidal ideations] 06-05-2018 Episodic Unclassified (1 source) Other low back pain; Translations: [Other low back pain] Onset: 01-06-2024 Urinary tract infections (5 sources) Urinary tract infectious disease; Translations: [Urinary tract infection, site not specified] 07-20-2017 Episodic Past or Other Problems Problem Classification Problem Date Documented Date Episodic/Chronic Genitourinary symptoms and ill-defined conditions (20 sources) Dysuria; Translations: [Dysuria] Onset: 02-01-2023 Resolved: 05-26-2023 02-01-2023 Episodic Inflammatory diseases of female pelvic organs (20 sources) Acute vaginitis; Translations: [Acute vaginitis] Onset: 01-01-2023 Resolved: 05-26-2023 01-01-2023 Episodic Influenza (18 sources) Influenza; Translations: [Influenza due to Influenza A virus] Onset: 08-19-2024 Resolved: 08-19-2024 04-08-2022 Episodic Nonspecific chest pain (9 sources) Chest pain; Translations: [Chest pain, unspecified] Onset: 08-19-2024 Resolved: 08-19-2024 04-12-2022 Episodic Other complications of (11 sources) Complication of , childbirth and/or the puerperium; Translations: [Other specified related conditions, unspecified trimester] Onset: 08-19-2024 Resolved: 08-19-2024 09-03-2018 Episodic Other complications of (11 sources) Asymptomatic bacteriuria in ; Translations: [Asymptomatic bacteriuria during ] Onset: 08-19-2024 Resolved: 08-19-2024 09-03-2018 Episodic Other connective tissue disease (20 sources) Trochanteric bursitis of right hip; Translations: [Trochanteric bursitis, right hip] Onset: 05-31-2023 05-19-2023 Episodic Other connective tissue disease (20 sources) Bursitis of olecranon of left elbow; Translations: [Olecranon bursitis, left elbow] Onset: 09-09-2022 Resolved: 11-25-2022 11-25-2022 Episodic Other injuries and conditions due to external causes (10 sources) Injury of rotator cuff; Translations: [Unspecified injury of muscle(s) and tendon(s) of the rotator cuff of unspecified shoulder, initial encounter] Onset: 08-19-2024 Resolved: 08-19-2024 09-18-2019 Episodic Other lower respiratory disease (12 sources) Cough; Translations: [Acute cough] Onset: 01-01-2023 Resolved: 05-26-2023 01-01-2023 Episodic Other lower respiratory disease (14 sources) Cough; Translations: [Acute cough] Onset: 01-01-2023 Resolved: 05-26-2023 05-26-2023 Episodic Other non-traumatic joint disorders (14 sources) Pain in right knee; Translations: [Pain in joint, lower leg] Onset: 05-31-2023 08-20-2023 Episodic Other skin disorders (20 sources) Acne vulgaris; Translations: [Acne vulgaris] Onset: 02-01-2023 02-01-2023 Episodic Residual codes; unclassified (14 sources) History of arthroscopy of knee joint; Translations: [Other specified postprocedural states] Onset: 08-20-2023 08-20-2023 Episodic Spondylosis; intervertebral disc disorders; other back problems (20 sources) Sciatica; Translations: [Other specified dorsopathies, lumbosacral region] Onset: 09-09-2022 09-09-2022 Episodic Superficial injury; contusion (10 sources) Contusion of hand; Translations: [Contusion of right hand, initial encounter] Onset: 08-19-2024 Resolved: 08-19-2024 10-26-2021 Episodic Results Test Name Value Interpretation Reference Range Facility S. pyogenes DNA BARBI+probe No m (Unsp spec)on 08-19-2024 Interpretation and review of laboratory results Normal [facility] RESULT Negative Negative [facility] HCG ( test) Ql (U)o n 08-16-2024 Preg Test, Ur Negative Negative [facility] HCG ( test) Ql (U)o n 08-10-2024 Preg Test, Ur Negative Negative [facility] Urine Cultureon 07-03-2024 Bacteria identified Cx Nom (U) 50,000 colonies/ml mixed bacterial skin contaminants 2 Days PERFORMED BY: [facility] [address] [place] [address] PATHOLOGIST INSIDE [employer] DARIAN ZAMUDIO M.D. Normal [facility] Comment on above: Performed By: #### C UU #### [facility] [address] HEPATITIS B SURF AB QUANTon 05-25-2024 HEPATITIS B SURF AB QUANT 9.1 Abnormal Immunity>10 mIU/mL [facility] Comment on above: Status of Immunity Anti-HBs Level Inconsistent with Immunity 0.0 - 10.0 Consistent with Immunity >10.0 Interpretation and review of laboratory results Abnormal [facility] MEASLES/MUMPS/RUBELLA IMMUNI TYon 05-25-2024 MEASLES ANTIBODIES, IGG >300.0 Immu ne >16.4 AU/mL [facility] Comment on above: Negative <13.5 Equivocal 13.5 - 16.4 Positive >16.4 Presence of antibodies to Rubeola is presumptive evidence of immunity except when acute infection is suspected. MUMPS ABS, IGG 69.4 AU/mL Immune >10.9 [facility] Comment on above: Negative <9.0 Equivocal 9.0 - 10.9 Positive >10.9 A positive result generally indicates past exposure to Mumps virus or previous vaccination. Performed at: [facility] [id number] Bologna Maker: Nikita Humphries PhD, Phone: [phone] RUBELLA ANTIBODIES, IGG 2.80 Immu ne >0.99 index [facility] Comment on above: Non-immune <0.90 Equivocal 0.90 - 0.99 Immune >0.99 No Panel Informationon 05-25 [facility] VARICELLA-ZOSTER V AB, IGGon 05-25-2024 VARICELLA-ZOSTER V AB, IGG Non-Reactive Non Reactive [facility] Comment on above: Please note refere nce interval change A Reactive result is considered evidence of immunity to VZV. Reactive indicates that VZV IgG was detected consistent with previous infection and/or vaccination. A Non Reactive result indicates that VZV IgG was not detected suggesting that immunity has not been acquired. Performed at: [facility] [id number] Bologna Maker: Nikita Humphries PhD, Phone: [phone] XR Chest 2 Viewson 4 XR Chest 2 Views Exam Date/Time: 10/07/2023 [...] mGy = . DAP = . Normal [facility] Consent for Treatmenton 05-13 Consent for Treatment [id number] .00TIFF Normal [facility] Discharge Instructionson Discharge Instructions [id number]# 1.00TIFF Normal [facility] ED Clinical Summaryon 2023 ED Clinical Summary [place] [id number] ED Clinical Summary Person Information Name: MAURY COLLAZO Lisa/[facility] Age: 22 Years : 2000 Sex: Female Language: Puerto Rican PCP: Bella Camara MD Marital Status: Single [...] 05/27/2023 13:04:43 ADDRESS: [address] [place] [id number] PHYS DOC NOTES: MEDICAL INFORMATION: Prescriptions Given: Medications to Continue with No Changes Other Medications promethazine (promethazine 25 mg Tab) 1 Tablets By Mouth every 6 hours as needed as needed for nausea/vomiting. Refills: 0. PATIENT EDUCATION INFORMATION: Instructions: Knee Sprain, Adult Follow up: With: Address: When: [place] [address] [email or web address] (1) In 3 days 05/30/2023 DIAGNOSIS: Knee sprain Normal [facility] ED Noteon 05-27-2023 ED Note [id number]# 1.00TIFF Normal [facility] ED Note-Physicianon 05-27-19 ED Note-Physician Basic [...] medications Follow-up With When Contact Information Russell Cahvez In 3 days 05/30/2023 EST [address] [place] [address]I Had Cancer Business (1) Additional Instructions: Patient Education Knee [...] made to ensure accuracy, however, inadvertently computerized finisher brush mistakes may be present. Appropriate healthcare PPE [...] Kalin Goldberg MD 05/27/23 11:41:53 Radiation Dose: Kar in mGy = na DAP = na Signed By: Kalin Goldberg MD [facility] Comment on above: Result Comment: Elec [...] or lying down. General instructions ? Take vuxw-tur-btfsasu and prescription medicines only as told by [...] provider. Document Revised: 07/06/2022 Document Reviewed: 02/16/2020 [employer] Patient Education ? 2022 [employer]. Normal [facility] ED Patient Summaryon 024 ED Patient Summary [address] [address] Patient Discharge Instructions Person Information Name: MAURY COLLAZO Age: 22 Years Arrival Date: 05/27/2023 11:15:44 Discharge Diagnosis: Knee sprain Primary Care Physician: Bella Camara MD Provider Information Primary Provider: Michael Hannah M.D. Advanced Spectroscopist:Pola Purcell PA-C The exam and treatment you received in the Emergency Department were for an urgent problem and are not intended as complete care. It is important that you follow up with a doctor, nurse practitioner, or physician?s administrative assistant office manager for ongoing care. If your symptoms become worse or you do not improve as expected and you are unable to reach your usual health care provider, you should return to the Emergency Department. We are available 24 hours a day. PABLO MAURY Shawn has been given the following list of patient education materials, prescriptions and follow-up instructions: Follow-up Instructions: With: Address: When: Russell Chavez [address] [place] [address] Business (1) In 3 days 05/30/2023 In the event that this physician does not participate in your insurance network, please consult with your insurance company to find a nearby participating provider. Patient Education Materials: Knee Sprain, Adult A MESSAGE TO ALL PATIENTS REGARDING OPIOIDS PRESCRIPTION OPIOIDS: WHAT YOU NEED TO KNOW Prescription opioids can be used to help relieve yaxaucga-at-lhkotb pain and are often prescribed following a [...] be struggling with addiction, tell your health cardiac care unit nurse and ask for guidance or call [facility]?S [employer] Helpline at [phone]. y Source: [facility] (more content not included)... Normal [facility] XR Knee Complete 4+ Views Sd tano 05-27-2023 XR Knee Complete 4+ Views [...] mGy = na DAP = na Normal [facility] XR Hip - right 3 [facility] Result: AP pelvis bilateral hip and frog view of the right hip taken in the office today which do not demonstrate any congenital abnormalities with a femoral head or acetabulum no evidence of acute fracture or bony tumor seen. [facility] Radiology Study observation (narrative) [facility] XR Lumbar spine 4 [facility] Result: AP lateral and oblique of the lumbar spine taken in the office which he end demonstrates no change in her thoracolumbar scoliosis she does have noted Schmorl nodes multiple discs and developing some early facet hypertrophy in the lumbar spine [facility] Radiology Study observation (narrative) [facility] XR Chest Single Viewon 11-11 XR Chest [...] mGy = na DAP = na Normal [facility] Auto Diffon 11-10-2022 Basophils/100 WBC (Bld) 0.5 % Normal 0.0-2.0 [facility] Comment on above: Order Comment: Order Added by Discern Expert. Performed By: #### 2 335269, 6906918, 83364021, 1358356, 0519431, 53307867, 5743674, 2489591 ####[facility] [address] [place] [address] Basophils/Leukocytes Auto (Bld) [Pure # fraction] 0.0 E9/L Normal 0.0-0.[address] [facility] Comment on above: Order Comment: Order Added by Discern Expert. Performed By: #### 2 703159, 1609743, 25249262, 3715617, 0677437, 92885577, 6301308, 1131486 ####[facility] [address] [place] [address] Eosinophils/100 WBC (Bld) 1.0 % Normal 0.0-8.[address] [facility] Comment on above: Order Comment: Order Added by Discern Expert. Performed By: #### 2 775532, 5626277, 08057328, 2367609, 3100405, 55594590, 4369427, 1324134 ####[address] [address] Eosinophils/Leukocytes Auto (Bld) [Pure # fraction] 0.1 E9/L Normal 0.0-0.[address] [facility] Comment on above: Order Comment: Order Added by Discern Expert. Performed By: #### 2 031773, 3329803, 45164282, 4325027, 0214994, 92260300, 6024662, 9009146 ####[address] [address] Lymphocytes/100 WBC (Bld) 26.5 % Normal 14.0-50.[address] [facility] Comment on above: Order Comment: Order Added by Discern Expert. Performed By: #### 2 136228, 5052218, 10061640, 7043750, 9069530, 19408005, 5170608, 9414895 ####[address] [address] Lymphocytes/Leukocytes Auto (Bld) [Pure # fraction] 2.3 E9/L Normal 1.0-4.[address] [facility] Comment on above: Order Comment: Order Added by Discern Expert. Performed By: #### 2 846780, 3971996, 05080043, 2305286, 7830481, 62915674, 6227339, 1192521 ####[address] [address] Monocytes/100 WBC (Bld) 5.2 % Normal 4.0-14.0 [facility] Comment on above: Order Comment: Order Added by Discern Expert. Performed By: #### 2 225492, 7274977, 90897916, 1718876, 7082204, 65774390, 8058814, 1630097 ####[facility] [address] [place] [address] Monocytes/Leukocytes Auto (Bld) [Pure # fraction] 0.4 E9/L Normal 0.2-1.[address] [facility] Comment on above: Order Comment: Order Added by Discern Expert. Performed By: #### 2 515476, 0118644, 83823381, 3228001, 0043353, 91055535, 2852466, 9848556 ####[place] [address] [place] [address] Neutrophils/100 WBC (Bld) 66.8 % Normal 36.0-75.[address] [facility] Comment on above: Order Comment: Order Added by Discern Expert. Performed By: #### 2 435820, 0051817, 46301611, 9240192, 3079098, 16454334, 0261284, 8969681 ####[place] [address] [place] [address] Neutrophils/Leukocytes Auto (Bld) [Pure # fraction] 5.7 E9/L Normal 2.0-7.[address] [facility] Comment on above: Order Comment: Order Added by Discern Expert. Performed By: #### 2 294690, 0220332, 14705756, 7333787, 2276250, 10690202, 9495935, 7097636 ####[facility] [address] [place] [address] BMPon 11-10-2022 Creatinine [Mass/Vol] 0.8 mg/dL Normal 0.5-1.3 [facility] Comment on above: Performed By: #### 2 078032, 6140205, 74936663, 5472538, 9976071, 85619042, 9274044, 7925865 ####[facility] [address] [place] [address] Urea nitrogen [Mass/Vol] 13 mg/dL Normal 5-[address] [facility] Comment on above: Performed By: #### 2 532447, 9492993, 74342423, 4730589, 1117442, 45041686, 4999732, 2195489 ####[facility] [address] [place] [address] Urea nitrogen/Creatinine [Mass ratio] 16 No Units Normal 10-[address] [facility] Comment on above: Performed By: #### 2 124747, 2413616, 79471009, 9888344, 2474586, 93872763, 5513632, 3244713 ####[facility] [address] [place] [address] Anion gap [Moles/Vol] 13 mmol/L Normal 6-16 [facility] Comment on above: Performed By: #### 2 594231, 3358335, 70303541, 0173408, 7047465, 37081501, 1075608, 6385186 ####[facility] [address] [place] [address] Calcium [Mass/Vol] 9.7 mg/dL Normal 8.9-11.[address] [facility] Comment on above: Performed By: #### 2 473141, 4850868, 92547821, 9825672, 6002302, 85747304, 5626467, 8218395 ####[facility] [address] [place] [address] Chloride [Moles/Vol] 105 mmol/L Normal 101-111 [facility] Comment on above: Performed By: #### 2 199805, 0097708, 49106339, 2881433, 8889662, 45735630, 6073161, 2812678 ####[facility] [address] [place] [address] CO2 [Moles/Vol] 24 mmol/L Normal 21-31 [facility] Comment on above: Performed By: #### 2 833359, 8396937, 27761286, 6568234, 6198923, 24135542, 6393718, 5127199 ####[facility] [address] [place] [address] Glucose [Mass/Vol] 96 mg/dL Normal 55-[address] [facility] Comment on above: Result Comment: If t his glucose result represents a fasting glucose, interpretation should refer to the following reference range: 55-99 mg/dL Performed By: #### 2 910415, 9077381, 54817674, 0281992, 5198232, 67266335, 0334486, 0571378 ####[facility] [address] [place] [address] Potassium [Moles/Vol] 3.8 mmol/L Normal 3.5-5.3 [facility] Comment on above: Performed By: #### 2 175015, 4305534, 65112054, 4092054, 1706862, 62474341, 7950065, 8229890 ####[facility] [address] [place] [address] Sodium [Moles/Vol] 138 mmol/L Normal 135-[address] [facility] Comment on above: Performed By: #### 2 740084, 4178203, 76928623, 7423882, 6280105, 82462094, 7932931, 2672325 ####[facility] [address] [place] [address] CBC w/ Auto Diffon 3 Erythrocyte distribution width (RBC) [Ratio] 13.5 % Normal 10.9-14.[address] [facility] Comment on above: Performed By: #### 2 828214, 9083037, 52601106, 2609344, 9814049, 17478830, 7201343, 7446184 ####[facility] [address] [place] [address] Hematocrit (Bld) [Volume fraction] 40.4 % Normal 34.0-46.[address] [facility] Comment on above: Performed By: #### 2 930038, 6582297, 17652928, 5402016, 2245218, 73202432, 5795491, 7410176 ####[facility] [address] [place] [address] Hemoglobin (Bld) [Mass/Vol] 13.7 g/dL Normal 12.0-16.[address] [facility] Comment on above: Performed By: #### 2 565532, 3404018, 56854938, 4449162, 2399659, 60707199, 1486052, 3877786 ####[facility] [address] [place] [address] MCH (RBC) [Entitic mass] 30.0 pg Normal 27.0-34.[address] [facility] Comment on above: Performed By: #### 2 234599, 3871677, 50854694, 5558298, 3062993, 09875828, 4744892, 1375393 ####[place] [address] [place] [address] MCHC (RBC) [Mass/Vol] 33.9 g/dL Normal 31.4-36.0 [facility] Comment on above: Performed By: #### 2 206769, 7268516, 00134474, 9704485, 3504687, 70323014, 0717195, 7257477 ####[address] [address] MCV (RBC) [Entitic vol] 88.6 fL Normal 80.0-100.0 [facility] Comment on above: Performed By: #### 2 790825, 5853101, 64033247, 8586233, 0110870, 98038755, 6066074, 7585815 ####[place] [address] [place] [address] Platelet mean volume (Bld) [Entitic vol] 10.8 fL Normal 6.4-10.[address] [facility] Comment on above: Performed By: #### 2 103681, 8012803, 93659209, 8119803, 1077798, 49880973, 0765470, 3549746 ####[facility] [address] [place] [address] Platelets (Bld) [#/Vol] 192.0 E9/L Normal 150.0-500.[address] [facility] Comment on above: Performed By: #### 2 034078, 2885638, 34843610, 2625395, 5858048, 38320106, 8639088, 4254727 ####[facility] [address] [place] [address] RBC (Bld) [#/Vol] 4.6 E12/L Normal 4.3-5.[address] [facility] Comment on above: Performed By: #### 2 853607, 1914413, 83800357, 3600191, 1177825, 29186190, 0584913, 2849151 ####[facility] [address] [place] [address] WBC corrected for nucl RBC Auto (Bld) [#/Vol] 8.5 E9/L Normal 4.0-11.0 [facility] Comment on above: Result Comment: Slid e reviewed by FREDRICK. Performed By: #### 2 860212, 3429639, 15513647, 7270154, 1648375, 79436937, 2048862, 2854055 ####[facility] [address] [place] [address] CHEMISTRYOrdered By: SYSTEM SYSTEM on 11-10-2022 Albumin [...] FEU Low 215 - 500 ng/mL FEU [facility] Auto Coag Consent for Treatmenton Consent for Treatment [id number] .00CD:[address] [facility] D-Dimeron 11-10-2022 Fibrin D-dimer FEU (PPP) [Mass/Vol] <215 Low 215-[address] [facility] Comment on above: Result Comment: This [...] infections Liver cirrhosis Performed By: #### 2 663546, 6168267, 26039329, 1999502, 7918083, 47158825, 5719882, 5506574 ####[facility] [address] [place] [address] Discharge Instructionson Discharge Instructions [id number]# 1.00CD:[address] [facility] ED Clinical Summaryon 2022 ED Clinical Summary [place] [id number] ED Clinical Summary Person Information Name: MAURY COLLAZO Lisa/[facility] Age: 22 Years : 2000 Sex: Female Language: Puerto Rican PCP: Bella Camara MD Marital Status: Single [...] 11/10/2022 19:05:26 11/10/2022 19:05:26 11/10/2022 19:05:26 ADDRESS: [facility] [address] [id number] PHYS DOC NOTES: MEDICAL INFORMATION: Prescriptions Given: [...] With: Address: When: Bella [place] [address] [email or web address] (1CXOWARE In 3 days 11/13/2022 Comments: Retrurn to the emergency room if your shortness of breath recurs, abdominal pain recurs or any new symptoms. DIAGNOSIS: 1:Abdominal pain; 2:Shortness of breath Normal [facility] ED Note-Physicianon 11-11-19 ED Note-Physician Basic [...] and Complexity of Problems Differential Diagnosis: [] [facility] Data External documents reviewed: [] My [...] Contact I (more content not included)... Normal [facility] Comment on above: Result Comment: Elec tronically Signed By: Michael Hannah M.D..aldo\Date and Time Signed: 11/10/22 18:57 EDT ED [...] these instructions at home: Medicines ? Take vzty-wuy-rnpkggm and prescription medicines only as told by [...] your condition for any changes. ? Take ylig-tin-yevrnzb and prescription medicines only as told by [...] provider. Document Revised: 05/17/2020 Document Reviewed: 08/07/2019 [employer] Patient Education ? 2022 [employer]. Pulmonary Medicine Shortness of Breath, Adult Shortness [...] any changes in your symptoms. ? Take azok-oiz-hzwafhd and prescription medicines only as told by [...] ? D (more content not included)... Normal [facility] ED Patient Summaryon 023 ED Patient Summary [address] [address] Patient Discharge Instructions Person Information Name: MAURY COLLAZO Age: 22 Years Arrival Date: 11/10/2022 15:56:06 Discharge Diagnosis: 1:Abdominal pain; 2:Shortness of breath Primary Care Physician: Bella Camara MD Provider Information Primary Provider: Michael Hannah M.D. Advanced Spectroscopist:None The exam and treatment you received in the Emergency Department were for an urgent problem and are not intended as complete care. It is important that you follow up with a doctor, nurse practitioner, or physician?s administrative assistant office manager for ongoing care. If your symptoms become worse or you do not improve as expected and you are unable to reach your usual health care provider, you should return to the Emergency Department. We are available 24 hours a day. PABLO MAURY Shawn has been given the following list of patient education materials, prescriptions and follow-up instructions: Follow-up Instructions: With: Address: When: Bella [place] [address] Business (1) In 3 days 11/13/2022 [...] opioids can be used to help relieve snqrgdqt-jf-fesaai pain and are often prescribed following a [...] struggling wi (more content not included)... Normal [facility] HEMATOLOGYOrdered By: SYSTEM SYSTEM on 11-10-2022 [...] 13.5 % Normal 10.9 - 14.2 % FT HemeAutoSS Hematocrit (Bld) [Volume fraction] 40.4 % [...] above: Result Comment: Slid e reviewed by Hep Fun Panelon 11-10-2022 Bilirubin.indirect [Mass or moles/Vol] UTC Abnormal 0.1-0.[address] [facility] Comment on above: Result Comment: Resu lt verified by Discern Rule. Performed result UTC (Unable to Calculate) was sent as an Alpha code due the inability to calculate a valid numeric value. Performed By: #### 2 465188, 1247174, 15387147, 1064108, 0526379, 36575945, 3603389, 7901333 ####[facility] [address] [place] [address] Albumin [Mass/Vol] 4.6 g/dL Normal 3.3-5.[address] [facility] Comment on above: Performed By: #### 2 276338, 0291624, 19804760, 4222292, 5803503, 18617528, 9007412, 5208782 ####[address] [place] [address] Albumin/Globulin (S) [Mass conc ratio] 1.5 Normal 1.1-2.[address] [facility] Comment on above: Performed By: #### 2 434563, 2915206, 03264210, 2812180, 3869282, 55954998, 9426784, 5228609 ####[address] [place] [address] ALP [Catalytic activity/Vol] 41 Int._Unit/L Normal 21-[address] [facility] Comment on above: Performed By: #### 2 935119, 2372780, 87817908, 3116905, 9183602, 64429317, 3028596, 5320524 ####[address] [address] ALT No additional P-5'-P [Catalytic activity/Vol] 17 Int._Unit/L Normal 6-[address] [facility] Comment on above: Performed By: #### 2 619808, 9071985, 29626413, 1749010, 2457265, 18019837, 2478632, 8732703 ####[address] [address] AST [Catalytic activity/Vol] 17 Int._Unit/L Normal 5-[address] [facility] Comment on above: Performed By: #### 2 513543, 9547243, 64681882, 9728056, 0995228, 22692173, 2794425, 2978261 ####[address] [address] Bilirubin [Mass/Vol] 0.5 mg/dL Normal 0.0-1.1 [facility] Comment on above: Performed By: #### 2 600391, 0448288, 02472437, 0728302, 6973381, 55912660, 7618821, 1518688 ####[facility] [address] [place] [address] Globulin (S) [Mass/Vol] 3.1 g/dL Normal 1.4-4.0 [facility] Comment on above: Performed By: #### 2 140019, 1669565, 29108254, 1816100, 4328947, 82149568, 0295784, 1515059 ####[facility] [address] [place] [address] Protein [Mass/Vol] 7.7 g/dL Normal 6.0-7.[address] [facility] Comment on above: Performed By: #### 2 638464, 9116727, 41844152, 5318301, 5206371, 04363323, 9407037, 5000892 ####[facility] [address] [place] [address] Bilirubin.direct [Mass/Vol] mg/dL Normal 0.1-0.[address] [facility] Comment on above: Performed By: #### 2 682298, 7233829, 98325691, 2965424, 2439058, 86878350, 9423235, 4655640 ####[facility] [address] [place] [address] Lipase Levelon 11-10-2022 Lipase [Catalytic activity/Vol] 28 U/L Normal 13-[address] [facility] Comment on above: Performed By: #### 2 555292, 0304922, 55556801, 2905973, 3591692, 90547863, 3879733, 8785817 ####[facility] [address] [place] [address] Progress Note-Nurseon 2022 Progress Note-Nurse Patient brought back to ED 11 at this time from the waiting room Normal [facility] SEROLOGYOrdered By: Brittni choudhury on 11-10-2022 HCG.beta subunit (U) [Moles/Vol] Negative Normal [facility] Man Sero Troponin 0 Hr.on 11-10-2022 Troponin I.cardiac [Mass/Vol] ng/mL Low 10.10-27.[address] [facility] Comment on above: Result Comment: The 95% CI (Confidence Interval) PPV (Positive Predictive Value) for myocardial infarction in females is 38 pg/mL, in males 51 pg/mL. The results should be used in conjunction with clinical conditions of myocardial infarction. (Access High Sensitivity Troponin I Instructions For Use, [place]le [place], November 2017) Performed By: #### 2 107835, 4776992, 63775112, 5387677, 6370078, 36791181, 9299455, 7397586 ####[facility] [address] [place] [address] U BetaHcg Qualon 11-10-2022 HCG.beta subunit (U) [Moles/Vol] Negative Normal [facility] Comment on above: Performed By: #### 2 0448427 ####[facility] [address] [place] [address] UA With Cult Reflexon 2022 Bilirubin Ql (U) Negative Normal Negative [facility] Comment on above: Performed By: #### 1 [id number] ####[address] [address] Clarity (U) CLEAR Normal Clear [facility] Comment on above: Performed By: #### 1 2144591 ####[address] [address] Color (U) YELLOW Normal Yellow [facility] Comment on above: Performed By: #### 1 3765419 ####[address] [address] Epithelial cells.squamous LM.HPF (Urine sed) [#/Area] 0-2 Normal 0-2 [facility] Comment on above: Performed By: #### 1 1916665 ####[address] [address] Glucose Test strip (U) [Mass/Vol] Negative Normal Negative [facility] Comment on above: Performed By: #### 1 4771186 ####[address] [place] [address] Hemoglobin Ql (U) Negative Normal Negative [facility] Comment on above: Performed By: #### 1 4792743 ####[address] [address] Ketones (U) [Mass/Vol] Negative Normal Negative [facility] Comment on above: Performed By: #### 1 7048045 ####[address] [address] [place].plasma/[place]. RBC (Bld) [Mass ratio] 0-3 Normal 0-3 [facility] Comment on above: Performed By: #### 1 3769909 ####[address] [address] Nitrite Ql (U) Negative Normal Negative [facility] Comment on above: Performed By: #### 1 8462117 ####[address] [address] pH (U) 6.0 [pH] Invalid Interpretation Code 5.0-9.[address] [facility] Comment on above: Performed By: #### 1 6986755 ####[address] [address] Protein (U) [Mass/Vol] Negative Normal Negative [facility] Comment on above: Performed By: #### 1 0163971 ####[address] [address] Specific gravity (U) [Rel density] 1.010 Invalid Interpretation Code 1.005-1.[address] [facility] Comment on above: Performed By: #### 1 7203390 ####[address] [address] Type of Urine collection method Clean Catch Normal [facility] Comment on above: Performed By: #### 1 9625287 ####[address] [address] Urobilinogen Qn (U) 0.2 {Elizabeth'U}/dL Normal 0.0-1.[address] [facility] Comment on above: Performed By: #### 1 8698103 ####[facility] [address] [place] [address] WBC Auto Ql (U) Negative Normal Negative [facility] Comment on above: Performed By: #### 1 5887626 ####[facility] [address] [place] [address] WBC LM.HPF (Urine sed) [#/Area] 0-5 Normal 0-[address] [facility] Comment on above: Performed By: #### 1 4255729 ####[facility] [address] [place] [address] URINALYSISOrdered By: Brittni Wren on 11-10-2022 Bilirubin [...] PM) Normal Negative [facility] UA Auto SS [place].plasma/[place]. RBC (Bld) [Mass ratio] 0-3 /HPF Normal [...] PM) Invalid Interpretation Code 1.005 - 1.030 [facility] UA Auto SS UA Spec Desc Clean Catch (11/10/22 5:44 PM) Normal [facility] UA Auto SS Urobilinogen Qn (U) 0.4373879 {Elizabeth'U}/dL Normal 0.0 - 1.0 EU/dL [facility] UA Auto SS WBC Auto Ql (U) Negative (11/10/22 5:44 PM) Normal Negative [facility] UA Auto SS WBC LM.HPF (Urine sed) [#/Area] 0-5 /HPF Normal 0-5/HPF [facility] UA Auto SS eGFRon 11-10-2022 GFR/1.73 sq M.predicted among non-blacks MDRD (S/P/Bld) [Vol rate/Area] 105 mL/min/1.73 m2 Normal >=[address] [facility] Comment on above: Order Comment: Order added by Discern Expert. Result Comment: Business And Services Instructor crystal kidney disease could be indicated at eGFR's of less than 60 mL/min/1.73m2. Kidney failure is indicated at less than 15 mL/min/1.73m2. Performed By: #### 2 020187, 2178988, 95685021, 2503736, 3766586, 76516909, 1210809, 0941133 ####[facility] [address] [place] [address] Basophils Auto (Bld) [#/Vol] Ordered By: Phillip Shaw on 04-12-2022 Basophils (Bld) [#/Vol] 0.0 10*3/uL 0.0-0.2 [facility] Basophils/100 WBC Auto (Bld) Ordered By: Phillip Shaw on 04-12-2022 Basophils/100 WBC (Bld) 0.4 % . [facility] Creatinine and Glomerular fi ltration rate.predicted panel (S/P/Bld)Ordered By: Phillip Shaw on 04-12-2022 Creatinine [Mass/Vol] 0.72 mg/dL 0.44-1.03 [facility] Eosinophils Auto (Bld) [#/Vo l]Ordered By: Phillip Shaw on 04-12-2022 Eosinophils (Bld) [#/Vol] 0.0 10*3/uL 0.0-0.45 [facility] Eosinophils/100 WBC Auto (Bl d)Ordered By: Phillip Shaw on 04-12-2022 Eosinophils/100 WBC (Bld) 0.1 % . [facility] Erythrocyte distribution wid th Auto (RBC) [Ratio]Ordered By: Phillip Shaw on 04-12-2022 Erythrocyte distribution width (RBC) [Ratio] 15.1 % 11.9-15.3 [facility] Estimated glomerular filtrat ion rate (GFR) non- AmericanOrdered By: Phillip Shaw on 04-12-2022 GFR/1.73 sq M.predicted among non-blacks MDRD (S/P/Bld) [Vol rate/Area] > 60 mL/Min [facility] Hematocrit Auto (Bld) [Volum e fraction]Ordered By: Phillip Shaw on 04-12-2022 Hematocrit (Bld) [Volume fraction] 37.6 % 34.0-46.4 [facility] Hemoglobin [Mass/volume] in BloodOrdered By: Phillip Shaw on 04-12-2022 Hemoglobin (Bld) [Mass/Vol] 12.4 g/dL 11.8-15.4 [facility] Laboratory - Chemistry and C hemistry - challengeOrdered By: Phillip Shaw on 04-12-2022 Natriuretic peptide B (Bld) [Mass/Vol] 34.0 pg/mL 5-100 [facility] Leukocytes [#/volume] correc charli for nucleated erythrocytes in Blood by Automated counOrdered By: Phillip Shaw on 04-12-2022 WBC corrected for nucl RBC Auto (Bld) [#/Vol] 11.1 10*3/uL 3.8-11.6 [facility] Lymphocytes Auto (Bld) [#/Vo l]Ordered By: Phillip Shaw on 04-12-2022 Lymphocytes (Bld) [#/Vol] 1.0 10*3/uL 1.00-4.8 [facility] Lymphocytes/100 WBC Auto (Bl d)Ordered By: Phillip Shaw on 04-12-2022 Lymphocytes/100 WBC (Bld) 9.1 % . [facility] MCH Auto (RBC) [Entitic mass ]Ordered By: Phillip Shaw on 04-12-2022 MCH (RBC) [Entitic mass] 28.8 pg 24.7-34.3 [facility] MCHC Auto (RBC) [Mass/Vol]Or dered By: Phillip Shaw on 04-12-2022 MCHC (RBC) [Mass/Vol] 32.9 g/dL 32.0-35.0 [facility] MCV Auto (RBC) [Entitic vol] Ordered By: Phillip Shaw on 04-12-2022 MCV (RBC) [Entitic vol] 87.5 fL 80-100 [facility] Monocyte distribution width [Entitic volume] in Blood by AutomatedOrdered By: Phillip Shaw on 04-12-2022 Monocyte distribution width Auto (Bld) [Entitic vol] 22.31 % 0.00-20.00 [facility] Comment on above: For adults in ED, MD W > 20.0 may be associated with a higher risk of sepsis during the first 12 hrs of hospital admission Monocytes Auto (Bld) [#/Vol] Ordered By: Phillip Shaw on 04-12-2022 Monocytes (Bld) [#/Vol] 1.1 10*3/uL 0.0-0.8 [facility] Monocytes/100 WBC Auto (Bld) Ordered By: Phillip Shaw on 04-12-2022 Monocytes/100 WBC (Bld) 10.3 % . [facility] Neutrophils Auto (Bld) [#/Vo l]Ordered By: Phillip Shaw on 04-12-2022 Neutrophils (Bld) [#/Vol] 8.9 10*3/uL 1.8-7.7 [facility] Neutrophils/100 WBC Auto (Bl d)Ordered By: Phillip Shaw on 04-12-2022 Neutrophils/100 WBC (Bld) 80.1 % . [facility] No Panel InformationOrdered By: Phillip Shaw on 04-12-2022 D-Dimer Quantitative (PE/DVT) < 200 ng/mL 0-243 [facility] Comment on above: The reference [...] conditions. Estimated GFR () > 60 mL/Min [facility] Comment on above: GFR estimated refere nce range: According to KDOQI guidelines, <60 ml/min/1.73m2 is sufficient to diagnose a patient with chronic kidney disease. Pharmacy Creatinine Clearance (Chem 117.02 [facility] Nucleated erythrocytes [Pres ence] in Blood by Automated countOrdered By: Phillip Shaw on 04-12-2022 Nucleated RBC Auto Ql (Bld) 0.1 /100{WBC} 0-0.5 [facility] Platelet mean volume Auto (B ld) [Entitic vol]Ordered By: Phillip Shaw on 04-12-2022 Platelet mean volume (Bld) [Entitic vol] 11.4 fL 6.3-10.7 [facility] Platelets Auto (Bld) [#/Vol] Ordered By: Phillip Shaw on 04-12-2022 Platelets (Bld) [#/Vol] 181 10*3/uL 150-450 [facility] RBC Auto (Bld) [#/Vol]Ordere d By: Phillip Shaw on 04-12-2022 RBC (Bld) [#/Vol] 4.30 10*6/uL 3.60-5.00 [facility] Serum or plasma anion gap de terminationOrdered By: Phillip Shaw on 04-12-2022 Anion gap [Moles/Vol] 13.1 mmol/L 6.0-15.0 [facility] Serum or plasma calcium oliver urement (mass/volume)Ordered By: Phillip Shaw on 04-12-2022 Calcium [Mass/Vol] 8.9 mg/dL 8.2-10.2 [facility] Serum or plasma chloride jeanne surement (moles/volume)Ordered By: Phillip Shaw on 04-12-2022 Chloride [Moles/Vol] 101 mmol/L 95-114 [facility] Serum or plasma glucose oliver urement (mass/volume)Ordered By: Phillip Shaw on 04-12-2022 Glucose [Mass/Vol] 108 mg/dL 70-100 [facility] Comment on above: ADA recommended refe rence rangeRandom Glucose Reference Range is dependent on time and content of last meal. Glucose of more than 200 mg/dL in a nonstressed, ambulatory subject supports the diagnosis of Diabetes Mellitus. Serum or plasma potassium me asurement (moles/volume)Ordered By: Phillip Shaw on 04-12-2022 Potassium [Moles/Vol] 3.8 mmol/L 3.5-5.1 [facility] Serum or plasma sodium measu rement (moles/volume)Ordered By: Phillip Shaw on 04-12-2022 Sodium [Moles/Vol] 133 mmol/L 136-146 [facility] Serum or plasma total carbon dioxide measurement (moles/volume)Ordered By: Phillip Shaw on 04-12-2022 CO2 [Moles/Vol] 22.7 mmol/L 22.0-30.0 [facility] Serum or plasma urea nitroge n measurement (mass/volume)Ordered By: Phillip Shaw on 04-12-2022 Urea nitrogen [Mass/Vol] 7 mg/dL 9-23 [facility] Troponin I.cardiac [Mass/vol ume] in Serum or Plasma by High sensitivity methodOrdered By: Phillip Shaw on 04-12-2022 Troponin I.cardiac High sensitivity method [Mass/Vol] 5 pg/mL 0-15 [facility] WBC Auto (Bld) [#/Vol]Ordere d By: Phillip Shaw on 04-12-2022 WBC (Bld) [#/Vol] 11.1 10*3/uL 3.8-11.6 [facility] COVID CepheidOrdered By: Twyla Rea on 04-07-2022 SARS-CoV-2 (COVID-19) Ab IA Ql Negative Negative [facility] Comment on above: This is a duplicate UUSEE Xpert Xpress CoV-2/Flu/RSV Plus RNA by RT-PCR result to be used for statistical tracking purpose only. SARS-CoV-2 (COVID-19) RNA BARBI+probe Ql (Unsp spec) [facility] XR Spine Lumbar 4+ Views*on [...] by JOVITA MA on 08/21/2021 1223 Normal [facility] Entrepreneur ALLIED HEALTHon 10-04-2020 ALLIED HEALTH HNO ID: [id number] Author: RT Kristin(R) Service: Radiology Author Type: Motorcycle Builder Type: Allied Health Filed: 10/04/2020 10:48 AM [...] RT Kristin(R) October 04, 2020 10:26 AM [facility] ALLIED HEALTH HNO ID: [id number] Author: JAYCE Foster) Service: Radiology Author Type: Motorcycle Builder Type: Allied Health Filed: 10/04/2020 9:27 AM Note Text: Waiting for HCG results to come back before performing exam Bing Fernandez) [facility] ED NOTEon 10-04-2020 ED NOTE HNO ID: [id number] Author: Samara Orozco RN Service: ? Author [...] ambulated with steady gait out of ED. [facility] ED NOTE HNO ID: [id number] Author: Samara Orozco RN Service: ? Author Type: Registered Nurse Type: ED Notes Filed: 10/04/2020 11:38 AM Note Text: Pt resting comfortably in bed. Comfort measures offered. Call light within reach. No distress noted at this time. Safety maintained and will continue to monitor patient. [facility] ED NOTE HNO ID: [id number] Author: Samara Orozco RN Service: ? Author Type: Registered Nurse Type: ED Notes Filed: 10/04/2020 11:38 AM Note Text: Pt resting comfortably in bed. Comfort measures offered. Call light within reach. No distress noted at this time. Safety maintained and will continue to monitor patient. [facility] ED NOTE HNO ID: [id number] Author: Akin Mcclain RN Service: ? Author Type: Registered Nurse Type: ED Notes Filed: 10/04/2020 9:21 AM Note Text: PO fluids provided [facility] ED NOTE HNO ID: [id number] Author: Akin Mcclain RN Service: ? Author [...] head or LOC. +MSP; gate is steady. [facility] ED PROV NOTEon 10-04-2020 ED PROV NOTE HNO ID: [id number] Author: Al Castellanos MD Service: Emergency Medicine [...] IV drug use. History provided by: Patient official court interpreter used: No History reviewed. No pertinent past [...] at 10/05/19 (more content not included)... Normal [facility] HCG Qual, Urineon 10-04-2020 Beta HCG ( test) Ql (U) Negative Normal Negative [facility] Comment on above: Performed By: #### U HCG #### [facility] [address] [address] XR FEMUR 2V AP/LAT RTon 09-11 XR [...] No acute bone or joint space abnormality. Associate Media Planner: ROSA Transcribe Date/Time: Oct 04 2020 10:50A Dictated by : Anca MACKENZIE MD This examination was interpreted and the report reviewed and electronically signed by: Anca MACKENZIE MD on Oct 04 2020 10:55AM EST [id number] [facility] XR LUMBAR 3V AP/LAT/L5-S1on 10-04-2020 XR LUMBAR [...] vertebrae. Anatomic Variant: Transitional L5 vertebral body. Associate Media Planner: [facility] Transcribe Date/Time: Oct 04 2020 10:56A Dictated by : Anca MACKENZIE MD This examination was interpreted and the report reviewed and electronically signed by: Anca MACKENZIE MD on Oct 04 2020 10:58AM EST [id number] [facility] XR PELVIS 1V APon 10-04-2020 XR PELVIS [...] No acute bone or joint space abnormality. Associate Media Planner: PSCB Transcribe Date/Time: Oct 04 2020 10:50A Dictated by : Anca MACKENZIE MD This examination was interpreted and the report reviewed and electronically signed by: Anca MACKENZIE MD on Oct 04 2020 10:55AM EST [id number] [facility] CHEST 1 VIEWon 10-01-2020 CHEST 1 VIEW Patient Name: MAURY COLLAZO STUDY: CHEST 1 VIEW; 10/01/2020 7:54 am INDICATION: cough. COMPARISON: None. ACCESSION NUMBER(S): [id number] ORDERING CLINICIAN: ERON JONES TECHNIQUE: A portable [...] Electronically signed by: LARS DAMICO MD Normal [facility] CORONAVIRUS 2019 BY PCRon SARS-CoV-2 (COVID-19) RNA BARBI+probe Ql (Unsp spec) Not detected Normal Not Detected [facility] Comment on above: Result Comment: . This assay is designed to detect the RdRp gene of SARS-CoV-2 via nucleic acid amplification. A Not Detected result does not preclude COVID-19 infection since the adequacy of sample collection and/or low viral burden may result in presence of viral nucleic acids below the clinical sensitivity of this test method. Fact sheet for providers: www.fda.gov/media/332538/download Fact sheet for patients: www.fda.gov/media/837466/download This test has received FDA Emergency Use Authorization (EUA) and has been verified by [facility] ([facility]). This test is only authorized for the duration of time that circumstances exist to justify the authorization of the emergency use of in vitro diagnostic tests for the detection of SARS-CoV-2 virus and/or diagnosis of COVID-19 infection under section 564(b)(1) of the Act, 21 U.S.C. 360bbb-3(b)(1), unless the authorization is terminated or revoked sooner. [facility] is certified under CLIA-88 as qualified to perform high complexity testing. Testing is performed in the [facility] laboratory located at [address] [place] [address]. Performed By: #### C OV19 #### [address] [id number] DATE OF SYMPTOM ONSET [YYYYMMDD]? [id number] Normal [facility] Comment on above: Performed By: #### C OV19 #### [address] [id number] Lab Specimen Source Nasal, Nasopharyngeal Normal [facility] Comment on above: Performed By: #### C OV19 #### [address] [id number] Covid 19 Resultson 1 SARS-CoV-2 (COVID-19) RNA [...] You may also be contacted by the [facility] to see if any of [...] or Naproxen (Aleve) can also be used. Vizj-ixg-usoieja cough and cold medicines can be used according to the instructions on the package. Some papv-rzd-apvsvip medicines also contain acetaminophen. Make sure you [...] water are not available, use alcohol-based hand precision mechanical instrument maker. Avoid touching your eyes, nose, and mouth [...] 24 reginald (more content not included)... Normal [facility] Provider Note - ED v2on 09-11 Provider [...] Status: Patient Currently Takes Medications Drug Name: Kyajohnathanmelecio Instructions: null Drug Name: benzonatate 100 mg oral capsule Instructions: 1 cap(s) orally every 8 hours, As Needed SIGNIFICANT EVENTS: No documented data. ASSOCIATE MEDIA PLANNER: Is : no(1) Is : no(1) REVIEW [...] SIGNS: T PRBP SpO2O2(LPM) %FiO2 Method 01-Oct-2020 07:27:[id number]/70 98 room air, no respiratory support PHYSICAL [...] not at (more content not included)... Normal [facility] Risk Screen - Adult Emergenc yon 10-01-2020 [...] demonstration; verbal instruction Cultural Considerationsnone Developmental Considerationsnone Restorationism Considerationsnone Learning Assessment (Other Learner): Learning Assessment [...] an injured patient at a Trauma Center ([facility]/[place]/[facility]/[place]): no Electronic Signatures: Hailey Shepard (STAFF N) (Signed 01-Oct-2020 07:27) Authored: Preferred Language, Advanced Directives, Family Violence Adult, Learning Assessment (Patient), Learning Assessment (Other Learner), Pressure Injury/TB/Substance, Pressure Injury, CAGE Last Updated: 01-Oct-2020 07:27 by Hailey Shepard (STAFF N) Normal [facility] Triage - EDon 10-01-2020 Triage - ED [...] Accompanied By: self Language: Spoken Language Preferred: Puerto Rican Reading Language Preferred: [place]ican Advertising Solicitor Requested: no official court interpreter was requested MDRO: History of MDRO: no Present on Arrival: Device Present on Arrival to ED: no Pressure Ulcer Present on Arrival to ED: no CHIEF COMPLAINT MAURY COLLAZO is a Female patient with a chief complaint of cough. Triage Date/Time: 01-Oct-2020 07:28 INOA: 4 Pain Rating (0-10): 5 = Moderate [...] patient cognitively impaired not cognitively impaired Interventions: Linh Fall Interventions: LOW INTERVENTIONS: *patient oriented to [...] 07:32 by Hailey Shepard (STAFF N) Normal [facility] CBC AUTO DIFFon 09-10-2018 Basophils #/vol (Bld) 0.0 103/ul Normal 0.0-0.1 [facility] Comment on above: Performed By: #### C BC #### [facility] [address] [place] [address] Dianne Mame Basophils/100 WBC (Bld) 0.4 % Normal 0.2-2.0 [facility] Comment on above: Performed By: #### C BC #### [facility] [address] [place] [address] Dianne Mame Eosinophils #/vol (Bld) 0.0 103/ul Normal 0.0-0.7 [facility] Comment on above: Performed By: #### C BC #### [facility] [address] [place] [address] Dianne Vilchis Eosinophils/100 WBC (Bld) 0.4 % Critically low 0.9-7.0 [facility] Comment on above: Performed By: #### C BC #### [facility] [address] [place] [place] [address] Dianne Vilchis Erythrocyte distribution width Ratio (RBC) 12.9 % Normal 11.0-15.0 [facility] Comment on above: Performed By: #### C BC #### [facility] [address] [place] [address] Dianne Timmonsen Hematocrit Volume Fraction (Bld) 38.9 % Normal 36.0-48.0 [facility] Comment on above: Performed By: #### C BC #### [facility] [address] [place], [place] [id number] Dianne Vilchis Hemoglobin mass conc (Bld) 13.4 g/dL Normal 12.0-16.0 [facility] Comment on above: Performed By: #### C BC #### [facility] [address] [place] [address] Dianne Vilchis IG # 0.03 10e3/ul Normal 0.00-0.03 [facility] Comment on above: Performed By: #### C BC #### [facility] [address] [place] [address] Dianneisidro Vilchis IG % 0.3 % Normal 0.0-0.5 [facility] Comment on above: Performed By: #### C BC #### [facility] [address] [place] [address] Dianne Vilchis Lymphocytes #/vol (Bld) 2.1 103/ul Normal 1.2-3.8 [facility] Comment on above: Performed By: #### C BC #### [facility] [address] [place] [address] Dianne Vilchis Lymphocytes/100 WBC (Bld) 20.3 % Critically low 20.5-60.0 [facility] Comment on above: Performed By: #### C BC #### [facility] [address] [place] [address] Dianne Vilchis MANUAL DIFF REQ NO Normal [facility] Comment on above: Performed By: #### C BC #### [facility] [address] [place] [address] Dianne Vilchis MCH Entitic mass (RBC) 30.4 pg Normal 26.7-34.0 [facility] Comment on above: Performed By: #### C BC #### [facility] [address] [place] [address] Dianne Vilchis MCHC mass conc (RBC) 34.4 g/dL Normal 29.9-35.2 [facility] Comment on above: Performed By: #### C BC #### [facility] [address] [place] [address] Dianne Vilchis MCV Entitic volume (RBC) 88.2 fL Normal 81.0-99.0 [facility] Comment on above: Performed By: #### C BC #### [facility] [address] [place], [place] [address] Dianne Mame Monocytes #/vol (Bld) 0.6 103/ul Normal 0.3-0.8 [facility] Comment on above: Performed By: #### C BC #### [facility] [address] [place], [place] [address] Dianne Mame Monocytes/100 WBC (Bld) 5.7 % Normal 1.7-12.0 [facility] Comment on above: Performed By: #### C BC #### [facility] [address] [place] [id number] Dianne Mame Neutrophils #/vol (Bld) 7.4 103/ul Critically high 1.4-6.5 [facility] Comment on above: Performed By: #### C BC #### [facility] [address] [place] [id number] Dianne Mame Neutrophils/100 WBC (Bld) 72.9 % Normal 43.0-75.0 [facility] Comment on above: Performed By: #### C BC #### [facility] [address] [place], [place] [address] Dianne Mame Platelet mean volume Entitic volume (Bld) 12.5 fL Normal 9.5-13.5 [facility] Comment on above: Performed By: #### C BC #### [facility] [address] [place] [id number] Dianne Mame Platelets #/vol (Bld) 192 103/ul Normal 150-[address] [facility] Comment on above: Performed By: #### C BC #### [facility] [address] [place] [id number] Dianne Mame RBC #/vol (Bld) 4.41 106/ul Normal 4.20-5.40 [facility] Comment on above: Performed By: #### C BC #### [facility] [address] [place] [id number] Dianne Mame WBC #/vol (Bld) 10.1 103/ul Normal 4.0-11.0 [facility] Comment on above: Performed By: #### C BC #### [facility] [address] [place] [id number] Dianne Mame ER URINE PROFILEon 9 Bilirubin mass conc SMALL Normal NEGATIVE [facility] Comment on above: Performed By: #### E RUR #### [facility] [address] [place], [place] [id number] Dianne Mame BLOOD Negative Normal NEGATIVE [facility] Comment on above: Performed By: #### E RUR #### [facility] [address] [place] [address] Dianne Mame Clarity Nom (U) CLEAR Normal [facility] Comment on above: Performed By: #### E RUR #### [facility] [address] [place] [address] Dianne Mame Color Nom (U) YELLOW Normal YELLOW [facility] Comment on above: Performed By: #### E RUR #### [facility] [address] [place] [address] Dianne Mame ERUAHD A micrscopic examination will be performed if indicated. Normal [facility] Comment on above: Performed By: #### E RUR #### [facility] [address] [place] [address] Dianne Mame Glucose mass conc Negative Normal NEGATIVE [facility] Comment on above: Performed By: #### E RUR #### [facility] [address] [place] [address] Dianne Mame Ketones Ql (U) >=80 Normal NEGATIVE [facility] Comment on above: Performed By: #### E RUR #### [facility] [address] [place] [address] Dianne Mame Nitrite Ql (U) Negative Normal NEGATIVE [facility] Comment on above: Performed By: #### E RUR #### [facility] [address] [place], [place] [id number] Dianne Mame pH (Bld) 6.0 Normal 5-[address] [facility] Comment on above: Performed By: #### E RUR #### [facility] [address] [place] [address] Dianne Vilchis Protein mass conc (U) TRACE Normal [facility] Comment on above: Performed By: #### E RUR #### [facility] [address] [place], [place] [phone] Dainne Vilchis SPEC GRAVITY 1.025 Normal 1.005-<=1.02 5 [facility] Comment on above: Performed By: #### E RUR #### [facility] [address] [place] [address] Dianne Vilchis UR MICRO IND NOT INDICATED Normal [facility] Comment on above: Performed By: #### E RUR #### [facility] [address] [place] [address] Dianne Vilchis Urobilinogen Qn (U) 0.2 EU/dl Normal [facility] Comment on above: Performed By: #### E RUR #### [facility] [address] [place] [address] Dianne Vilchis WBC #/vol (Bld) Negative Normal NEGATIVE [facility] Comment on above: Performed By: #### E RUR #### [facility] [address] [place], [place] [id number] Dianne Vilchis PROF 14(COMP METB)on 019 Albumin mass conc 3.8 g/dL Normal 3.5-5.0 [facility] Comment on above: Performed By: #### C MP #### [facility] [address] [place] [address] Dianne Vilchis Albumin/Globulin mass ratio 1.0 {ratio} Normal [facility] Comment on above: Performed By: #### C MP #### [facility] [address] [place], [place] [phone] Dianne Vilchis ALP enzyme act/vol 53 U/L Normal 38-126 [facility] Comment on above: Performed By: #### C MP #### [facility] [address] [place] [address] Dianne Vilchis ALT enzyme act/vol 25 U/L Normal 9-52 [facility] Comment on above: Performed By: #### C MP #### [facility] [address] [place] [address] Dianne Mame Anion gap molar conc 13.4 mmol/L Normal [facility] Comment on above: Performed By: #### C MP #### [facility] [address] [place] [id number] Dianne Mame AST enzyme act/vol 17 U/L Normal 14-36 [facility] Comment on above: Performed By: #### C MP #### [facility] [address] [place] [id number] Dianne Mame Bilirubin Ql (U) 0.5 mg/dL Normal 0.2-1.3 [facility] Comment on above: Performed By: #### C MP #### [facility] [address] [place] [address] Dianne Mame Calcium mass conc 9.6 mg/dL Normal 8.4-10.2 [facility] [place] Comment on above: Performed By: #### C MP #### [facility] [address] [place] [id number] Dianne Mame Chloride molar conc 101 mmol/L Normal 98-107 [facility] Comment on above: Performed By: #### C MP #### [facility] [address] [place] [address] Dianne Mame CO2 molar conc 24.1 mmol/L Normal 22.0-30.0 [facility] Comment on above: Performed By: #### C MP #### [facility] [address] [place] [address] Dianne Mame Creatinine mass conc 0.64 mg/dL Normal 0.52-1.[address] [facility] Comment on above: Performed By: #### C MP #### [facility] [address] [place] [id number] Dianne Mame EGFR-AF DJIBOUTIAN >60 Normal >=60 [facility] Comment on above: Performed By: #### C MP #### [facility] [address] [place] [id number] Dianne Mame EGFR-NON AF DJIBOUTIAN >60 Normal >=[address] [facility] Comment on above: Performed By: #### C MP #### [facility] [address] [place] [id number] Dianne Mame Globulin mass conc (S) 3.9 g/dL Normal [facility] Comment on above: Performed By: #### C MP #### [facility] [address] [place] [address] Dianne Mame Glucose mass conc 76 mg/dL Normal 74-106 [facility] Comment on above: Performed By: #### C MP #### [facility] [address] [place] [address] Dianne Mame Potassium molar conc 3.5 mmol/L Normal 3.4-5.0 [facility] Comment on above: Performed By: #### C MP #### [facility] [address] [place] [address] Dianne Mame Protein mass conc 7.7 g/dL Normal 6.1-8.2 [facility] Comment on above: Performed By: #### C MP #### [facility] [address] [place] [address] Dianne Mame Sodium molar conc 135 mmol/L Critically low 137-145 [facility] Comment on above: Performed By: #### C MP #### [facility] [address] [place] [address] Dianne Timmonsen Urea nitrogen mass conc 9.0 mg/dL Normal 6.4-19.3 [facility] Comment on above: Performed By: #### C MP #### [facility] [address] [place] [address] Dianne Mame Urea nitrogen/Creatinine mass ratio 14.1 mg/mg Normal [facility] Comment on above: Performed By: #### C MP #### [facility] [address] [place], [place] [address] Dianne Vilchis Vital Signs Date Time Vital Sign Value Performing Clinician Faci lity 08-19-2024 12:48-0400 Body temperature 97.11 [degF] Mame TOPETE Work Phone: [facility] 08-19-2024 12:48-0400 Diastolic blood pressure 68 mm[Hg] Mame Hemmer PA Work Phone: [facility] 08-19-2024 12:48-0400 Heart rate 98 /min Mame Hemmer PA Work Phone: [facility] 08-19-2024 12:48-0400 SaO2% (BldA) [Mass fraction] 99 % Mame Hemmer PA Work Phone: [facility] 08-19-2024 12:48-0400 Systolic blood pressure 116 mm[Hg] Mame Jamisonmer PA Work Phone: [facility] 08-10-2024 09:20-0400 Body height 175.3 cm Miracle Padilla MD Work Phone: [facility] 08-10-2024 09:20-0400 Body mass index (BMI) [Ratio] 22 kg/m2 Miracle Padilla MD Work Phone: [facility] 08-10-2024 09:20-0400 Body temperature 98.2 [degF] Miracle Padilla MD Work Phone: [facility] 08-10-2024 09:20-0400 Body weight 67.59 kg Miracle Padilla MD Work Phone: [facility] 08-10-2024 09:20-0400 Diastolic blood pressure 70 mm[Hg] Miracle Padilla MD Work Phone: [facility] 08-10-2024 09:20-0400 Heart rate 68 /min Miracle Padilla MD Work Phone: [facility] 08-10-2024 09:20-0400 SaO2% (BldA) [Mass fraction] 99 % Miracle Padilla MD Work Phone: [facility] 08-10-2024 09:20-0400 Systolic blood pressure 120 mm[Hg] Miracle Padilla MD Work Phone: [facility] 01-06-2024 19:53-0400 Body height 157.48 cm MD Miracle Padilla Work Phone: [facility] 01-06-2024 19:53-0400 Body temperature 98 [degF] MD Miracle Padilla Work Phone: [facility] 01-06-2024 19:53-0400 Body weight 69.1 kg MD Miracle Padilla Work Phone: [facility] 01-06-2024 19:53-0400 Diastolic blood pressure 71 mm[Hg] MD Miracle Padilla Work Phone: [facility] 01-06-2024 19:53-0400 Heart rate 90 /min MD Miracle Padilla Work Phone: [facility] 01-06-2024 19:53-0400 Respiratory rate 16 /min MD Miracle Padilla Work Phone: [facility] 01-06-2024 19:53-0400 SaO2% (BldA) [Mass fraction] 98 % MD Miracle Padilla Work Phone: [facility] 01-06-2024 19:53-0400 Systolic blood pressure 125 mm[Hg] MD Miracle Padilla Work Phone: [facility] 05-27-2023 11:20-0500 Body temperature 97.52 [degF] [facility] 05-27-2023 11:20-0500 Diastolic blood pressure 84 mm[Hg] [facility] 05-27-2023 11:20-0500 Heart rate 61 /min [facility] 05-27-2023 11:20-0500 Respiratory rate 20 /min [facility] 05-27-2023 11:20-0500 SaO2% (BldA) [Mass fraction] 99 % [facility] 05-27-2023 11:20-0500 Systolic blood pressure 124 mm[Hg] [facility] 05-26-2023 16:14-0500 Body mass index (BMI) [Ratio] 21.86 kg/m2 Bella Camara MD Work Phone: [facility] 05-26-2023 16:14-0500 Body temperature 98.6 [degF] Bella Camara MD Work Phone: [facility] 05-26-2023 16:14-0500 Body weight 67.13 kg Bella Camara MD Work Phone: [facility] 05-26-2023 16:14-0500 Diastolic blood pressure 78 mm[Hg] Bella Camara MD Work Phone: [facility] 05-26-2023 16:14-0500 Heart rate 71 /min Bella Camara MD Work Phone: [facility] 05-26-2023 16:14-0500 SaO2% (BldA) [Mass fraction] 100 % Bella Camara MD Work Phone: [facility] 05-26-2023 16:14-0500 Systolic blood pressure 118 mm[Hg] Bella Camara MD Work Phone: [facility] 05-24-2023 15:36-0500 Body height 175.3 cm Elisabet Giron [employer] [facility] 05-24-2023 15:36-0500 Body mass index (BMI) [Ratio] 21.86 kg/m2 Elisabet Giron [employer] [facility] 05-24-2023 15:36-0500 Body temperature 98.4 [degF] Elisabet Giron [employer] [facility] 05-24-2023 15:36-0500 Body weight 67.13 kg Elisabet Giron [employer] [facility] 05-24-2023 15:36-0500 Diastolic blood pressure 72 mm[Hg] Elisabet Giron [employer] [facility] 05-24-2023 15:36-0500 Heart rate 109 /min Elisabet Giron [employer] [facility] 05-24-2023 15:36-0500 SaO2% (BldA) [Mass fraction] 99 % Elisabet Giron [employer] [facility] 05-24-2023 15:36-0500 Systolic blood pressure 112 mm[Hg] Elisabet Giron [employer] [facility] 05-19-2023 14:22-0500 Body height 175.3 cm [facility] PA Work Phone: [facility] 05-19-2023 14:22-0500 Body mass index (BMI) [Ratio] 21.71 kg/m2 [facility] [place] [facility] PA Work Phone: [facility] 05-19-2023 14:22-0500 Body temperature 97.59 [degF] [facility] [place] [facility] PA Work Phone: [facility] 05-19-2023 14:22-0500 Body weight 66.68 kg [facility] [place] [facility] PA Work Phone: [facility] 05-17-2023 15:37-0500 Body height 175.3 cm Miracle Padilla MD Work Phone: [facility] 05-17-2023 15:37-0500 Body mass index (BMI) [Ratio] 21.56 kg/m2 Miracle Padilla MD Work Phone: [facility] 05-17-2023 15:37-0500 Body weight 66.22 kg Miracle Padilla MD Work Phone: [facility] 05-17-2023 15:37-0500 Diastolic blood pressure 70 mm[Hg] Miracle Padilla MD Work Phone: [facility] 05-17-2023 15:37-0500 Heart rate 71 /min Miracle Padilla MD Work Phone: [facility] 05-17-2023 15:37-0500 SaO2% (BldA) [Mass fraction] 98 % Miracle Padilla MD Work Phone: [facility] 05-17-2023 15:37-0500 Systolic blood pressure 112 mm[Hg] Miracle Padilla MD Work Phone: [facility] 05-12-2023 11:26-0500 Body height 175.3 cm Miracle Padilla MD Work Phone: [facility] 05-12-2023 11:26-0500 Body mass index (BMI) [Ratio] 21.71 kg/m2 Miracle Padilla MD Work Phone: [facility] 05-12-2023 11:26-0500 Body temperature 98.01 [degF] Miracle Padilla MD Work Phone: [facility] 05-12-2023 11:26-0500 Body weight 66.68 kg Miracle Padilla MD Work Phone: [facility] 05-12-2023 11:26-0500 Diastolic blood pressure 68 mm[Hg] Miracle Padilla MD Work Phone: [facility] 05-12-2023 11:26-0500 Heart rate 65 /min Miracle Padilla MD Work Phone: [facility] 05-12-2023 11:26-0500 SaO2% (BldA) [Mass fraction] 99 % Miracle Padilla MD Work Phone: [facility] 05-12-2023 11:26-0500 Systolic blood pressure 106 mm[Hg] Miracle Padilla MD Work Phone: [facility] 11-10-2022 19:03-0400 Diastolic blood pressure 89 mm[Hg] [facility] 11-10-2022 19:03-0400 Heart rate 53 /min [facility] 11-10-2022 19:03-0400 Mean blood pressure 99 mm[Hg] [facility] 11-10-2022 19:03-0400 Respiratory rate 16 /min [facility] 11-10-2022 19:03-0400 SaO2% (BldA) [Mass fraction] 99 % [facility] 11-10-2022 19:03-0400 Systolic blood pressure 120 mm[Hg] [facility] 11-10-2022 18:15-0400 Diastolic blood pressure 83 mm[Hg] [facility] 11-10-2022 18:15-0400 Heart rate 52 /min [facility] 11-10-2022 18:15-0400 Mean blood pressure 96 mm[Hg] [facility] 11-10-2022 18:15-0400 Respiratory rate 16 /min [facility] 11-10-2022 18:15-0400 SaO2% (BldA) [Mass fraction] 100 % [facility] 11-10-2022 18:15-0400 Systolic blood pressure 122 mm[Hg] [facility] 11-10-2022 17:16-0400 Diastolic blood pressure 80 mm[Hg] [facility] 11-10-2022 17:16-0400 Heart rate 57 /min [facility] 11-10-2022 17:16-0400 Mean blood pressure 93 mm[Hg] [facility] 11-10-2022 17:16-0400 Respiratory rate 16 /min [facility] 11-10-2022 17:16-0400 SaO2% (BldA) [Mass fraction] 100 % [facility] 11-10-2022 17:16-0400 Systolic blood pressure 119 mm[Hg] [facility] 11-10-2022 17:10-0400 Hourly Rounding [facility] 11-10-2022 17:10-0400 Promise to Return [facility] 11-10-2022 16:06-0400 Body temperature 97.88 [degF] [facility] 11-10-2022 16:06-0400 Heart rate 66 /min [facility] 11-10-2022 16:06-0400 Respiratory rate 16 /min [facility] 04-13-2022 00:12-0500 Diastolic blood pressure 61 mm[Hg] DO Phillip Tripp Work Phone: 1(877)159-180595 [address] 04-13-2022 00:12-0500 Heart rate 75 /min DO Phillip Petznick Work Phone: 0(420)281-249819 [place] [address] 04-13-2022 00:12-0500 Respiratory rate 18 /min DO Phillip Petznick Work Phone: 8(102)115-312119 [place] [address] 04-13-2022 00:12-0500 SaO2% (BldA) [Mass fraction] 98 % DO Phillip Petznick Work Phone: 8(280)562-068995 [address] 04-13-2022 00:12-0500 Systolic blood pressure 120 mm[Hg] DO Phillip Petznick Work Phone: 6(897)980-250319 [place] [address] 04-12-2022 22:49-0500 Body height 175.26 cm DO Phillip Petznick Work Phone: 6(083)299-293719 [place] [address] 04-12-2022 22:49-0500 Body temperature 101.4 [degF] DO Phillip Petznick Work Phone: 4(164)546-869519 [place] [address] 04-12-2022 22:49-0500 Body weight 61 kg DO Phillip Petznick Work Phone: 2(193)203-814119 [place] [address] 04-07-2022 23:14-0500 Body height 175.26 cm DO Phillip Petznick Work Phone: 8(728)506-518719 [place] [address] 04-07-2022 23:14-0500 Body temperature 98.7 [degF] DO Phillip Petznick Work Phone: 0(797)231-474895 [address] 04-07-2022 23:14-0500 Body weight 69 kg DO Phillip Petznick Work Phone: 5(556)735-995595 [address] 04-07-2022 23:14-0500 Diastolic blood pressure 67 mm[Hg] DO Phillip Petznick Work Phone: 2(891)364-464140 [place] [address] 04-07-2022 23:14-0500 Heart rate 110 /min DO Phillip Petznick Work Phone: 4(464)708-054040 [place] [address] 04-07-2022 23:14-0500 Respiratory rate 16 /min DO Phillip Petznick Work Phone: [facility] 04-07-2022 23:14-0500 SaO2% (BldA) [Mass fraction] 99 % DO Phillip Tripp Work Phone: [facility] 04-07-2022 23:14-0500 Systolic blood pressure 112 mm[Hg] DO Phillip Tripp Work Phone: [facility] Encounters Encounter Date Encounter Type Care Provider Facility Start: 08-28-2024 End: 08-28-2024 ambulatory MIRACLE PADILLA Not Available Start: 08-28-2024 End: 08-28-2024 Postop follow up visit related to original px Miracle Padilla MD Work Phone: [facility] Comment on above: Vertigo (Primary Dx) Start: 08-19-2024 End: 08-19-2024 Office outpatient visit 15 minutes Mame TOPETE Work Phone: [facility] Comment on above: Gastroenteritis (Deena fran Dx); Pharyngitis, unspecified etiology; PND (post-nasal drip) Start: 08-19-2024 End: 08-19-2024 ambulatory MAME JIMÉNEZ Not Available Start: 08-16-2024 End: 08-16-2024 Patient encounter procedure Bella Camara MD Work Phone: [facility] Comment on above: Encounter for survei llance of injectable contraceptive Start: 08-16-2024 End: 08-16-2024 ambulatory BELLA CAMARA Not Available Start: 08-10-2024 End: 08-10-2024 Bamboo flowsheet Miralce Padilla MD Work Phone: [facility] Start: 08-10-2024 End: 08-10-2024 Bamboo flowsheet Miracle Padilla MD Work Phone: [facility] Start: 08-10-2024 End: 08-10-2024 Patient encounter procedure Miracle Padilla MD Work Phone: [facility] Start: 08-10-2024 End: 08-10-2024 Periodic preventive med est patient 18-39 yrs Miracle Padilla MD Work Phone: [facility] Comment on above: Annual physical exam (Primary Dx); Encounter for surveillance of injectable contraceptive; Anxiety; Atypical migraine (CMS/HCC); Difficulty sleeping; Trochanteric bursitis of right hip; S/P lateral meniscus repair of right knee Start: 08-10-2024 End: 08-10-2024 ambulatory MIRACLE PADILLA Not Available Start: 07-03-2024 End: 07-03-2024 ambulatory Usman Murillo [facility] Work Phone: Start: 07-03-2024 End: 07-03-2024 Departed Referred Usman Murillo MD Work Phone: [facility] Start: 05-24-2024 End: 05-25-2024 Clinisync Result Encounter Marilyn Smith NP Work Phone: [facility] Unsolicited Start: 05-24-2024 End: 05-25-2024 Clinisync Result Encounter Marilyn Smith NP Work Phone: [facility] Unsolicited Start: 01-07-2024 End: 01-07-2024 Telephone encounter Bella Camara MD Work Phone: [facility] Comment on above: ER Follow-up Start: 01-06-2024 End: 01-06-2024 Emergency department patient visit MD Miracle Padilla Work Phone: [facility]-Emergency Room Work Phone: Start: 01-05-2024 End: 01-05-2024 [...] Anxiety Start: 11-16-2023 End: 11-16-2023 ambulatory KHOA Jameel MICHAEL Not Available Start: 11-10-2023 End: 11-10-2023 ambulatory MIRACLE PADILLA Not Available Start: 11-03-2023 End: 11-03-2023 ambulatory MIRACLE PADILLA Not Available Start: 11-01-2023 End: 11-01-2023 ambulatory MIRACLE PADILLA Not Available Start: 10-27-2023 End: 10-27-2023 ambulatory MIRACLE PADILLA Not Available Start: 10-21-2023 End: 10-21-2023 ambulatory TREY ALVARADO Not Available Start: 10-20-2023 End: 10-20-2023 ambulatory MIRACLE PADILLA Not Available Start: 10-07-2023 End: 10-07-2023 ambulatory ASHLIE CRANE Not Available Start: 10-07-2023 End: 10-07-2023 ambulatory ASHLIE CRANE Facility:[facility] Start: 10-07-2023 End: 10-07-2023 Patient encounter procedure ASHLIE CRANE [facility] Start: 09-30-2023 End: 09-30-2023 ambulatory ABIGAIL TREJO Not Available Start: 09-23-2023 End: 09-24-2023 ambulatory TREY Shaw MEDJAMIE Not Available Start: 09-22-2023 End: 09-22-2023 ambulatory BELLA CAMARA Not Available Start: 09-17-2023 End: 09-17-2023 ambulatory ASHLIE WHIPPLE Not Available Start: 09-15-2023 End: 09-15-2023 ambulatory GRAZYNA GONZALEZ Not Available Start: 09-13-2023 End: 09-13-2023 ambulatory SHALA CONN Not Available Start: 09-07-2023 End: 09-07-2023 ambulatory TREY ALVARADO Not Available Start: 09-03-2023 End: 09-03-2023 ambulatory ASHLIE WHIPPLE Not Available Start: 05-27-2023 End: 05-27-2023 Emergency department patient visit Michael Panchal astrid [facility] Start: 05-26-2023 End: 05-26-2023 Patient encounter procedure Bella Camara MD Work Phone: [facility] Comment on above: Anxiety Start: 05-25-2023 Bamboo flowsheet Shelly J Chase s PT Work Phone: [facility] Start: 05-25-2023 Bamboo flowsheet Shelly J Chase s PT Work Phone: [facility] Start: 05-24-2023 End: 05-24-2023 Patient encounter procedure Elisabet Giron [facility] Comment on above: Nasal injury, initia l encounter (Primary Dx); Generalized headache; BMI 21.0-21.9, adult Start: 05-24-2023 Bamboo flowsheet Elisabet coburn [facility] Start: 05-24-2023 Bamboo flowsheet Elisabet coburn [facility] Start: 05-19-2023 End: 05-19-2023 Patient encounter procedure Shala Conn PA Work Phone: [facility] Comment on above: It band syndrome, ri ght (Primary Dx); Right hip pain; Trochanteric bursitis of right hip Start: 05-17-2023 End: 05-17-2023 Office outpatient visit 15 minutes Miracle Padilla MD Work Phone: [facility] Comment on above: Trochanteric bursiti s of right hip (Primary Dx) Start: 05-12-2023 End: 05-12-2023 Office outpatient visit 15 minutes Miracle Padilla MD Work Phone: [facility] Comment on above: Trochanteric bursiti s of right hip (Primary Dx); Levoscoliosis Start: 11-10-2022 End: 11-10-2022 Emergency department patient visit Michael Hannah [facility] Start: 04-12-2022 End: 04-13-2022 Emergency department patient visit DO Phillip Tripp Work Phone: [facility]-Emergency Room Work Phone: Start: 04-07-2022 End: 04-08-2022 Emergency department patient visit DO Phillip Tripp Work Phone: [facility]Emergency Room Work Phone: Start: 09-10-2018 End: 09-10-2018 Patient encounter procedure DOCTOR MIS Facility: Procedures Date Procedure Procedure Detail Performing Clinician Start: 08-19-2024 Iadna streptococcus group a amplified probe tq Agustin Hernandez DO Work Phone: Start: 08-16-2024 Urine test visual color cmprsn dheeraj Camara MD Work Phone: Start: 08-10-2024 Urine test visual color cmprsn dheeraj Padilla MD Work Phone: Start: 05-24-2024 HEPATITIS B SURF AB QUANT Marilyn Smith [facility] Work Phone: Start: 05-24-2024 MEASLES/MUMPS/RUBELL A IMMUNITY Marilyn Smith CAM MAKER Work Phone: Start: 05-24-2024 VARICELLA-ZOSTER V A B, IGG Marilyn Smith CAM MAKER Work Phone: Start: 05-19-2023 End: 05-19-2023 Radex spine lumbosacral minimum 4 views Shala TOPETE Work Phone: Start: 04-07-2022 SARS-CoV-2, Influenz a & RSV (PCR) DO Phillip Tripp Work Phone: History of operative procedure on knee S/P lateral meniscus repair of right knee Miracle Padilla MD Work Phone: Plan of Treatment Date Care Activity Detail Author Start: 12-11-2024 Influenza vaccination Influenz a Vaccine (Season Ended) [facility] Start: 11-10-2024 End: 11-10-2024 Patient encounter procedure 11/10/2024 8:15 AM EDT Office [address] [facility] [address] [place] [address] Miracle Padilla MD [address] [place] [address] [facility] Start: 08-10-2024 End: 08-10-2024 Patient encounter procedure 08/10/2024 8:45 AM EDT [address] [facility] [address] [place] [id number] Miracle Padilla MD [address] [place] [address] [facility] Comment on above: Arrived Start: 07-03-2024 Bacteria identified in Urine by Culture Urine Culture [facility] Start: 07-03-2024 Urine culture [facility] Start: 02-15-2024 End: 02-15-2024 Patient encounter procedure 02/15/2024 8:00 AM EST Office [address] [facility] [address] [place] [address] Miracle Padilla MD [address] [place] [address] [facility] Start: 01-18-2024 End: 01-18-2024 Patient encounter procedure 01/18/2024 1:30 PM EDT Office Visit [facility] [address] [place] [id number] Miracle Padilla MD [address] [place] [address] [facility] Start: 12-12-2023 Influenza vaccination Influenz a Vaccine (#1) [facility] Start: 06-11-2023 End: 06-11-2023 ambulatory 06/11/2023 3:30 PM EST Treatment [facility] [address] [place] [phone] Sehlly Arnett, PT [address] [place] [id number] [facility] Start: 06-04-2023 End: 06-04-2023 ambulatory 06/04/2023 4:15 PM EST Treatment [facility] [address] [place] [phone] Shelly Arnett, PT [address] [place], [place] [id number] [facility] Start: 05-25-2023 End: 05-25-2023 ambulatory [facility] Comment on above: It band syndrome, ri ght; Trochanteric bursitis of right hip Start: 05-24-2023 End: 05-24-2023 Patient encounter procedure 05/24/2023 3:30 PM EST Office Visit [facility] [address] [place] [address] Elisabet Giron NP Arrived [facility] Comment on above: Arrived Start: 04-12-2022 Plain chest X-ray XR chest 1V portab le [facility] Start: 04-12-2022 XR Chest Single view [facility] Patient Education [facility] Work Phone: Patient referral [facility] Work Phone: Immunizations Immunization Date Immunization Notes Care Provider Fa [facility] 02-19-2023 influenza, injectabl e, quadrivalent, contains preservative [facility] Work Phone: [facility] 02-19-2023 influenza virus vaccine, unspecified formulation Miracle Padilla MD Work Phone: [facility] 01-15-2020 influenza, injectabl e, quadrivalent, preservative free [facility] Work Phone: [facility] 01-26-2019 influenza, injectabl e, quadrivalent, preservative free [facility] Work Phone: [facility] 01-26-2019 tetanus toxoid, redu baltazar diphtheria toxoid, and acellular pertussis vaccine, adsorbed [facility] Work Phone: [facility] 06-21-2018 tetanus toxoid, redu baltazar diphtheria toxoid, and acellular pertussis vaccine, adsorbed [facility] 06-06-2018 influenza, injectabl e, quadrivalent, preservative free [facility] 01-22-2011 influenza, seasonal, injectable, preservative free [facility] Work Phone: [facility] 01-22-2011 meningococcal polysaccharide (groups A, C, Y and W-135) diphtheria toxoid conjugate vaccine (MCV4P) [facility] Work Phone: [facility] 01-22-2011 tetanus toxoid, redu baltazar diphtheria toxoid, and acellular pertussis vaccine, adsorbed [facility] Work Phone: [facility] 02-16-2009 novel [id number], preservative-free, injectable [facility] Work Phone: [facility] 01-30-2009 influenza virus vaccine, live, attenuated, for intranasal use [facility] Work Phone: [facility] 02-03-2008 influenza, seasonal, injectable [facility] Work Phone: [facility] 03-01-2007 influenza virus vaccine, whole virus [facility] Work Phone: [facility] 07-24-2003 diphtheria, tetanus toxoids and acellular pertussis vaccine [facility] PA Work Phone: [facility] 07-24-2003 measles, mumps and rubella virus vaccine [facility] Work Phone: [facility] 07-24-2003 poliovirus vaccine, inactivated [facility] Work Phone: [facility] 03-22-2003 influenza, seasonal, injectable [facility] Work Phone: [facility] 09-30-2000 pneumococcal conjuga te vaccine, [address] [facility] Work Phone: [facility] 04-08-2000 influenza, seasonal, injectable [facility] PA Work Phone: [facility] 02-12-2000 influenza virus vaccine, whole virus [facility] Work Phone: [facility] 10-17-1999 diphtheria, tetanus toxoids and acellular pertussis vaccine, unspecified formulation [facility] PA Work Phone: [facility] 10-17-1999 haemophilus influenz ae type b vaccine, conjugate unspecified formulation [facility] PA Work Phone: [facility] 10-17-1999 measles, mumps and rubella virus vaccine [facility] Work Phone: [facility] 05-14-1999 poliovirus vaccine, inactivated [facility] Work Phone: [facility] 04-10-1999 diphtheria, tetanus toxoids and acellular pertussis vaccine, unspecified formulation [facility] Work Phone: [facility] 04-10-1999 haemophilus influenz ae type b vaccine, conjugate unspecified formulation [facility] PA Work Phone: [facility] 04-10-1999 hepatitis B vaccine, pediatric or pediatric/adolescent dosage [facility] Work Phone: [facility] 04-10-1999 trivalent poliovirus vaccine, live, oral [facility] Work Phone: [facility] 01-29-1999 diphtheria, tetanus toxoids and acellular pertussis vaccine, unspecified formulation [facility] PA Work Phone: [facility] 01-29-1999 haemophilus influenz ae type b vaccine, conjugate unspecified formulation [facility] PA Work Phone: [facility] 01-29-1999 poliovirus vaccine, inactivated [facility] Work Phone: [facility] 1998 diphtheria, tetanus toxoids and acellular pertussis vaccine, unspecified formulation [facility] Work Phone: [facility] 1998 haemophilus influenz ae type b vaccine, conjugate unspecified formulation Shala [place] PA Work Phone: [facility] 1998 hepatitis B vaccine, pediatric or pediatric/adolescent dosage Shala Conn PR Work Phone: [facility] 1998 poliovirus vaccine, inactivated Shala Conn PR Work Phone: [facility] 1998 hepatitis B vaccine, pediatric or pediatric/adolescent dosage Shala [facility] Work Phone: [facility] NEGATED: Highlighted row has not occurred!03-03-2019 tetanus toxoid, reduced diphtheria toxoid, and acellular pertussis vaccine, adsorbed DO Phillip Tripp Work Phone: [facility] Payers Date Payer Category Payer [facility] er [id number] 2024 Unknown [id number] 2024 Self-pay [id number] [address] [employer] PLUS [id number] 2022-Present [address] [place] [address] [id number] 1998 Unknown [id number] 2.16.840.1.799696.3.579.2 .593 1998 Unknown [id number] 2.16.840.1.111902.3.579.2 .727 1998 Unknown [id number] 2.16.840.1.512439.3.579.2 .727 1998 Unknown [id number] 2.16.840.1.685694.3.579.2 .727 1998 Unknown [id number] 2.16.840.1.769713.3.579.2 .1258 1998 Unknown [id number] 2.16.840.1.696197.3.579.2 .1258 1998 Unknown [id number] 2.16.840.1.503019.3.579.2 .1258 1998 Unknown [id number] 2.16.840.1.232954.3.579.2 .1258 1998 Unknown [id number] 2.16.840.1.212648.3.579.2 .1258 1998 Unknown [id number] 2.16.840.1.658343.3.579.2 .1258 1998 Unknown [id number] 2.16.840.1.320742.3.579.2 .1258 1998 Unknown [id number] 2.16.840.1.956638.3.579.2 .1258 1998 Unknown [id number] 2.16.840.1.051541.3.579.2 .1258 1998 Unknown [id number] 2.16.840.1.289745.3.579.2 .1258 1998 Unknown [id number] 2.16.840.1.315384.3.579.2 .1258 1998 Unknown [id number] 2.16.840.1.012930.3.579.2 .1258 1998 Unknown [id number] 2.16.840.1.191861.3.579.2 .1258 1998 Unknown [id number] 2.16.840.1.944951.3.579.2 .1258 1998 Unknown [id number] 2.16.840.1.355954.3.579.2 .1258 1998 Unknown [id number] 2.16.840.1.464888.3.579.2 .1258 1998 Unknown [id number] 2.16.840.1.201301.3.579.2 .1258 1998 Unknown [id number] 2.16.840.1.987847.3.579.2 .1258 1998 Unknown [id number] 2.16.840.1.540876.3.579.2 .1258 1998 Unknown [id number] 2.16.840.1.681243.3.579.2 .1258 1998 Unknown [id number] 2.16.840.1.918003.3.579.2 .1258 1998 Unknown [id number] 2.16.840.1.236149.3.579.2 .1258 1998 Unknown [id number] 2.16.840.1.358691.3.579.2 .9 1959 Unknown [id number] Unknown [id number] Private Health Insurance [id number] Unknown [id number] 2.16.840.1.353263.3.579.2 .531 Unknown [id number] 2.16840.1.302298.3.579.2 .531 Worker's Compensation Industrial Self Ins Misc [id number] Social History Date Type Detail Facility Tobacco smoking stat [facility] Unknown if ever smoked [facility] Start: 2000 Sex Assigned At Female F [facility] Start: 04-12-2014 End: 04-12-2022 Tobacco smoking status NHIS Smoker (finding) [facility] Start: 11-10-2022 Tobacco smoking status Heavy t obacco smoker (finding) [facility] Start: 10-14-2022 End: 03-02-2023 Sex Assigned At Female [facility] Start: 04-12-2014 End: 05-19-2023 Tobacco smoking status NCIS Smokes tobacco daily [facility] Start: 04-12-2014 History of tobacco use Cigarette Smo ker [facility] Start: 10-14-2022 End: 05-19-2023 Cigarettes smoked current (pack per day) - Reported 0.3 [facility] Start: 05-19-2023 End: 11-16-2023 Tobacco use and exposure Smokeless tobacco non-user [facility] Start: 05-19-2023 End: 08-19-2024 Alcohol intake Ex-drinker (finding) [facility] Within the last year , have you been afraid of your partner or ex-partner? No [facility] How often do you att end evangelical or buddhism services? Patient refused [facility] Are you [...] To some extent [facility] (I/We) worried roxie er (my/our) food would run out before (I/we) got money to buy more. Never true [facility] Start: 11-30-2022 Alcohol Comment 1-2 drinks les s than monthly in the past year, Caffeine intake: 3-4 cups per day occasional, soda/pop [facility] Start: 1998 Sex Assigned At Not on file [facility] Start: 11-16-2023 End: 01-06-2024 Tobacco smoking status NHIS Ex-smoker (finding) [facility] Start: 07-04-2024 Sex Female (finding) [facility] Goals Date Patient Goal Desired Activity /State Functional Status Date Assessment Result Facility 05-27-2023 Functional Status N/A [facility] 11-10-2022 Functional Status N/A [facility] Clinical Notes 09-05-2021 to 08-28-2024 Miracle Padilla MD - 08/28/2024 10:45 AM [facility] Kathleen - 08/19/2024 12:45 PM Chris Borrego MA - 08/16/2024 1:45 PM EDTPlaure Padilla MD - 08/10/2024 8:45 AM EDT Note Date & Type Note Facility 08-28-2024 History of Present illness Narrative Images from the original note were not included. Maury Collazo is a 23 y.o. female presents with chief complaint of No chief complaint on file. HPI: History of Present Illness MEDICATIONS: Current Outpatient Medications Medication Instructions acetaminophen (Tylenol) 325 MG tablet albuterol HFA 90 mcg/act inhaler 2 puffs, Inhalation, Every 4 hours PRN albuterol 2.5 mg, Nebulization, Every 6 hours PRN buPROPion XL (Wellbutrin XL) 150 MG 24 hr tablet 1 tab po bid busPIRone (BUSPAR) 10 mg, Oral, 3 times daily etodolac XL (LODINE XL) 500 mg, Oral, Daily fluticasone (Flonase) 50 MCG/ACT nasal spray 1-2 sprays, Each Nostril, Daily, Shake gently. Before first use, prime pump. After use, clean tip and replace cap. meclizine (ANTIVERT) 25 mg, Oral, 3 times daily PRN medroxyPROGESTERone (DEPO-PROVERA) 150 mg, Intramuscular, Once Rimegepant Sulfate (Nurtec) 75 MG tablet dispersible 1 tablet, Oral, Every other day topiramate (TOPAMAX) 25 mg, Oral, Nightly traZODone (DESYREL) 50 mg, Oral, Nightly ALLERGIES: Allergies Allergen Reactions Cefdinir Other Reaction(s): lip swelling Penicillins Rash Review of Systems Medical, Surgical, Family, and Social History reviewed. OBJECTIVE: Visit Vitals OB Status Having periods Smoking Status Former BP Readings from Last 3 Encounters: 08/19/24 116/68 08/10/24 120/70 11/10/23 104/66 Wt Readings from Last 3 Encounters: 08/10/24 149 lb 11/16/23 150 lb 11/10/23 150 lb 9.6 oz Physical Exam Physical Exam Results ASSESSMENT AND PLAN: Assessment & Plan Assessment/Plan There are no preventive care reminders to display for this patient. documented in this encounter [facility] 08-19-2024 History of Present illness Narrative Images from the original note were not included. [address] , [address] [facility], [address] P: [phone] F: [phone] HPI Historian of HPI: patient Maury Collazo is a 23 y.o. female who presents today to the Urgent Care with the following complaints and denials which have been present for 1 day(s) C/O Denies Symptom Comments [] [x] Runny Nose [] [x] Difficulty Swallowing [x] [] Sore Throat [] [x] Cough [] [x] Ear Pain [] [x] Fever [] [x] Chills [] [x] Nasal Congestion [] [x] Myalgia [x] [] Sinus Pain [x] [] Sinus Pressure Additional Comments: pt has taken cough drops OTC medication without relief Pt states she did vomit this morning. Pt is agreeable to strep testing. Current Outpatient Medications on File Prior to Visit Medication Sig Dispense Refill albuterol HFA 90 mcg/act inhaler Inhale 2 puffs every 4 (four) hours if needed (cough). 18 g 3 buPROPion XL (Wellbutrin XL) 150 MG 24 hr tablet 1 tab po bid 180 tablet 1 busPIRone (Buspar) 10 MG tablet Take 1 tablet (10 mg) by mouth in the morning and 1 tablet (10 mg) in the evening and 1 tablet (10 mg) before bedtime. 90 tablet 3 etodolac XL (Lodine XL) 500 MG 24 hr tablet Take 1 tablet (500 mg) by mouth Daily 30 tablet 11 medroxyPROGESTERone (Depo-Provera) 150 MG/ML suspension prefilled syringe injection syringe Inject 1 mL (150 mg) into the shoulder, thigh, or buttocks 1 (one) time for 1 dose 1 mL 3 Rimegepant Sulfate (Nurtec) 75 MG tablet dispersible Take 1 tablet by mouth every other day 30 tablet 11 topiramate (Topamax) 25 MG tablet Take 1 tablet (25 mg) by mouth at bedtime 30 tablet 11 traZODone (Desyrel) 50 MG tablet Take 1 tablet (50 mg) by mouth at bedtime 90 tablet 3 acetaminophen (Tylenol) 325 MG tablet albuterol (2.5 MG/3ML) 0.083% nebulizer solution Take 3 mL (2.5 mg) by nebulization every 6 (six) hours if needed for wheezing. (Patient not taking: Reported on 08/10/2024) 75 mL 11 [DISCONTINUED] medroxyPROGESTERone (Depo-Provera) 150 MG/ML suspension prefilled syringe injection syringe Inject 1 mL (150 mg) into the shoulder, thigh, or buttocks 1 (one) time for 1 dose (Patient not taking: Reported on 08/10/2024) 1 mL 3 No current facility-administered medications on file prior to visit. Allergies Allergen Reactions Cefdinir Other Reaction(s): lip swelling Penicillins Rash Social History Tobacco Use Smoking status: Former Current packs/day: 0.25 Average packs/day: 0.3 packs/day for 10.8 years (2.7 ttl pk-yrs) Types: Cigarettes Start date: 04/12/2014 Smokeless tobacco: Never Vaping Use Vaping status: Never Used Substance Use Topics Alcohol use: Not Currently Comment: 1-2 drinks less than monthly in the past year, Caffeine intake: 3-4 cups per day occasional, soda/pop Drug use: Never Family History Problem Relation Name Age of Onset Endometriosis Mother Arthritis Father Murtaza Cancer Maternal Grandmother Mame Other (HTN) Maternal Grandfather Grandfather (both) Cancer Maternal Grandfather Grandfather (both) Stroke Maternal Grandfather Grandfather (both) COPD Maternal Grandfather Grandfather (both) Heart disease Maternal Grandfather Grandfather (both) Arthritis Maternal Grandfather Grandfather (both) Other cancer Paternal Grandmother Mame Bladder Cancer Paternal Grandmother Mame Diabetes Paternal Grandfather Grandpa Other (HTN) Paternal Grandfather Grandpa Stroke Sibling Past Medical History: Diagnosis Date Allergic rhinitis Ankle sprain Anxiety Arthritis Bursitis of hip Depression (CMS/HCC) Dislocation of finger Fracture of ankle Fracture of hand Fracture of wrist Fracture, foot Headache History of pineal cyst 2013 Knee sprain Migraine Ovarian cyst Personal history of medical treatment Type A positive Psychogenic nonepileptic seizure Ruptured eardrum 2005 Scoliosis Stress fracture Tear of meniscus of knee Wrist sprain Past Surgical History: Procedure Laterality Date ADENOIDECTOMY EAR RECONSTRUCTION Left IUD INSERTION 04/20/2019 Nexplanon insertion KNEE ARTHROPLASTY KNEE ARTHROSCOPY W/ DEBRIDEMENT Right 07/16/2023 MTP - TSCNCO OTHER SURGICAL HISTORY Excision of vaginal wall cyst TONSILLECTOMY 2009 TYMPANOSTOMY 2007 VAGINAL DELIVERY 2019 Visit Vitals BP 116/68 Pulse 98 Temp 97.1 F SpO2 99% OB Status Having periods Smoking Status Former ROS A complete system ROS was performed and negative aside from the pertinent positives noted in the HPI and PE. PHYSICAL EXAM Physical Exam Constitutional: General: She is not in acute distress. Appearance: Normal appearance. She is well-developed. HENT: Head: Normocephalic and atraumatic. Right Ear: Ear canal normal. Tympanic membrane is injected (Mild). Left Ear: Ear canal normal. Tympanic membrane is injected (Mild). Nose: Right Turbinates: Swollen. Left Turbinates: Swollen. Mouth/Throat: Mouth: Mucous membranes are moist. Pharynx: Posterior oropharyngeal erythema (Moderate) and postnasal drip present. Eyes: General: No scleral icterus. Conjunctiva/sclera: Conjunctivae normal. Cardiovascular: Rate and Rhythm: Normal rate and regular rhythm. Heart sounds: Normal heart sounds. No murmur heard. Pulmonary: Effort: Pulmonary effort is normal. No respiratory distress. Breath sounds: Normal breath sounds. No wheezing, rhonchi or rales. Abdominal: General: Bowel sounds are normal. Palpations: Abdomen is soft. Tenderness: There is no abdominal tenderness. There is no guarding. Lymphadenopathy: Cervical: Cervical adenopathy (Tender) present. Right cervical: Superficial cervical adenopathy present. Left cervical: Superficial cervical adenopathy present. Skin: General: Skin is warm and dry. Neurological: General: No focal deficit present. Mental Status: She is alert and oriented to person, place, and time. Psychiatric: Mood and Affect: Mood normal. Behavior: Behavior normal. Assessment/Plan Diagnoses and all orders for this visit: Gastroenteritis - ondansetron ODT (Zofran-ODT) 4 MG disintegrating tablet; Take 1 tablet (4 mg) by mouth every 8 (eight) hours if needed for nausea or vomiting for up to 7 days Reassurance given that this is most likely viral and should gradually improve. Start the above medication as needed for nausea. Increase water intake, sipping clear fluids frequently, get plenty of rest. Keep to a bland diet. BRATY diet reviewed. Can take Tylenol prn for any discomfort or fever. Encouraged Probiotic. Wash hands often, and avoid sharing food/drinks. Follow up iwith PCP if no improvement in one week. Pharyngitis, unspecified etiology - STREP DNA PROBE Reassurance given that the strep test was negative today. PND (post-nasal drip) - fluticasone (Flonase) 50 MCG/ACT nasal spray; Administer 1-2 sprays into each nostril Daily Shake gently. Before first use, prime pump. After use, clean tip and replace cap. Start above as prescribed to help with the drainage. ZORA ManzanaresC documented in this encounter [facility] 08-16-2024 History of Present illness Narrative Rx for Depo sent to pharmacy per Dr. Camara. documented in this encounter [facility] 08-10-2024 History of Present illness Narrative Images from the original note were not included. Maury Collazo is a 23 y.o. female presents with chief complaint of Annual Exam (In need of annual lab work. ), Med Refill (Patient in need of refills on all medications. ), and Contraception (In need of restarting depo injection. test completed today in office, second test to be completed in 1 week. ) HPI: History of Present Illness The patient presents for medication refills. The chief complaint is the need to resume her regular medication regimen after a period without insurance. She has been taking Wellbutrin 1 tablet every other day for the past 2 months, instead of her usual 2 tablets daily. Participation in group therapies has helped regulate her emotions, and she requests a refill of Wellbutrin. BuSpar is taken as needed, and a refill is requested. Topiramate 25 mg is taken at bedtime for migraine prevention. Although the frequency of migraines has decreased, they still occur occasionally, and a refill is requested. Etodolac is needed for hip pain, which has worsened following a long drive from [place]. She has discontinued the use of Zanaflex and loratadine. Trazodone is used sparingly as needed, and a refill is requested. No inhalers are currently used, and there has been no recent need for them. Overall health is reported as good, with no recent illnesses. Healthy eating habits have led to weight gain. No episodes of fainting or other health concerns are reported. Smoking cessation has been maintained for a year. 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 She has quit smoking for a year now. MEDICATIONS: Current Outpatient Medications Medication Instructions acetaminophen (Tylenol) 325 MG tablet albuterol HFA 90 mcg/act inhaler 2 puffs, Inhalation, Every 4 hours PRN albuterol 2.5 mg, Nebulization, Every 6 hours PRN buPROPion XL (Wellbutrin XL) 150 MG 24 hr tablet 2 tabs in am, 1 tab in pm busPIRone (BUSPAR) 10 mg, Oral, 3 times daily etodolac XL (LODINE XL) 500 mg, Oral, Daily loratadine (CLARITIN) 10 mg, Oral, Daily medroxyPROGESTERone (DEPO-PROVERA) 150 mg, Intramuscular, Once Rimegepant Sulfate (Nurtec) 75 MG tablet dispersible 1 tablet, Oral, Every other day tiZANidine (ZANAFLEX) 4 mg, Oral, Every 8 hours PRN topiramate (TOPAMAX) 25 mg, Oral, Nightly traZODone (DESYREL) 50 mg, Oral, Nightly ALLERGIES: Allergies Allergen Reactions Cefdinir Other Reaction(s): lip swelling Penicillins Rash Review of Systems Medical, Surgical, Family, and Social History reviewed. OBJECTIVE: Visit Vitals BP 120/70 (BP Location: Right arm, Patient Position: Sitting, BP Cuff Size: Adult) Pulse 68 Temp 98.2 F (Temporal) Ht 5' 9 Wt 149 lb SpO2 99% BMI 22.00 kg/m OB Status Having periods Smoking Status Former BSA 1.81 m BP Readings from Last 3 Encounters: 08/10/24 120/70 11/10/23 104/66 11/01/23 115/80 Wt Readings from Last 3 Encounters: 08/10/24 149 lb 11/16/23 150 lb 11/10/23 150 lb 9.6 oz Physical Exam Physical Exam Respiratory: Clear to auscultation, no wheezing, rales or rhonchi Cardiovascular: Regular rate and rhythm, no murmurs, rubs, or gallops Extremities: No edema, no cyanosis Results Labs - Cholesterol levels: 2022, Normal ASSESSMENT AND PLAN: Assessment & Plan 1. Medication management. - Has been taking Wellbutrin 1 tablet every other day for the past 2 months due to insurance issues. - Will start with 1 tablet daily for about a week before returning to her usual dose of 2 tablets daily. - Discussed the plan to gradually increase the dose to avoid potential side effects. - Prescription for Wellbutrin will be sent to [facility]. 2. Migraine. - Experiences migraines infrequently but still requires preventive medication. - Physical exam and history indicate the need for continued migraine prophylaxis. - Discussed the benefits of resuming topiramate 25 mg at bedtime. - Prescription for topiramate will be sent to [facility]. 3. Hip pain. - Reports hip pain, especially after a long drive from [place]. - Physical exam findings support the need for anti-inflammatory medication. - Discussed the continued use of etodolac for inflammation management. - Prescription for etodolac will be sent to [facility]. 4. Anxiety. - Uses BuSpar as needed for anxiety management. - History and patient report indicate effective control of anxiety symptoms with current medication. - Discussed the continued need for BuSpar as needed. - Prescription for BuSpar will be sent to [facility]. Assessment/Plan There are no preventive care reminders to display for this patient. documented in this encounter [facility] 01-07-2024 Telephone encounter Note Lvmtcb please complete ayah [facility] 01-07-2024 Miscellaneous Notes Lvmtcb please complete ayah Per fax inbox pt was seen [facility] [place] [place] 01/05 low back pain documented in this encounter [facility] 01-07-2024 Telephone encounter Note Per fax inbox pt was seen [facility] [place] [place] 01/05 low back pain [facility] 01-05-2024 Telephone encounter Note Called [facility] [place] instead [facility] 01-05-2024 Miscellaneous Notes Called [facility] instead For what symptoms or pain? Pt calls and asks for a referral to pain management, please advise thank you documented in this encounter [facility] 01-05-2024 Telephone encounter Note For what symptoms or pain? [facility] 01-05-2024 Telephone encounter Note Pt calls and asks for a referral to pain management, please advise thank you [facility] 12-31-2023 History of Present illness Narrative Images from the original note [...] Vaccine (1) 12/12/2023 documented in this encounter [facility] 05-27-2023 Hospital Discharge instructions Patient Education 05/27/2023 13:04:44 Knee Sprain, [...] sitting or lying down. General instructions Take bzuw-lqx-uayxhut and prescription medicines only as told by [...] provider. Document Revised: 07/06/2022 Document Reviewed: 02/16/2020 [employer] Patient Education 2022 [employer]. Follow Up Care 05/27/2023 11:17:41 With:Russell Chavez Address: [address] [place], [place] [id number] [facility] (1) When:05/30/2023 12:39:45 [facility] 05-27-2023 Evaluation + Plan note Extrac charli from: Title:ED Note Author:Pola Purcell PA-C te:05/27/23 Knee sprain (S83.90XA: Sprai n of unspecified site of unspecified knee, initial encounter) Orders: Knee Brace XR Knee Complete 4+ Views Right [facility]02-14-2024 History of Present illness Narrative* [...] further adjustments if necessary. [id number] History of Present illness Narrative* Elisabet Giron [...] sub stitutions have occurred. documented in [facility] [id number] History of Present illness Narrative* EFREM Mccabe [...] ultrasound guidance. EFREM Mccabe documented in this [facility]02-07-2024 Instructions* Patient Instructions* EFREM Mccabe - [...] cortisone under ultrasound guidance. documented in this [facility]02-05-2024 History of Present illness Narrative* Maame [...] She states she is going to call [facility] appointment, She saw Shala Conn previously. [...] the decisions I made. [facility] [id number] History of Present illness Narrative* Maame Whitten - 05/12/2023 11:30 AM EST Maury Collazo [...] the decisions I made. documented in [facility] encounterDo[facility] [id number] Hospital Discharge instructions Patient Education 11/10/2022 19:05:26 [...] to any changes in your symptoms. Take fqnl-hjy-tauhakr and prescription medicines only as told by [...] provider. Document Revised: 11/15/2021 Document Reviewed: 11/15/2021 [employer] Patient Education 2022 [employer]. 11/10/2022 19:05:26 Abdominal Pain, Adult Abdominal Pain, [...] Follow these instructions at home: Medicines Take yoak-vux-kmfawmu and prescription medicines only as told by [...] Watch your condition for any changes. Take skmc-jbg-dumrpfj and prescription medicines only as told by [...] provider. Document Revised: 05/17/2020 Document Reviewed: 08/07/2019 [employer] Patient Education 2022 [employer]. Follow Up Care 11/10/2022 15:59:56 With:Bella Camara Address: [address] [place] [address]- Business (1) When:11/13/2022 18:55:01 Comments:Retrurn to the emergency room if your shortness of breath recurs, abdominal pain recurs or any new symptoms. [facility]08-01-2023 Evaluation + Plan noteExtracted from: [...] With Cult Reflex XR Chest Single View [facility]05-27-2022 NoteHISTORY: Mid to lower back [...] signed by Jonnie Jacob on 09/09/2021 1057[facility] SpecialistEvaluation noteNo assessment information availableC[facility] Clinic [facility] Work Phone: Evaluation note* Diagnosis It band syndrome, right- Primary Right hip pain Pain in joint, pelvic region and thigh Trochanteric bursitis of right hip [facility] Diagnosis Trochanteric bursitis of right hip- Primary documented in this encounter [facility]* Diagnosis Nasal injury, initial encounter- Primary Generalized headache BMI 21.0-21.9, adult [facility]* Diagnosis Trochanteric bursitis of right hip- Primary Levoscoliosis [facility]* Diagnosis Anxiety Anxiety state, unspecified [facility]* Diagnosis Difficulty sleeping Unspecified sleep disturbance Anxiety Anxiety state, unspecified [facility]* Diagnosis Encounter for surveillance of injectable contraceptive [facility]* Diagnosis Gastroenteritis- Primary Other and unspecified noninfectious gastroenteritis and colitis Pharyngitis, unspecified etiology PND (post-nasal drip) Postnasal drip [facility]* Diagnosis Annual physical exam- Primary Routine general medical examination at a health care facility Encounter for surveillance of injectable contraceptive Anxiety Anxiety state, unspecified Atypical migraine (CMS/HCC) Other forms of migraine, without mention of intractable migraine without mention of status migrainosus Difficulty sleeping Unspecified sleep disturbance Trochanteric bursitis of right hip S/P lateral meniscus repair of right knee documented in this encounter [facility] HealthcareEvaluation note* Diagnosis Vertigo- Primary Dizziness and giddiness documented in this encounter [facility] HealthcareHospital course Narrative No data available for this section [facility] Additional Instructions If your symptoms return/worsen or you develop any further concerns or symptoms please see your doctor or return to the emergency department immediately.[facility] Work Phone: Hospital Discharge instructions Additional Instructions Increase your intake of fluids. Take Zofran as prescribed for any nausea. Take Tamiflu to help decrease the duration of symptoms. Take Motrin Tylenol as needed for fever and chest pain. Follow-up with PCP for any persistent symptoms in 5 to 7 days.[facility] Work Phone: Hospital Discharge instructions No data available for this section [facility] note No data available for this section [facility] Summary Purpose Family History Relationship [...] and back pa in, left leg tingling Chief Complaint Admit Date Unknown July 03, 2024 3:4 9am Reason for Referral Specialty Diagnoses / Procedures Referred By Angel t Referred To Contact Physical Therapy Diagnoses It band syndrome, right Trochanteric bursitis of right hip Procedures [place] OFFICE/OUTPATIENT [facility] 60 MINUTES Shala Conn, PA [address] [place] [address] Daja Carter, PT [address] [place] [address] Referral ID Status Reason Start Date Expiration Date Visits Requested Visits Authorized [id number] Pending Review Specialty Services Required 05/19/2023 11/15/2023 1 1 Additional Source Comments INFORMATION SOURCE (unrecogn ized section and content) DATE CREATED AUTHOR 09/14/2018 [facility] DATE CREATED AUTHOR AUTHOR'S ORGANIZ ATION 10/01/2020 [facility] DATE CREATED AUTHOR AUTHOR'S ORGANIZ ATION 10/05/2020 [facility] DATE CREATED AUTHOR AUTHOR'S ORGANIZ ATION 09/09/2021 [facility] dical Specialist DATE CREATED AUTHOR AUTHOR'S ORGANIZ ATION 10/16/2023 [facility] DATE CREATED AUTHOR AUTHOR'S ORGANIZ ATION 07/28/2024 [facility] DATE CREATED AUTHOR AUTHOR'S ORGANIZ ATION 08/29/2024 [facility] dical Specialists EPIC Care Teams (unrecognized sec [...] Phillip Shaw , DO Emergency Provider Active Materials Planner Relationship Specialty Start Date End Date Bella Camara MD [address] [place] [address] PCP - General Family Medicine 09/04/22 Morenita Corona PA [address] [place] [address] PCP - Medical [place] [employer] 09/10/22 Materials Planner Relationship Specialty Start Date End Date Bella Camara MD [address] [place] [address] PCP - General Family Medicine 09/04/22 Morenita Corona PA [address] [place] [address] PCP - Medical [place] [employer] 09/10/22 Materials Planner Relationship Specialty Start Date End Date Bella Camraa MD [address] [place] [address] PCP - General Family Medicine 09/04/22 Morenita Corona, PA [address] [place] [address] PCP - Medical [place] [employer] 09/10/22 Materials Planner Relationship Specialty Start Date End Date eBlla Camara MD [address] [place] [address] PCP - General Family Medicine 09/04/22 Morenita Corona, PA [address] [place] [address] PCP - Medical [place] [employer] 09/10/22 Materials Planner Relationship Specialty Start Date End Date Bella Camara MD [address] [place] [address] PCP - General Family Medicine 09/04/22 Morenita Corona, PA [address] [place] [address] PCP - Medical [place] [employer] 09/10/22 Materials Planner Relationship Specialty Start Date End Date Bella Camara MD [address] [place] [address] PCP - General Family Medicine 09/04/22 Morenita Corona, PA [address] [place] [address] PCP - Medical [place] [employer] 09/10/22 Materials Planner Relationship Specialty Start Date End Date Bella Camara MD [address] [place] [address] PCP - General Family Medicine 09/04/22 Morenita Corona PA [address] [place] [address] PCP - Medical [place] [employer] 09/10/22 Team Status: Active Member Role Status Dates Miracle Padilla MD Primary Care Provider Active Team Status: Inactive Member Role Status Dates Miracle Padilla MD Primary Care Provider Active S tart: January 06, 2024 End: January 06, 2024 Cuco Hall APRN Emergency Provider Active Start: January 06, 2024 End: January 06, 2024 Materials Planner Relationship Specialty Start Date End Date Bella Camara MD [address] [place] [address] PCP - General Family Medicine 09/04/22 01/06/24 Materials Planner Relationship Specialty Start Date End Date Bella Camara MD [address] [place] [address] PCP - General Family Medicine 09/04/22 Materials Planner Relationship Specialty Start Date End Date Bella Camara MD [address] [place] [address] PCP - General Family Medicine 09/04/22 Materials Planner Relationship Specialty Start Date End Date Miracle Padilla MD [address] [place] [address] PCP - General Family Medicine 01/07/24 Materials Planner Relationship Specialty Start Date End Date Miracle Padilla MD [address] [place] [address] PCP - General Family Medicine 01/07/24 Team Status: Inactive Member Role Status Dates Usman Murillo MD Attending Provider Active St art: July 03, 2024 End: July 03, 2024 Materials Planner Relationship Specialty Start Date End Date Miracle Padilla MD [address] [place] [address] PCP - General Family Medicine 01/07/24 Materials Planner Relationship Specialty Start Date End Date Miracle Padilla MD [address] [place] [address] PCP - General Family Medicine 01/07/24 Materials Planner Relationship Specialty Start Date End Date Miracle Padilla MD [address] [place] [address] PCP - General Family Medicine 01/07/24 Materials Planner Relationship Specialty Start Date End Date Miracle Padilla MD [address] [place] [address] PCP - General Family Medicine 01/07/24 Materials Planner Relationship Specialty Start Date End Date Miracle Padilla MD [address] [place] [address] PCP - General Family Medicine 01/07/24 Goals (unrecognized section and content) Goals may be documented in a n alternate sectionGoals may be documented in an alternate section No data available for this section No data available for this section No data available for this sectionGoals may be documented in an alternate sectionGoals may be documented in an alternate section Reason for Visit (unrecogniz ed section and content) Reason Comments Pain Reason Comments Facial Injury Reason Comments Hip Pain Reason Onset Date Comments Referral 01/05/2024 Reason Onset Date Comments ER Follow-up 01/07/2024 Reason Comments Contraception Patient here today f or second test and depo Rx. Reason Comments Annual Exam In need of annual la b work. Med Refill Patient in need of r efills on all medications. Contraception In need of restartin g depo injection. test completed today in office, second test to be completed in 1 week. FOR RECORDS PERTAINING TO PATIENTS WHO ARE [...] BE BASED ON THE PRIMARY CLINICAL RECORDS. [employer] [facility]. provides no warranty or guarantee of the accuracy or completeness of information in this document.
--- OUTSIDE RECORDS SUMMARY | 2024-11-19 07:57 | XMS_ITS | Encounter Summary ---
Author Organization [facility] Address [address] [place] [address] Care Team Providers Care Business Law Professor Name Role Phone Bella Camara MD Primary Care Provider [phone] Morenita Corona Unavailable [phone] Baldomero Padilla MD Primary Care Provider [phone] Encounter Details Date Type Department Care Team (Late st Contact Info) Description 03/27/2023 Abstract [facility] [address] [facility] [address] [place] [address] Grabiel Castellanos MD [address] [facility] [address] [place] [address] Social History Tobacco Use Types Packs/Day Years [...] How often do you attend chur or restorationist services? Patient declined 10/14/2022 Do you belong to any clubs o r organizations such as adventist groups, unions, fraternal or athletic groups, or [...] Patient Health Questionnaire-2 Score 2 03/02/2023 [facility] - Occupational [...] place to sleep or slept in a chcf (including now)? No 10/14/2022 Comments Unknown Sex [...] Family Medicine [address] [place] [address] Baldomero Padilla MD [address] [place] [address] documented as of this encounter Visit Diagnoses Not on filedocumented in this encounter Care Teams Business Law Professor Relationship Specialty Start Date End Date Bella Camara MD [address] [place] [address] PCP - General Family Medicine 09/04/22 01/06/24 Morenita Corona PA [address] [place] [address] PCP - Medical [place] [employer] 09/10/22 06/19/23 Baldomero Padilla MD [address] [place] [address] PCP - General Family Medicine 01/07/24 documented as of this encounter
--- OUTSIDE RECORDS SUMMARY | 2024-11-19 07:57 | XMS_ITS | Encounter Summary ---
Author Organization [facility] Address [address] [place] [address] Care Team Providers Care Laminator [employer] Boards Name Role Phone Bella Camara MD Primary Care Provider [phone] Baldomero Padilla MD Primary Care Provider [phone] Encounter Details Date Type Department Care Team (Late st Contact Info) Description 07/12/2023 [facility] [address] [place] [address] Jose Cason DO [address] [place] [address] Acute tear of posterior horn of medial meniscus (Primary Dx) Social History Tobacco Use Types Packs/Day Years [...] How often do you attend chur or jain services? Patient declined 10/14/2022 Do you belong to any clubs o r organizations such as synagogue groups, unions, fraternal or athletic groups, or [...] Recorded Patient Health Questionnaire-2 Score 2 03/02/2023 [facility] - Occupational Stress [...] place to sleep or slept in a halfway (including now)? No 10/14/2022 Comments Unknown Sex [...] [facility] [address] [place] [id number] Baldomero Padilla MD [address] [place] [address] documented as of this encounter Visit Diagnoses Diagnosis Acute tear of posterior horn of medial meniscus- Primary documented in this encounter Care Teams [employer] Relationship Specialty Start Date End Date Bella Camara MD [address] [place] [address] PCP - General Family Medicine 09/04/22 01/06/24 Baldomero Padilla MD [address] [place] [address] PCP - General Family Medicine 01/07/24 documented as of this encounter
--- OUTSIDE RECORDS SUMMARY | 2024-11-19 07:57 | XMS_ITS | Patient Health Record ---
Author Organization [facility] Address [address] [place] [address] Care Team Providers Care Rehabilitation Engineer Name Role Phone PorterSang christensen [facility] [phone] Reason For Referral No Information Plan Of Treatment No Information
[2024-11-19 08:04] LABS: Hematocrit 42.4 % (36.0-48.0); Hemoglobin 14.6 g/dL (12.0-16.0); Immature Granulocytes Abs Auto 0.02 10^3/uL (0.00-0.03); Immature Granulocytes Pct Auto 0.2 % (0.0-0.5); Lymphocytes Absolute Auto 0.9 10^3/uL (1.2-3.8); Mean Corpuscular HGB Conc 34.4 g/dL (29.9-35.2); Mean Corpuscular Hemoglobin 31.3 pg (26.7-34.0); Mean Corpuscular Volume 90.8 fL (81.0-99.0); Platelet Count 236 10^3/uL (150-450); Red Blood Count 4.67 10^6/uL (4.20-5.40); White Blood Count 9.4 10^3/uL (4.0-11.0)
[2024-11-19 08:19] LABS: Alanine Aminotransferase 43 U/L (14-59); Albumin Globulin Ratio 1.4; Albumin Level 4.9 g/dL (3.4-5.0); Alkaline Phosphatase 64 U/L (46-116); Anion Gap 16.3; Aspartate Amino Transferase 36 U/L (15-37); Blood Urea Nitrogen 13.0 mg/dL (7.0-18.0); Calcium 9.9 mg/dL (8.5-10.1); Carbon Dioxide 24.8 mmol/L (21.0-32.0); Chloride 105 mmol/L (98-107); Estimated GFR (African America >60 (>=60 mL/min/1.73m^2); Estimated GFR (Non-African Ame >60 (>=60 mL/min/1.73m^2); Globulin 3.5 g/dL; Glucose 98 mg/dL (74-106); Potassium 4.1 mmol/L (3.5-5.1); Sodium 142 mmol/L (136-145); Total Protein 8.4 g/dL (6.4-8.2)
[2024-11-19 08:22] LABS: Lipase 26.0 U/L (16.0-77.0)
== END 2024-11-19 08:57 | disposition home or self-care (01) ==
PROVIDERS: Emergency Provider Emergency Medicine; PCP Student in an Organized Health Care Education/Training Program
DX: R11.2 Nausea with vomiting, unspecified (principal); F10.90 Alcohol use, unspecified, uncomplicated
CPT/HCPCS: 36415; 80053; 83690; 84703; 85025; 96361; 96374; 96375; 99284; J2405; J3490

== ENCOUNTER 2024-12-23 20:25 | Emergency (ER) | payer SELFPAY ==
--- OUTSIDE RECORDS SUMMARY | 2011-01-22 09:50 | XMS_ITS | Continuity of Care Document ---
Author Organization [facility] Address [address] [place] [address] Phone Care Team Providers Care Ornamental Metal Worker Name Role Phone Isai Vazquez Unavailable Unavailable [...] Providers Copied on Encounter PREVENTIVE COUNSELING, INDIV [facility], [address] [place], [place], [id number], [place] tel:[phone] [facility] Influenza VaccineNeed for prophylactic vaccination with combined diphtheria-te tanus-pertuss is (DTP) (DTaP) vaccineNeed for prophylactic vaccination and inoculation against other specified single bacterial disease 3-[address] Tenzin Reyes. [address] [place], [place], [id number] , [place]. tel:[phone] Family History Family Member Type Diagnosis Age At Onset No Information Immunizations Vaccine Date Status Comments Tdap administered Source: New Imm unization Record MCV4 (11-55 yrs) administered Source: New Immunization Record Flu (split) (3 yrs or older) administered Source: New Immunization Record Payers Payer name Insurance type Covered constitution party ID Authoriza tion(s) No Information Social [...]
--- OUTSIDE RECORDS SUMMARY | 2024-07-17 05:40 | XMS_ITS ---
Author Organization [facility] Address [address] [place] [address] Care Team Providers Care Stamp Presser Name Role Phone Sang Porter [facility] [phone] REASON FOR VISIT RIGHT THUMB PAIN Encounters Encounter Location Date Provider Diagnosis [facility] [address] [place] [address] [place] [address] 07/17/2024 Sang Porter Plan Of Treatment No Information Progress Notes * HEBERT SHAHIS KDOB:2000 (24 yo F)Acc No.[id number]:07/17/2024 Patient: LEYDI LOMBARDI Provider: Michael Porter MD :2000 A ge:23 Y S ex:Female Date:07/17/2024 Address:[address] [id number] Subjective: * Chief Complaints: * 1 . RIGHT THUMB PAIN. * Medical History: Objective: * Vitals: Assessment: Plan: * Treatment: Forms: * Images: * Electronic signature of Aaron Porter MD on 12/23/2024 at 08:31 PM EDT Sign off status: Pending * Provider: Michael Porter MD Date: 0 07/17/2024 Generated for Julio Cesar jacome/Zeny/Shayanitting on: 12/23/2024 08:31 PM EDT
--- OUTSIDE RECORDS SUMMARY | 2024-12-23 20:30 | XMS_ITS | Encounter Summary ---
Author Organization [facility] Address [address] [place] [address] Care Team Providers Care Supervisor Research [employer] Name Role Phone Bella Camara MD Primary Care Provider [phone] Morenita Corona Unavailable [phone] Baldomero Padilla MD Primary Care Provider [phone] Encounter Details Date Type Department Care Team (Late st Contact Info) Description 03/27/2023 Abstract [facility] [address] [facility] [address] [place] [id number] Grabiel Castellanos MD [address] [facility] [address] [place] [address] Social History Tobacco Use Types Packs/Day Years Used Date Smoking Tobacco: Every Day Cigarettes 0.3 10.7 Started: 04/12/2014 Smokeless Tobacco: Never Alcohol Use [...] How often do you attend chur or presybeterian services? Patient declined 10/14/2022 Do you belong to any clubs o r organizations such as zoroastrian groups, unions, fraternal or athletic groups, or [...] Recorded Patient Health Questionnaire-2 Score 2 03/02/2023 [facility] - Occupational [...] place to sleep or slept in a group home (including now)? No 10/14/2022 Comments Unknown Sex and Gender Information Value Date Recorded Sex Assigned at Not on file Legal Sex Female 7:17 PM EDT Gender Identity Not on file Sexual Orientation Not on file documented as of this encounter Plan of Treatment Not on file documented as of this encounter Visit Diagnoses Not on filedocumented in this encounter Care Teams Supervisor Research Shop Relationship Specialty Start Date End Date Bella Camara MD [address] [place] [address] PCP - General Family Medicine 09/04/22 01/06/24 Morenita Corona PA [address] [place] [address] PCP - Medical [place] [employer] 09/10/22 06/19/23 Baldomero Padilla MD [address] [place] [address] PCP - General Family Medicine 01/07/24 documented as of this encounter
--- OUTSIDE RECORDS SUMMARY | 2024-12-23 20:31 | XMS_ITS | Encounter Summary ---
Author Organization [facility] Address [address] [place] [address] Care Team Providers Care Dry House Worker Name Role Phone Bella Camara MD Primary Care Provider [phone] Morenita Corona Unavailable [phone] Baldomero Padilla MD Primary Care Provider [phone] Encounter Details Date Type Department Care Team (Late st Contact Info) Description 12/19/2022 Abstract [facility] [address] [place] [address] Tosha Underwood MD [address] [place] [address] Social History Tobacco Use Types Packs/Day Years Used Date Smoking Tobacco: Every Day Cigarettes 0.3 10.7 Started: 04/12/2014 Smokeless Tobacco: Never Tobacco Cessation:Ready [...] often do you attend chur ch or amish services? Patient declined 10/14/2022 Do you belong to any clubs o r organizations such as yazdanism groups, unions, fraOptiWi-fi or athletic groups, or school groups? No [...] and heating? Not hard at all 10/14/2022 [facility] - Occupational Stress [...] on filedocumented in this encounter Care Teams Dry House Worker Relationship Specialty Start Date End Date Bella Camara MD [address] [place] [address] PCP - General Family Medicine 09/04/22 01/06/24 Morenita Corona PA [address] [place] [address] PCP - Medical [place] [employer] 09/10/22 06/19/23 Baldomero Padilla MD [address] [place] [address] PCP - General Family Medicine 01/07/24 documented as of this encounter
--- OUTSIDE RECORDS SUMMARY | 2024-12-23 20:31 | XMS_ITS | Encounter Summary ---
Author Organization [facility] Address [address] [place] [address] Care Team Providers Care Electric Motor Fitter Name Role Phone Bella Camara MD Primary Care Provider [phone] Baldomero Padilla MD Primary Care Provider [phone] Encounter Details Date Type Department Care Team (Late st Contact Info) Description 07/21/2023 [facility] [address] [address] Jose Cason DO [address] [place] [address] Social History Tobacco Use Types Packs/Day Years [...] How often do you attend chur or muslim services? Patient declined 10/14/2022 Do you belong to any clubs o r organizations such as gnosticism groups, unions, fraternal or athletic groups, or [...] Recorded Patient Health Questionnaire-2 Score 2 03/02/2023 [facility] - [...] place to sleep or slept in a [place] facility (including now)? No 10/14/2022 Comments Unknown Sex and Gender Information Value Date Recorded Sex Assigned at Not on file Legal Sex Female 7:17 PM EDT Gender Identity Not on file Sexual Orientation Not on file documented as of this encounter Plan of Treatment Not on file documented as of this encounter Visit Diagnoses Not on filedocumented in this encounter Care Teams Electric Motor Fitter Relationship Specialty Start Date End Date Bella Camara MD [address] [place] [address] PCP - General Family Medicine 09/04/22 01/06/24 Baldomero Padilla MD [address] [place] [address] PCP - General Family Medicine 01/07/24 documented as of this encounter
--- OUTSIDE RECORDS SUMMARY | 2024-12-23 20:31 | XMS_ITS | Encounter Summary ---
Author Organization [facility] Address [address] [place] [address] Care Team Providers Care Review Assistant Name Role Phone Bella Camara MD Primary Care Provider [phone] Baldomero Padilla MD Primary Care Provider [phone] Encounter Details Date Type Department Care Team (Late st Contact Info) Description 07/02/[address] [facility] [address] [facility] [place] [address] Rajni Sharma, RN [address] [place], [place] Social History Tobacco Use Types Packs/Day [...] often do you attend chur ch or temple services? Patient declined 10/14/2022 Do you belong to any clubs o r organizations such as confucianism groups, unions, fraternal or athletic groups, or [...] Recorded Patient Health Questionnaire-2 Score 2 03/02/2023 [facility] - Occupational Stress Questionnaire Answer Date [...] on filedocumented in this encounter Care Teams Review Assistant Relationship Specialty Start Date End Date Bella Camara MD [address] [place] [address] PCP - General Family Medicine 09/04/22 01/06/24 Baldomero Padilla MD [address] [place] [address] PCP - General Family Medicine 01/07/24 documented as of this encounter
--- OUTSIDE RECORDS SUMMARY | 2024-12-23 20:31 | XMS_ITS | CCD ---
Author Organization [facility] Care Team Providers Care Teacher Name Role Phone MISC, DOCTOR Primary Care Unavailable SABA SOLO Admitting Unavailable SABA SOLO Attending Unavailable SABA SOLO Consulting Unavailable DO Phillip Tripp Primary Care Provider DO Taran Rea Emergency Provider DO Phillip Shaw Emergency Provider Unavai Bella Anders Primary Care Physician [phone] Bella Camara MD Primary Care Provider Morenita Page Unavailable ASHLIE CRANE Attending Unavailable ASHLIE CRANE Admitting Unavailable Michael Hannah Attending Unavailable Michael Hannah Attending Unavailable MD Miracle Padilla Primary Care Provider TREVON Hall Emergency Provider Bella Camara MD Primary Care Provider Miracle Padilla MD Primary Care Provider [phone] Usman Murillo MD Attending Provider [phone] Cuco Hall Attending Unavailable Miracle Padilla Primary Care Unavailable Cuco Hall Admitting Unavailable Usman Murillo Admitting Unavailable Usman Murillo Attending Unavailable MIRACLE PADILLA Attending Unavailable BELLA CAMARA Attending Unavailable MAME JIMÉNEZ Attending Unavailable MIRACLE PADILLA Attending Unavailable MIRACLE PADILLA Attending Unavailable MIRACLE PADILLA Attending Unavailable Unavailable Unavailable Unavailable Allergies Allergy Classification Reported Allergen(s) Allergy Type Date of Onset Reaction(s) Facility (4 sources) Penicillins Drug allergy (disorder) 4 Hives [facility] Repository (4 sources) Penicillin; Translations: [penicillin] Drug Allergy Hives [facility] (20 sources) cefdinir Drug Allergy 2 [facility] (20 sources) Penicillins Drug Allergy 1 Rash [facility] (1 source) No Known Medication Allergies; Translations: [No Known Medication Allergies] Propensity to adverse reactions (disorder) [facility] Repository (1 source) Penicillins Drug allergy (disorder) [address] [place] [address] Repository Medications Current Medications Medication Drug Class(es) [...] hydrochloride 150 mg extended release oral tablet (20 sources) Aminoketone Start: 08-10-2024 take 1 tablet [...] etodolac 500 mg extended release oral tablet (19 sources) Nonsteroidal Anti-inflammatory Drug Start: 09-15-2023 End: 08-10-2025 take 1 tablet by mouth once daily etodolac XL (Lodine XL) 500 MG 24 hr tablet Indications: Trochanteric bursitis of right hip , S/P lateral meniscus repair of right knee Take 1 tablet (500 mg) by mouth Daily 30 tablet 08/10/2024 08/10/2025 Active Etonogestrel (Nexplanon) 68 mg Implant (4 sources) Start: 02-29-2020 Etonogestrel (Nexplanon) 68 mg Implant Active 1 IMPLANT SUBDERMAL Once February 29, 2020 1:00am Start: 02-29-2020 Etonogestrel ( Nexplanon) 68 mg Implant Active 1 IMPLANT SUBDERMAL Once February 29, 2020 12:00am fluticasone propionate 0.05 mg/actuat metered dose nasal spray (7 sources) Corticosteroid Start: 08-19-2024 take 1-2 spray(s) nasal route once daily fluticasone (Flonase) 50 MCG/ACT nasal spray Indications: PND (post-nasal drip) Administer 1-2 sprays into each nostril Daily Shake gently. Before first use, prime pump. After use, clean tip and replace cap. 16 g 08/19/2024 Active meclizine hydrochloride 25 mg oral tablet (5 sources) Antiemetic Start: 08-28-2024 End: 08-28-2025 take [...] Q8H as needed for nausea and vomiting 15 April 12, 2022 1:00am Start: 04-08-2022 take 1 [...] daily 01 14May 10, 2017 1:00am May 14, 2017 1:00am [...] Start: 05-20-2023 take 5 tablets by mo [facility] once daily, then take 4 [...] Active rimegepant 75 mg disintegrating oral tablet (17 sources) Start: 10-04-2023 take 1 tablet by mouth every other day Rimegepant Sulfate (Nurtec) 75 MG tablet dispersible Indications: Acute migraine Take 1 tablet by mouth every [...] Start: 04-12-2022 take 1 tablet by shirlene twice daily as needed Sucralfate (Carafate) 1 gram tablet Active 1 GM PO Twice daily as needed for abdominal discomfort 10 April 13, 2022 12:39am topiramate 25 mg oral tablet (19 sources) Start: 10-04-2023 End: 08-10-2025 take 1 tablet by mouth at bedtime topiramate (Topamax) 25 MG tablet Indications: Atypical migraine Take 1 tablet (25 mg) by [...] Discontinued 1 CAP PO Q12H 10 July 20, 2017 12:00am July 25, 2017 [...] (Phenergan) 25 mg suppository Discontinued 25 MG DE Q4H as needed for nausea and vomiting [...] (4 sources) Start: 10-18-2017 End: 04-12-2018 take 46890 [IU] by mouth once daily Vitamin D3 Discontinued 48947 UNIT PO Daily October 18, 2017 12:00am April 12, 2018 3:35am Start: 10-18-2017 End: 04-12-2018 take 93139 [IU] by mouth once daily Vitamin D3 Discontinued 79991 UNIT PO Daily October 17, 2017 11:00pm [...] [Shortness of breath] Onset: 11-10-2022 Episodic Other nervous system disorders (2 sources) Paresthesia; Translations: [Paresthesia of skin] 11-23-2024 Episodic Other non-traumatic joint disorders (2 sources) Pain in right hip joint; Translations: [Pain in right hip] 05-19-2023 Episodic Other non-traumatic joint disorders (4 sources) Hip pain; Translations: [Pain in left hip] 11-23-2024 Episodic Other upper respiratory infections (17 sources) [...] [Suicidal ideations] 06-05-2018 Episodic Superficial injury; contusion (15 sources) Contusion of hand; Translations: [Contusion of right hand, initial encounter] Onset: 08-19-2024 Resolved: 08-19-2024 10-26-2021 Episodic Unclassified (1 source) Other low [...] Onset: 01-01-2023 Resolved: 05-26-2023 01-01-2023 Episodic Influenza (20 sources) Influenza; Translations: [Influenza due to Influenza A virus] Onset: 08-19-2024 Resolved: 08-19-2024 04-08-2022 Episodic Nonspecific chest pain (12 sources) Chest pain; Translations: [Chest pain, unspecified] Onset: 08-19-2024 Resolved: 08-19-2024 04-12-2022 Episodic Other complications of (14 sources) Complication of , childbirth and/or the puerperium; Translations: [Other specified related conditions, unspecified trimester] Onset: 08-19-2024 Resolved: 08-19-2024 09-03-2018 Episodic Other complications of (14 sources) Asymptomatic bacteriuria in ; Translations: [Asymptomatic [...] injuries and conditions due to external causes (13 sources) Injury of rotator cuff; Translations: [Unspecified injury of muscle(s) and tendon(s) of the rotator cuff of unspecified shoulder, initial encounter] Onset: 08-19-2024 Resolved: 08-19-2024 09-18-2019 Episodic Other lower respiratory disease (12 sources) Cough; Translations: [Acute cough] Onset: 01-01-2023 Resolved: 05-26-2023 01-01-2023 Episodic Other lower respiratory disease (17 sources) Cough; Translations: [Acute cough] Onset: 01-01-2023 Resolved: 05-26-2023 05-26-2023 Episodic Other non-traumatic joint disorders (17 sources) Pain in right knee; Translations: [Pain in joint, lower leg] Onset: 05-31-2023 08-20-2023 Episodic Other skin disorders (20 sources) Acne vulgaris; Translations: [Acne vulgaris] Onset: 02-01-2023 02-01-2023 Episodic Residual codes; unclassified (17 sources) History of arthroscopy of knee joint; Translations: [Other specified postprocedural states] Onset: 08-20-2023 08-20-2023 Episodic Spondylosis; intervertebral disc disorders; other back problems (20 sources) Sciatica; Translations: [Other specified dorsopathies, lumbosacral region] Onset: 09-09-2022 09-09-2022 Episodic Results Test Name Value Interpretation Reference Range Facility S. pyogenes DNA BARBI+probe No m (Unsp spec)on 08-19-2024 Interpretation and review of laboratory results Normal [facility] RESULT Negative Negative [facility] HCG ( test) Ql (U)o n 08-16-2024 Preg Test, Ur Negative Negative [facility] HCG ( test) Ql (U)o n 08-10-2024 Preg Test, Ur Negative Negative [facility] Urine Cultureon 07-03-2024 Bacteria identified Cx Nom (U) 50,000 colonies/ml mixed bacterial skin contaminants 2 Days PERFORMED BY: [place] [address] PATHOLOGIST [employer] RESEARCH TECHNICIAN DARIAN ZAMUDIO M.D. Normal [facility] Comment on above: Performed By: #### C UU #### [address] HEPATITIS B SURF AB QUANTon 05-25-2024 HEPATITIS B SURF AB QUANT 9.1 Abnormal Immunity>10 mIU/mL [facility] Comment on above: Status of Immunity A nti-HBs Level Inconsistent with Immunity 0.0 - 10.0 Consistent with Immunity >10.0 Interpretation and review of laboratory results Abnormal [facility] MEASLES/MUMPS/RUBELLA IMMUNI TYon 05-25-2024 MEASLES ANTIBODIES, IGG >300.0 Immu ne >16.4 AU/mL [facility] Comment on above: Negative <13.5 Equivocal 13.5 - 16.4 Positive >16.4 Presence of antibodies to Rubeola is presumptive evidence of immunity except when acute infection is suspected. MUMPS ABS, IGG 69.4 AU/mL Immune >10.9 [facility] Comment on above: Negative <9.0 Equivocal 9.0 - 10.9 Positive >10.9 A positive result generally indicates past exposure to Mumps virus or previous vaccination. Performed at: [address] [id number] Groundhand: Nikita Humphries PhD, Phone: [phone] RUBELLA ANTIBODIES, IGG 2.80 Immu ne >0.99 index [facility] Comment on above: Non-immune <0.90 Equivocal 0.90 - 0.99 Immune >0.99 No Panel Informationon 05-25 [facility] VARICELLA-ZOSTER V AB, IGGon 05-25-2024 VARICELLA-ZOSTER V AB, IGG Non-Reactive Non Reactive [facility] Comment on above: Please note refere nce interval change A Reactive result is considered evidence of immunity to VZV. Reactive indicates that VZV IgG was detected consistent with previous infection and/or vaccination. A Non Reactive result indicates that VZV IgG was not detected suggesting that immunity has not been acquired. Performed at: [address] [id number] Groundhand: Nikita Humphries PhD, Phone: [phone] XR Chest 2 Viewson 4 XR Chest [...] Signature): 10/07/2023 7:43 pm Signed by: Pj Mdeina Transcribed by: RYAN Technologist: CALEB Technical Comments Radiation Dose: Ka,r in mGy = . DAP = . Normal [facility] Consent for Treatmenton 05-13 Consent for Treatment [id number] .00TIFF Normal [facility] Discharge Instructionson Discharge Instructions [id number]# 1.00TIFF Normal [facility] ED Clinical Summaryon 2023 ED Clinical Summary [place] [id number] ED Clinical Summary Person Information Name: MAURY COLLAZO [facility] Age: 22 Years : 2000 Sex: Female Language: [place] Rican PCP: Bella Camara MD Marital Status: [...] 05/27/2023 13:04:43 05/27/2023 13:04:43 05/27/2023 13:04:43 ADDRESS: [facility] [address] [facility] [id number] [facility] DOC NOTES: MEDICAL INFORMATION: Prescriptions Given: Medications to Continue with No Changes Other Medications promethazine (promethazine 25 mg Tab) 1 Tablets By Mouth every 6 hours as needed as needed for nausea/vomiting. Refills: 0. PATIENT EDUCATION INFORMATION: Instructions: Knee Sprain, Adult Follow up: With: Address: When: [address] [place], [place] [id number] Business (1) In 3 days 05/30/2023 DIAGNOSIS: Knee sprain Normal [facility] ED Noteon 05-27-2023 ED Note [id number]# 1.00TIFF Normal [facility] ED Note-Physicianana luisa 05-27-19 ED Note-Physician Basic Information Time Seen: Jazzy NINAPola 05/27/2023 11:22 Chief Complaint pt reports R [...] Chavez In 3 days 05/30/2023 EST [address] [place] [place] [address]Group Phoebe [employer] [facility] (1) Additional Instructions: Patient Education Knee Sprain, [...] made to ensure accuracy, however, inadvertently computerized farm instructor mistakes may be present. Appropriate healthcare PPE [...] = na Signed By: Kalin Goldberg MD [facility] Comment on above: Result Comment: Elec [...] or lying down. General instructions ? Take sdvc-mji-acafexw and prescription medicines only as told by [...] Reviewed: 02/16/2020 Elsevier Patient Education ? 2022 FileHold Document Management software. Normal [facility] ED Patient Summaryon 024 ED Patient Summary [address] [address] Patient Discharge Instructions Person Information Name: MAURY COLLAZO Age: 22 Years Arrival Date: 05/27/2023 11:15:44 Discharge Diagnosis: Knee sprain Primary Care Physician: Bella Camara MD Provider Information Primary Provider: Michael Hannah M.D. Advanced Perinatal Director:Pola Purcell PA-C The exam and treatment you received in the Emergency Department were for an urgent problem and are not intended as complete care. It is important that you follow up with a doctor, nurse practitioner, or physician?s assistant attorney general for ongoing care. If your symptoms become worse or you do not improve as expected and you are unable to reach your usual health care provider, you should return to the Emergency Department. We are available 24 hours a day. MAURY COLLAZO has been given the following list of patient education materials, prescriptions and follow-up instructions: Follow-up Instructions: With: Address: When: Russell Chavez [address] [place] [id number] [facility] (1) In 3 days 05/30/2023 In the event that this physician does not participate in your insurance network, please consult with your insurance company to find a nearby participating provider. Patient Education Materials: Knee Sprain, Adult A MESSAGE TO ALL PATIENTS REGARDING OPIOIDS PRESCRIPTION OPIOIDS: WHAT YOU NEED TO KNOW Prescription opioids can be used to help relieve zehqlhsk-ej-gqvojo pain and are often prescribed following a [...] be struggling with addiction, tell your health patient care specialist and ask for guidance or call [facility]?S National Helpline at 0-897-375-CZUO. w Source: [employer] Department of Health (more content not included)... Normal [facility] XR Knee Complete 4+ Views Ri tano 05-27-2023 XR Knee Complete 4+ Views [...] fracture or bony tumor seen. [facility] Radiology Study observation (narrative) [facility] XR Lumbar spine 4 [facility] Result: AP lateral and oblique of the lumbar spine taken in the office which he end demonstrates no change in her thoracolumbar scoliosis she does have noted Schmorl nodes multiple discs and developing some early facet hypertrophy in the lumbar spine [facility] Radiology Study observation (narrative) [facility] XR Chest Single Viewon 11-11 XR Chest [...] WBC (Bld) 0.5 % Normal 0.0-2.0 F [facility] Comment on above: Order Comment: Order Added by Discern Expert. Performed By: #### 2 766448, 1520025, 71830719, 0721532, 3996460, 08671527, 5810583, 6050926 ####[facility] [address] [place] [address] Basophils/Leukocytes Auto (Bld) [Pure # fraction] 0.0 E9/L Normal 0.0-0.2 [facility] Comment on above: Order Comment: Order Added by Discern Expert. Performed By: #### 2 935045, 8722052, 43022303, 1286297, 6509402, 05737132, 1982571, 5084291 ####[facility] [address] [place] [address] Eosinophils/100 WBC (Bld) 1.0 % Normal 0.0-8.0 [facility] Comment on above: Order Comment: Order Added by Discern Expert. Performed By: #### 2 929659, 3988101, 50346244, 6900819, 8847159, 91053661, 4628720, 5202528 ####[facility] [address] [place] [address] Eosinophils/Leukocytes Auto (Bld) [Pure # fraction] 0.1 E9/L Normal 0.0-0.5 [facility] Comment on above: Order Comment: Order Added by Discern Expert. Performed By: #### 2 467381, 8229524, 28577021, 7186322, 6126733, 39593198, 9129966, 8321306 ####[facility] [address] [place] [address] Lymphocytes/100 WBC (Bld) 26.5 % Normal 14.0-50.0 [facility] Comment on above: Order Comment: Order Added by Discern Expert. Performed By: #### 2 641667, 5265838, 12682555, 2525645, 3109455, 03631830, 5267524, 9602863 ####[place] [address] [place] [address] Lymphocytes/Leukocytes Auto (Bld) [Pure # fraction] 2.3 E9/L Normal 1.0-4.0 [facility] Comment on above: Order Comment: Order Added by Discern Expert. Performed By: #### 2 973081, 1121091, 30582107, 9109838, 7379214, 15109102, 2738780, 7134073 ####[place] [address] [place] [address] Monocytes/100 WBC (Bld) 5.2 % Normal 4.0-14.0 [facility] Comment on above: Order Comment: Order Added by Discern Expert. Performed By: #### 2 327163, 7794372, 88616963, 2559258, 0739981, 49058270, 5790704, 3791096 ####[place] [address] [place] [address] Monocytes/Leukocytes Auto (Bld) [Pure # fraction] 0.4 E9/L Normal 0.2-1.0 [facility] Comment on above: Order Comment: Order Added by Discern Expert. Performed By: #### 2 204201, 1216220, 14077730, 8885313, 3963254, 55479000, 8757720, 8284059 ####[facility] [address] [place] [address] Neutrophils/100 WBC (Bld) 66.8 % Normal 36.0-75.0 [facility] Comment on above: Order Comment: Order Added by Discern Expert. Performed By: #### 2 597572, 1943366, 77351052, 3696210, 7818880, 24254271, 0600825, 0569845 ####[facility] [address] [place] [address] Neutrophils/Leukocytes Auto (Bld) [Pure # fraction] 5.7 E9/L Normal 2.0-7.5 [facility] Comment on above: Order Comment: Order Added by Discern Expert. Performed By: #### 2 164842, 7611151, 19692336, 0954786, 9192210, 45093621, 9946259, 8722290 ####[facility] [address] [place] [address] BMP 11-10-2022 Creatinine [Mass/Vol] 0.8 mg/dL Normal 0.5-1.3 [facility] Comment on above: Performed By: #### 2 216080, 5706432, 88318806, 1678927, 2413385, 61514958, 7390116, 8005716 ####[facility] [address] [place] [address] Urea nitrogen [Mass/Vol] 13 mg/dL Normal 5-21 [facility] Comment on above: Performed By: #### 2 615708, 6494314, 10526287, 3426051, 7152654, 50002515, 8764379, 1423633 ####[facility] [address] [place] [address] Urea nitrogen/Creatinine [Mass ratio] 16 No Units Normal 10-20 [facility] Comment on above: Performed By: #### 2 957042, 6339823, 33040408, 9007712, 4777242, 64106437, 2191402, 7744188 ####[facility] [address] [place] [address] Anion gap [Moles/Vol] 13 mmol/L Normal 6-16 [facility] Comment on above: Performed By: #### 2 769352, 8101489, 56361821, 4600781, 6635905, 28889015, 2032664, 2309528 ####[facility] [address] [place] [address] Calcium [Mass/Vol] 9.7 mg/dL Normal 8.9-11.1 [facility] Comment on above: Performed By: #### 2 961143, 4412830, 24747023, 4207834, 8096313, 89336998, 4037022, 3639139 ####[facility] [address] [place] [address] Chloride [Moles/Vol] 105 mmol/L Normal 101-111 [facility] Comment on above: Performed By: #### 2 922652, 4940386, 28028644, 2704482, 2795283, 68011308, 1770500, 2610926 ####[facility] [address] [place] [address] CO2 [Moles/Vol] 24 mmol/L Normal 21-31 [facility] Comment on above: Performed By: #### 2 753578, 4740043, 02358073, 8418012, 6087520, 82266878, 6641925, 7434518 ####[facility] [address] [place] [address] Glucose [Mass/Vol] 96 mg/dL Normal 55-199 [facility] Comment on above: Result Comment: If t his glucose result represents a fasting glucose, interpretation should refer to the following reference range: 55-99 mg/dL Performed By: #### 2 544004, 6505957, 79517947, 5028904, 9081299, 52513088, 1444542, 8835482 ####[facility] [address] [place] [address] Potassium [Moles/Vol] 3.8 mmol/L Normal 3.5-5.3 [facility] Comment on above: Performed By: #### 2 841619, 8142695, 69321177, 2524894, 1332867, 86779111, 3834766, 1672585 ####[facility] [address] [place] [address] Sodium [Moles/Vol] 138 mmol/L Normal 135-145 [facility] Comment on above: Performed By: #### 2 995410, 6847571, 24159115, 4976823, 7023583, 39065950, 4022709, 1007886 ####[facility] [address] [place] [address] CBC w/ Auto Diffon Erythrocyte distribution width (RBC) [Ratio] 13.5 % Normal 10.9-14.2 [facility] Comment on above: Performed By: #### 2 699069, 7003747, 34740548, 6498787, 7095013, 98303347, 2749199, 0150261 ####[place] [address] [place] [address] Hematocrit (Bld) [Volume fraction] 40.4 % Normal 34.0-46.0 [facility] Comment on above: Performed By: #### 2 040853, 8289031, 33363450, 2611091, 8619843, 96928385, 7980989, 4721951 ####[facility] [address] [place] [address] Hemoglobin (Bld) [Mass/Vol] 13.7 g/dL Normal 12.0-16.0 [facility] Comment on above: Performed By: #### 2 920400, 3135319, 17311404, 9273064, 0076347, 01195079, 5474644, 6534117 ####[facility] [address] [place] [address] MCH (RBC) [Entitic mass] 30.0 pg Normal 27.0-34.0 [facility] Comment on above: Performed By: #### 2 144707, 3257605, 93030240, 7418959, 2110258, 61520757, 0911775, 0326153 ####[facility] [address] [place] [address] MCHC (RBC) [Mass/Vol] 33.9 g/dL Normal 31.4-36.0 [facility] Comment on above: Performed By: #### 2 176474, 3928316, 98345288, 8909517, 8174988, 70582820, 5650137, 9402428 ####[place] [place] [address] MCV (RBC) [Entitic vol] 88.6 fL Normal 80.0-100.0 F [facility] Comment on above: Performed By: #### 2 597647, 9193731, 80555244, 4495908, 3608996, 13801171, 8738845, 5123760 ####[address] [address] Platelet mean volume (Bld) [Entitic vol] 10.8 fL Normal 6.4-10.8 [facility] Comment on above: Performed By: #### 2 687929, 7155581, 02149818, 9289065, 3953195, 18447399, 4754689, 9546953 ####[address] [address] Platelets (Bld) [#/Vol] 192.0 E9/L Normal 150.0-500.0 [facility] Comment on above: Performed By: #### 2 480352, 9577212, 06467444, 7099713, 2809526, 64323119, 1719979, 0377001 ####[facility] [address] [place] [address] RBC (Bld) [#/Vol] 4.6 E12/L Normal 4.3-5.9 [facility] Comment on above: Performed By: #### 2 992016, 9127982, 38877992, 1034756, 9356827, 64578042, 7734206, 4923974 ####[facility] [address] [place] [address] WBC corrected for nucl RBC Auto (Bld) [#/Vol] 8.5 E9/L Normal 4.0-11.0 [facility] Comment on above: Result Comment: Slid e reviewed by FREDRICK. Performed By: #### 2 411453, 3454739, 19915932, 7600451, 3908976, 36946944, 5734957, 3955564 ####[facility] [address] [place] [address] CHEMISTRYOrdered By: SYSTEM SYSTEM on 11-10-2022 Albumin [...] 24 mmol/L Normal 21 - 31 mmol/L FT Remisol Creatinine [Mass/Vol] 0.8 mg/dL Normal 0.5 - 1.3 mg/dL [facility] Remisol GFR/1.73 sq M.predicted among non-blacks MDRD (S/P/Bld) [Vol rate/Area] 105 mL/min/1.73 m2 Normal >=59mL/min/1 .73 m2 [facility] Chem S Globulin (S) [Mass/Vol] 3.1 g/dL Normal 1.4 - 4.0 gm/dL [facility] Glucose [Mass/Vol] 96 mg/dL Normal 55 - 199 mg/dL [facility] Remisol Lipase [Catalytic activity/Vol] 28 U/L Normal 13 - 58 unit/L [facility] Remisol Potassium [Moles/Vol] 3.8 mmol/L Normal 3.5 - 5.3 mmol/L [facility] Remisol Protein [Mass/Vol] 7.7 g/dL Normal 6.0 - 7.8 gm/dL [facility] Remisol Sodium [Moles/Vol] 138 mmol/L Normal 135 - 145 mmol/L [facility] Remisol Troponin I.cardiac [Mass/Vol] pg/mL Low 10.10 - 27.10 pg/mL [facility] Remisol Urea nitrogen [Mass/Vol] 13 mg/dL Normal 5 - 21 mg/dL [facility] Remisol Urea nitrogen/Creatinine [Mass ratio] 16 mg/mg Normal 10 - 20 [facility] Remisol COAGULATIONOrdered By: Aaron Wren on 11-10-2022 Fibrin D-dimer FEU (PPP) [Mass/Vol] ng/mL FEU Low 215 - 500 ng/mL FEU [facility] Auto Coag Consent for Treatmenton Consent for Treatment [id number] Normal [facility] D-Dimeron 11-10-2022 Fibrin [...] infections Liver cirrhosis Performed By: #### 2 952143, 0763587, 17724392, 3270298, 9863259, 59252379, 2632525, 9863759 ####[facility] [address] [place] [address] Discharge Instructionson Discharge Instructions [id number]# 1.00CD:127 Normal [facility] ED Clinical Summaryon 2022 ED Clinical Summary [address] [address] ED Clinical Summary Person Information Name: MAURY COLLAZO [facility] Age: 22 Years : 2000 Sex: Female Language: Costa Rican PCP: Bella Camara MD Marital Status: [...] 19:05:26 11/10/2022 19:05:26 11/10/2022 19:05:26 ADDRESS: [id number] [id number] [facility] DOC NOTES: MEDICAL INFORMATION: Prescriptions Given: [...] With: Address: When: Bella [place] [address] Polyheal (1) In 3 days 11/13/2022 Comments: Retrurn [...] and Complexity of Problems Differential Diagnosis: [] [facility] Data External documents reviewed: [] [...] these instructions at home: Medicines ? Take yymp-bnz-ginsslh and prescription medicines only as told by [...] your condition for any changes. ? Take uyle-tzi-ulctbtn and prescription medicines only as told by [...] provider. Document Revised: 05/17/2020 Document Reviewed: 08/07/2019 [employer] Patient Education ? 2022 [employer] Pulmonary Medicine Shortness of Breath, Adult [...] any changes in your symptoms. ? Take fcxs-zva-ppydtcl and prescription medicines only as told by [...] ED Patient Summaryon 023 ED Patient Summary [address] [address] Patient Discharge Instructions Person Information Name: MAURY COLLAZO Age: 22 Years Arrival Date: 11/10/2022 15:56:06 Discharge Diagnosis: 1:Abdominal pain; 2:Shortness of breath Primary Care Physician: Hoa JASSO, Bella Shaw Provider Information Primary Provider: Brielle Varma, Michael Panchal Advanced Perinatal Director:None The exam and treatment you received in the Emergency Department were for an urgent problem and are not intended as complete care. It is important that you follow up with a doctor, nurse practitioner, or physician?s assistant attorney general for ongoing care. If your symptoms become [...] Instructions: With: Address: When: Bella Cam[place] [address] [facility] (1) In 3 days 11/13/2022 Comments: [...] opioids can be used to help relieve chukhepj-mg-fmjhmn pain and are often prescribed following a [...] 30.0 pg Normal 27.0 - 34.0 pg FT HemeAutoSS MCHC (RBC) [Mass/Vol] 33.9 g/dL Normal 31.4 - 36.0 gm/dL FT HemeAutoSS MCV (RBC) [Entitic vol] 88.6 fL Normal 80.0 - 100.0 fL FT HemeAutoSS Platelet mean volume (Bld) [Entitic vol] [...] above: Result Comment: Slid e reviewed by [facility] Panelon 11-10-2022 Bilirubin.indirect [Mass or moles/Vol] UTC Abnormal 0.1-0.9 [facility] Comment on above: Result Comment: Resu lt verified by Discern Rule. Performed result UTC (Unable to Calculate) was sent as an Alpha code due the inability to calculate a valid numeric value. Performed By: #### 2 534995, 7875375, 61136618, 8742446, 9782026, 30249030, 7556839, 7599276 ####[facility] [address] [place] [address] Albumin [Mass/Vol] 4.6 g/dL Normal 3.3-5.0 [facility] Comment on above: Performed By: #### 2 331647, 0613772, 85169692, 1230180, 8216178, 47813246, 5588362, 2176248 ####[facility] [address] [place] [address] Albumin/Globulin (S) [Mass conc ratio] 1.5 Normal 1.1-2.2 [facility] Comment on above: Performed By: #### 2 618701, 9556689, 02648103, 2494904, 7189173, 12171202, 4657318, 6346147 ####[facility] [address] [place] [address] ALP [Catalytic activity/Vol] 41 Int._Unit/L Normal 21-98 [facility] Comment on above: Performed By: #### 2 667133, 9794268, 40263793, 2566296, 4553083, 26063601, 5292341, 9798056 ####[facility] [address] [place] [address] ALT No additional P-5'-P [Catalytic activity/Vol] 17 Int._Unit/L Normal 6-46 [facility] Comment on above: Performed By: #### 2 093393, 3683295, 38508276, 3000856, 3954581, 37351532, 0607070, 2853397 ####[place] [place] [address] AST [Catalytic activity/Vol] 17 Int._Unit/L Normal 5-43 [facility] Comment on above: Performed By: #### 2 960061, 3354077, 38280161, 5009769, 6270910, 90918197, 8028254, 5917867 ####[facility] [address] [place] [address] Bilirubin [Mass/Vol] 0.5 mg/dL Normal 0.0-1.1 [facility] Comment on above: Performed By: #### 2 910675, 5938689, 09058267, 8572938, 9280893, 70192640, 6726076, 2854995 ####[address] [place] [address] Globulin (S) [Mass/Vol] 3.1 g/dL Normal 1.4-4.0 F [facility] Comment on above: Performed By: #### 2 188227, 7194721, 07067996, 8070246, 0963765, 22555917, 8236400, 1889903 ####[facility] [address] [place] [address] Protein [Mass/Vol] 7.7 g/dL Normal 6.0-7.8 [facility] Comment on above: Performed By: #### 2 753311, 4889879, 11402203, 9488280, 1522161, 09441938, 5117970, 7934016 ####[facility] [address] [place] [address] Bilirubin.direct [Mass/Vol] mg/dL Normal 0.1-0.4 [facility] Comment on above: Performed By: #### 2 077615, 3506282, 56263851, 1956084, 4697459, 81016718, 2445247, 7064952 ####[facility] [address] [place] [address] Lipase Levelon 11-10-2022 Lipase [Catalytic activity/Vol] 28 U/L Normal 13-58 [facility] Comment on above: Performed By: #### 2 131743, 0708497, 93003380, 9854282, 4909334, 97461760, 5410954, 8024275 ####[facility] [address] [place] [address] Progress Note-Nurseon 2022 Progress Note-Nurse Patient brought back to ED 11 at this time from the waiting room Normal [facility] SEROLOGYOrdered By: Brittni choudhury on 11-10-2022 HCG.beta subunit (U) [Moles/Vol] Negative Normal [facility] Man Sero Troponin 0 Hr.on 11-10-2022 Troponin I.cardiac [Mass/Vol] ng/mL Low 10.10-27.10 [facility] Comment on above: Result Comment: The 95% CI (Confidence Interval) PPV (Positive Predictive Value) for myocardial infarction in females is 38 pg/mL, in males 51 pg/mL. The results should be used in conjunction with clinical conditions of myocardial infarction. (Access High Sensitivity Troponin I Instructions For Use, Richelle Millington, November 2017) Performed By: #### 2 691531, 3220110, 47112470, 1344946, 9157217, 42719959, 7440719, 6977998 ####[facility] [address] [place] [address] U BetaHcg Qualon 11-10-2022 HCG.beta subunit (U) [Moles/Vol] Negative Normal [facility] Comment on above: Performed By: #### 2 4489907 ####[facility] [address] [place] [address] UA With Cult Reflexon 2022 Bilirubin Ql (U) Negative Normal Negative [facility] Comment on above: Performed By: #### 1 3227450 ####[facility] [address] [place] [address] Clarity (U) CLEAR Normal Clear [facility] Comment on above: Performed By: #### 1 0345636 ####[address] [address] Color (U) YELLOW Normal Yellow [facility] Comment on above: Performed By: #### 1 2200117 ####[facility] [address] [place] [address] Epithelial cells.squamous LM.HPF (Urine sed) [#/Area] 0-2 Normal 0-2 [facility] Comment on above: Performed By: #### 1 8659692 ####[facility] [address] [place] [address] Glucose Test strip (U) [Mass/Vol] Negative Normal Negative [facility] Comment on above: Performed By: #### 1 9767884 ####[facility] [address] [place] [address] Hemoglobin Ql (U) Negative Normal Negative [facility] Comment on above: Performed By: #### 1 2877041 ####[facility] [address] [place] [address] Ketones (U) [Mass/Vol] Negative Normal Negative [facility] Comment on above: Performed By: #### 1 8642223 ####[facility] [address] [place] [address] Iona.plasma/Iona. RBC (Bld) [Mass ratio] 0-3 Normal 0-3 [facility] Comment on above: Performed By: #### 1 4244122 ####[address] [address] Nitrite Ql (U) Negative Normal Negative [facility] Comment on above: Performed By: #### 1 5175731 ####[address] [address] pH (U) 6.0 [pH] Invalid Interpretation Code 5.0-9.0 [facility] Comment on above: Performed By: #### 1 6755031 ####[address] [address] Protein (U) [Mass/Vol] Negative Normal Negative [facility] Comment on above: Performed By: #### 1 5970280 ####[place] [address] Specific gravity (U) [Rel density] 1.010 Invalid Interpretation Code 1.005-1.030 [facility] Comment on above: Performed By: #### 1 1094850 ####[place] [address] Type of Urine collection method Clean Catch Normal [facility] Comment on above: Performed By: #### 1 8316619 ####[address] [address] Urobilinogen Qn (U) 0.2 {Elizabeth'U}/dL Normal 0.0-1.0 [facility] Comment on above: Performed By: #### 1 3941224 ####[address] [address] WBC Auto Ql (U) Negative Normal Negative [facility] Comment on above: Performed By: #### 1 0951554 ####[address] [address] WBC LM.HPF (Urine sed) [#/Area] 0-5 Normal 0-5 [facility] Comment on above: Performed By: #### 1 5635033 ####[facility] [address] [place] [address] URINALYSISOrdered By: Brittni Wren on 11-10-2022 Bilirubin [...] PM) Normal Negative [facility] UA Auto SS Iona.plasma/Iona. RBC (Bld) [Mass ratio] 0-3 /HPF Normal [...] [facility] UA Auto SS Urobilinogen Qn (U) 0.9287861 {Elizabeth'U}/dL Normal 0.0 - 1.0 EU/dL [facility] UA Auto SS WBC Auto Ql (U) Negative (11/10/22 5:44 PM) Normal Negative [facility] UA Auto SS WBC LM.HPF (Urine sed) [#/Area] 0-5 /HPF Normal 0-5/HPF [facility] UA Auto SS eGFRon 11-10-2022 GFR/1.73 sq M.predicted among non-blacks MDRD (S/P/Bld) [Vol rate/Area] 105 mL/min/1.73 m2 Normal >=59 [facility] Comment on above: Order Comment: Order added by Discern Expert. Result Comment: Foundation Stage Teacher crystal kidney disease could be indicated at eGFR's of less than 60 mL/min/1.73m2. Kidney failure is indicated at less than 15 mL/min/1.73m2. Performed By: #### 2 881298, 0452654, 71728579, 9628004, 6955977, 89280532, 8821408, 2412586 ####[facility] [address] [place] [address] Basophils Auto (Bld) [#/Vol] Ordered By: Phillip Shaw on 04-12-2022 Basophils (Bld) [#/Vol] 0.0 10*3/uL 0.0-0.2 [facility] Basophils/100 WBC Auto (Bld) Ordered By: Phillip Shaw on 04-12-2022 Basophils/100 WBC (Bld) 0.4 % . [facility] Creatinine and Glomerular fi ltration rate.predicted panel (S/P/Bld)Ordered By: Phillip Shaw on 04-12-2022 Creatinine [Mass/Vol] 0.72 mg/dL 0.44-1.03 [facility] Eosinophils Auto (Bld) [#/Vo l]Ordered By: Phillip Shaw on 04-12-2022 Eosinophils (Bld) [#/Vol] 0.0 10*3/uL 0.0-0.45 [facility] Eosinophils/100 WBC Auto (Bl d)Ordered By: Phillip Shaw on 04-12-2022 Eosinophils/100 WBC (Bld) 0.1 % . [facility] Erythrocyte distribution wid th Auto (RBC) [Ratio]Ordered By: Phillip Shaw on 04-12-2022 Erythrocyte distribution width (RBC) [Ratio] 15.1 % 11.9-15.3 [facility] Estimated glomerular filtrat ion rate (GFR) non- AmericanOrdered By: Phillip Shaw on 04-12-2022 GFR/1.73 sq M.predicted among non-blacks MDRD (S/P/Bld) [Vol rate/Area] > 60 mL/Min [facility] Hematocrit Auto (Bld) [Volum e fraction]Ordered By: Phillip Shaw on 04-12-2022 Hematocrit (Bld) [Volume fraction] 37.6 % 34.0-46.4 [facility] Hemoglobin [Mass/volume] in BloodOrdered By: Phillip Shaw on 04-12-2022 Hemoglobin (Bld) [Mass/Vol] 12.4 g/dL 11.8-15.4 [facility] Laboratory - Chemistry and C hemistry - challengeOrdered By: Phillip Shaw on 04-12-2022 Natriuretic peptide B (Bld) [Mass/Vol] 34.0 pg/mL 5-100 [facility] Leukocytes [#/volume] correc chalri for nucleated erythrocytes in Blood by Automated counOrdered By: Phillip Shaw on 04-12-2022 WBC corrected for nucl RBC Auto (Bld) [#/Vol] 11.1 10*3/uL 3.8-11.6 [facility] Lymphocytes Auto (Bld) [#/Vo l]Ordered By: Phillip Shaw on 04-12-2022 Lymphocytes (Bld) [#/Vol] 1.0 10*3/uL 1.00-4.8 [facility] Lymphocytes/100 WBC Auto (Bl d)Ordered By: Phillip Shaw on 04-12-2022 Lymphocytes/100 WBC (Bld) 9.1 % . [facility] MCH Auto (RBC) [Entitic mass ]Ordered By: Phillip Shaw on 04-12-2022 MCH (RBC) [Entitic mass] 28.8 pg 24.7-34.3 [facility] MCHC Auto (RBC) [Mass/Vol]Or dered By: Phillip Shaw on 04-12-2022 MCHC (RBC) [Mass/Vol] 32.9 g/dL 32.0-35.0 [facility] MCV Auto (RBC) [Entitic vol] Ordered By: Phillip Shaw on 04-12-2022 MCV (RBC) [Entitic vol] 87.5 fL 80-100 [facility] Monocyte distribution width [Entitic volume] in Blood by AutomatedOrdered By: Phillip Shaw on 04-12-2022 Monocyte distribution width Auto (Bld) [Entitic vol] 22.31 % 0.00-20.00 [facility] Comment on above: For adults in ED, MD W > 20.0 may be associated with a higher risk of sepsis during the first 12 hrs of hospital admission Monocytes Auto (Bld) [#/Vol] Ordered By: Phillip Shaw on 04-12-2022 Monocytes (Bld) [#/Vol] 1.1 10*3/uL 0.0-0.8 [facility] Monocytes/100 WBC Auto (Bld) Ordered By: Phillip Shaw on 04-12-2022 Monocytes/100 WBC (Bld) 10.3 % . [facility] Neutrophils Auto (Bld) [#/Vo l]Ordered By: Phillip Shaw on 04-12-2022 Neutrophils (Bld) [#/Vol] 8.9 10*3/uL 1.8-7.7 [facility] Neutrophils/100 WBC Auto (Bl d)Ordered By: Phillip Shaw on 04-12-2022 Neutrophils/100 WBC (Bld) 80.1 % . [facility] No Panel InformationOrdered By: Phillip Shaw on 04-12-2022 D-Dimer Quantitative (PE/DVT) < 200 ng/mL 0-243 [facility] Comment on above: The reference range [...] conditions. Estimated GFR () > 60 mL/Min [facility] Comment on above: GFR estimated refere nce range: According to KDOQI guidelines, <60 ml/min/1.73m2 is sufficient to diagnose a patient with chronic kidney disease. Pharmacy Creatinine Clearance (Chem 117.02 [facility] Nucleated erythrocytes [Pres ence] in Blood by Automated countOrdered By: Phillip Shaw on 04-12-2022 Nucleated RBC Auto Ql (Bld) 0.1 /100{WBC} 0-0.5 [facility] Platelet mean volume Auto (B ld) [Entitic vol]Ordered By: Phillip Shaw on 04-12-2022 Platelet mean volume (Bld) [Entitic vol] 11.4 fL 6.3-10.7 [facility] Platelets Auto (Bld) [#/Vol] Ordered By: Phillip Shaw on 04-12-2022 Platelets (Bld) [#/Vol] 181 10*3/uL 150-450 [facility] RBC Auto (Bld) [#/Vol]Ordere d By: Phillip Shaw on 04-12-2022 RBC (Bld) [#/Vol] 4.30 10*6/uL 3.60-5.00 [facility] Serum or plasma anion gap de terminationOrdered By: Phillip Shaw on 04-12-2022 Anion gap [Moles/Vol] 13.1 mmol/L 6.0-15.0 [facility] Serum or plasma calcium oliver urement (mass/volume)Ordered By: Phillip Shaw on 04-12-2022 Calcium [Mass/Vol] 8.9 mg/dL 8.2-10.2 [facility] Serum or plasma chloride jeanne surement (moles/volume)Ordered By: Phillip Shaw on 04-12-2022 Chloride [Moles/Vol] 101 mmol/L 95-114 [facility] Serum or plasma glucose oliver urement (mass/volume)Ordered By: Phillip Shaw on 04-12-2022 Glucose [Mass/Vol] 108 mg/dL 70-100 [facility] Comment on above: ADA recommended refe rence rangeRandom Glucose Reference Range is dependent on time and content of last meal. Glucose of more than 200 mg/dL in a nonstressed, ambulatory subject supports the diagnosis of Diabetes Mellitus. Serum or plasma potassium me asurement (moles/volume)Ordered By: Phillip Shaw on 04-12-2022 Potassium [Moles/Vol] 3.8 mmol/L 3.5-5.1 [facility] Serum or plasma sodium measu rement (moles/volume)Ordered By: Phillip Shaw on 04-12-2022 Sodium [Moles/Vol] 133 mmol/L 136-146 [facility] Serum or plasma total carbon dioxide measurement (moles/volume)Ordered By: Phillip Shaw on 04-12-2022 CO2 [Moles/Vol] 22.7 mmol/L 22.0-30.0 [facility] Serum or plasma urea nitroge n measurement (mass/volume)Ordered By: Phillip Shaw on 04-12-2022 Urea nitrogen [Mass/Vol] 7 mg/dL 9-23 [facility] Troponin I.cardiac [Mass/vol ume] in Serum or Plasma by High sensitivity methodOrdered By: Phillip Shaw on 04-12-2022 Troponin I.cardiac High sensitivity method [Mass/Vol] 5 pg/mL 0-15 [facility] WBC Auto (Bld) [#/Vol]Ordere d By: Phillip Shaw on 04-12-2022 WBC (Bld) [#/Vol] 11.1 10*3/uL 3.8-11.6 [facility] COVID CepheidOrdered By: Twyla Rea on 04-07-2022 SARS-CoV-2 (COVID-19) Ab IA Ql Negative Negative [facility] Comment on above: This is a duplicate CepAny+Timesid Xpert Xpress CoV-2/Flu/RSV Plus RNA by RT-PCR result to be used for statistical tracking purpose only. SARS-CoV-2 (COVID-19) RNA BARBI+probe Ql (Unsp spec) [facility] XR Spine Lumbar 4+ Views*on 08-21-2021 XR [...] signed by JOVITA MA on 08/21/2021 1223 [facility] HEALTHon 10-04-2020 [facility] HNO ID: [id number] Author: RT Kristin(Batsheva) Service: Radiology Author Type: Pocket Setter Lockstitch Type: Allied Health Filed: 10/04/2020 10:48 AM [...] IV DATA: Not applicable SIGNED BY: RT Kristin(Batsheva) October 04, 2020 10:26 AM [facility] HNO ID: [id number] Author: RT Kristin(Batsheva) Service: Radiology Author Type: Pocket Setter Lockstitch Type: Allied Health Filed: 10/04/2020 9:27 AM Note Text: Waiting for HCG results to come back before performing exam Bing Fernandez) [facility] ED NOTEon 10-04-2020 ED NOTE HNO ID: [id number] Author: Samara Orozco RN Service: ? Author [...] ambulated with steady gait out of ED. [facility] ED NOTE HNO ID: [id number] Author: Samara Orozco RN Service: ? Author Type: Registered Nurse Type: ED Notes Filed: 10/04/2020 11:38 AM Note Text: Pt resting comfortably in bed. Comfort measures offered. Call light within reach. No distress noted at this time. Safety maintained and will continue to monitor patient. [facility] ED NOTE HNO ID: [id number] Author: Samara Orozco RN Service: ? Author Type: Registered Nurse Type: ED Notes Filed: 10/04/2020 11:38 AM Note Text: Pt resting comfortably in bed. Comfort measures offered. Call light within reach. No distress noted at this time. Safety maintained and will continue to monitor patient. [facility] ED NOTE HNO ID: [id number] Author: Akin Mcclain RN Service: ? Author Type: Registered Nurse Type: ED Notes Filed: 10/04/2020 9:21 AM Note Text: PO fluids provided [facility] ED NOTE HNO ID: [id number] Author: Akin Mcclain RN Service: ? Author [...] head or LOC. +MSP; gate is steady. [facility] ED PROV NOTEon 10-04-2020 ED PROV NOTE HNO ID: [id number] Author: Al Castellanos MD Service: Emergency Medicine [...] IV drug use. History provided by: Patient wetland scientist used: No History reviewed. No pertinent past [...] Retention; Fecal Incontinence or Saddle Numbness: No (CRESCENCIOAL HICKS at 10/04/2020 8:41 AM) Gait or Balance Disturbance: Yes (CRESCENCIOAL HICKS at 10/04/2020 8:41 AM) Progressive Weakness in Arms/Legs: No (CRESCENCIOELIUDOZAL at 10/04/2020 8:41 AM) History of Osteoporosis: No (CRESCENCIOAL HICKS at 10/04/2020 8:41 AM) Imaging Needed? Imaging Needed (AL HICKS at 10/05/19 (more content not included)... Normal [facility] HCG Qual, Urineon 10-04-2020 Beta HCG ( test) Ql (U) Negative Normal Negative [facility] Comment on above: Performed By: #### U HCG #### [facility] [address] [place] [address] XR FEMUR 2V AP/LAT RTon 09-11 XR [...] acute bone or joint space abnormality. Manager Welding: PSCB Transcribe Date/Time: Oct 04 2020 10:50A Dictated by : Anca MACKENZIE MD This examination was interpreted and the report reviewed and electronically signed by: Anca MACKENZIE MD on Oct 04 2020 10:55AM EST [id number] N [facility] XR LUMBAR 3V AP/LAT/L5-S1on 10-04-2020 XR LUMBAR [...] Anatomic Variant: Transitional L5 vertebral body. Manager Welding: ROSA Transcribe Date/Time: Oct 04 2020 10:56A Dictated by : Anca MACKENZIE MD This examination was interpreted and the report reviewed and electronically signed by: Anca MACKENZIE MD on Oct 04 2020 10:58AM EST [id number] N [facility] XR PELVIS 1V APon 10-04-2020 XR PELVIS [...] acute bone or joint space abnormality. Manager Welding: ROSA Transcribe Date/Time: Oct 04 2020 10:50A Dictated by : Anca MACKENZIE MD This examination was interpreted and the report reviewed and electronically signed by: Anca MACKENZIE MD on Oct 04 2020 10:55AM EST [id number] N Normal [facility] CHEST 1 VIEWon 10-01-2020 CHEST 1 VIEW Patient Name: MAURY COLLAZO STUDY: CHEST 1 VIEW; 10/01/2020 7:54 am INDICATION: cough. COMPARISON: None. ACCESSION NUMBER(S): [id number] ORDERING CLINICIAN: ERON JONES TECHNIQUE: A portable [...] Electronically signed by: LARS DAMICO MD Normal [facility] CORONAVIRUS 2019 BY PCRon SARS-CoV-2 (COVID-19) RNA BARBI+probe Ql (Unsp spec) Not detected Normal Not Detected [facility] Comment on above: Result Comment: . This assay is designed to detect the RdRp gene of SARS-CoV-2 via nucleic acid amplification. A Not Detected result does not preclude COVID-19 infection since the adequacy of sample collection and/or low viral burden may result in presence of viral nucleic acids below the clinical sensitivity of this test method. Fact sheet for providers: www.fda.gov/media/442617/download Fact sheet for patients: www.fda.gov/media/005263/download This test has received FDA Emergency Use Authorization (EUA) and has been verified by [facility] ([facility]). This test is only authorized for the duration of time that circumstances exist to justify the authorization of the emergency use of in vitro diagnostic tests for the detection of SARS-CoV-2 virus and/or diagnosis of COVID-19 infection under section 564(b)(1) of the Act, 21 U.S.C. 360bbb-3(b)(1), unless the authorization is terminated or revoked sooner. [facility] is certified under CLIA-88 as qualified to perform high complexity testing. Testing is performed in the [facility] laboratory located at [address] [place] [address]. Performed By: #### C OV19 #### [address] [id number] DATE OF SYMPTOM ONSET [YYYYMMDD]? [id number] Normal [facility] Comment on above: Performed By: #### C OV19 #### [address] [id number] Lab Specimen Source Nasal, Nasopharyngeal Normal [facility] Comment on above: Performed By: #### C OV19 #### [address] [id number] Covid 19 Resultson 1 SARS-CoV-2 (COVID-19) RNA [...] You may also be contacted by the [facility] to see if any of [...] or Naproxen (Aleve) can also be used. Ltrc-vwh-mcirknl cough and cold medicines can be used according to the instructions on the package. Some lhii-qgu-eypgpfx medicines also contain acetaminophen. Make sure you [...] water are not available, use alcohol-based hand content checker. Avoid touching your eyes, nose, and mouth [...] 24 reginald (more content not included)... Normal [facility] Provider Note - ED v2on 09-11 [...] As Needed SIGNIFICANT EVENTS: No documented data. CONSERVATION OR HERITAGE ARCHITECT: Is : no(1) Is : no(1) REVIEW [...] SIGNS: T PRBP SpO2O2(LPM) %FiO2 Method 01-Oct-2020 07:27:[id number] 98 room air, no respiratory support PHYSICAL [...] not at (more content not included)... Normal [facility] Risk Screen - Adult Emergenc yon [...] demonstration; verbal instruction Cultural Considerationsnone Developmental Considerationsnone Zoroastrian Considerationsnone Learning Assessment (Other Learner): Learning Assessment [...] injured patient at a Trauma Center ([facility]/[facility]/[place]): no Electronic Signatures: Hailey Shepard (STAFF N) (Signed 01-Oct-2020 07:27) Authored: Preferred Language, Advanced Directives, Family Violence Adult, Learning Assessment (Patient), Learning Assessment (Other Learner), Pressure Injury/TB/Substance, Pressure Injury, CAGE Last Updated: 01-Oct-2020 07:27 by Hailey Shepard (STAFF N) Normal [facility] Triage - EDon 10-01-2020 Triage - [...] Accompanied By: self Language: Spoken Language Preferred: [place] Rican Reading Language Preferred: [place] Drying Machine Back Tender Requested: no side splitter was requested MDRO: History of MDRO: no [...] 01-Oct-2020 07:32 by Hailey Shepard (STAFF N) [facility] CBC AUTO DIFFon 09-10-2018 Basophils #/vol (Bld) 0.0 103/ul Normal 0.0-0.1 [facility] Comment on above: Performed By: #### C BC #### [facility] [address] [place] [address] Dianne Vilchis Basophils/100 WBC (Bld) 0.4 % Normal 0.2-2.0 [facility] Comment on above: Performed By: #### C BC #### [facility] [address] [place] [address] Dianne Mame Eosinophils #/vol (Bld) 0.0 103/ul Normal 0.0-0.7 [facility] Comment on above: Performed By: #### C BC #### [facility] [address] [place] [address] Dianne Vilchis Eosinophils/100 WBC (Bld) 0.4 % Critically low 0.9-7.0 [facility] Comment on above: Performed By: #### C BC #### [facility] [address] [place] [address] Dianne Vilchis Erythrocyte distribution width Ratio (RBC) 12.9 % Normal 11.0-15.0 [facility] Comment on above: Performed By: #### C BC #### [facility] [address] [place] [address] Dianne Vilchis Hematocrit Volume Fraction (Bld) 38.9 % Normal 36.0-48.0 [facility] Comment on above: Performed By: #### C BC #### [facility] [address] [place] [address] Dianne Vilchis Hemoglobin mass conc (Bld) 13.4 g/dL Normal 12.0-16.0 [facility] Comment on above: Performed By: #### C BC #### [facility] [address] [place] [address] Dianne Vilchis IG # 0.03 10e3/ul Normal 0.00-0.03 [facility] Comment on above: Performed By: #### C BC #### [facility] [address] [place] [address] Dianne Vilchis IG % 0.3 % Normal 0.0-0.5 [facility] Comment on above: Performed By: #### C BC #### [facility] [address] [place] [address] Dianne Vilchis Lymphocytes #/vol (Bld) 2.1 103/ul Normal 1.2-3.8 [facility] Comment on above: Performed By: #### C BC #### [facility] [address] [place] [address] Dianne Vilchis Lymphocytes/100 WBC (Bld) 20.3 % Critically low 20.5-60.0 [facility] Comment on above: Performed By: #### C BC #### [facility] [address] [place] [address] Dianne Vilchis MANUAL DIFF REQ NO Normal [facility] Comment on above: Performed By: #### C BC #### [facility] [address] [place] [address] Dianne Vilchis MCH Entitic mass (RBC) 30.4 pg Normal 26.7-34.0 [facility] Comment on above: Performed By: #### C BC #### [facility] [address] [place] [address] Dianne Vilchis MCHC mass conc (RBC) 34.4 g/dL Normal 29.9-35.2 [facility] Comment on above: Performed By: #### C BC #### [facility] [address] [place] [address] Dianne Vilchis MCV Entitic volume (RBC) 88.2 fL Normal 81.0-99.0 [facility] Comment on above: Performed By: #### C BC #### [facility] [address] [place] [address] Dianne Vilchis Monocytes #/vol (Bld) 0.6 103/ul Normal 0.3-0.8 [facility] Comment on above: Performed By: #### C BC #### [facility] [address] [place] [address] Dianne Vilchis Monocytes/100 WBC (Bld) 5.7 % Normal 1.7-12.0 [facility] Comment on above: Performed By: #### C BC #### [facility] [address] [place], [place] [id number] Dianne Mame Neutrophils #/vol (Bld) 7.4 103/ul Critically high 1.4-6.5 [facility] Comment on above: Performed By: #### C BC #### [facility] [address] [place], [place] [id number] Dianne Mame Neutrophils/100 WBC (Bld) 72.9 % Normal 43.0-75.0 [facility] Comment on above: Performed By: #### C BC #### [facility] [address] [place], [place] [id number] Dianneisidro Vilchis Platelet mean volume Entitic volume (Bld) 12.5 fL Normal 9.5-13.5 [facility] Comment on above: Performed By: #### C BC #### [facility] [address] [place], [place] [id number] Dianneisidro Vilchis Platelets #/vol (Bld) 192 103/ul Normal 150-450 [facility] Comment on above: Performed By: #### C BC #### [facility] [address] [place], [place] [id number] Dianne Mame RBC #/vol (Bld) 4.41 106/ul Normal 4.20-5.40 [facility] Comment on above: Performed By: #### C BC #### [facility] [address] [place], [place] [id number] Idanne Mame WBC #/vol (Bld) 10.1 103/ul Normal 4.0-11.0 [facility] Comment on above: Performed By: #### C BC #### [facility] [address] [place], [place] [id number] Dianneisidro Vilchis ER URINE PROFILEon 9 Bilirubin mass conc SMALL Normal NEGATIVE [facility] Comment on above: Performed By: #### E RUR #### [facility] [address] [place], [place] [id number] Dianne Mame BLOOD Negative Normal NEGATIVE [facility] Comment on above: Performed By: #### E RUR #### [facility] [address] [place] [address] Dianne Mame Clarity Nom (U) CLEAR Normal [facility] Comment on above: Performed By: #### E RUR #### [facility] [address] [place] [address] Dianne Mame Color Nom (U) YELLOW Normal YELLOW [facility] Comment on above: Performed By: #### E RUR #### [facility] [address] [place] [address] Dianne Vilchis ERUAHD A micrscopic examination will be performed if indicated. Normal [facility] Comment on above: Performed By: #### E RUR #### [facility] [address] [place] [address] Dianne Mame Glucose mass conc Negative Normal NEGATIVE [facility] Comment on above: Performed By: #### E RUR #### [facility] [address] [place] [address] Dianne Mame Ketones Ql (U) >=80 Normal NEGATIVE [facility] Comment on above: Performed By: #### E RUR #### [facility] [address] [place] [address] Dianne Mame Nitrite Ql (U) Negative Normal NEGATIVE [facility] Comment on above: Performed By: #### E RUR #### [facility] [address] [place] [address] Dianne Mame pH (Bld) 6.0 Normal 5-9 [facility] Comment on above: Performed By: #### E RUR #### [facility] [address] [place] [address] Dianne Mame Protein mass conc (U) TRACE Normal [facility] Comment on above: Performed By: #### E RUR #### [facility] [address] [place] [address] Dianne Mame SPEC GRAVITY 1.025 Normal 1.005-<=1.02 5 [facility] Comment on above: Performed By: #### E RUR #### [facility] [address] [place], [place] [id number] Dianneisidro Vilchis UR MICRO IND NOT INDICATED Normal [facility] Comment on above: Performed By: #### E RUR #### [facility] [address] [place], [place] [id number] Dianne Vilchis Urobilinogen Qn (U) 0.2 EU/dl Normal [facility] Comment on above: Performed By: #### E RUR #### [facility] [address] [id number] Dianne Mame WBC #/vol (Bld) Negative Normal NEGATIVE [facility] Comment on above: Performed By: #### E RUR #### [facility] [address] [place], [place] [id number] Dianne Vilchis PROF 14(COMP METB)on 019 Albumin mass conc 3.8 g/dL Normal 3.5-5.0 [facility] Comment on above: Performed By: #### C MP #### [facility] [address] [place] [address] Dianneisidro Timmonsen Albumin/Globulin mass ratio 1.0 {ratio} Normal [facility] Comment on above: Performed By: #### C MP #### [facility] [address] [place], [place] [phone] Dianne Mame ALP enzyme act/vol 53 U/L Normal 38-126 [facility] Comment on above: Performed By: #### C MP #### [facility] [address] [place] [address] Dianne Vilchis ALT enzyme act/vol 25 U/L Normal 9-52 [facility] Comment on above: Performed By: #### C MP #### [facility] [address] [place], [place] [phone] Dianneisidro Vilchis Anion gap molar conc 13.4 mmol/L Normal [facility] Comment on above: Performed By: #### C MP #### [facility] [address] [place] [address] Diannesiidro Vilchis AST enzyme act/vol 17 U/L Normal 14-36 [facility] Comment on above: Performed By: #### C MP #### [facility] [address] [address] Dianne Mame Bilirubin Ql (U) 0.5 mg/dL Normal 0.2-1.3 [facility] Comment on above: Performed By: #### C MP #### [facility] [address] [address] Dianne Mame Calcium mass conc 9.6 mg/dL Normal 8.4-10.2 [facility] Comment on above: Performed By: #### C MP #### [facility] [address] [address] Dianne Mame Chloride molar conc 101 mmol/L Normal 98-107 [facility] Comment on above: Performed By: #### C MP #### [facility] [address] [address] Dianne Mame CO2 molar conc 24.1 mmol/L Normal 22.0-30.0 [facility] Comment on above: Performed By: #### C MP #### [facility] [address] [address] Dianne Mame Creatinine mass conc 0.64 mg/dL Normal 0.52-1.04 [facility] Comment on above: Performed By: #### C MP #### [facility] [address] [place] [address] Dianne Mame EGFR-AF TUVALUAN >60 Normal >=60 [facility] Comment on above: Performed By: #### C MP #### [facility] [address] [address] Dianne Mame EGFR-NON AF TUVALUAN >60 Normal >=60 [facility] Comment on above: Performed By: #### C MP #### [facility] [address] [address] Dianne Mame Globulin mass conc (S) 3.9 g/dL Normal [facility] Comment on above: Performed By: #### C MP #### [facility] [address] [address] Dianne Mame Glucose mass conc 76 mg/dL Normal 74-106 [facility] Comment on above: Performed By: #### C MP #### [facility] [address] [place], [place] [address] Dianne Mame Potassium molar conc 3.5 mmol/L Normal 3.4-5.0 [facility] Comment on above: Performed By: #### C MP #### [facility] [address] [place], [place] [address] Dianne Mame Protein mass conc 7.7 g/dL Normal 6.1-8.2 [facility] Comment on above: Performed By: #### C MP #### [facility] [address] [address] Dianne Mame Sodium molar conc 135 mmol/L Critically low 137-145 [facility] Comment on above: Performed By: #### C MP #### [facility] [address] [place], [place] [address] Dianne Mame Urea nitrogen mass conc 9.0 mg/dL Normal 6.4-19.3 [facility] Comment on above: Performed By: #### C MP #### [facility] [address] [id number] Dianne Mame Urea nitrogen/Creatinine mass ratio 14.1 mg/mg Normal [facility] Comment on above: Performed By: #### C MP #### [facility] [address] [id number] Dianne Mame Vital Signs Date Time Vital Sign Value Performing Clinician Faci lity 11-23-2024 08:33-0400 Body height 175.3 cm Miracle Padilla MD Work Phone: [facility] 11-23-2024 08:33-0400 Body mass index (BMI) [Ratio] 22.18 kg/m2 Miracle Padilla MD Work Phone: [facility] 11-23-2024 08:33-0400 Body temperature 98.4 [degF] Miracle Padilla MD Work Phone: [facility] 11-23-2024 08:33-0400 Body weight 68.13 kg Miracle Padilla MD Work Phone: [facility] 11-23-2024 08:33-0400 Diastolic blood pressure 74 mm[Hg] Miracle Padilla MD Work Phone: [facility] 11-23-2024 08:33-0400 Heart rate 77 /min Miracle Padilla MD Work Phone: [facility] 11-23-2024 08:33-0400 SaO2% (BldA) [Mass fraction] 99 % Miracle Padilla MD Work Phone: [facility] 11-23-2024 08:33-0400 Systolic blood pressure 122 mm[Hg] Miracle Padilla MD Work Phone: [facility] 08-19-2024 12:48-0400 Body temperature 97.11 [degF] Mame Hemmer PA Work Phone: [facility] 08-19-2024 12:48-0400 Diastolic blood pressure 68 mm[Hg] Mame Hemmer PA Work Phone: [facility] 08-19-2024 12:48-0400 Heart rate 98 /min Mame Hemmer PA Work Phone: [facility] 08-19-2024 12:48-0400 SaO2% (BldA) [Mass fraction] 99 % Mame Hemmer PA Work Phone: [facility] 08-19-2024 12:48-0400 Systolic blood pressure 116 mm[Hg] Mame Hemmer PA Work Phone: [facility] 08-10-2024 09:20-0400 Body height 175.3 cm Miracle Padilla MD Work Phone: [facility] 08-10-2024 09:20-0400 Body mass index (BMI) [Ratio] 22 kg/m2 Miracle Padilla MD Work Phone: [facility] 08-10-2024 09:20-0400 Body temperature 98.2 [degF] Miracle Padilla MD Work Phone: [facility] 08-10-2024 09:20-0400 Body weight 67.59 kg Miracle Padilla MD Work Phone: [facility] 08-10-2024 09:20-0400 Diastolic blood pressure 70 mm[Hg] Miracle Padilla MD Work Phone: [facility] 08-10-2024 09:20-0400 Heart rate 68 /min Miracle Padilla MD Work Phone: [facility] 08-10-2024 09:20-0400 SaO2% (BldA) [Mass fraction] 99 % Miracle Padilla MD Work Phone: [facility] 08-10-2024 09:20-0400 Systolic blood pressure 120 mm[Hg] Miracle Padilla MD Work Phone: [facility] 01-06-2024 19:53-0400 Body height 157.48 cm MD Miracle Padilla Work Phone: [facility] 01-06-2024 19:53-0400 Body temperature 98 [degF] MD Miracle Padilla Work Phone: [facility] 01-06-2024 19:53-0400 Body weight 69.1 kg MD Miracle Padilla Work Phone: [facility] 01-06-2024 19:53-0400 Diastolic blood pressure 71 mm[Hg] MD Miracle Padilla Work Phone: [facility] 01-06-2024 19:53-0400 Heart rate 90 /min MD Miracle Padilla Work Phone: [facility] 01-06-2024 19:53-0400 Respiratory rate 16 /min MD Miracle Padilla Work Phone: [facility] 01-06-2024 19:53-0400 SaO2% (BldA) [Mass fraction] 98 % MD Miracle Padilla Work Phone: [facility] 01-06-2024 19:53-0400 Systolic blood pressure 125 mm[Hg] MD Miracle Padilla Work Phone: [facility] 05-27-2023 11:20-0500 Body temperature 97.52 [degF] [facility] 05-27-2023 11:20-0500 Diastolic blood pressure 84 mm[Hg] [facility] 05-27-2023 11:20-0500 Heart rate 61 /min [facility] 05-27-2023 11:20-0500 Respiratory rate 20 /min [facility] 05-27-2023 11:20-0500 SaO2% (BldA) [Mass fraction] 99 % [facility] 05-27-2023 11:20-0500 Systolic blood pressure 124 mm[Hg] [facility] 05-26-2023 16:14-0500 Body mass index (BMI) [Ratio] 21.86 kg/m2 Bella Camara MD Work Phone: [facility] 05-26-2023 16:14-0500 Body temperature 98.6 [degF] Bella Camara MD Work Phone: [facility] 05-26-2023 16:14-0500 Body weight 67.13 kg Bella Camara MD Work Phone: [facility] 05-26-2023 16:14-0500 Diastolic blood pressure 78 mm[Hg] Bella Camara MD Work Phone: [facility] 05-26-2023 16:14-0500 Heart rate 71 /min Bella Camara MD Work Phone: [facility] 05-26-2023 16:14-0500 SaO2% (BldA) [Mass fraction] 100 % Bella Camara MD Work Phone: [facility] 05-26-2023 16:14-0500 Systolic blood pressure 118 mm[Hg] Bella Camara MD Work Phone: [facility] 05-24-2023 15:36-0500 Body height 175.3 cm Elisabet Giron NP [facility] 05-24-2023 15:36-0500 Body mass index (BMI) [Ratio] 21.86 kg/m2 Elisabet Giron EMPLOYMENT PROGRAM REPRESENTATIVE [facility] 05-24-2023 15:36-0500 Body temperature 98.4 [degF] Elisabet Giron EMPLOYMENT PROGRAM REPRESENTATIVE [facility] 05-24-2023 15:36-0500 Body weight 67.13 kg Elisabet Giron EMPLOYMENT PROGRAM REPRESENTATIVE [facility] 05-24-2023 15:36-0500 Diastolic blood pressure 72 mm[Hg] Elisabet Giron EMPLOYMENT PROGRAM REPRESENTATIVE [facility] 05-24-2023 15:36-0500 Heart rate 109 /min Elisabet Giron EMPLOYMENT PROGRAM REPRESENTATIVE [facility] 05-24-2023 15:36-0500 SaO2% (BldA) [Mass fraction] 99 % Elisabet Giron EMPLOYMENT PROGRAM REPRESENTATIVE [facility] 05-24-2023 15:36-0500 Systolic blood pressure 112 mm[Hg] Elisabet Giron EMPLOYMENT PROGRAM REPRESENTATIVE [facility] 05-19-2023 14:22-0500 Body height 175.3 cm [facility] Work Phone: [facility] 05-19-2023 14:22-0500 Body mass index (BMI) [Ratio] 21.71 kg/m2 [facility] Work Phone: [facility] 05-19-2023 14:22-0500 Body temperature 97.59 [degF] [facility] Work Phone: [facility] 05-19-2023 14:22-0500 Body weight 66.68 kg [facility] PA Work Phone: [facility] 05-17-2023 15:37-0500 Body height 175.3 cm Miracle Padilla MD Work Phone: [facility] 05-17-2023 15:37-0500 Body mass index (BMI) [Ratio] 21.56 kg/m2 Miracle Padilla MD Work Phone: [facility] 05-17-2023 15:37-0500 Body weight 66.22 kg Miracle Padilla MD Work Phone: [facility] 05-17-2023 15:37-0500 Diastolic blood pressure 70 mm[Hg] Miracle Padilla MD Work Phone: [facility] 05-17-2023 15:37-0500 Heart rate 71 /min Miracle Padilla MD Work Phone: [facility] 05-17-2023 15:37-0500 SaO2% (BldA) [Mass fraction] 98 % Miracle Padilla MD Work Phone: [facility] 05-17-2023 15:37-0500 Systolic blood pressure 112 mm[Hg] Miracle Padilla MD Work Phone: [facility] 05-12-2023 11:26-0500 Body height 175.3 cm Miracle Padilla MD Work Phone: [facility] 05-12-2023 11:26-0500 Body mass index (BMI) [Ratio] 21.71 kg/m2 Miracle Padilla MD Work Phone: [facility] 05-12-2023 11:26-0500 Body temperature 98.01 [degF] Miracle Padilla MD Work Phone: [facility] 05-12-2023 11:26-0500 Body weight 66.68 kg Miracle Padilla MD Work Phone: [facility] 05-12-2023 11:26-0500 Diastolic blood pressure 68 mm[Hg] Miracle Padilla MD Work Phone: [facility] 05-12-2023 11:26-0500 Heart rate 65 /min Miracle Padilla MD Work Phone: [facility] 05-12-2023 11:26-0500 SaO2% (BldA) [Mass fraction] 99 % Miracle Padilla MD Work Phone: [facility] 05-12-2023 11:26-0500 Systolic blood pressure 106 mm[Hg] Miracle Padilla MD Work Phone: [facility] 11-10-2022 19:03-0400 Diastolic blood pressure 89 mm[Hg] [facility] 11-10-2022 19:03-0400 Heart rate 53 /min [facility] 11-10-2022 19:03-0400 Mean blood pressure 99 mm[Hg] [facility] 11-10-2022 19:03-0400 Respiratory rate 16 /min [facility] 11-10-2022 19:03-0400 SaO2% (BldA) [Mass fraction] 99 % [facility] 11-10-2022 19:03-0400 Systolic blood pressure 120 mm[Hg] [facility] 11-10-2022 18:15-0400 Diastolic blood pressure 83 mm[Hg] [facility] 11-10-2022 18:15-0400 Heart rate 52 /min [facility] 11-10-2022 18:15-0400 Mean blood pressure 96 mm[Hg] [facility] 11-10-2022 18:15-0400 Respiratory rate 16 /min [facility] 11-10-2022 18:15-0400 SaO2% (BldA) [Mass fraction] 100 % [facility] 11-10-2022 18:15-0400 Systolic blood pressure 122 mm[Hg] [facility] 11-10-2022 17:16-0400 Diastolic blood pressure 80 mm[Hg] [facility] 11-10-2022 17:16-0400 Heart rate 57 /min [facility] 11-10-2022 17:16-0400 Mean blood pressure 93 mm[Hg] [facility] 11-10-2022 17:16-0400 Respiratory rate 16 /min [facility] 11-10-2022 17:16-0400 SaO2% (BldA) [Mass fraction] 100 % [facility] 11-10-2022 17:16-0400 Systolic blood pressure 119 mm[Hg] [facility] Brielle [facility] 11-10-2022 17:10-0400 Hourly Rounding [facility] Antshanda [facility] 11-10-2022 17:10-0400 Promise to Return [facility] Brielle [facility] 11-10-2022 16:06-0400 Body temperature 97.88 [degF] [facility] Brielle [facility] 11-10-2022 16:06-0400 Heart rate 66 /min [facility] 11-10-2022 16:06-0400 Respiratory rate 16 /min [facility] 04-13-2022 00:12-0500 Diastolic blood pressure 61 mm[Hg] DO Phillip Petznick Work Phone: [facility] 04-13-2022 00:12-0500 Heart rate 75 /min DO Phillip Petznick Work Phone: [facility] 04-13-2022 00:12-0500 Respiratory rate 18 /min DO Phillip Petznick Work Phone: [facility] 04-13-2022 00:12-0500 SaO2% (BldA) [Mass fraction] 98 % DO Phillip Petznick Work Phone: [facility] 04-13-2022 00:12-0500 Systolic blood pressure 120 mm[Hg] DO Phillip Petznick Work Phone: [facility] 04-12-2022 22:49-0500 Body height 175.26 cm DO Phillip Petznick Work Phone: [facility] 04-12-2022 22:49-0500 Body temperature 101.4 [degF] DO Phillip Petznick Work Phone: [facility] 04-12-2022 22:49-0500 Body weight 61 kg DO Phillip Petznick Work Phone: [facility] 04-07-2022 23:14-0500 Body height 175.26 cm DO Phillip Petznick Work Phone: [facility] 04-07-2022 23:14-0500 Body temperature 98.7 [degF] DO Phillip Petznick Work Phone: [facility] 04-07-2022 23:14-0500 Body weight 69 kg DO Phillip Petznick Work Phone: [facility] 04-07-2022 23:14-0500 Diastolic blood pressure 67 mm[Hg] DO Phillip Petznick Work Phone: [facility] 04-07-2022 23:14-0500 Heart rate 110 /min DO Phillip Petznick Work Phone: [facility] 04-07-2022 23:14-0500 Respiratory rate 16 /min DO Phillip Petznick Work Phone: [facility] 04-07-2022 23:14-0500 SaO2% (BldA) [Mass fraction] 99 % DO Phillip Petznick Work Phone: [facility] 04-07-2022 23:14-0500 Systolic blood pressure 112 mm[Hg] DO Phillip Petznick Work Phone: [facility] Encounters Encounter Date Encounter Type Care Provider Facility Start: 11-23-2024 End: 11-23-2024 Bamboo flowsheet Miracle Padilla MD Work Phone: [facility] Start: 11-23-2024 End: 11-23-2024 Bamboo flowsheet Miracle Padilla MD Work Phone: [facility] Start: 11-23-2024 End: 11-23-2024 Office outpatient visit 15 minutes Miracle Padilla MD Work Phone: [facility] Comment on above: Left hip pain (Prima ry Dx); Contusion of right knee, initial encounter; Tingling sensation Start: 11-23-2024 End: 11-23-2024 ambulatory MIRACLE PADILLA Not Available Start: 08-28-2024 End: 08-28-2024 ambulatory MIRACLE PADILLA Not Available Start: 08-28-2024 End: 08-28-2024 Postop follow up visit related to original px Miracle Padilla MD Work Phone: [facility] Comment on above: Vertigo (Primary Dx) Start: 08-19-2024 End: 08-19-2024 Office outpatient visit 15 minutes Mame TOPETE Work Phone: [facility] Comment on above: Gastroenteritis (Deena fran Dx); Pharyngitis, unspecified etiology; PND (post-nasal drip) Start: 08-19-2024 End: 08-19-2024 ambulatory MAME JIMÉNEZ Not Available Start: 08-16-2024 End: 08-16-2024 Patient encounter procedure Bella Camara MD Work Phone: [facility] Comment on above: Encounter for survei llance of injectable contraceptive Start: 08-16-2024 End: 08-16-2024 ambulatory BELLA CAMARA Not Available Start: 08-10-2024 End: 08-10-2024 Bamboo flowsheet Miracle Padilla MD Work Phone: [facility] Start: 08-10-2024 End: 08-10-2024 Bamboo flowsheet Miracle Padilla MD Work Phone: [facility] Start: 08-10-2024 End: 08-10-2024 Patient encounter procedure Miracle Padilla MD Work Phone: [facility] Start: 08-10-2024 End: 08-10-2024 Periodic preventive med est patient 18-39 yrs Miracle Padilla MD Work Phone: [facility] Comment on above: Annual physical exam (Primary Dx); Encounter for surveillance of injectable contraceptive; Anxiety; Atypical migraine (CMS/HCC); Difficulty sleeping; Trochanteric bursitis of right hip; S/P lateral meniscus repair of right knee Start: 08-10-2024 End: 05-01-2025 ambulatory MIRACLE PADILLA Not Available Start: 07-03-2024 End: 07-03-2024 ambulatory Usman Murillo [facility] Work Phone: Start: 07-03-2024 End: 07-03-2024 Departed Referred Usman Murillo MD Work Phone: [facility] Start: 05-24-2024 End: 05-25-2024 Clinisync Result Encounter Marilyn Smith EMPLOYMENT PROGRAM REPRESENTATIVE Work Phone: [facility] Unsolicited Start: 05-24-2024 End: 05-25-2024 Clinisync Result Encounter Marilyn Smith EMPLOYMENT PROGRAM REPRESENTATIVE Work Phone: [facility] Unsolicited Start: 01-07-2024 End: 01-07-2024 Telephone encounter Bella Camara MD Work Phone: [facility] Comment on above: ER Follow-up Start: 01-06-2024 End: 01-06-2024 Emergency department patient visit MD Miracle Padilla Work Phone: [facility] Work Phone: Start: 01-05-2024 [...] Comment on above: Difficulty sleeping; Anxiety Start: 10-07-2023 End: 10-07-2023 ambulatory ASHLIETORSTEN CRANE Facility[place] Start: 10-07-2023 End: 10-07-2023 Patient encounter procedure ASHLIE CRANE [facility] Start: 05-27-2023 End: 05-27-2023 Emergency department patient visit Michael Hannah [facility] Start: 05-26-2023 End: 05-26-2023 Patient encounter procedure Bella Camara MD Work Phone: [facility] Comment on above: Anxiety Start: 05-25-2023 Bamboo flowsheet Shelly J Chase s PT Work Phone: [facility] Start: 05-25-2023 Bamboo flowsheet Shelly J Chase s PT Work Phone: [facility] Start: 05-24-2023 End: 05-24-2023 Patient encounter procedure Elisabet Giron EMPLOYMENT PROGRAM REPRESENTATIVE [facility] Comment on above: Nasal injury, initia l encounter (Primary Dx); Generalized headache; BMI 21.0-21.9, adult Start: 05-24-2023 Bamboo flowsheet Elisabet A Don namiller EMPLOYMENT PROGRAM REPRESENTATIVE [facility] Start: 05-24-2023 Bamboo flowsheet Elisabet A Yovany namiller EMPLOYMENT PROGRAM REPRESENTATIVE [facility] Start: 05-19-2023 End: 05-19-2023 Patient encounter procedure Zack TOPETE Work Phone: [facility] Comment [...] department patient visit Michael Hannah [facility] Start: 04-12-2022 End: 04-13-2022 Emergency department patient visit DO Phillip Tripp Work Phone: [facility] Work Phone: Start: 04-07-2022 End: 04-08-2022 Emergency department patient visit DO Phillip Tripp Work Phone: [facility] Work Phone: Start: 09-10-2018 End: 09-10-2018 Patient encounter procedure [facility] Facility: Procedures Date Procedure Procedure Detail Performing Clinician Start: 08-19-2024 Iadna streptococcus group a amplified probe tq Agustin Hernandez DO Work Phone: Start: 08-16-2024 Urine test visual color cmprsn dheeraj Camara MD Work Phone: Start: 08-10-2024 Urine test visual color cmprsn dheeraj Padilla MD Work Phone: Start: 05-24-2024 HEPATITIS B SURF AB QUANT Marilyn Smith EMPLOYMENT PROGRAM REPRESENTATIVE Work Phone: Start: 05-24-2024 MEASLES/MUMPS/RUBELL A IMMUNITY Marilyn Smith EMPLOYMENT PROGRAM REPRESENTATIVE Work Phone: Start: 05-24-2024 VARICELLA-ZOSTER V A B, IGG Marilyn Smith EMPLOYMENT PROGRAM REPRESENTATIVE Work Phone: Start: 05-19-2023 End: 05-19-2023 Radex spine lumbosacral minimum 4 views Zack TOPETE Work Phone: Start: 04-07-2022 SARS-CoV-2, Influenz a & RSV (PCR) DO Phillip Tripp Work Phone: History of operative procedure on knee S/P lateral meniscus repair of right knee Miracle Padilla MD Work Phone: Plan of Treatment Date Care Activity Detail Author Start: 12-11-2024 Influenza vaccination [facility] Start: 11-23-2024 End: 11-23-2024 Patient encounter procedure 11/23/2024 8:30 AM EDT Office Visit [facility] [address] [place] [address] Miracle Padilla MD [address] [place] [address] Arrived [facility] [place] [facility] Comment on above: Arrived Start: 11-10-2024 End: 11-10-2024 Patient encounter procedure 11/10/2024 8:15 AM EDT Office Visit [facility]OH[facility] ROBERSON [address] [place] [id number] Miracle Padilla MD [address] [place] [address] [facility] Start: 08-10-2024 End: 08-10-2024 Patient encounter procedure 08/10/2024 8:45 AM EDT Office Visit SOHAN JARVIS [address] [place] [id number] Miracle Padilla MD [address] [place] [address] Arrived [facility]OHAN JARVIS Comment on above: Arrived Start: 07-03-2024 Bacteria identified in Urine by Culture Urine Culture [facility] Start: 07-03-2024 Urine culture [facility] Start: 02-15-2024 End: 02-15-2024 Patient encounter procedure 02/15/2024 8:00 AM EST Office Visit [facility] [address] [place] [phone] Miracle Padilla MD [address] [place] [address] [facility] Start: 01-18-2024 End: 01-18-2024 Patient encounter procedure 01/18/2024 1:30 PM EDT Office Visit [facility] [address] [place] [phone] Miracle Padilla MD [address] [place] [address] [facility] Start: 12-12-2023 Influenza vaccination Influenz a Vaccine (#1) [facility] Start: 06-11-2023 End: 06-11-2023 ambulatory 06/11/2023 3:30 PM EST Treatment [facility] [address] [place] [phone] Shelly Arnett, PT [address] [place] [address] [facility] Start: 06-04-2023 End: 06-04-2023 ambulatory 06/04/2023 4:15 PM EST Treatment [facility] [address] [place] [phone] Shelly Arnett, PT [address] [place] [address] [facility] Start: 05-25-2023 End: 05-25-2023 ambulatory [facility] Comment on above: It band syndrome, ri ght; Trochanteric bursitis of right hip Start: 05-24-2023 End: 05-24-2023 Patient encounter procedure 05/24/2023 3:30 PM EST Office Visit [facility] [address] [place] [phone] Elisabet Giron NP Arrived [facility] Comment on above: Arrived Start: 04-12-2022 Plain chest X-ray XR chest 1V portab le [facility] Start: 04-12-2022 XR Chest Single view [facility] Patient Education [facility] Work Phone: Patient referral [facility] Work Phone: Immunizations Immunization Date Immunization Notes Care Provider Paz castanon 02-19-2023 influenza, injectabl e, quadrivalent, contains preservative [facility] Work Phone: [facility] 02-19-2023 influenza virus vaccine, unspecified formulation Miracle Padilla MD Work Phone: [facility] 01-15-2020 influenza, injectabl e, quadrivalent, preservative free [facility] Work Phone: [facility] 01-26-2019 influenza, injectabl e, quadrivalent, preservative free [facility] Work Phone: [facility] 01-26-2019 tetanus toxoid, redu baltazar diphtheria toxoid, and acellular pertussis vaccine, adsorbed [facility] Work Phone: [facility] 06-21-2018 tetanus toxoid, redu baltazar diphtheria toxoid, and acellular pertussis vaccine, adsorbed [facility] 06-06-2018 influenza, injectabl e, quadrivalent, preservative free [facility] 01-22-2011 influenza, seasonal, injectable, preservative free [facility] Work Phone: [facility] 01-22-2011 meningococcal polysaccharide (groups A, C, Y and W-135) diphtheria toxoid conjugate vaccine (MCV4P) [facility] Work Phone: [facility] 01-22-2011 tetanus toxoid, redu baltazar diphtheria toxoid, and acellular pertussis vaccine, adsorbed [facility] Work Phone: [facility] 02-16-2009 novel [id number], preservative-free, injectable [facility] Work Phone: [facility] 01-30-2009 influenza virus vaccine, live, attenuated, for intranasal use [facility] Work Phone: [facility] 02-03-2008 influenza, seasonal, injectable [facility] Work Phone: [facility] 03-01-2007 influenza virus vaccine, whole virus [facility] Work Phone: [facility] 07-24-2003 diphtheria, tetanus toxoids and acellular pertussis vaccine [facility] Work Phone: [facility] 07-24-2003 measles, mumps and rubella virus vaccine [facility] Work Phone: [facility] 07-24-2003 poliovirus vaccine, inactivated [facility] Work Phone: [facility] 03-22-2003 influenza, seasonal, injectable [facility] Work Phone: [facility] 09-30-2000 pneumococcal conjuga te vaccine, 7 valent [facility] Work Phone: [facility] 04-08-2000 influenza, seasonal, injectable [facility] Work Phone: [facility] 02-12-2000 influenza virus vaccine, whole virus [facility] Work Phone: [facility] 10-17-1999 diphtheria, tetanus toxoids and acellular pertussis vaccine, unspecified formulation [facility] Work Phone: [facility] 10-17-1999 haemophilus influenz ae type b vaccine, conjugate unspecified formulation [facility] Work Phone: [facility] 10-17-1999 measles, mumps and rubella virus vaccine [facility] Work Phone: [facility] 05-14-1999 poliovirus vaccine, inactivated [facility] Work Phone: [facility] 04-10-1999 diphtheria, tetanus toxoids and acellular pertussis vaccine, unspecified formulation [facility] Work Phone: [facility] 04-10-1999 haemophilus influenz ae type b vaccine, conjugate unspecified formulation [facility] Work Phone: [facility] 04-10-1999 hepatitis B vaccine, pediatric or pediatric/adolescent dosage [facility] Work Phone: [facility] 04-10-1999 trivalent poliovirus vaccine, live, oral [facility] Work Phone: [facility] 01-29-1999 diphtheria, tetanus toxoids and acellular pertussis vaccine, unspecified formulation [facility] Work Phone: [facility] 01-29-1999 haemophilus influenz ae type b vaccine, conjugate unspecified formulation [facility] Work Phone: [facility] 01-29-1999 poliovirus vaccine, inactivated [facility] Work Phone: [facility] 1998 diphtheria, tetanus toxoids and acellular pertussis vaccine, unspecified formulation [facility] Work Phone: [facility] 1998 haemophilus influenz ae type b vaccine, conjugate unspecified formulation [facility] Work Phone: [facility] 1998 hepatitis B vaccine, pediatric or pediatric/adolescent dosage [facility] Work Phone: [facility] 1998 poliovirus vaccine, inactivated [facility] Work Phone: [facility] 1998 hepatitis B vaccine, pediatric or pediatric/adolescent dosage [facility] Work Phone: [facility] NEGATED: Highlighted row has not occurred!03-03-2019 tetanus toxoid, reduced diphtheria toxoid, and acellular pertussis vaccine, adsorbed DO Phillip Tripp Work Phone: [facility] Payers Date Payer Category Payer [facility] er [id number] 2024 Unknown [id number] 2024 Self-pay [id number] 2022 Unknown [employer] [facility] [employer] [id number] 2022-Present [address] [place] [address] [id number] 1998 Unknown [id number] 1998 Unknown [id number] 1998 Unknown [id number] 1998 Unknown [id number] 1998 Unknown [id number] .[id number] 1998 Unknown [id number] .[id number] 1998 Unknown [id number] .[id number] 1998 Unknown [id number] .1259 1998 Unknown [id number] .9 1998 Unknown [id number] 1959 Unknown [id number] Unknown [id number] Private Health Insurance [id number] Unknown [id number] Unknown [id number] .[id number] Worker's Compensation [employer] Misc [id number] Social History Date Type Detail Facility Tobacco smoking stat us CTIS Unknown if ever smoked [facility] Start: 2000 Sex Assigned At Female F [facility] Start: 04-12-2014 End: 04-12-2022 Tobacco smoking status NHIS Smoker (finding) [facility] Start: 11-10-2022 Tobacco smoking status Heavy t obacco smoker (finding) [facility] Start: 10-14-2022 End: 11-23-2024 Sex Assigned At Female [facility] Start: 04-12-2014 End: 05-19-2023 Tobacco smoking status [facility] Smokes tobacco daily [facility] Start: 04-12-2014 History of tobacco use Cigarette Smo ker [facility] Start: 10-14-2022 End: 05-19-2023 Cigarettes smoked current (pack per day) - Reported 0.3 [facility] Start: 05-19-2023 End: 11-16-2023 Tobacco use and exposure Smokeless tobacco non-user [facility] Start: 05-19-2023 End: 11-23-2024 Alcohol intake Ex-drinker (finding) [facility] Within the last year , have you been afraid of your partner or ex-partner? No [facility] How often do you att end gnosticism or restorationism services? Patient refused [facility] Are you [...] intake: 3-4 cups per day occasional, soda/pop [facility] Start: 2000 Sex Assigned At Not on file N [facility] Start: 11-16-2023 End: 01-06-2024 Tobacco smoking status NHIS Ex-smoker (finding) [facility] Start: 07-04-2024 Sex Female (finding) [facility] Goals Date Patient Goal Desired Activity /State Functional Status Date Assessment Result Facility 11-23-2024 Patient Health Quest ionnaire 2 item (PHQ-2) [Reported] [facility] 05-27-2023 Functional Status N/A [facility] 11-10-2022 Functional Status N/A [facility] Clinical Notes 09-05-2021 to 11-23-2024 Miracle Padilla MD - 11/23/2024 8:30 AM EDPrashanth Padilla MD - 08/28/2024 10:45 AM EFREM Kathleen - 08/19/2024 12:45 PM GONZALOTMaame Borrego MA - 08/16/2024 1:45 PM EDT Note Date & Type Note Facility 11-23-2024 History of Present illness Narrative Maury Collazo is a 24 y.o. female presents with chief complaint of No chief complaint on file. HPI: History of Present Illness The patient presents for evaluation of left hip pain, right thumb pain, and left hand stiffness. She reports persistent swelling and pain in her right knee following a fall approximately 3 weeks ago. The pain is described as intense and unrelenting. The fall occurred when she got up quickly in the middle of the night, slipped, and fell. Despite efforts to manage the swelling and pain with ice, the symptoms have not improved. She experiences a tingling sensation in her hip after sitting for more than 10 minutes, it also hurts to lie on,which also affects her ability to walk or stand for extended periods. She has difficulty lying down completely and relies on trazodone for sleep due to the pain. She has tried stretching exercises, which provide temporary relief, but the pain returns once she resumes her daily activities. She has received injections in the past for this issue. Additionally, she mentions stiffness in her left hand, particularly in her pinky finger, which she feels the need to crack. This results in a tingling sensation. 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 She also reports a popping sensation in her wrist one day, which felt like her hand was stuck momentarily before resolving. She has not experienced any issues with her elbow. She had an x-ray of her right thumb about 8 months ago at the ER, which showed no fracture, but she continues to experience pain. The pain is so severe that she is unable to lift objects with her thumb. She has been managing the pain with ibuprofen. Her migraines are well-controlled with her current medication regimen. She reports no respiratory issues such as coughing or breathing difficulties. She has not needed to use her inhaler recently. 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 OBJECTIVE: Visit Vitals BP 122/74 (BP Location: Left arm, Patient Position: Sitting, BP Cuff Size: Adult) Pulse 77 Temp 98.4 F (Temporal) Ht 5' 9 Wt 150 lb 3.2 oz SpO2 99% BMI 22.18 kg/m OB Status Having periods Smoking Status Former BSA 1.82 m BP Readings from Last 3 Encounters: 11/23/24 122/74 08/19/24 116/68 08/10/24 120/70 Wt Readings from Last 3 Encounters: 11/23/24 150 lb 3.2 oz 08/10/24 149 lb 11/16/23 150 lb Physical Exam Physical Exam Extremities: Normal range of motion left hip with point tenderness about the left greater trochanter. Left hand is normal with normal range of motion and strength. Right thumb exhibits some tenderness over the extensor tendon, especially when flexing the thumb, compatible with de Quervain's. There is a 3 cm x 3 cm bruise just lateral to the inferior 1/2 of the patellar tendon Results ASSESSMENT AND PLAN: Assessment & Plan 1. Left hip pain. - Persistent pain and tingling in the left hip, exacerbated by prolonged sitting or standing. - Normal range of motion in the left hip with point tenderness about the left greater trochanter. - Referral to physical therapy for evaluation and management of hip pain/bursitis - Physical therapy is preferred before considering orthopedic consultation. 2. Right thumb pain. - Tenderness over the extensor tendon of the right thumb, especially when flexing, compatible with de Quervain's tenosynovitis. - Normal range of motion and strength in the left hand. - Ice application recommended for symptom relief. - Consider cortisone injection if symptoms persist. 3. Left hand stiffness. - Stiffness and tingling in the left hand, particularly affecting the pinky, exacerbated by activities such as driving. - Normal range of motion and strength in the left hand. - Symptoms not consistent with carpal tunnel syndrome; likely ulnar nerve irritation or scar tissue. - No immediate intervention required; expected to resolve spontaneously. 4. Migraines. - Migraines are well-controlled with current medication regimen. - No changes needed in migraine management. Assessment/Plan Health Maintenance Due Topic Date Due Influenza Vaccine (1) 12/11/2024 documented in this encounter [facility] 08-28-2024 History of Present illness Narrative Images [...] for this patient. documented in this encounter [facility] 08-19-2024 History of Present illness Narrative Images from the original note were not included. [address], [address] [facility], [address] P: [phone] F: [phone] [facility] Historian of HPI: patient Maury Collazo is [...] A positive Psychogenic nonepileptic seizure Ruptured eardrum 2006 Scoliosis Stress fracture Tear [...] as prescribed to help with the drainage. Mame HAYES, KELLE documented in this encounter [facility] 08-16-2024 History of Present illness Narrative Rx for Depo sent to pharmacy per Dr. Camara. documented in this encounter [facility] 08-10-2024 History of Present illness Narrative Images [...] has worsened following a long drive from [place]. She has discontinued the use of Zanaflex [...] a year. 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 She has quit [...] Prescription for Wellbutrin will be sent to [facility]. 2. Migraine. - Experiences migraines infrequently but still requires preventive medication. - Physical exam and history indicate the need for continued migraine prophylaxis. - Discussed the benefits of resuming topiramate 25 mg at bedtime. - Prescription for topiramate will be sent to [facility]. 3. Hip pain. - Reports hip pain, especially after a long drive from [place]. - Physical exam findings support the need for anti-inflammatory medication. - Discussed the continued use of etodolac for inflammation management. - Prescription for etodolac will be sent to [facility]. 4. Anxiety. - Uses BuSpar as needed for anxiety management. - History and patient report indicate effective control of anxiety symptoms with current medication. - Discussed the continued need for BuSpar as needed. - Prescription for BuSpar will be sent to [facility]. Assessment/Plan There are no preventive care reminders to display for this patient. documented in this encounter [facility] 01-07-2024 Telephone encounter Note Lvmtcb please complete ayah [facility] 01-07-2024 Miscellaneous Notes Lvmtcb please complete ayah Per fax inbox pt was seen [facility] 01/05 low back pain documented in this encounter [facility] 01-07-2024 Telephone encounter Note Per fax inbox pt was seen [facility] 01/05 low back pain [facility] 01-05-2024 Telephone encounter Note Called ft instead [facility] 01-05-2024 Miscellaneous Notes Called ft instead For what symptoms or pain? Pt calls and asks for a referral to pain management, please advise thank you documented in this encounter [facility] 01-05-2024 Telephone encounter Note For what symptoms or pain? [facility] 01-05-2024 Telephone encounter Note Pt calls and asks for a referral to pain management, please advise thank you [facility] 12-31-2023 History of Present illness Narrative Images [...] Vaccine (1) 12/12/2023 documented in this encounter [facility] 05-27-2023 Hospital Discharge instructions Patient Education 05/27/2023 [...] sitting or lying down. General instructions Take agbo-tpm-djtuhnc and prescription medicines only as told by [...] 07/06/2022 Document Reviewed: 02/16/2020 Elsevier Patient Education 2022 Likeastore Follow Up Care 05/27/2023 11:17:41 With:Russell Chavez Address: [facility] [place] [address] Polyheal (1) When:05/30/2023 12:39:45 [facility] 05-27-2023 Evaluation + Plan note Extrac charli from: Title:ED Note Author:Pola Purcell PA-C te:05/27/23 Knee sprain (S83.90XA: Sprai n of unspecified site of unspecified knee, initial encounter) Orders: Knee Brace XR Knee Complete 4+ Views Right [facility]02-14-2024 History of Present illness Narrative* Bella [...] further adjustments if necessary. documented in this encounterSoutheast [facility] [id number] History of Present illness Narrative* Elisabet Giron, MESSI - 05/24/2023 3:30 PM EST Maury Collazo [...] sub stitutions have occurred. documented in this encounterSoutheast [facility] HospitalKzwdnhaehc19-90-8064 History of Present illness Narrative* EFREM Mccabe [...] Specialty Services Required Referred to Provider: Daja Carter, PT Requested Specialty: Physical Therapy Number of [...] ultrasound guidance. EFREM Mccabe documented in this encounterSoutheast [facility] HospitalPiwugofkwn59-45-1794 Instructions* Patient Instructions* EFREM Mccabe - 05/19/2023 [...] cortisone under ultrasound guidance. documented in this encounterSoutheast Missouri [id number] History of Present illness Narrative* Maame Whitten [...] She states she is going [facility], She saw Zack Conn previously. SUBJECTIVE: MEDICATIONS: Current Outpatient Medications [...] the decisions I made. documented in this encounterSoutheast Missouri HospitalShdpyaexsy55-26-9014 History of Present illness Narrative* Maame Fish [...] left hip and back. She saw Dr Cason, he referred her to pain management. She [...] the decisions I made. documented in this encounterSoutheast Missouri HospitalBecoqmlscc88-49-3097 Hospital Discharge instructions Patient Education 11/10/2022 19:05:26 [...] to any changes in your symptoms. Take does-ijh-fisptih and prescription medicines only as told by [...] provider. Document Revised: 11/15/2021 Document Reviewed: 11/15/2021 Elsevier Patient Education 2022 [employer] Document Management software. 11/10/2022 19:05:26 Abdominal Pain, Adult Abdominal Pain, [...] Follow these instructions at home: Medicines Take sagk-ame-gaunksr and prescription medicines only as told by [...] Watch your condition for any changes. Take kjqt-gta-gxaaocv and prescription medicines only as told by [...] provider. Document Revised: 05/17/2020 Document Reviewed: 08/07/2019 [employer] Patient Education 2022 File[employer] Document Management software. Follow Up Care 11/10/2022 15:59:56 With:Bella Camara Address: [place] [place] [address]- Business (1) When:11/13/2022 18:55:01 Comments:Retrurn to the emergency room if your shortness of breath recurs, abdominal pain recurs or any new symptoms. [facility]08-01-2023 Evaluation + Plan noteExtracted from: Title:ED [...] Reflex XR Chest Single View [facility]05-27-2022 NoteHISTORY: Mid to lower back pain [...] and signed by Jonnie Jacob on 09/09/2021 1057[facility] SpecialistEvaluation noteNo assessment information availableTuscarawas Hospital Ctr Work Phone: Evaluation note* Diagnosis It band syndrome, right- Primary Right hip pain Pain in joint, pelvic region and thigh Trochanteric bursitis of right hip documented in this encounter [facility] HealthcareEvaluation note* Diagnosis Trochanteric bursitis of right hip- Primary documented in this encounter [facility] HealthcareEvaluation note* Diagnosis Nasal injury, initial encounter- Primary Generalized headache BMI 21.0-21.9, adult documented in this encounter [facility] HealthcareEvaluation note* Diagnosis Trochanteric bursitis of right hip- Primary Levoscoliosis documented in this encounter [facility] HealthcareEvaluation note* Diagnosis Anxiety Anxiety state, unspecified documented in this encounter [facility] HealthcareEvaluation note* Diagnosis Difficulty sleeping Unspecified sleep disturbance Anxiety Anxiety state, unspecified documented in this encounter [facility] HealthcareEvaluation note* Diagnosis Encounter for surveillance of injectable contraceptive documented in this encounter [facility] HealthcareEvaluation note* Diagnosis Gastroenteritis- Primary Other and unspecified noninfectious gastroenteritis and colitis Pharyngitis, unspecified etiology PND (post-nasal drip) Postnasal drip documented in this encounter [facility] HealthcareEvaluation note* Diagnosis Annual physical exam- Primary [...] of right knee documented in this encounter [facility] HealthcareEvaluation note* Diagnosis Vertigo- Primary Dizziness and giddiness documented in this encounter [facility] HealthcareEvaluation note* Diagnosis Left hip pain- Primary Pain in joint, pelvic region and thigh Contusion of right knee, initial encounter Tingling sensation Disturbance of skin sensation documented in this encounter [facility] HealthcareHospital course Narrative No data available for this section [facility] Discharge instructions Additional Instructions If your symptoms return/worsen or you develop any further concerns or symptoms please see your doctor or return to the emergency department immediately.[facility] Work Phone: Hospital Discharge instructions Additional Instructions Increase your intake of fluids. Take Zofran as prescribed for any nausea. Take Tamiflu to help decrease the duration of symptoms. Take Motrin Tylenol as needed for fever and chest pain. Follow-up with PCP for any persistent symptoms in 5 to 7 days.[facility] Work Phone: Hospital Discharge instructions No data available for this section [facility] Hospital[facility] note No data available for this section [facility] Summary Purpose Family History No Family History Records Found Relationship Condition Age at Onset Recorded Date/T fadi grandparent Unknown grandparent Diabetes mellitus Unknown Advance Directives No Advanced Directives Records Found [...] right Trochanteric bursitis of right hip Procedures DE OFFICE/OUTPATIENT [facility] MDM 60 MINUTES Zack Conn, PA [address] [place] [address] Daja Carter, PT [address] [place] [address] Referral ID Status Reason Start Date Expiration Date Visits Requested Visits Authorized [id number] Pending Review Specialty Services Required 05/19/2023 11/15/2023 1 1 Additional Source Comments INFORMATION SOURCE (unrecogn ized section and content) DATE CREATED AUTHOR 09/14/2018 [facility] DATE CREATED AUTHOR AUTHOR'S ORGANIZ ATION 10/01/2020 [facility] DATE CREATED AUTHOR AUTHOR'S ORGANIZ ATION 10/05/2020 [facility] DATE CREATED AUTHOR AUTHOR'S ORGANIZ ATION 09/09/2021 [facility] DATE CREATED AUTHOR AUTHOR'S ORGANIZ ATION 10/16/2023 [facility] DATE CREATED AUTHOR AUTHOR'S ORGANIZ ATION 07/28/2024 [facility] DATE CREATED AUTHOR AUTHOR'S ORGANIZ ATION 11/24/2024 [facility] dical Specialists EPIC Care Teams [...] Phillip Shaw , DO Emergency Provider Active Teacher Relationship Specialty Start Date End Date Bella Camara MD [address] [place] [address] PCP - General Family Medicine 09/04/22 Morenita Corona, PA [address] [place] [address] PCP - Medical [place] [employer] 09/10/22 Teacher Relationship Specialty Start Date End Date Bella Camara MD [address] [place] [address] PCP - General Family Medicine 09/04/22 Morenita Corona, PA [address] [place] [address] PCP - Medical [place] [employer] 09/10/22 Teacher Relationship Specialty Start Date End Date Bella Camara MD [address] [place] [address] PCP - General Family Medicine 09/04/22 Morenita Corona PA [address] [place] [address] PCP - Medical [place] [employer] 09/10/22 Teacher Relationship Specialty Start Date End Date Bella Camara MD [address] [place] [address] PCP - General Family Medicine 09/04/22 Morenita Corona PA [address] [place] [address] PCP - Medical [place] [employer] 09/10/22 Teacher Relationship Specialty Start Date End Date Bella Camara MD [address] [place] [address] PCP - General Family Medicine 09/04/22 Morenita Corona PA [address] [place] [address] PCP - Medical [place] [employer] 09/10/22 Teacher Relationship Specialty Start Date End Date Bella Camara MD [address] [place] [address] PCP - General Family Medicine 09/04/22 Morenita Corona PA [address] [place] [address] PCP - Medical [place] [employer] 09/10/22 Teacher Relationship Specialty Start Date End Date Bella Camara MD [address] [place] [address] PCP - General Family Medicine 09/04/22 Morenita Corona PA [address] [place] [address] PCP - Medical [place] [employer] 09/10/22 Team Status: Active Member Role Status Dates Miracle Padilla MD Primary Care Provider Active Team Status: Inactive Member Role Status Dates Miracle Padilla MD Primary Care Provider Active S tart: January 06, 2024 End: January 06, 2024 [place]o [place] APRN Emergency Provider Active Start: January 06, 2024 End: January 06, 2024 Teacher Relationship Specialty Start Date End Date Bella Camara MD [address] [place] [address] PCP - General Family Medicine 09/04/22 01/06/24 Teacher Relationship Specialty Start Date End Date Bella Camara MD [address] [place] [address] PCP - General Family Medicine 09/04/22 Teacher Relationship Specialty Start Date End Date Bella Camara MD [address] [place] [address] PCP - General Family Medicine 09/04/22 Teacher Relationship Specialty Start Date End Date Miracle Padilla MD [address] [place] [address] PCP - General Family Medicine 01/07/24 Teacher Relationship Specialty Start Date End Date Miracle Padilla MD [address] [place] [address] PCP - General Family Medicine 01/07/24 Team Status: Inactive Member Role Status Dates Usman Murillo MD Attending Provider Active St art: July 03, 2024 End: July 03, 2024 Teacher Relationship Specialty Start Date End Date Miracle Padilla MD [address] [place] [address] PCP - General Family Medicine 01/07/24 Teacher Relationship Specialty Start Date End Date Miracle Padilla MD [address] [place] [address] PCP - General Family Medicine 01/07/24 Teacher Relationship Specialty Start Date End Date Miracle Padilla MD [address] [place] [address] PCP - General Family Medicine 01/07/24 Teacher Relationship Specialty Start Date End Date Miracle Padilla MD [address] [place] [address] PCP - General Family Medicine 01/07/24 Teacher Relationship Specialty Start Date End Date Miracle Padilla MD [address] [place] [address] PCP - General Family Medicine 01/07/24 Teacher Relationship Specialty Start Date End Date Miracle Padilla MD [address] [place] [address] PCP - General Family Medicine 01/07/24 Teacher Relationship Specialty Start Date End Date Miracle Padilla MD [address] [place] [address] PCP - General Family Medicine 01/07/24 Goals [...] BE BASED ON THE PRIMARY CLINICAL RECORDS. [facility]. provides no warranty or guarantee of the accuracy or completeness of information in this document.
--- OUTSIDE RECORDS SUMMARY | 2024-12-23 20:31 | XMS_ITS | Encounter Summary ---
Author Organization [facility] Address [address] [place] [address] Care Team Providers Care Pin Sticker Name Role Phone Bella Camara MD Primary Care Provider [phone] Baldomero Padilla MD Primary Care Provider [phone] Encounter Details Date Type Department Care Team (Late st Contact Info) Description 10/07/2023 Clinisync Result Encounter [facility] External Department Unsolicited Amarilis Hong VERIFYING MACHINE OPERATOR [address] [place] [address] Social History Tobacco Use Types Packs/Day Years [...] often do you attend chur ch or restorationism services? Patient declined 10/14/2022 Do you belong to any clubs o r organizations such as jain groups, unions, fraternal or athletic groups, or [...] Recorded Patient Health Questionnaire-2 Score 2 03/02/2023 [facility] of Occupat ional Health - Occupational Stress [...] place to sleep or slept in a jail (including now)? No 10/14/2022 Comments Unknown Sex [...] documented in this encounter Plan of Treatment Not on file documented as of this encounter Procedures Procedure [...] in mGy = . DAP = . Amarilis Hong VERIFYING MACHINE OPERATOR [facility] Final Resul t documented in this encounter Visit Diagnoses Not on filedocumented in this encounter Care Teams Pin Sticker Relationship Specialty Start Date End Date Bella Camara MD [address] [place] [address] PCP - General Family Medicine 09/04/22 01/06/24 Baldomero Padilla MD [address] [place] [address] PCP - General Family Medicine 01/07/24 documented as of this encounter
--- OUTSIDE RECORDS SUMMARY | 2024-12-23 20:31 | XMS_ITS | Clinical Summary ---
Author Organization [facility] Address [address] [place] [address] Care Team Providers Care Agricultural Produce Packer Name Role Phone Baldomero Padilla MD Primary Care Provider [phone] Allergies Active Allergy Reactions Criticality Noted Date [...] Active Additional Information Patient not taking.Reported on 11/23/2024 acetaminophen (Tylenol) 325 MG tablet Active Rimegepant [...] pain 08/19/2024 08/19/2024 Asymptomatic bacteriuria dur ing ([facility]) 08/19/2024 08/19/2024 Abdominal cramping affecting ([facility]) 08/19/2024 08/19/2024 Rotator cuff injury 08/19/2024 08/20/19 Dysuria 02/01/2023 05/26/2023 Acute cough 01/01/2023 05/26/2023 Acute vaginitis 01/01/2023 05/26/2023 Olecranon bursitis of left elbow 09/09/2022 11/25/2022 Encounters Date Type Department Care Team Description 11/23/2024 8:30 AM EDT Office Visit [facility] [address] [place] [address] Baldomero Padilla MD Left hip pain (Primary Dx); Contusion of right knee, initial encounter; Tingling sensation 11/23/2024 Bamboo flowsheet [facility] [address] [place] [address] Baldomero Padilla MD 11/23/2024 Travel from Last 3 Months Immunizations Immunization [...] 01/22/2011 MMR 07/24/2003,10/17/1999 Meningococcal MCV4P 01/22/2011 Novel [id number]-[id number], preservative-free 02/16/2009 OPV 04/10/1999 Pneumococcal Conjugate PCV [...] Used Date Smoking Tobacco: Former Cigarettes 0.3 11.1 S tarted: 04/12/2014 Smokeless Tobacco: Never Tobacco [...] any clubs o r organizations such as jewish groups, unions, fraternal or athletic groups, or [...] Answer Date Recorded Patient Health Questionnaire-2 Score 0 11/23/2024 [facility] - Occupational Stress Questionnaire Answer Date [...] place to sleep or slept in a mcfp (including now)? No 10/14/2022 Comments No Sex and Gender Information Value Date Recorded Sex Assigned at Not on file Legal Sex Female 7:17 PM EDT Gender Identity Not on file Sexual Orientation Not on file Last Filed Vital Signs Vital Sign Reading Time Taken Comments Blood Pressure 122/74 11/23/2024 8:33 AM EDT Pulse 77 11/23/2024 8:33 AM EDT Temperature 36.9 C (98.4 F) 11/23/2024 8:33 AM EDT Respiratory Rate 16 12/17/2022 4:24 PM EDT Oxygen Saturation 99% 11/23/2024 8:33 AM EDT Inhaled Oxygen Concentration - - Weight 68.1 kg (150 lb 3.2 oz) 11/23/2024 8:33 A M EDT Height 175.3 cm (5' 9 ) 11/23/2024 8:33 AM EDT Body Mass Index 22.18 11/23/2024 8:33 AM EDT Plan of Treatment Health Maintenance Due Date Last Done Comments Influenza Vaccine (#1) 2024 3, 01/15/2020, 01/26/2019, Additional history exists Care Teams Agricultural Produce Packer Relationship Specialty Start Date End Date Baldomero Padilla MD [address] [place] [address] PCP - General Family Medicine 01/07/24
--- OUTSIDE RECORDS SUMMARY | 2024-12-23 20:31 | XMS_ITS | Patient Health Record ---
Author Organization [facility] Address [address] [place] [address] Care Team Providers Care Loss Prevention Auditor Name Role Phone PorterSang christensen [facility] [phone] Reason For Referral No Information Plan Of Treatment No Information
--- OUTSIDE RECORDS SUMMARY | 2024-12-23 20:31 | XMS_ITS | Encounter Summary ---
Author Organization [facility] Address [address] [place] [address] Care Team Providers Care Can Filling And Closing Machine Tender Name Role Phone Bella Camara MD Primary Care Provider [phone] Baldomero Padilla MD Primary Care Provider Encounter Details Date Type Department Care Team (Late st Contact Info) Description 07/12/2023 [facility] [address] [facility] [address] Jose Cason DO [address] [place] [address] Acute tear of posterior horn of medial [...] How often do you attend chur or zoroastrian services? Patient declined 10/14/2022 Do you belong [...] Recorded Patient Health Questionnaire-2 Score 2 03/02/2023 [facility] of Occupat ional Health - Occupational Stress [...] place to sleep or slept in a senior living (including now)? No 10/14/2022 Comments Unknown Sex [...] Primary documented in this encounter Care Teams Can Filling And Closing Machine Tender Relationship Specialty Start Date End Date Bella Camara MD [address] [place] [address] PCP - General Family Medicine 09/04/22 01/06/24 Baldomero Padilla MD [address] [place] [address] PCP - General Family Medicine 01/07/24 documented as of this encounter
--- OUTSIDE RECORDS SUMMARY | 2024-12-23 20:31 | XMS_ITS | Encounter Summary ---
Author Organization [facility] Address [address] [place] [address] Care Team Providers Care Manager Community Name Role Phone Bella Camara MD Primary Care Provider [phone] Morenita Corona Unavailable [phone] Baldomero Padilla MD Primary Care Provider [phone] Encounter Details Date Type Department Care Team (Late st Contact Info) Description 11/30/2022 Abstract [facility] [address] [place] [address] Bella Camraa MD [address] [place] [address] Social History Tobacco Use Types Packs/Day Years [...] and heating? Not hard at all 10/14/2022 [facility] of Occupat ional Health - [...] a usp (including now)? No 10/14/2022 Comments Unknown Sex [...] on filedocumented in this encounter Care Teams Manager Community Relationship Specialty Start Date End Date Bella Camara MD [address] [place] [address] PCP - General Family Medicine 09/04/22 01/06/24 Morenita Corona PA [address] [place] [address] PCP - Medical [place] [employer] 09/10/22 06/19/23 Baldomero Padilla MD [address] [place] [address] PCP - General Family Medicine 01/07/24 documented as of this encounter
--- OUTSIDE RECORDS SUMMARY | 2024-12-23 20:31 | XMS_ITS | Encounter Summary ---
Author Organization [facility] Address [address] [place] [address] Care Team Providers Care Shop Clerk Name Role Phone Bella Camara MD Primary Care Provider [phone] Baldomero Padilla MD Primary Care Provider [phone] Encounter Details Date Type Department Care Team (Late st Contact Info) Description 06/24/2023 Abstract [facility] [address] [facility] [place] [address] Jose Cason DO [address] [place] [address] Social History Tobacco Use Types Packs/Day Years [...] How often do you attend chur or anabaptist services? Patient declined 10/14/2022 Do you belong to any clubs o r organizations such as restorationist groups, unions, fraternal or athletic groups, or [...] place to sleep or slept in a residential (including now)? No 10/14/2022 Comments Unknown Sex and Gender Information Value Date Recorded Sex Assigned at Not on file Legal Sex Female 7:17 PM EDT Gender Identity Not on file Sexual Orientation Not on file documented as of this encounter Plan of Treatment Not on file documented as of this encounter Visit Diagnoses Not on filedocumented in this encounter Care Teams Shop Clerk Relationship Specialty Start Date End Date Bella Camara MD [address] [place] [address] PCP - General Family Medicine 09/04/22 01/06/24 Baldomero Padilla MD [address] [place] [address] PCP - General Family Medicine 01/07/24 documented as of this encounter
[2024-12-23 20:49] VITALS: BP 109/61; PULSE 83; TEMP 36.8; O2SAT 100; BMI 22.2
--- NOTE | 2024-12-23 21:20 | XR_ITS ---
[address] [address] Patient Name: LEYDI SHAH MRN: [id number] date: 2000 Sex: F Assigned Patient Location: ER Current Patient Location: Accession/Order Number: [id number] Exam Date: 12/23/2024 21:30 Report Date: 12/24/2024 08:32 At the request of: JOLENE LIZAMA MD Procedure: XR foot RT min 3V 3 views right foot plain film COMPARISON:None HISTORY: Injury of the right toes. ACUTE FINDINGS: None DEGENERATIVE CHANGE: Unremarkable SOFT TISSUE FINDINGS: Unremarkable JOINT EFFUSION: None POSTOP CHANGES: None BONE MINERALIZATION: Adequate XR/XR foot RT min 3V IMPRESSION: No acute displaced fracture Impression dictated by: Pj Rock M.D. 12/24/2024 8:32 AM Dictation Location: [place] [address] Electronically authenticated by: [id number] Date: 12/24/2024 08:32
--- NOTE | 2024-12-23 21:42 | ED.LOWEXI1 ---
HPI HPI - Extremity Injury (Lower) General Chief Complaint: Extremity Injury, Lower Stated Complaint: INJURED 3 TOES ON R FOOT Time Seen by Provider: 12/23/24 21:41 Source: patient Mode of arrival: walk-in History of Present Illness HPI Narrative: dropped wood blocks onto her right foot a couple of times today. has pain of first 3 toes. Increased pain at great toe. Hurts to walk. No weakness or numbness or other injury Related Data Home Medications ?Medication ?Instructions ?Recorded ?Confirmed bupropion HCl 150 mg 24 hr tablet, 150 mg PO BID 06/02/24 07/03/24 extended release duloxetine 60 mg capsule,delayed 60 mg PO QDAY 06/02/24 07/03/24 release buspirone 10 mg tablet 10 mg PO PRN anxiety 07/03/24 Previous Rx's ?Medication ?Instructions ?Recorded ondansetron 4 mg disintegrating 4 mg PO Q8H PRN nausea and 06/08/24 tablet vomiting 48 hours #10 tabs famotidine 20 mg tablet (Pepcid) 20 mg PO BID #20 tabs 11/19/24 ondansetron 4 mg disintegrating 4 mg PO Q8H PRN nausea and 11/19/24 tablet vomiting 4 days #12 tabs Allergies Allergy/AdvReac Type Severity Reaction Status Date / Time penicillin G Allergy Mild Rash Verified 07/03/24 03:56 cefdinir AdvReac Severe Anaphylaxis Verified 07/03/24 03:56 Opioid HPI Opioid Management Most Recent Pain and Opioid Data: Last Pain Scale 7 Today, 20:49 Review of Systems ROS Status of ROS 10 or more systems reviewed and unremarkable except as noted in history and below PFS PFS Social History Smoking status: Current every day smoker Little interest or pleasure in doing things: not at all Feeling down, depressed, or hopeless: not at all Exam Constitutional Vital Signs, click to edit/add: Last Vital Signs Temp 98.2 F 12/23/24 20:49 Pulse 83 12/23/24 20:49 Resp 16 12/23/24 20:49 BP 109/61 12/23/24 20:49 Pulse Ox 100 12/23/24 20:49 O2 Del Method Room Air 12/23/24 20:49 Common normals: no apparent distress, average body habitus, oriented x3, no limitations, healthy appearing, alert and well nourished [facility] Common normals: normocephalic and head/scalp atraumatic Eye Common normals: EOMs intact bilaterally and conjunctivae normal Respiratory Common normals: normal respiratory effort, no retractions, no use of accessory muscles and clear to auscultation bilaterally Cardio Common normals: regular rate, regular rhythm, S1 normal heart sound and S2 normal heart sound Extremity Other: right foot without deformity. mild ecchymosis proximal right subungual mild tenderness of first 3 toes. Mod. tenderness great toe. No swelling Neuro Common normals: oriented x3, CN's II-XII intact bilaterally, moves all extremities and no focal motor deficits Psych Appearance: grossly normal Course Vital Signs Vital signs: Vital Signs Temperature 98.2 F 12/23/24 20:49 Pulse Rate 83 12/23/24 20:49 Respiratory Rate 16 12/23/24 20:49 Blood Pressure 109/61 12/23/24 20:49 Pulse Oximetry 100 12/23/24 20:49 Oxygen Delivery Method Room Air 12/23/24 20:49 Temperature 98.2 F 12/23/24 20:49 Pulse Rate 83 12/23/24 20:49 Respiratory Rate 16 12/23/24 20:49 Blood Pressure 109/61 12/23/24 20:49 Pulse Oximetry 100 12/23/24 20:49 Oxygen Delivery Method Room Air 12/23/24 20:49 MDM - Extremity Injury (Lower) [facility] Narrative Medical decision making narrative: dropped wood onto right foot. now presents with pain. xrays of the right foot per my preliminary review is neg for fracture. Patient advised of the above. Placed in an orthopedic shoe and discharged home Discharge Plan Discharge Chief Complaint: Extremity Injury, Lower Clinical Impression: Contusion of foot, right Patient Disposition: Home, Self-Care Prescriptions / Home Meds: No Action ondansetron 4 mg tablet,disintegrating 4 mg PO Q8H PRN (Reason: nausea and vomiting) 2 Days Qty: 10 0RF buspirone 10 mg tablet 10 mg PO PRN (Reason: anxiety) duloxetine 60 mg capsule,delayed release(DR/EC) 60 mg PO QDAY bupropion HCl 150 mg tablet extended release 24 hr 150 mg PO BID famotidine [Pepcid] 20 mg tablet 20 mg PO BID Qty: 20 0RF ondansetron 4 mg tablet,disintegrating 4 mg PO Q8H PRN (Reason: nausea and vomiting) 4 Days Qty: 12 0RF Print Language: Scottish Instructions: Foot Contusion (ED) Additional Instructions: follow up with your doctor next week for recheck. Use ibuprofen for pain Referrals: EUNICE GALE [Primary Care Provider] - 1 week
[2024-12-23] MEDS: IBUPROFEN 600 MG TABLET PO (22:00)
== END 2024-12-23 22:25 | disposition home or self-care (01) ==
PROVIDERS: Emergency Provider Internal Medicine; PCP Student in an Organized Health Care Education/Training Program
DX: S90.31XA Contusion of right foot, initial encounter (principal); W20.8XXA Other cause of strike by thrown, projected or falling object, initial encounter; F17.200 Nicotine dependence, unspecified, uncomplicated
CPT/HCPCS: 73630; 99283

== ENCOUNTER 2025-03-16 17:02 | Emergency (ER) | payer SELFPAY ==
--- OUTSIDE RECORDS SUMMARY | 2011-01-22 08:50 | XMS_ITS | Continuity of Care Document ---
Author Organization [facility] Address [address] [place] [address] Phone Care Team Providers Care Distribution Manager Name Role Phone Isai Vazquez Unavailable Unavailable Procedures Procedure Date FLU VACCINE, 3 YRS & >, IM Menveo TDAP VACCINE >7 IM PREVENTIVE COUNSELING, INDIV Advance Directives Directive Yes / No Effective Date File Name Resuscitation Not Answered N/A N/A Life Support Not Answered N/A N/A Intubation Not Answered N/A N/A Antibiotics Not Answered N/A N/A IV Fluid Support Not Answered N/A N/A Tube Feed Not Answered N/A N/A Other Directive N/A N/A WARNING:The information contained in this section is historical and is provided for information only and does not constitute a legal document or any assurance that the information is still accurate. Please verify the information with the rodriguez of the legal document before using it for clinical purposes. Encounters Encounter Description Practice Location Reason(s) For Visit Diagnoses Date Provider Providers Copied on Encounter PREVENTIVE COUNSELING, INDIV [facility], [address], [place], [id number], [place] tel:[phone] [facility] Influenza VaccineNeed for prophylactic vaccination with combined diphtheria-te tanus-pertuss is (DTP) (DTaP) vaccineNeed for prophylactic vaccination and inoculation against other specified single bacterial disease 3 [address] Tenzin Reyes. [address], [place], [id number] , [place]. tel:[phone] Family History Family Member Type Diagnosis Age At Onset No Information Immunizations Vaccine Date Status Comments Tdap administered Source: New Imm unization Record MCV4 (11-55 yrs) administered Source: New Immunization Record Flu (split) (3 yrs or older) administered Source: New Immunization Record Payers Payer name Insurance type Covered green party ID Authoriza tion(s) No Information Social History Type Description Quantity Date Captured Comments Alcohol Use Details Unknown Caffeine Use Details Unknown Tobacco Use Status No Information Smoking Status No Information Sex Female Sexual Orientation Straight or heterosexual Gender Identity Female Chief Complaint And Reason For Visit No Information Reason For Referral Reason For Referral No Information History Of Present Illness Encounter Date Complaint History Of Prese nt Illness No Information Functional Status Date Functional Assessmen t No Information Instructions Date Instruction Additional Infor mation No Information Assessments Type Assessment Date No Information Patient Care Teams Name Effective Dates (start - stop) Status Members No Information
--- OUTSIDE RECORDS SUMMARY | 2025-03-07 11:10 | XMS_ITS | Continuity of Care Document ---
Author Organization [facility] Address [address] [place] [address] Phone Care Team Providers Care Clerk Entry Level Name Role Phone Baldomero Padilla MD Primary Care Provider [phone] Prabhjot Sharma PA-C Emergency Provider Care Teams Patient Care Team Team Status: Active Member Role/Relationship Status Dates Baldomero Padilla MD Primary Care Provider Active Patient Care Team Team Status: Inactive Member Role/Relationship Status Dates Baldomero Padilla MD Primary Care Provider Active S tart: March 07, 2025 End: March 07, 2025DePetra Moe ProviderActiveStart: March 07, 2025 End: March 07, 2025 Chief Complaint and Reason for Visit Chief Complaint Admit Date lt shoulder pain, neck pain February 2:15pm Allergies, Adverse Reactions, Alerts Allergen Type Severity Reaction Last Updated Verified Status cefdinir Allergy Mild Rash March 07, 2025 2:18pm Yes Active Penicillins Allergy Unknown Hives March 07, 2025 2:18pm Y es Active Social History Smoking Status Status Start Date End Date Date of Observa tion Never smoked tobacco (finding) March 07, 2025 3:50pm Observation Status Observation Response Date of Response Legal Sex Female (finding) [facility] 2000Pregnancy StatusUnknown if patient is Nov2024 Family History Relationship Condition Age at Onset Recorded Date/T fadi grandparent Unknown grandparentDiabetes mellitusUnknown Problems Active Problems Problem Diagnosis/Recorded Date Onset Date Stat us Acute left otitis media September 17, 2021 2:30am Unknown Active UTI (urinary tract infection) July 20, 2017 4:16pm Unknown Active Strain of left trapezius muscle March 07, 2025 3: 47pm Unknown Active Knee sprain July 25, 2017 8:54pm Unknown Acti ve Ankle sprain February 29, 2020 10:36am Unknown Active Strain of lumbar region December 23, 2019 9:26am Un known Active Influenza A April 08, 2022 12:54am Unknown Active Fever April 12, 2022 11:39pm Unknown Ac tive Marijuana abuse January 16, 2019 11:43pm Unknown Active Rotator cuff injury September 18, 2019 9:18pm Unknown Active Upper respiratory infection January 31, 2020 5:10pm Unknown Active Upper respiratory infection March 18, 2021 10:51am Unknown Active URI (upper respiratory infection) December 13, 2018 3:24pm Unknown Active Anxiety October 11, 2018 2:57pm Unknown Active Cephalalgia July 19, 2017 3:19pm Unknown Activ e Headache March 18, 2021 10:51am Unknown A ctive Tetrahydrocannabinol (THC) u se disorder, mild, abuse June 05, 2018 2:42am Unknown Active Asymptomatic bacteriuria dur ing September 03, 2018 1:25pm Unknown Active Vomiting during August 09, 2018 3:05pm Unkn own Active Tobacco abuse disorder June 05, 2018 2:42am Unkn own Active Pseudoseizures July 20, 2017 4:16pm Unknown Ac tive Abdominal cramping affecting September 03, 2018 1:25pm Unknown Active Bilateral leg pain October 11, 2018 1:34am Unknown Active Pseudoseizure October 29, 2018 12:49pm Unknown Act nohemi Anxiety and depression June 05, 2018 2:42am Unkn own Active Suicidal intent June 05, 2018 2:41am Unknown Active Acetaminophen overdose June 05, 2018 2:41am Unkn own Active Severe major depression June 05, 2018 1:10pm Unk nown Active Chest pain April 12, 2022 11:39pm Unknown Ac tive Influenza May 10, 2017 11:55am Unknown A ctive Influenza April 12, 2022 11:39pm Unknown Ac tive Contusion of hand, right October 26, 2021 11:51am Unkno wn Active Inactive/Resolved Problems Problem Diagnosis/Recorded Date Onset Date Stat Acute lumbar back pain January 06, 2024 7:40pm Unk nown Resolved Medications Medication Status Dose Units Route Directions Qty Days Refills S tart Date Stop Date End Date Reason(s) Instructions Adherence Norethindrone-Ethin Estradio l (Disha (28)) 0.4-35 mg-mcg tablet Discontinued 1 TAB PO Daily May 10, 2017 12:00amApril 2017 8:23pmOseltamivir (Tamiflu) 75 mg uvhfulcUhiynqmugaqt03RSYVQfajp jgxdy9513Nmbgkrs 2017 12:00amFebruary 2017 12:00amFebruary 2017 12:04amBenzonatate (Tessalon Perles) 100 mg tnqmjkcSypcflkbhsme005CDZZGrxbg times iabwz110Deqautf 2017 12:00amApril 2017 11:58amIbuprofen 600 mg qvhfzwZhmpqaptunwc278XKRWuzfjz 6 to 8 hours as needed for wnng028Hpbdekw2017 12:00amApril 2017 11:58amDuloxetine 20 mg Capsule,Delayed Release(Dr/Ec)Oorwtivarhsw98AWXHQdxhfRfxuu 2017 11:00pm July 25, 2017 8:23pmNaproxen 500 mg pogqhhMtbzlopittno299FQQCRcypj qyivd889 July 18, 2017 11:00pmApril 2017 8:23pmadminister with food or milk Ibuprofen 600 mg ndxpbjLrlusornlcht938QEWAO2H as needed for iyxi852Epnem 2017 11:00pmJuly 2017 12:25pmFerrous Sulfate 325 mg (65 mg iron) Tablet Fuhlifuuaplc443SSNRDwgxe dailyJuly 2017 11:00pmJanuary 2018 2:35am Vitamin R5Insfktzgqiof61950WULHFNMfriyNlwx 2017 11:00pmJanuary 2018 2:83nyLcqlihezMzolsvsqxpda3ZKMHCKzyksZooj 2017 11:00pmJanuary 2018 2:35amIbuprofen 800 mg edzsikLrclihainsdu719KOCWFxujd times daily as needed for jbyw570Qjuxxgq 2018 12:00amFebruary 2018 8:24pmCephalexin (Keflex) 500 mg xlgtqdsKtcecicugozl732FZTRIldiy qefxg2469Zetfvha 2018 12:00am June 04, 2018 8:24pmPromethazine (Phenergan) 25 mg suppositoryDiscontinued 03WXGEM5P as needed for nausea and repqakly80Pxj 2018 11:00pmMay 2018 11:07amPromethazine 25 mg isfdtmIyqcwxcfwbjz03XQLKE3U as needed for nausea and wzrkifds62Amm 6th, 2019 11:00pmy 2018 11:07amHydroxyzine Pamoate (Vistaril) 50 mg jwyuoaoKeszanmfokya77EJUEF0L as needed for ygdglos733Xavq 2018 11:00pmJuly 2018 11:32amIbuprofen 800 mg hzxakyFdmyebkaxvnq227JTLH every 6 to 8 hours as needed for ryhj147Qvrfrajz 2018 12:00amJun2019 8:43pmDuloxetine (Cymbalta) 20 mg capsule,delayed release(DR/EC) Awylececbgdo08BDCPCshd611Phdoqktq 2018 12:00amJuly 2021 11:02am Docusate Sodium 100 mg AppdomcGkdkxftgtnpz083LVANMmhqc at yezhmmn102Lkykgpsn 2018 12:00amJun2019 8:43pmIbuprofen 800 mg HkyayxNmtlcmcbjvxc817ZA POThree times daily as needed for Dzjo245Ffch 2019 11:00pmNovember 2019 9:26amMethocarbamol 500 mg jqgzxwXkaydghbsqpb707BDKNTxuqe times daily as needed for muscle cvoqg876Ozvfdlrjc 2019 9:28amNovember 2019 9:26am Etonogestrel (Nexplanon) 68 mg PsleniqBswwop9OGLDTZCBZGAWKAPZZjimMtimdnvk 2019 12:00amUnknownIbuprofen 600 mg myotccOovxmnctlihv503WFRKSrbfv times daily14 0February 29, 2020 12:00amDecember 2020 9:50amDuloxetine (Cymbalta) 20 mg capsule,delayed release(DR/EC)Udgoxi85ZYXYOvbadXmeo 2021 11:02amUnknown Ondansetron 4 mg tablet,clwxsoshujmpztHlzasw1TRFIK4Y as needed for nausea and umsdskgb913Jwqrhmwb 2021 12:00amUnknownBenzonatate 200 mg tfeaaryPvipny692 MGPOThree times daily as needed for hfesn818Vtsfugag 2021 12:00amUnknown Oseltamivir (Tamiflu) 75 mg rfcnozrKaktfq00DUHJU05G6707Fujriud 2022 12:00am UnknownOndansetron Hcl 4 mg sfrttdKgaeiz2RYSOI5S as needed for nausea and hkjjmpzx8380Kboomtq 1st, 2023 12:00amUnknownSucralfate (Carafate) 1 gram tablet Dwuqdw5BOXWHqvgs daily as needed for abdominal kgmigrwjzs8259Ynbbjhb 1st, 2023 11:39pmUnknownCyclobenzaprine 10 mg aqpoddHkbghg85YSUYQhspj 12 scxwa865KtqmwqdfMarch 07, 2025 12:00amUnknownLidocaine 4 % adhesive patch,wlhtdabyuUhqpfm4HUOHZ TOPICALDaily as needed for eayf272IggttzduMarch 07, 2025 12:00amUnknown Nitrofurantoin Monohyd/M-Cryst (Macrobid) 100 mg txxpxudCigqndkzkarm3SFAGTK74B87 0April 2017 11:00pmApril 2017 8:23pmadminister with a meal/food; swallow whole; do not open, crush, dissolve , or chewIbuprofen 600 mg tablet Osrjtlufkcvw097KAGWSfupq times daily as needed for ufyf038WodbsrdpFebruary 22, 2018 11:44pmDecember 2017 7:19pmPromethazine 25 mg iaskjrAootepqrhvpg34RKKRM9M as needed for nausea and kplyxqsa845Mfcpvhge 2nd, 2018 12:00amJanuary 2018 2:35amMetoclopramide Hcl 10 mg opkufqZwglqamjdjbc40BICTC0W as needed for nausea and ecusahsh932Pdeyqfbn 2017 8:37pmJanuary 2018 2:35amNicotine (Polacrilex) (Nicorelief) 2 mg PlzDkexrcienora8ZWGAJKMAUorrp 2 hours as needed for Nicotine Qlwggodi066Tlxyabre 2018 12:00amMarch 2018 7:44pm Duloxetine 60 mg Capsule,Delayed Release(Dr/Ec)Qmdacvcqzsje28EHGTFrbgg604 June 09, 2018 12:00amApril 2018 1:38pmPromethazine 25 mg tablet Deeahyjcjxpi31AMZBDrwsj times daily as needed for nausea and xhjnajvn935Vvmho 2018 11:00pmMay 2018 11:07amPnv No.95-Ferrous Fumarate-Fa () 28 mg iron- 800 mcg EyeeviJunwrsyizqtj7WWCMIFphirTkr 2018 11:00pmJune 2019 8:43pmCephalexin (Keflex) 500 mg ooyefzcGzuaxkoizhpm595KEVVSypwf xoyed7168 September 02, 2018 11:00pmMay 2018 10:03pmTramadol (Ultram) 50 mg tablet Wqsavqlyvamc76KAZRI6E as needed for mymj803Ejllfp 2018 11:00pmAugust 2018 3:11pmUnspecified abdominal painNitrofurantoin Monohyd/M-Cryst (Macrobid) 100 mg tchdxvmBwosltcxjawn818XPCUZ52T432Fttkib 2018 11:00pmAugust 2018 3:12pmmust administer with a meal/foodAlbuterol Sulfate 90 mcg/actuation HFA aerosol dkypnlpOgsfmctzubdc3MZEULCNSEQMQHUEWYM 4-6 HOURS as needed for shortness of breath or atygpnbq974Idvrvcdxv 2nd, 2019 11:00pmJune 2019 8:43pmAlbuterol Sulfate 90 mcg/actuation HFA aerosol ejbgjaeEztrpwbuzisd2RMHU INHALATIONFour times daily as needed for shortness of breath or bodivmda974 January 31, 2020 5:10pmNovember 2019 9:26amEtonogestrel-Ethinyl Estradiol (Nuvaring) 0.12-0.015 mg/24 hr WhkwOlmadciinwbn1CLQ RINGVAGINALEVERY 4 WEEKSDe2020 12:00amDecember 2021 11:24pmPromethazine 25 mg lkegjcAzbtxlddjepc00WSLVAixp times daily as needed for nausea and ufthzysv677 March 18, 2021 10:51amJuly 2021 11:03amIbuprofen 600 mg tablet Fklaprqnpken943YPWZM1G as needed for lcdn058Zwiv 7th, 2022 11:00pmJuly 2021 11:03amCefdinir 300 mg kqswuolZahlzocvktfy309REYVUcpgk vlosl65177Indo 7th, 2022 11:00pmJuly 2021 11:03amPrednisone 20 mg agyjxhZhkxqy00NSNEDtquz492 January 05, 2024 11:00pmadminister with food or milkUnknown Immunizations Immunization Event Date Not Given Reason Dose Number Patient Sitter Lot Number Reason(s) Given Vaccine Information Statement (VIS) Detail Administration Location Quadrivalent Influenza June 06, 2018 [id number][facility] CtrTetanus, Diphtheria, Pertussis (Tdap)June 21, [id number] CtrTetanus, Diphtheria, Pertussis (Tdap)March 03, 2019[facility] Vital Signs Vital Reading Result Reference Range Collection Date/Time Height 69 [in_i] March 07, 2025 2:01ztDmwgwp98.80 kgNovember 2024 2:22pmBody Rkvvvtprilz00.9 [degF]97.6-99.0March 07, 2025 2:22pmHeart Rate64 /cve63-993 March 07, 2025 2:22pmRespiratory rate18 /dnh16-51Jcwgsiov 26th, 2025 2:22pm Oxygen saturation by Pulse pvbzgucq30 %95-100March 07, 2025 2:22pmBP Ghbxsooq238 mm[Hg]100-140Nov2024 2:22pmBP Mjqqgfeic08 mm[Hg]60-100 March 07, 2025 2:22pm Advance Directives Advance Directive Response Recorded Date/ Time Advance Directives No February 08, 2017 12:49pm Insurance Providers Guarantor Maury Collazo Address [address] [place] [id number] Info.Home Phone: Coverage Status Update:2025 Payer Group Member ID Coverage Type Subscriber Relationship to Subscriber Effective Date Expiration Date O Id: [id number] F Fox Id: [id number] [address] [place] [address] Home Phone: [employer] [place] [employer] Id: [id number] K Fox Id: [id number] [address] [place] [address] Home Phone: Email: [email or web address] [address] [address] [place] [address] Work Phone: [facility] Federal [id number] Shawn Collazo Id: [id number] [address] [place] [address] Home Phone: Email: [email or web address] Encounters Encounter Location(s) Arrival/Admit Date Discharge/Departure Date Discharge/Departure Disposition Provider(s) Departed Emergency -Emergency Room March 07, 2025 2:15pm March 07, 2025 4:09pm Discharged to home care or self care (routine discharge) Plan of Treatment Future Tests Future scheduled test information is unavailable Pending Tests Pending diagnostic test information is unavailable Future Visits Future appointment information is unavailable Future Procedures Future procedure information is unavailable Future Medications Future medication information is unavailable Patient Instructions Instruction Admit Date Muscle strain March 07, 2025 2:15pm Hospital Discharge Instructions Additional Instructions You were seen and evaluated in the ED for a musculoskeletal injury. It is important to treat your symptoms with RICE therapy. This consists of Resting when available, Icing the affected area. Continue to use Tylenol and other anti-inflammatories such as ibuprofen, naproxen, diclofenac, etc It is very important that you follow up with your primary care provider in the next 1-2 days unless instructed to do otherwise. If you do not have a primary care provider, you can contact the [facility] clinic and ask about being established for primary care services. If you require specialist follow up, such as with an orthopedic physician, disintegrator feeder, urologist, or other medical specialty, you should contact the specialty clinic as soon as possible to schedule a follow up appointment. If you are established with a specialist, you can contact your preferred physician for follow up. If you are not already established with the specialist you need, you may have contact information provided to you with these discharge instructions. If you are being prescribed medications, take exactly as prescribed. Antibiotics, if prescribed, should be taken until the entire course is completed. You should not have left over antibiotics. Continue to take any previously prescribed home medications unless instructed otherwise. If you are experiencing fever or mild to moderate pain, you should first take Tylenol or ibuprofen available knjb-trm-poaifsg. Medications, if prescribed to treat pain from the emergency department, are intended to provide relief for severe pain that is not relieved by other methods of pain relief, you should use these medications cautiously as many are known to cause sedation/sleepiness, increased risk for falls, and other effects such as constipation. If your symptoms worsen please return to the ED or if you have any other concerns
[2025-03-16 17:28] VITALS: BP 113/76; PULSE 106; TEMP 36.8; O2SAT 98; BMI 23.3
--- NOTE | 2025-03-16 17:41 | ED.GENADUL1 ---
HPI HPI - General Adult General Chief complaint: Nausea/Vomiting/Diarrhea Stated complaint: VOMITING NON STOP Time Seen by Provider: 03/16/25 17:31 Source: patient Mode of arrival: walk-in History of Present Illness HPI narrative: 24-year-old female presented to the emergency department for nausea and vomiting. She has not had diarrhea and her symptoms began this morning. No hematemesis or fever or known ill contacts. She states she has been able to keep any liquids down today. Related Data Home Medications ?Medication ?Instructions ?Recorded ?Confirmed bupropion HCl 150 mg 24 hr tablet, 150 mg PO BID 06/02/24 03/16/25 extended release buspirone 10 mg tablet 10 mg PO DAILY PRN anxiety 07/03/24 03/16/25 tizanidine 4 mg capsule 4 mg PO BID PRN muscle spasticity 03/16/25 03/16/25 trazodone 50 mg tablet 50 mg PO DAILY 03/16/25 03/16/25 Previous Rx's ?Medication ?Instructions ?Recorded ondansetron 4 mg disintegrating 4 mg PO Q6H PRN nausea and 03/16/25 tablet vomiting #20 tabs Allergies Allergy/AdvReac Type Severity Reaction Status Date / Time penicillin G Allergy Mild Rash Verified 03/16/25 17:28 cefdinir AdvReac Severe Anaphylaxis Verified 03/16/25 17:28 Opioid HPI Opioid Management Most Recent Opioid Data: Last Pain Scale 6 Today, 17:28 Review of Systems ROS Narrative A ten point review of systems is negative except as noted above. PFSH PFSH Social History Smoking status: Current every day smoker Little interest or pleasure in doing things: not at all Feeling down, depressed, or hopeless: not at all Exam Narrative Exam Narrative: Nurses note and vital signs reviewed General:The patient appears in no acute distress Skin:Warm, dry, no pallor noted.There is no rash noted. Head:Normocephalic, atraumatic Eye: Normal conjunctiva, no drainage Ears, Nose, Mouth, and Throat: oral mucosa is moist. Nares patent. Cardiovascular:Regular Rate and Rhythm Respiratory:Patient is in no distress, no accessory muscle use, lungs are clear to auscultation, no wheezing, rales or rhonchi Back:non-tender GI: Soft and nontender Musculoskeletal: The patient has no evidence of calf tenderness, no pitting edema, symmetrical pulses noted bilaterally Neurological:A&O, normal speech Psychiatric:Cooperative Constitutional Vital Signs, click to edit/add: Last Vital Signs Temp 98.2 F 03/16/25 17:28 Pulse 106 H 03/16/25 17:28 Resp 16 03/16/25 17:28 BP 113/76 03/16/25 17:28 Pulse Ox 98 03/16/25 17:28 O2 Del Method Room Air 03/16/25 17:28 Course Vital Signs Vital signs: Vital Signs Temperature 98.2 F 03/16/25 17:28 Pulse Rate 106 H 03/16/25 17:28 Respiratory Rate 16 03/16/25 17:28 Blood Pressure 113/76 03/16/25 17:28 Pulse Oximetry 98 03/16/25 17:28 Oxygen Delivery Method Room Air 03/16/25 17:28 Temperature 98.2 F 03/16/25 17:28 Pulse Rate 106 H 03/16/25 17:28 Respiratory Rate 16 03/16/25 17:28 Blood Pressure 113/76 03/16/25 17:28 Pulse Oximetry 98 03/16/25 17:28 Oxygen Delivery Method Room Air 03/16/25 17:28 Medical Decision Making MDM Narrative Medical decision making narrative: The patient feels much better after normal saline and IV Zofran and she is able to be discharged home with a prescription for Zofran. Blood work is nonspecific. She is not . Treatment diagnosis and follow-up were discussed with the patient. Differential Diagnosis Differential Diagnosis: Nausea and vomiting, gastroenteritis, dehydration Lab Data Lab results reviewed: Yes I reviewed the patient's lab results Labs: Lab Results 03/16/25 03/16/25 Range/Units 17:35 17:55 WBC 7.5 (4.0-11.0) 10^3/uL RBC 4.88 (4.20-5.40) 10^6/uL Hgb 14.9 (12.0-16.0) g/dL Hct 44.5 (36.0-48.0) % MCV 91.2 (81.0-99.0) fL MCH 30.5 (26.7-34.0) pg MCHC 33.5 (29.9-35.2) g/dL RDW 12.6 (11.0-15.0) % Plt Count 186 (150-450) 10^3/uL MPV 12.7 (9.5-13.5) fL Seg Neuts % (Manual) 86.0 H (43.0-75.0) Band Neutrophils % 1.0 (0-5) % Lymphocytes % (Manual) 3.0 L (20.5-60.0) % Monocytes % (Manual) 7.0 (1.7-12.0) % Eosinophils % (Manual) 3.0 (0.9-7.0) % Basophils % (Manual) 0.0 L (0.2-2.0) % Neutrophils # (Manual) 6.45 (1.4-6.5) 10^3/uL Band Neutrophils # 0.1 (0.0-0.3) 10^3/uL Lymphocytes # (Manual) 0.22 L (1.20-3.80) 10^3/uL Monocytes # (Manual) 0.52 (0.30-0.80) 10^3/uL Eosinophils # (Manual) 0.22 (0.00-0.70) 10^3/uL Basophils # (Manual) 0.00 (0.00-0.10) 10^3/uL Sodium 141 (136-145) mmol/L Potassium 3.6 (3.5-5.1) mmol/L Chloride 104 (98-107) mmol/L Carbon Dioxide 27.4 (21.0-32.0) mmol/L Anion Gap 13.2 BUN 7.0 (7.0-18.0) mg/dL Creatinine 0.77 (0.55-1.02) mg/dL Est GFR ( Amer) >60 (>=60 mL/min/1.73m^2) Est GFR (Non-Af Amer) >60 (>=60 mL/min/1.73m^2) BUN/Creatinine Ratio 9.1 Glucose 98 (74-106) mg/dL Calcium 9.4 (8.5-10.1) mg/dL Serum HCG, Qual Negative (NEGATIVE) Urine Color Yellow (YELLOW) Urine Clarity Clear (CLEAR) Urine pH 6.0 (5.0-9.0) Ur Specific [place] 1.025 (1.005-1.025) Urine Protein Negative (NEG/TRACE) mg/dL Urine Glucose (UA) Negative (NEGATIVE) mg/dL Urine Ketones 15 A (NEGATIVE) mg/dL Urine Occult Blood Small A (NEGATIVE) Urine Nitrite Negative (NEGATIVE) Urine Bilirubin Negative (NEGATIVE) Urine Urobilinogen 0.2 (0.2-1.0) EU/dL Ur Leukocyte Esterase Negative (NEGATIVE) Urine RBC 2-5 A (0-2) #/HPF Urine WBC None seen (NONE SEEN) #/HPF Ur Squamous Epith Cells Few A (NONE/RARE) #/LPF Urine Crystals None seen (None Seen) #/HPF Urine Bacteria Trace A (NONE SEEN) #/HPF Urine Casts None seen (NONE SEEN) #/LPF Urine Mucus Small A (NONE SEEN) Ur Culture Indicated? No Discharge Plan Discharge Chief Complaint: Nausea/Vomiting/Diarrhea Clinical Impression: Nausea & vomiting Patient Disposition: Home, Self-Care Time of Disposition Decision: 18:47 Condition: Good Mode of Transportation: Private Vehicle Prescriptions / Home Meds: New ondansetron 4 mg tablet,disintegrating 4 mg PO Q6H PRN (Reason: nausea and vomiting) Qty: 20 0RF No Action buspirone 10 mg tablet 10 mg PO DAILY PRN (Reason: anxiety) bupropion HCl 150 mg tablet extended release 24 hr 150 mg PO BID trazodone 50 mg tablet 50 mg PO DAILY tizanidine 4 mg capsule 4 mg PO BID PRN (Reason: muscle spasticity) Print Language: Divehi Instructions: Acute Nausea and Vomiting (ED) Referrals: EUNICE GALE [Primary Care Provider] - 1 week
[2025-03-16] MEDS: 0.9 % SODIUM CHLORIDE 1,000 ML 1000 ML IV (18:06)
[2025-03-16 18:10] LABS: Hematocrit 44.5 % (36.0-48.0); Hemoglobin 14.9 g/dL (12.0-16.0); Mean Corpuscular HGB Conc 33.5 g/dL (29.9-35.2); Mean Corpuscular Hemoglobin 30.5 pg (26.7-34.0); Mean Corpuscular Volume 91.2 fL (81.0-99.0); Platelet Count 186 10^3/uL (150-450); Red Blood Count 4.88 10^6/uL (4.20-5.40); White Blood Count 7.5 10^3/uL (4.0-11.0)
[2025-03-16 18:11] LABS: Glucose Urine UA NEGATIVE (NEGATIVE)
[2025-03-16 18:22] LABS: Anion Gap 13.2; Blood Urea Nitrogen 7.0 mg/dL (7.0-18.0); Calcium 9.4 mg/dL (8.5-10.1); Carbon Dioxide 27.4 mmol/L (21.0-32.0); Chloride 104 mmol/L (98-107); Estimated GFR (African America >60 (>=60 mL/min/1.73m^2); Estimated GFR (Non-African Ame >60 (>=60 mL/min/1.73m^2); Glucose 98 mg/dL (74-106); Potassium 3.6 mmol/L (3.5-5.1); Sodium 141 mmol/L (136-145)
[2025-03-16 18:29] LABS: Band Neutrophils Absolute 0.1 10^3/uL (0.0-0.3); Basophils Abs Manual 0.00 10^3/uL (0.00-0.10); Basophils Percent Manual 0.0 % (0.2-2.0); Eosinophils Absolute Manual 0.22 10^3/uL (0.00-0.70); Eosinophils Percent Manual 3.0 % (0.9-7.0); Lymphocytes Absolute Manual 0.22 10^3/uL (1.20-3.80); Lymphocytes Percent Manual 3.0 % (20.5-60.0); Monocytes Absolute Manual 0.52 10^3/uL (0.30-0.80); Monocytes Percent Manual 7.0 % (1.7-12.0); Segmented Neut Absolute Manual 6.45 10^3/uL (1.4-6.5); Segmented Neutrophils % Manual 86.0 (43.0-75.0)
[2025-03-16 18:33] LABS: Cast Seen? NONE SEEN #/LPF (NONE SEEN); Crystals Seen? None Seen #/HPF (None Seen); Urine Culture Indicated NO
--- OUTSIDE RECORDS SUMMARY | 2025-03-16 18:38 | XMS_ITS | CCD ---
Author Organization [facility] Care Team Providers Care Membership Secretary Name Role Phone MISC, DOCTOR Primary Care [...] Primary Care Provider TREVON Hall Emergency Provider [phone] Bella Camara MD Primary Care Provider Miracle Padilla MD Primary Care Provider [phone] Usman Murillo MD Attending Provider [phone] Cuco [facility] Attending Unavailable Miracle Padilla Primary Care Unavailable Cuco Hall Admitting Unavailable Usman Murillo Admitting Unavailable Usman Murillo Attending Unavailable MIRACLE PADILLA Attending Unavailable BELLA CAMARA Attending Unavailable MAME JIMÉNEZ Attending Unavailable MIRACLE PADILLA Attending Unavailable MIRACLE PADILLA Attending Unavailable MIRACLE PADILLA Attending Unavailable Bella Camara MD Primary Care Provider Unavailable Unavailable Unavailable Allergies Allergy ClassificationReported Allergen(s)Allergy TypeDate of OnsetReaction(s) Facility (4 sources)PenicillinsDrug allergy (disorder)99-07-0975[facility] ([facility] sources)Penicillin; Translations: [penicillin][facility] ([facility])cefdinirDrug [id number] (20 sources)PenicillinsDrug Ioxsuxa41-12-1029WopdLLM[facility] (1 source)No Known Medication Allergies; Translations: [No Known Medication Allergies]Propensity to adverse reactions (disorder)[facility] (1 source)PenicillinsDrug allergy (disorder)15-29-7130[facility] Medications Current Medications MedicationDrug Class(es)DatesSig (Normalized)Sig (Original)acetaminophen 325 mg oral tablet (20 sources)acetaminophen (Tylenol) 325 MG tablet Activealbuterol 0.83 mg/ml inhalation solution (20 sources)beta2-Adrenergic AgonistStart: 01-18-2023 End: 04-55-2048bxivcavwc (2.5 MG/3ML) 0.083% nebulizer solution Indications: Shortness of breath Take 3 mL (2.5 mg) by nebulization every 6 (six) hours if needed for wheezing. 75 mL 11 01/18/2023 ActiveStart: 78-26-9361lknr 2 puff(s) by inhalation every four hoursalbuterol HFA 90 mcg/act inhaler Indications: Acute cough Inhale 2 puffs every 4 (four) hours if needed (cough). 18 g 3 01/01/2023 ActiveStart: 01-31-2020 End: 27-02-3038rtpd 1 puff(s) by inhalation four times daily as needed for wheezingAlbuterol Sulfate 90 mcg/actuation HFA aerosol inhaler Discontinued 2 PUFF INHALATION Four times daily as needed for shortness of breath or wheezing January 31, 2020 6:10pm February 29, 2020 10:26amStart: 12-13-2018 Albuterol Sulfate Active 2 INH Inhalation EVERY 4-6 HOURS December 13, 2018 4:27pmStart: 12-13-2018 End: 58-34-7166Ssbdeqgpa Sulfate 90 mcg/actuation HFA aerosol inhaler Discontinued 2 INH INHALATION EVERY 4-6 HOURS as needed for shortness of breath or wheezing December 13, 2018 12:00am September 18, 2019 9:43pmbenzonatate 200 mg oral capsule (8 sources)Non-narcotic AntitussiveStart: 54-76-4075uwrm 1 capsule by mouth three times daily as needed for coughBenzonatate 200 mg capsule Active 200 MG PO Three times daily as needed for cough March 1:00amStart: 05-10-2017 End: 13-50-0246bfue 1 capsule by mouth three times dailyBenzonatate (Tessalon Perles) 100 mg capsule Discontinued 100 MG PO Three times daily May 10, 2017 1:00am July 19, 2017 12:58pm24 hr buPROPion hydrochloride 150 mg extended release oral tablet (20 sources)AminoketoneStart: 22-95-5059tszb 1 tablet by mouth twice daily buPROPion XL (Wellbutrin XL) 150 MG 24 hr tablet Indications: Anxiety 1 tab po bid 180 tablet 1 08/10/2024 ActiveStart: 11-10-2023 End: 89-95-7472laSDRUvdw XL (Wellbutrin XL) 150 MG 24 hr tablet Indications: Anxiety 2 tabs in am, 1 tab in pm 270tablet 1 12/31/2023 08/10/2024 Discontinued (Reorder)busPIRone hydrochloride 10 mg oral tablet (20 sources)Start: 11-10-2023 End: 88-99-1735kosh 1 tablet by mouth in the morning, then take 1 tablet by mouth in the evening, then take 1 tablet by mouth at bedtimebusPIRone (Buspar) 10 MG tablet Indications: Anxiety Take 1 tablet (10 mg) by mouth in the morning and 1 tablet (10 mg) in the evening and 1 tablet (10 mg) before bedtime. 90 tablet 3 08/10/2024 ActiveStart: 50-18-5164ffat 1 tablet by mouth in the morning, then take 1 tablet by mouth in the evening, then take 1 tablet by mouth at bedtimebusPIRone (Buspar) 10 MG tablet Indications: Anxiety Take 1 tablet (10 mg) by mouth in the morning and 1 tablet (10 mg) in the evening and 1 tablet (10 mg) before bedtime. 90 tablet 1 05/26/2023 ActiveStart: 03-02-2023 End: 49-33-9305kvcw 1 tablet by mouth in the morningbusPIRone (Buspar) 5 MG tablet Indications: Anxiety Take 1 tablet (5 mg) by mouth in the morning and 1 tablet (5 mg) before bedtime. 60 tablet 2 03/02/2023 05/26/2023 Discontinued (Reorder)DULoxetine 60 mg delayed release oral capsule (20 sources)Serotonin and Norepinephrine Reuptake InhibitorStart: 09-08-2022 End: 04-15-0211ncda 1 capsule by mouth in the morningDULoxetine (Cymbalta) [address] capsule Indications: Anxiety Take 1 capsule (60 mg) by mouth in the morning. Do not crush or chew. . 100 capsule 3 05/26/2023 05/25/2024 ActiveStart: 03-03-2019 End: 08-17-8338aole 1 capsule by mouth once dailyDuloxetine (Cymbalta) 20 mg capsule,delayed release(DR/EC) Active 20 MG PO Daily October 26, 2021 12:02pm Start: 06-09-2018 End: 06-69-6754bceh 1 capsule by mouth once dailyDuloxetine 60 mg Capsule,Delayed Release(Dr/Ec) Discontinued 60 MG PO Daily June 09, 2018 1:00am August 09, 2018 2:38pmStart: 07-19-2017 End: 75-61-1284youg 10 mg by mouth once dailyDuloxetine 20 mg Capsule,Delayed Release(Dr/Ec) Discontinued 10 MG PO Daily July 19, 2017 12:00amApr2017 9:23pmStart: 07-19-2017 End: 05-27-4516cgun 10 mg by mouth once dailyDuloxetine Discontinued 10 MG PO Daily July 19, 2017 12:00am July 25, 2017 9:23pm24 hr etodolac 500 mg extended release oral tablet (19 sources)Nonsteroidal Anti-inflammatory DrugStart: 09-15-2023 End: 89-96-2089vqdz 1 tablet by mouth once dailyetodolac XL (Lodine XL) 500 MG 24 hr tablet Indications: Trochanteric bursitis of right hip , S/P lateral meniscus repair of right knee Take 1 tablet (500 mg) by mouth Daily 30 tablet 11 08/10/2024 08/10/2025 ActiveEtonogestrel (Nexplanon) 68 mg Implant (4 sources)Start: 45-73-5745Emtpxrnrteer (Nexplanon) 68 mg Implant Active 1 IMPLANT SUBDERMAL Once February 29, 2020 1:00amStart: 07-92-8940Aqzbgbmxspos (Nexplanon) 68 mg Implant Active 1 IMPLANT SUBDERMAL Once February 29, 2020 12:00amfluticasone propionate 0.05 mg/actuat metered dose nasal spray (7 sources)CorticosteroidStart: 49-14-8714yhfr 1-2 spray(s) nasal route once dailyfluticasone (Flonase) 50 MCG/ACT nasal spray Indications: PND (post-nasal drip) Administer 1-2 sprays into each nostril Daily Shake gently. Before first use, prime pump. After use, clean tip and replace cap. 16 g 08/19/2024 Active meclizine hydrochloride 25 mg oral tablet (5 sources)AntiemeticStart: 08-28-2024 End: 21-47-6751wlhf 1 tablet by mouth three times daily as needed for dizziness meclizine (Antivert) 25 MG tablet Indications: Vertigo Take 1 tablet (25 mg) by mouth 3 (three) times a day as needed for dizziness 30 tablet 1 08/28/2024 08/28/2025 Active1 ml medroxyPROGESTERone acetate 150 mg/ml prefilled syringe (20 sources)ProgestinStart: 11-10-2023 End: 79-32-7662jwgjravFLPAEEDRVnyc (Depo-Provera) 150 MG/ML suspension prefilled syringe injection syringe Indications: Encounter for surveillance of injectable contraceptive Inject 1 mL (150 mg) into the shoulder,thigh, or buttocks 1 (one) time for 1 dose 1 mL 3 08/16/2024 ActiveStart: 30-84-7983ckwbyh 1 mL by intramuscular injection every three monthsmedroxyPROGESTERone (Depo-Provera) 150 MG/ML suspension prefilled syringe injection syringe 1 mL Intramuscular every 3 months for 30 days 0 08/26/2022 Activemeloxicam 15 mg oral tablet (12 sources)Nonsteroidal Anti-inflammatory DrugStart: 05-12-2023 End: 24-48-5204fbhq 1 tablet by mouth in the morningmeloxicam (Mobic) 15 MG tablet Indications: Levoscoliosis , Trochanteric bursitis of right hip Take1 tablet (15 mg) by mouth in the morning. 90 tablet 0 05/12/2023 08/10/2023 Active Nebulizer misc (17 sources)Start: 02-10-2023 End: 32-02-4360Iizdmmvfz misc Indications: Shortness of breath 1 each every 4 (four) hours. 1 each 02/10/2023 02/10/2024 ActiveStart: 02-10-2023 End: 02-29-8599Fcbfzknel misc Indications: Shortness of breath 1 each every 4 (four) hours. 1 each 0 02/10/2023 02/10/2024 Activeondansetron 4 mg disintegrating oral tablet (14 sources)Serotonin-3 Receptor AntagonistStart: 08-19-2024 End: 16-81-0826xaoj 1 tablet by mouth every eight hours for nauseaondansetron ODT (Zofran-ODT) 4 MG disintegrating tablet Indications: Gastroenteritis Take 1 tablet (4 mg) by mouth every 8 (eight) hours if needed for nausea or vomiting for up to 7 days 21 tablet 08/19/2024 08/26/2024 ActiveStart: 04-12-2022 End: 88-75-9788kfgo 1 tablet by mouth every eight hours as needed for nausea and vomitingOndansetron Hcl 4 mg tablet Active 4 MG PO Q8H as needed for nausea and vomiting 24 08April 12, 2022 1:00amStart: 13-31-5671yefs 1 tablet by mouth every six hours as needed for nausea and vomitingOndansetron 4 mg tablet,disintegrating Active 4 MG PO Q6H as needed for nausea and vomiting April 08, 2022 1:00amoseltamivir 75 mg oral capsule (7 sources)Neuraminidase InhibitorStart: 83-70-1870futp 1 capsule by mouth every twelve hoursOseltamivir (Tamiflu) 75 mg capsule Active 75 MG PO Q12H 10 April 12, 2022 1:00amStart: 05-10-2017 End: 25-32-7630qmoc 1 capsule by mouth twice dailyOseltamivir (Tamiflu) 75 mg capsule Discontinued 75 MG PO Twice daily 01 14May 10, 2017 1:00am May 14, 2017 1:00am May 15, 2017 1:04amPnv b#95-Ferrous Fumarate-Fa (1 source)Start: 31-42-3028tqny 1 tablet by mouth once dailyPnv Cmb#95-Ferrous Fumarate-Fa Active 1 TAB Oral Daily September 03, 2018 1:03pmpredniSONE 20 mg oral tablet (8 sources)Start: 60-13-7087bxyf 2 tablets by mouth once daily at mealtime Prednisone 20 mg tablet Active 40 MG PO Daily January 06, 2024 12:00am administer with food or milkStart: 83-46-8945kxzx 40 mg by mouth once daily at mealtimePrednisone Active 40 MG PO Daily January 06, 2024 12:00am administer with food or milkStart: 68-95-0566gskl 5 tablets by mouth once daily, then take 4 tablets by mouth once daily, then take 3 tablets bymouth once daily, then take 2 tablets by mouth once daily, then take 1 tablet by mouth once daily predniSONE (Deltasone) 10 MG tablet Indications: It band syndrome, right , Trochanteric bursitis ofright hip Take 5 tabs p.o. daily x3 days Take 4 tabs p.o. daily x3 days Take 3 tabs p.o. daily x3 days Take 2 tabs p.o. daily x3 days Take 1 tab p.o. daily x3 days 45 tablet 0 05/20/2023 Activerimegepant 75 mg disintegrating oral tablet (18 sources)Start: 41-15-6103zofa 1 tablet by mouth every other dayRimegepant Sulfate (Nurtec) 75 MG tablet dispersible Indications: Acute migraine Take 1 tablet by mouth every other day 30 tablet 11 10/04/2023 Activesucralfate 1000 mg oral tablet (4 sources)Aluminum ComplexStart: 11-10-2022 End: 39-76-1025ysvp 1 tablet by mouth four times dailysucralfate 1 g Tab 1 gm = 1 tab(s), Oral, QID, X 7 day(s), # 28 tab(s), Refills(s) 0 Start Date: 11/10/22 Stop Date: 11/17/22 Status: OrderedStart: 70-51-3442jwqt 1 tablet by mouth twice daily as neededSucralfate (Carafate) 1 gram tablet Active 1 GM PO Twice daily as needed for abdominal discomfort 10 April 13, 2022 12:39amtopiramate 25 mg oral tablet (19 sources)Start: 10-04-2023 End: 72-63-4134asgb 1 tablet by mouth at bedtimetopiramate (Topamax) 25 MG tablet Indications: Atypical migraine Take 1 tablet (25 mg) by mouth at bedtime 30 tablet 11 08/10/2024 08/10/2025 ActivetraZODone hydrochloride 50 mg oral tablet (20 sources)Serotonin Reuptake InhibitorStart: 08-06-2023 End: 22-44-8424ijat 1 tablet by mouth at bedtimetraZODone (Desyrel) 50 MG tablet Indications: Difficulty sleeping Take 1 tablet (50 mg) by mouth atbedtime 90 tablet 3 08/10/2024 08/10/2025 ActiveStart: 88-20-0458yaoc 0.5 tablet by mouth at bedtimetraZODone (Desyrel) 50 MG tablet Indications: Difficulty sleeping take 1/2 tablet by mouth at bedtime 15 tablet 1 01/25/2023 Activevarenicline 1 mg oral tablet (12 sources)Partial Cholinergic Nicotinic AgonistStart: 31-07-8728cloh 1 tablet by mouth in the morningVarenicline Tartrate, Starter, (Chantix Starting ) 0.5 MG X 11 & 1 MG X 42 tablet therapy pack Indications: Tobacco abuse Take 1 Dose by mouth in the morning and 1 Dose before bedtime. 42 each 0 04/20/2023 Active Completed/Discontinued Medications MedicationDrug Class(es)DatesSig (Normalized)Sig (Original)azithromycin 250 mg oral tablet (2 sources)Macrolide AntimicrobialStart: 03-17-2023 End: 87-08-3642qhkkppcqcxzj (Zithromax) 250 MG tablet Indications: Strep throat Take 2 tabs PO x 1 day then 1 tab PO daily x 4 days 6 tablet 0 03/17/2023 05/12/2023 Discontinuedcefdinir 300 mg oral capsule (4 sources)Cephalosporin AntibacterialStart: 09-17-2021 End: 03-93-4019xmaw 1 capsule by mouth twice dailyCefdinir 300 mg capsule Discontinued 300 MG PO Twice daily 29 01September 17, 2021 12:00am October 26, 2021 12:03pmcephalexin 500 mg oral capsule (8 sources)Cephalosporin AntibacterialStart: 09-03-2018 End: 79-30-3941myde 1 capsule by mouth twice dailyCephalexin (Keflex) 500 mg capsule Discontinued 500 MG PO Twice daily 10 September 03, 2018 12:00am September 09, 2018 11:03pmStart: 04-14-2018 End: 02-47-7176kuef 1 capsule by mouth twice dailyCephalexin (Keflex) 500 mg capsule Discontinued 500 MG PO Twice daily 14 April 14, 2018 1:00amFebruary 2018 9:24pmdocusate sodium 100 mg oral capsule (5 sources)Start: 03-04-2019 End: 00-90-7534tscu 1 capsule by mouth once daily at bedtimeDocusate Sodium 100 mg Capsule Discontinued 100 MG PO Daily at bedtime March 04, 2019 1:00am September 18, 2019 9:43pmNorethindrone-Ethin Estradiol (4 sources)EstrogenStart: 05-10-2017 End: 26-51-7369kedj 1 tablet by mouth once dailyNorethindrone-Ethin Estradiol (Balziva (28)) 0.4-35 mg-mcg tablet Discontinued 1 TAB PO Daily May 10, 2017 1:00am July 25, 2017 9:23pmStart: 05-10-2017 End: 41-59-6789fjwx 1 tablet by mouth once dailyNorethindrone-Ethin Estradiol (Balziva (28)) 0.4-35 mg-mcg tablet Discontinued 1 TAB PO Daily May 10, 2017 12:00am July 25, 2017 8:23pmEtonogestrel-Ethinyl Estradiol (Nuvaring) 0.12-0.015 mg/24 hr Ring (4 sources)Start: 03-18-2021 End: 12-82-4730Mmpqborksuci-Ethinyl Estradiol (Nuvaring) 0.12-0.015 mg/24 hr Ring Discontinued 1 VAG RING VAGINAL EVERY 4 WEEKS March 18, 2021 1:00am April 08, 2022 12:24amStart: 03-18-2021 End: 70-03-4778Bhyvcpgteipb-Ethinyl Estradiol (Nuvaring) 0.12-0.015 mg/24 hr Ring Discontinued 1 VAG RING VAGINAL EVERY 4 WEEKS March 18, 2021 12:00am April 07, 2022 11:24pmferrous sulfate 325 mg oral tablet (4 sources)Start: 10-18-2017 End: 83-43-9145vfvb 1 tablet by mouth twice dailyFerrous Sulfate 325 mg (65 mg iron) Tablet Discontinued 325 MG PO Twice daily October 18, 2017 12:00am April 12, 2018 3:35amhydrOXYzine pamoate 50 mg oral capsule (4 sources)AntihistamineStart: 10-11-2018 End: 36-43-2262pewh 1 capsule by mouth every eight hours as needed for anxiety Hydroxyzine Pamoate (Vistaril) 50 mg capsule Discontinued 50 MG PO Q8H as needed for anxiety October 11, 2018 12:00am October 29, 2018 12:32pmibuprofen 600 mg oral tablet (20 sources)Nonsteroidal Anti-inflammatory DrugStart: 09-17-2021 End: 10-51-7685jmbt 1 tablet by mouth every eight hours as needed for pain Ibuprofen 600 mg tablet Discontinued 600 MG PO Q8H as needed for pain September 17, 2021 12:00am October 26, 2021 12:03pmStart: 02-29-2020 End: 29-52-8303rwlx 1 tablet by mouth three times dailyIbuprofen 600 mg tablet Discontinued 600 MG PO Three times daily February 29, 2020 1:00am March 18, 2021 10:50amStart: 09-18-2019 End: 98-90-0435bqib 1 tablet by mouth three times daily as needed for pain Ibuprofen 800 mg Tablet Discontinued 800 MG PO Three times daily as needed for Pain September 18, 2019 12:00am February 29, 2020 10:26amStart: 03-03-2019 End: 06-98-8547Czeskdobj 800 mg tablet Discontinued 800 MG PO every 6 to 8 hours as needed for pain March 03, 2019 1:00am September 18, 2019 9:43pmStart: 04-14-2018 End: 71-94-2557dknd 1 tablet by mouth three times daily as needed for pain Ibuprofen 800 mg tablet Discontinued 800 MG PO Three times daily as needed for pain April 1:00am June 04, 2018 9:24pmStart: 02-22-2018 End: 79-76-9656uuem 1 tablet by mouth three times daily as needed for pain Ibuprofen 600 mg tablet Discontinued 600 MG PO Three times daily as needed for pain February 23, 2018 12:44am March 13, 2018 8:19pmStart: 07-25-2017 End: 28-95-3955vteq 1 tablet by mouth every eight hours as needed for pain Ibuprofen 600 mg tablet Discontinued 600 MG PO Q8H as needed for pain July 25, 2017 12:00am October 18, 2017 1:25pmStart: 05-10-2017 End: 09-44-0946Xwpaszzbe 600 mg tablet Discontinued 600 MG PO every 6 to 8 hours as needed for pain May 10, 2017 1:00am July 19, 2017 12:58pm End: 57-23-1709qjnwefrba 200 MG tablet Take 600 mg by mouth if needed for mild pain OTC 0 05/19/2023 Discontinuedloratadine 10 mg oral tablet (20 sources)Start: 09-24-2022 End: 42-40-7247vehe 1 tablet by mouth in the morningloratadine (Claritin) 10 MG tablet Indications: Ear itching , Seasonal allergies Take 1 tablet (10 mg) by mouth in the morning. 30 tablet 2 09/24/2022 08/10/2024 Discontinued methocarbamol 500 mg oral tablet (4 sources)Muscle RelaxantStart: 12-23-2019 End: 13-79-7325jzvs 1 tablet by mouth three times daily as needed for muscle spasmsMethocarbamol 500 mg tablet Discontinued 500 MG PO Three times daily as needed for muscle spasm December 23, 2019 10:28am February 29, 2020 10:26ammetoclopramide 10 mg oral tablet (4 sources)Dopamine-2 Receptor AntagonistStart: 03-28-2018 End: 86-81-2874rhlw 1 tablet by mouth every six hours as needed for nausea and vomitingMetoclopramide Hcl 10 mg tablet Discontinued 10 MG PO Q6H as needed for nausea and vomiting March 28, 2018 9:37pm April 12, 2018 3:35am minocycline 100 mg oral capsule (2 sources)Tetracycline-class DrugStart: 02-01-2023 End: 30-49-2971ofys 1 capsule by mouth in the morningminocycline 100 MG capsule Indications: Acne vulgaris Take 1 capsule (100 mg) by mouth in the morning. 30 capsule 2 02/01/2023 05/12/2023 Discontinuednaproxen 500 mg oral tablet (4 sources)Nonsteroidal Anti-inflammatory DrugStart: 07-19-2017 End: 90-15-6900rifn 1 tablet by mouth twice daily at mealtimeNaproxen 500 mg tablet Discontinued 500 MG PO Twice daily 14 July 19, 2017 12:00am July 25, 2017 9:23pm administer with food or milknicotine 2 mg chewing gum (4 sources)Cholinergic Nicotinic AgonistStart: 06-09-2018 End: 79-11-9756Pxbcopjd (Polacrilex) (Nicorelief) 2 mg Gum Discontinued 2 MG BUCCAL Every 2 hours as needed for Nicotine Cravings 60 June 09, 2018 1:00am June 21, 2018 8:44pmnitrofurantoin, macrocrystals 25 mg / nitrofurantoin, monohydrate 75 mg oral capsule (8 sources)Nitrofuran AntibacterialStart: 11-11-2018 End: 88-23-2563imht 1 capsule by mouth every twelve hours at mealtime Nitrofurantoin Monohyd/M-Cryst (Macrobid) 100 mg capsule Discontinued 100 MG PO Q12H 6 3 November 11, 2018 12:00am November 21, 2018 4:12pm must administer with a meal/foodStart: 07-20-2017 End: 28-27-3770lauc 1 capsule by mouth every twelve hours at mealtime Nitrofurantoin Monohyd/M-Cryst (Macrobid) 100 mg capsule Discontinued 1 CAP PO Q12H July 20, 2017 12:00am July 25, 2017 9:23pm administer with a meal/food; swallow whole; do not open, crush,dissolve , or chewPnv Cmb#95- Ferrous Fumarate-Fa () 28 mg iron- 800 mcg Tablet (4 sources)Start: 09-03-2018 End: 94-96-5990tzic 1 tablet by mouth once dailyPnv Cmb#95-Ferrous Fumarate-Fa () 28 mg iron- 800 mcg Tablet Discontinued 1 TAB PO Daily September 03, 2018 12:00am September 18, 2019 9:43pmStart: 09-03-2018 End: 13-54-7026pdyw 1 tablet by mouth once dailyPnv Cmb#95-Ferrous Fumarate-Fa () 28 mg iron- 800 mcg Tablet Discontinued 1 TAB PO Daily September 02, 2018 11:00pm September 18, 2019 8:43pmPrenatal (4 sources)Start: 10-18-2017 End: 84-97-7846tkrm 2 tablets by mouth once dailyPrenatal Discontinued 2 TAB PO Daily October 18, 2017 12:00am April 12, 2018 3:35amStart: 10-18-2017 End: 78-78-2471yeab 2 tablets by mouth once dailyPrenatal Discontinued 2 TAB PO Daily October 17, 2017 11:00pm April 12, 2018 2:35am1 ml promethazine hydrochloride 25 mg/ml injection (20 sources)PhenothiazineStart: 05-05-2023 End: 10-62-1087vclnnuojvfof (Phenergan) injection 25 mgStart: 47-16-8900tntk 1 tablet by mouth every six hours as needed for nauseapromethazine 25 mg Tab 25 mg = 1 tab(s), Oral, q6hr, PRN as needed for nausea/vomiting, # 12 tab(s), Refills(s) 0 Start Date: 11/10/22 Status: OrderedStart: 03-18-2021 End: 81-81-4453xiag 1 tablet by mouth four times daily as needed for nausea and vomitingPromethazine 25 mg tablet Discontinued 25 MG PO Four times daily as needed for nausea and vomiting 10 March 18, 2021 11:51am October 26, 2021 12:03pmStart: 08-16-2018 End: 64-66-3694fowz 1 tablet by mouth every six hours as needed for nausea and vomitingPromethazine 25 mg tablet Discontinued 25 MG PO Q6H as needed for nausea and vomiting August 16, 2018 12:00am September 03, 2018 12:07pmStart: 08-16-2018 End: 76-29-6645Wrmhvwejfbzy (Phenergan) 25 mg suppository Discontinued [address] Q4H as needed for nausea and vomiting August 16, 2018 12:00am September 03, 2018 12:07pmStart: 08-09-2018 End: 99-48-7091koqr 1 tablet by mouth three times daily as needed for nausea and vomitingPromethazine 25 mg tablet Discontinued 25 MG PO Three times daily as needed for nausea and xadhxhtg81 August 09, 2018 12:00am September 03, 2018 12:07pm Start: 03-13-2018 End: 20-01-8190favg 1 tablet by mouth every six hours as needed for nausea and vomitingPromethazine 25 mg tablet Discontinued 25 MG PO Q6H as needed for nausea and vomiting March 13, 2018 1:00am April 12, 2018 3:35amtiZANidine 4 mg oral tablet (8 sources)Central alpha-2 Adrenergic AgonistStart: 09-14-2023 End: 56-88-6905bsni 1 tablet by mouth every eight hours as needed for muscle spasms and muscle spasmstiZANidine (Zanaflex) 4 MG tablet Indications: Muscle spasm Take 1 tablet (4 mg) by mouth every 8 (eight) hours if needed for muscle spasms for up to 10 days 30 tablet 09/14/2023 08/10/2024 DiscontinuedtraMADol hydrochloride 50 mg oral tablet (4 sources)Opioid AgonistStart: 11-11-2018 End: 44-40-0743khkq 1 tablet by mouth every eight hours as needed for pain Tramadol (Ultram) 50 mg tablet Discontinued 50 MG PO Q8H as needed for pain 6 2 November 11, 2018 12:00am November 21, 2018 4:11pmVitamin D3 (4 sources)Start: 10-18-2017 End: 84-56-9795bwtp 65860 [IU] by mouth once dailyVitamin D3 Discontinued 97170 UNIT PO Daily October 18, 2017 12:00am April 12, 2018 3:35amStart: 10-18-2017 End: 41-97-4718pczz 09171 [IU] by mouth once dailyVitamin D3 Discontinued 52682 UNIT PO Daily October 17, 2017 11:00pm April 12, 2018 2:35am Problems Active Problems Problem ClassificationProblemDateDocumented DateEpisodic/ChronicAbdominal pain (1 source)Abdominal pain; Translations: [Unspecified abdominal pain]Onset: 85-08-1957EgcgprwzNazgwui disorders (20 sources)Mixed anxiety and depressive disorder; Translations: [Anxiety]Onset: [id number] associated with dizziness or vertigo (2 sources)Vertigo; Translations: [Dizziness and giddiness]69-15-8172Jyhwtrks Contraceptive and procreative management (3 sources)Contraception ; Translations: [Encounter for surveillance of injectable contraceptive]06-98-7136UsfwhiuaKqvfh of unknown origin (3 sources)Fever; Translations: [Fever, unspecified]79-30-3213AbdrrnkcWskfckqv; including migraine (2 sources)Migraine; Translations: [Migraine without aura, not intractable, without status migrainosus]84-49-6036WocgvevLphmomyi; including migraine (11 sources)Headache; Translations: [Headache]31-10-6125WbreafjoBnkxpqhftxixw mental health disorders (20 sources)Dissociative convulsions; Translations: [Conversion disorder with seizures or convulsions]Onset: 305422-17-8319StsxwdmZyrf disorders (20 sources)Severe major depression; Translations: [Major depressive disorder, single episode, severe without psychotic features]Onset: ChronicNoninfectious gastroenteritis (2 sources)Gastroenteritis; Translations: [Noninfective gastroenteritis and colitis, unspecified]38-29-4617XskwssqxVsfnv acquired deformities (2 sources)Levoscoliosis; Translations: [Other forms of scoliosis, site unspecified]39-49-2276TboipxrZblib bone disease and musculoskeletal deformities (20 sources)Scoliosis of lumbar spine; Translations: [Other idiopathic scoliosis, lumbar region]Onset: 606137-80-4914GiaqfjyKjlyj complications of (4 sources)Vomiting of , unspecified; Translations: [VOMITING OF UNSPECIFIED]Onset: 87-09-7507NcyuurxhTgwdg complications of (5 sources)Vomiting of ; Translations: [Vomiting of , unspecified]02-85-2226NzmndjkzOslgz connective tissue disease (5 sources)Pain in lower limb; Translations: [Pain in right leg]10-11-2018 EpisodicOther connective tissue disease (2 sources)Iliotibial band friction syndrome of right knee; Translations: [Iliotibial band syndrome, right leg]25-90-9316JbsvsqjlDgret injuries and conditions due to external causes (2 sources)Injury of nose; Translations: [Unspecified injury of nose, initial encounter]30-84-1734ZdvtonnpUjxss lower respiratory disease (1 source)Dyspnea; Translations: [Shortness of breath]Onset: 95-74-7814Xwwodght Other nervous system disorders (2 sources)Paresthesia; Translations: [Paresthesia of skin]69-63-5002Xxhvdzbj Other non-traumatic joint disorders (2 sources)Pain in right hip joint; Translations: [Pain in right hip]05-19-2023 EpisodicOther non-traumatic joint disorders (4 sources)Hip pain; Translations: [Pain in left hip]81-34-2386UtcwwyepWttei upper respiratory infections (17 sources)Upper respiratory infection; Translations: [Acute upper respiratory infection, unspecified]09-54-8796GpyjfcumXvvcfx media and related conditions (4 sources)Acute left otitis media; Translations: [Otitis media, unspecified, left ear]62-82-9642WfqhryopTxghbixmz by other medications and drugs (5 sources)Acetaminophen overdose; Translations: [Poisoning by 4-Aminophenol derivatives, accidental (unintentional), initial encounter]26-71-9090Ouiptgrp Residual codes; unclassified (1 source)Tobacco user; Translations: [Chews tobacco]ChronicResidual codes; unclassified (4 sources)Tobacco user; Translations: [Tobacco use]99-19-1375BqvpyxtkPhvilrxl codes; unclassified (2 sources)Body mass index 20-24 - normal; Translations: [Body mass index (BMI) 21.0-21.9, adult]91-60-9289LibafzxsBxykpzox codes; unclassified (4 sources)Difficulty sleeping ; Translations: [Sleep disorder, unspecified] 99-16-2384MjbdyxivTdjqnmkw codes; unclassified (1 source)12 weeks gestation of ; Translations: [12 WEEKS GESTATION OF ]Onset: 81-72-6802Fsuyynekq and history of mental health and substance abuse codes (1 source)Personal history of nicotine dependence; Translations: [PERSONAL HISTORY OF NICOTINE DEPEND]Onset: 88-53-3721TbzauequCxmnsag and strains (14 sources)Sprain of knee; Translations: [Sprain of unspecified site of unspecified knee, initial encounter]Onset: 502623-48-5022Zvclitdc Substance-related disorders (20 sources)Cannabis abuse; Translations: [Cannabis abuse, uncomplicated]Onset: 624286-86-4288KkqmvagZpnwtnc on above:Added secondary to documentation in Social History.Suicide and intentional self-inflicted injury (1 source)Suicidal intent; Translations: [Feeling like committing suicide] ChronicSuicide and intentional self-inflicted injury (4 sources)Suicidal intent; Translations: [Suicidal ideations]14-18-4574Boqtqghy Unclassified (1 source)Other low back pain; Translations: [Other low back pain]Onset: 84-01-8060Iwscelg tract infections (5 sources)Urinary tract infectious disease; Translations: [Urinary tract infection, site not specified]99-96-0200Erdbnhtr Past or Other Problems Problem ClassificationProblemDateDocumented DateEpisodic/ChronicGenitourinary symptoms and ill-defined conditions (20 sources)Dysuria; Translations: [Dysuria]Onset: 02-01-2023 Resolved: 370635-49-4800OuwlpjdkYnwfyswjdubs diseases of female pelvic organs (20 sources)Acute vaginitis; Translations: [Acute vaginitis]Onset: 01-01-2023 Resolved: 860284-71-7651NqwqeqkyQekmdvvcm (20 sources)Influenza; Translations: [Influenza due to Influenza A virus]Onset: 08-19-2024 Resolved: 969678-73-1342LvivsuvsGrrjlcuhkia chest pain (13 sources)Chest pain; Translations: [Chest pain, unspecified]Onset: 08-19-2024 Resolved: 447845-94-8247LogvscmzZfddc complications of (15 sources)Complication of , childbirth and/or the puerperium; Translations: [Other specified related conditions, unspecified trimester]Onset: 08-19-2024 Resolved: 815669-34-8447WbpwpvewKjdbp complications of (15 sources)Asymptomatic bacteriuria in ; Translations: [Asymptomatic bacteriuria during ]Onset: 08-19-2024 Resolved: 971373-36-7922LakfknsoDekfu connective tissue disease (20 sources)Trochanteric bursitis of right hip; Translations: [Trochanteric bursitis, right hip]Onset: 777066-59-8711DlxnqckvRnueq connective tissue disease (20 sources)Bursitis of olecranon of left elbow; Translations: [Olecranon bursitis, left elbow]Onset: 09-09-2022 Resolved: 138322-06-2024CzeqzmdwBlyii injuries and conditions due to external causes (14 sources)Injury of rotator cuff; Translations: [Unspecified injury of muscle(s) and tendon(s) of the rotatorcuff of unspecified shoulder, initial encounter]Onset: 08-19-2024 Resolved: 813063-15-8794LvxsanqgFacov lower respiratory disease (12 sources)Cough; Translations: [Acute cough]Onset: 01-01-2023 Resolved: 737784-66-7099UueliqvfQrrjq lower respiratory disease (18 sources)Cough; Translations: [Acute cough]Onset: 01-01-2023 Resolved: 820548-37-4451FiybvvteOruwx non-traumatic joint disorders (18 sources)Pain in right knee; Translations: [Pain in joint, lower leg]Onset: 638924-24-1303YxxzontfOxhcf skin disorders (20 sources)Acne vulgaris; Translations: [Acne vulgaris]Onset: 02-01-2023 65-95-6777KpqtcchuFgtylalz codes; unclassified (18 sources)History of arthroscopy of knee joint; Translations: [Other specified postprocedural states]Onset: 787785-89-5783CnwsjcxrDrogoujippd; intervertebral disc disorders; other back problems (20 sources)Sciatica; Translations: [Other specified dorsopathies, lumbosacral region]Onset: 236610-86-1162XjvwbzfsEdgowrakruy injury; contusion (16 sources)Contusion of hand; Translations: [Contusion of right hand, initial encounter]Onset: 08-19-2024 Resolved: 334001-19-0064Qeitpvgf Results Test NameValueInterpretationReference RangeFacilityS. pyogenes DNA BARBI+probe Nom (Unsp spec)on 11-50-1048Efdxygaggnedvx and review of laboratory resultsNormal N[facility]S HealthcareRESULTNegativeNegativeNOMS HealthcareNOIA HealthcareHCG ( test) Ql (U)on 91-73-2071Osie Test, UrNegativeNegativeNOMS Healthcare NOMS HealthcareHCG ( test) Ql (U)on 69-12-3704Pusp Test, UrNegative NegativeNOMS HealthcareNOMS HealthcareUrine Cultureon 65-86-5957Bvhyxrvm identified Cx Nom (U)50,000 colonies/ml mixed bacterial skin contaminants 2 Days PERFORMED BY: [facility] [address] [place] [address] PATHOLOGIST GOLF CADDIE DARIAN ZAMUDIO M.D.NormalAdventhealth Ocala Physician GroupComment on above: Performed By: #### CUU #### [facility] [address] [place] [address] USAHEPATITIS B SURF AB QUANTon 76-96-5414FULWDULCE B SURF AB QUANT9.1AbnormalImmunity>10 mIU/mLNOMS HealthcareComment on above:Status of Immunity Anti-HBs Level Inconsistent with Immunity 0.0 - 10.0 Consistent with Immunity >10.0 Interpretation and review of laboratory resultsAbnormalNOMS Healthcare MEASLES/MUMPS/RUBELLA IMMUNITYon 38-81-4330JVDPOBQ ANTIBODIES, IGG>300.0Immune >16.4 AU/mLNOMS HealthcareComment on above:Negative <13.5 Equivocal 13.5 - 16.4 Positive >16.4 Presence of antibodies to Rubeola is presumptive evidence of immunity except when acute infection is suspected. MUMPS ABS, IGG69.4 AU/mLImmune >10.9NOMS HealthcareComment on above:Negative <9.0 Equivocal 9.0 - 10.9 Positive >10.9 A positive result generally indicates past exposure to Mumps virus or previous vaccination. Performed at: [facility] LabCorewell Health [facility] [address] [place] [id number] Hvac Refrigeration Technician: Nikita Humphries PhD, Phone: [phone] RUBELLA ANTIBODIES, IGG2.80Immune >0.99 indexNOMS HealthcareComment on above: Non-immune <0.90 Equivocal 0.90 - 0.99 Immune >0.99 No Panel Informationon 69-98-4817OREMCHPYFPKMT HealthcareVARICELLA-ZOSTER V AB, IGGon 21-82-9880JGGWKZUZS-ZOSTER V AB, IGGNon-ReactiveNon ReactiveNOMS HealthcareComment on above:Please note reference interval change A Reactive result is considered evidence of immunity to VZV. Reactive indicates that VZV IgG was detected consistent with previous infection and/or vaccination. A Non Reactive result indicates that VZV IgG was not detected suggesting that immunity has not been acquired. Performed at: [address] [id number] Hvac Refrigeration Technician: Nikita Humphries PhD, Phone: [phone] XR CHEST 2 VIEWSon 10-07-2023 Exam Date/Time: 10/07/2023 12:11 EDT Reason for [...] Ka,r in mGy = . DAP = .[facility] ALTUSRadiology, Radiologist, - 10/07/2023 Exam Date/Time: 10/07/2023 12:11 [...] in mGy = . DAP = . [facility] HealthcareRadiology Study observation (narrative)[facility] CareXR CHEST 2 VIEWSOrdered By: Radiologist Radiology on 63-05-9161QEWC [employer] Work Phone: XR Chest 2 Viewson 92-61-5676BC Chest 2 ViewsExam Date/Time: 10/07/2023 12:11 EDT Reason for Exam: [...] Ka,r in mGy = . DAP = .[facility] HospitalConsent for Treatmenton 05-27-2023 Consent for [id number]#1.00TIFFNoKindred Hospital DaytonDischarge Instructionson 03-85-5423Xeitjsjru [id number]#1.00TIFFSt. Elizabeth Hospital Clinical Summaryon 72-63-4397BC Clinical Summary [address] [address] ED Clinical Summary Person Information Name: MAURY COLLAZO [place] Age: 22 Years : 2000 Sex: Female Language: Algerian PCP: Hoa JASSO, Bella Shaw Marital Status: [...] 05/27/2023 13:04:43 05/27/2023 13:04:43 05/27/2023 13:04:43 ADDRESS: [facility] [address] [place] [place] [phone] PHYS DOC NOTES: MEDICAL INFORMATION: Prescriptions Given: Medications to Continue with No Changes Other Medications promethazine (promethazine 25 mg Tab) 1 Tablets By Mouth every 6 hours as needed as needed for nausea/vomiting. Refills: 0. PATIENT EDUCATION INFORMATION: Instructions: Knee Sprain, Adult Follow up: With: Address: When: Russell Mccarthy [place] [phone] Business (6) In 3 days 05/30/2023 DIAGNOSIS: Knee sprainNormalFisher Turner Medical CenterED Noteon 50-29-4802YT Note [id number]#1.00TIFFNormBerenice Turner Medical CenterED Note-Physicianon 70-42-0178WF Note-PhysicianBasic Information Time Seen: Pola Purcell PA-C 05/27/2023 [...] the right knee made worse with medial stresses.There is no laxity Good range of motion [...] immobilizer and is discharged to follow-up with orthopedics.Patient was encouraged to return to the ED [...] Chavez In 3 days 05/30/2023 EST [address] [place], [place] [address] Business (1) Additional Instructions: Patient Education Knee [...] made to ensure accuracy, however, inadvertently computerized parcel post delivery mistakes may be present. Appropriate healthcare PPE [...] DAP = na Signed By: Kalin Goldberg MDCorey HospitalComment on above: Result Comment: Electronically Signed By: Pola Purcell PA-C\.br\Date and Time Signed: 05/27/2416:53 EST\.br\Electronically Co-Signed By: Michael Hannah M.D.\.br\Date and Time Co-Signed: 05/27/23 20:19 ESTED Patient Education Noteon 75-86-6694WS Patient Education NoteOrthopedics Knee Sprain, Adult A knee sprain is [...] or lying down. General instructions ? Take jjhv-lne-xmsdhga and prescription medicines only as told by [...] usually occurs as the result of a fallor injury. ? Treatment may involve immobilizing the [...] Reviewed: 02/16/2020 Elsevier Patient Education ? 2022 [employer] ED Patient Summaryon 79-14-2692UX Patient Summary [address] [address] Patient Discharge Instructions Person Information Name: MAURY COLLAZO Age: 22 Years Arrival Date: 05/27/2023 11:15:44 Discharge Diagnosis: Knee sprain Primary Care Physician: Bella Camara MD Provider Information Primary Provider: Michael Hannah M.D. Advanced Fireworks Assembler:Pola Purcell PA-C The exam and treatment you received in the Emergency Department were for an urgent problem and are not intended as complete care. It is important that you follow up with a doctor, nurse practitioner,or physician?s quality assistant for ongoing care. If your symptoms [...] Follow-up Instructions: With: Address: When: Russell Chavez [address] [place] [address] [employer] (1) In 3 days 05/30/2023 In the event that this physician does not participate in your insurance network, please consult with your insurance company to find a nearby participating provider. Patient Education Materials: Knee Sprain, Adult A MESSAGE TO ALL PATIENTS REGARDING OPIOIDS PRESCRIPTION OPIOIDS: WHAT YOU NEED TO KNOW Prescription opioids can be used to help relieve bdaybzhv-cj-ywwjso pain and are often prescribed following a [...] and have fewer risks and side effects. Optionsmay include: ? Pain relievers such as acetaminophen, [...] unused prescription opioids: Find your community drug take- back program or yourDelfmemsrmFree For Kids mail-back program, or flush them down the toilet, following guidance from the Food and Drug Administration (www.fda.gov/Drugs/ResourcesForYou). ? Visit www.cdc.gov/drugoverdose to learn about the risks of opioids abuse and overdose. ? If you believe you may be struggling with addiction, tell your health career services manager and ask for guidance or call [facility]ITALA?S National Helpline at 5-110-290-QSMD. v Source: US Department of Health (more content not included)...[facility] HospitalXR Knee Complete 4+ Views Righton 28-70-7399FQ Knee Complete 4+ Views RightExam Date/Time: 05/27/2023 11:41 EST Reason for Exam: Pain, Traumatic Report IMPRESSION: NEGATIVE RIGHT KNEE. CLINICAL HISTORY: Pain, Traumatic COMPARISON: NONE. FINDINGS: 4 views of the right knee demonstrate no evidence of a fracture, dislocation, bone or joint abnormality. Ordering Provider: Pola Purcell FINAL REPORT Dictated: 05/27/2023 11:52 am Signer Kalin JASSO Signed (Electronic Signature): 05/27/2023 11:52 am Signed by: Signer Kalin JASSO Transcribed by: RYAN Technologist: [place] Technical Comments Radiation Dose: Ka,r in mGy = na DAP = naNormalPremier Health Upper Valley Medical CenterXR Hip - right 3 Viewson 05-19-2023 Imaging Result: AP pelvis bilateral hip and frog view of the right hip taken in the office today which do not demonstrate any congenital abnormalities with a femoral head or acetabulum no evidence of acute fracture or bony tumor seen.[facility] HealthcareRadiology Study observation (narrative)[facility] CareXR Lumbar spine 4 Viewson 66-61-6002Ggrwbde Result: AP lateral and oblique of the lumbar spine taken in the office which he end demonstrates no change in her thoracolumbar scoliosis she does have noted Schmorl nodes multiple discs and developing some early facet hypertrophy in the lumbar spineVidant Pungo HospitalRadiology Study observation (narrative)[facility] CareXR Chest Single Viewon 31-61-9938VG Chest Single ViewExam Date/Time: 11/10/2022 17:10 EDT Reason for Exam: [...] Ka,r in mGy = na DAP = naNormalPremier Health Upper Valley Medical CenterAuto Diffon 36-44-5421Tsmqpxmaa/100 WBC (Bld)0.5 %Normal0.0-2.0Prem[facility] Valley Medical CenterComment on above:Order Comment: Order Added by Discern Expert.Performed By: #### [id number], 6928191, 18818477, 9479519, 5227368, 57068255, 5001628, 1216024 ####[place] [address] [place], [place] [address]Pnyifismr/Leukocytes Auto (Bld) [Pure # fraction]0.0 E9/LNormal0.0-0.2FNewark HospitalComment on above:Order Comment: Order Added by Discern Expert.Performed By: #### 0838660, 0070539, 37892431, 1313770, 9403560, 13954525, 9622231, 4884110 ####[address] [address] Eosinophils/100 WBC (Bld)1.0 %Normal0.0-8.0[facility] Medical CenterComment on above:Order Comment: Order Added by Discern Expert.Performed By: #### 7233073, 7309405, 92417110, 3096320, 0074280, 97476916, 6253507, 7303264 ####[address] [address]Bxwzztkjzhw/Leukocytes Auto (Bld) [Pure # fraction]0.1 E9/LNormal0.0-0.5FNewark Hospital Comment on above:Order Comment: Order Added by Discern Expert.Performed By: #### 0670494, 7932823, 82267404, 5109635, 3847333, 45297653, 7368299, 2718306 ####[place] [address] [place] [address] Lymphocytes/100 WBC (Bld)26.5 %Eezfma13.0-50.0[facility] Medical CenterComment on above:Order Comment: Order Added by Discern Expert.Performed By: #### 0045334, 2253172, 98174746, 5124211, 7631214, 46099698, 4825158, 6625482 ####[place] [address] [place] [address] Lymphocytes/Leukocytes Auto (Bld) [Pure # fraction]2.3 E9/LNormal1.0-4.0[facility] Medical CenterComment on above:Order Comment: Order Added by Discern Expert.Performed By: #### 1825378, 6523843, 57971771, 0155795, 9673460, 23062302, 7719319, 5440221 ####[place] [address] [place], [place] [address]Pflgkryam/100 WBC (Bld)5.2 %Normal4.0-14.0[facility] Medical CenterComment on above:Order Comment: Order Added by Discern Expert.Performed By: #### 5626910, 7879501, 01405626, 5837370, 8468450, 78164596, 3559529, 5244606 ####[address] [address]Qnprtvsxo/Leukocytes Auto (Bld) [Pure # fraction] 0.4 E9/LNormal0.2-1.0[facility] Medical CenterComment on above:Order Comment: Order Added by Discern Expert.Performed By: #### 1280610, 0387972, 53070594, 3915356, 9567005, 91238269, 6658963, 9685037 ####[address] [address]Hujdsifjgvs/100 WBC (Bld)66.8 %Normal 36.0-75.0[facility] Medical CenterComment on above:Order Comment: Order Added by Discern Expert.Performed By: #### 3136831, 9643586, 14118412, 7517251, 7329293, 71601136, 5176680, 3109848 ####[address] [address]Dqtqyjkiaju/Leukocytes Auto (Bld) [Pure # fraction]5.7 E9/LNormal2.0-7.5FNewark HospitalComment on above:Order Comment: Order Added by Discern Expert.Performed By: #### 4566879, 0914018, 89397352, 4480300, 5892011, 84172496, 0794870, 0243614 ####[facility] [address] [place], [place] [address]XENit 11-10-2022 Creatinine [Mass/Vol]0.8 mg/dLNormal0.5-1.3FNewark HospitalComment on above:Performed By: #### 5770741, 1284070, 99850234, 0108204, 1332600, 40151777, 8595454, 9250311 ####[facility] [address] [place], [place] [address]Ugnu nitrogen [Mass/Vol]13 mg/dLNormal5-21Prem[facility] Medical CenterComment on above:Performed By: #### 5053433, 0282001, 42993977, 3715584, 5703482, 39519414, 6096379, 4205265 ####[facility] [address] [place], [place] [address]Glfl nitrogen/Creatinine [Mass ratio]16 No NuzklAdfrnt86-08ChgvzkPremier Health Upper Valley Medical CenterComment on above: Performed By: #### 1301902, 5496008, 79523805, 0361056, 2057672, 31720579, 5509658, 1669079 ####[facility] [address] [place], [place] [address]Wqhvk gap [Moles/Vol]13 mmol/LNormal6-16[facility] Medical CenterComment on above:Performed By: #### 3999810, 2597766, 15272045, 5194772, 8158648, 45395872, 5947168, 2792594 ####[facility] [address] [place], [place] [address]Bxchzsq [Mass/Vol]9.7 mg/dLNormal 8.9-11.1FNewark HospitalComment on above:Performed By: #### 2408557, 9984332, 90612038, 3826898, 2623558, 12436036, 9736394, 9531968 ####[facility] [address] [place], [place] [address]Grblkrfu [Moles/Vol] 105 mmol/ZGvjiua898-539HbiwahPremier Health Upper Valley Medical CenterComment on above:Performed By: #### 5126532, 5486497, 96263919, 9477024, 6031431, 32081103, 2418410, 3916995 ####[facility] [address] [place], [place] [address]FG3 [Moles/Vol]24 mmol/ISpjvid96-32PdrzmyPremier Health Upper Valley Medical CenterComment on above: Performed By: #### 0299225, 9080930, 36188752, 7111832, 9483562, 85329290, 3044197, 5644414 ####[facility] [address] [place], [place] [address]Ppogaiz [Mass/Vol]96 mg/zNAdxvxg23-350JxbuksPremier Health Upper Valley Medical CenterComment on above:Result Comment: If this glucose result represents a fasting glucose, interpretation should refer tothe following reference range: 55-99 mg/dLPerformed By: #### 3191208, 9329074, 92303965, 1781301, 5115379, 25778013, 7072155, 5311167 ####[facility] [address] [place], [place] [address]Aqlzbieig [Moles/Vol]3.8 mmol/LNormal3.5-5.3FNewark HospitalComment on above:Performed By: #### 8512988, 7310504, 36295974, 9415396, 8387605, 78827296, 8068101, 5460722 ####[facility] [address] [place], [place] [address]Onhlsi [Moles/Vol]138 mmol/L Gqfvgt123-246EixyfiPremier Health Upper Valley Medical CenterComment on above:Performed By: #### 7110699, 7973019, 86301784, 1350894, 5051586, 94298681, 7089468, 0219038 ####[facility] [address] [place], [place] [address]ZWG w/ Auto Diffon 69-28-9227Wlgqvcjcsos distribution width (RBC) [Ratio]13.5 % Cvuphi25.9-14.2FNewark HospitalComment on above:Performed By: #### 7720464, 2237458, 03133562, 0890328, 6863237, 21464899, 7405002, 8188829 ####[place] [place] [address] Hematocrit (Bld) [Volume fraction]40.4 %Tafzwk36.0-46.0[facility] Medical CenterComment on above:Performed By: #### 6593419, 5716041, 60453682, 8879187, 1493011, 66520909, 1568204, 0013711 ####[address] [address]Oyfynmqblt (Bld) [Mass/Vol]13.7 g/dL Zrmlor29.0-16.0[facility] Medical CenterComment on above:Performed By: #### 7542756, 4902170, 96064239, 4943768, 6505319, 15643065, 7367466, 8529628 ####[address] [address]GNO (RBC) [Entitic mass]30.0 nvAjtrkb71.0-34.0[facility] Medical CenterComment on above:Performed By: #### 0041541, 9336255, 85343642, 7381910, 4998412, 64438379, 9019668, 2059816 ####[place] [address] [place], [place] [address]CQHV (RBC) [Mass/Vol]33.9 g/sMVvuiok08.4-36.0[facility] CenterComment on above:Performed By: #### 6732516, 8505230, 81691850, 5180713, 2175535, 52171259, 3479162, 5273510 ####[address] [address]XSA (RBC) [Entitic vol]88.6 fLNormal 80.0-100.0[facility] Medical CenterComment on above:Performed By: #### 3051064, 5311645, 46868383, 4661952, 3256632, 04097693, 4746581, 4816789 ####[address] [address] Platelet mean volume (Bld) [Entitic vol]10.8 fLNormal6.4-10.8[facility] Medical CenterComment on above:Performed By: #### 1237732, 0655802, 84344137, 3144981, 1069957, 94071941, 6073860, 1806978 ####[address] [address]Ljrvazlng (Bld) [#/Vol]192.0 E9/L Wybihx819.0-500.0Prem[facility] Medical CenterComment on above:Performed By: #### 4093679, 8620663, 63850090, 0183558, 5953826, 45373656, 0285259, 2735212 ####[address] [address]IUI (Bld) [#/Vol]4.6 E12/LNormal4.3-5.9[facility] Medical CenterComment on above: Performed By: #### 3342497, 6431656, 31275147, 1509006, 5029656, 71043368, 4071472, 0825429 ####[address] [address]QYR corrected for nucl RBC Auto (Bld) [#/Vol]8.5 E9/LNormal 4.0-11.0[facility] Medical CenterComment on above:Result Comment: Slide reviewed by FREDRICK.Performed By: #### 6006879, 6414766, 61717179, 2874859, 4631379, 91057942, 4366552, 4899427 ####[facility] [address] [place], [place] [address]IZFQMNPURLukzdei By: SYSTEM SYSTEM on 11-10-2022 Albumin [Mass/Vol]4.6 g/dLNormal3.3 - 5.0 gm/dLFTMC RemisolAlbumin/Globulin [Mass ratio]1.5 {ratio}Normal1.1 - 2.2FT[facility] RemisolALP [Catalytic activity/Vol]41 [iU]/rVzqruj67 - 98 Int._Unit/LFTMC RemisolALT No additional P-5'-P [Catalytic activity/Vol]17 [iU]/dNormal6 - 46 Int._Unit/LFTMC RemisolAnion gap [Moles/Vol] 13 mmol/LNormal6 - 16 mEq/LFTMC RemisolAST [Catalytic activity/Vol]17 [iU]/d Normal5 - 43 Int._Unit/LFTMC RemisolBilirubin [Mass/Vol]0.5 mg/dLNormal0.0 - 1.1 mg/dLFTMC RemisolBilirubin.direct [Mass/Vol]mg/dLNormal0.1 - 0.4 mg/dLFTMC RemisolBilirubin.indirect [Mass or moles/Vol]Unable to Calculate mg/dLInvalid Interpretation Code0.1 - 0.9 mg/dLFTMC RemisolCalcium [Mass/Vol]9.7 mg/dLNormal 8.9 - 11.1 mg/dLFTMC RemisolChloride [Moles/Vol]105 mmol/BObgahe856 - 111 mmol/L [facility] RemisolCO2 [Moles/Vol]24 mmol/ATtbgbg20 - 31 mmol/LFTMC RemisolCreatinine [Mass/Vol]0.8 mg/dLNormal0.5 - 1.3 mg/dLFTMC RemisolGFR/1.73 sq M.predicted among non-blacks MDRD (S/P/Bld) [Vol rate/Area]105 mL/min/1.73 y6Wsglzc >=59mL/min/1.73 m2FTMC Chem SGlobulin (S) [Mass/Vol]3.1 g/dLNormal1.4 - 4.0 gm/dLFTMC RemisolGlucose [Mass/Vol]96 mg/sIUgkfzd22 - 199 mg/dLFTMC Remisol Lipase [Catalytic activity/Vol]28 U/FEfjdcd84 - 58 unit/LFTMC RemisolPotassium [Moles/Vol]3.8 mmol/LNormal3.5 - 5.3 mmol/LFTMC RemisolProtein [Mass/Vol]7.7 g/dLNormal6.0 - 7.8 gm/dLFTMC RemisolSodium [Moles/Vol]138 mmol/XQfjahc211 - 145 mmol/LFTMC RemisolTroponin I.cardiac [Mass/Vol]pg/mLLow10.10 - 27.10 pg/mLJ[facility]SON [facility] RemisolUrea nitrogen [Mass/Vol]13 mg/dLNormal5 - 21 mg/dLJACKSON [facility] RemisolUrea nitrogen/Creatinine [Mass ratio]16 mg/yhNmdedm67 - 20[facility] RemisolCOAGULATION Ordered By: Brittni Wren on 84-15-8112Vdzcuw D-dimer FEU (PPP) [Mass/Vol]ng/mL TWVSty795 - 500 ng/mL [facility] Auto CoagConsent for Treatmenton 41-49-4640Adlirvv for [id number]#1.00CD:127NormalPremier Health Upper Valley Medical CenterD-Dimeron 93-36-5714Tttgcn D-dimer FEU (PPP) [Mass/Vol]<215 Pah804-947IftllePremier Health Upper Valley Medical CenterComment on above:Result Comment: This assay is intended for use [...] infections, pneumonia, severe skin infections Liver cirrhosis PregnancyPerformed By: #### [id number], 4942143, [id number], 0036062, 7046074, 29482155, 9285183, 7177904 ####[facility] [address] [place], [place] [address]Pjvbmizhl Instructionson 19-37-8494Wpsfcgnne [id number]#1.00CD:127NormalAC[facility] Healthcare [facility] Clinical Summaryon [id number] Clinical Summary [address] [address] ED Clinical Summary Person Information Name: MAURY COLLAZO Shawn Lisa/[facility] Age: 22 Years : 2000 Sex: Female Language: Algerian PCP: Bella Camara MD Marital Status: Single [...] 11/10/2022 19:05:26 11/10/2022 19:05:26 11/10/2022 19:05:26 ADDRESS: [address] [place] [id number] [facility] DOC NOTES: MEDICAL INFORMATION: Prescriptions Given: New [...] Address: When: [place] [place] [address] [employer] (1) In 3 days 11/13/2022 Comments: Retrurn to the emergency room if your shortness of breath recurs, abdominal pain recurs or any new symptoms. DIAGNOSIS: 1:Abdominal pain; 2:Shortness of breathHeidirmproDustin Turner [facility] Medical West CenterED Note-Physicianon [id number] Note-PhysicianBasic Information Time Seen: Arunashanda VarmaMichael 11/10/2022 17:36 Chief Complaint patient c/o SOB [...] and Complexity of Problems Differential Diagnosis: [] [facility] Data External documents reviewed: [] My EKG [...] and her pain and nausea improved. The patientfeels comfortable going home. We will discharge patient [...] Stop date 11/10/22 17:47:00 EDT, STAT, Start date11/10/22 17:47:00 EDT, 11/10/22 17:47:00 EDT ketorolac, 30 [...] With When Contact I (more content not included)...Corey HospitalComment on above:Result Comment: Electronically Signed By: Michael Hannah M.D.\.aldo\Date and Time Signed: 11/10/2317:57 EDTED Patient Education Noteon 64-06-1026AT Patient Education NoteGastroenterology Abdominal Pain, Adult Pain in the abdomen [...] these instructions at home: Medicines ? Take mdcx-bwg-bpclqbp and prescription medicines only as told by [...] your condition for any changes. ? Take mate-nbg-cdjgaeo and prescription medicines only as told by [...] provider. Document Revised: 05/17/2020 Document Reviewed: 08/07/2019 [employer] AS Patient Education ? 2022 [employer]. Pulmonary Medicine Shortness of Breath, Adult [...] reaction (allergens) if you have allergies. Common allergensinclude pollen from grasses or trees and animal dander. ? Keep your living space clean and free of mold and dust. General instructions ? Pay attention to any changes in your symptoms. ? Take asdq-ofg-snslwus and prescription medicines only as told by [...] Call 911. ? D (more content not included)...J CarlosACMC Healthcare System Glenbeigh Patient Summaryon [id number] Patient Summary [address] [address] Patient Discharge Instructions Person Information Name: MAURY COLLAZO Age: 22 Years Arrival Date: 11/10/2022 15:56:06 Discharge Diagnosis: 1:Abdominal pain; 2:Shortness of breath Primary Care Physician: Hoa JASSO, Bella Shaw Provider Information Primary Provider: Michael Hannah M.D. [employer] As[employer]er:None The exam and treatment you received in the Emergency Department were for an urgent problem and are not intended as complete care. It is important that you follow up with a doctor, nurse practitioner,or physician?s quality assistant for ongoing care. If your symptoms [...] With: Address: When: Bella Camara [place] [address] [employer] (1) In 3 days 11/13/2022 Comments: [...] opioids can be used to help relieve qfiaoerp-lt-ftpbpq pain and are often prescribed following a [...] and have fewer risks and side effects. Optionsmay include: ? Pain relievers such as acetaminophen, [...] unused prescription opioids: Find your community drug take- back program or yourpharmacy mail-back program, or flush them down the toilet, following guidance from the Food and Drug Administration (www.fda.gov/Drugs/ResourcesForYou). ? Visit www.cdc.gov/drugoverdose to learn about the risks of opioids abuse and overdose. ? If you believe you may be struggling wi (more content not included)...Normal [facility] Medical CenterHEMATOLOGYOrdered By: [employer] on 11-10-2022 Basophils/100 WBC (Bld)0.5 %Normal0.0 - 2.0 %[facility] HemeAutoSSBasophils/Leukocytes Auto (Bld) [Pure # fraction]0.0 E9/LNormal0.0 - 0.2 E9/LFTMC HemeAutoSS Eosinophils/100 WBC (Bld)1.0 %Normal0.0 - 8.0 %[facility] HemeAutoSS Eosinophils/Leukocytes Auto (Bld) [Pure # fraction]0.1 E9/LNormal0.0 - 0.5 E9/L [facility] HemeAutoSSLymphocytes/100 WBC (Bld)26.5 %Ceyuch23.0 - 50.0 %[facility] HemeAutoSS Lymphocytes/Leukocytes Auto (Bld) [Pure # fraction]2.3 E9/LNormal1.0 - 4.0 E9/L [facility] HemeAutoSSMonocytes/100 WBC (Bld)5.2 %Normal4.0 - 14.0 %[facility] HemeAutoSS Monocytes/Leukocytes Auto (Bld) [Pure # fraction]0.4 E9/LNormal0.2 - 1.0 E9/L [facility] HemeAutoSSNeutrophils/100 WBC (Bld)66.8 %Xqtuoj14.0 - 75.0 %[facility] HemeAutoSS Neutrophils/Leukocytes Auto (Bld) [Pure # fraction]5.7 E9/LNormal2.0 - 7.5 E9/L [facility] HemeAutoSSHEMATOLOGYOrdered By: Bridget Omer on 07-32-3607Roathballlv distribution width (RBC) [Ratio]13.5 %Uchvik17.9 - 14.2 %[facility] HemeAutoSS Hematocrit (Bld) [Volume fraction]40.4 %Fhdqzm38.0 - 46.0 %[facility] HemeAutoSS Hemoglobin (Bld) [Mass/Vol]13.7 g/cQHccvpj14.0 - 16.0 gm/dLFTMC HemeAutoSSMCH (RBC) [Entitic mass]30.0 wzBbsgcj83.0 - 34.0 pgFTMC HemeAutoSSMCHC (RBC) [Mass/Vol]33.9 g/kSBrqlxi22.4 - 36.0 gm/dLJACKSON [facility] HemeAutoSSMCV (RBC) [Entitic vol] 88.6 kYOdieis24.0 - 100.0 fLJACKSON COUNTY MEMORIAL HOSPITAL [facility] HemeAutoSSPlatelet mean volume (Bld) [Entitic vol]10.8 fLNormal6.4 - 10.8 fLJACKSON COUNTY MEMORIAL HOSPITAL [facility] HemeAutoSSPlatelets (Bld) [#/Vol]192.0 E9/L Lmaajg960.0 - 500.0 E9/LFTMC HemeAutoSSRBC (Bld) [#/Vol]4.6 E12/LNormal4.3 - 5.9 E12/LFOKLAHOMA HOSPITAL ASSOCIATION HemeAutoSSWBC corrected for nucl RBC Auto (Bld) [#/Vol]8.5 E9/LNormal 4.0 - 11.0 E9/LFOKLAHOMA HOSPITAL ASSOCIATION HemeAutoSSComment on above:Result Comment: Slide reviewed by [facility] Panelon 33-91-6114Gcbgjrioj.indirect [Mass or moles/Vol]UTCAbnormal 0.1-0.9Premier Health Upper Valley Medical CenterComment on above:Result Comment: Result verified by Discern Rule. Performed result UTC (Unable to Calculate) was sent as an Alpha code due the inability to calculate a valid numeric value.Performed By: #### [id number], 2688618, 13971745, 5903571, 5754113, 82775718, 1160837, 4266053 ####[facility] [address] [place], [place] [address]Tlfyitj [Mass/Vol]4.6 g/dLNormal3.3-5.0Prem[facility] Health [facility] Valley Medical CenterComment on above:Performed By: #### 0957989, 3622168, 61397600, 6174778, 7658047, 80810409, 3279028, 4382437 ####[facility] [address] [place], [place] [address]Lvyqtfh/Globulin (S) [Mass conc ratio]1.5Normal 1.1-2.2FNewark HospitalComment on above:Performed By: #### 1651348, 6264133, 36723686, 9636934, 4095356, 16421997, 5680142, 2156087 ####[address] [address]RXP [Catalytic activity/Vol]41 Int._Unit/LSuhbga65-90SmjnzjPremier Health Upper Valley Medical CenterComment on above:Performed By: #### 8199005, 3900348, 80923484, 9682650, 8180664, 17426880, 9592764, 0148548 ####[address] [address]WQI No additional P-5'-P [Catalytic activity/Vol]17 Int._Unit/LNormal6-46Prem[facility] Medical CenterComment on above:Performed By: #### 4237878, 4564992, 29966500, 7511816, 2240668, 74038430, 5053161, 5339705 ####[address] [address]JDY [Catalytic activity/Vol]17 Int._Unit/LNormal5-43[facility] Comment on above:Performed By: #### 5627751, 0356132, 34459462, 9041762, 2370969, 13740524, 7492499, 3147519 ####[address] [address]Jdnzrcsdq [Mass/Vol]0.5 mg/dLNormal 0.0-1.1FNewark HospitalComment on above:Performed By: #### 6710178, 2699584, 51435220, 5149179, 4331088, 45726223, 9203583, 0763879 ####[address] [address]Yilbomkc (S) [Mass/Vol]3.1 g/dLNormal1.4-4.0Prem[facility] Valley Medical CenterComment on above: Performed By: #### 4578281, 5686161, 20955772, 8448455, 1282872, 12979577, 9181837, 5527532 ####Chan [address], [place] [address]Jhwyxwm [Mass/Vol]7.7 g/dLNormal6.0-7.8Prem[facility] Medical CenterComment on above:Performed By: #### 1134501, 0970466, 97927820, 0168228, 9238624, 08558563, 6106623, 8747958 ####[facility] [address] [place], [place] [address]Porrsdlqc.direct [Mass/Vol]mg/dL Normal0.1-0.4FNewark HospitalComment on above:Performed By: #### 7440338, 0091109, 56361705, 0731112, 3650052, 46812243, 5764162, 6558798 ####[facility] [address] [place] [address] Lipase Levelon 19-75-8342Umpkpj [Catalytic activity/Vol]28 U/BCodjfs07-36EywsrbPremier Health Upper Valley Medical CenterComment on above:Performed By: #### 7575392, 9351669, 10187181, 9712319, 9593584, 06519876, 3747010, 3877049 ####[facility] [address] [place], [place] [address]Lsggwidk Note-Nurseon 13-23-6715Rtplbfxh Note-NursePatient brought back to ED 11 at this time from the waiting roomNoUC Medical CenterEROLOGYOrdered By: Brittni Wren on 37-95-7021CNW.beta subunit (U) [Moles/Vol]NegativeNoAtrium Health [facility] Man SeroTroponin 0 Hr.on 09-49-2065Julsbdqf I.cardiac [Mass/Vol]ng/mLLow10.10-27.10Prem[facility] Medical CenterComment on above:Result Comment: The 95% CI (Confidence Interval) PPV (Positive Predictive Value) for myocardial infarction in females is 38 pg/mL, in males 51 pg/mL. The results should be used in conjunction with cli nical conditions of myocardial infarction. (Access High Sensitivity Troponin I Instructions For Use, Richelle Yvan, November 2017)Performed By: #### 9348580, 5558824, 02961082, 7805921, 1791460, 25293125, 4063608, 2447909 ####Chan [address] [address]J BetaHcg Qualon 85-13-0703XKI.beta subunit (U) [Moles/Vol]NegativeNormalPremier Health Upper Valley Medical CenterComment on above:Performed By: #### [id number] ####[address] [address]YF With Cult Reflexon 29-44-6351Yjgzuxwsj Ql (U)Negative NormalNegativePremier Health Upper Valley Medical CenterComment on above:Performed By: #### [id number] ####[address] [address]Akakofs (U)CLEARNormalClearPremier Health Upper Valley Medical CenterComment on above: Performed By: #### [id number] ####[address] [address]Eeked (U)YELLOWNormalYellowPremier Health Upper Valley Medical CenterComment on above:Performed By: #### 31690455 ####[address] [address]Ralibisrzi cells.squamous LM.HPF (Urine sed) [#/Area]8-3Pgyyus9-6Scpojv [facility]enburg CenterComment on above:Performed By: #### [id number] ####[address] [address]Dilodek Test strip (U) [Mass/Vol]NegativeNormal NegativePremier Health Upper Valley Medical CenterComment on above:Performed By: #### 55938285 ####[address] [address] Hemoglobin Ql (U)NegativeNormalNegativePremier Health Upper Valley Medical CenterComment on above:Performed By: #### 18086235 ####[address] [address]Hsfsvyj (U) [Mass/Vol]NegativeNormalNegativePremier Health Upper Valley Medical CenterComment on above:Performed By: #### 61869333 ####[address] [address] [place].plasma/[place].RBC (Bld) [Mass ratio]8-1Necdbj7-0Wwrwyz [facility] CenterComment on above:Performed By: #### 38725400 ####[address] [address]Eeoxoko Ql (U)NegativeNormal NegativePremier Health Upper Valley Medical CenterComment on above:Performed By: #### 81843659 ####[address] [address]dM (U)6.0 [pH]Invalid Interpretation Code5.0-9.0Prem[facility] Medical CenterComment on above:Performed By: #### 12804981 ####[address] [address]Kepknuh (U) [Mass/Vol]NegativeNormal NegativePremier Health Upper Valley Medical CenterComment on above:Performed By: #### 17853955 ####[address] [address] Specific gravity (U) [Rel density]1.010Invalid Interpretation Code1.005-1.030 [facility] Medical CenterComment on above:Performed By: #### 55621272 ####[address] [address]Tuze of Urine collection methodClean CatchNormalPremier Health Upper Valley Medical CenterComment on above:Performed By: #### 19121875 ####[address] [address]Rhfnoeigyypw Qn (U)0.2 {Elizabeth'U}/dLNormal0.0-1.0 [facility] Medical CenterComment on above:Performed By: #### [id number] ####[address] [address]CYD Auto Ql (U)NegativeNormalNegativeSwain Community Hospitaler [facility] CenterComment on above: Performed By: #### [id number] ####Chan [facility] [address] [place], [place] [address]AJG LM.HPF (Urine sed) [#/Area]1-7Czxlwp7-9Eabxyd [facility] CenterComment on above:Performed By: #### [id number] ####Dustin [facility] [address] [place], [place] [address]FEYUICSOLZ Ordered By: Brittni Wren on 52-39-5188Lyycsdtlc Ql (U)Negative (11/10/22 5:44 PM)NormalNegativeJ[facility]SON [facility] UA Auto SSClarity (U)Clear (11/10/22 5:44 PM)NormalClearFOKLAHOMA HOSPITAL ASSOCIATION UA Auto SSColor (U)Yellow (11/10/22 5:44 PM)NormalYellowJACKSON COUNTY [facility]ORIAL [facility]OS[facility] UA Auto SSEpithelial cells.squamous LM.HPF (Urine sed) [#/Area]0-2 /HPFNormal0-2/HPFJACKSON [facility]OS[facility] UA Auto SSGlucose Test strip (U) [Mass/Vol]Negative (11/10/22 5:44 PM)NormalNegativeJACKSON [facility] UA Auto SSHemoglobin Ql (U)Negative (11/10/22 5:44 PM)NormalNegativeJ[facility] UA Auto SSKetones (U) [Mass/Vol]Negative (11/10/22 5:44 PM)NormalNegativeJACKSON [facility] UA Auto SSLithium.plasma/[place].RBC (Bld) [Mass ratio]0-3 /HPFNormal0-3/HPFFT UA Auto SSNitrite Ql (U)Negative (11/10/22 5:44 PM)NormalNegativeJ[facility] UA Auto SSpH (U)6.0 *NA* (11/10/22 5:44 PM)Invalid Interpretation Code5.0 - 9.0[facility] UA Auto SSProtein (U) [Mass/Vol]Negative (11/10/22 5:44 PM)NormalNegativeJACK[facility] UA Auto SSSpecific gravity (U) [Rel density] 1.010 *NA* (11/10/22 5:44 PM)Invalid Interpretation Code1.005 - 1.030[facility] UA Auto SSUA Spec DescClean Catch (11/10/22 5:44 PM)NormalJACKSON COUNTY [facility]IAL [facility]OSP[facility] UA Auto SSUrobilinogen Qn (U)0.3401238 {Elizabeth'U}/dL Normal0.0 - 1.0 EU/dLJACKSON [facility] UA Auto SSWBC Auto Ql (U)Negative (11/10/22 5:44 PM)NormalNegativeJ[facility] UA Auto SSWBC LM.HPF (Urine sed) [#/Area]0-5 /HPFNormal0-5/HPFJACKSON [facility]IAL [facility]OS[facility] UA Auto SSeGFRon 09-38-3926CQG/1.73 sq M.predicted among non-blacks MDRD (S/P/Bld) [Vol rate/Area]105 mL/min/1.73 t9Tjbiwx>=59Prem[facility] Medical CenterComment on above:Order Comment: Order added by Discern Expert.Result Comment: Chronic kidney disease could be indicated at eGFR's of less than 60 mL/min/1.73m2. Kidney failure is indicated at less than 15 mL/min/1.73m2.Performed By: #### 4401184, 3198099, 04019275, 1642283, 6945347, 36688637, 2770269, 1586333 ####Chan [facility] [address] [place], [place] [address]Hippmujgj Auto (Bld) [#/Vol]Ordered By: Phillip Shaw on 59-26-2441Sstazivdv (Bld) [#/Vol]0.0 10*3/uL0.0-0.2FOhioHealth Grant Medical CenterBasophils/100 WBC Auto (Bld)Ordered By: Phillip Shaw on 66-76-7096Xmiqphhgt/100 WBC (Bld)0.4 %.[facility] Creatinine and Glomerular filtration rate.predicted panel (S/P/Bld)Ordered By: Phillip Shaw on 36-14-1677Yhswtfttyp [Mass/Vol]0.72 mg/dL0.44-1.03[facility] HospitalEosinophils Auto (Bld) [#/Vol]Ordered By: Phillip Shaw on 00-15-2055Bahgwsxkatn (Bld) [#/Vol]0.0 10*3/uL0.0-0.45[facility] HospitalEosinophils/100 WBC Auto (Bld)Ordered By: Phillip Shaw on 26-57-2638Thtgyssioke/100 WBC (Bld)0.1 %.[facility] HospitalErythrocyte distribution width Auto (RBC) [Ratio]Ordered By: Phillip Shaw on 22-07-6400Fcnhuldyhjg distribution width (RBC) [Ratio]15.1 % 11.9-15.3FOhioHealth Grant Medical CenterEstimated glomerular filtration rate (GFR) non- AmericanOrdered By: Phillip Shaw on 12-87-3952TXX/1.73 sq M.predicted among non-blacks MDRD (S/P/Bld) [Vol rate/Area]> 60 mL/MinLancaster Municipal HospitalHematocrit Auto (Bld) [Volume fraction]Ordered By: Phillip Shaw on 85-39-2406Opvxbsaxuz (Bld) [Volume fraction]37.6 %34.0-46.4 [facility] HospitalHemoglobin [Mass/volume] in BloodOrdered By: Phillip Shaw on 04-10-6944Phkbiprwrm (Bld) [Mass/Vol]12.4 g/dL11.8-15.4 [facility] HospitalLaboratory - Chemistry and Chemistry - challengeOrdered By: Phillip Shaw on 48-75-1018Jkvdderslni peptide B (Bld) [Mass/Vol]34.0 pg/mL5-100[facility] HospitalLeukocytes [#/volume] corrected for nucleated erythrocytes in Blood by Automated counOrdered By: Phillip Shaw on 69-51-3147XOT corrected for nucl RBC Auto (Bld) [#/Vol]11.1 10*3/uL3.8-11.6FOhioHealth Grant Medical CenterLymphocytes Auto (Bld) [#/Vol] Ordered By: Phillip Shaw on 69-34-5381Yypxsksqyzf (Bld) [#/Vol]1.0 10*3/uL 1.00-4.8[facility] HospitalLymphocytes/100 WBC Auto (Bld)Ordered By: Phillip Shaw on 65-37-9530Elxslhbsyel/100 WBC (Bld)9.1 %.[facility] HospitalH Auto (RBC) [Entitic mass]Ordered By: Phillip Shaw on 70-26-0910JDL (RBC) [Entitic mass]28.8 pg24.7-34.3FOhioHealth Grant Medical CenterMCHC Auto (RBC) [Mass/Vol]Ordered By: Phillip Shaw on 57-97-7633GHTF (RBC) [Mass/Vol]32.9 g/dL32.0-35.0[facility] HospitalMCV Auto (RBC) [Entitic vol]Ordered By: Phillip Shaw on 45-64-0023KHQ (RBC) [Entitic vol]87.5 pR95-968ZhnddqndnLancaster Municipal HospitalMonocyte distribution width [Entitic volume] in Blood by AutomatedOrdered By: Phillip Shaw on 04-12-2022 Monocyte distribution width Auto (Bld) [Entitic vol]22.31 %0.00-20.00[facility] HospitalComment on above:For adults in ED, MDW > 20.0 may be associated with a higher risk of sepsis during the first 12 hrs of hospital admissionMonocytes Auto (Bld) [#/Vol]Ordered By: Phillip Shaw on 04-12-2022 Monocytes (Bld) [#/Vol]1.1 10*3/uL0.0-0.8[facility] Monocytes/100 WBC Auto (Bld)Ordered By: Phillip Shaw on 04-12-2022 Monocytes/100 WBC (Bld)10.3 %.[facility] HospitalNeutrophils Auto (Bld) [#/Vol]Ordered By: Phillip Shaw on 83-71-8639Lbfbippahat (Bld) [#/Vol] 8.9 10*3/uL1.8-7.7FOhioHealth Grant Medical CenterNeutrophils/100 WBC Auto (Bld)Ordered By: Phillip Shaw on 20-38-3803Iynakjnbzjl/100 WBC (Bld)80.1 %. [facility] HospitalNo Panel InformationOrdered By: Phillip Shaw on 15-83-5024C-Dimer Quantitative (PE/DVT)< 200 ng/mL0-243[facility] HospitalComment on above:The reference range for D-dimer is <243 ng/mL [...] be increased in hospitalized patients due toco-morbid conditions.Estimated GFR ()> 60 mL/MinLancaster Municipal HospitalComment on above: GFR estimated reference range: According to KDOQI guidelines, <60 ml/min/1.73m2 is sufficient todiagnose a patient with chronic kidney disease.Pharmacy Creatinine Clearance (Aqoo913.02[facility] HospitalNucleated erythrocytes [Presence] in Blood by Automated countOrdered By: Phillip Shaw on 06-50-9868Zsxulhqqc RBC Auto Ql (Bld)0.1 /100{WBC}0-0.5FOhioHealth Grant Medical CenterPlatelet mean volume Auto (Bld) [Entitic vol]Ordered By: Phillip Shaw on 22-42-1447Ljtooadv mean volume (Bld) [Entitic vol]11.4 fL6.3-10.7 [facility] HospitalPlatelets Auto (Bld) [#/Vol]Ordered By: Phillip Shaw on 87-48-9395Quawhrlbh (Bld) [#/Vol]181 10*3/nM128-323SddgypuhxLancaster Municipal HospitalRBC Auto (Bld) [#/Vol]Ordered By: Phillip Shaw on 06-94-9945ARP (Bld) [#/Vol]4.30 10*6/uL3.60-5.00[facility] Medical Centererum or plasma anion gap determinationOrdered By: Phillip Shaw on 81-36-1477Ubwao gap [Moles/Vol]13.1 mmol/L6.0-15.0[facility] Medical Centererum or plasma calcium measurement (mass/volume)Ordered By: Phillip Shaw on 54-51-7568Kfwiesy [Mass/Vol]8.9 mg/dL8.2-10.2FChillicothe Hospitalerum or plasma chloride measurement (moles/volume)Ordered By: Phillip Shaw on 82-71-2444Dwpgcklk [Moles/Vol]101 mmol/R78-520NbobcszrbUniversity Hospitals Beachwood Medical Centererum or plasma glucose measurement (mass/volume)Ordered By: Phillip Shaw on 85-43-4792Pcguqzj [Mass/Vol]108 mg/mX11-861EghayurjqLancaster Municipal HospitalComment on above:ADA recommended reference rangeRandom Glucose Reference Range is dependent on time and content of last meal. Glucose of more than 200 mg/dL in a nonstressed, ambulatory subject supports the diagnosisof Diabetes Mellitus.Serum or plasma potassium measurement (moles/volume)Ordered By: Phillip Shaw on 70-02-7118Rpaixcnrg [Moles/Vol]3.8 mmol/L3.5-5.1FChillicothe Hospitalerum or plasma sodium measurement (moles/volume)Ordered By: Phillip Shaw on 06-68-9111Mxdpzb [Moles/Vol]133 mmol/B053-326CllvwvwmpUniversity Hospitals Beachwood Medical Centererum or plasma total carbon dioxide measurement (moles/volume)Ordered By: Phillip Shaw on 05-44-5018KU7 [Moles/Vol]22.7 mmol/L22.0-30.0[facility] Serum or plasma urea nitrogen measurement (mass/volume)Ordered By: Phillip Shaw on 40-91-5381Rkzr nitrogen [Mass/Vol]7 mg/dL9-23[facility] HospitalTroponin I.cardiac [Mass/volume] in Serum or Plasma by High sensitivity methodOrdered By: Phillip Shaw on 01-64-5746Najqyyxf I.cardiac High sensitivity method [Mass/Vol]5 pg/mL0-15[facility] WBC Auto (Bld) [#/Vol]Ordered By: Phillip Shaw on 25-28-2503MYS (Bld) [#/Vol]11.1 10*3/uL3.8-11.6FOhioHealth Grant Medical CenterCOVID CepheidOrdered By: Taran Rea on 02-26-8341LJXT-CoV-2 (COVID-19) Ab IA QlNegative NegativeLancaster Municipal HospitalComment on above:This is a duplicate Cepheid Xpert Xpress CoV-2/Flu/RSV Plus RNA by RT-PCR result to be used for stat istical tracking purpose only.SARS-CoV-2 (COVID-19) RNA BARBI+probe Ql (Unsp spec) [facility] HospitalXR Spine Lumbar 4+ Views*on 57-53-4610WP Spine Lumbar 4+ Views*CLINICAL HISTORY: Pain and stiffness COMPARISON: NONE FINDINGS: [...] and signed by JOVITA MA on 08/21/2021 1223NormalNortprescott va medical centern [facility] [id number] HEALTHHNO ID: [id number] Author: RT Kristin(R) Service: Radiology Author Type: Gameplay Programmer Type: Allied Health Filed: 10/04/2020 10:48 AM Note Text: Radiology Service Progress Note PATIENT NAME: aMury Collazo DATE OF SERVICE: October 04, 2020 [...] BY: RT Kristin(R) October 04, 2020 10:26 AMNSt. [facility] HEALTHHNO ID: [id number] Author: RT Kristin(R) Service: Radiology Author Type: Gameplay Programmer Type: Allied Health Filed: 10/04/2020 9:27 AM Note Text: Waiting for HCG results to come back before performing exam Bing Killian(Batsheva)[facility] NOTEon 54-04-7900GG NOTEHNO ID: [id number] Author: Samara Orozco RN Service: ? Author [...] Pt ambulated with steady gait out of ED.[facility] NOTEHNO ID: [id number] Author: Samara Orozco RN Service: ? Author Type: Registered Nurse Type: ED Notes Filed: 10/04/2020 11:38 AM Note Text: Pt resting comfortably in bed. Comfort measures offered. Call light within reach. No distress noted at this time. Safety maintained and will continue to monitor patient.[facility] NOTEHNO ID: [id number] Author: Samara Orozco RN Service: ? Author Type: Registered Nurse Type: ED Notes Filed: 10/04/2020 11:38 AM Note Text: Pt resting comfortably in bed. Comfort measures offered. Call light within reach. No distress noted at this time. Safety maintained and will continue to monitor patient.[facility] NOTEHNO ID: [id number] Author: Akin Mcclain RN Service: ? Author Type: Registered Nurse Type: ED Notes Filed: 10/04/2020 9:21 AM Note Text: PO fluids providedNoReretualatinn HospitalED NOTEHNO ID: [id number] Author: Akin Mcclain RN Service: ? Author [...] her head or LOC. +MSP; gate is steady.NormalSaratogaan HospitalED PROV NOTEon 79-89-6090ON PROV NOTEHNO ID: [id number] Author: Al Castellanos MD Service: Emergency Medicine [...] IV drug use. History provided by: Patient park interpreter used: No History reviewed. No pertinent [...] neck pain and neck stiffness. Skin: Negative. Psychiatric/Behavioral: Negative. All other systems reviewed and are [...] (AL CASTELLANOS at 10/05/19 (more content not included)...NormalLutprescott va medical centeran HospitalHCG Qual, Urineon 53-93-2002Fogr HCG ( test) Ql (U)NegativeNormalNegativeJoint Township District Memorial Hospital HospitalComment on above: Performed By: #### [facility] [place] #### [address] [address] [place] FEMUR 2V AP/LAT RTon [id number] FEMUR 2V AP/LAT RT* * *Final Report* * * DATE OF [...] No acute bone or joint space abnormality. Stamp Mounter: ROSA Transcribe Date/Time: Oct 04 2020 10:50A Dictated by : Anca MACKENZIE MD This examination was interpreted and the report reviewed and electronically signed by: Anca MACKENZIE MD on Oct 04 2020 10:55AM EST [id number] CenterXR LUMBAR 3V AP/LAT/L5-S1on [id number] LUMBAR 3V AP/LAT/L5-S1* * *Final Report* * * DATE OF [...] vertebrae. Anatomic Variant: Transitional L5 vertebral body. Stamp Mounter: ALHAJIFiix Transcribe Date/Time: Oct 04 2020 10:56A Dictated by : Anca MACKENZIE MD This examination was interpreted and the report reviewed and electronically signed by: Anca MACKENZIE MD on Oct 04 2020 10:58AM EST [id number] PELVIS 1V APon [id number] PELVIS 1V AP* * *Final Report* * * DATE OF [...] No acute bone or joint space abnormality. Stamp Mounter: PSCB Transcribe Date/Time: Oct 04 2020 10:50A Dictated by : Anca MACKENZIE MD This examination was interpreted and the report reviewed and electronically signed by: Anca MACKENZIE MD on Oct 04 2020 10:55AM EST [id number] Clinic [facility] 1 VIEWon [id number] 1 VIEWMRN: [id number] Patient Name: MAURY COLLAZO STUDY: CHEST 1 VIEW; 10/01/2020 7:54 am INDICATION: cough. COMPARISON: None. ACCESSION NUMBER(S): [id number] ORDERING CLINICIAN: ERON JONES TECHNIQUE: A portable [...] cardiopulmonary disease. Electronically signed by: LARS DAMICO MDFox Chase Cancer CenterCORONAVIRUS 2019 BY PCRon [id number]-CoV-2 (COVID-19) RNA BARBI+probe Ql (Unsp spec)Not detectedNormalNot DetectedBanner Fort Collins Medical Center Comment on above:Result Comment: . This assay is designed to detect the RdRp gene of SARS-CoV-2 via nucleic acid amplification. A Not Detected result does not preclude COVID-19 infection since the adequacy of sample collection and/or low viral burden may result in presence of viral nucleic acids below the clinical sensitivity of this test method. Fact sheet for providers: www.fda.gov/media/478495/download Fact sheet for patients: www.fda.gov/media/894688/download This test has received FDA Emergency Use Authorization (EUA) and has been verified by [facility] ([facility]). This test is only authorized for the duration of time that circumstances exist to justify the authorization of the emergency use of in vitro diagnostic tests for the detection of SARS-CoV-2 virus and/or diagnosis of COVID-19 infection under section 564(b)(1) of the Act, 21 U.S.C. 360bbb-3(b)(1), unless the authorization is terminated or revoked sooner. [facility] is certified under CLIA-88 as qualified to perform high complexity testing. Testing is performed in the [facility] laboratory located at [address] [place] [address].Performed By: #### COV19 #### [address] [id number] OF SYMPTOM ONSET [YYYYMMDD]?[id number] Hospital CentralComment on above:Performed By: #### COV19 #### [address] [id number] Specimen SourceNasal, NasopharyngealNoMemorial Hospital CentralComment on above:Performed By: #### COV19 #### [address] [id number] 19 Resultson [id number]-CoV-2 (COVID-19) RNA BARBI+probe Ql (Unsp spec)NEGATIVE COVID-19 Test Coronaviruses are common world-wide and [...] be contacted by the [facility] to see if any of your close [...] or Naproxen (Aleve) can also be used. Ibid-jtn-trygvdx cough and cold medicines can be used according to the instructions on the package. Some azfm-wit-yidiewb medicines also contain acetaminophen. Make sure you [...] water are not available, use alcohol-based hand exhibits manager. Avoid touching your eyes, nose, and [...] gone for 24 reginald (more content not included)...[facility] Cancer CenterProvider Note - ED v2on 10-01-2020 Provider Note - ED h5Ilrxezen Note - ED v2: Chart Review: ED [...] and medical, surgical, family and social history ALLERGIES/INTOLERANCES: Allergy Allergen: penicillin Type: Drug Reaction: Rash HEALTH HISTORY: No documented data. OUTPATIENT MEDICATIONS: Home Medications Review Status for Reconciliation: Complete Med Status: Patient Currently Takes Medications Drug Name: Kyakami Instructions: null Drug Name: benzonatate 100 mg oral capsule Instructions: 1 cap(s) orally every 8 hours, As Needed SIGNIFICANT EVENTS: No documented data. VACUUM METALIZING SUPERVISOR: Is : no(1) Is : no(1) REVIEW [...] SIGNS: T PRBP SpO2O2(LPM) %FiO2 Method 01-Oct-2020 07:27:[id number]/70 98 room air, no respiratory support PHYSICAL [...] with cough, not at (more content not included)...[facility] Cancer CenterRisk Screen - Adult Emergencyon 57-05-3003Fota Screen - Adult EmergencyPreferred Language: Preferred Language: Preferred Language for Discussing Health Care (patient/designee)Algerian Advanced Directives: Advance Directive/DNRno Family Violence Adult: [...] demonstration; verbal instruction Cultural Considerationsnone Developmental Considerationsnone Hindu Considerationsnone Learning Assessment (Other Learner): Learning Assessment [...] injured patient at a Trauma Center ([facility]/[place]): no Electronic Signatures: Hailey Shepard (STAFF N) (Signed 01-Oct-2020 07:27) Authored: Preferred Language, Advanced Directives, Family Violence Adult, Learning Assessment (Patient), Learning Assessment (Other Learner), Pressure Injury/TB/Substance, Pressure Injury, CAGE Last Updated: 01-Oct-2020 07:27 by Hailey Shepard (STAFF N)[facility] Cancer CenterTriage - EDon 13-22-5595Dzxwil - EDQuick Triage: Are You no Have You Given [...] Accompanied By: self Language: Spoken Language Preferred: Algerian Reading Language Preferred: Algerian Surveyor Requested: no medical interpreter was requested MDRO: History of MDRO: [...] Past Medical History Reviewedyes Electronic Signatures: Hailey Sehpard (STAFF N) (Signed 01-Oct-2020 07:32) Entered: Risk Screens, Pain, Arrival, ABCD, Immunizations, Travel History, Chart Review, Scores, Past Medical History Authored: Quick Triage, Risk Screens, Pain, Arrival, ABCD, Immunizations, Travel History, Chart Review, Scores, Past Medical History Last Updated: 01-Oct-2020 07:32 by Hailey Shepard (STAFF N)[facility] Cancer CenterCBC AUTO DIFFon 43-93-0267Qtgawrcdu #/vol (Bld)0.0 103/ulNormal0.0-0.1The [facility] GeneralComment on above:Performed By: #### CBC #### [facility] [address] [address] Dianne KarenBasophils/100 WBC (Bld)0.4 %Normal0.2-2.0[facility] Comment on above:Performed By: #### CBC #### [facility] [address] [address] Dianne KarenEosinophils #/vol (Bld)0.0 103/ulNormal0.0-0.7The [facility] Comment on above:Performed By: #### CBC #### [facility] [address] [address] Dianne KarenEosinophils/100 WBC (Bld)0.4 %Critically low0.9-7.0The [facility] GeneralComment on above:Performed By: #### CBC #### [facility] [address] [address] Dianne KarenErythrocyte distribution width Ratio (RBC)12.9 %Ythxff52.0-15.0The [facility] GeneralComment on above:Performed By: #### CBC #### [facility] [address] [place] [address] Dianne KarenHematocrit Volume Fraction (Bld)38.9 %Vhpkuk20.0-48.0The [facility] GeneralComment on above:Performed By: #### CBC #### [facility] [address] [place] [address] Dianne KarenHemoglobin mass conc (Bld)13.4 g/kKFmeags19.0-16.0The [facility] GeneralComment on above:Performed By: #### CBC #### [facility] [address] [place] [address] Dianne KarenIG #0.03 10e3/ulNormal0.00-0.03The [facility] GeneralComment on above:Performed By: #### CBC #### [facility] [address] [place] [address] Dianne KarenIG %0.3 %Normal0.0-0.5The [facility] GeneralComment on above: Performed By: #### CBC #### [facility] [address] [place] [address] Dianne KarenLymphocytes #/vol (Bld)2.1 103/ulNormal1.2-3.8The [facility] Comment on above:Performed By: #### CBC #### [facility] [address] [place] [address] Dianne KarenLymphocytes/100 WBC (Bld)20.3 %Critically low20.5-60.0The [facility] GeneralComment on above:Performed By: #### CBC #### [facility] [address] [place] [address] Dianne KarenMANUAL DIFF REQNONormalThe [facility] GeneralComment on above: Performed By: #### CBC #### [facility] [address] [place] [address] Dianne KarenMCH Entitic mass (RBC)30.4 qyDasuyr66.7-34.0[facility] Comment on above:Performed By: #### CBC #### [facility] [address] [id number] Dianne KarenMCHC mass conc (RBC)34.4 g/hTKrovzk62.9-35.2The [facility] Comment on above:Performed By: #### CBC #### [facility] [address] [place] [address] Dianne KarenMCV Entitic volume (RBC)88.2 wQYumeko06.0-99.0The [facility] Comment on above:Performed By: #### CBC #### [facility] [address] [place] [address] Dianne KarenMonocytes #/vol (Bld)0.6 103/ulNormal0.3-0.8ThSelect Medical Specialty Hospital [facility] Comment on above:Performed By: #### CBC #### [facility] [address] [place] [address] Dianne KarenMonocytes/100 WBC (Bld)5.7 %Normal1.7-12.0[facility] Comment on above:Performed By: #### CBC #### [facility] [address] [place] [address] Dianne KarenNeutrophils #/vol (Bld)7.4 103/ulCritically high1.4-6.5The [facility] GeneralComment on above:Performed By: #### CBC #### [facility] [address] [place] [address] Dianne KarenNeutrophils/100 WBC (Bld)72.9 %Mariwr41.0-75.0[facility] Comment on above:Performed By: #### CBC #### [facility] [address] [place] [address] Dianne KarenPlatelet mean volume Entitic volume (Bld)12.5 fLNormal9.5-13.5The [facility] GeneralComment on above:Performed By: #### CBC #### [facility] [address] [place] [address] Dianne KarenPlatelets #/vol (Bld)192 103/keSvcizf003-491Tyh [facility] Comment on above:Performed By: #### CBC #### [facility] [address] [place] [address] Dianne KarenRBC #/vol (Bld)4.41 106/ulNormal4.20-5.40The [facility] Comment on above:Performed By: #### CBC #### [facility] [address] [place] [address] Dianne KarenWBC #/vol (Bld)10.1 103/ulNormal4.0-11.0[facility], AvonComment on above:Performed By: #### CBC #### [facility] [address] [place] [address] Dianne KarenER URINE PROFILEon 34-55-8543Hliadbzbf mass concSMALLNormalNEGATIVE [facility], AvonComment on above:Performed By: #### ERUR #### [facility] [address] [place] [address] Dianne KarenBLOODNegativeNormalNEGATIVESelect Medical [facility], AvonComment on above: Performed By: #### ERUR #### [facility] [address] [place] [address] Dianne KarenClarity Nom (U)CLEARNormalThe [facility] GeneralComment on above: Performed By: #### ERUR #### [facility] [address] [place] [address] Dianne KarenColor Nom (U)YELLOWNormalYELLOWSelect Medical [facility] Hospital, AvonComment on above:Performed By: #### ERUR #### [facility] [address] [place] [address] Dianne KarenERUAHDA micrscopic examination will be performed if indicated.Normal The [facility] GeneralComment on above:Performed By: #### ERUR #### [facility] [address] [place] [address] Dianne KarenGlucose mass concNegativeNormalNEGATIVESelect Medical [facility], AvonComment on above:Performed By: #### ERUR #### [facility] [address] [place] [address] Dianne KarenKetones Ql (U)>=80NormalNEGATIVESelect Medical [facility] HospitalComment on above:Performed By: #### ERUR #### [facility] [address] [place] [address] Dianne KarenNitrite Ql (U)NegativeNormalNEGATIVESelect Medical [facility] HospitalComment on above:Performed By: #### ERUR #### [facility] [address] [place] [address] Dianne KarenpH (Bld)6.5Joeytd1-5Xgd [facility] HospitalComment on above:Performed By: #### ERUR #### [facility] [address] [place] [address] Dianne KarenProtein mass conc (U)TRACENormKettering Health Greene MemorialComment on above:Performed By: #### ERUR #### [facility] [address] [place] [address] Dianne KarenSPEC GRAVITY1.666Wlqdsb6.005-<=1.025The [facility]camore HospitalComment on above:Performed By: #### ERUR #### [facility] [address] [place] [address] Dianne KarenUR MICRO INDNOT INDICATEDTuscarawas HospitalComment on above:Performed By: #### ERUR #### [facility] [address] [place] [address] Dianne KarenUrobilinogen Qn (U)0.2 EU/dlTuscarawas HospitalComment on above:Performed By: #### ERUR #### [facility] [address] [place] [address] Dianne KarenWBC #/vol (Bld)NegativeNormalNEGATIVESelect Medical Specialty [facility] HospitalComment on above:Performed By: #### ERUR #### [facility] [address] [place] [address] Dianne KarenPROF 14(COMP METB)on 58-62-4075Fqxapgk mass conc3.8 g/dLNormal 3.5-5.0[facility] HospitalComment on above:Performed By: #### CMP #### [facility] [address] [address] Dianne KarenAlbumin/Globulin mass ratio1.0 {ratio}NormalThe [facility] Comment on above:Performed By: #### CMP #### [facility] [address] [place] [address] Dianne KarenALP enzyme act/vol53 U/BFvbqrt49-796Pyp [facility] GeneralComment on above:Performed By: #### CMP #### [facility] [address] [address] Dianne KarenALT enzyme act/vol25 U/LNormal9-52The [facility] GeneralComment on above:Performed By: #### CMP #### [facility] [address] [place] [address] Dianne KarenAnion gap molar conc13.4 mmol/LNormalThe [facility] GeneralComment on above:Performed By: #### CMP #### [facility] [address] [place] [address] Dianne KarenAST enzyme act/vol17 U/SZjjfbt12-76Iik [facility] GeneralComment on above:Performed By: #### CMP #### [facility] [address] [place] [address] Dianne KarenBilirubin Ql (U)0.5 mg/dLNormal0.2-1.3The [facility] GeneralComment on above:Performed By: #### CMP #### [facility] [address] [place] [address] Dianne KarenCalcium mass conc9.6 mg/dLNormal8.4-10.2The [facility] GeneralComment on above:Performed By: #### CMP #### [facility] [address] [place] [address] Dianne KarenChloride molar dlbw269 mmol/GOdhbzr42-178Xgl [facility] Comment on above:Performed By: #### CMP #### [facility] [address] [place] [address] Dianne KarenCO2 molar conc24.1 mmol/VRijeie92.0-30.0The [facility] GeneralComment on above:Performed By: #### CMP #### [facility] [address] [address] Dianne KarenCreatinine mass conc0.64 mg/dLNormal0.52-1.04[facility] Comment on above:Performed By: #### CMP #### [facility] [address] [place] [address] Dianne KarenEGFR-AF ARGENTINE>60Normal>=60The [facility]camore HospitalComment on above: Performed By: #### CMP #### [facility] [address] [address] Dianne KarenEGFR-NON AF ARGENTINE>60Normal>=60The [facility] GeneralComment on above:Performed By: #### CMP #### [facility] [address] [place] [address] Dianne KarenGlobulin mass conc (S)3.9 g/dLNormalThe [facility] GeneralComment on above:Performed By: #### CMP #### [facility] [address] [place] [address] Dianne KarenGlucose mass conc76 mg/gJXucfwq93-473Znf [facility] GeneralComment on above:Performed By: #### CMP #### [facility] [address] [place] [address] Dianne KarenPotassium molar conc3.5 mmol/LNormal3.4-5.0[facility] Comment on above:Performed By: #### CMP #### [facility] [address] [place] [address] Dianne KarenProtein mass conc7.7 g/dLNormal6.1-8.2The [facility] GeneralComment on above:Performed By: #### CMP #### [facility] [address] [place] [address] Dianne KarenSodium molar unig987 mmol/LCritically rar773-340Kzy [facility] GeneralComment on above:Performed By: #### CMP #### [facility] [address] [place] [address] Dianne KarenUrea nitrogen mass conc9.0 mg/dLNormal6.4-19.3TAshtabula County Medical Center Comment on above:Performed By: #### CMP #### [facility] [address] [address] Dianne VilchisUrea nitrogen/Creatinine mass ratio14.1 mg/mgNormalThSelect Medical Specialty Hospital [facility]-FairhillComment on above:Performed By: #### CMP #### [facility] [address] [place], [place] [address] Dianne Vilchis Vital Signs Date TimeVital SignValuePerforming IzumklevbPhwwcsos93-10-8806 08:33-0400Body iitkxb305.3 Jozef Padilla MD Work Phone: [phone]08-14-2025 08:33-0400Body mass index (BMI) [Ratio]22.18 kg/v5NowrmMiracle Padilla MD Work Phone: [phone] [place], [place] [address] CareQaivlmjztt82-10-0171 08:33-0400Body temperature 98.4 [degF]Miracle Padilla MD Work Phone: [phone] CareWqelcwurst71-02-8834 08:33-0400Body atgzfr46.13 kgMiracle Padilla MD Work Phone: [phone] CareJzfmlgvlhj67-84-4938 08:33-0400Diastolic blood omazhrmr05 mm[Hg]Miracle Padilla MD Work Phone: [facility] CareLigfcqkqkt31-96-8190 08:33-0400Heart rate77 /min Miracle Padilla MD Work Phone: [phone] CareGwnuvwjjmy83-88-4443 08:33-5666DqL1% (BldA) [Mass fraction]99 %Miracle Padilla MD Work Phone: [facility] CareGxidecnkpi54-08-9442 08:33-0400Systolic blood utlcdmbv772 mm[Hg]Miracle Padilla MD Work Phone: [facility] CareQmdhjjlfss96-39-5675 12:48-0400Body temperature 97.11 [degF]Mame TOPEET Work Phone: [facility] CareTakoxtzaav68-13-1706 12:48-0400Diastolic blood mm[Hg]Mame Jojo PA Work Phone: [facility]OMer[facility] springfieldPqepzczujr48-22-0168 12:48-0400Heart rate98 /min Mame Jamisontaryn PA Work Phone: [facility]OMercy hospital springfieldImsquwcsqu21-74-4154 12:48-1504YeG9% (BldA) [Mass fraction]99 %Mame Jamisontaryn PA Work Phone: [facility]OMercy hospital springfieldXdugsazokd62-53-8981 12:48-0400Systolic blood ryvzikcn163 mm[Hg]Mame Jamisontaryn PA Work Phone: [facility]OMer[facility] springfieldPxryokzzwd89-81-5708 09:20-0400Body gjifuh209.3 Jozef Padilla MD Work Phone: [facility] CareXhxkvrguic06-09-9313 09:20-0400Body mass index (BMI) [Ratio]22 kg/o1ZgextMiracle Padilla MD Work Phone: [facility] CareKoedrzkije29-56-2171 09:20-0400Body temperature 98.2 [degF]Miracle Padilla MD Work Phone: [facility] CareChjxgbprvy00-66-0188 09:20-0400Body oisewe47.59 kgMiracle Padilla MD Work Phone: [facility] CareEcwgqdnxuj48-14-3441 09:20-0400Diastolic blood dkvujxep37 mm[Hg]Miracle Padilla MD Work Phone: [facility] CareGdqbuvxxzl32-46-6084 09:20-0400Heart rate68 /min Miracle Padilla MD Work Phone: [facility] CareLfrwjvbxdk64-32-8115 09:20-6436AcF3% (BldA) [Mass fraction]99 %Miracle Padilla MD Work Phone: [facility] CareRcqscwtytf83-84-8056 09:20-0400Systolic blood lsjtadaw965 mm[Hg]Miracle Padilla MD Work Phone: [facility] Health CareZjeghcwcde15-13-9875 19:53-0400Body jcohth369.48 cmMD Miracle Padilla Work Phone: [facility]09-26-2024 19:53-0400 Body brwocdxtwuw98 [degF]MD Miracle Padilla Work Phone: [phone]09-26-2024 19:53-0400 Body .1 kgMD Miracle Padilla Work Phone: [phone]09-26-2024 19:53-0400 Diastolic blood kfqlfupv39 mm[Hg]MD Miracle Padilla Work Phone: [phone]09-26-2024 19:53-0400 Heart rate90 /minMD Miracle Padilla Work Phone: [phone])[address]09-26-2024 19:53-0400 Respiratory rate16 /minMD Miracle Padilla Work Phone: [phone]09-26-2024 19:53-0400 SaO2% (BldA) [Mass fraction]98 %MD Miracle Padilla Work Phone: [phone]09-26-2024 19:53-0400 Systolic blood uiuibsyj494 mm[Hg]MD Mircale Padilla Work Phone: [phone])917-[address] [place], [place] 3361302-15-2024 11:20-0500 Body pqjphfaftpl19.52 [degF][facility] 05-27-2023 11:20-0500Diastolic blood zgjybqkr30 mm[Hg][facility]02-15-2024 11:20-0500Heart rate61 /min[facility]02-15-2024 11:20-0500Respiratory rate20 /[facility]02-15-2024 11:20-3327TeO2% (BldA) [Mass fraction]99 %[facility]02-15-2024 11:20-0500Systolic blood dvhhjyiy936 mm[Hg][facility]02-14-2024 16:14-0500Body mass index (BMI) [Ratio]21.86 kg/b8GrobiBella Camara MD Work Phone: [facility] CareUjepauccgp66-17-7130 16:14-0500Body temperature 98.6 [degF]Bella Camara MD Work Phone: [facility] CareQbpgbugimn41-73-3228 16:14-0500Body rowmok86.13 kgBella Camara MD Work Phone: [phone] CareMttavyjraq37-83-8400 16:14-0500Diastolic blood ausglsve96 mm[Hg]Bella Camara MD Work Phone: [phone] [place], [place] [address]Jramnavqvl73-24-2695 16:14-0500Heart rate71 /min Bella Camara MD Work Phone: [phone] CareMylyxmbeor76-11-3612 16:14-1821LuX9% (BldA) [Mass fraction]100 %Bella Camara MD Work Phone: [facility] CareUzjoigrrqo38-63-4390 16:14-0500Systolic blood wddouyip255 mm[Hg]Bella Camara MD Work Phone: [facility] CareCshswulxzl06-29-4657 15:36-0500Body myaexu446.3 [facility] 15:36-0500Body mass index (BMI) [Ratio]21.86 kg/k2JwyhtbdCherokee Medical Center02-12-2024 15:36-0500Body kvrbcqsxmxe84.4 [degF][facility] 05-24-2023 15:36-0500Body aybfwv35.13 kgChe[facility] 05-24-2023 15:36-0500Diastolic blood lteadjze05 mm[Hg][facility]02-12-2024 15:36-0500Heart cths889 /minCherokee Medical Center02-12-2024 15:36-0619EcR0% (BldA) [Mass fraction]99 %Elisabet Giron [facility] CenterWusyczixel42-20-7529 15:36-0500Systolic blood mm[Hg]Elisabet Giron [facility] CenterWnnwmlylox41-69-0397 14:22-0500Body wayhcq066.3 cmTodmikaela Clifton PA Work Phone: [facility] CareKccliqdxzg89-52-4165 14:22-0500Body mass index (BMI) [Ratio]21.71 kg/m2[facility] Work Phone: [facility] CareTjtbhxymhz70-36-7974 14:22-0500Body temperature 97.59 [degF][facility] PA Work Phone: [facility] CareFksaxmqwso36-95-2498 14:22-0500Body .68 kgSt [facility] Work Phone: [facility] CareXuozdbuhlj27-13-1113 15:37-0500Body rqxpyx152.3 Jozef Padilla MD Work Phone: [facility] CareZogeknonti96-57-7942 15:37-0500Body mass index (BMI) [Ratio]21.56 kg/e1OqiyxMiracle Padilla MD Work Phone: [facility] CareFwsiubgcko36-48-8136 15:37-0500Body ubeywx03.22 kgMiracle Padilla MD Work Phone: [facility] CareOppbebkyhu33-23-8804 15:37-0500Diastolic blood yybhmlwr41 mm[Hg]Miracle Padilla MD Work Phone: [facility] CareQvfrkgjxxy99-47-5501 15:37-0500Heart rate71 /min Miracle Padilla MD Work Phone: [facility] CareVjqelmdyvr01-12-8051 15:37-5561PxQ0% (BldA) [Mass fraction]98 %Miracle Padilla MD Work Phone: [facility] CareOsaxzlomrm08-90-4733 15:37-0500Systolic blood mjjmyegj300 mm[Hg]Miracle Padilla MD Work Phone: [phone])[address] [place], [place] 2513601-31-2024 11:26-0500Body kpisqh138.3 Jozef Padilla MD Work Phone: [phone] [place], [place] 5421301-31-2024 11:26-0500Body mass index (BMI) [Ratio]21.71 kg/o1TvehxMiracle Padilla MD Work Phone: 1(643)[address] [place], [place] 5421301-31-2024 11:26-0500Body temperature 98.01 [degF]Miracle Padilla MD Work Phone: [phone])[address] [place], [place] 5421301-31-2024 11:26-0500Body qfoquq79.68 kgMiracle Padilla MD Work Phone: [phone])[address] [place], [place] 5421301-31-2024 11:26-0500Diastolic blood ecsbamze61 mm[Hg]Miracle Padilla MD Work Phone: [phone])[address] [place], [place] 5421301-31-2024 11:26-0500Heart rate65 /min Miracle Padilla MD Work Phone: [phone])[address] [place], [place] 5421301-31-2024 11:26-9595ScB4% (BldA) [Mass fraction]99 %Miracle Padilla MD Work Phone: [phone])[address] [place], [place] 5421301-31-2024 11:26-0500Systolic blood ezbohzbi372 mm[Hg]Miracle Padilla MD Work Phone: [phone] [place], [place] 5421308-01-2023 19:03-0400Diastolic blood ifwheyzl60 mm[Hg][facility]08-01-2023 19:03-0400Heart rate53 /min[facility]08-01-2023 19:03-0400Mean blood mm[Hg][facility]08-01-2023 19:03-0400Respiratory rate16 /minAstrOhio [facility]08-01-2023 19:03-6624EoO3% (BldA) [Mass fraction]99 %[facility]08-01-2023 19:03-0400Systolic blood pressure 120 mm[Hg][facility]08-01-2023 18:15-0400 Diastolic blood jzhjyizc69 mm[Hg][facility] 11-10-2022 18:15-0400Heart rate52 /minPar[facility]08-01-2023 18:15-0400Mean blood otcycouj46 mm[Hg][facility]08-01-2023 18:15-0400Respiratory rate16 /minD[facility]08-01-2023 18:15-2044XtW7% (BldA) [Mass fraction] 100 %[facility]08-01-2023 18:15-0400Systolic blood seproziz971 mm[Hg][facility]08-01-2023 17:16-0400Diastolic blood mzxruafr60 mm[Hg][facility]08-01-2023 17:16-0400Heart rate57 /minPar[facility]08-01-2023 17:16-0400Mean blood ipgdpexl10 mm[Hg][facility]08-01-2023 17:16-0400Respiratory rate16 /minD[facility]08-01-2023 17:16-2939WaE9% (BldA) [Mass fraction] 100 %[facility]08-01-2023 17:16-0400Systolic blood aqfswtlh406 mm[Hg][facility]08-01-2023 17:10-0400Hourly RoundingPar[facility] Hospital08-01-2023 17:10-0400Promise to ReturnParma Community General Hospital08-01-2023 16:06-0400Body bwsdrliegns88.88 [degF]Astrit [facility]08-01-2023 16:06-0400Heart rate66 /minPar[facility]08-01-2023 16:06-0400Respiratory rate16 /minPar[facility]01-02-2023 00:12-0500Diastolic blood ovhkuqrd52 mm[Hg]DO Phillip Petznick Work Phone: [phone] [place], [place] 1257101-02-2023 00:12-0500 Heart rate75 /minDO Phillip Petznick Work Phone: [address] [place], [place] 1257101-02-2023 00:12-0500 Respiratory rate18 /minDO Phillip Petznick Work Phone: [phone] [place], [place] 1257101-02-2023 00:12-0500 SaO2% (BldA) [Mass fraction]98 %DO Phillip Petznick Work Phone: 1(383)[address] [place], [place] 1257101-02-2023 00:12-0500 Systolic blood kepryymh284 mm[Hg]DO Phillip Petznick Work Phone: 1(900)[address] [place], [place] 1257101-01-2023 22:49-0500 Body tatglv926.26 cmDO Phillip Petznick Work Phone: 1(492)[address] [place], [place] 1257101-01-2023 22:49-0500 Body .4 [degF]DO Phillip Petznick Work Phone: 1(588)[address] [place], [place] 1257101-01-2023 22:49-0500 Body gbtuac24 kgDO Phillip Petznick Work Phone: [phone])[address] [place], [place] 1257112-27-2022 23:14-0500 Body efricm778.26 cmDO Phillip Petznick Work Phone: [phone] [place], [place] 1257112-27-2022 23:14-0500 Body tkblxvjwuvv27.7 [degF]DO Phillip Petznick Work Phone: [phone])[address] [place], [place] 1257112-27-2022 23:14-0500 Body tzebrw42 kgDO Phillip Petznick Work Phone: 1(794)[address] [place], [place] 1257112-27-2022 23:14-0500 Diastolic blood chgabxqe12 mm[Hg]DO Phillip Tripp Work Phone: 1(013)[address] [place], [place] 1257112-27-2022 23:14-0500 Heart jtpo346 /SamanthaO Phillip Tripp Work Phone: 1(514)[address] [place], [place] 1257112-27-2022 23:14-0500 Respiratory rate16 /minDO Phillip Tripp Work Phone: [phone])[address] [place], [place] 1257112-27-2022 23:14-0500 SaO2% (BldA) [Mass fraction]99 %DO Phillip Tripp Work Phone: 1(545)[address] [place], [place] 1257112-27-2022 23:14-0500 Systolic blood awzauabe726 mm[Hg]DO Phillip Tripp Work Phone: [phone] [place] [address] Encounters Encounter DateEncounter TypeCare ProviderFacilityStart: 11-23-2024 End: 74-18-3310Sxvpxk Magda Padilla MD Work Phone: [facility] MedicineStart: 11-23-2024 End: 03-70-8522Rsssqmpaula Padilla MD Work Phone: noBridge[facility] MedicineStart: 11-23-2024 End: 56-39-6167Cyvzzi outpatient visit 15 minutesMiracle Padilla MD Work Phone: [facility] MedicineComment on above:Left hip pain (Primary Dx); Contusion of right knee, initial encounter; Tingling sensationStart: 11-23-2024 End: 82-87-8765vwdckodqrzCGZMX D CROSBYNot AvailableStart: 08-28-2024 End: 65-80-4639rzrvdbqqknPLIMQ D CROSBYNot AvailableStart: 08-28-2024 End: 53-84-0083Cmzekq follow up visit related to original Kelly Padilla MD Work Phone: noms NE FMComment on above:Vertigo (Primary Dx)Start: 08-19-2024 End: 76-41-4699Aroaww outpatient visit 15 minutesMame TOPETE Work Phone: noms SWS UCComment on above:Gastroenteritis (Primary Dx); Pharyngitis, unspecified etiology; PND (post-nasal drip)Start: 08-19-2024 End: 61-49-6751xzdnwcutvpPIHXW M HEMMERNot AvailableStart: 08-16-2024 End: 24-56-8812Ezuqsxn encounter procedureBella Camara MD Work Phone: noms NE FMComment on above:Encounter for surveillance of injectable contraceptiveStart: 08-16-2024 End: 87-66-1818tpugslganzDUPCE M RUGGLESNot AvailableStart: 08-10-2024 End: 17-00-5697Qxbchl Magda Padilla MD Work Phone: [facility] NE FMStart: 08-10-2024 End: 21-70-7443Ugannppaula Padilla MD Work Phone: n[facility] NE FMStart: 08-10-2024 End: 54-08-6867Gswzitk encounter procedureMiracle Padilla MD Work Phone: noms HealthcareStart: 08-10-2024 End: 40-82-2483Carajvqv preventive med est patient 18-39 yrsMiracle Padilla MD Work Phone: noms NE FMComment on above:Annual physical exam (Primary Dx); Encounter for surveillance of injectable contraceptive; Anxiety; Atypical migraine (CMS/HCC); Difficulty sleeping; Trochanteric bursitis of right hip; S/P lateral meniscus repair of right kneeStart: 08-10-2024 End: 94-44-9834ekppakqnxaDPKQE D CROSBYNot AvailableStart: 07-03-2024 End: 74-53-8433yjjafwshknNfylw T [facility] Work Phone: Start: 07-03-2024 End: 53-00-9571Wjxcgafl ReferredDaconrad Murillo MD Work Phone: [facility]-LAB Path Spec [facility] HospStart: 05-24-2024 End: 52-13-9865Qdfwbbuft Result EncounterMarilyn Smith STAKE SETTER Work Phone: noms External Department UnsolicitedStart: 05-24-2024 End: 79-53-1534Qhwsoqrew Result EncounterMarilyn Smith STAKE SETTER Work Phone: noms External Department UnsolicitedStart: 01-07-2024 End: 28-77-2547Rllpbkcaf encounterBella Camara MD Work Phone: NOMS NE FMComment on above:ER Follow-upStart: 01-06-2024 End: 31-20-1906Tjghdtcxw department patient visitMD Miracle Padilla Work Phone: [facility]-Emergency [facility] Work Phone: Start: 01-05-2024 End: 55-19-1828Ctggdgwga encounterPeDominguez MD Work Phone: [facility] NE FMComment on above:ReferralStart: 12-31-2023 End: 77-00-4813Vlylxo flowsheetMiracle Padilla MD Work Phone: [facility] NE FMStart: 12-31-2023 End: 25-10-6904Coyhog flowsheetMiracle Padilla MD Work Phone: [facility] NE FMStart: 12-31-2023 End: 11-53-7661tbpbokrinrDLPST D CROSBYNot AvailableStart: 12-31-2023 End: 39-60-3635Nttj/qhp telephone evaluation 03-01 minMiracle Padilla MD Work Phone: [facility] NE FMComment on above:Difficulty sleeping; AnxietyStart: 10-07-2023 End: 00-55-4707Uhvutzxti Result EncounterDajazzmine Crane STAKE SETTER Work Phone: NOII External Department UnsolicitedStart: 10-07-2023 End: 65-88-8103Rouwkdanx Result EncounterAshlie Crane STAKE SETTER Work Phone: NOWD External Department UnsolicitedStart: 10-07-2023 End: 13-38-7615rtnrtuxcarYRRWNGET J HARTFacility:FTMCStart: 10-07-2023 End: 24-94-8453Naredqo encounter procedureASHLIE CRANE [facility] Start: 05-27-2023 End: 46-50-8756Vgwukwetk department patient visitAstrit H [facility] Start: 05-26-2023 End: 46-33-2984Zcliidu encounter procedureBella Camara MD Work Phone: noms NE FMComment on above:AnxietyStart: 05-25-2023 Bamboo Cliff Arnett PT Work Phone: noms [place] PTStart: 29-65-6923Ocwrwj Cliff Arnett PT Work Phone: noms [place] PTStart: 05-24-2023 End: 81-76-5315Mzglmvp encounter procedureElisabet Giron NPNOMS NE FM Comment on above:Nasal injury, initial encounter (Primary Dx); Generalized headache; BMI 21.0-21.9, adultStart: 26-95-1266Imqcpo flowsTimi Giron STAKE SETTER NOMS NE FMStart: 84-93-8968Tjvbxb flowsTimi Giron NPNOMS NE FM Start: 05-19-2023 End: 40-23-4636Kwbdvgb encounter procedureZack Conn PA Work Phone: noms NB ORTHOComment on above:It band syndrome, right (Primary Dx); Right hip pain; Trochanteric bursitis of right hipStart: 05-17-2023 End: 33-57-4636Fxruld outpatient visit 15 minutesPeDominguez MD Work Phone: noms NE FMComment on above:Trochanteric bursitis of right hip (Primary Dx)Start: 05-12-2023 End: 68-31-1663Wolnof outpatient visit 15 minutesPeDominguez MD Work Phone: noms NE FMComment on above:Trochanteric bursitis of right hip (Primary Dx); LevoscoliosisStart: 11-10-2022 End: 25-85-7719Pdkkbacqq department patient visitAstrit H [facility] Start: 04-12-2022 End: 27-40-5220Xzxdkvdet department patient visitDO Phillip Tripp Work Phone: [facility] Work Phone: Start: 04-07-2022 End: 12-45-3067Tfqghcbif department patient visitDO Phillip Tripp Work Phone: [facility] Work Phone: Start: 09-10-2018 End: 67-74-1152Mkvzszb encounter procedureDOCTOR MISCFacility:H1 Procedures DateProcedureProcedure DetailPerforming ClinicianStart: 22-05-3717Btbqq streptococcus group a amplified probe tqAgustin Hernandez DO Work Phone: Start: 10-94-8293Vkwyt test visual color cmprsn Liberty Camara MD Work Phone: start: 80-30-3206Neude test visual color cmprsn clarksPlaure Padilla MD Work Phone: start: 65-10-3439ARLGXNWUJ B SURF AB Jose Daniel Smith STAKE SETTER Work Phone: Start: 31-01-5650SYIFVFZ/MUMPS/[facility] Marilyn Smith STAKE SETTER Work Phone: Start: 92-99-1080BWUOSRSHW-ZOSTER V AB, IGGMarilyn Smith STAKE SETTER Work Phone: Start: 09-09-4708HN CHEST 2 VIEWSDanielle Anca Crane STAKE SETTER Work Phone: start: 05-19-2023 End: 98-06-8741Gauxz spine lumbosacral minimum 4 viewsTodd D Fabien PA Work Phone: Start: 83-55-4479VDZL-CoV-2, Influenza & RSV (PCR)DO Phillip Tripp Work Phone: History of operative procedure on kneeS/P lateral meniscus repair of right kneePeter Mikaela Padilla MD Work Phone: Plan of Treatment DateCare ActivityDetailAuthorStart: 70-27-7489Ktkqarqtp vaccinationUniversity of [facility] Health CareStart: 11-23-2024 End: 67-84-7253Klnsovj encounter /14/2025 8:30 AM EDT Office Visit SOHAN [place] [facility] [address] [place] [phone] Miracle Padilla MD [address] [place] [address] [facility] SystemComment on above:Arrived Start: 11-10-2024 End: 04-33-2658Gmmnsej encounter uojkaqvue86/01/2025 8:15 AM EDT Office Visit SOHAN JARVIS [address] [place] [phone] Miracle Padilla MD [address] [place] [address] SOHAN JARVIS FMStart: 08-10-2024 End: 14-43-0403Yclwfxo encounter qzknnninx92/01/2025 8:45 AM EDT Office Visit SOHAN JARVIS [address] [place] [phone] Miracle Padilla MD [address] [place] [address] ArrivedNOMS NE FMComment on above:ArrivedStart: 86-46-6773Axkcwqse identified in Urine by CultureUrine Access Hospital Daytontart: 07-03-2024 Urine cultureUniversity Hospitals Beachwood Medical Centertart: 02-15-2024 End: 81-28-6323Wznasms encounter drjbvhxpo64/05/2024 8:00 AM EST Office Visit [facility] [place] [address] [place] [address] Miracle Padilla MD [address] [place] [address] NOMS NE FMStart: 01-18-2024 End: 71-71-7272Beymrrc encounter qrctmvgso04/08/2024 1:30 PM EDT Office Visit [facility] [address] [place] [address] Miracle Padilla MD [address] [place] [address] NOMS NE FMStart: 21-87-7489Phdaxiopp vaccinationInfluenza Vaccine (#1)[facility] Start: 06-11-2023 End: 26-14-7310hmvhcphgvq72/01/2024 3:30 PM EST Treatment [facility] [place] [facility] [address] [facility] [address] [place] [phone] Shelly Arnett, PT [address] [facility] [place] [address] [facility]OMS [place] PTStart: 06-04-2023 End: 55-53-7302qpolcrdjxv43/23/2024 4:15 PM EST Treatment [facility] [place] [address] [address] [place] [address] Shelly Arnett, PT [address] [facility] [place] [address] NOMS [place] PTStart: 05-25-2023 End: 34-89-2485adazwlslubDROE [place] PTComment on above:It band syndrome, right; Trochanteric bursitis of right hipStart: 05-24-2023 End: 91-00-3835Zvvkgsy encounter /12/2024 3:30 PM EST Office Visit N[facility] [place] [address] [place] [address] Elisabet Giron NP ArrivedNOMS NE FMComment on above:ArrivedStart: 20-61-9371Wdbva chest X-rayXR chest 1V [facility] Hospitaltart: 16-20-8380QX Chest Single viewLancaster Municipal HospitalPatient Education [facility] Work Phone: Patient referralMary [facility]an Hospital [facility]tr Work Phone: Immunizations Immunization DateImmunizationNotesCare BveycsrxMcpptnnt66-13-8408yvzkhrupg, injectable, quadrivalent, contains preservativeTodd Clifton PA Work Phone: NOMercy hospital springfieldQebqfnnikx86-08-6398azpqvghwa virus vaccine, unspecified formulationPeDo MD Work Phone: [facility] CareMqcuybdpgl38-61-4000arzzngnoq, injectable, quadrivalent, preservative freeTodd Clifton PA Work Phone: NOMercy hospital springfieldNaxaiesubq19-32-9094tromshtcp, injectable, quadrivalent, preservative freeTodd Clifton PA Work Phone: NOMercy hospital springfieldPwavyfdtds95-55-5877xmazrbp toxoid, reduced diphtheria toxoid, and acellular pertussis vaccine, adsorbedTodd Clifton PA Work Phone: NOMercy hospital springfieldTgvcnfsihu72-32-7368dgdoacn toxoid, reduced diphtheria toxoid, and acellular pertussis vaccine, [facility]02-25-2019influenza, injectable, quadrivalent, preservative [facility]10-13-2011influenza, seasonal, injectable, preservative freeTodd Clifton PA Work Phone: [phone] [place], [place] [address]Ppdtgxviem21-75-2117uqvorxahymmnk polysaccharide (groups A, C, Y and W-135) diphtheria toxoid conjugate vaccine (MCV4P)[facility] Work Phone: [phone] [place], [place] [address]Cwzhyjxpdl62-70-6267wtzksar toxoid, reduced diphtheria toxoid, and acellular pertussis vaccine, adsorbedSt [facility] Medical Center Work Phone: [phone] [place], [place] [address]Vnijxfunsa64-38-9934jnily hfofebscy-N4L0-83, preservative-free, injectableSt [facility] Medical Center Work Phone: [phone] [place], [place] [address]Enxiysevrh29-97-1036kjfchqcrc virus vaccine, live, attenuated, for intranasal useSt [facility] Medical Center Work Phone: [phone] [place], [place] [address]Osedpfbfzg66-84-1927sthhdruol, seasonal, injectableSt [facility] Medical Center Work Phone: [phone] [place], [place] [address]Edaushtdsf86-02-9252uztwczgxt virus vaccine, whole virusSt Luke Medical Center Work Phone: [phone] [place], [place] [address]Cxpbdxogrr90-14-3511ydegtrzyop, tetanus toxoids and acellular pertussis vaccineSt Luke Medical Center Work Phone: [phone] [place], [place] [address]Jizatkohwj85-59-3798mgaifbg, mumps and rubella virus vaccineSt [facility] Medical Center Work Phone: [phone] [place], [place] [address]Ucufacaegl15-35-0332jmvyqnmwqo vaccine, inactivatedToAshland Community Hospital Work Phone: [phone] [place], [place] [address]Lujrihkrdm66-89-9085jxnqvukso, seasonal, injectableSt [facility] Medical Center Work Phone: [phone] [place], [place] [address]Zkwelcmank72-02-4542mbbcupeveuhm conjugate vaccine, 7 valentSt Luke Medical Center Work Phone: [phone] [place], [place] [address]Wlksvrbeih10-14-0378tdretewod, seasonal, injectableUpper [facility] Center PA Work Phone: [phone] [place], [place] [address]Tmkfqbwhdy93-98-9829vwztljgeh virus vaccine, whole virusSt Luke Medical Center Work Phone: [phone] [place], [place] [address]Sstmtohtgo52-58-9381gfgqftrjhp, tetanus toxoids and acellular pertussis vaccine, unspecified formulationUpper Valley Medical Center PA Work Phone: [phone] [place], [place] [address]Llcsjeedfq24-16-1229mhezcbgxynk influenzae type b vaccine, conjugate unspecified formulationToEssentia Health PA Work Phone: [phone] HospitalNOMercy hospital springfieldUnledfxrja17-60-9855iwfgepf, mumps and rubella virus vaccineToEssentia Health PA Work Phone: [phone] CenterNOMercy hospital springfieldTsyglmdeyy58-35-4017xkuakbekrh vaccine, inactivatedToEssentia Health PA Work Phone: NOMercy hospital springfieldNtzfuzutdi44-33-8032tznboylmvz, tetanus toxoids and acellular pertussis vaccine, unspecified formulationToEssentia Health PA Work Phone: [phone]-[facility] HospitalNOMercy hospital springfieldSwpidnnxto36-12-5700pjljprwagle influenzae type b vaccine, conjugate unspecified formulationToEssentia Health PA Work Phone: [phone] HospitalNOMercy hospital springfieldYytjidejwg99-74-8097drpopzier B vaccine, pediatric or pediatric/adolescent dosageToEssentia Health PA Work Phone: NOMercy hospital springfieldNclffwwzeb99-39-7828jqfwsufbf poliovirus vaccine, live, oralToEssentia Health PA Work Phone: NOMercy hospital springfieldUtlppvyqiw40-41-8352buplcwlhcd, tetanus toxoids and acellular pertussis vaccine, unspecified formulationToEssentia Health PA Work Phone: NOMercy hospital springfieldIqmisthezq90-07-2884bafuqqncpeg influenzae type b vaccine, conjugate unspecified formulationToEssentia Health PA Work Phone: [phone] HospitalNOMercy hospital springfieldMlpvflevch89-89-5998pwchcestya vaccine, inactivatedToEssentia Health PA Work Phone: NOMercy hospital springfieldYczwpqyzmn90-63-1891wiosillmuj, tetanus toxoids and acellular pertussis vaccine, unspecified formulationToEssentia Health PA Work Phone: [phone]-[facility] HospitalNOMercy hospital springfieldEqwakgmywp11-57-6179ksmqyzrtiid influenzae type b vaccine, conjugate unspecified formulationToEssentia Health PA Work Phone: NOMercy hospital springfieldQjzowsaumv91-56-2939fuyvymzoe B vaccine, pediatric or pediatric/adolescent dosageToEssentia Health PA Work Phone: NOMercy hospital springfieldMmcnnkksrh21-80-9263slfxyutypb vaccine, inactivatedToEssentia Health PA Work Phone: NOMercy hospital springfieldRcgupujzkv22-16-2987wkvjjwgzd B vaccine, pediatric or pediatric/adolescent dosageToEssentia Health PA Work Phone: NOCY HealthcareNEGATED: Highlighted row has not occurred!46-00-6694iqxuyjc toxoid, reduced diphtheria toxoid, and acellular pertussis vaccine, adsorbedDO Phillip Manirodrigo Work Phone: [facility] Payers DatePayer CategoryPayerPolicy [id number] [id number] [employer] PLUS [id number] 2022-Present [address] [place] [id number] 2.0.1.710585.3.57[id number] 2.0.1.505315.3.579.[id number] 2.0.1.072838.3.57[id number] 2.0.1.146089.3.57[id number] 2.16.840.1.466600.3.579.2.3[id number] 2.16.840.1.735737.3.579.2.73[id number] 2.16.840.1.290955.3.579.2.742801-20-8527Pbwwphl9222538 2.16.840.1.003155.3.579.2.789970-50-2562Hcbncbs0470161 2.16.840.1.476564.3.57[id number] 2.16.840.1.110018.3.579.2.375338-35-1521Rflcmlf99548586279193-42-1355Devrjaa [id number] Health [id number] 949mi5s4-45r4-89o6-6yuc-[id number] 2.16.840.1.019840.3.579.2.143Qxbpxxz19371987 2.16.840.1.499805.3.579.2.531 Worker's CompensationIndustrial Self Ins [id number] Social History DateTypeDetailFacilityTobacco smoking status NHISUnknown if ever smokedMary [facility] CtrStart: 74-97-2805Jpq Assigned At [facility] CenterStart: 04-12-2014 End: 15-27-3529Clnbkpw smoking status NHISSmoker (finding)[facility] CenterStart: 13-98-5128Dckaxdu smoking statusHeavy tobacco smoker (finding)[facility] CenterStart: 10-14-2022 End: 70-88-4115Ojx Assigned At [facility] CenterStart: 04-12-2014 End: 70-42-4534Cwyfotm smoking status NHISSmokes tobacco dailyNOMS Healthcare Start: 46-27-1284Iyzvjtz of tobacco useCigarette SmokerNOIA HealthcareStart: 10-14-2022 End: 15-56-8159Igebfwxijj smoked current (pack per day) - Reported0.3NOMS HealthcareStart: 05-19-2023 End: 64-01-7563Tsxzcla use and exposureSmokeless tobacco non-userNOMS Healthcare Start: 05-19-2023 End: 49-72-5041Weajocr intakeEx-drinker (finding)[facility] HealthcareWithin the last year, have you been afraid of your partner or ex-partner?NoNOMS HealthcareStart: 47-35-4675Esu often do you attend mormonism or anglican services?Patient refused [facility] HealthcareAre you now , , , , never or living with a partner?Living with partnerNOMS HealthcareHow often to you have a drink containing alcohol?2-4 times a monthNOMS HealthcareHow many standard drinks containing alcohol do you have on a typical day?5 or 6NOMS HealthcareHow often do you have 6 or more drinks on 1 occasion?MonthlyNOMS HealthcareDo you feel stress - tense, restless, nervous, or anxious, or unable to sleep at night because yourmind is troubled all the time - these days [OSQ]To some extentNOMS Healthcare(I/We) worried whether (my/our) food would run out before (I/we) got money to buy more.Never trueNOMS HealthcareStart: 10-16-8644Crofqtw Comment1-2 drinks less than monthly in the past year, Caffeine intake: 3-4 cups per day occasional, soda/popNOMS HealthcareStart: 13-50-2696Sud Assigned At BirthNot on fileNOIA HealthcareStart: 11-16-2023 End: 32-52-3754Wtvzbur smoking status NHISEx-smoker (finding)[facility] Centertart: 50-85-0359EteAakxfn (finding)[facility] Goals DatePatient GoalDesired Activity/State Functional Status KljzKdawpsgjnnHfeokoItfjetjs97-79-5210Gyzsvbd Health Questionnaire 2 item (PHQ- 2) [Reported][facility] CareTmbuldkldv17-06-2595Zkjpdpfyya StatusN/[facility]08-01-2023Functional StatusN/[facility] Clinical Notes 09-05-2021 to 11-23-2024 Note Date & RcseAhzkUehqoerb86-67-9439 History of Present illness Narrative* Miracle Padilla MD - 11/23/2024 8:30 AM EDT Maury Collazo is a 24 y.o. female [...] to manage the swelling and pain with ice,the symptoms have not improved. She experiences a [...] the ER, which showed no fracture, but shecontinues to experience pain. The pain is so severe that she is unable to lift objects with her thumb. She has been managing the pain with ibuprofen. Her migraines are well-controlled with her current medication regimen. She reports no respiratory issues such as coughing or breathing difficulties. She has not needed touse her inhaler recently. 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 documented in this encounterUniversity of Missouri Health CareRkunngoult33-36-5612 History of Present illness Narrative* EFREM Alcantar - 08/19/2024 12:45 PM EDT Images from the original note were not included. [address] , [address] [facility], [address] P: [phone] F: [phone] HPI Historian of HPI: patient Maury Collazo [...] of pineal cyst 2014 Knee sprain Migraine Ovarian cyst Personal history [...] Administer 1-2 sprays into each nostril Daily Shakegently. Before first use, prime pump. After use, clean tip and replace cap. Start above as prescribed to help with the drainage. Mame HAYES, KELLE documented in this encounterUniversity of Missouri Health CareMssfybkass30-88-9163 History of Present illness Narrative* Maame Borrego MA - 08/16/2024 1:45 PM EDT Rx for Depo sent to pharmacy per Dr. Camara. documented in this encounterUniversity of Missouri Health CareDwbabbgtbk01-64-7301 History of Present illness Narrative* Miracle Padilla MD - 08/10/2024 8:45 AM EDT Images from the original note were not [...] has worsened following a long drive from [place]. She has discontinued the use of Zanaflex and loratadine. Trazodone is used sparingly as needed, and a refill is requested. No inhalers are currently used, and there has been no recent need for them. Overall health is reported as good, with no recent illnesses. Healthy eating habits have led to weight gain. No episodes offainting or other health concerns are reported. Smoking [...] Prescription for Wellbutrin will be sent to [facility]. 2. Migraine. - Experiences migraines infrequently but still requires preventive medication. - Physical exam and history indicate the need for continued migraine prophylaxis. - Discussed the benefits of resuming topiramate 25 mg at bedtime. - Prescription for topiramate will be sent to [facility]. 3. Hip pain. - Reports hip pain, especially after a long drive from [place]. - Physical exam findings support the need for anti-inflammatory medication. - Discussed the continued use of etodolac for inflammation management. - Prescription for etodolac will be sent to [facility]. 4. Anxiety. - Uses BuSpar as needed for anxiety management. - History and patient report indicate effective control of anxiety symptoms with current medication. - Discussed the continued need for BuSpar as needed. - Prescription for BuSpar will be sent to [facility]. Assessment/Plan There are no preventive care reminders to display for this patient. documented in this encounterUniversity of Missouri Health CareRxamwhdmlg79-77-3575 Telephone encounter Note* Telephone Encounter - Gege Eden - 01/07/2024 11:37 AM EDT Lvmtcb please complete ayah [facility] CareLvnguuenbc48-61-0237 Miscellaneous Notes* Telephone Encounter - Gege Eden - 01/07/2024 11:37 AM EDT Lvmtcb please complete ayah * Telephone Encounter - Gianna Holman - 01/07/2024 10:19 AM EDT Per fax inbox pt was seen [facility] [place] 01/05 low back pain documented in this encounterUniversity of Missouri Health CareHnwokgwaob50-95-2829 Telephone encounter Note* Telephone Encounter - Gianna Holman - 01/07/2024 10:19 AM EDT Per fax inbox pt was seen [facility] [place] [facility] 01/05 low back pain [facility] CareAnucwglfsu30-18-3291 Telephone encounter Note* Telephone Encounter - Gege Eden - 01/05/2024 4:16 PM EDT [place] [facility] [place] [facility] CareVrhjaktydm27-55-2080 Miscellaneous Notes* Telephone Encounter - Gege Eden - 01/05/2024 4:16 PM EDT Called ft instead * Telephone Encounter - Bella Camara MD - 01/05/2024 2:37 PM EDT For what symptoms or pain? * Telephone Encounter - Gege Eden - 01/05/2024 2:33 PM EDT Pt calls and asks for a referral to pain management, please advise thank you documented in this encounterUniversity of Missouri Health CareSaeisnnrbt62-82-5776 Telephone encounter Note* Telephone Encounter - Bella Camara MD - 01/05/2024 2:37 PM EDT For what symptoms or pain? [facility] CareDxfahdepap87-76-1762 Telephone encounter Note* Telephone Encounter - Gege Eden - 01/05/2024 2:33 PM EDT Pt calls and asks for a referral to pain management, please advise thank you [facility] CareFyjvbcmbxk37-07-2474 History of Present illness Narrative* Miracle Padilla MD - 12/31/2023 1:00 PM EDT Images from the original note were not [...] Influenza Vaccine (1) 12/12/2023 documented in this [facility]06-27-2024 Miscellaneous Notes* Result Encounter Note - Ashlie Crane NP - 10/07/2023 7:48 PM EDT Lungs are noted to be clear. Pt is noted to have dextroscoliosis is her thoracic spine. documented in this [facility]06-27-2024 Progress note* Result Encounter Note - Ashlie Crane NP - 10/07/2023 7:48 PM EDT Lungs are noted to be clear. Pt is noted to have dextroscoliosis is her thoracic spine. [facility] [employer] Work Phone: 1(751) 403-705402-15-2024 Hospital Discharge instructions Patient Education 05/27/2023 13:04:44 [...] sitting or lying down. General instructions Take xxcy-tuw-vpjhjrp and prescription medicines only as told by your health care provider. Do not use any products that contain nicotine or tobacco, such as cigarettes, e- cigarettes, and chewing tobacco. These can delay healing. [...] provider. Document Revised: 07/06/2022 Document Reviewed: 02/16/2020 [employer] Patient Education 2022 [employer]. Follow Up Care 05/27/2023 11:17:41 With:Russell Chavez Address: [address] [place] [address] [place] [address] Business (1) When:05/30/2023 12:39:45 [facility]02-15-2024 Evaluation + Plan noteExtracted from: Title:ED NoteAuthor:Jazzy NINA, JansenDate:05/27/23 Knee sprain (S83.90XA: Sprai n of unspecified site of unspecified knee, initial encounter) Orders: Knee Brace XR Knee Complete 4+ Views Right [facility]02-14-2024 History of Present illness Narrative* Bella [...] necessary. documented in this encounterUniversity of Missouri Health CareLupmzhgedw57-79-4904 History of Present illness Narrative* Elisabet Giron, STAKE SETTER - 05/24/2023 3:30 PM EST Maury Collazo [...] occurred. documented in this encounterUniversity of Missouri Health CareBozyjngplf56-82-6691 History of Present illness Narrative* EFREM Mccabe [...] positive Psychogenic nonepileptic seizure (CMS/HCC) Ruptured eardrum 2005 Scoliosis Stress fracture Tear [...] ultrasound guidance. EFREM Mccabe documented in this [facility]02-07-2024 Instructions* Patient Instructions* EFREM Mccabe - [...] cortisone under ultrasound guidance. documented in this [facility]02-05-2024 History of Present illness Narrative* Maame [...] made. documented in this encounterUniversity of Missouri Health CareOzralysztp38-62-2495 History of Present illness Narrative* Maame Whitten [...] made. documented in this encounterUniversity of Missouri Health CareMafppgzika58-68-7590 Hospital Discharge instructions Patient Education 11/10/2022 19:05:26 [...] to any changes in your symptoms. Take kmpw-dlc-qwswqte and prescription medicines only as told by [...] provider. Document Revised: 11/15/2021 Document Reviewed: 11/15/2021 [employer] Patient Education 2022 [employer]. 11/10/2022 19:05:26 Abdominal Pain, Adult Abdominal Pain, [...] Follow these instructions at home: Medicines Take jtlv-rfp-hahszhd and prescription medicines only as told by [...] Watch your condition for any changes. Take auxy-ypk-dvekkmh and prescription medicines only as told by [...] provider. Document Revised: 05/17/2020 Document Reviewed: 08/07/2019 [employer] Patient Education 2022 [employer]. Follow Up Care 11/10/2022 15:59:56 With:Bella Camara Address: [address] [place] [address]- Business (1) When:11/13/2022 18:55:01 Comments:Retrurn to the emergency room if your shortness of breath recurs, abdominal pain recurs or any new symptoms. [facility]08-01-2023 Evaluation + Plan noteExtracted from: Title:ED NoteAuthor:Brielle VarmaMichael HDate:11/10/22 1. Abdominal pain (R10.9: Un specified abdominal [...] Stop date 11/10/22 17:47:00 EDT, STAT, Start date11/10/22 17:47:00 EDT, 11/10/22 17:47:00 EDT ketorolac, 30 [...] With Cult Reflex XR Chest Single View [facility]05-27-2022 NoteHISTORY: Mid to lower back pain [...] and signed by Jonnie Jacob on 09/09/2021 1057[facility] SpecialistEvaluation noteNo assessment information availablePromedica Bay Park Hospital Work Phone: Evaluation note* Diagnosis It band syndrome, right- Primary Right hip pain Pain in joint, pelvic region and thigh Trochanteric bursitis of right hip documented in this encounter [facility]* Diagnosis Trochanteric bursitis of right hip- Primary documented in this encounter [facility]* Diagnosis Nasal injury, initial encounter- Primary Generalized headache BMI 21.0-21.9, adult documented in this encounter [facility] HealthcareEvaluation note* Diagnosis Trochanteric bursitis of right hip- Primary Levoscoliosis documented in this encounter [facility]Evaluation note* Diagnosis Anxiety Anxiety state, unspecified [...] drip) Postnasal drip documented in [facility] encounter [facility] HealthcareEvaluation note* Diagnosis Annual physical exam- Primary [...] of right knee documented in this encounter [facility]* Diagnosis Vertigo- Primary Dizziness and giddiness documented in this encounter [facility] HealthcareEvaluation note* Diagnosis Left hip pain- Primary Pain in joint, pelvic region and thigh Contusion of right knee, initial encounter Tingling sensation Disturbance of skin sensation documented in this encounter [facility] HealthcareHospital course Narrative No data available for this section [facility] Discharge instructions Additional Instructions If your symptoms return/worsen or you develop any further concerns or symptoms please see your doctor or return to the emergency department immediately.[facility] Work Phone: Hospital Discharge instructions Additional Instructions Increase your intake of fluids. Take Zofran as prescribed for any nausea. Take Tamiflu to help decrease the duration of symptoms. Take Motrin Tylenol as needed for fever and chest pain. Follow-up with PCP for any persistent symptoms in 5 to 7 days.[facility] Work Phone: Hospital Discharge instructions No data available for this section [facility] HospitalProgress note No data available for this section [facility] Summary Purpose Family History Relationship Condition Age at Onset Recorded Date/T fadi grandparent Unknown grandparentDiabetes mellitusUnknown Advance Directives Advance Directive Response Recorded Date/ [...] 03, 2024 3:4 9am Reason for Referral SpecialtyDiagnoses / ProceduresReferred By ContactReferred To ContactPhysical Therapy Diagnoses It band syndrome, right Trochanteric bursitis of right hip Procedures CT OFFICE/OUTPATIENT [facility] MDM 60 MINUTES Zack Conn, PA [address] [facility] [place] [address] Daja Carter, PT [address] [place] [address] Referral IDStatusReasonStart DateExpiration DateVisits RequestedVisits [id number] Review Specialty Services Required / Additional Source Comments INFORMATION SOURCE (unrecogn ized section and content) DATE CREATED AUTHOR 09/14/2018 [facility] DATE CREATED AUTHOR AUTHOR'S ORGANIZ ATION 10/01/2020 [facility] DATE CREATED AUTHOR AUTHOR'S ORGANIZ ATION 10/05/2020 [facility] DATE CREATED AUTHOR AUTHOR'S ORGANIZ ATION 09/09/2021 [facility] [employer] [facility] Super[facility] DATE CREATED AUTHOR AUTHOR'S ORGANIZ ATION 10/16/2023 [facility] DATE CREATED AUTHOR AUTHOR'S ORGANIZ ATION 07/28/2024 [facility] DATE CREATED AUTHOR AUTHOR'S ORGANIZ ATION 11/24/2024 [facility] EPIC Care Teams (unrecognized sec tion and content) Team Status: Inactive Member Role Status Dates Phillip Tripp DO Primary Care Provider Active Taran Rea DOEmerarkansas methodist medical centercy ProviderActive Team Status: Active Member Role Status Dates Phillip Tripp , Primary Care Provider Active Team Status: Inactive Member Role Status Dates Phillip Tripp , Primary Care Provider Active Ruby Cates ProviderActiveTeam MemberRelationshipSpecialty Start DateEnd Date Bella Camara MD [address] [place] [address] PCP - [facility]09/04/22 Morenita Corona, PA [address] [place] [address] PCP - [facility] [place] [employer]09/10/22Team MemberRelationshipSpecialtyStart Date End Date Bella Camara MD [address] [place] [address] PCP - [facility]09/04/22 Morenita Corona, PA [address] [place] [address] PCP - [facility] [place] [employer]09/10/22Team MemberRelationshipSpecialtyStart Date End Date Bella Camara MD [address] [place] [address] PCP - [facility]09/04/22 Morenita Corona, PA [address] [place] [address] PCP - [facility] [place] [employer]09/10/22Team MemberRelationshipSpecialtyStart Date End Date Bella Camara MD [address] [place] [address] PCP - [facility]09/04/22 Morenita Corona, PA [address] [place] [address] PCP - [facility] [place] [employer]09/10/22Team MemberRelationshipSpecialtyStart Date End Date Bella Camara MD [address] [place] [address] PCP - [facility] Medicine09/04/22 Morenita Corona, PA [address] [place] [address] PCP - [facility] [place] [employer]09/10/22Team MemberRelationshipSpecialtyStart Date End Date Bella Camara MD [address] [place] [address] PCP - [facility]09/04/22 Morenita Corona, PA [address] [place] [address] PCP - [facility] [place] [employer]09/10/22Te MemberRelationshipSpecialtyStart Date End Date Bella Camara MD [address] [place] [address] PCP - [facility] Medicine09/04/22 Morenita Corona, PA [address] [place] [address] PCP - [facility] [place] [employer]09/10/22 Team Status: Active Member Role Status Dates Miracle Padilla MD Primary Care Provider Active Team Status: Inactive Member Role Status Dates Miracle Padilla MD Primary Care Provider Active S tart: January 06, 2024 End: January 06, 2024Blanca Sellers ProviderActiveStart: January 06, 2024 End: January 06, 2024Team MemberRelationshipSpecialtyStart DateEnd Date Bella Camara MD [address] [place] [address] PCP - GeneralFamily MedicineTeam MemberRelationshipSpecialtyStart DateEnd Date Bella Camara MD [address] [place] [address] PCP - GeneralFamily Medicine09/04/22Team MemberRelationshipSpecialtyStart DateEnd Date Bella Camara MD [address] [place] [address] PCP - GeneralFamily Medicine09/04/22Team MemberRelationshipSpecialtyStart DateEnd Date Miracle Padilla MD [address] [place] [address] PCP - GeneralFamily Medicine01/07/24Team MemberRelationshipSpecialtyStart DateEnd Date Miracle Padilla MD [address] [place] [address] PCP - GeneralFamily Medicine01/07/24 Team Status: Inactive Member Role Status Dates Usman Murillo MD Attending Provider Active St art: July 03, 2024 End: July 03, 2024Team MemberRelationshipSpecialtyStart DateEnd Date Miracle Padilla MD [address] [place] [address] PCP - GeneralFamily Medicine01/07/24Team MemberRelationshipSpecialtyStart DateEnd Date Miracle Padilla MD [address] [place] [address] PCP - GeneralFamily Medicine01/07/24Team MemberRelationshipSpecialtyStart DateEnd Date Miralce Padilla MD [address] [place] [address] PCP - GeneralFamily Medicine01/07/24Team MemberRelationshipSpecialtyStart DateEnd Date Miracle Padilla MD [address] [place] [address] PCP - GeneralFamily Medicine01/07/24Team MemberRelationshipSpecialtyStart DateEnd Date Miracle Padilla MD [address] [place] [address] PCP - GeneralFamily Medicine01/07/24Team MemberRelationshipSpecialtyStart DateEnd Date Miracle Padilla MD [address] [place] [address] PCP - GeneralFamily Medicine01/07/24Team MemberRelationshipSpecialtyStart DateEnd Date Miracle Padilla MD [address] [place] [address] PCP - GeneralFamily Medicine01/07/24Team MemberRelationshipSpecialtyStart DateEnd Date Bella Camara MD [address] [place] [address] PCP - GeneralFamily Medicine09/04/ Miracle Padilla MD [address] [place] [address] PCP - GeneralFamily Medicine01/07/24 Goals (unrecognized section and content) Goals may be documented in a n alternate sectionGoals may be documented in an alternate section No data available for this section No data available for this section No data available for this sectionGoals may be documented in an alternate sectionGoals may be documented in an alternate section Reason for Visit (unrecogniz ed section and content) ReasonCommentsPainReasonCommentsFacial InjuryReasonCommentsHip PainReasonOnset JubtRrapnnieXkbwdlvh06/25/2024ReasonOnset DateCommentsER Follow-up01/07/2024 ReasonCommentsContraceptionPatient here today for second test and depo Rx.ReasonCommentsAnnual ExamIn need of annual lab work.Med RefillPatient in need of refills on all medications.ContraceptionIn need of restarting depo injection. test completed [...] BE BASED ON THE PRIMARY CLINICAL RECORDS. [employer] provides no warranty or guarantee of the accuracy or completeness of information in this document.
--- OUTSIDE RECORDS SUMMARY | 2025-03-16 18:39 | XMS_ITS | Clinical Summary ---
Author Organization [facility] Address [address] [place] [address] Care Team Providers Care Band Salvager Name Role Phone Baldomero Padilla MD Primary Care Provider [phone] Allergies Active AllergyReactionsCriticalityNoted OlpxQavzildwIdtwzerf39/09/2022 Other Reaction(s): lip swelling JuctbaeuzysLzapOwm45/17/2021 Medications MedicationSigDispense QuantityRefillsLast FilledStart DateEnd DateStatus albuterol HFA 90 mcg/act inhaler Indications:Acute coughInhale 2 puffs every 4 (four) hours if needed (cough). 18 g ctive albuterol (2.5 MG/3ML) 0.083% nebulizer solution Indications:Shortness of breathTake 3 mL (2.5 mg) by nebulization every 6 (six) hours if needed for wheezing. 75 mL 111ctive Additional Information Patient not taking.Reported on 11/23/2024 acetaminophen (Tylenol) 325 MG tablet Active Rimegepant Sulfate (Nurtec) 75 MG tablet dispersible Indications:Acute migraineTake 1 tablet by mouth every other day 30 tablet 4Active buPROPion XL (Wellbutrin XL) 150 MG 24 hr tablet Indications:Anxiety1 tab po bid 180 tablet 5Active topiramate (Topamax) 25 MG tablet Indications:Atypical migraineTake 1 tablet (25 mg) by mouth at bedtime 30 tablet /ctive traZODone (Desyrel) 50 MG tablet Indications:Difficulty sleepingTake 1 tablet (50 mg) by mouth at bedtime 90 tablet /ctive etodolac XL (Lodine XL) 500 MG 24 hr tablet Indications:Trochanteric bursitis of right hip,S/P lateral meniscus repair of right kneeTake 1 tablet (500 mg) by mouth Daily 30 tablet 110/6Active busPIRone (Buspar) 10 MG tablet Indications:AnxietyTake 1 tablet (10 mg) by mouth in the morning and 1 tablet (10 mg) in the evening and 1 tablet (10 mg) before bedtime. 90 tablet 5Active medroxyPROGESTERone (Depo-Provera) 150 MG/ML suspension prefilled syringe injection syringe Indications:Encounter for surveillance of injectable contraceptiveInject 1 mL (150 mg) into the shoulder, thigh, or buttocks 1 (one) time for 1 dose 1 mL 5Active fluticasone (Flonase) 50 MCG/ACT nasal spray Indications:PND (post-nasal drip)Administer 1-2 sprays into each nostril Daily Shake gently. Before first use, prime pump. After use, clean tip and replace cap. 16 g 5Active meclizine (Antivert) 25 MG tablet Indications:VertigoTake 1 tablet (25 mg) by mouth 3 (three) times a day as needed for dizziness 30 tablet ctive Active Problems ProblemNoted DateDiagnosed DateS/P right knee hfbraicyoff74/10/2024cute pain of right knee05/31/2023Trochanteric bursitis of right hip05/31/2023Major depressive disorder, single episode, mild (F32.0)05/31/2023cne afwcxciv17/23/2023igarette nnbzof4209/24/2022Sciatica associated with disorder of lumbosacral spine09/09/2022 Low back pain with kcgblygz21/31/2023Idiopathic scoliosis of lumbar region 09/09/2022sychogenic nonepileptic kaeahuj1711/14/20180891Zcbgmhy92/07/2017 Resolved Problems ProblemNoted DateDiagnosed DateResolved DateInfluenza A05/10/092023/01/2025 Contusion of hand, right5Chest pain Asymptomatic bacteriuria during ([facility])bdominal cramping affecting ([facility])Rotator cuff injury Dysuria1cute cough Acute ydcxddbap38Olecranon bursitis of left elbow09/09/2022 11/25/2022 Immunizations ImmunizationAdministration DatesNext JfeQYwF9107/24/2003DTaP, Unspecified 10/17/1999,04/10/1999,01/29/1999,1998Hep B, Adolescent or Pediatric 04/10/1999,1998,1998HiB, iwuglftmnhf54/07/2000,04/10/1999,01/29/1999 ,1998IPV07/24/2003,05/14/1999,01/29/1999,1998Influenza Whole 03/01/2007,02/12/2000Influenza, injectable, sxicyvfkxqgh53/10/2023Influenza, injectable, quadrivalent, preservative free01/15/2020,01/26/2019,06/06/2018 Influenza, live, mskveulyne33/21/2009Influenza, seasonal, awbigoxcap01/24/2008, 03/22/2003,04/08/2000Influenza, seasonal, injectable, preservative free 01/22/2011MMR07/24/2003,10/17/1999Meningococcal ISO8A9501/22/2011Novel nofuckdha-V0I3-09, preservative-free02/16/2009OPV1Pneumococcal Conjugate PCV 7009/30/20006528Hqym90/17/2019,06/21/2018,01/22/2011 Family History Medical HistoryRelationNameCommentsArthritisFatherPaulArthritisMaternal GrandfatherGrandfather (both)COPDMaternal GrandfatherGrandfather (both)Cancer Maternal GrandfatherGrandfather (both)HTNMaternal GrandfatherGrandfather (both) Heart diseaseMaternal GrandfatherGrandfather (both)StrokeMaternal Grandfather Grandfather (both)CancerMaternal GrandmotherKarenEndometriosisMotherDiabetes Paternal GrandfatherGrandpaHTNPaternal GrandfatherGrandpaCancerPaternal GrandmotherKarenOther cancerPaternal GrandmotherKarenBladderStrokeSibling RelationNameStatusCommentsFatherPaulAliveMaternal GrandfatherGrandfather (both) AliveMaternal GrandmotherKarenDeceasedMotherAlivePaternal GrandfatherGrandpa AlivePaternal NlwwelwhlbmZhnhgUgmsxkkrSgyezjoErdfmyx0PcwXigwu Social History Tobacco UseTypesPacks/DayYears UsedDateSmoking Tobacco: FormerCigarettes0.311.3 Started: 04/12/2014Smokeless Tobacco: Never Tobacco Cessation:Counseling Given: Not Answered Alcohol UseStandard Drinks/WeekCommentsNot Currently0 (1 standard drink = 0.6 oz pure alcohol)1-2 drinks less than monthly in the past year, Caffeine intake: 3-4 cups per day occasional, soda/popHumiliation, Afraid, Rape, and Kick questionnaireAnswerDate RecordedWithin the last year, have you been afraid of your partner or ex-partner?No10/14/2022Within the last year, have you been humiliated or emotionally abused in other ways by your partner or ex-partner?No 10/14/2022Within the last year, have you been kicked, hit, slapped, or otherwise physically hurt by your partner or ex-partner?No10/14/2022Within the last year, have you been raped or forced to have any kind of sexual activity by your part ner or ex-partner?No10/14/2022Social Connection and Isolation PanelAnswerDate RecordedIn a typical week, how many times do you talk on the phone with family, friends, or neighbors?Three times a week10/14/2022How often do you get together with friends or relatives?Once a week10/14/2022How often do you attend islam or protestant services?Patient xkzevtcj95/05/2023o you belong to any clubs or organizations such as islam groups, unions, fraternal or athletic groups, or school groups?No10/14/2022How often do you attend meetings of the clubs or organizations you belong to?Patient tswloipa92/05/2023re you , , , , never , or living with a partner?Living with partner 10/14/2022UDIT-CAnswerDate RecordedQ1: How often do you have a drink containing alcohol?2-4 times a month10/14/2022Q2: How many drinks containing alcohol do you have on a typical day when you are drinking?5 or Q3: How often do you have six or more drinks on one occasion?Ttuhptf8210/14/2022Overall Financial Resource Strain (CARDIA)AnswerDate RecordedHow hard is it for you to pay for the very basics like food, housing, medical care, and heating?Not hard at all 10/14/2022HQ-2AnswerDate RecordedPatient Health Questionnaire-2 Score0 11/23/2024[facility] - Occupational Stress QuestionnaireAnswerDate RecordedDo you feel stress - tense, restless, nervous, or anxious, or unable to sleep at night because yourmind is troubled all the time - these days?To some gqsqsy4410/14/2022Exercise Vital SignAnswerDate Recorded On average, how many days per week do you engage in moderate to strenuous exercise (like a brisk walk)?3 days10/14/2022On average, how many minutes do you engage in exercise at this level?30 min10/14/2022Hunger Vital SignAnswerDate RecordedWithin the past 12 months, you worried that your food would run out before you got the money to buymore.Never true10/14/2022Within the past 12 months, the food you bought just didn't last and you didn't have money to get more.Never true10/14/2022RAPARE - TransportationAnswerDate RecordedIn the past 12 months, has lack of transportation kept you from medical appointments or from getting medications?No10/14/2022In the past 12 months, has lack of transportation kept you from meetings, work, or from getting things needed for daily living?10/14/2022Housing Stability Vital SignAnswerDate RecordedIn the last 12 months, was there a time when you were not able to pay the mortgage or rent on time?No10/14/2022In the last 12 months, how many places have you lived?1 10/14/2022In the last 12 months, was there a time when you did not have a steady place to sleep or slept in [place] (including now)?No10/14/2022Comments NoSex and Gender InformationValueDate RecordedSex Assigned at BirthNot on file Legal RctLsrmnk07/15/2023 7:17 PM EDTGender IdentityNot on fileSexual OrientationNot on file Last Filed Vital Signs Vital SignReadingTime TakenCommentsBlood Kfaawekp598/7408 8:33 AM EDT Ftvhh236311/23/2024 8:33 AM TJASjpjsqwzcvx83.9 ??C (98.4 ??F)11/23/2024 8:33 AM EDTRespiratory Lcab5472 4:24 PM EDTOxygen Dmyshlrnso46%11/23/2024 8:33 AM EDTInhaled Oxygen Concentration--Mvzqql43.1 kg (150 lb 3.2 oz)11/23/2024 8:33 AM FTLBurwtc514.3 cm (5' 9 )11/23/2024 8:33 AM EDTBody Mass Index22.18011/23/2024 8:33 AM EDT Plan of Treatment Health MaintenanceDue DateLast DoneCommentsCOVID-19 Vaccine ( season) /10/2021, 05/19/2021Influenza Vaccine (#1)/01/2023, 01/15/2020, 01/26/2019, Additional history existsPneumococcal Vaccine: Pediatrics (0 to 5 Years) and At-Risk Patients (6 to 64 Years)Aged Out09/30/2000 No longer eligible based on patient's age to complete this topic Care Teams Team MemberRelationshipSpecialtyStart DateEnd Date Baldomero Padilla MD [address] [place] [address] PCP - GeneralFamily Medicine01/07/24
== END 2025-03-16 19:14 | disposition home or self-care (01) ==
PROVIDERS: Emergency Provider Emergency Medicine; PCP Student in an Organized Health Care Education/Training Program
DX: R11.2 Nausea with vomiting, unspecified (principal)
CPT/HCPCS: 36415; 80048; 81001; 84703; 85007; 85027; 96361; 96374; 99284; 99285; J2405